=== PATIENT | female | born 1940 | race Caucasian/White ===

== ENCOUNTER → 2017-07-29 | Outpatient (CLI) | payer MEDICARE, BC ==
[2017-07-29 09:00] LABS: Basophils # (A) 0.1 k/uL (0-0.2); Basophils % (A) 1 %; Eosinophils # (A) 0.4 k/uL (0-0.7); Eosinophils % (A) 7 %; HCT 41.4 % (34.0-46.0); HGB 13.4 gm/dL (11.4-16.0); Lymphocytes # (A) 1.3 k/uL (1.0-4.8); Lymphocytes % (A) 24 %; MCH 31.4 pg (25.0-35.0); MCHC 32.3 g/dL (31.0-37.0); MCV 97.3 fL (80.0-100.0); Mean Platelet Volume 6.1; Monocytes # (A) 0.6 k/uL (0-1.0); Monocytes % (A) 11 %; Neutrophils # (A) 2.8 k/uL (1.3-7.7); Neutrophils % (A) 53 %; Platelet Count 309 k/uL (150-450); RBC 4.25 m/uL (3.80-5.40); RDW 15.2 % (11.5-15.5); WBC 5.3 k/uL (3.8-10.6)
[2017-07-29 09:06] LABS: ALT 40 U/L (9-52); AST 34 U/L (14-36); Albumin 4.4 g/dL (3.5-5.0); Alkaline Phosphatase 75 U/L (38-126); Anion Gap 9 mmol/L; Blood Urea Nitrogen 13 mg/dL (7-17); Calcium 9.5 mg/dL (8.4-10.2); Carbon Dioxide 27 mmol/L (22-30); Chloride 97 mmol/L (98-107); Cholesterol 306 mg/dL (<200); Creatine Kinase 43 U/L (30-135); Glucose 99 mg/dL (74-99); Potassium 4.4 mmol/L (3.5-5.1); Sodium 133 mmol/L (137-145); Total Bilirubin 0.8 mg/dL (0.2-1.3); Triglycerides 91 mg/dL (<150); Uric Acid 5.3 mg/dL (3.7-7.4)
[2017-07-29 09:13] LABS: LDL Cholesterol,Calculated 97 mg/dL (0-99)
[2017-07-29 09:21] LABS: T4, Free (Free Thyroxine) 0.97 ng/dL (0.78-2.19)
[2017-07-29 09:38] LABS: HDL Cholesterol 191 mg/dL (40-60)
[2017-07-29 09:56] LABS: Appearance,Urine Cloudy (Clear); Bacteria,Urine Rare /hpf; Bilirubin,Urine Negative (Negative); Blood,Urine Negative (Negative); Color,Urine Yellow; Glucose,Urine (UA) Negative (Negative); Hyaline Casts,Urine 1 /lpf (0-2); Ketones,Urine Negative (Negative); Leukocyte Esterase,Urine Negative (Negative); Mucus,Urine Rare /hpf; Nitrite,Urine Negative (Negative); PH, Urine 6.5 (5.0-8.0); Protein,Urine Negative (Negative); RBC,Urine <1 /hpf (0-5); Squamous Epithelial Cell,Urine 21 /hpf (0-4); Urobilinogen,Urine <2.0 mg/dL (<2.0); WBC,Urine 1 /hpf (0-5)
[2017-07-29 16:29] LABS: Vitamin D 25 Hydroxy 18.4 ng/mL (30.0-100.0)
[2017-07-29 18:14] LABS: Folate, Serum 9.6 ng/mL
[2017-07-29 20:32] LABS: Hemoglobin A1C 5.3 % (4.0-6.0)
--- NOTE | 2017-08-03 09:40 | P.ARTDOP ---
Arterial Doppler LOWER EXTREMITY ARTERIAL DOPPLER: DATE OF SERVICE: 07/29/2017 Reason for study: Bilateral leg pain at rest. Doppler waveforms: Multiphasic throughout on the left. Below the popliteal cyst atypical on the right.. Pulse volume recording: Mild distal blunting. Pressure gradients: Across the knee bilaterally and mild gradient below the knee on the right. Ankle-brachial indices: 0.69 on the right and 0.82 on the left. Toe pressures: 67 on the right, 113 on the left Impression: Moderate right fem-pop disease. Mild left fem-pop disease. Clinical correlation recommended. Does not appear to be severe enough for true rest pain..
== END | disposition home or self-care (01) ==
LOC: RADUSWWP 08:23
PROVIDERS: ATTEND Internal Medicine
DX: I73.9 Peripheral vascular disease, unspecified (principal); E55.9 Vitamin D deficiency, unspecified; I10 Essential (primary) hypertension; R53.83 Other fatigue; J44.9 Chronic obstructive pulmonary disease, unspecified
CPT/HCPCS: 80053; 80061; 81001; 82306; 82550; 82607; 82746; 83036; 84439; 84443; 84550; 85025; 93923

== ENCOUNTER 2017-10-22 08:42 | Emergency (ER) | payer MEDICARE, BC ==
[2017-10-22 08:56] VITALS: RESP 18; TEMP 98
[2017-10-22] MEDS ORDERED: KETOROLAC 30 MG/ML 1 ML VIAL IM STA (09:22)
[2017-10-22] MEDS ORDERED: ORPHENADRINE 30 MG/ML 2 ML VIAL IM STA (09:22)
--- NOTE | 2017-10-22 09:29 | ED ---
General Adult HPI - General Chief complaint: Back Pain/Injury Stated complaint: Back Pain Time Seen by Provider: 10/22/17 08:50 Source: patient, RN notes reviewed Mode of arrival: ambulatory Limitations: no limitations - History of Present Illness Initial comments: This is a 76-year-old female who presents to the emergency room complaining of left-sided back pain. Patient states it's spasm and she's had for many years. Patient states she is out of her pain medicine because she has not followed up with her pain doctor recently. Patient states the pain is on the paraspinous muscles on the left. Patient denies any new injury or trauma. Patient denies any numbness weakness. Patient denies any fever chills. Patient states this pain is the same pain she is gotten for many many years. - Related Data Previous Rx's Medication Instructions Recorded Hydrocodone/Acetaminophen [[place] 1 each PO Q4HR PRN #14 tab 10/22/17 5-325] Ibuprofen [Motrin] 600 mg PO Q6HR PRN #20 tab 10/22/17 Orphenadrine [Norflex] 100 mg PO Q12H #20 tablet.er 10/22/17 Allergies Allergy/AdvReac Type Severity Reaction Status Date / Time diazepam [From Valium] Allergy Unknown Verified 11/16/15 08:07 Review of Systems ROS Statement: Those systems with pertinent positive or pertinent negative responses have been documented in the HPI. ROS Other: All systems not noted in ROS Statement are negative. Past Medical History Past Medical History: COPD, Hypertension Additional Past Medical History / Comment(s): BACK PAIN, HIP PAIN History of Any Multi-Drug Resistant Organisms: None Reported Past Surgical History: Appendectomy, Section, Hysterectomy Past Psychological History: No Psychological Hx Reported Smoking Status: Never smoker Past Alcohol Use History: Daily Past Drug Use History: None Reported General Exam - General Exam Comments Initial Comments: GENERAL: Patient is well-developed and well-nourished. Patient is nontoxic and well- hydrated and is in mild distress. ENT: Neck is soft and supple. No significant lymphadenopathy is noted. Oropharynx is clear. Moist mucous membranes. Neck has full range of motion without eliciting any pain. EYES: The sclera were anicteric and conjunctiva were pink and moist. Extraocular movements were intact and pupils were equal round and reactive to light. Eyelids were unremarkable. PULMONARY: Unlabored respirations. Good breath sounds bilaterally. No audible rales rhonchi or wheezing was noted. CARDIOVASCULAR: There is a regular rate and rhythm without any murmurs gallops or rubs. ABDOMEN: Soft and nontender with normal bowel sounds. SKIN: Skin is clear with no lesions or rashes and otherwise unremarkable. NEUROLOGIC: Patient is alert and oriented x3. Cranial nerves II through XII are grossly intact. Motor and sensory are also intact. Normal speech, volume and content. Symmetrical smile. MUSCULOSKELETAL: Patient's paraspinous muscles on the left lower back are tender to palpation. LYMPHATICS: No significant lymphadenopathy is noted PSYCHIATRIC: Normal psychiatric evaluation. Limitations: no limitations Course Vital Signs 10/22/17 08:51 Temperature 98.0 F Pulse Rate 94 Respiratory 18 Rate Blood Pressure 198/99 O2 Sat by Pulse 94 L Oximetry Disposition Clinical Impression: Chronic back pain Disposition: HOME SELF-CARE Condition: Good Instructions: Chronic Back Pain (ED) Prescriptions: Hydrocodone/Acetaminophen [[place] 5-325] 1 each PO Q4HR PRN #14 tab PRN Reason: Pain Ibuprofen [Motrin] 600 mg PO Q6HR PRN #20 tab PRN Reason: For pain Orphenadrine [Norflex] 100 mg PO Q12H #20 tablet.er Is patient prescribed a controlled substance at d/c from ED?: Yes When asked, does pt state using other controlled substances?: No If prescribed controlled substance>3 days was MAPS reviewed?: Prescribed <3 Days If opioid is for acute pain is fill amount 7 days or less?: Yes If Rx opioid, was Start Talking consent form obtained?: Yes Referrals: Jessica Stanley MD [Primary Care Provider] - 1-2 days Time of Disposition: 10:27
[2017-10-22] MEDS ORDERED: HYDROmorphone 1 MG/ML 1 ML SYRINGE IM STA (10:04)
[2017-10-22 10:43] VITALS: BP 212/110; PULSE 93
== END 2017-10-22 10:43 | disposition home or self-care (01) ==
LOC: EC 08:42
DX: G89.29 Other chronic pain (principal); M54.9 Dorsalgia, unspecified; Z88.8 Allergy status to other drugs, medicaments and biological substances
CPT/HCPCS: 99283; 96372 ×3; J2360; J1885; J1170

== ENCOUNTER 2017-12-06 15:22 | Emergency (ER) | payer MEDICARE, BC ==
[2017-12-06] MEDS ORDERED: ACETAMINOPHEN TAB 325 MG TAB PO STA (15:52)
--- NOTE | 2017-12-06 15:55 | ED ---
Fall HPI - General Chief Complaint: Fall Stated Complaint: fall Time Seen by Provider: 12/06/17 15:38 Source: patient, EMS, RN notes reviewed Mode of arrival: EMS Limitations: no limitations - History of Present Illness Initial Comments: This is a 77-year-old female who presents to the emergency department with chief complaint of fall injury. Patient states prior to arrival she was playing cards at the local [employer]. She states that she was walking down the [employer] ramp, lost her balance and fell forward, landing on her face. Denies loss of consciousness, nausea or vomiting, dizziness. She does report a headache and facial pain. Denies being on any blood thinners. Denies neck or back pain. Denies any other injuries or trauma. Denies chest pain or shortness of breath, abdominal pain, nausea or vomiting. - Related Data Home Medications Medication Instructions Recorded Confirmed Albuterol Sulfate [Proair Hfa] 1 - 2 puff INHALATION Q6HR PRN 12/02/17 12/02/17 Cyclobenzaprine [Flexeril] 10 mg PO DAILY PRN 12/02/17 12/02/17 Hydrocodone/Acetaminophen 1 tab PO DAILY PRN 12/02/17 12/02/17 [Hydrocodone-Acetamin 7.5-300] Levothyroxine Sodium 25 mcg PO DAILY 12/02/17 12/02/17 Losartan [Cozaar] 50 mg PO QAM 12/02/17 12/02/17 Turmeric Root Extract [Turmeric] 500 mg PO DAILY 12/02/17 12/02/17 buPROPion [Wellbutrin] 75 mg PO DAILY 12/02/17 12/02/17 Previous Rx's Medication Instructions Recorded Cephalexin [Keflex] 500 mg PO Q12HR #10 cap 12/06/17 Allergies Allergy/AdvReac Type Severity Reaction Status Date / Time No Known Allergies Allergy Verified 12/01/17 15:53 Review of Systems ROS Statement: Those systems with pertinent positive or pertinent negative responses have been documented in the HPI. ROS Other: All systems not noted in ROS Statement are negative. Past Medical History Past Medical History: COPD, Hypertension, Pulmonary Embolus (PE), Thyroid Disorder Additional Past Medical History / Comment(s): BACK AND HIP PAIN. Hx irregular heartbeat yrs ago. Hx PE yrs ago. History of Any Multi-Drug Resistant Organisms: None Reported Past Surgical History: Appendectomy, Section, Hysterectomy Additional Past Surgical History / Comment(s): Section X2, bilateral cataract removal with lens implants. Past Anesthesia/Blood Transfusion Reactions: No Reported Reaction Past Psychological History: No Psychological Hx Reported Smoking Status: Former smoker Past Alcohol Use History: Daily Past Drug Use History: None Reported - Past Family History Brother(s) Family Medical History: Cancer Daughter(s) Additional Family Medical History / Comment(s): 2 daughter's with anerysyms. General Exam - General Exam Comments Initial Comments: General: Awake and alert, well-developed; in no apparent distress. Patient is lying comfortably on ED stretcher. HEENT: Left frontal and supraorbital soft tissue hematomas. Superficial skin abrasion to the bridge of the nose and left ala. Superficial skin abrasion, ecchymosis and swelling left lower lip and chin. Pupils are equal, round and reactive to light. Extraocular movements intact. Oropharynx moist without erythema. Neck: Supple. Normal ROM. No tenderness. Cardiovascular: Regular rate and rhythm. No murmurs, rubs or gallops. Chest symmetrical. Respiratory: Lungs clear to auscultation bilaterally. No wheezes, rales or rhonchi. Normal respiratory effort with no use of accessory muscles. Abdomen: Soft, non-tender, non-distended. No rigidity, rebound or guarding. Musculoskeletal: Normal ROM, no tenderness bilateral upper and lower extremities. Skin: [place], warm and dry. Superficial skin tear with no active bleeding to the lateral dorsal right wrist. Neurological: Alert and oriented x3. CN II-XII grossly intact. Speech is fluent and answers are appropriate. No focal neuro deficits. Psychiatric: Normal mood and affect. No overt signs of depression or anxiety noted. Limitations: no limitations Back exam: Present: normal inspection, full ROM. Absent: tenderness, paraspinal tenderness, vertebral tenderness Course Vital Signs 12/06/17 12/06/17 12/06/17 15:36 18:05 18:15 Temperature 97.3 F L 97.6 F Pulse Rate 100 91 92 Respiratory 22 18 18 Rate Blood Pressure 207/101 201/101 O2 Sat by Pulse 96 96 Oximetry Medical Decision Making - Medical Decision Making This is a 77-year-old female who presents to the emergency department with chief complaint of fall injury. Patient reports losing her balance and falling forward, landing on her face. Patient sustained hematomas to the left frontal and supraorbital regions, a superficial skin abrasion to the bridge of the nose and a superficial skin abrasion and ecchymosis to the left lower lip and chin. A computed tomography scan of the brain and facial bones was obtained. Computed tomography scan of the brain revealed no acute intracranial abnormalities. Computed tomography scan of the facial bones did reveal evidence for a chip fracture of the nasal bone. No other fractures were noted. Patient's wounds were thoroughly cleansed with sterile water. Dressings were placed. Patient was instructed to follow up with ENT within 1-2 days for evaluation of the nasal bone fracture. As there is overlying skin abrasion, this will be treated as an open fracture. Patient given a dose of Ancef in the emergency department and will be discharged home with Keflex. Patient is also made up-to-date with tetanus vaccination. Patient is in no acute distress and will be discharged home at this time. She is in agreement with plan and voices understanding. All questions have been answered. Upon discharge, patient states that she went to use the bathroom and noticed an abrasion to her left knee. Patient has normal range to motion of the knee and is ambulating normally. There is a skin tear to the lateral left knee as well as bruising medially. - Radiology Data Radiology results: report reviewed CT brain without contrast impression: 1. Fluid white matter hypodensities suggests severe burning of chronic small vessel ischemic disease. No acute intracranial abnormality seen. 2. Large left frontal and left supraorbital scalp contusion. No underlying calvarial fracture. 3. Facial bones reported separately. CT facial bones without contrast impression: 1. Left frontal and supraorbital as well as left pre-mandibular soft tissue contusions. 2. Additional soft tissue injury along the left anterior bridge of the nose with suggestion of a tiny underlying 2-3 mm chip fracture of the anterior nasal bone. 3. Leftward nasal septal deviation Disposition Clinical Impression: Facial contusion, Nasal bone fracture, Fall Disposition: HOME SELF-CARE Condition: Good Instructions: Nasal Fracture (ED), Fall Prevention for Older Adults (ED), Facial Contusion (ED) Additional Instructions: Please take medications as prescribed. As discussed, please follow-up with ENT within 1-2 days. Please follow up with primary care provider within 1-2 days. Return to emergency department if symptoms should worsen or any concerns arise. Prescriptions: Cephalexin [Keflex] 500 mg PO Q12HR #10 cap Is patient prescribed a controlled substance at d/c from ED?: No Referrals: Jesscia Stanley MD [Primary Care Provider] - 1-2 days Akil Hallman MD [STAFF PHYSICIAN] - 1-2 days Time of Disposition: 18:00
--- NOTE | 2017-12-06 16:22 | CT ---
EXAMINATION TYPE: CT brain wo con DATE OF EXAM: 12/06/2017 COMPARISON: None HISTORY: 77-year-old female with fall today. No LOC. Multiple facial injuries. TECHNIQUE: Examination was done in axial plane without intravenous contrast. Coronal and sagittal r econstructions performed. CT DLP: 1964 mGycm (total of 2 scans) Automated exposure control for dose reduction was used. FINDINGS: There is no evidence of acute intracranial hemorrhage, acute ischemic changes, mass, mass-effect, or extra-axial fluid collection. There is no effacement of cerebral sulci or basal subarachnoid cister ns. There is no hydrocephalus. There is no midline shift. Larson-white matter distinction is preserv ed. Large left frontal scalp and supraorbital contusion. No underlying calvarial fracture. There is severe confluent white matter hypodensities in both cerebral hemispheres and mild central ce rebral atrophy. Atherosclerotic calcifications within the carotid siphons. Mastoid air cells well pneumatized. Facial bones reported separately. IMPRESSION: 1. Confluent white matter hypodensities suggest severe burden of chronic small vessel ischemic diseas e. No acute intracranial abnormality seen. 2. Large left frontal and left supraorbital scalp contusion. No underlying calvarial fracture. 3. Facial bones reported separately.
--- NOTE | 2017-12-06 16:31 | CT ---
EXAMINATION TYPE: CT facial bones wo con DATE OF EXAM: 12/06/2017 COMPARISON: HISTORY: None 77-year-old female fall, pain, facial injury TECHNIQUE: Contiguous axial scanning of the without IV contrast. Coronal and sagittal reconstructions performed. CT DLP: 1964 from 1 scan with multiple recons for brain and facial mGycm Automated exposure control for dose reduction was used. FINDINGS: There is left premandibular soft tissue contusion. No underlying mandibular fracture. The TMJs are in tact. Zygomatic arches in pterygoid plates are intact. Orbits and globes are intact. There is some soft tissue air along the left anterior nose. Leftward nasal septal deviation. Minimal irregularity along the left median tip of the nasal bone, axial image 52 and coronal image 9. IMPRESSION: 1. LEFT FRONTAL AND SUPRAORBITAL WELL LEFT PREMANDIBULAR SOFT TISSUE CONTUSIONS. 2. ADDITIONAL SOFT TISSUE INJURY ALONG THE LEFT ANTERIOR BRIDGE OF THE NOSE WITH SUGGESTION OF A TINY UNDERLYING 2 TO 3 MM CHIP FRACTURE OF THE ANTERIOR NASAL BONE, AXIAL IMAGE 52 AND CORONAL IMAGE 9. 3. LEFTWARD NASAL SEPTAL DEVIATION.
[2017-12-06] MEDS ORDERED: ceFAZolin 1,000 MG VIAL IM STA (17:02)
[2017-12-06] MEDS ORDERED: DIPH,PERTUS(ACELL)TETVAC-LF 0.5 ML VIAL IM ONE (17:03)
[2017-12-06] MEDS ORDERED: cloNIDine HCL 0.2 MG TAB PO STA (18:05)
[2017-12-06 18:07] VITALS: BP 201/101; RESP 18
[2017-12-06 18:28] VITALS: PULSE 92; TEMP 97.6
== END 2017-12-06 16:15 | disposition home or self-care (01) ==
LOC: EC 15:22
DX: S02.2XXA Fracture of nasal bones, initial encounter for closed fracture (principal); S00.531A Contusion of lip, initial encounter; S00.83XA Contusion of other part of head, initial encounter; S81.012A Laceration without foreign body, left knee, initial encounter; J44.9 Chronic obstructive pulmonary disease, unspecified; I10 Essential (primary) hypertension; Z79.899 Other long term (current) drug therapy; Z86.711 Personal history of pulmonary embolism; Z87.891 Personal history of nicotine dependence; W01.198A Fall on same level from slipping, tripping and stumbling with subsequent striking against other object, initial encounter; Y93.01 Activity, walking, marching and hiking
CPT/HCPCS: 70486; 70450; 90715; 99284; 90471; 96372; J0690

== ENCOUNTER 2017-12-07 12:19 | Day surgery (SDC) | payer MEDICARE, BC ==
[2017-12-01 16:18] VITALS: BMI 26.8
[2017-12-07] MEDS ORDERED: SODIUM CHLORIDE 0.9% 1,000 ML IV ONE (13:05)
[2017-12-07] MEDS ORDERED: ASPIRIN 325 MG TAB PO STA (13:16)
[2017-12-07] MEDS ORDERED: ATORVASTATIN 80 MG TAB PO STA (13:16)
[2017-12-07] MEDS ORDERED: SODIUM CHLORIDE 0.9% 1,000 ML in EMPTY BAG 1 BAG IV ONE (13:16)
[2017-12-07] MEDS ORDERED: ALPRAZolam 0.25 MG TAB PO PRN (13:16)
[2017-12-07] MEDS ORDERED: ALPRAZolam 0.5 MG TAB PO PRN (13:16)
[2017-12-07] MEDS ORDERED: NITROGLYCERIN SL TABS 0.4 MG TAB SUBLINGUAL PRN (13:16)
[2017-12-07] MEDS ORDERED: fentaNYL (PF) 50 MCG/ML 2 ML AMP IVP ONE (15:03)
[2017-12-07] MEDS ORDERED: MIDAZOLAM 2 MG/2 ML VIAL IVP ONE (15:03)
[2017-12-07] MEDS ORDERED: LIDOCAINE 1% (PF) 10MG/ML VIAL SQ ONE (15:06)
[2017-12-07] MEDS ORDERED: IOPAMIDOL-370 125ML BTL INJ ONE (15:19)
[2017-12-07] MEDS ORDERED: IOPAMIDOL-250 50ML BTL INTRAARTER ONE (15:26)
[2017-12-07] MEDS ORDERED: RX INFO: IV CONTRAST WAS GIVEN 1 EACH MISC MISCELLANE PRN (15:37)
[2017-12-07] MEDS ORDERED: SODIUM CHLORIDE 0.9% 1,000 ML IV SCH (15:45)
--- NOTE | 2017-12-07 16:33 | IR ---
Fluoroscopy HISTORY: Pain in leg 4.4 minutes fluoroscopy time supplied to the referring clinician. 500 intraoperative C-arm images do cument the procedure. See dictated report from cardiology.
--- NOTE | 2017-12-07 16:44 | LTR ---
DATE OF SERVICE: December 07, [address] Stanley: Ms. Yecenia Murcia underwent a heart catheterization as well as an abdominal aortogram and bilateral lower extremities runoff. The heart catheterization revealed extremely calcified right and left coronary system with severe triple-vessel coronary artery disease. The abdominal aortogram and bilateral lower extremity runoff revealed severe extremely calcified peripheral arterial system with severe disease involving the SFA bilaterally. I am going to discharge the patient home later on today and I will follow up with her in the office to discuss with her the option of revascularization of the heart as well as the legs. I want to thank you for allowing us to participate in her care and please do not hesitate to call if you have any questions or concerns. Sincerely, SHILPI / LUISN: [id number] /
--- NOTE | 2017-12-07 16:44 | CC ---
CARDIAC CATHETERIZATION REPORT DATE OF SERVICE: December 07, 2017 PERFORMING PHYSICIAN: Chapo Miranda MD, internet e commerce specialist. PROCEDURE PERFORMED: 1. Selective right and left coronary angiogram. 2. Left heart catheterization. INDICATION: This is a pleasant 77-year-old female patient who was experiencing symptoms of exertional dyspnea concerning for angina. She underwent a myocardial perfusion imaging stress test and that revealed ischemia in the distribution of 3 coronary arteries. Because of that, heart catheterization was advised. APPROACH: Right common femoral artery. COMPLICATION: None. LEVEL OF SEDATION: Moderate with sedation length of 14 minutes. PROCEDURE DESCRIPTION: After obtaining an informed consent, the patient was brought to the cardiac laboratory animal caretaker. The right common femoral artery was cannulated using micropuncture technique and a micropuncture wire passed easily. Then I placed a 6-[place] Islander sheath in the right common femoral artery. After that, I did selective right and left coronary angiogram using JR4 and JL4 catheters. Left heart catheterization was performed. A 6-[place] pigtail catheter. The procedure was completed without any complication. CORONARY ANGIOGRAM: 1. The right coronary artery is a large caliber vessel and it is a dominant vessel. The proximal RCA has eccentric lesion was best appreciated on the EVELIN caudal view and appears to be in the range of 70%. The mid RCA appeared to have mild disease only and RCA distally appeared to have mild disease only and bifurcates into PDA and PLV branches both are angiographically normal. 2. The left main is angiographically normal. It bifurcates into the circumflex and left anterior descending artery. 3. The left circumflex is a moderate caliber vessel. It is a nondominant vessel. The ostial circumflex appeared to have a lesion in the range of 70%. The proximal circumflex appeared to be angiographically normal and gives rise into the first OM branch which appeared to be angiographically normal. The circ in the midportion gives rise to a second OM branch which appeared to be angiographically normal. Then the circumflex continued after that in the AV groove as a moderate caliber vessel. 4. The LAD: The proximal LAD appeared to have disease in the range of 60% to 70%. The mid LAD appeared to have mild disease only and the LAD distally appeared to be angiographically normal. HEMODYNAMICS: The left ventricular end-diastolic pressure was around 11 mmHg and no gradient was identified across aortic valve. CONCLUSION: 1. Extremely calcified right and left coronary system. 2. Severe triple-vessel coronary artery disease. 3. Severe disease involving the proximal right coronary artery. 4. Severe disease involving the ostial left circumflex. 5. Severe disease involving the ostial left anterior descending artery. POSTPROCEDURE MANAGEMENT: 1. At this point maximize medical treatment. 2. Consult surgeon for the evaluation of coronary artery bypass grafting. MMYE / LUISN: [id number] /
--- NOTE | 2017-12-07 17:11 | AN ---
ANGIOGRAPHY REPORT DATE OF SERVICE: 12/07/2017 PERFORMING PHYSICIAN: Chapo Miranda MD, line service technician. PROCEDURES PERFORMED: 1. Abdominal aortogram. 2. Bilateral lower extremity runoff. INDICATION: This is a pleasant 77-year-old female patient who was experiencing bilateral lower extremity intermittent claudication and underwent an arterial duplex study which revealed severe femoropopliteal disease. Because of that, an abdominal aortogram and bilateral lower extremity runoff were advised. APPROACH: Right common femoral artery. COMPLICATIONS: None. LEVEL OF SEDATION: Moderate with sedation length of 10 minutes. PROCEDURE DESCRIPTION: The procedure was performed after heart catheterization was performed on the patient. Please refer to the description at the heart catheterization report. I did place a pigtail catheter at the aorta just by the takeoff of the renal arteries. Then I did bilateral lower extremity runoff after the catheter was pulled into above the of the right and left common iliac arteries. The procedure was completed without any complication. PERIPHERAL ANGIOGRAM: 1. The aorta appeared to have mild disease only and it is extremely calcified. 2. Common iliac arteries appeared to have mild to moderate diffuse disease. 3. Internal iliac arteries. The right and left internal iliac arteries appeared to be angiographically normal. 4. External iliac arteries. The right and left external iliac arteries appeared to have mild to moderate disease as well. 5. Common femoral arteries. The right and left common femoral arteries appeared to be angiographically normal. 6. Profundae. The right and left profundae are patent. 7. The SFA. The right SFA is extremely calcified with multiple lesions up to about 80% to 90% at the Sha canal. The left SFA is also extremely calcified with multiple lesions in the range of 80% at the Sha canal. 8. Popliteal. The right and left popliteals appeared to have mild to moderate diffuse disease. 9. Below the knee. Fully visualized arteries below the knees bilaterally. CONCLUSION: 1. 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 2. Severe femoropopliteal disease with severe bilateral SFA. 3. Severe [id number]-ukl-[id number] disease bilaterally. POST-PROCEDURE MANAGEMENT: 1. Maximize medical treatment at this point of time. 2. If the patient's symptoms persist in spite of maximized medical treatment, I would pursue an intervention of the right and left SFA. MMODL / IJN: [id number] /
[2017-12-07 19:30] VITALS: BP 136/80; PULSE 77; RESP 16; TEMP 98.4
== END 2017-12-07 21:10 | disposition home or self-care (01) ==
LOC: CATHCVL 12:19 → 1SOBS 15:37 → CATHCVL 21:10
PROVIDERS: ATTEND Internal Medicine Interventional Cardiology
DX: I25.10 Atherosclerotic heart disease of native coronary artery without angina pectoris (principal); I70.213 Atherosclerosis of native arteries of extremities with intermittent claudication, bilateral legs; I10 Essential (primary) hypertension; E78.5 Hyperlipidemia, unspecified; Z79.82 Long term (current) use of aspirin; J44.9 Chronic obstructive pulmonary disease, unspecified; Z79.890 Hormone replacement therapy; Z79.899 Other long term (current) drug therapy; Z87.891 Personal history of nicotine dependence; Z82.49 Family history of ischemic heart disease and other diseases of the circulatory system; E78.1 Pure hyperglyceridemia
CPT/HCPCS: 93458; 75625; 75716; C1894; C1769 ×2; J2250; J3010; J2001; Q9966; Q9967

== ENCOUNTER → 2017-12-22 | Outpatient (CLI) | payer MEDICARE, BC ==
[2017-12-22 10:03] LABS: HCT 36.2 % (34.0-46.0); HGB 11.8 gm/dL (11.4-16.0); MCH 31.7 pg (25.0-35.0); MCHC 32.6 g/dL (31.0-37.0); MCV 97.2 fL (80.0-100.0); Mean Platelet Volume 6.3; Platelet Count 293 k/uL (150-450); RBC 3.72 m/uL (3.80-5.40); RDW 13.8 % (11.5-15.5); WBC 5.9 k/uL (3.8-10.6)
[2017-12-22 10:23] LABS: ALT 31 U/L (9-52); AST 34 U/L (14-36); Albumin 3.9 g/dL (3.5-5.0); Alkaline Phosphatase 106 U/L (38-126); Anion Gap 8 mmol/L; Blood Urea Nitrogen 10 mg/dL (7-17); Calcium 9.2 mg/dL (8.4-10.2); Carbon Dioxide 27 mmol/L (22-30); Chloride 97 mmol/L (98-107); Cholesterol 208 mg/dL (<200); Glucose 110 mg/dL (74-99); Magnesium 1.8 mg/dL (1.6-2.3); Potassium 4.6 mmol/L (3.5-5.1); Sodium 132 mmol/L (137-145); Total Bilirubin 0.6 mg/dL (0.2-1.3); Total Protein 6.7 g/dL (6.3-8.2); Triglycerides 103 mg/dL (<150)
[2017-12-22 10:24] LABS: INR 1.4 (<1.2); Partial Thromboplastin Time 23.5 sec (22.0-30.0); Prothrombin Time 13.1 sec (9.0-12.0)
[2017-12-22 10:29] LABS: Appearance,Urine Clear (Clear); Bilirubin,Urine Negative (Negative); Blood,Urine Negative (Negative); Color,Urine Yellow; Glucose,Urine (UA) Negative (Negative); Ketones,Urine Negative (Negative); Leukocyte Esterase,Urine Negative (Negative); Nitrite,Urine Negative (Negative); PH, Urine 6.5 (5.0-8.0); Protein,Urine Negative (Negative); Specific Gravity,Urine 1.006 (1.001-1.035); Urobilinogen,Urine <2.0 mg/dL (<2.0)
[2017-12-22 10:46] LABS: LDL Cholesterol,Calculated 62 mg/dL (0-99)
[2017-12-22 10:47] LABS: HDL Cholesterol 125 mg/dL (40-60)
--- NOTE | 2017-12-22 12:38 | US ---
EXAMINATION TYPE: US carotid duplex BILAT DATE OF EXAM: 12/22/2017 COMPARISON: 10/27/2015 CLINICAL HISTORY: I25.10 CAD. EXAM MEASUREMENTS: RIGHT: Peak Systolic Velocity (PSV) cm/sec ----- Right CCA: 50.8 ----- Right ICA: 85.9 ----- Right ECA: 102. ICA/CCA ratio: 1.69 RIGHT: End Diastole cm/sec ----- Right CCA: 10.8 ----- Right ICA: 10.2 ----- Right ECA: 8.5 LEFT: Peak Systolic Velocity (PSV) cm/sec ----- Left CCA: 82.0 ----- Left ICA/BULB: 145.0 ----- Left ECA: 192 ICA/CCA ratio: 1.76 LEFT: End Diastole cm/sec ----- Left CCA: 15.9 ----- Left ICA/Bulb: 33.0 ----- Left ECA: 14.0 VERTEBRALS (direction of flow): Right Vertebral: Antegrade Left Vertebral: Antegrade Rhythm: Normal Moderate to severe atherosclerotic changes with slight elevations seen on left. IMPRESSION: 1. Moderate to severe atherosclerotic changes bilaterally with no significant hemodynamic stenosis. G iven the amount of atherosclerotic plaque consider follow-up CTA of the carotid bifurcations. Criteria for Assigning % of Stenosis / Diameter reduction (Estimation based on the indirect measurements of the internal carotid artery velocities (ICA PSV). 1. Normal (no stenosis)=ICA PSV < 125 cm/s: ratio < 2.0: ICA EDV<40 cm/s. 2. Less than 50% stenosis=ICA PSV < 125 cm/s: ratio < 2.0: ICA EDV<40 cm/s. 3. 50 to 69% stenosis=ICA PSV of 125 to 230 cm/s: ration 2.0 ? 4.0: ICA EDV 40-100 cm/s. 4. Greater than 70% stenosis to near occlusion= ICA PSV > 230 cm/s: ratio > 4.0: ICA EDV > 100 cm/s. 5. Near occlusion= ICA PSV velocities may be low or undetectable: variable ratio and ICA EDV. 6. Total occlusion=unable to detect flow.
--- NOTE | 2017-12-22 12:49 | XR ---
EXAMINATION TYPE: XR chest 2V DATE OF EXAM: 12/22/2017 COMPARISON: 08/31/2017 TECHNIQUE: PA and lateral views submitted. HISTORY: Cough FINDINGS: No overt failure or consolidation. Pleural tenting of the right lung base with subsegmental consolida tion is stable. Atherosclerotic change aorta. No overt failure. Hypertrophic and degenerative change of the spine. Hyperinflation suggests COPD. IMPRESSION: 1. No acute process. Stable right basilar subsegmental atelectasis favored over pneumonia correlate c linically. 2. Correlate for COPD
--- NOTE | 2017-12-22 17:13 | ECHOF ---
Referral Reason:PRE SURGICAL TESTING MEASUREMENTS -------- HEIGHT: 157.5 cm WEIGHT: 64.4 kg BP: IVSd: 1.3 cm (0.6 - 1.1) LVIDd: 4.0 cm (3.9 - 5.3) LVPWd: 1.2 cm (0.6 - 1.1) IVSs: 1.4 cm LVIDs: 2.6 cm LVPWs: 1.4 cm LAESV Index (A-L): 25.92 ml/m Ao Diam: 3.5 cm (2.0 - 3.7) AV Cusp: 2.0 cm (1.5 - 2.6) LA Diam: 2.3 cm (2.7 - 3.8) MV EXCURSION: 15.184 mm (> 18.000) MV EF SLOPE: 72 mm/s (70 - 150) EPSS: 0.6 cm MV E Lars: 0.55 m/s MV DecT: 380 ms MV A Lars: 0.90 m/s MV E/A Ratio: 0.61 RAP: 5.00 mmHg RVSP: 30.57 mmHg FINDINGS -------- Sinus rhythm. This was a technically adequate study. The left ventricular size is normal. There is mild concentric left ventricular hypertrophy. Overa ll left ventricular systolic function is normal with, an EF between 55 - 60 %. The right ventricle is normal in size and function. Normal LA size by volume 22+/-6 ml/m2. The right atrium is normal in size. Aortic valve is trileaflet and is mildly thickened. There is no evidence of aortic regurgitation. There is no evidence of aortic stenosis. The mitral valve leaflets are mildly thickened. There is trace to mild mitral regurgitation. Mild tricuspid regurgitation present. Right ventricular systolic pressure is normal at < 35 mmHg. There is no evidence of pulmonary hypertension. Trace/mild (physiologic) pulmonic regurgitation. The aortic root size is normal. Normal inferior vena cava with normal inspiratory collapse consistent with estimated right atrial pre ssure of 5 mmHg. There is no pericardial effusion. CONCLUSIONS -------- 1. Sinus rhythm. 2. This was a technically adequate study. 3. The left ventricular size is normal. 4. There is mild concentric left ventricular hypertrophy. 5. Overall left ventricular systolic function is normal with, an EF between 55 - 60 %. 6. Normal LA size by volume 22+/-6 ml/m2. 7. Aortic valve is trileaflet and is mildly thickened. 8. The mitral valve leaflets are mildly thickened. 9. There is trace to mild mitral regurgitation. 10. Mild tricuspid regurgitation present. 11. Right ventricular systolic pressure is normal at < 35 mmHg. 12. There is no evidence of pulmonary hypertension. 13. Trace/mild (physiologic) pulmonic regurgitation. 14. The aortic root size is normal. 15. There is no pericardial effusion. SENIOR ARCHITECT/DESIGN MANAGER: Eduardo Rivers RDCS
[2017-12-22 18:08] LABS: Hemoglobin A1C 5.3 % (4.0-6.0)
[2017-12-22 19:45] LABS: Hepatitis A Antibody IgM Non-Reactive (Non-Reactive); Hepatitis B Core IgM Non-Reactive (Non-Reactive)
== END ==
LOC: LABPAT 08:50
PROVIDERS: ATTEND Surgery
DX: Z01.810 Encounter for preprocedural cardiovascular examination (principal); I65.23 Occlusion and stenosis of bilateral carotid arteries; I08.0 Rheumatic disorders of both mitral and aortic valves; I08.1 Rheumatic disorders of both mitral and tricuspid valves; I10 Essential (primary) hypertension; E03.9 Hypothyroidism, unspecified; J44.9 Chronic obstructive pulmonary disease, unspecified; Z51.81 Encounter for therapeutic drug level monitoring; Z79.01 Long term (current) use of anticoagulants; Z79.899 Other long term (current) drug therapy
CPT/HCPCS: 36415; 71046; 80053; 80061; 80074; 81003; 83036; 83735; 84443; 85027; 85610; 85730; 86850; 86900; 86901; 86920; 87070; 87086; 93005; 93306; 93880; 93970; 94150

== ENCOUNTER 2017-12-28 06:18 | Inpatient (IN) | payer MEDICARE, BC ==
--- NOTE | 2017-12-27 15:19 | P.PN ---
Progress Note - Text Progress Note Date: 12/22/17 5 meter walk test done 12/22/17: #1 5.49 sec #2 5.62 sec #3 4.63 sec
[~2017-12-28 06:18] MED LIST: ALBUMIN HUMAN 25% 50 ML IV ONE; ALBUMIN HUMAN 5% 500 ML IVPB ONE; ASPIRIN 325 MG TAB PO ONE; ATORVASTATIN 10 MG TAB PO ONE; CALCIUM CHLORIDE 100 MG/ML 10 ML SYRINGE IV ONE; CEFAZOLIN IRRIGATION ONE; CHLORHEXIDINE GLUCONATE 15 ML CUP MUCOUS MEM ONE; CLEVIDIPINE BUTYRATE 25 MG in EMPTY BAG 1 BAG IV ONE; DEXTROSE 5% IN WATER 1,000 ML with POTASSIUM CHLORIDE 110 MEQ, MAGNESIUM SULFATE 16 MEQ... IV ONE; DEXTROSE 5% IN WATER 1,000 ML with POTASSIUM CHLORIDE 25 MEQ, SODIUM CHLORIDE 2.5MEQ/ML... IRRIGATION ONE; HEPARIN SODIUM 1,000 UN/ML (10ML VL) IV ONE; HEPARIN SODIUM,PORCINE 5,000 UNIT in SODIUM CHLORIDE 0.9% 500 ML 500 ML IV ONE; INSULIN REGULAR 100 UNIT in SODIUM CHLORIDE 0.9% 100 ML IV ONE; LACTATED RINGERS 1,000 ML IV ONE; MAGNESIUM SULFATE MG 500 MG/ML IV ONE; MANNITOL 25% 12.5 GM/50 ML VIAL IV ONE; METOPROLOL TARTRATE 12.5 MG TAB PO ONE; NITROGLYCERIN SL TABS 0.4 MG TAB SUBLINGUAL PRN; NITROGLYCERIN-D5W PMX 25 MG/250 ML BTL IV ONE; NITROGLYCERIN-D5W PMX 50 MG in DEXTROSE/WATER 1 250ML.BAG IV ONE; NOREPINEPHRINE 4 MG in SODIUM CHLORIDE 0.9% 250 ML IV ONE; PAPAVERINE 360 MG in SODIUM CHLORIDE 0.9% 90 ML IV ONE; PHENYLEPHRINE 40 MG in SODIUM CHLORIDE 0.9% 250 ML IV ONE; PHENYLEPHRINE-0.9% NACL SYG 1 MG/10 ML SYRINGE IV ONE; PROPOFOL 1,000 MG/100 ML VIAL IV ONE; PROTAMINE SULFATE 10 MG/ML 25 ML VIAL IV ONE; PROTAMINE SULFATE 250 MG in EMPTY BAG 1 BAG IV ONE; SODIUM BICARB 8.4% 50 ML SYR (1 MEQ/ML) IV ONE; SODIUM CHLORIDE 0.9% 1,000 ML IV ONE; SODIUM CHLORIDE IRRIG IRRIGATION ONE; TRANEXAMIC ACID 2,000 MG in SODIUM CHLORIDE 0.9% 180 ML IV ONE; ceFAZolin 2,000 MG in SODIUM CHLORIDE 0.9% 30 ML IVPB ONE
[2017-12-28] MEDS ORDERED: SUCCINYLCHOLINE CHLORIDE 100 MG/5 ML SYR IV ONE (09:45)
[2017-12-28] MEDS ORDERED: fentaNYL (PF) 50 MCG/ML 2 ML AMP ONE (09:45)
[2017-12-28] MEDS ORDERED: SODIUM BICARB 8.4% 50 ML SYR (1 MEQ/ML) ONE (09:45)
[2017-12-28] MEDS ORDERED: SODIUM CHLORIDE 0.9% IRRIG 1,000 ML BTL IRRIGATION ONE (09:45)
[2017-12-28] MEDS ORDERED: HEPARIN SODIUM,PORCINE 10,000 UNIT/ML 1 ML VIAL ONE (09:45)
[2017-12-28] MEDS ORDERED: PROTAMINE SULFATE 10 MG/ML 5 ML VIAL IV ONE (09:45)
[2017-12-28] MEDS ORDERED: TRANEXAMIC ACID 1,000 MG/10 ML VIAL ONE (09:45)
[2017-12-28] MEDS ORDERED: ELECTROLYTE-R (PH 7.4) 1,000 ML IV.SOLN IV ONE (09:45)
[2017-12-28] MEDS ORDERED: PHENYLEPHRINE-0.9% NACL SYG 1 MG/10 ML SYRINGE ONE (09:45)
[2017-12-28] MEDS ORDERED: MAGNESIUM SULFATE 4 MEQ/ML 10ML VIAL ONE (09:45)
[2017-12-28] MEDS ORDERED: fentaNYL (PF) 50 MCG/ML 50 ML VIAL ONE (09:45)
[2017-12-28] MEDS ORDERED: PROTAMINE SULFATE 10 MG/ML 25 ML VIAL IV ONE (09:45)
[2017-12-28] MEDS ORDERED: ePHEDrine SULFATE/0.9% NACL/PF 50 MG/5 ML SYRINGE IV ONE (09:45)
[2017-12-28] MEDS ORDERED: SODIUM CHLORIDE 0.9% 250 ML BAG ONE (09:45)
[2017-12-28] MEDS ORDERED: ALBUMIN HUMAN 5% 500 ML VIAL IVPB ONE (09:45)
[2017-12-28] MEDS ORDERED: MIDAZOLAM 2 MG/2 ML VIAL ONE (09:45)
[2017-12-28] MEDS ORDERED: WATER FOR INJECTION, STERILE 10 ML VIAL IV ONE (09:45)
[2017-12-28] MEDS ORDERED: PROPOFOL 10 MG/ML 20 ML VIAL IV ONE (09:45)
[2017-12-28] MEDS ORDERED: VECURONIUM 10 MG VIAL IV ONE (09:45)
[2017-12-28] MEDS ORDERED: ALBUTEROL INHALER 60 PUFF/8 GM INHALER INHALATION ONE (09:45)
[2017-12-28] MEDS ORDERED: LIDOCAINE 2% SYG (PF) 100 MG/5 ML ONE (09:45)
[2017-12-28 10:20] LABS: ABG HCO3 26 mmol/L (21-25); ABG PCO2 44 mmHg (35-45); ABG PH 7.38 (7.35-7.45); ABG PO2 361 mmHg (83-108); ABG Potassium Whole Blood 3.9 mmol/L (3.4-4.5); ABG Sodium Whole Blood 133 mmol/L (135-146); ABG TCO2 28 mmol/L (19-24)
[2017-12-28 13:14] LABS: ABG Base Excess 1.7 mmol/L; ABG HCO3 25 mmol/L (21-25); ABG PCO2 35 mmHg (35-45); ABG PH 7.47 (7.35-7.45); ABG PO2 366 mmHg (83-108); ABG Potassium Whole Blood 4.8 mmol/L (3.4-4.5); ABG Sodium Whole Blood 127 mmol/L (135-146); ABG TCO2 26 mmol/L (19-24)
[2017-12-28 13:43] LABS: ABG Base Excess 2.2 mmol/L; ABG HCO3 26 mmol/L (21-25); ABG PCO2 33 mmHg (35-45); ABG PO2 360 mmHg (83-108); ABG Potassium Whole Blood 4.8 mmol/L (3.4-4.5); ABG Sodium Whole Blood 127 mmol/L (135-146); ABG TCO2 27 mmol/L (19-24)
[2017-12-28 14:13] LABS: ABG Base Excess 0.2 mmol/L; ABG HCO3 25 mmol/L (21-25); ABG PCO2 39 mmHg (35-45); ABG PH 7.41 (7.35-7.45); ABG Potassium Whole Blood 4.5 mmol/L (3.4-4.5); ABG Sodium Whole Blood 130 mmol/L (135-146); ABG TCO2 26 mmol/L (19-24)
[2017-12-28 14:49] LABS: ABG Base Excess -3.6 mmol/L; ABG HCO3 22 mmol/L (21-25); ABG Oxygen Saturation 99.8 % (94-97); ABG PCO2 39 mmHg (35-45); ABG PH 7.36 (7.35-7.45); ABG PO2 226 mmHg (83-108); ABG Potassium Whole Blood 3.6 mmol/L (3.4-4.5); ABG Sodium Whole Blood 132 mmol/L (135-146); ABG TCO2 23 mmol/L (19-24)
[2017-12-28 15:29] LABS: ABG PO2 >420 mmHg (83-108)
[2017-12-28] MEDS ORDERED: ALBUMIN HUMAN 5% 250 ML in EMPTY BAG 1 BAG IVPB PRN (15:39)
[2017-12-28] MEDS ORDERED: Magnesium Replacement Protocol 1 EACH MISC MISCELLANE PRN (15:39)
[2017-12-28] MEDS ORDERED: DEXTROSE 5% IN WATER 100 ML with AMIODARONE 150 MG IV PRN (15:39)
[2017-12-28] MEDS ORDERED: MORPHINE SULFATE 2 MG/ML SYRINGE IVP PRN (15:39)
[2017-12-28] MEDS ORDERED: Potassium Replacement Protocol 1 EACH MISC MISCELLANE PRN (15:39)
[2017-12-28] MEDS ORDERED: INSULIN REGULAR 100 UNIT in SODIUM CHLORIDE 0.9% 100 ML IV SCH (15:39)
[2017-12-28] MEDS ORDERED: IPRATROPIUM-ALBUTEROL 3 ML NEB INHALATION PRN (15:39)
[2017-12-28] MEDS ORDERED: ONDANSETRON 4 MG/2 ML VIAL IVP PRN (15:39)
[2017-12-28] MEDS ORDERED: BENZOCAINE/MENTHOL LOZENG 1 EACH LOZENGE MUCOUS MEM PRN (15:39)
[2017-12-28] MEDS ORDERED: METOCLOPRAMIDE 5 MG/ML 2 ML VIAL IVP PRN (15:39)
[2017-12-28] MEDS ORDERED: NITROGLYCERIN-D5W PMX 50 MG in DEXTROSE/WATER 1 250ML.BAG IV SCH (15:39)
[2017-12-28] MEDS ORDERED: AMIODARONE 450 MG in DEXTROSE 5% IN WATER 250 ML IV PRN ×2 (15:39)
[2017-12-28] MEDS ORDERED: CALCIUM CHLORIDE 1,000 MG in SODIUM CHLORIDE 0.9% 100 ML IV PRN (15:39)
[2017-12-28] MEDS ORDERED: Phosphorus Replacement Protoco 1 EACH MISC MISCELLANE PRN (15:39)
[2017-12-28 16:01] LABS: Glucose,Whole Blood 124 mg/dL (75-99)
[2017-12-28 16:24] LABS: Ionized Calcium 4.3 mg/dL (4.5-5.3)
[2017-12-28 16:28] LABS: Basophils % (A) 0 %; Eosinophils # (A) 0.3 k/uL (0-0.7); Eosinophils % (A) 5 %; Lymphocytes # (A) 0.9 k/uL (1.0-4.8); Lymphocytes % (A) 18 %; MCH 31.5 pg (25.0-35.0); MCHC 33.3 g/dL (31.0-37.0); MCV 94.7 fL (80.0-100.0); Mean Platelet Volume 7.7; Monocytes # (A) 0.1 k/uL (0-1.0); Monocytes % (A) 1 %; Neutrophils # (A) 3.6 k/uL (1.3-7.7); Neutrophils % (A) 74 %; RBC 1.83 m/uL (3.80-5.40); RDW 14.9 % (11.5-15.5); WBC 4.8 k/uL (3.8-10.6)
[2017-12-28 16:29] LABS: INR 2.5 (<1.2); Prothrombin Time 22.9 sec (9.0-12.0)
--- NOTE | 2017-12-28 16:29 | XR ---
EXAMINATION TYPE: XR chest 1V portable DATE OF EXAM: 12/28/2017 COMPARISON: Prior chest x-ray 12/22/2017 HISTORY: Postop cardiac surgery TECHNIQUE: Single frontal view of the chest is obtained. FINDINGS: Patient is post median sternotomy. Endotracheal tube, NG tube, left chest tube, right jugu lar central venous catheter and sheath are present, distal tip of the catheter overlying the pulmonar y artery. There are overlying cardiac leads. Epicardial pacing leads are noted. Median sternal drains in place. No evident pneumothorax or pleural effusion. Patchy basilar density noted. Heart size may be accentuated by technique, the aorta is dense, punctate metallic densities present at the level of the transverse aorta. IMPRESSION: Satisfactory postoperative chest x-ray. There may be basilar atelectasis. Additional fin dings above, punctate metallic density overlying the aorta.
[2017-12-28 16:30] LABS: HGB 5.8 gm/dL (11.4-16.0)
[2017-12-28 16:31] LABS: HCT 17.4 % (34.0-46.0)
[2017-12-28 16:31] LABS: ABG Base Excess -2.3 mmol/L; ABG HCO3 24 mmol/L (21-25); ABG PCO2 47 mmHg (35-45); ABG PH 7.32 (7.35-7.45); ABG PO2 >400 mmHg (83-108); ABG TCO2 25 mmol/L (19-24)
[2017-12-28 16:34] LABS: ALT 25 U/L (9-52); AST 20 U/L (14-36); Albumin 3.2 g/dL (3.5-5.0); Alkaline Phosphatase <20 U/L (38-126); Anion Gap 9 mmol/L; Blood Urea Nitrogen 9 mg/dL (7-17); Calcium 7.5 mg/dL (8.4-10.2); Carbon Dioxide 22 mmol/L (22-30); Chloride 105 mmol/L (98-107); Glucose 102 mg/dL (74-99); Magnesium 2.5 mg/dL (1.6-2.3); Potassium 3.5 mmol/L (3.5-5.1); Sodium 136 mmol/L (137-145); Total Bilirubin 0.7 mg/dL (0.2-1.3); Total Protein 4.6 g/dL (6.3-8.2)
--- NOTE | 2017-12-28 16:41 | P.CNPUL ---
History of Present Illness Consult date: 12/28/17 Chief complaint: Coronary artery bypass surgery, post thoracotomy, ventilator management, CO History of present illness: This is a 77-year-old female patient, known history of COPD with a preop FEV1 of 70% of predicted, and addition to coronary artery disease, peripheral vascular disease and hypertension, who was experiencing symptoms of exertional dyspnea and angina. She underwent stress test and she was found to have reversible ischemia and based on that the patient underwent a cardiac catheterization and she was found to have extreme calcified right and left coronary arteries, severe triple-vessel disease, severe disease involving the proximal RCA, severe disease involving the ostial circumflex and severe disease involving the ostial left anterior descending coronary artery. Based on this, the patient was referred for bypass surgery and the patient underwent three- vessel bypass with LOPES to LAD. Preop echocardiogram showed a preserved LV function with an ejection fraction of 55-60%. The patient has mild concentric left ventricular hypertrophy. I'm seeing this patient immediately after she arrived to the intensive care unit. She is sedated, comfortable likely distress. She is on a mechanical ventilator. She is an assist-control mode of ventilation, at a rate of 12, tidal volume of 400 with an FiO2 of 100% and PEEP of 5. Chest x-ray showed adequate expansion of both lungs. The patient is to mediastinal and 1 pleural chest tube on the left. Output is minimal at this point. There is no evidence of any air leak. There is no evidence of pneumothorax. The the blood gas showed a pH of 7.31 with a pCO2 of 46 and FiO2 is more than 400. Based on these results, increased respiratory rate up to 18. And I also drop the FiO2 down to 50%. She is producing adequate amount of urine output. She arrived to the ICU from the operating room with 12 mics of levo fed and currently she is off pressors. Cardiac output is at 2.6 with an index of 4.4. Pulmonary artery pressures are nonelevated. Review of Systems ROS unobtainable: due to endotracheal tube Past Medical History Past Medical History: COPD, Hypertension, Musculoskeletal Disorder, Pulmonary Embolus (PE), Thyroid Disorder Additional Past Medical History / Comment(s): Multivessel coronary artery disease with triple-vessel involvement, COPD, chronic back pain, chronic degenerative arthritis with hip pain, remote history of pulmonary embolism, hypothyroidism. History of Any Multi-Drug Resistant Organisms: None Reported Past Surgical History: Appendectomy, Section, Heart Catheterization, Hysterectomy Additional Past Surgical History / Comment(s): Section X2, bilateral cataract removal with lens implants. Past Anesthesia/Blood Transfusion Reactions: No Reported Reaction Smoking Status: Former smoker - Past Family History Brother(s) Family Medical History: Cancer Daughter(s) Additional Family Medical History / Comment(s): 2 daughter's with aneursyms. Medications and Allergies Home Medications Medication Instructions Recorded Confirmed Type Albuterol Sulfate [Proair Hfa] 1 - 2 puff INHALATION Q6HR PRN 12/02/17 12/28/17 History Cyclobenzaprine [Flexeril] 10 mg PO DAILY PRN 12/02/17 12/28/17 History Levothyroxine Sodium 25 mcg PO DAILY 12/02/17 12/28/17 History Losartan [Cozaar] 50 mg PO QAM 12/02/17 12/28/17 History Turmeric Root Extract [Turmeric] 500 mg PO DAILY 12/02/17 12/28/17 History buPROPion [Wellbutrin] 75 mg PO DAILY 12/02/17 12/28/17 History Aspirin 81 mg PO DAILY 12/22/17 12/28/17 History Atorvastatin [Lipitor] 80 mg PO DAILY 12/22/17 12/28/17 History Carvedilol [Coreg] 3.125 mg PO BID 12/22/17 12/28/17 History Ipratropium Nebulized [Atrovent 0.5 mg INHALATION BID 12/22/17 12/28/17 History Nebulized] Ipratropium/Albuterol Sulfate 2 puff INHALATION BID 12/22/17 12/28/17 History [Combivent Respimat Inhaler] Mupirocin 2% Oint [Bactroban 2% 1 applic TOPICAL BID 12/27/17 12/28/17 History Oint] Allergies Allergy/AdvReac Type Severity Reaction Status Date / Time No Known Allergies Allergy Verified 12/28/17 07:01 Physical Exam Vitals: Vital Signs Temp Pulse Pulse Resp BP BP Pulse Ox 12/28/17 07:13 98.4 F 77 77 18 177/71 190/93 95 Intake and Output 12/28/17 12/28/17 12/28/17 06:59 14:59 22:59 Intake Total 33 310 Output Total 1275 Balance -1242 310 Intake: IV 33 Blood Product 0 310 Rc Pheresis 2 As3 Unit 0 310 [id number] Output: Urine 475 Estimated Blood Loss 800 Other: Weight 66.4 kg Gen. appearance she is calm comfortable likely distress intubated on a mechanical ventilator. Head exam was generally normal. There was no scleral icterus or corneal arcus. Mucous membranes were moist. Neck was supple and without jugular venous distension, thyromegaly, or carotid bruits. Carotids were easily palpable bilaterally. There was no adenopathy. The patient has a right IJ [place]-Court catheter in place. Lungs sounds are diminished is prolongation of expiratory phase of breathing and scattered expiratory wheezes throughout the lung diaz. Sternal stable clean and intact. The patient has 2 mediastinal and 1 left sided pleural chest tube. No evidence of any air leak. Cardiac exam revealed the PMI to be normally situated and sized. The rhythm was regular and no extrasystoles were noted during several minutes of auscultation. The first and second heart sounds were normal and physiologic splitting of the second heart sound was noted. There were no murmurs, rubs, clicks, or gallops. Abdominal exam revealed normal bowel sounds. The abdomen was soft, non-tender, and without masses, organomegaly, or appreciable enlargement of the abdominal aorta. Examination of the extremities revealed easily palpable radial, femoral and pedal pulses. There was no cyanosis, clubbing or edema. Surgical wound site over the right lower extremities intact at this point in time. Pulses are diminished at the present. No cyanosis. No clubbing. Results - Laboratory Findings CBC and BMP: 12/28/17 15:58 12/28/17 15:58 ABG ABG pH 7.32 (7.35-7.45) L 12/28/17 16:29 ABG pCO2 47 mmHg (35-45) H 12/28/17 16:29 ABG pO2 >400 mmHg (83-108) H 12/28/17 16:29 ABG O2 Saturation 100.0 % (94-97) H 12/28/17 16:29 Abnormal lab findings: Abnormal Labs 12/22/17 12/28/17 12/28/17 08:56 10:18 13:12 RBC Hgb Hct ABG pH 7.47 H ABG pCO2 ABG pO2 361 H 366 H ABG HCO3 26 H ABG Total CO2 28 H 26 H ABG O2 Saturation 100.0 H 100.0 H ABG Hematocrit 31 L 20 L* ABG Sodium 133 L 127 L ABG Potassium 4.8 H ABG Ionized Calcium 4.1 L ABG Glucose 107 H 195 H ABG Lactic Acid Hemoglobin 10.2 L 6.7 L* Sodium Creatinine Glucose POC Glucose (mg/dL) Calcium Ionized Calcium Brittany Magnesium Alkaline Phosphatase Total Protein Albumin Arterial Blood Potassium 4.8 H Arterial Blood Glucose 107 H 195 H Crossmatch See Detail 12/28/17 12/28/17 12/28/17 13:41 14:11 14:47 RBC Hgb Hct ABG pH 7.50 H ABG pCO2 33 L ABG pO2 360 H >420 H 226 H ABG HCO3 26 H ABG Total CO2 27 H 26 H ABG O2 Saturation 100.0 H 100.0 H 99.8 H ABG Hematocrit 20 L* 20 L* 19 L* ABG Sodium 127 L 130 L 132 L ABG Potassium 4.8 H ABG Ionized Calcium 4.1 L 4.1 L ABG Glucose 226 H 183 H 135 H ABG Lactic Acid 2.1 H Hemoglobin 6.5 L* 6.4 L* 6.0 L* Sodium Creatinine Glucose POC Glucose (mg/dL) Calcium Ionized Calcium Brittany Magnesium Alkaline Phosphatase Total Protein Albumin Arterial Blood Potassium 4.8 H Arterial Blood Glucose 226 H 183 H 135 H Crossmatch 12/28/17 12/28/17 12/28/17 15:58 15:58 15:59 RBC 1.83 L Hgb 5.8 L* D Hct 17.4 L* ABG pH ABG pCO2 ABG pO2 ABG HCO3 ABG Total CO2 ABG O2 Saturation ABG Hematocrit ABG Sodium ABG Potassium ABG Ionized Calcium ABG Glucose ABG Lactic Acid Hemoglobin Sodium 136 L Creatinine 0.44 L Glucose 102 H POC Glucose (mg/dL) 124 H Calcium 7.5 L Ionized Calcium Brittany 4.3 L Magnesium 2.5 H Alkaline Phosphatase <20 L Total Protein 4.6 L Albumin 3.2 L Arterial Blood Potassium Arterial Blood Glucose Crossmatch 12/28/17 16:29 RBC Hgb Hct ABG pH 7.32 L ABG pCO2 47 H ABG pO2 >400 H ABG HCO3 ABG Total CO2 25 H ABG O2 Saturation 100.0 H ABG Hematocrit ABG Sodium ABG Potassium ABG Ionized Calcium ABG Glucose ABG Lactic Acid Hemoglobin Sodium Creatinine Glucose POC Glucose (mg/dL) Calcium Ionized Calcium Brittany Magnesium Alkaline Phosphatase Total Protein Albumin Arterial Blood Potassium Arterial Blood Glucose Crossmatch - Diagnostic Findings Chest x-ray: image reviewed Assessment and Plan Plan: Assessment 1 triple-vessel coronary artery disease, symptomatic with exertional angina and shortness of breath, patient underwent three-vessel bypass surgery and currently she is postop day #0 2 post thoracotomy, currently intubated on mechanical ventilator on an assist- control mode of ventilation. Patient has 2 mediastinal and 1 pleural chest tube. Chest x-ray shows no acute abnormalities in the lungs are well expanded without evidence of any pneumothorax. 3 anemia with hemoglobin of 5.8, active outcome of surgery, post cardiac surgery 4 COPD, severe at baseline FEV1 in the 70% range, preoperatively. 5 chronic back pain 6 hypothyroidism 7 hypertension 8 peripheral vascular disease Plan Keep the patient on a mechanical ventilator. Increased respiratory rate up to 18. Switch this patient an assist-control mode of ventilation. Blood gases was noted. Chest x-ray was noted. Hemodynamics was noted. Patient is not on any pressors. We'll wean down the FiO2 down to 50%. We'll check weaning parameters once the patient is awake and would proceed with weaning protocol and anticipate extubation within next 4-6 hours. Meanwhile, hemoglobin is at 5.8 and this is to be treated. Would recommend transfusion with 2 units of packed RBC if this is acceptable by the surgeon. Restart the patient on DuoNeb nebulized treatments around the clock. We'll continue to follow.
[2017-12-28 16:52] LABS: Platelet Count 82 k/uL (150-450); Polychromasia Present; Stomatocytes Present
[2017-12-28] MEDS: IPRATROPIUM-ALBUTEROL 3 ML NEB INHALATION SCH ×3 (16:59→19:19)
[2017-12-28 17:09] LABS: Glucose,Whole Blood 102 mg/dL (75-99)
[2017-12-28] MEDS ORDERED: PANTOPRAZOLE 40 MG/10 ML VIAL IVP ONE (17:22)
[2017-12-28] MEDS: LACTATED RINGERS 1,000 ML IV SCH (17:43)
[2017-12-28] MEDS: CLEVIDIPINE BUTYRATE 25 MG in EMPTY BAG 1 BAG IV SCH (17:43)
[2017-12-28] MEDS: ACETAMINOPHEN IV (For NPO) 1,000 MG in EMPTY BAG 1 BAG IVPB SCH (17:44)
[2017-12-28 18:12] LABS: Glucose,Whole Blood 131 mg/dL (75-99)
[2017-12-28 19:07] LABS: Glucose,Whole Blood 148 mg/dL (75-99)
[2017-12-28 20:13] LABS: Glucose,Whole Blood 155 mg/dL (75-99)
--- NOTE | 2017-12-28 21:02 | OP ---
OPERATIVE REPORT PROCEDURE: 12/28/2017. SURGEON: Dr. Valencia. MANUFACTURING QUALITY TECHNICIAN: ERIKA Chambers and Bud Vázquez Nurse practitioner. PREOPERATIVE DIAGNOSES: 1. Triple-vessel coronary artery disease. 2. Preserved left ventricular function. 3. Chronic obstructive pulmonary disease. 4. Severe peripheral vascular disease. 5. Hypertension. 6. Preserved left ventricular function. POSTOPERATIVE DIAGNOSES: 1. Triple-vessel coronary artery disease. 2. Preserved left ventricular function. 3. Chronic obstructive pulmonary disease. 4. Severe peripheral vascular disease. 5. Hypertension. 6. Preserved left ventricular function. DESCRIPTION OF PROCEDURE: 1. Triple coronary artery bypass grafting using the left internal mammary artery to the left anterior descending artery, reverse saphenous vein graft from the aorta to the 1st obtuse marginal artery, reverse saphenous vein graft from the aorta to the posterior descending artery. 2. Endoscopic harvesting of the left greater saphenous vein. 3. Intraoperative JEAN PIERRE and epiaortic scanning. 4. Intraoperative graft flow measurements using the StyleTechstim system. INDICATION FOR SURGERY: Patient is a 77-year-old lady who was brought in for dyspnea on exertion as well as intermittent claudication. She underwent cardiac catheterization that showed severe proximal calcific coronary artery disease. She also had evidence of severe peripheral vascular disease with bilateral severe superficial femoral artery stenosis. The patient is brought in today for coronary artery bypass grafting. The STS risk was discussed with her and her family. They understood it and agreed to proceed. DESCRIPTION OF THE PROCEDURE: The patient in supine position. The right internal jugular [place]-Court catheter and right radial arterial line were placed. She had normal PA pressure and a cardiac index of 2.2. Subsequently, she was brought to the operating room where general endotracheal anesthesia was induced uneventfully. She received 2 g of cefazolin intravenously. A Segovia catheter was inserted. The chest, abdomen and both lower extremities were prepped and draped using ChloraPrep. Ioban was used to cover the skin. Transesophageal echocardiogram confirmed the preoperative finding of moderate left ventricular hypertrophy and preserved systolic function and no significant valvular abnormality. 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 The left hemisternum was elevated and the left internal mammary artery was harvested in a somewhat skeletonized fashion. The left pleura was intentionally opened in this process and was drained with a 19-Andorran Damián drain. The lung was noted to be hyperinflated. The right pleura remained intact. No bone wax was used. In the same setting, the left greater saphenous vein was harvested endoscopically after administration of 2000 units of heparin. All the branches were tied. The leg incisions were closed over a drain. The vein appeared to be of reasonable quality with a size proportional to the patient body habitus of around 3.5-4 mm. Mediastinal fat was transected between 2 ties and epiaortic scanning revealed concentric intimal thickening but no protruding atheroma in the ascending aorta. Pericardium was opened in an inverted T-fashion and a pericardial cradle was created. Findings included a normal soft aorta and mildly hypertrophied heart with friable tissue. After systemic heparinization and after placement of respective pledgeted pursestring, aortic cannulation with a 21-Andorran soft flow cannula and venous cannulation via the right atrial appendage was performed. Antegrade as well as retrograde cardioplegia catheter were placed. We initially initiated cardiopulmonary bypass and remained warm. We looked at the target and appeared that the LAD when it emerged distally, the posterior descending artery and the 1st obtuse marginal artery in its mid to distal aspect after wall disease area would be the site for bypass. The aorta was clamped. The aorta was clamped and myocardial protection was achieved with initial dose of antegrade cold blood cardioplegia followed by a dose of retrograde cold blood cardioplegia. However as we were given the retrograde dose, we noticed as we were looking at the back of the heart, leak from what seems to be a venous branch injury away from the coronary arteries. For that reason, the retrograde cannula was removed and no more retrograde cardioplegia was given. The rest of the protection was achieved with intermittent antegrade cold blood cardioplegia. That area was reinforced with pledgeted Prolene 4- 0. The coronary sinus per se was intact. I reinforced the area by patching a piece of autologous pericardium with CoSeal over that area for better protection. The 1st distal anastomosis was seen in segment of reverse saphenous vein graft and the proximal posterior descending artery which was appeared to be around 1.7 mm in diameter with normal wall using Prolene 7-0 in continuous fashion. The 2nd distal anastomosis was between another segment of vein and the middle branching of the long 1st obtuse marginal artery. It was opened in a soft area. It was around 1.5 mm in diameter at that level and the anastomosis completed using Prolene 7-0 in continuous fashion. The third and last distal anastomosis was to the left internal mammary artery and the mid to distal left anterior descending artery as it emerged from an intramyocardial course. It was around 1.5 mm diameter at that level and thin-walled and the anastomosis was completed using Prolene 7-0 in continuous fashion. The mammary veins were affixed to the epicardium with Prolene and 7-0 sutures on either side. Satisfied with the distal anastomosis, attention was moved to performing the 2 proximal anastomosis. Rewarming was started. Two buttons of 4 mm each were punched out of the ascending aorta and the 2 proximal anastomosis performed using Prolene 6-0 in continuous fashion. The patient was given lidocaine and magnesium before unclamping the aorta. She regained spontaneous sinus rhythm. However, she was bradycardic. Two monopolar atrial pacing wires were affixed to the respective pursing of the right atrium. One bipolar ventricular pacing was driven via the inferior aspect of the right ventricle. The area of repair posteriorly was intact with no evidence of bleeding. After a period of reperfusion and atrially paced at 70 we were able to wean off cardiac bypass. JEAN PIERRE showed good LV function and no significant valvular abnormality. The patient required, however, a bit of vasopressor support as she was dilated. At this point, the hematocrit was 18 and she was given 1 unit of packed red blood cells. Eventually test dose than full dose protamine were given after measuring flow and achieving excellent flow in all 3 grafts. The flow into the vein going to the posterior descending artery was 42 mL/minute with a pulsatility index of 1.9, diastolic filling of 60%. The flow into the vein going to the obtuse marginal artery was 20 mL/minute, pulsatility index of 3.5, and diastolic filling of 67%. The flow into the left internal mammary artery to the left anterior descending artery was 24 mL/minute, pulsatility index of 2.6, and diastolic filling of 65%. Decannulation followed. A groove was made in the left pleura pericardial fat to accommodate the mammary artery medial to the lung and away from the posterior sternal table. Mediastinal fat was draped over the proximal aspect of the graft and the aorta. Two Damián 19-Andorran drain were left, 1 in the posterior pericardium and 1 substernally. After ensuring adequate hemostasis and hemodynamic and after correct sponge, instrument, and needle count, the sternum was closed using 6 interrupted stainless steel wires after interposing fibular between the sternal edges. Thorough irrigation of cefazolin followed. The rest of the closure proceeded in layers. Skin glue was applied. The patient received 1 unit of packed red blood cells and 150 mL of Cell Saver blood. She was transferred to the ICU with a cardiac index of 2.2, PA pressure of 30/16 , atrially paced at 70 with a baseline normal sinus rhythm around 55 and a mean arterial pressure of 68 on low-dose Levophed. MMODL / IJN: [id number] / MTDD
[2017-12-28 21:14] LABS: Glucose,Whole Blood 148 mg/dL (75-99)
[2017-12-28 21:21] LABS: Basophils % (A) 0 %; Eosinophils # (A) 0.4 k/uL (0-0.7); Eosinophils % (A) 7 %; Lymphocytes # (A) 0.5 k/uL (1.0-4.8); Lymphocytes % (A) 8 %; MCH 32.2 pg (25.0-35.0); MCHC 34.9 g/dL (31.0-37.0); MCV 92.2 fL (80.0-100.0); Mean Platelet Volume 6.8; Monocytes # (A) 0.3 k/uL (0-1.0); Monocytes % (A) 6 %; Neutrophils # (A) 4.4 k/uL (1.3-7.7); Neutrophils % (A) 78 %; RBC 1.99 m/uL (3.80-5.40); RDW 15.5 % (11.5-15.5); WBC 5.6 k/uL (3.8-10.6)
[2017-12-28 21:23] LABS: HCT 18.3 % (34.0-46.0); HGB 6.4 gm/dL (11.4-16.0); Platelet Count 98 k/uL (150-450)
[2017-12-28 21:36] LABS: ALT 26 U/L (9-52); AST 32 U/L (14-36); Albumin 3.2 g/dL (3.5-5.0); Alkaline Phosphatase 20 U/L (38-126); Anion Gap 7 mmol/L; Blood Urea Nitrogen 10 mg/dL (7-17); Calcium 7.7 mg/dL (8.4-10.2); Carbon Dioxide 23 mmol/L (22-30); Chloride 105 mmol/L (98-107); Glucose 128 mg/dL (74-99); INR 1.8 (<1.2); Potassium 4.3 mmol/L (3.5-5.1); Prothrombin Time 16.3 sec (9.0-12.0); Sodium 135 mmol/L (137-145); Total Bilirubin 1.8 mg/dL (0.2-1.3); Total Protein 4.7 g/dL (6.3-8.2)
[2017-12-28 22:29] LABS: Glucose,Whole Blood 122 mg/dL (75-99)
[2017-12-28 22:55] LABS: ABG Base Excess -2.2 mmol/L; ABG HCO3 26 mmol/L (21-25); ABG Oxygen Saturation 99.1 % (94-97); ABG PCO2 64 mmHg (35-45); ABG PH 7.21 (7.35-7.45); ABG PO2 124 mmHg (83-108); ABG TCO2 28 mmol/L (19-24)
[2017-12-28 23:15] LABS: Glucose,Whole Blood 112 mg/dL (75-99)
[2017-12-28] MEDS: ceFAZolin IN SWFI 2 GM/20 ML SYRINGE IVP SCH (23:19)
[2017-12-28] MEDS: MUPIROCIN 2% OINT 22 GM TUBE NASAL SCH (23:19)
[2017-12-29 00:18] LABS: Glucose,Whole Blood 150 mg/dL (75-99)
[2017-12-29] MEDS: HEPARIN SODIUM,PORCINE 5,000 UNIT/ML 1 ML VIAL SQ SCH ×4 (00:21→23:16)
[2017-12-29] MEDS: ACETAMINOPHEN IV (For NPO) 1,000 MG in EMPTY BAG 1 BAG IVPB SCH ×4 (00:32→21:05)
[2017-12-29 01:11] LABS: ABG Base Excess -3.5 mmol/L; ABG HCO3 25 mmol/L (21-25); ABG Oxygen Saturation 98.3 % (94-97); ABG PCO2 66 mmHg (35-45); ABG PO2 106 mmHg (83-108); ABG TCO2 27 mmol/L (19-24)
[2017-12-29 01:12] LABS: Glucose,Whole Blood 143 mg/dL (75-99)
[2017-12-29] MEDS: PROPOFOL 1,000 MG in EMPTY BAG 1 BAG IV SCH ×2 (01:19→07:05)
[2017-12-29 02:01] LABS: Glucose,Whole Blood 123 mg/dL (75-99)
[2017-12-29 03:13] LABS: Glucose,Whole Blood 111 mg/dL (75-99)
[2017-12-29 04:37] LABS: ABG Base Excess -0.7 mmol/L; ABG HCO3 25 mmol/L (21-25); ABG Oxygen Saturation 99.9 % (94-97); ABG PCO2 43 mmHg (35-45); ABG PH 7.37 (7.35-7.45); ABG PO2 195 mmHg (83-108); ABG TCO2 26 mmol/L (19-24)
[2017-12-29 04:37] LABS: Glucose,Whole Blood 112 mg/dL (75-99)
[2017-12-29] MEDS: ceFAZolin IN SWFI 2 GM/20 ML SYRINGE IVP SCH ×2 (04:55→13:04)
[2017-12-29 05:18] LABS: Glucose,Whole Blood 119 mg/dL (75-99)
[2017-12-29 05:23] LABS: Basophils % (A) 0 %; Eosinophils # (A) 0.1 k/uL (0-0.7); Eosinophils % (A) 1 %; Lymphocytes # (A) 0.5 k/uL (1.0-4.8); Lymphocytes % (A) 8 %; MCH 31.4 pg (25.0-35.0); MCHC 33.9 g/dL (31.0-37.0); MCV 92.6 fL (80.0-100.0); Monocytes # (A) 0.5 k/uL (0-1.0); Monocytes % (A) 7 %; Neutrophils # (A) 5.1 k/uL (1.3-7.7); Neutrophils % (A) 82 %; Platelet Count 106 k/uL (150-450); RBC 1.67 m/uL (3.80-5.40); RDW 15.9 % (11.5-15.5); WBC 6.2 k/uL (3.8-10.6)
[2017-12-29 05:27] LABS: INR 1.6 (<1.2); Partial Thromboplastin Time 33.5 sec (22.0-30.0); Prothrombin Time 14.9 sec (9.0-12.0)
[2017-12-29 05:47] LABS: HCT 15.5 % (34.0-46.0); HGB 5.2 gm/dL (11.4-16.0)
[2017-12-29] MEDS ORDERED: NOREPINEPHRINE 4 MG in SODIUM CHLORIDE 0.9% 250 ML IV SCH (06:00)
[2017-12-29 06:01] LABS: Ionized Calcium 4.7 mg/dL (4.5-5.3)
[2017-12-29 06:18] LABS: Glucose,Whole Blood 129 mg/dL (75-99)
[2017-12-29 06:22] LABS: ALT 26 U/L (9-52); AST 37 U/L (14-36); Albumin 3.1 g/dL (3.5-5.0); Alkaline Phosphatase 22 U/L (38-126); Anion Gap 6 mmol/L; Blood Urea Nitrogen 12 mg/dL (7-17); Calcium 7.7 mg/dL (8.4-10.2); Carbon Dioxide 24 mmol/L (22-30); Chloride 107 mmol/L (98-107); Glucose 97 mg/dL (74-99); Magnesium 2.2 mg/dL (1.6-2.3); Sodium 137 mmol/L (137-145); Total Bilirubin 0.6 mg/dL (0.2-1.3); Total Protein 4.6 g/dL (6.3-8.2)
[2017-12-29] MEDS ORDERED: NOREPINEPHRINE 16 MG in SODIUM CHLORIDE 0.9% 250 ML IV SCH (06:30)
[2017-12-29] MEDS: IPRATROPIUM-ALBUTEROL 3 ML NEB INHALATION SCH ×4 (07:29→20:10)
[2017-12-29] MEDS: LEVOTHYROXINE 25 MCG TAB PO SCH (07:50)
[2017-12-29 08:09] LABS: Glucose,Whole Blood 131 mg/dL (75-99)
[2017-12-29] MEDS: PANTOPRAZOLE 40 MG/10 ML VIAL IVP SCH (08:31)
[2017-12-29] MEDS: ATORVASTATIN 40 MG TAB PO SCH (08:32)
[2017-12-29] MEDS: MUPIROCIN 2% OINT 22 GM TUBE NASAL SCH ×2 (08:34→21:12)
[2017-12-29 08:53] LABS: Glucose,Whole Blood 130 mg/dL (75-99)
[2017-12-29] MEDS ORDERED: CLOPIDOGREL 75 MG TAB PO SCH (09:00)
[2017-12-29] MEDS ORDERED: METOPROLOL TARTRATE 12.5 MG TAB PO SCH ×2 (09:00→09:15)
[2017-12-29] MEDS ORDERED: ASPIRIN 325 MG TAB PO SCH (09:00)
--- NOTE | 2017-12-29 09:04 | XR ---
EXAMINATION TYPE: XR chest 1V portable DATE OF EXAM: 12/29/2017 COMPARISON: 12/28/2017 HISTORY: Postop cardiac surgery TECHNIQUE: Single frontal view of the chest is obtained. FINDINGS: ET tube and NG tube are noted. There is a [place]-Court catheter. Bilateral consolidation and pleural effusion seen. There is a left-sided chest tube. The heart is enlarged and is atherosclerotic change aorta. No pneumothorax. No evidence of overt failure. Arthropathy of the shoulders. IMPRESSION: 1. Bilateral consolidation and pleural effusion. Correlate for mild central venous congestion.
[2017-12-29] MEDS ORDERED: FUROSEMIDE 10 MG/ML 2 ML VIAL IV ONE (09:08)
[2017-12-29] MEDS ORDERED: MUPIROCIN 2% OINT 22 GM TUBE NASAL ONE (09:15)
[2017-12-29] MEDS: buPROPion 75 MG TAB PO SCH (09:20)
[2017-12-29 10:03] LABS: Glucose,Whole Blood 117 mg/dL (75-99)
[2017-12-29] MEDS: DEXMEDETOMIDINE/0.9% NACL(PMX) 400 MCG in EMPTY BAG 1 BAG IV SCH ×2 (10:24→23:15)
[2017-12-29 10:55] LABS: Basophils % (A) 0 %; Eosinophils % (A) 1 %; HCT 20.9 % (34.0-46.0); Lymphocytes # (A) 0.7 k/uL (1.0-4.8); Lymphocytes % (A) 9 %; MCH 31.9 pg (25.0-35.0); MCHC 34.4 g/dL (31.0-37.0); MCV 92.7 fL (80.0-100.0); Mean Platelet Volume 7.4; Monocytes # (A) 0.4 k/uL (0-1.0); Monocytes % (A) 6 %; Neutrophils # (A) 6.3 k/uL (1.3-7.7); Neutrophils % (A) 84 %; Platelet Count 105 k/uL (150-450); RBC 2.25 m/uL (3.80-5.40); RDW 15.9 % (11.5-15.5); WBC 7.5 k/uL (3.8-10.6)
[2017-12-29 11:01] LABS: ABG Base Excess -1.5 mmol/L; ABG HCO3 25 mmol/L (21-25); ABG Oxygen Saturation 98.5 % (94-97); ABG PCO2 51 mmHg (35-45); ABG PO2 102 mmHg (83-108); ABG TCO2 27 mmol/L (19-24)
[2017-12-29 11:05] LABS: HGB 7.2 gm/dL (11.4-16.0)
[2017-12-29 11:12] LABS: Glucose,Whole Blood 107 mg/dL (75-99)
--- NOTE | 2017-12-29 11:29 | P.CONS ---
History of Present Illness - Reason for Consult Consult date: 12/29/17 medical management post CABG. Requesting physician: Annie Valencia - Chief Complaint CABG 3. - History of Present Illness This is a 77-year-old female one of my patient with a previous medical history significant for COPD, coronary artery disease, peripheral vascular disease and hypertension, who was experiencing symptoms of exertional dyspnea and angina. She underwent stress test and she was found to have reversible ischemia and based on that the patient underwent a cardiac catheterization and she was found to have extreme calcified right and left coronary arteries, severe triple-vessel disease, severe disease involving the proximal RCA, severe disease involving the ostial circumflex and severe disease involving the ostial left anterior descending coronary artery. Based on this, the patient was referred for bypass surgery and the patient underwent three- vessel bypass with LOPES to LAD, SVG to OM and SVG to PDA, Preop echocardiogram showed a preserved LV function with an ejection fraction of 55-60%. The patient has mild concentric left ventricular hypertrophy, patient was admitted to intensive care unit she is currently on assist mode ventilation with FiO2 of 40% tidal volume of 400 and PEEP of 5, patient was slightly agitated earlier today in the morning and this is delayed her expiration this will be reevaluated in the next few hours hopefully she'll be extubated her on today. Review of Systems ROS unobtainable: due to endotracheal tube (patient is currently sedated on the ventilator.), due to mental status Past Medical History Past Medical History: COPD, Hypertension, Musculoskeletal Disorder, Pulmonary Embolus (PE), Thyroid Disorder Additional Past Medical History / Comment(s): Multivessel coronary artery disease with triple-vessel involvement, COPD, chronic back pain, chronic degenerative arthritis with hip pain, remote history of pulmonary embolism, hypothyroidism. History of Any Multi-Drug Resistant Organisms: None Reported Past Surgical History: Appendectomy, Section, Heart Catheterization, Hysterectomy Additional Past Surgical History / Comment(s): Section X2, bilateral cataract removal with lens implants. Past Anesthesia/Blood Transfusion Reactions: No Reported Reaction Smoking Status: Former smoker Additional Past Alcohol Use History / Comment(s): Patient was a smoker of 1 ppd for many years and quit a few years ago. - Past Family History Brother(s) Family Medical History: Cancer Additional Family Medical History / Comment(s): Patient does not have any brothers. Daughter(s) Additional Family Medical History / Comment(s): Patient has 3 daughters and 2 have from aneursym but patient does not know site. Son(s) Additional Family Medical History / Comment(s): Patient has 3 sons and one has from lung cancer. Father Additional Family Medical History / Comment(s): Father at age 79 and patient does not know cause or medical history. Mother Additional Family Medical History / Comment(s): Mother dies at age 84 from old age. Sister(s) Additional Family Medical History / Comment(s): Patient has one sister wit CAD status post 4 stents. Medications and Allergies Home Medications Medication Instructions Recorded Confirmed Type Albuterol Sulfate [Proair Hfa] 1 - 2 puff INHALATION RT-QID PRN 12/02/17 History Cyclobenzaprine [Flexeril] 10 mg PO DAILY PRN 12/02/17 12/28/17 History Levothyroxine Sodium 25 mcg PO DAILY 12/02/17 12/28/17 History Losartan [Cozaar] 50 mg PO QAM 12/02/17 12/28/17 History Turmeric Root Extract [Turmeric] 500 mg PO DAILY 12/02/17 12/28/17 History buPROPion [Wellbutrin] 75 mg PO DAILY 12/02/17 12/28/17 History Aspirin 81 mg PO DAILY 12/22/17 12/28/17 History Atorvastatin [Lipitor] 80 mg PO DAILY 12/22/17 12/28/17 History Carvedilol [Coreg] 3.125 mg PO BID 12/22/17 12/28/17 History Ipratropium Nebulized [Atrovent 0.5 mg INHALATION RT-BID 12/22/17 12/28/17 History Nebulized] Ipratropium/Albuterol Sulfate 2 puff INHALATION RT-BID 12/22/17 12/28/17 History [Combivent Respimat Inhaler] Mupirocin 2% Oint [Bactroban 2% 1 applic TOPICAL BID 12/27/17 12/28/17 History Oint] Allergies Allergy/AdvReac Type Severity Reaction Status Date / Time No Known Allergies Allergy Verified 12/28/17 17:04 Physical Exam Vitals: Vital Signs Temp Pulse Resp BP Pulse Ox 12/29/17 11:10 70 12/29/17 11:00 72 14 97 12/29/17 10:30 83 15 95 12/29/17 10:00 88 18 93 L 12/29/17 09:30 76 20 98 12/29/17 09:00 98.6 F 75 19 97 12/29/17 08:46 98.6 F 74 19 141/51 12/29/17 08:30 72 22 100 12/29/17 08:20 98.4 F 79 18 129/45 100 12/29/17 08:00 75 19 103/56 100 12/29/17 07:50 71 12/29/17 07:40 98.2 F 87 103/56 99 12/29/17 07:36 68 12/29/17 07:30 80 103/56 99 12/29/17 07:15 77 103/56 100 12/29/17 07:00 98.2 F 73 125 H 103/56 100 12/29/17 06:55 98.1 F 75 18 132/49 12/29/17 06:45 98.1 F 78 39 H 103/56 99 12/29/17 06:30 83 24 103/56 99 12/29/17 06:15 77 25 H 103/56 100 12/29/17 06:00 72 16 103/56 100 12/29/17 05:45 66 14 103/56 100 12/29/17 05:30 69 18 130/68 100 12/29/17 05:15 70 18 130/68 99 12/29/17 05:00 69 46 H 130/68 100 12/29/17 04:45 71 16 130/68 99 12/29/17 04:30 67 8 L 130/68 12/29/17 04:15 69 5 L 130/68 98 12/29/17 04:00 97.3 F L 69 11 L 130/68 100 12/29/17 03:45 66 10 L 130/68 100 12/29/17 03:30 69 10 L 130/68 100 12/29/17 03:15 70 14 130/68 100 12/29/17 03:00 69 38 H 130/68 100 12/29/17 02:45 66 10 L 130/68 99 12/29/17 02:30 69 9 L 130/68 100 12/29/17 02:15 69 23 130/68 100 12/29/17 02:00 70 9 L 130/68 100 18 01:45 84 10 L 130/68 100 18 01:30 81 14 130/68 99 18 01:15 95 10 L 130/68 98 12/29/17 01:00 105 H 12 87/50 98 12/29/17 00:45 93 18 87/50 98 12/29/17 00:30 80 101 H 87/50 99 12/29/17 00:15 80 23 87/50 99 12/29/17 00:00 97.0 F L 70 12 87/50 99 18 23:45 80 9 L 87/50 99 12/28/17 23:30 85 9 L 87/50 98 12/28/17 23:15 110 H 10 L 87/50 98 12/28/17 23:00 91 15 87/50 97 12/28/17 22:45 86 13 87/50 97 12/28/17 22:30 86 23 87/50 98 12/28/17 22:15 70 12 87/50 99 12/28/17 22:00 75 12 99 12/28/17 21:45 69 51 H 87/50 99 12/28/17 21:32 69 15 99 12/28/17 21:30 70 14 99 12/28/17 21:15 70 17 100 12/28/17 21:00 84 15 99 12/28/17 20:45 85 12 98 12/28/17 20:30 85 13 98 12/28/17 20:15 78 19 99 12/28/17 20:00 96.8 F L 69 18 99 18 19:45 75 18 100 12/28/17 19:30 96.8 F L 70 18 143/64 100 18 19:26 70 18 19:15 70 18 100 12/28/17 19:12 96.8 F L 69 18 151/68 100 14/18 19:09 70 18 19:02 96.8 F L 69 18 137/62 100 18 19:00 96.8 F L 69 18 100 18 18:58 95 F L 69 18 144/64 99 12/28/17 18:47 95 F L 69 145/65 99 12/28/17 18:45 69 18 100 12/28/17 18:37 95 F L 69 18 122/58 99 12/28/17 18:31 95 F L 69 18 129/59 100 12/28/17 18:30 69 18 100 12/28/17 18:15 69 12 99 12/28/17 18:13 95 F L 69 18 130/60 99 12/28/17 18:00 69 18 100 12/28/17 17:45 69 18 100 12/28/17 17:33 95 F L 69 18 131/60 99 12/28/17 17:30 69 18 100 12/28/17 17:20 69 12/28/17 17:15 70 18 100 12/28/17 17:03 95 F L 69 18 151/68 100 12/28/17 17:00 69 18 100 12/28/17 16:59 69 12/28/17 16:53 95 F L 69 18 146/63 100 12/28/17 16:51 95 F L 69 18 145/62 100 12/28/17 16:45 69 18 100 12/28/17 16:30 69 5 L 98 12/28/17 16:15 70 24 12/28/17 16:00 93.2 F L 69 12 97 12/28/17 15:57 70 17 12/28/17 15:39 100 Intake and Output 12/28/17 12/29/17 12/29/17 22:59 06:59 14:59 Intake Total 1439.174 5881.635 759.478 Output Total 1625 780 780 Balance -61.300 329.635 -20.522 Intake: IV 523 552 305 CO/CI 110 80 10 Lactated Ringers 1,000 ml 350 400 250 @ 50 mls/hr IV .Q20H [facility] Rx#:[id number] Pressure Bags 63 72 45 Intake, IV Titration 4.700 557.635 144.478 Amount ACETAMINOPHEN IV (For NPO 200 ) 1,000 mg In Empty Bag 1 bag @ 400 mls/hr IVPB Q6HR [facility] Rx#:[id number] Albumin Human 5% 250 ml 250 In Empty Bag 1 bag @ 250 mls/hr IVPB Q1HR PRN Rx#: [id number] Insulin Regular 100 unit 4.700 8.841 5.65 In Sodium Chloride 0.9% 100 ml @ Per Protocol IV .Q0M [facility] Rx#:[id number] Nitroglycerin-D5w Pmx 50 20.675 mg In Dextrose/Water 1 250ml.bag @ 5 MCG/MIN 1.5 mls/hr IV .Q24H [facility] Rx#: [id number] Norepinephrine 16 mg In 1.822 Sodium Chloride 0.9% 250 ml @ Titrate IV .Q0M [facility] Rx#:[id number] Norepinephrine 4 mg In 97.50 56.438 Sodium Chloride 0.9% 250 ml @ Titrate IV .Q0M [facility] Rx#:[id number] Propofol 1,000 mg In 1.294 59.893 Empty Bag 1 bag @ Titrate IV .Q0M [facility] Rx#: [id number] Blood Product 1036 0 310 Ffp 24 Cp2d Unit 206 [id number] Ffp 24 Cp2d Unit 210 [id number] Rc As-1 Unit 310 [id number] Rc As-3 Unit 0 310 [id number] Rc Pheresis 2 As3 Unit 310 [id number] Output: Chest Tube Drainage 1080 485 400 Left Pleural 490 240 320 Mediastinal 590 245 80 Drainage 60 40 Left Calf 60 40 Urine 485 255 380 Other: Voiding Method Indwelling Catheter Indwelling Catheter Weight 74.3 kg 74.3 kg ABP, PAP, CO, CI - Last 8 Hours Arterial Blood Pressure 112/47 Arterial Blood Pressure 137/56 Arterial Blood Pressure 134/52 Arterial Blood Pressure 158/55 Arterial Blood Pressure 142/51 Arterial Blood Pressure 137/52 Arterial Blood Pressure 128/51 Arterial Blood Pressure 115/45 Arterial Blood Pressure 104/44 Arterial Blood Pressure 123/47 Arterial Blood Pressure 134/54 Arterial Blood Pressure 119/50 Arterial Blood Pressure 127/49 Arterial Blood Pressure 107/36 Arterial Blood Pressure 100/45 Arterial Blood Pressure 116/47 Arterial Blood Pressure 96/39 Arterial Blood Pressure 121/52 Arterial Blood Pressure 138/59 Arterial Blood Pressure 103/50 Arterial Blood Pressure 115/56 Arterial Blood Pressure 102/49 Arterial Blood Pressure 122/49 Arterial Blood Pressure 104/47 Arterial Blood Pressure 119/52 Pulmonary Artery Pressure 31/15 Pulmonary Artery Pressure 38/20 Pulmonary Artery Pressure 26/13 Pulmonary Artery Pressure 26/15 Pulmonary Artery Pressure 28/14 Pulmonary Artery Pressure 27/15 Pulmonary Artery Pressure 27/16 Pulmonary Artery Pressure 27/14 Pulmonary Artery Pressure 29/15 Pulmonary Artery Pressure 30/16 Pulmonary Artery Pressure 30/17 Pulmonary Artery Pressure 29/16 Pulmonary Artery Pressure 30/17 Pulmonary Artery Pressure 31/14 Pulmonary Artery Pressure 33/16 Pulmonary Artery Pressure 33/19 Pulmonary Artery Pressure 31/18 Pulmonary Artery Pressure 34/21 Pulmonary Artery Pressure 38/24 Pulmonary Artery Pressure 36/23 Pulmonary Artery Pressure 35/23 Pulmonary Artery Pressure 32/18 Pulmonary Artery Pressure 35/23 Pulmonary Artery Pressure 35/21 Pulmonary Artery Pressure 35/22 Cardiac Output 3.2 Cardiac Output 3.2 Cardiac Output 3.2 Cardiac Output 3.4 Cardiac Output 3.4 Cardiac Output 3.4 Cardiac Output 3.4 Cardiac Output 3.1 Cardiac Output 3.1 Cardiac Output 3.1 Cardiac Output 3.1 Cardiac Output 3.1 Cardiac Output 3.1 Cardiac Output 3.1 Cardiac Output 3.1 Cardiac Output 3.1 Cardiac Output 3.1 Cardiac Output 3.1 Cardiac Output 3.2 Cardiac Output 3.2 Cardiac Output 3.2 Cardiac Output 3.2 Cardiac Output 3.1 Cardiac Output 3.2 Cardiac Output 3.2 Cardiac Index 1.9 Cardiac Index 2.0 Cardiac Index 1.9 - Constitutional General appearance: no acute distress - EENT ENT: other (patient currently has OGT and ET in place.) Ears: bilateral: normal - Neck Neck: no lymphadenopathy Carotids: bilateral: upstroke delayed - Respiratory Respiratory: bilateral: diminished, rales, rhonchi, prolonged expiration, negative: dullness, wheezing, other (chest tubes in place.) - Cardiovascular Rhythm: regular Heart sounds: normal: S1, S2 Abnormal Heart Sounds: systolic murmur, rub, S3 Gallop - Gastrointestinal General gastrointestinal: normal bowel sounds, soft, no splenomegaly, no tenderness, no umbilical hernia, no ventral hernia - Integumentary Integumentary: normal, normal turgor - Psychiatric Psychiatric: no A&O x's 3, no appropriate affect, no intact judgment & insight ( patient is currently sedated on the ventilator.) Results CBC & Chem 7: 12/30/17 03:30 12/30/17 03:30 Labs: Abnormal Lab Results - Last 24 Hours (Table) 12/22/17 12/28/17 12/28/17 Range/Units 08:56 10:18 13:12 RBC (3.80-5.40) m/uL Hgb (11.4-16.0) gm/dL Hct (34.0-46.0) % RDW (11.5-15.5) % Plt Count (150-450) k/uL Lymphocytes # (1.0-4.8) k/uL PT (9.0-12.0) sec INR (<1.2) APTT (22.0-30.0) sec ABG pH 7.47 H (7.35-7.45) ABG pCO2 (35-45) mmHg ABG pO2 361 H 366 H (83-108) mmHg ABG HCO3 26 H (21-25) mmol/L ABG Total CO2 28 H 26 H (19-24) mmol/L ABG O2 Saturation 100.0 H 100.0 H (94-97) % ABG Hematocrit 31 L 20 L* (34.0-46.0) % ABG Sodium 133 L 127 L (135-146) mmol/L ABG Potassium 4.8 H (3.4-4.5) mmol/L ABG Ionized Calcium 4.1 L (4.5-5.3) mg/dL ABG Glucose 107 H 195 H (75-99) mg/dL ABG Lactic Acid (0.5-1.6) mmol/L Hemoglobin 10.2 L 6.7 L* (11.4-16.0) gm/dL Sodium (137-145) mmol/L Creatinine (0.52-1.04) mg/dL Glucose (74-99) mg/dL POC Glucose (mg/dL) (75-99) mg/dL Calcium (8.4-10.2) mg/dL Ionized Calcium Brittany (4.5-5.3) mg/dL Magnesium (1.6-2.3) mg/dL Total Bilirubin (0.2-1.3) mg/dL AST (14-36) U/L Alkaline Phosphatase (38-126) U/L Total Protein (6.3-8.2) g/dL Albumin (3.5-5.0) g/dL Arterial Blood Potassium 4.8 H (3.4-4.5) mmol/L Arterial Blood Glucose 107 H 195 H (75-99) mg/dL Crossmatch See Detail 12/28/17 12/28/17 12/28/17 Range/Units 13:41 14:11 14:47 RBC (3.80-5.40) m/uL Hgb (11.4-16.0) gm/dL Hct (34.0-46.0) % RDW (11.5-15.5) % Plt Count (150-450) k/uL Lymphocytes # (1.0-4.8) k/uL PT (9.0-12.0) sec INR (<1.2) APTT (22.0-30.0) sec ABG pH 7.50 H (7.35-7.45) ABG pCO2 33 L (35-45) mmHg ABG pO2 360 H >420 H 226 H (83-108) mmHg ABG HCO3 26 H (21-25) mmol/L ABG Total CO2 27 H 26 H (19-24) mmol/L ABG O2 Saturation 100.0 H 100.0 H 99.8 H (94-97) % ABG Hematocrit 20 L* 20 L* 19 L* (34.0-46.0) % ABG Sodium 127 L 130 L 132 L (135-146) mmol/L ABG Potassium 4.8 H (3.4-4.5) mmol/L ABG Ionized Calcium 4.1 L 4.1 L (4.5-5.3) mg/dL ABG Glucose 226 H 183 H 135 H (75-99) mg/dL ABG Lactic Acid 2.1 H (0.5-1.6) mmol/L Hemoglobin 6.5 L* 6.4 L* 6.0 L* (11.4-16.0) gm/dL Sodium (137-145) mmol/L Creatinine (0.52-1.04) mg/dL Glucose (74-99) mg/dL POC Glucose (mg/dL) (75-99) mg/dL Calcium (8.4-10.2) mg/dL Ionized Calcium Brittany (4.5-5.3) mg/dL Magnesium (1.6-2.3) mg/dL Total Bilirubin (0.2-1.3) mg/dL AST (14-36) U/L Alkaline Phosphatase (38-126) U/L Total Protein (6.3-8.2) g/dL Albumin (3.5-5.0) g/dL Arterial Blood Potassium 4.8 H (3.4-4.5) mmol/L Arterial Blood Glucose 226 H 183 H 135 H (75-99) mg/dL Crossmatch 12/28/17 12/28/17 12/28/17 Range/Units 15:58 15:58 15:58 RBC 1.83 L (3.80-5.40) m/uL Hgb 5.8 L* D (11.4-16.0) gm/dL Hct 17.4 L* (34.0-46.0) % RDW (11.5-15.5) % Plt Count 82 L D (150-450) k/uL Lymphocytes # 0.9 L (1.0-4.8) k/uL PT 22.9 H (9.0-12.0) sec INR 2.5 H (<1.2) APTT 61.0 H (22.0-30.0) sec ABG pH (7.35-7.45) ABG pCO2 (35-45) mmHg ABG pO2 (83-108) mmHg ABG HCO3 (21-25) mmol/L ABG Total CO2 (19-24) mmol/L ABG O2 Saturation (94-97) % ABG Hematocrit (34.0-46.0) % ABG Sodium (135-146) mmol/L ABG Potassium (3.4-4.5) mmol/L ABG Ionized Calcium (4.5-5.3) mg/dL ABG Glucose (75-99) mg/dL ABG Lactic Acid (0.5-1.6) mmol/L Hemoglobin (11.4-16.0) gm/dL Sodium 136 L (137-145) mmol/L Creatinine 0.44 L (0.52-1.04) mg/dL Glucose 102 H (74-99) mg/dL POC Glucose (mg/dL) (75-99) mg/dL Calcium 7.5 L (8.4-10.2) mg/dL Ionized Calcium Brittany 4.3 L (4.5-5.3) mg/dL Magnesium 2.5 H (1.6-2.3) mg/dL Total Bilirubin (0.2-1.3) mg/dL AST (14-36) U/L Alkaline Phosphatase <20 L (38-126) U/L Total Protein 4.6 L (6.3-8.2) g/dL Albumin 3.2 L (3.5-5.0) g/dL Arterial Blood Potassium (3.4-4.5) mmol/L Arterial Blood Glucose (75-99) mg/dL Crossmatch 12/28/17 12/28/17 12/28/17 Range/Units 15:59 16:29 17:08 RBC (3.80-5.40) m/uL Hgb (11.4-16.0) gm/dL Hct (34.0-46.0) % RDW (11.5-15.5) % Plt Count (150-450) k/uL Lymphocytes # (1.0-4.8) k/uL PT (9.0-12.0) sec INR (<1.2) APTT (22.0-30.0) sec ABG pH 7.32 L (7.35-7.45) ABG pCO2 47 H (35-45) mmHg ABG pO2 >400 H (83-108) mmHg ABG HCO3 (21-25) mmol/L ABG Total CO2 25 H (19-24) mmol/L ABG O2 Saturation 100.0 H (94-97) % ABG Hematocrit (34.0-46.0) % ABG Sodium (135-146) mmol/L ABG Potassium (3.4-4.5) mmol/L ABG Ionized Calcium (4.5-5.3) mg/dL ABG Glucose (75-99) mg/dL ABG Lactic Acid (0.5-1.6) mmol/L Hemoglobin (11.4-16.0) gm/dL Sodium (137-145) mmol/L Creatinine (0.52-1.04) mg/dL Glucose (74-99) mg/dL POC Glucose (mg/dL) 124 H 102 H (75-99) mg/dL Calcium (8.4-10.2) mg/dL Ionized Calcium Brittany (4.5-5.3) mg/dL Magnesium (1.6-2.3) mg/dL Total Bilirubin (0.2-1.3) mg/dL AST (14-36) U/L Alkaline Phosphatase (38-126) U/L Total Protein (6.3-8.2) g/dL Albumin (3.5-5.0) g/dL Arterial Blood Potassium (3.4-4.5) mmol/L Arterial Blood Glucose (75-99) mg/dL Crossmatch 12/28/17 12/28/17 12/28/17 Range/Units 18:10 19:05 19:58 RBC (3.80-5.40) m/uL Hgb (11.4-16.0) gm/dL Hct (34.0-46.0) % RDW (11.5-15.5) % Plt Count (150-450) k/uL Lymphocytes # (1.0-4.8) k/uL PT (9.0-12.0) sec INR (<1.2) APTT (22.0-30.0) sec ABG pH (7.35-7.45) ABG pCO2 (35-45) mmHg ABG pO2 (83-108) mmHg ABG HCO3 (21-25) mmol/L ABG Total CO2 (19-24) mmol/L ABG O2 Saturation (94-97) % ABG Hematocrit (34.0-46.0) % ABG Sodium (135-146) mmol/L ABG Potassium (3.4-4.5) mmol/L ABG Ionized Calcium (4.5-5.3) mg/dL ABG Glucose (75-99) mg/dL ABG Lactic Acid (0.5-1.6) mmol/L Hemoglobin (11.4-16.0) gm/dL Sodium (137-145) mmol/L Creatinine (0.52-1.04) mg/dL Glucose (74-99) mg/dL POC Glucose (mg/dL) 131 H 148 H 155 H (75-99) mg/dL Calcium (8.4-10.2) mg/dL Ionized Calcium Brittany (4.5-5.3) mg/dL Magnesium (1.6-2.3) mg/dL Total Bilirubin (0.2-1.3) mg/dL AST (14-36) U/L Alkaline Phosphatase (38-126) U/L Total Protein (6.3-8.2) g/dL Albumin (3.5-5.0) g/dL Arterial Blood Potassium (3.4-4.5) mmol/L Arterial Blood Glucose (75-99) mg/dL Crossmatch 12/28/17 12/28/17 12/28/17 Range/Units 20:47 20:47 20:47 RBC 1.99 L (3.80-5.40) m/uL Hgb 6.4 L* (11.4-16.0) gm/dL Hct 18.3 L* (34.0-46.0) % RDW (11.5-15.5) % Plt Count 98 L (150-450) k/uL Lymphocytes # 0.5 L (1.0-4.8) k/uL PT 16.3 H (9.0-12.0) sec INR 1.8 H (<1.2) APTT (22.0-30.0) sec ABG pH (7.35-7.45) ABG pCO2 (35-45) mmHg ABG pO2 (83-108) mmHg ABG HCO3 (21-25) mmol/L ABG Total CO2 (19-24) mmol/L ABG O2 Saturation (94-97) % ABG Hematocrit (34.0-46.0) % ABG Sodium (135-146) mmol/L ABG Potassium (3.4-4.5) mmol/L ABG Ionized Calcium (4.5-5.3) mg/dL ABG Glucose (75-99) mg/dL ABG Lactic Acid (0.5-1.6) mmol/L Hemoglobin (11.4-16.0) gm/dL Sodium 135 L (137-145) mmol/L Creatinine 0.46 L (0.52-1.04) mg/dL Glucose 128 H (74-99) mg/dL POC Glucose (mg/dL) (75-99) mg/dL Calcium 7.7 L (8.4-10.2) mg/dL Ionized Calcium Brittany (4.5-5.3) mg/dL Magnesium (1.6-2.3) mg/dL Total Bilirubin 1.8 H (0.2-1.3) mg/dL AST (14-36) U/L Alkaline Phosphatase 20 L (38-126) U/L Total Protein 4.7 L (6.3-8.2) g/dL Albumin 3.2 L (3.5-5.0) g/dL Arterial Blood Potassium (3.4-4.5) mmol/L Arterial Blood Glucose (75-99) mg/dL Crossmatch 12/28/17 12/28/17 12/28/17 Range/Units 20:53 22:09 23:00 RBC (3.80-5.40) m/uL Hgb (11.4-16.0) gm/dL Hct (34.0-46.0) % RDW (11.5-15.5) % Plt Count (150-450) k/uL Lymphocytes # (1.0-4.8) k/uL PT (9.0-12.0) sec INR (<1.2) APTT (22.0-30.0) sec ABG pH 7.21 L (7.35-7.45) ABG pCO2 64 H (35-45) mmHg ABG pO2 124 H (83-108) mmHg ABG HCO3 26 H (21-25) mmol/L ABG Total CO2 28 H (19-24) mmol/L ABG O2 Saturation 99.1 H (94-97) % ABG Hematocrit (34.0-46.0) % ABG Sodium (135-146) mmol/L ABG Potassium (3.4-4.5) mmol/L ABG Ionized Calcium (4.5-5.3) mg/dL ABG Glucose (75-99) mg/dL ABG Lactic Acid (0.5-1.6) mmol/L Hemoglobin (11.4-16.0) gm/dL Sodium (137-145) mmol/L Creatinine (0.52-1.04) mg/dL Glucose (74-99) mg/dL POC Glucose (mg/dL) 148 H 122 H (75-99) mg/dL Calcium (8.4-10.2) mg/dL Ionized Calcium Brittany (4.5-5.3) mg/dL Magnesium (1.6-2.3) mg/dL Total Bilirubin (0.2-1.3) mg/dL AST (14-36) U/L Alkaline Phosphatase (38-126) U/L Total Protein (6.3-8.2) g/dL Albumin (3.5-5.0) g/dL Arterial Blood Potassium (3.4-4.5) mmol/L Arterial Blood Glucose (75-99) mg/dL Crossmatch 12/28/17 12/29/17 12/29/17 Range/Units 23:14 00:13 01:08 RBC (3.80-5.40) m/uL Hgb (11.4-16.0) gm/dL Hct (34.0-46.0) % RDW (11.5-15.5) % Plt Count (150-450) k/uL Lymphocytes # (1.0-4.8) k/uL PT (9.0-12.0) sec INR (<1.2) APTT (22.0-30.0) sec ABG pH 7.18 L* (7.35-7.45) ABG pCO2 66 H (35-45) mmHg ABG pO2 (83-108) mmHg ABG HCO3 (21-25) mmol/L ABG Total CO2 27 H (19-24) mmol/L ABG O2 Saturation 98.3 H (94-97) % ABG Hematocrit (34.0-46.0) % ABG Sodium (135-146) mmol/L ABG Potassium (3.4-4.5) mmol/L ABG Ionized Calcium (4.5-5.3) mg/dL ABG Glucose (75-99) mg/dL ABG Lactic Acid (0.5-1.6) mmol/L Hemoglobin (11.4-16.0) gm/dL Sodium (137-145) mmol/L Creatinine (0.52-1.04) mg/dL Glucose (74-99) mg/dL POC Glucose (mg/dL) 112 H 150 H (75-99) mg/dL Calcium (8.4-10.2) mg/dL Ionized Calcium Brittany (4.5-5.3) mg/dL Magnesium (1.6-2.3) mg/dL Total Bilirubin (0.2-1.3) mg/dL AST (14-36) U/L Alkaline Phosphatase (38-126) U/L Total Protein (6.3-8.2) g/dL Albumin (3.5-5.0) g/dL Arterial Blood Potassium (3.4-4.5) mmol/L Arterial Blood Glucose (75-99) mg/dL Crossmatch 12/29/17 12/29/17 12/29/17 Range/Units 01:10 01:58 03:11 RBC (3.80-5.40) m/uL Hgb (11.4-16.0) gm/dL Hct (34.0-46.0) % RDW (11.5-15.5) % Plt Count (150-450) k/uL Lymphocytes # (1.0-4.8) k/uL PT (9.0-12.0) sec INR (<1.2) APTT (22.0-30.0) sec ABG pH (7.35-7.45) ABG pCO2 (35-45) mmHg ABG pO2 (83-108) mmHg ABG HCO3 (21-25) mmol/L ABG Total CO2 (19-24) mmol/L ABG O2 Saturation (94-97) % ABG Hematocrit (34.0-46.0) % ABG Sodium (135-146) mmol/L ABG Potassium (3.4-4.5) mmol/L ABG Ionized Calcium (4.5-5.3) mg/dL ABG Glucose (75-99) mg/dL ABG Lactic Acid (0.5-1.6) mmol/L Hemoglobin (11.4-16.0) gm/dL Sodium (137-145) mmol/L Creatinine (0.52-1.04) mg/dL Glucose (74-99) mg/dL POC Glucose (mg/dL) 143 H 123 H 111 H (75-99) mg/dL Calcium (8.4-10.2) mg/dL Ionized Calcium Brittany (4.5-5.3) mg/dL Magnesium (1.6-2.3) mg/dL Total Bilirubin (0.2-1.3) mg/dL AST (14-36) U/L Alkaline Phosphatase (38-126) U/L Total Protein (6.3-8.2) g/dL Albumin (3.5-5.0) g/dL Arterial Blood Potassium (3.4-4.5) mmol/L Arterial Blood Glucose (75-99) mg/dL Crossmatch 12/29/17 12/29/17 12/29/17 Range/Units 04:35 04:37 04:40 RBC 1.67 L (3.80-5.40) m/uL Hgb 5.2 L* (11.4-16.0) gm/dL Hct 15.5 L* (34.0-46.0) % RDW 15.9 H (11.5-15.5) % Plt Count 106 L (150-450) k/uL Lymphocytes # 0.5 L (1.0-4.8) k/uL PT (9.0-12.0) sec INR (<1.2) APTT (22.0-30.0) sec ABG pH (7.35-7.45) ABG pCO2 (35-45) mmHg ABG pO2 195 H (83-108) mmHg ABG HCO3 (21-25) mmol/L ABG Total CO2 26 H (19-24) mmol/L ABG O2 Saturation 99.9 H (94-97) % ABG Hematocrit (34.0-46.0) % ABG Sodium (135-146) mmol/L ABG Potassium (3.4-4.5) mmol/L ABG Ionized Calcium (4.5-5.3) mg/dL ABG Glucose (75-99) mg/dL ABG Lactic Acid (0.5-1.6) mmol/L Hemoglobin (11.4-16.0) gm/dL Sodium (137-145) mmol/L Creatinine (0.52-1.04) mg/dL Glucose (74-99) mg/dL POC Glucose (mg/dL) 112 H (75-99) mg/dL Calcium (8.4-10.2) mg/dL Ionized Calcium Brittany (4.5-5.3) mg/dL Magnesium (1.6-2.3) mg/dL Total Bilirubin (0.2-1.3) mg/dL AST (14-36) U/L Alkaline Phosphatase (38-126) U/L Total Protein (6.3-8.2) g/dL Albumin (3.5-5.0) g/dL Arterial Blood Potassium (3.4-4.5) mmol/L Arterial Blood Glucose (75-99) mg/dL Crossmatch 12/29/17 12/29/17 12/29/17 Range/Units 04:40 04:40 05:16 RBC (3.80-5.40) m/uL Hgb (11.4-16.0) gm/dL Hct (34.0-46.0) % RDW (11.5-15.5) % Plt Count (150-450) k/uL Lymphocytes # (1.0-4.8) k/uL PT 14.9 H (9.0-12.0) sec INR 1.6 H (<1.2) APTT 33.5 H (22.0-30.0) sec ABG pH (7.35-7.45) ABG pCO2 (35-45) mmHg ABG pO2 (83-108) mmHg ABG HCO3 (21-25) mmol/L ABG Total CO2 (19-24) mmol/L ABG O2 Saturation (94-97) % ABG Hematocrit (34.0-46.0) % ABG Sodium (135-146) mmol/L ABG Potassium (3.4-4.5) mmol/L ABG Ionized Calcium (4.5-5.3) mg/dL ABG Glucose (75-99) mg/dL ABG Lactic Acid (0.5-1.6) mmol/L Hemoglobin (11.4-16.0) gm/dL Sodium (137-145) mmol/L Creatinine (0.52-1.04) mg/dL Glucose (74-99) mg/dL POC Glucose (mg/dL) 119 H (75-99) mg/dL Calcium 7.7 L (8.4-10.2) mg/dL Ionized Calcium Brittany (4.5-5.3) mg/dL Magnesium (1.6-2.3) mg/dL Total Bilirubin (0.2-1.3) mg/dL AST 37 H (14-36) U/L Alkaline Phosphatase 22 L (38-126) U/L Total Protein 4.6 L (6.3-8.2) g/dL Albumin 3.1 L (3.5-5.0) g/dL Arterial Blood Potassium (3.4-4.5) mmol/L Arterial Blood Glucose (75-99) mg/dL Crossmatch 1112/29/17 12/29/17 Range/Units 06:17 08:08 08:50 RBC (3.80-5.40) m/uL Hgb (11.4-16.0) gm/dL Hct (34.0-46.0) % RDW (11.5-15.5) % Plt Count (150-450) k/uL Lymphocytes # (1.0-4.8) k/uL PT (9.0-12.0) sec INR (<1.2) APTT (22.0-30.0) sec ABG pH (7.35-7.45) ABG pCO2 (35-45) mmHg ABG pO2 (83-108) mmHg ABG HCO3 (21-25) mmol/L ABG Total CO2 (19-24) mmol/L ABG O2 Saturation (94-97) % ABG Hematocrit (34.0-46.0) % ABG Sodium (135-146) mmol/L ABG Potassium (3.4-4.5) mmol/L ABG Ionized Calcium (4.5-5.3) mg/dL ABG Glucose (75-99) mg/dL ABG Lactic Acid (0.5-1.6) mmol/L Hemoglobin (11.4-16.0) gm/dL Sodium (137-145) mmol/L Creatinine (0.52-1.04) mg/dL Glucose (74-99) mg/dL POC Glucose (mg/dL) 129 H 131 H 130 H (75-99) mg/dL Calcium (8.4-10.2) mg/dL Ionized Calcium Brittany (4.5-5.3) mg/dL Magnesium (1.6-2.3) mg/dL Total Bilirubin (0.2-1.3) mg/dL AST (14-36) U/L Alkaline Phosphatase (38-126) U/L Total Protein (6.3-8.2) g/dL Albumin (3.5-5.0) g/dL Arterial Blood Potassium (3.4-4.5) mmol/L Arterial Blood Glucose (75-99) mg/dL Crossmatch 12/29/17 12/29/17 12/29/17 Range/Units 09:59 10:02 10:59 RBC 2.25 L (3.80-5.40) m/uL Hgb 7.2 L D (11.4-16.0) gm/dL Hct 20.9 L (34.0-46.0) % RDW 15.9 H (11.5-15.5) % Plt Count 105 L (150-450) k/uL Lymphocytes # 0.7 L (1.0-4.8) k/uL PT (9.0-12.0) sec INR (<1.2) APTT (22.0-30.0) sec ABG pH 7.30 L (7.35-7.45) ABG pCO2 51 H (35-45) mmHg ABG pO2 (83-108) mmHg ABG HCO3 (21-25) mmol/L ABG Total CO2 27 H (19-24) mmol/L ABG O2 Saturation 98.5 H (94-97) % ABG Hematocrit (34.0-46.0) % ABG Sodium (135-146) mmol/L ABG Potassium (3.4-4.5) mmol/L ABG Ionized Calcium (4.5-5.3) mg/dL ABG Glucose (75-99) mg/dL ABG Lactic Acid (0.5-1.6) mmol/L Hemoglobin (11.4-16.0) gm/dL Sodium (137-145) mmol/L Creatinine (0.52-1.04) mg/dL Glucose (74-99) mg/dL POC Glucose (mg/dL) 117 H (75-99) mg/dL Calcium (8.4-10.2) mg/dL Ionized Calcium Brittany (4.5-5.3) mg/dL Magnesium (1.6-2.3) mg/dL Total Bilirubin (0.2-1.3) mg/dL AST (14-36) U/L Alkaline Phosphatase (38-126) U/L Total Protein (6.3-8.2) g/dL Albumin (3.5-5.0) g/dL Arterial Blood Potassium (3.4-4.5) mmol/L Arterial Blood Glucose (75-99) mg/dL Crossmatch 12/29/17 Range/Units 11:03 RBC (3.80-5.40) m/uL Hgb (11.4-16.0) gm/dL Hct (34.0-46.0) % RDW (11.5-15.5) % Plt Count (150-450) k/uL Lymphocytes # (1.0-4.8) k/uL PT (9.0-12.0) sec INR (<1.2) APTT (22.0-30.0) sec ABG pH (7.35-7.45) ABG pCO2 (35-45) mmHg ABG pO2 (83-108) mmHg ABG HCO3 (21-25) mmol/L ABG Total CO2 (19-24) mmol/L ABG O2 Saturation (94-97) % ABG Hematocrit (34.0-46.0) % ABG Sodium (135-146) mmol/L ABG Potassium (3.4-4.5) mmol/L ABG Ionized Calcium (4.5-5.3) mg/dL ABG Glucose (75-99) mg/dL ABG Lactic Acid (0.5-1.6) mmol/L Hemoglobin (11.4-16.0) gm/dL Sodium (137-145) mmol/L Creatinine (0.52-1.04) mg/dL Glucose (74-99) mg/dL POC Glucose (mg/dL) 107 H (75-99) mg/dL Calcium (8.4-10.2) mg/dL Ionized Calcium Brittany (4.5-5.3) mg/dL Magnesium (1.6-2.3) mg/dL Total Bilirubin (0.2-1.3) mg/dL AST (14-36) U/L Alkaline Phosphatase (38-126) U/L Total Protein (6.3-8.2) g/dL Albumin (3.5-5.0) g/dL Arterial Blood Potassium (3.4-4.5) mmol/L Arterial Blood Glucose (75-99) mg/dL Crossmatch Assessment and Plan Assessment: Assessment and plan: 1. Post operative day #1 status post CABG 3 with LOPES to LAD, SVG to OM, SVG to PDA. Patient is currently on assist mode ventilation with tidal volume of 400 FiO2 40% PEEP of 5, we will continue with weaning parameters, continue aggressive pulmonary toileting with nebulized treatment, patient did receive a dose of Lasix earlier today, and she will be attempted again for a weaning process. 2. CAD post CABG. continue aspirin 81 mg once every day, Lipitor 80 mg once every day, Coreg 3.125 mg orally twice every day. 3. Hypertension and hypertensive cardiovascular disease. Resume patient losartan 25 mg orally once every day when her blood pressure allows, continue Lopressor 12.5 mg orally twice every day. 4. Hyperlipidemia. Continue Lipitor 40 mg once every day. 5. Moderate bilateral vascular disease. Continue aspirin and Lipitor for secondary prevention. 6. Mild COPD. Continue aggressive pulmonary toileting with nebulized treatment. 7. 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 Continue with current pain management. 8. Hypothyroidism. Continue patient on Synthroid 25 g orally once every day. 9. Depressive disorder. Continue Wellbutrin 75 mg orally once every day. 10. Thank you for the consult we'll follow with you.
[2017-12-29] MEDS ORDERED: CALCIUM CHLORIDE 1,000 MG in SODIUM CHLORIDE 0.9% 100 ML IVPB STA (11:36)
[2017-12-29] MEDS: ASPIRIN 81 MG PO SCH (11:42)
[2017-12-29] MEDS: CLOPIDOGREL 75 MG TAB PO SCH (11:42)
[2017-12-29] MEDS ORDERED: CALCIUM GLUCONATE 1,000 MG in SODIUM CHLORIDE 0.9% 100 ML IVPB ONE (12:00)
[2017-12-29] MEDS ORDERED: POTASSIUM BICARBONATE/CIT AC 20 MEQ TABLET.EFF NG-TUBE SCH (12:00)
[2017-12-29] MEDS ORDERED: methylPREDNISolone SOD SUCCI 125 MG/2 ML VIAL IV STA (12:11)
[2017-12-29] MEDS: LACTATED RINGERS 1,000 ML IV SCH (12:31)
[2017-12-29 12:41] LABS: Glucose,Whole Blood 126 mg/dL (75-99)
[2017-12-29 12:49] LABS: ABG Base Excess -1.5 mmol/L; ABG HCO3 24 mmol/L (21-25); ABG Oxygen Saturation 99.3 % (94-97); ABG PCO2 44 mmHg (35-45); ABG PH 7.35 (7.35-7.45); ABG PO2 115 mmHg (83-108); ABG TCO2 25 mmol/L (19-24)
[2017-12-29 13:20] LABS: Glucose,Whole Blood 126 mg/dL (75-99)
[2017-12-29 13:59] LABS: ABG HCO3 23 mmol/L (21-25); ABG Oxygen Saturation 93.3 % (94-97); ABG PCO2 42 mmHg (35-45); ABG PH 7.34 (7.35-7.45); ABG PO2 65 mmHg (83-108); ABG TCO2 24 mmol/L (19-24)
[2017-12-29 14:19] LABS: Glucose,Whole Blood 126 mg/dL (75-99)
[2017-12-29] MEDS ORDERED: BISACODYL 10 MG SUPP RECTAL PRN (14:52)
[2017-12-29] MEDS ORDERED: MAGNESIUM HYDROXIDE 2,400 MG/10 ML CUP PO PRN (14:52)
--- NOTE | 2017-12-29 14:54 | P.PN ---
Subjective Progress Note Date: 12/29/17 This is a 77-year-old female patient, known history of COPD with a preop FEV1 of 70% of predicted, and addition to coronary artery disease, peripheral vascular disease and hypertension, who was experiencing symptoms of exertional dyspnea and angina. She underwent stress test and she was found to have reversible ischemia and based on that the patient underwent a cardiac catheterization and she was found to have extreme calcified right and left coronary arteries, severe triple-vessel disease, severe disease involving the proximal RCA, severe disease involving the ostial circumflex and severe disease involving the ostial left anterior descending coronary artery. Based on this, the patient was referred for bypass surgery and the patient underwent three- vessel bypass with LOPES to LAD. Preop echocardiogram showed a preserved LV function with an ejection fraction of 55-60%. The patient has mild concentric left ventricular hypertrophy. I'm seeing this patient immediately after she arrived to the intensive care unit. She is sedated, comfortable likely distress. She is on a mechanical ventilator. She is an assist-control mode of ventilation, at a rate of 12, tidal volume of 400 with an FiO2 of 100% and PEEP of 5. Chest x-ray showed adequate expansion of both lungs. The patient is to mediastinal and 1 pleural chest tube on the left. Output is minimal at this point. There is no evidence of any air leak. There is no evidence of pneumothorax. The the blood gas showed a pH of 7.31 with a pCO2 of 46 and FiO2 is more than 400. Based on these results, increased respiratory rate up to 18. And I also drop the FiO2 down to 50%. She is producing adequate amount of urine output. She arrived to the ICU from the operating room with 12 mics of levo fed and currently she is off pressors. Cardiac output is at 2.6 with an index of 4.4. Pulmonary artery pressures are nonelevated. On 12/29/2017, the patient is postop day #1. The patient was kept intubated and mechanically ventilated overnight as the patient was having issues with increased output from the chest tubes, anemia, low cardiac output and difficulties with her weaning parameters overnight, the patient was given a total of 2 units of packed RBC 4 hemoglobin of 5.2. Subsequent hemoglobin came up to 6.4 and following that was up down to 5.8. The patient was given an additional 2 units of packed RBC this morning. Doppler from the chest tubes have decline. Overall output has been 800 mL of the mediastinal chest tubes and at times cc from the pleural chest tube as the patient arrived from the operating room. The patient was also given fresh frozen plasma total of 2 units. The patient was kept sedated with Diprivan and she remained calm and comfortable. There were 2 attempts to wean this patient a mechanical ventilator overnight. Her weaning parameters of borderline. Subsequent blood gases showed respiratory acidosis and I did not feel comfortable extubating this patient. Based on this, the patient was kept intubated on mechanical ventilator throughout the night. This morning, following transfusion with 2 units of packed RBC, the patient seemed to hemodynamically stable and she was doing okay. As such she was taken off the sedation and she was given a spelled his breathing trial with a pressure support of 5 and a PEEP of 5. His subsequent blood gases showed a mild component of respiratory acidosis with pCO2 of 50 and pH of 7.30. At that point, the patient was awake and she was following commands. She did not show any signs of respiratory distress. I decide to extubate this patient to a nasal cannula. Postextubation, the patient was followed up very closely. She was noted to bronchospastic and wheezy. Based on that, she was given IV Solu-Medrol. Following that she was placed on a BiPAP at a pressure of 14/5 cm of water with an FiO2 of 50%. The most recent blood gases showed a pH of 7.34 with a pCO2 of 42 and pO2 of 65 and this was done and FiO2 of 40%. The patient was somewhat restless and was getting agitated in bed. Based on that, I put her on Precedex and currently it is at 0.4 g per KG per hour. The chest x-ray from earlier this morning showed small better pleural effusion. There was cardiomegaly. [place] catheter was in place. Rest of the chest were all in place. There was some limited bibasilar consolidation. She is afebrile. She is hemodynamically stable and currently the cardiac index is above 2.. Most recent hemoglobin is at 7.2. She is afebrile. She is on no pressors at this point in time. Cardiac rhythm is sinus. Objective - Vital Signs Vital signs: Vital Signs Temp 98.1 F 12/29/17 12:30 Pulse 74 12/29/17 14:00 Resp 15 12/29/17 14:00 BP 140/71 12/29/17 13:30 Pulse Ox 92 L 12/29/17 14:00 Intake & Output 12/28/17 12/29/17 12/29/17 18:59 06:59 18:59 Intake Total 1100 1606.335 950.190 Output Total 2275 1405 1195 Balance -1175 201.335 -244.810 Weight 66.4 kg 74.3 kg 74.3 kg Intake: IV 270 838 482 CO/CI 60 130 10 Lactated Ringers 1,000 ml 150 600 400 @ 20 mls/hr IV .Q24H JENNIFER Rx#:[id number] Pressure Bags 27 108 72 Intake, IV Titration 562.335 158.190 Amount ACETAMINOPHEN IV (For NPO 200 ) 1,000 mg In Empty Bag 1 bag @ 400 mls/hr IVPB Q6HR JENNIFER Rx#:[id number] Albumin Human 5% 250 ml 250 In Empty Bag 1 bag @ 250 mls/hr IVPB Q1HR PRN Rx#: [id number] Dexmedetomidine/0.9% NaCl 11.145 (Pmx) 400 mcg In Empty Bag 1 bag @ Titrate IV . Q0M JENNIFER Rx#:[id number] Insulin Regular 100 unit 13.541 8.217 In Sodium Chloride 0.9% 100 ml @ Per Protocol IV .Q0M JENNIFER Rx#:[id number] Nitroglycerin-D5w Pmx 50 20.675 mg In Dextrose/Water 1 250ml.bag @ 5 MCG/MIN 1.5 mls/hr IV .Q24H JENNIFER Rx#: [id number] Norepinephrine 16 mg In 1.822 Sodium Chloride 0.9% 250 ml @ Titrate IV .Q0M JENNIFER Rx#:[id number] Norepinephrine 4 mg In 97.50 56.438 Sodium Chloride 0.9% 250 ml @ Titrate IV .Q0M JENNIFER Rx#:[id number] Propofol 1,000 mg In 1.294 59.893 Empty Bag 1 bag @ Titrate IV .Q0M JENNIFER Rx#: [id number] Blood Product 830 206 310 Ffp 24 Cp2d Unit 206 [id number] Ffp 24 Cp2d Unit 210 [id number] Rc As-1 Unit 310 [id number] Rc As-3 Unit 0 310 [id number] Pheresis 2 As3 Unit 310 [id number] Output: Chest Tube Drainage 760 805 570 Left Pleural 300 430 420 Mediastinal 460 375 150 Drainage 30 70 Left Calf 30 70 Urine 685 530 625 Estimated Blood Loss 800 Other: Voiding Method Indwelling Catheter Indwelling Catheter ABP, PAP, CO, CI - Last Documented Arterial Blood Pressure 152/56 Pulmonary Artery Pressure 35/16 Cardiac Output 3.2 Cardiac Index 1.9 - Exam Gen. appearance the patient is currently sedated with Precedex at 0.4 g per KG per minute. She is arousable. She is tolerating a full face BiPAP mask at a pressure of 14/5 cm of water with an FiO2 of 50%. Head exam was generally normal. There was no scleral icterus or corneal arcus. Mucous membranes were moist. Neck was supple and without jugular venous distension, thyromegaly, or carotid bruits. Carotids were easily palpable bilaterally. There was no adenopathy. The patient has a right IJ [place] catheter in place. No stridor. No neck masses. No hematoma. Lungs sounds are diminished bilaterally and the patient is prolongation of expiratory phase of breathing and scattered expiratory wheezes.lung his bilaterally. Sternum stable clean and intact. The patient is to mediastinal chest tubes and 1 left-sided pleural chest tube in place. Cardiac exam revealed the PMI to be normally situated and sized. The rhythm was regular and no extrasystoles were noted during several minutes of auscultation. The first and second heart sounds were normal and physiologic splitting of the second heart sound was noted. There were no murmurs, rubs, clicks, or gallops. Abdominal exam revealed normal bowel sounds. The abdomen was soft, non-tender, and without masses, organomegaly, or appreciable enlargement of the abdominal aorta. Examination of the extremities revealed adequate pulses. There is areas of skin bruising related to surgical intervention. There is also LIZABETH drain in the left lower extremity. Surgical wound sites are all dry clean and intact. neurologically, the patient follows commands and moves all 4 extremities. She was however getting restless and agitated at times and based on that. Control her agitation and restlessness by Precedex. There is an underlying component of metabolic encephalopathy or drug induced encephalopathy . Pupils are equal and reactive to light. - Labs CBC & Chem 7: 12/29/17 10:02 12/29/17 10:02 Labs: Abnormal Lab Results - Last 24 Hours (Table) 12/22/17 12/28/17 12/28/17 Range/Units 08:56 10:18 13:12 RBC (3.80-5.40) m/uL Hgb (11.4-16.0) gm/dL Hct (34.0-46.0) % RDW (11.5-15.5) % Plt Count (150-450) k/uL Lymphocytes # (1.0-4.8) k/uL PT (9.0-12.0) sec INR (<1.2) APTT (22.0-30.0) sec ABG pH 7.47 H (7.35-7.45) ABG pCO2 (35-45) mmHg ABG pO2 361 H 366 H (83-108) mmHg ABG HCO3 26 H (21-25) mmol/L ABG Total CO2 28 H 26 H (19-24) mmol/L ABG O2 Saturation 100.0 H 100.0 H (94-97) % ABG Hematocrit 31 L 20 L* (34.0-46.0) % ABG Sodium 133 L 127 L (135-146) mmol/L ABG Potassium 4.8 H (3.4-4.5) mmol/L ABG Ionized Calcium 4.1 L (4.5-5.3) mg/dL ABG Glucose 107 H 195 H (75-99) mg/dL ABG Lactic Acid (0.5-1.6) mmol/L Hemoglobin 10.2 L 6.7 L* (11.4-16.0) gm/dL Sodium (137-145) mmol/L Creatinine (0.52-1.04) mg/dL Glucose (74-99) mg/dL POC Glucose (mg/dL) (75-99) mg/dL Calcium (8.4-10.2) mg/dL Ionized Calcium Brittany (4.5-5.3) mg/dL Magnesium (1.6-2.3) mg/dL Total Bilirubin (0.2-1.3) mg/dL AST (14-36) U/L Alkaline Phosphatase (38-126) U/L Total Protein (6.3-8.2) g/dL Albumin (3.5-5.0) g/dL Arterial Blood Potassium 4.8 H (3.4-4.5) mmol/L Arterial Blood Glucose 107 H 195 H (75-99) mg/dL Crossmatch See Detail 12/28/17 12/28/17 12/28/17 Range/Units 13:41 14:11 14:47 RBC (3.80-5.40) m/uL Hgb (11.4-16.0) gm/dL Hct (34.0-46.0) % RDW (11.5-15.5) % Plt Count (150-450) k/uL Lymphocytes # (1.0-4.8) k/uL PT (9.0-12.0) sec INR (<1.2) APTT (22.0-30.0) sec ABG pH 7.50 H (7.35-7.45) ABG pCO2 33 L (35-45) mmHg ABG pO2 360 H >420 H 226 H (83-108) mmHg ABG HCO3 26 H (21-25) mmol/L ABG Total CO2 27 H 26 H (19-24) mmol/L ABG O2 Saturation 100.0 H 100.0 H 99.8 H (94-97) % ABG Hematocrit 20 L* 20 L* 19 L* (34.0-46.0) % ABG Sodium 127 L 130 L 132 L (135-146) mmol/L ABG Potassium 4.8 H (3.4-4.5) mmol/L ABG Ionized Calcium 4.1 L 4.1 L (4.5-5.3) mg/dL ABG Glucose 226 H 183 H 135 H (75-99) mg/dL ABG Lactic Acid 2.1 H (0.5-1.6) mmol/L Hemoglobin 6.5 L* 6.4 L* 6.0 L* (11.4-16.0) gm/dL Sodium (137-145) mmol/L Creatinine (0.52-1.04) mg/dL Glucose (74-99) mg/dL POC Glucose (mg/dL) (75-99) mg/dL Calcium (8.4-10.2) mg/dL Ionized Calcium Brittany (4.5-5.3) mg/dL Magnesium (1.6-2.3) mg/dL Total Bilirubin (0.2-1.3) mg/dL AST (14-36) U/L Alkaline Phosphatase (38-126) U/L Total Protein (6.3-8.2) g/dL Albumin (3.5-5.0) g/dL Arterial Blood Potassium 4.8 H (3.4-4.5) mmol/L Arterial Blood Glucose 226 H 183 H 135 H (75-99) mg/dL Crossmatch 12/28/17 12/28/17 12/28/17 Range/Units 15:58 15:58 15:58 RBC 1.83 L (3.80-5.40) m/uL Hgb 5.8 L* D (11.4-16.0) gm/dL Hct 17.4 L* (34.0-46.0) % RDW (11.5-15.5) % Plt Count 82 L D (150-450) k/uL Lymphocytes # 0.9 L (1.0-4.8) k/uL PT 22.9 H (9.0-12.0) sec INR 2.5 H (<1.2) APTT 61.0 H (22.0-30.0) sec ABG pH (7.35-7.45) ABG pCO2 (35-45) mmHg ABG pO2 (83-108) mmHg ABG HCO3 (21-25) mmol/L ABG Total CO2 (19-24) mmol/L ABG O2 Saturation (94-97) % ABG Hematocrit (34.0-46.0) % ABG Sodium (135-146) mmol/L ABG Potassium (3.4-4.5) mmol/L ABG Ionized Calcium (4.5-5.3) mg/dL ABG Glucose (75-99) mg/dL ABG Lactic Acid (0.5-1.6) mmol/L Hemoglobin (11.4-16.0) gm/dL Sodium 136 L (137-145) mmol/L Creatinine 0.44 L (0.52-1.04) mg/dL Glucose 102 H (74-99) mg/dL POC Glucose (mg/dL) (75-99) mg/dL Calcium 7.5 L (8.4-10.2) mg/dL Ionized Calcium Brittany 4.3 L (4.5-5.3) mg/dL Magnesium 2.5 H (1.6-2.3) mg/dL Total Bilirubin (0.2-1.3) mg/dL AST (14-36) U/L Alkaline Phosphatase <20 L (38-126) U/L Total Protein 4.6 L (6.3-8.2) g/dL Albumin 3.2 L (3.5-5.0) g/dL Arterial Blood Potassium (3.4-4.5) mmol/L Arterial Blood Glucose (75-99) mg/dL Crossmatch 12/28/17 12/28/17 12/28/17 Range/Units 15:59 16:29 17:08 RBC (3.80-5.40) m/uL Hgb (11.4-16.0) gm/dL Hct (34.0-46.0) % RDW (11.5-15.5) % Plt Count (150-450) k/uL Lymphocytes # (1.0-4.8) k/uL PT (9.0-12.0) sec INR (<1.2) APTT (22.0-30.0) sec ABG pH 7.32 L (7.35-7.45) ABG pCO2 47 H (35-45) mmHg ABG pO2 >400 H (83-108) mmHg ABG HCO3 (21-25) mmol/L ABG Total CO2 25 H (19-24) mmol/L ABG O2 Saturation 100.0 H (94-97) % ABG Hematocrit (34.0-46.0) % ABG Sodium (135-146) mmol/L ABG Potassium (3.4-4.5) mmol/L ABG Ionized Calcium (4.5-5.3) mg/dL ABG Glucose (75-99) mg/dL ABG Lactic Acid (0.5-1.6) mmol/L Hemoglobin (11.4-16.0) gm/dL Sodium (137-145) mmol/L Creatinine (0.52-1.04) mg/dL Glucose (74-99) mg/dL POC Glucose (mg/dL) 124 H 102 H (75-99) mg/dL Calcium (8.4-10.2) mg/dL Ionized Calcium Brittany (4.5-5.3) mg/dL Magnesium (1.6-2.3) mg/dL Total Bilirubin (0.2-1.3) mg/dL AST (14-36) U/L Alkaline Phosphatase (38-126) U/L Total Protein (6.3-8.2) g/dL Albumin (3.5-5.0) g/dL Arterial Blood Potassium (3.4-4.5) mmol/L Arterial Blood Glucose (75-99) mg/dL Crossmatch 12/28/17 12/28/17 12/28/17 Range/Units 18:10 19:05 19:58 RBC (3.80-5.40) m/uL Hgb (11.4-16.0) gm/dL Hct (34.0-46.0) % RDW (11.5-15.5) % Plt Count (150-450) k/uL Lymphocytes # (1.0-4.8) k/uL PT (9.0-12.0) sec INR (<1.2) APTT (22.0-30.0) sec ABG pH (7.35-7.45) ABG pCO2 (35-45) mmHg ABG pO2 (83-108) mmHg ABG HCO3 (21-25) mmol/L ABG Total CO2 (19-24) mmol/L ABG O2 Saturation (94-97) % ABG Hematocrit (34.0-46.0) % ABG Sodium (135-146) mmol/L ABG Potassium (3.4-4.5) mmol/L ABG Ionized Calcium (4.5-5.3) mg/dL ABG Glucose (75-99) mg/dL ABG Lactic Acid (0.5-1.6) mmol/L Hemoglobin (11.4-16.0) gm/dL Sodium (137-145) mmol/L Creatinine (0.52-1.04) mg/dL Glucose (74-99) mg/dL POC Glucose (mg/dL) 131 H 148 H 155 H (75-99) mg/dL Calcium (8.4-10.2) mg/dL Ionized Calcium Brittany (4.5-5.3) mg/dL Magnesium (1.6-2.3) mg/dL Total Bilirubin (0.2-1.3) mg/dL AST (14-36) U/L Alkaline Phosphatase (38-126) U/L Total Protein (6.3-8.2) g/dL Albumin (3.5-5.0) g/dL Arterial Blood Potassium (3.4-4.5) mmol/L Arterial Blood Glucose (75-99) mg/dL Crossmatch 12/28/17 12/28/17 12/28/17 Range/Units 20:47 20:47 20:47 RBC 1.99 L (3.80-5.40) m/uL Hgb 6.4 L* (11.4-16.0) gm/dL Hct 18.3 L* (34.0-46.0) % RDW (11.5-15.5) % Plt Count 98 L (150-450) k/uL Lymphocytes # 0.5 L (1.0-4.8) k/uL PT 16.3 H (9.0-12.0) sec INR 1.8 H (<1.2) APTT (22.0-30.0) sec ABG pH (7.35-7.45) ABG pCO2 (35-45) mmHg ABG pO2 (83-108) mmHg ABG HCO3 (21-25) mmol/L ABG Total CO2 (19-24) mmol/L ABG O2 Saturation (94-97) % ABG Hematocrit (34.0-46.0) % ABG Sodium (135-146) mmol/L ABG Potassium (3.4-4.5) mmol/L ABG Ionized Calcium (4.5-5.3) mg/dL ABG Glucose (75-99) mg/dL ABG Lactic Acid (0.5-1.6) mmol/L Hemoglobin (11.4-16.0) gm/dL Sodium 135 L (137-145) mmol/L Creatinine 0.46 L (0.52-1.04) mg/dL Glucose 128 H (74-99) mg/dL POC Glucose (mg/dL) (75-99) mg/dL Calcium 7.7 L (8.4-10.2) mg/dL Ionized Calcium Brittany (4.5-5.3) mg/dL Magnesium (1.6-2.3) mg/dL Total Bilirubin 1.8 H (0.2-1.3) mg/dL AST (14-36) U/L Alkaline Phosphatase 20 L (38-126) U/L Total Protein 4.7 L (6.3-8.2) g/dL Albumin 3.2 L (3.5-5.0) g/dL Arterial Blood Potassium (3.4-4.5) mmol/L Arterial Blood Glucose (75-99) mg/dL Crossmatch 12/28/17 12/28/17 12/28/17 Range/Units 20:53 22:09 23:00 RBC (3.80-5.40) m/uL Hgb (11.4-16.0) gm/dL Hct (34.0-46.0) % RDW (11.5-15.5) % Plt Count (150-450) k/uL Lymphocytes # (1.0-4.8) k/uL PT (9.0-12.0) sec INR (<1.2) APTT (22.0-30.0) sec ABG pH 7.21 L (7.35-7.45) ABG pCO2 64 H (35-45) mmHg ABG pO2 124 H (83-108) mmHg ABG HCO3 26 H (21-25) mmol/L ABG Total CO2 28 H (19-24) mmol/L ABG O2 Saturation 99.1 H (94-97) % ABG Hematocrit (34.0-46.0) % ABG Sodium (135-146) mmol/L ABG Potassium (3.4-4.5) mmol/L ABG Ionized Calcium (4.5-5.3) mg/dL ABG Glucose (75-99) mg/dL ABG Lactic Acid (0.5-1.6) mmol/L Hemoglobin (11.4-16.0) gm/dL Sodium (137-145) mmol/L Creatinine (0.52-1.04) mg/dL Glucose (74-99) mg/dL POC Glucose (mg/dL) 148 H 122 H (75-99) mg/dL Calcium (8.4-10.2) mg/dL Ionized Calcium Brittayn (4.5-5.3) mg/dL Magnesium (1.6-2.3) mg/dL Total Bilirubin (0.2-1.3) mg/dL AST (14-36) U/L Alkaline Phosphatase (38-126) U/L Total Protein (6.3-8.2) g/dL Albumin (3.5-5.0) g/dL Arterial Blood Potassium (3.4-4.5) mmol/L Arterial Blood Glucose (75-99) mg/dL Crossmatch 12/28/17 12/29/17 12/29/17 Range/Units 23:14 00:13 01:08 RBC (3.80-5.40) m/uL Hgb (11.4-16.0) gm/dL Hct (34.0-46.0) % RDW (11.5-15.5) % Plt Count (150-450) k/uL Lymphocytes # (1.0-4.8) k/uL PT (9.0-12.0) sec INR (<1.2) APTT (22.0-30.0) sec ABG pH 7.18 L* (7.35-7.45) ABG pCO2 66 H (35-45) mmHg ABG pO2 (83-108) mmHg ABG HCO3 (21-25) mmol/L ABG Total CO2 27 H (19-24) mmol/L ABG O2 Saturation 98.3 H (94-97) % ABG Hematocrit (34.0-46.0) % ABG Sodium (135-146) mmol/L ABG Potassium (3.4-4.5) mmol/L ABG Ionized Calcium (4.5-5.3) mg/dL ABG Glucose (75-99) mg/dL ABG Lactic Acid (0.5-1.6) mmol/L Hemoglobin (11.4-16.0) gm/dL Sodium (137-145) mmol/L Creatinine (0.52-1.04) mg/dL Glucose (74-99) mg/dL POC Glucose (mg/dL) 112 H 150 H (75-99) mg/dL Calcium (8.4-10.2) mg/dL Ionized Calcium Brittany (4.5-5.3) mg/dL Magnesium (1.6-2.3) mg/dL Total Bilirubin (0.2-1.3) mg/dL AST (14-36) U/L Alkaline Phosphatase (38-126) U/L Total Protein (6.3-8.2) g/dL Albumin (3.5-5.0) g/dL Arterial Blood Potassium (3.4-4.5) mmol/L Arterial Blood Glucose (75-99) mg/dL Crossmatch 12/29/17 12/29/17 12/29/17 Range/Units 01:10 01:58 03:11 RBC (3.80-5.40) m/uL Hgb (11.4-16.0) gm/dL Hct (34.0-46.0) % RDW (11.5-15.5) % Plt Count (150-450) k/uL Lymphocytes # (1.0-4.8) k/uL PT (9.0-12.0) sec INR (<1.2) APTT (22.0-30.0) sec ABG pH (7.35-7.45) ABG pCO2 (35-45) mmHg ABG pO2 (83-108) mmHg ABG HCO3 (21-25) mmol/L ABG Total CO2 (19-24) mmol/L ABG O2 Saturation (94-97) % ABG Hematocrit (34.0-46.0) % ABG Sodium (135-146) mmol/L ABG Potassium (3.4-4.5) mmol/L ABG Ionized Calcium (4.5-5.3) mg/dL ABG Glucose (75-99) mg/dL ABG Lactic Acid (0.5-1.6) mmol/L Hemoglobin (11.4-16.0) gm/dL Sodium (137-145) mmol/L Creatinine (0.52-1.04) mg/dL Glucose (74-99) mg/dL POC Glucose (mg/dL) 143 H 123 H 111 H (75-99) mg/dL Calcium (8.4-10.2) mg/dL Ionized Calcium Brittany (4.5-5.3) mg/dL Magnesium (1.6-2.3) mg/dL Total Bilirubin (0.2-1.3) mg/dL AST (14-36) U/L Alkaline Phosphatase (38-126) U/L Total Protein (6.3-8.2) g/dL Albumin (3.5-5.0) g/dL Arterial Blood Potassium (3.4-4.5) mmol/L Arterial Blood Glucose (75-99) mg/dL Crossmatch 12/29/17 12/29/17 12/29/17 Range/Units 04:35 04:37 04:40 RBC 1.67 L (3.80-5.40) m/uL Hgb 5.2 L* (11.4-16.0) gm/dL Hct 15.5 L* (34.0-46.0) % RDW 15.9 H (11.5-15.5) % Plt Count 106 L (150-450) k/uL Lymphocytes # 0.5 L (1.0-4.8) k/uL PT (9.0-12.0) sec INR (<1.2) APTT (22.0-30.0) sec ABG pH (7.35-7.45) ABG pCO2 (35-45) mmHg ABG pO2 195 H (83-108) mmHg ABG HCO3 (21-25) mmol/L ABG Total CO2 26 H (19-24) mmol/L ABG O2 Saturation 99.9 H (94-97) % ABG Hematocrit (34.0-46.0) % ABG Sodium (135-146) mmol/L ABG Potassium (3.4-4.5) mmol/L ABG Ionized Calcium (4.5-5.3) mg/dL ABG Glucose (75-99) mg/dL ABG Lactic Acid (0.5-1.6) mmol/L Hemoglobin (11.4-16.0) gm/dL Sodium (137-145) mmol/L Creatinine (0.52-1.04) mg/dL Glucose (74-99) mg/dL POC Glucose (mg/dL) 112 H (75-99) mg/dL Calcium (8.4-10.2) mg/dL Ionized Calcium Brittany (4.5-5.3) mg/dL Magnesium (1.6-2.3) mg/dL Total Bilirubin (0.2-1.3) mg/dL AST (14-36) U/L Alkaline Phosphatase (38-126) U/L Total Protein (6.3-8.2) g/dL Albumin (3.5-5.0) g/dL Arterial Blood Potassium (3.4-4.5) mmol/L Arterial Blood Glucose (75-99) mg/dL Crossmatch 12/29/17 12/29/17 12/29/17 Range/Units 04:40 04:40 05:16 RBC (3.80-5.40) m/uL Hgb (11.4-16.0) gm/dL Hct (34.0-46.0) % RDW (11.5-15.5) % Plt Count (150-450) k/uL Lymphocytes # (1.0-4.8) k/uL PT 14.9 H (9.0-12.0) sec INR 1.6 H (<1.2) APTT 33.5 H (22.0-30.0) sec ABG pH (7.35-7.45) ABG pCO2 (35-45) mmHg ABG pO2 (83-108) mmHg ABG HCO3 (21-25) mmol/L ABG Total CO2 (19-24) mmol/L ABG O2 Saturation (94-97) % ABG Hematocrit (34.0-46.0) % ABG Sodium (135-146) mmol/L ABG Potassium (3.4-4.5) mmol/L ABG Ionized Calcium (4.5-5.3) mg/dL ABG Glucose (75-99) mg/dL ABG Lactic Acid (0.5-1.6) mmol/L Hemoglobin (11.4-16.0) gm/dL Sodium (137-145) mmol/L Creatinine (0.52-1.04) mg/dL Glucose (74-99) mg/dL POC Glucose (mg/dL) 119 H (75-99) mg/dL Calcium 7.7 L (8.4-10.2) mg/dL Ionized Calcium Brittany (4.5-5.3) mg/dL Magnesium (1.6-2.3) mg/dL Total Bilirubin (0.2-1.3) mg/dL AST 37 H (14-36) U/L Alkaline Phosphatase 22 L (38-126) U/L Total Protein 4.6 L (6.3-8.2) g/dL Albumin 3.1 L (3.5-5.0) g/dL Arterial Blood Potassium (3.4-4.5) mmol/L Arterial Blood Glucose (75-99) mg/dL Crossmatch 12/29/17 12/29/17 12/29/17 Range/Units 06:17 08:08 08:50 RBC (3.80-5.40) m/uL Hgb (11.4-16.0) gm/dL Hct (34.0-46.0) % RDW (11.5-15.5) % Plt Count (150-450) k/uL Lymphocytes # (1.0-4.8) k/uL PT (9.0-12.0) sec INR (<1.2) APTT (22.0-30.0) sec ABG pH (7.35-7.45) ABG pCO2 (35-45) mmHg ABG pO2 (83-108) mmHg ABG HCO3 (21-25) mmol/L ABG Total CO2 (19-24) mmol/L ABG O2 Saturation (94-97) % ABG Hematocrit (34.0-46.0) % ABG Sodium (135-146) mmol/L ABG Potassium (3.4-4.5) mmol/L ABG Ionized Calcium (4.5-5.3) mg/dL ABG Glucose (75-99) mg/dL ABG Lactic Acid (0.5-1.6) mmol/L Hemoglobin (11.4-16.0) gm/dL Sodium (137-145) mmol/L Creatinine (0.52-1.04) mg/dL Glucose (74-99) mg/dL POC Glucose (mg/dL) 129 H 131 H 130 H (75-99) mg/dL Calcium (8.4-10.2) mg/dL Ionized Calcium Brittany (4.5-5.3) mg/dL Magnesium (1.6-2.3) mg/dL Total Bilirubin (0.2-1.3) mg/dL AST (14-36) U/L Alkaline Phosphatase (38-126) U/L Total Protein (6.3-8.2) g/dL Albumin (3.5-5.0) g/dL Arterial Blood Potassium (3.4-4.5) mmol/L Arterial Blood Glucose (75-99) mg/dL Crossmatch 12/29/17 12/29/17 12/29/17 Range/Units 09:59 10:02 10:59 RBC 2.25 L (3.80-5.40) m/uL Hgb 7.2 L D (11.4-16.0) gm/dL Hct 20.9 L (34.0-46.0) % RDW 15.9 H (11.5-15.5) % Plt Count 105 L (150-450) k/uL Lymphocytes # 0.7 L (1.0-4.8) k/uL PT (9.0-12.0) sec INR (<1.2) APTT (22.0-30.0) sec ABG pH 7.30 L (7.35-7.45) ABG pCO2 51 H (35-45) mmHg ABG pO2 (83-108) mmHg ABG HCO3 (21-25) mmol/L ABG Total CO2 27 H (19-24) mmol/L ABG O2 Saturation 98.5 H (94-97) % ABG Hematocrit (34.0-46.0) % ABG Sodium (135-146) mmol/L ABG Potassium (3.4-4.5) mmol/L ABG Ionized Calcium (4.5-5.3) mg/dL ABG Glucose (75-99) mg/dL ABG Lactic Acid (0.5-1.6) mmol/L Hemoglobin (11.4-16.0) gm/dL Sodium (137-145) mmol/L Creatinine (0.52-1.04) mg/dL Glucose (74-99) mg/dL POC Glucose (mg/dL) 117 H (75-99) mg/dL Calcium (8.4-10.2) mg/dL Ionized Calcium Brittany (4.5-5.3) mg/dL Magnesium (1.6-2.3) mg/dL Total Bilirubin (0.2-1.3) mg/dL AST (14-36) U/L Alkaline Phosphatase (38-126) U/L Total Protein (6.3-8.2) g/dL Albumin (3.5-5.0) g/dL Arterial Blood Potassium (3.4-4.5) mmol/L Arterial Blood Glucose (75-99) mg/dL Crossmatch 12/29/17 12/29/17 12/29/17 Range/Units 11:03 12:37 12:47 RBC (3.80-5.40) m/uL Hgb (11.4-16.0) gm/dL Hct (34.0-46.0) % RDW (11.5-15.5) % Plt Count (150-450) k/uL Lymphocytes # (1.0-4.8) k/uL PT (9.0-12.0) sec INR (<1.2) APTT (22.0-30.0) sec ABG pH (7.35-7.45) ABG pCO2 (35-45) mmHg ABG pO2 115 H (83-108) mmHg ABG HCO3 (21-25) mmol/L ABG Total CO2 25 H (19-24) mmol/L ABG O2 Saturation 99.3 H (94-97) % ABG Hematocrit (34.0-46.0) % ABG Sodium (135-146) mmol/L ABG Potassium (3.4-4.5) mmol/L ABG Ionized Calcium (4.5-5.3) mg/dL ABG Glucose (75-99) mg/dL ABG Lactic Acid (0.5-1.6) mmol/L Hemoglobin (11.4-16.0) gm/dL Sodium (137-145) mmol/L Creatinine (0.52-1.04) mg/dL Glucose (74-99) mg/dL POC Glucose (mg/dL) 107 H 126 H (75-99) mg/dL Calcium (8.4-10.2) mg/dL Ionized Calcium Brittany (4.5-5.3) mg/dL Magnesium (1.6-2.3) mg/dL Total Bilirubin (0.2-1.3) mg/dL AST (14-36) U/L Alkaline Phosphatase (38-126) U/L Total Protein (6.3-8.2) g/dL Albumin (3.5-5.0) g/dL Arterial Blood Potassium (3.4-4.5) mmol/L Arterial Blood Glucose (75-99) mg/dL Crossmatch 12/29/17 12/29/17 12/29/17 Range/Units 13:17 13:53 14:14 RBC (3.80-5.40) m/uL Hgb (11.4-16.0) gm/dL Hct (34.0-46.0) % RDW (11.5-15.5) % Plt Count (150-450) k/uL Lymphocytes # (1.0-4.8) k/uL PT (9.0-12.0) sec INR (<1.2) APTT (22.0-30.0) sec ABG pH 7.34 L (7.35-7.45) ABG pCO2 (35-45) mmHg ABG pO2 65 L (83-108) mmHg ABG HCO3 (21-25) mmol/L ABG Total CO2 (19-24) mmol/L ABG O2 Saturation 93.3 L (94-97) % ABG Hematocrit (34.0-46.0) % ABG Sodium (135-146) mmol/L ABG Potassium (3.4-4.5) mmol/L ABG Ionized Calcium (4.5-5.3) mg/dL ABG Glucose (75-99) mg/dL ABG Lactic Acid (0.5-1.6) mmol/L Hemoglobin (11.4-16.0) gm/dL Sodium (137-145) mmol/L Creatinine (0.52-1.04) mg/dL Glucose (74-99) mg/dL POC Glucose (mg/dL) 126 H 126 H (75-99) mg/dL Calcium (8.4-10.2) mg/dL Ionized Calcium Brittany (4.5-5.3) mg/dL Magnesium (1.6-2.3) mg/dL Total Bilirubin (0.2-1.3) mg/dL AST (14-36) U/L Alkaline Phosphatase (38-126) U/L Total Protein (6.3-8.2) g/dL Albumin (3.5-5.0) g/dL Arterial Blood Potassium (3.4-4.5) mmol/L Arterial Blood Glucose (75-99) mg/dL Crossmatch Assessment and Plan Plan: Assessment 1 triple-vessel coronary artery disease, symptomatic with exertional angina and shortness of breath, patient underwent three-vessel bypass surgery and currently she is postop day #1 2 post thoracotomy, currently intubated on mechanical ventilator on an assist- control mode of ventilation. Patient has 2 mediastinal and 1 pleural chest tube. The patient had exceeded output from the chest tube and this was associated with significant drop in hemoglobin requiring packed RBC transfusion. Most of hemodynamic parameters show a cardiac output of 3.2 with an index of 1.9. PA pressures around 35/16. 3 anemia with significant drop in hemoglobin the patient got transfused packed RBC and currently hemoglobin is stable up to 7.2. 4 COPD, severe at baseline FEV1 in the 70% range, preoperatively. And postoperative the patient developed an acute component of COPD exacerbation/ bronchospasm wheezing and the patient is currently on a, initial bronchial breath and systemic steroids. Patient is also on BiPAP for respiratory support. The patient was extubated to nasal cannula initially and subsequently placed on BiPAP at a pressure of 14/5 cm of water and FiO2 of 50%. Blood gases are being monitored very closely. 5 chronic back pain 6 hypothyroidism 7 hypertension 8 peripheral vascular disease Plan Continue BiPAP for restless support. Monitor the blood gases. Monitor the output from the chest tube. Monitored hemodynamics. Keep the Precedex for now and gradually wean it off based on the patient's agitation and synchrony with the BiPAP. Continue bronchodilators. Continue systemic steroids. Condition is critical. Family is at the bedside. We'll continue to follow and will monitor the overall pulmonary status and progress very closely in the ICU. There is a critically care evaluation that was done more than 30 minutes and the family was updated at length about his situation and the case was also discussed with cardiothoracic surgery. Time with Patient: Greater than 30
[2017-12-29 15:10] LABS: Glucose,Whole Blood 132 mg/dL (75-99)
--- NOTE | 2017-12-29 15:48 | P.PN ---
Subjective Progress Note Date: 12/29/17 Principal diagnosis: Triple-vessel coronary artery disease. Preserved left ventricular function. History of mild chronic obstructive pulmonary disease with preoperative FEV1 70 % of predicted, severe peripheral vascular disease, hypertension, pulmonary embolism, hypothyroid, and previous tobacco dependence. POD #1 triple coronary artery bypass grafting using the left internal mammary artery to the left anterior descending artery, reverse saphenous vein graft from the aorta to the first obtuse marginal artery, reverse saphenous vein graft from the aorta to the posterior descending artery, endoscopic harvesting of the left greater saphenous vein, intraoperative transesophageal echocardiogram and epi-aortic scanning, intraoperative graft flow measurements using the [employer] system. Postoperative acute blood loss anemia, an unexpected outcome. The patient is currently lying in bed in no acute distress on BiPAP. She was successfully extubated at 11:51 AM today. She remains hemodynamically stable on no vasopressors. She does shake her head no when asked if she is in pain. She did receive 2 units of packed red blood cells and 2 units of FFP yesterday, and another unit of packed red blood cells this morning. Objective - Vital Signs Vital signs: Vital Signs Temp 98.1 F 12/29/17 12:30 Pulse 69 12/29/17 15:00 Resp 12 12/29/17 15:00 BP 140/71 12/29/17 13:30 Pulse Ox 97 12/29/17 15:00 Intake & Output 12/28/17 12/29/17 12/29/17 18:59 06:59 18:59 Intake Total 1100 6114.816 0784.470 Output Total 2275 1405 1310 Balance -1175 201.335 -291.530 Weight 66.4 kg 74.3 kg 74.3 kg Intake: IV 270 838 541 CO/CI 60 130 10 Lactated Ringers 1,000 ml 150 600 450 @ 20 mls/hr IV .Q24H JENN[facility]ER Rx#:[id number] Pressure Bags 27 108 81 Intake, IV Titration 562.335 167.470 Amount ACETAMINOPHEN IV (For NPO 200 ) 1,000 mg In Empty Bag 1 bag @ 400 mls/hr IVPB Q6HR JENNIFER Rx#:[id number] Albumin Human 5% 250 ml 250 In Empty Bag 1 bag @ 250 mls/hr IVPB Q1HR PRN Rx#: [id number] Dexmedetomidine/0.9% NaCl 20.425 (Pmx) 400 mcg In Empty Bag 1 bag @ Titrate IV . Q0M JENNIFER Rx#:[id number] Insulin Regular 100 unit 13.541 8.217 In Sodium Chloride 0.9% 100 ml @ Per Protocol IV .Q0M JENNIFER Rx#:[id number] Nitroglycerin-D5w Pmx 50 20.675 mg In Dextrose/Water 1 250ml.bag @ 5 MCG/MIN 1.5 mls/hr IV .Q24H JENNIFER Rx#: [id number] Norepinephrine 16 mg In 1.822 Sodium Chloride 0.9% 250 ml @ Titrate IV .Q0M JENNIFER Rx#:[id number] Norepinephrine 4 mg In 97.50 56.438 Sodium Chloride 0.9% 250 ml @ Titrate IV .Q0M JENNIFER Rx#:[id number] Propofol 1,000 mg In 1.294 59.893 Empty Bag 1 bag @ Titrate IV .Q0M JENNIFER Rx#: [id number] Blood Product 830 206 310 Ffp 24 Cp2d Unit 206 [id number] Ffp 24 Cp2d Unit 210 [id number] Rc As-1 Unit 310 [id number] Rc As-3 Unit 0 310 [id number] Rc Pheresis 2 As3 Unit 310 [id number] Output: Chest Tube Drainage 760 805 610 Left Pleural 300 430 450 Mediastinal 460 375 160 Drainage 30 70 Left Calf 30 70 Urine 685 530 700 Estimated Blood Loss 800 Other: Voiding Method Indwelling Catheter Indwelling Catheter ABP, PAP, CO, CI - Last Documented Arterial Blood Pressure 142/56 Pulmonary Artery Pressure 32/19 Cardiac Output 3.2 Cardiac Index 1.9 - Constitutional General appearance: Present: cooperative, no acute distress, obese - Respiratory Details: Lungs sounds diminished bilaterally. Respirations even, nonlabored. Currently on BiPAP with FiO2 40%, Ipap 14, Epap 5. Mediastinal chest tube to continuous wall suction, 235 mL serosanguineous drainage per hour overnight. Left pleural chest tube to continuous wall suction, 220 mL serosanguineous drainage overnight. No air leaks present. - Cardiovascular Details: S1, S2 present. Regular rate and rhythm, sinus rhythm on telemetry. Sternum stable. A/V epicardial pacemaker wires present, connected to generator, AAI mode with rate 70 bpm. Palpable peripheral pulses bilaterally. No edema present. No calf pain or tenderness noted. Right internal jugular Boaz/Cordis , right radial arterial line present. Last CO/CI 3.4/2.0 on no inotropes. Heart hugger in place with patient not able to demonstrate appropriate use. Antiembolism stockings, SCDs present. - Gastrointestinal Gastrointestinal Comment(s): Abdomen soft, nontender, nondistended. Hypoactive bowel sounds present 4 quadrants. - Genitourinary Genitourinary Comment(s): Segovia present draining clear, yellow urine. Output 30-40 mL/h overnight. - Integumentary Integumentary Comment(s): Skin is warm and dry with evidence of good perfusion. Anterior chest incision well approximated and covered with dry intact dressing. Left lower extremity EVH site well approximated. Area of skin excoriation to left brandon, dressing with serous drainage. - Neurologic Neurologic Comment(s): Able to move both sides symmetrically, following some commands. - Musculoskeletal Musculoskeletal: Present: generalized weakness - Labs CBC & Chem 7: 12/29/17 10:02 12/29/17 10:02 Labs: Abnormal Lab Results - Last 24 Hours (Table) 12/22/17 12/28/17 12/28/17 Range/Units 08:56 10:18 13:12 RBC (3.80-5.40) m/uL Hgb (11.4-16.0) gm/dL Hct (34.0-46.0) % RDW (11.5-15.5) % Plt Count (150-450) k/uL Lymphocytes # (1.0-4.8) k/uL PT (9.0-12.0) sec INR (<1.2) APTT (22.0-30.0) sec ABG pH 7.47 H (7.35-7.45) ABG pCO2 (35-45) mmHg ABG pO2 361 H 366 H (83-108) mmHg ABG HCO3 26 H (21-25) mmol/L ABG Total CO2 28 H 26 H (19-24) mmol/L ABG O2 Saturation 100.0 H 100.0 H (94-97) % ABG Hematocrit 31 L 20 L* (34.0-46.0) % ABG Sodium 133 L 127 L (135-146) mmol/L ABG Potassium 4.8 H (3.4-4.5) mmol/L ABG Ionized Calcium 4.1 L (4.5-5.3) mg/dL ABG Glucose 107 H 195 H (75-99) mg/dL ABG Lactic Acid (0.5-1.6) mmol/L Hemoglobin 10.2 L 6.7 L* (11.4-16.0) gm/dL Sodium (137-145) mmol/L Creatinine (0.52-1.04) mg/dL Glucose (74-99) mg/dL POC Glucose (mg/dL) (75-99) mg/dL Calcium (8.4-10.2) mg/dL Ionized Calcium Brittany (4.5-5.3) mg/dL Magnesium (1.6-2.3) mg/dL Total Bilirubin (0.2-1.3) mg/dL AST (14-36) U/L Alkaline Phosphatase (38-126) U/L Total Protein (6.3-8.2) g/dL Albumin (3.5-5.0) g/dL Arterial Blood Potassium 4.8 H (3.4-4.5) mmol/L Arterial Blood Glucose 107 H 195 H (75-99) mg/dL Crossmatch See Detail 12/28/17 12/28/17 12/28/17 Range/Units 13:41 14:11 14:47 RBC (3.80-5.40) m/uL Hgb (11.4-16.0) gm/dL Hct (34.0-46.0) % RDW (11.5-15.5) % Plt Count (150-450) k/uL Lymphocytes # (1.0-4.8) k/uL PT (9.0-12.0) sec INR (<1.2) APTT (22.0-30.0) sec ABG pH 7.50 H (7.35-7.45) ABG pCO2 33 L (35-45) mmHg ABG pO2 360 H >420 H 226 H (83-108) mmHg ABG HCO3 26 H (21-25) mmol/L ABG Total CO2 27 H 26 H (19-24) mmol/L ABG O2 Saturation 100.0 H 100.0 H 99.8 H (94-97) % ABG Hematocrit 20 L* 20 L* 19 L* (34.0-46.0) % ABG Sodium 127 L 130 L 132 L (135-146) mmol/L ABG Potassium 4.8 H (3.4-4.5) mmol/L ABG Ionized Calcium 4.1 L 4.1 L (4.5-5.3) mg/dL ABG Glucose 226 H 183 H 135 H (75-99) mg/dL ABG Lactic Acid 2.1 H (0.5-1.6) mmol/L Hemoglobin 6.5 L* 6.4 L* 6.0 L* (11.4-16.0) gm/dL Sodium (137-145) mmol/L Creatinine (0.52-1.04) mg/dL Glucose (74-99) mg/dL POC Glucose (mg/dL) (75-99) mg/dL Calcium (8.4-10.2) mg/dL Ionized Calcium Brittany (4.5-5.3) mg/dL Magnesium (1.6-2.3) mg/dL Total Bilirubin (0.2-1.3) mg/dL AST (14-36) U/L Alkaline Phosphatase (38-126) U/L Total Protein (6.3-8.2) g/dL Albumin (3.5-5.0) g/dL Arterial Blood Potassium 4.8 H (3.4-4.5) mmol/L Arterial Blood Glucose 226 H 183 H 135 H (75-99) mg/dL Crossmatch 12/28/17 12/28/17 12/28/17 Range/Units 15:58 15:58 15:58 RBC 1.83 L (3.80-5.40) m/uL Hgb 5.8 L* D (11.4-16.0) gm/dL Hct 17.4 L* (34.0-46.0) % RDW (11.5-15.5) % Plt Count 82 L D (150-450) k/uL Lymphocytes # 0.9 L (1.0-4.8) k/uL PT 22.9 H (9.0-12.0) sec INR 2.5 H (<1.2) APTT 61.0 H (22.0-30.0) sec ABG pH (7.35-7.45) ABG pCO2 (35-45) mmHg ABG pO2 (83-108) mmHg ABG HCO3 (21-25) mmol/L ABG Total CO2 (19-24) mmol/L ABG O2 Saturation (94-97) % ABG Hematocrit (34.0-46.0) % ABG Sodium (135-146) mmol/L ABG Potassium (3.4-4.5) mmol/L ABG Ionized Calcium (4.5-5.3) mg/dL ABG Glucose (75-99) mg/dL ABG Lactic Acid (0.5-1.6) mmol/L Hemoglobin (11.4-16.0) gm/dL Sodium 136 L (137-145) mmol/L Creatinine 0.44 L (0.52-1.04) mg/dL Glucose 102 H (74-99) mg/dL POC Glucose (mg/dL) (75-99) mg/dL Calcium 7.5 L (8.4-10.2) mg/dL Ionized Calcium Brittany 4.3 L (4.5-5.3) mg/dL Magnesium 2.5 H (1.6-2.3) mg/dL Total Bilirubin (0.2-1.3) mg/dL AST (14-36) U/L Alkaline Phosphatase <20 L (38-126) U/L Total Protein 4.6 L (6.3-8.2) g/dL Albumin 3.2 L (3.5-5.0) g/dL Arterial Blood Potassium (3.4-4.5) mmol/L Arterial Blood Glucose (75-99) mg/dL Crossmatch 12/28/17 12/28/17 12/28/17 Range/Units 15:59 16:29 17:08 RBC (3.80-5.40) m/uL Hgb (11.4-16.0) gm/dL Hct (34.0-46.0) % RDW (11.5-15.5) % Plt Count (150-450) k/uL Lymphocytes # (1.0-4.8) k/uL PT (9.0-12.0) sec INR (<1.2) APTT (22.0-30.0) sec ABG pH 7.32 L (7.35-7.45) ABG pCO2 47 H (35-45) mmHg ABG pO2 >400 H (83-108) mmHg ABG HCO3 (21-25) mmol/L ABG Total CO2 25 H (19-24) mmol/L ABG O2 Saturation 100.0 H (94-97) % ABG Hematocrit (34.0-46.0) % ABG Sodium (135-146) mmol/L ABG Potassium (3.4-4.5) mmol/L ABG Ionized Calcium (4.5-5.3) mg/dL ABG Glucose (75-99) mg/dL ABG Lactic Acid (0.5-1.6) mmol/L Hemoglobin (11.4-16.0) gm/dL Sodium (137-145) mmol/L Creatinine (0.52-1.04) mg/dL Glucose (74-99) mg/dL POC Glucose (mg/dL) 124 H 102 H (75-99) mg/dL Calcium (8.4-10.2) mg/dL Ionized Calcium Brittany (4.5-5.3) mg/dL Magnesium (1.6-2.3) mg/dL Total Bilirubin (0.2-1.3) mg/dL AST (14-36) U/L Alkaline Phosphatase (38-126) U/L Total Protein (6.3-8.2) g/dL Albumin (3.5-5.0) g/dL Arterial Blood Potassium (3.4-4.5) mmol/L Arterial Blood Glucose (75-99) mg/dL Crossmatch 12/28/17 12/28/17 12/28/17 Range/Units 18:10 19:05 19:58 RBC (3.80-5.40) m/uL Hgb (11.4-16.0) gm/dL Hct (34.0-46.0) % RDW (11.5-15.5) % Plt Count (150-450) k/uL Lymphocytes # (1.0-4.8) k/uL PT (9.0-12.0) sec INR (<1.2) APTT (22.0-30.0) sec ABG pH (7.35-7.45) ABG pCO2 (35-45) mmHg ABG pO2 (83-108) mmHg ABG HCO3 (21-25) mmol/L ABG Total CO2 (19-24) mmol/L ABG O2 Saturation (94-97) % ABG Hematocrit (34.0-46.0) % ABG Sodium (135-146) mmol/L ABG Potassium (3.4-4.5) mmol/L ABG Ionized Calcium (4.5-5.3) mg/dL ABG Glucose (75-99) mg/dL ABG Lactic Acid (0.5-1.6) mmol/L Hemoglobin (11.4-16.0) gm/dL Sodium (137-145) mmol/L Creatinine (0.52-1.04) mg/dL Glucose (74-99) mg/dL POC Glucose (mg/dL) 131 H 148 H 155 H (75-99) mg/dL Calcium (8.4-10.2) mg/dL Ionized Calcium Brittany (4.5-5.3) mg/dL Magnesium (1.6-2.3) mg/dL Total Bilirubin (0.2-1.3) mg/dL AST (14-36) U/L Alkaline Phosphatase (38-126) U/L Total Protein (6.3-8.2) g/dL Albumin (3.5-5.0) g/dL Arterial Blood Potassium (3.4-4.5) mmol/L Arterial Blood Glucose (75-99) mg/dL Crossmatch 12/28/17 12/28/17 12/28/17 Range/Units 20:47 20:47 20:47 RBC 1.99 L (3.80-5.40) m/uL Hgb 6.4 L* (11.4-16.0) gm/dL Hct 18.3 L* (34.0-46.0) % RDW (11.5-15.5) % Plt Count 98 L (150-450) k/uL Lymphocytes # 0.5 L (1.0-4.8) k/uL PT 16.3 H (9.0-12.0) sec INR 1.8 H (<1.2) APTT (22.0-30.0) sec ABG pH (7.35-7.45) ABG pCO2 (35-45) mmHg ABG pO2 (83-108) mmHg ABG HCO3 (21-25) mmol/L ABG Total CO2 (19-24) mmol/L ABG O2 Saturation (94-97) % ABG Hematocrit (34.0-46.0) % ABG Sodium (135-146) mmol/L ABG Potassium (3.4-4.5) mmol/L ABG Ionized Calcium (4.5-5.3) mg/dL ABG Glucose (75-99) mg/dL ABG Lactic Acid (0.5-1.6) mmol/L Hemoglobin (11.4-16.0) gm/dL Sodium 135 L (137-145) mmol/L Creatinine 0.46 L (0.52-1.04) mg/dL Glucose 128 H (74-99) mg/dL POC Glucose (mg/dL) (75-99) mg/dL Calcium 7.7 L (8.4-10.2) mg/dL Ionized Calcium Brittany (4.5-5.3) mg/dL Magnesium (1.6-2.3) mg/dL Total Bilirubin 1.8 H (0.2-1.3) mg/dL AST (14-36) U/L Alkaline Phosphatase 20 L (38-126) U/L Total Protein 4.7 L (6.3-8.2) g/dL Albumin 3.2 L (3.5-5.0) g/dL Arterial Blood Potassium (3.4-4.5) mmol/L Arterial Blood Glucose (75-99) mg/dL Crossmatch 12/28/17 12/28/17 12/28/17 Range/Units 20:53 22:09 23:00 RBC (3.80-5.40) m/uL Hgb (11.4-16.0) gm/dL Hct (34.0-46.0) % RDW (11.5-15.5) % Plt Count (150-450) k/uL Lymphocytes # (1.0-4.8) k/uL PT (9.0-12.0) sec INR (<1.2) APTT (22.0-30.0) sec ABG pH 7.21 L (7.35-7.45) ABG pCO2 64 H (35-45) mmHg ABG pO2 124 H (83-108) mmHg ABG HCO3 26 H (21-25) mmol/L ABG Total CO2 28 H (19-24) mmol/L ABG O2 Saturation 99.1 H (94-97) % ABG Hematocrit (34.0-46.0) % ABG Sodium (135-146) mmol/L ABG Potassium (3.4-4.5) mmol/L ABG Ionized Calcium (4.5-5.3) mg/dL ABG Glucose (75-99) mg/dL ABG Lactic Acid (0.5-1.6) mmol/L Hemoglobin (11.4-16.0) gm/dL Sodium (137-145) mmol/L Creatinine (0.52-1.04) mg/dL Glucose (74-99) mg/dL POC Glucose (mg/dL) 148 H 122 H (75-99) mg/dL Calcium (8.4-10.2) mg/dL Ionized Calcium Brittany (4.5-5.3) mg/dL Magnesium (1.6-2.3) mg/dL Total Bilirubin (0.2-1.3) mg/dL AST (14-36) U/L Alkaline Phosphatase (38-126) U/L Total Protein (6.3-8.2) g/dL Albumin (3.5-5.0) g/dL Arterial Blood Potassium (3.4-4.5) mmol/L Arterial Blood Glucose (75-99) mg/dL Crossmatch 12/28/17 12/29/17 12/29/17 Range/Units 23:14 00:13 01:08 RBC (3.80-5.40) m/uL Hgb (11.4-16.0) gm/dL Hct (34.0-46.0) % RDW (11.5-15.5) % Plt Count (150-450) k/uL Lymphocytes # (1.0-4.8) k/uL PT (9.0-12.0) sec INR (<1.2) APTT (22.0-30.0) sec ABG pH 7.18 L* (7.35-7.45) ABG pCO2 66 H (35-45) mmHg ABG pO2 (83-108) mmHg ABG HCO3 (21-25) mmol/L ABG Total CO2 27 H (19-24) mmol/L ABG O2 Saturation 98.3 H (94-97) % ABG Hematocrit (34.0-46.0) % ABG Sodium (135-146) mmol/L ABG Potassium (3.4-4.5) mmol/L ABG Ionized Calcium (4.5-5.3) mg/dL ABG Glucose (75-99) mg/dL ABG Lactic Acid (0.5-1.6) mmol/L Hemoglobin (11.4-16.0) gm/dL Sodium (137-145) mmol/L Creatinine (0.52-1.04) mg/dL Glucose (74-99) mg/dL POC Glucose (mg/dL) 112 H 150 H (75-99) mg/dL Calcium (8.4-10.2) mg/dL Ionized Calcium Brittany (4.5-5.3) mg/dL Magnesium (1.6-2.3) mg/dL Total Bilirubin (0.2-1.3) mg/dL AST (14-36) U/L Alkaline Phosphatase (38-126) U/L Total Protein (6.3-8.2) g/dL Albumin (3.5-5.0) g/dL Arterial Blood Potassium (3.4-4.5) mmol/L Arterial Blood Glucose (75-99) mg/dL Crossmatch 12/29/17 12/29/17 12/29/17 Range/Units 01:10 01:58 03:11 RBC (3.80-5.40) m/uL Hgb (11.4-16.0) gm/dL Hct (34.0-46.0) % RDW (11.5-15.5) % Plt Count (150-450) k/uL Lymphocytes # (1.0-4.8) k/uL PT (9.0-12.0) sec INR (<1.2) APTT (22.0-30.0) sec ABG pH (7.35-7.45) ABG pCO2 (35-45) mmHg ABG pO2 (83-108) mmHg ABG HCO3 (21-25) mmol/L ABG Total CO2 (19-24) mmol/L ABG O2 Saturation (94-97) % ABG Hematocrit (34.0-46.0) % ABG Sodium (135-146) mmol/L ABG Potassium (3.4-4.5) mmol/L ABG Ionized Calcium (4.5-5.3) mg/dL ABG Glucose (75-99) mg/dL ABG Lactic Acid (0.5-1.6) mmol/L Hemoglobin (11.4-16.0) gm/dL Sodium (137-145) mmol/L Creatinine (0.52-1.04) mg/dL Glucose (74-99) mg/dL POC Glucose (mg/dL) 143 H 123 H 111 H (75-99) mg/dL Calcium (8.4-10.2) mg/dL Ionized Calcium Brittany (4.5-5.3) mg/dL Magnesium (1.6-2.3) mg/dL Total Bilirubin (0.2-1.3) mg/dL AST (14-36) U/L Alkaline Phosphatase (38-126) U/L Total Protein (6.3-8.2) g/dL Albumin (3.5-5.0) g/dL Arterial Blood Potassium (3.4-4.5) mmol/L Arterial Blood Glucose (75-99) mg/dL Crossmatch 12/29/17 12/29/17 12/29/17 Range/Units 04:35 04:37 04:40 RBC 1.67 L (3.80-5.40) m/uL Hgb 5.2 L* (11.4-16.0) gm/dL Hct 15.5 L* (34.0-46.0) % RDW 15.9 H (11.5-15.5) % Plt Count 106 L (150-450) k/uL Lymphocytes # 0.5 L (1.0-4.8) k/uL PT (9.0-12.0) sec INR (<1.2) APTT (22.0-30.0) sec ABG pH (7.35-7.45) ABG pCO2 (35-45) mmHg ABG pO2 195 H (83-108) mmHg ABG HCO3 (21-25) mmol/L ABG Total CO2 26 H (19-24) mmol/L ABG O2 Saturation 99.9 H (94-97) % ABG Hematocrit (34.0-46.0) % ABG Sodium (135-146) mmol/L ABG Potassium (3.4-4.5) mmol/L ABG Ionized Calcium (4.5-5.3) mg/dL ABG Glucose (75-99) mg/dL ABG Lactic Acid (0.5-1.6) mmol/L Hemoglobin (11.4-16.0) gm/dL Sodium (137-145) mmol/L Creatinine (0.52-1.04) mg/dL Glucose (74-99) mg/dL POC Glucose (mg/dL) 112 H (75-99) mg/dL Calcium (8.4-10.2) mg/dL Ionized Calcium Brittany (4.5-5.3) mg/dL Magnesium (1.6-2.3) mg/dL Total Bilirubin (0.2-1.3) mg/dL AST (14-36) U/L Alkaline Phosphatase (38-126) U/L Total Protein (6.3-8.2) g/dL Albumin (3.5-5.0) g/dL Arterial Blood Potassium (3.4-4.5) mmol/L Arterial Blood Glucose (75-99) mg/dL Crossmatch 12/29/17 12/29/17 12/29/17 Range/Units 04:40 04:40 05:16 RBC (3.80-5.40) m/uL Hgb (11.4-16.0) gm/dL Hct (34.0-46.0) % RDW (11.5-15.5) % Plt Count (150-450) k/uL Lymphocytes # (1.0-4.8) k/uL PT 14.9 H (9.0-12.0) sec INR 1.6 H (<1.2) APTT 33.5 H (22.0-30.0) sec ABG pH (7.35-7.45) ABG pCO2 (35-45) mmHg ABG pO2 (83-108) mmHg ABG HCO3 (21-25) mmol/L ABG Total CO2 (19-24) mmol/L ABG O2 Saturation (94-97) % ABG Hematocrit (34.0-46.0) % ABG Sodium (135-146) mmol/L ABG Potassium (3.4-4.5) mmol/L ABG Ionized Calcium (4.5-5.3) mg/dL ABG Glucose (75-99) mg/dL ABG Lactic Acid (0.5-1.6) mmol/L Hemoglobin (11.4-16.0) gm/dL Sodium (137-145) mmol/L Creatinine (0.52-1.04) mg/dL Glucose (74-99) mg/dL POC Glucose (mg/dL) 119 H (75-99) mg/dL Calcium 7.7 L (8.4-10.2) mg/dL Ionized Calcium Brittany (4.5-5.3) mg/dL Magnesium (1.6-2.3) mg/dL Total Bilirubin (0.2-1.3) mg/dL AST 37 H (14-36) U/L Alkaline Phosphatase 22 L (38-126) U/L Total Protein 4.6 L (6.3-8.2) g/dL Albumin 3.1 L (3.5-5.0) g/dL Arterial Blood Potassium (3.4-4.5) mmol/L Arterial Blood Glucose (75-99) mg/dL Crossmatch 12/29/17 12/29/17 12/29/17 Range/Units 06:17 08:08 08:50 RBC (3.80-5.40) m/uL Hgb (11.4-16.0) gm/dL Hct (34.0-46.0) % RDW (11.5-15.5) % Plt Count (150-450) k/uL Lymphocytes # (1.0-4.8) k/uL PT (9.0-12.0) sec INR (<1.2) APTT (22.0-30.0) sec ABG pH (7.35-7.45) ABG pCO2 (35-45) mmHg ABG pO2 (83-108) mmHg ABG HCO3 (21-25) mmol/L ABG Total CO2 (19-24) mmol/L ABG O2 Saturation (94-97) % ABG Hematocrit (34.0-46.0) % ABG Sodium (135-146) mmol/L ABG Potassium (3.4-4.5) mmol/L ABG Ionized Calcium (4.5-5.3) mg/dL ABG Glucose (75-99) mg/dL ABG Lactic Acid (0.5-1.6) mmol/L Hemoglobin (11.4-16.0) gm/dL Sodium (137-145) mmol/L Creatinine (0.52-1.04) mg/dL Glucose (74-99) mg/dL POC Glucose (mg/dL) 129 H 131 H 130 H (75-99) mg/dL Calcium (8.4-10.2) mg/dL Ionized Calcium Brittany (4.5-5.3) mg/dL Magnesium (1.6-2.3) mg/dL Total Bilirubin (0.2-1.3) mg/dL AST (14-36) U/L Alkaline Phosphatase (38-126) U/L Total Protein (6.3-8.2) g/dL Albumin (3.5-5.0) g/dL Arterial Blood Potassium (3.4-4.5) mmol/L Arterial Blood Glucose (75-99) mg/dL Crossmatch 12/29/17 12/29/17 12/29/17 Range/Units 09:59 10:02 10:59 RBC 2.25 L (3.80-5.40) m/uL Hgb 7.2 L D (11.4-16.0) gm/dL Hct 20.9 L (34.0-46.0) % RDW 15.9 H (11.5-15.5) % Plt Count 105 L (150-450) k/uL Lymphocytes # 0.7 L (1.0-4.8) k/uL PT (9.0-12.0) sec INR (<1.2) APTT (22.0-30.0) sec ABG pH 7.30 L (7.35-7.45) ABG pCO2 51 H (35-45) mmHg ABG pO2 (83-108) mmHg ABG HCO3 (21-25) mmol/L ABG Total CO2 27 H (19-24) mmol/L ABG O2 Saturation 98.5 H (94-97) % ABG Hematocrit (34.0-46.0) % ABG Sodium (135-146) mmol/L ABG Potassium (3.4-4.5) mmol/L ABG Ionized Calcium (4.5-5.3) mg/dL ABG Glucose (75-99) mg/dL ABG Lactic Acid (0.5-1.6) mmol/L Hemoglobin (11.4-16.0) gm/dL Sodium (137-145) mmol/L Creatinine (0.52-1.04) mg/dL Glucose (74-99) mg/dL POC Glucose (mg/dL) 117 H (75-99) mg/dL Calcium (8.4-10.2) mg/dL Ionized Calcium Brittany (4.5-5.3) mg/dL Magnesium (1.6-2.3) mg/dL Total Bilirubin (0.2-1.3) mg/dL AST (14-36) U/L Alkaline Phosphatase (38-126) U/L Total Protein (6.3-8.2) g/dL Albumin (3.5-5.0) g/dL Arterial Blood Potassium (3.4-4.5) mmol/L Arterial Blood Glucose (75-99) mg/dL Crossmatch 12/29/17 12/29/17 12/29/17 Range/Units 11:03 12:37 12:47 RBC (3.80-5.40) m/uL Hgb (11.4-16.0) gm/dL Hct (34.0-46.0) % RDW (11.5-15.5) % Plt Count (150-450) k/uL Lymphocytes # (1.0-4.8) k/uL PT (9.0-12.0) sec INR (<1.2) APTT (22.0-30.0) sec ABG pH (7.35-7.45) ABG pCO2 (35-45) mmHg ABG pO2 115 H (83-108) mmHg ABG HCO3 (21-25) mmol/L ABG Total CO2 25 H (19-24) mmol/L ABG O2 Saturation 99.3 H (94-97) % ABG Hematocrit (34.0-46.0) % ABG Sodium (135-146) mmol/L ABG Potassium (3.4-4.5) mmol/L ABG Ionized Calcium (4.5-5.3) mg/dL ABG Glucose (75-99) mg/dL ABG Lactic Acid (0.5-1.6) mmol/L Hemoglobin (11.4-16.0) gm/dL Sodium (137-145) mmol/L Creatinine (0.52-1.04) mg/dL Glucose (74-99) mg/dL POC Glucose (mg/dL) 107 H 126 H (75-99) mg/dL Calcium (8.4-10.2) mg/dL Ionized Calcium Brittany (4.5-5.3) mg/dL Magnesium (1.6-2.3) mg/dL Total Bilirubin (0.2-1.3) mg/dL AST (14-36) U/L Alkaline Phosphatase (38-126) U/L Total Protein (6.3-8.2) g/dL Albumin (3.5-5.0) g/dL Arterial Blood Potassium (3.4-4.5) mmol/L Arterial Blood Glucose (75-99) mg/dL Crossmatch 12/29/17 12/29/17 12/29/17 Range/Units 13:17 13:53 14:14 RBC (3.80-5.40) m/uL Hgb (11.4-16.0) gm/dL Hct (34.0-46.0) % RDW (11.5-15.5) % Plt Count (150-450) k/uL Lymphocytes # (1.0-4.8) k/uL PT (9.0-12.0) sec INR (<1.2) APTT (22.0-30.0) sec ABG pH 7.34 L (7.35-7.45) ABG pCO2 (35-45) mmHg ABG pO2 65 L (83-108) mmHg ABG HCO3 (21-25) mmol/L ABG Total CO2 (19-24) mmol/L ABG O2 Saturation 93.3 L (94-97) % ABG Hematocrit (34.0-46.0) % ABG Sodium (135-146) mmol/L ABG Potassium (3.4-4.5) mmol/L ABG Ionized Calcium (4.5-5.3) mg/dL ABG Glucose (75-99) mg/dL ABG Lactic Acid (0.5-1.6) mmol/L Hemoglobin (11.4-16.0) gm/dL Sodium (137-145) mmol/L Creatinine (0.52-1.04) mg/dL Glucose (74-99) mg/dL POC Glucose (mg/dL) 126 H 126 H (75-99) mg/dL Calcium (8.4-10.2) mg/dL Ionized Calcium Brittany (4.5-5.3) mg/dL Magnesium (1.6-2.3) mg/dL Total Bilirubin (0.2-1.3) mg/dL AST (14-36) U/L Alkaline Phosphatase (38-126) U/L Total Protein (6.3-8.2) g/dL Albumin (3.5-5.0) g/dL Arterial Blood Potassium (3.4-4.5) mmol/L Arterial Blood Glucose (75-99) mg/dL Crossmatch 12/29/17 Range/Units 15:08 RBC (3.80-5.40) m/uL Hgb (11.4-16.0) gm/dL Hct (34.0-46.0) % RDW (11.5-15.5) % Plt Count (150-450) k/uL Lymphocytes # (1.0-4.8) k/uL PT (9.0-12.0) sec INR (<1.2) APTT (22.0-30.0) sec ABG pH (7.35-7.45) ABG pCO2 (35-45) mmHg ABG pO2 (83-108) mmHg ABG HCO3 (21-25) mmol/L ABG Total CO2 (19-24) mmol/L ABG O2 Saturation (94-97) % ABG Hematocrit (34.0-46.0) % ABG Sodium (135-146) mmol/L ABG Potassium (3.4-4.5) mmol/L ABG Ionized Calcium (4.5-5.3) mg/dL ABG Glucose (75-99) mg/dL ABG Lactic Acid (0.5-1.6) mmol/L Hemoglobin (11.4-16.0) gm/dL Sodium (137-145) mmol/L Creatinine (0.52-1.04) mg/dL Glucose (74-99) mg/dL POC Glucose (mg/dL) 132 H (75-99) mg/dL Calcium (8.4-10.2) mg/dL Ionized Calcium Brittany (4.5-5.3) mg/dL Magnesium (1.6-2.3) mg/dL Total Bilirubin (0.2-1.3) mg/dL AST (14-36) U/L Alkaline Phosphatase (38-126) U/L Total Protein (6.3-8.2) g/dL Albumin (3.5-5.0) g/dL Arterial Blood Potassium (3.4-4.5) mmol/L Arterial Blood Glucose (75-99) mg/dL Crossmatch - Imaging and Cardiology Chest x-ray: report reviewed, image reviewed Assessment and Plan (1) Hypertension Current Visit: Yes Status: Chronic Code(s): I10 - ESSENTIAL (PRIMARY) HYPERTENSION SNOMED Code(s): 11195668 (2) Tobacco dependence in remission Current Visit: No Status: Resolved Code(s): F17.201 - NICOTINE DEPENDENCE, UNSPECIFIED, IN REMISSION SNOMED Code(s): 370197161 (3) History of pulmonary embolism Current Visit: No Status: Resolved Code(s): Z86.711 - PERSONAL HISTORY OF PULMONARY EMBOLISM SNOMED Code(s): 045847589 (4) Peripheral vascular disease Current Visit: Yes Status: Chronic Code(s): I73.9 - PERIPHERAL VASCULAR DISEASE, UNSPECIFIED SNOMED Code(s): 908662614 (5) CAD (coronary artery disease) Current Visit: Yes Status: Chronic Code(s): I25.10 - ATHSCL HEART DISEASE OF [place] CORONARY ARTERY W/O ANG PCTRS SNOMED Code(s): 27757575 Plan: 1. Continue low-dose aspirin, Plavix, statin, beta jaida. Will increase beta jaida therapy as tolerated. 2. Wean O2 as tolerated. Once off BiPAP, encourage incentive spirometry 10 times every hour while awake. 3. Bronchodilators, steroids per pulmonology. 4. Increase activity, place bed in chair mode, out of bed when off BiPAP. PT/ OT/cardiac rehab following. 5. Will monitor daily labs and x-rays. No further blood transfusions at this time. 6. Lasix 20 mg IV push given today. 7. Pain control with current medication regimen. 8. GI prophylaxis with Protonix. DVT prophylaxis with subcu heparin, SCDs. 9. More recommendations to follow. Time with Patient: Greater than 30
--- NOTE | 2017-12-29 15:55 | P.PN ---
Subjective This patient is status post coronary artery bypass surgery. Patient was extubated this morning. Is currently on BiPAP his and is hemodynamically stable. Since received 2 units of packed cells and 2 units of fresh frozen plasma yesterday EKG does not show any acute ischemic changes. Objective - Vital Signs Vital signs: Vital Signs Temp 98.1 F 12/29/17 12:30 Pulse 69 12/29/17 15:40 Resp 12 12/29/17 15:00 BP 140/71 12/29/17 13:30 Pulse Ox 97 12/29/17 15:00 Intake & Output 12/28/17 12/29/17 12/29/17 18:59 06:59 18:59 Intake Total 1100 0221.741 9110.470 Output Total 2275 1405 1310 Balance -1175 201.335 -291.530 Weight 66.4 kg 74.3 kg 74.3 kg Intake: IV 270 838 541 CO/CI 60 130 10 Lactated Ringers 1,000 ml 150 600 450 @ 20 mls/hr IV .Q24H [facility]ENN[facility] Rx#:[id number] Pressure Bags 27 108 81 Intake, IV Titration 562.335 167.470 Amount ACETAMINOPHEN IV (For NPO 200 ) 1,000 mg In Empty Bag 1 bag @ 400 mls/hr IVPB Q6HR JENN[facility]ER Rx#:[id number] Albumin Human 5% 250 ml 250 In Empty Bag 1 bag @ 250 mls/hr IVPB Q1HR PRN Rx#: [id number] Dexmedetomidine/0.9% NaCl 20.425 (Pmx) 400 mcg In Empty Bag 1 bag @ Titrate IV . Q0M JENNIFER Rx#:[id number] Insulin Regular 100 unit 13.541 8.217 In Sodium Chloride 0.9% 100 ml @ Per Protocol IV .Q0M JENNIFER Rx#:[id number] Nitroglycerin-D5w Pmx 50 20.675 mg In Dextrose/Water 1 250ml.bag @ 5 MCG/MIN 1.5 mls/hr IV .Q24H JENNIFER Rx#: [id number] Norepinephrine 16 mg In 1.822 Sodium Chloride 0.9% 250 ml @ Titrate IV .Q0M JENN[facility]ER Rx#:[id number] Norepinephrine 4 mg In 97.50 56.438 Sodium Chloride 0.9% 250 ml @ Titrate IV .Q0M JENN[facility]ER Rx#:[id number] Propofol 1,000 mg In 1.294 59.893 Empty Bag 1 bag @ Titrate IV .Q0M JENNIFER Rx#: [id number] Blood Product 830 206 310 Ffp 24 Cp2d Unit 206 [id number] Ffp 24 Cp2d Unit 210 [id number] Rc As-1 Unit 310 [id number] Rc As-3 Unit 0 310 [id number] Rc Pheresis 2 As3 Unit 310 [id number] Output: Chest Tube Drainage 760 805 610 Left Pleural 300 430 450 Mediastinal 460 375 160 Drainage 30 70 Left Calf 30 70 Urine 685 530 700 Estimated Blood Loss 800 Other: Voiding Method Indwelling Catheter Indwelling Catheter Indwelling Catheter ABP, PAP, CO, CI - Last Documented Arterial Blood Pressure 142/56 Pulmonary Artery Pressure 32/19 Cardiac Output 3.2 Cardiac Index 1.9 - Exam Patient is not in any acute respiratory distress sees on BiPAP currently. Patient's vital signs are reviewed. The patient is alert awake and in no acute distress. HEENT negative. Neck-supple no increase in JVP noted no carotid bruits noted. Chest-symmetrical. Heart-first and second heart sounds are normal. No S3 or S4 is noted. No significant murmurs are noted. Lungs bilateral good at entry is noted. Bilateral scattered wheezes noted. Abdomen-soft. Liver and spleen are not enlarged. The bowel sounds are normal. No tenderness noted Extremities-peripheral pulses since are 2+. No significant leg edema noted. Neuro-no significant gross abnormality noted. - Labs CBC & Chem 7: 12/29/17 10:02 12/29/17 10:02 Labs: Abnormal Lab Results - Last 24 Hours (Table) 12/22/17 12/28/17 12/28/17 Range/Units 08:56 15:58 15:58 RBC 1.83 L (3.80-5.40) m/uL Hgb 5.8 L* D (11.4-16.0) gm/dL Hct 17.4 L* (34.0-46.0) % RDW (11.5-15.5) % Plt Count 82 L D (150-450) k/uL Lymphocytes # 0.9 L (1.0-4.8) k/uL PT (9.0-12.0) sec INR (<1.2) APTT (22.0-30.0) sec ABG pH (7.35-7.45) ABG pCO2 (35-45) mmHg ABG pO2 (83-108) mmHg ABG HCO3 (21-25) mmol/L ABG Total CO2 (19-24) mmol/L ABG O2 Saturation (94-97) % Sodium 136 L (137-145) mmol/L Creatinine 0.44 L (0.52-1.04) mg/dL Glucose 102 H (74-99) mg/dL POC Glucose (mg/dL) (75-99) mg/dL Calcium 7.5 L (8.4-10.2) mg/dL Ionized Calcium Brittany 4.3 L (4.5-5.3) mg/dL Magnesium 2.5 H (1.6-2.3) mg/dL Total Bilirubin (0.2-1.3) mg/dL AST (14-36) U/L Alkaline Phosphatase <20 L (38-126) U/L Total Protein 4.6 L (6.3-8.2) g/dL Albumin 3.2 L (3.5-5.0) g/dL Crossmatch See Detail 12/28/17 12/28/17 12/28/17 Range/Units 15:58 15:59 16:29 RBC (3.80-5.40) m/uL Hgb (11.4-16.0) gm/dL Hct (34.0-46.0) % RDW (11.5-15.5) % Plt Count (150-450) k/uL Lymphocytes # (1.0-4.8) k/uL PT 22.9 H (9.0-12.0) sec INR 2.5 H (<1.2) APTT 61.0 H (22.0-30.0) sec ABG pH 7.32 L (7.35-7.45) ABG pCO2 47 H (35-45) mmHg ABG pO2 >400 H (83-108) mmHg ABG HCO3 (21-25) mmol/L ABG Total CO2 25 H (19-24) mmol/L ABG O2 Saturation 100.0 H (94-97) % Sodium (137-145) mmol/L Creatinine (0.52-1.04) mg/dL Glucose (74-99) mg/dL POC Glucose (mg/dL) 124 H (75-99) mg/dL Calcium (8.4-10.2) mg/dL Ionized Calcium Brittany (4.5-5.3) mg/dL Magnesium (1.6-2.3) mg/dL Total Bilirubin (0.2-1.3) mg/dL AST (14-36) U/L Alkaline Phosphatase (38-126) U/L Total Protein (6.3-8.2) g/dL Albumin (3.5-5.0) g/dL Crossmatch 12/28/17 12/28/17 12/28/17 Range/Units 17:08 18:10 19:05 RBC (3.80-5.40) m/uL Hgb (11.4-16.0) gm/dL Hct (34.0-46.0) % RDW (11.5-15.5) % Plt Count (150-450) k/uL Lymphocytes # (1.0-4.8) k/uL PT (9.0-12.0) sec INR (<1.2) APTT (22.0-30.0) sec ABG pH (7.35-7.45) ABG pCO2 (35-45) mmHg ABG pO2 (83-108) mmHg ABG HCO3 (21-25) mmol/L ABG Total CO2 (19-24) mmol/L ABG O2 Saturation (94-97) % Sodium (137-145) mmol/L Creatinine (0.52-1.04) mg/dL Glucose (74-99) mg/dL POC Glucose (mg/dL) 102 H 131 H 148 H (75-99) mg/dL Calcium (8.4-10.2) mg/dL Ionized Calcium Brittany (4.5-5.3) mg/dL Magnesium (1.6-2.3) mg/dL Total Bilirubin (0.2-1.3) mg/dL AST (14-36) U/L Alkaline Phosphatase (38-126) U/L Total Protein (6.3-8.2) g/dL Albumin (3.5-5.0) g/dL Crossmatch 12/28/17 12/28/17 12/28/17 Range/Units 19:58 20:47 20:47 RBC (3.80-5.40) m/uL Hgb (11.4-16.0) gm/dL Hct (34.0-46.0) % RDW (11.5-15.5) % Plt Count (150-450) k/uL Lymphocytes # (1.0-4.8) k/uL PT 16.3 H (9.0-12.0) sec INR 1.8 H (<1.2) APTT (22.0-30.0) sec ABG pH (7.35-7.45) ABG pCO2 (35-45) mmHg ABG pO2 (83-108) mmHg ABG HCO3 (21-25) mmol/L ABG Total CO2 (19-24) mmol/L ABG O2 Saturation (94-97) % Sodium 135 L (137-145) mmol/L Creatinine 0.46 L (0.52-1.04) mg/dL Glucose 128 H (74-99) mg/dL POC Glucose (mg/dL) 155 H (75-99) mg/dL Calcium 7.7 L (8.4-10.2) mg/dL Ionized Calcium Brittany (4.5-5.3) mg/dL Magnesium (1.6-2.3) mg/dL Total Bilirubin 1.8 H (0.2-1.3) mg/dL AST (14-36) U/L Alkaline Phosphatase 20 L (38-126) U/L Total Protein 4.7 L (6.3-8.2) g/dL Albumin 3.2 L (3.5-5.0) g/dL Crossmatch 12/28/17 12/28/17 12/28/17 Range/Units 20:47 20:53 22:09 RBC 1.99 L (3.80-5.40) m/uL Hgb 6.4 L* (11.4-16.0) gm/dL Hct 18.3 L* (34.0-46.0) % RDW (11.5-15.5) % Plt Count 98 L (150-450) k/uL Lymphocytes # 0.5 L (1.0-4.8) k/uL PT (9.0-12.0) sec INR (<1.2) APTT (22.0-30.0) sec ABG pH (7.35-7.45) ABG pCO2 (35-45) mmHg ABG pO2 (83-108) mmHg ABG HCO3 (21-25) mmol/L ABG Total CO2 (19-24) mmol/L ABG O2 Saturation (94-97) % Sodium (137-145) mmol/L Creatinine (0.52-1.04) mg/dL Glucose (74-99) mg/dL POC Glucose (mg/dL) 148 H 122 H (75-99) mg/dL Calcium (8.4-10.2) mg/dL Ionized Calcium Brittany (4.5-5.3) mg/dL Magnesium (1.6-2.3) mg/dL Total Bilirubin (0.2-1.3) mg/dL AST (14-36) U/L Alkaline Phosphatase (38-126) U/L Total Protein (6.3-8.2) g/dL Albumin (3.5-5.0) g/dL Crossmatch 12/28/17 12/28/17 12/29/17 Range/Units 23:00 23:14 00:13 RBC (3.80-5.40) m/uL Hgb (11.4-16.0) gm/dL Hct (34.0-46.0) % RDW (11.5-15.5) % Plt Count (150-450) k/uL Lymphocytes # (1.0-4.8) k/uL PT (9.0-12.0) sec INR (<1.2) APTT (22.0-30.0) sec ABG pH 7.21 L (7.35-7.45) ABG pCO2 64 H (35-45) mmHg ABG pO2 124 H (83-108) mmHg ABG HCO3 26 H (21-25) mmol/L ABG Total CO2 28 H (19-24) mmol/L ABG O2 Saturation 99.1 H (94-97) % Sodium (137-145) mmol/L Creatinine (0.52-1.04) mg/dL Glucose (74-99) mg/dL POC Glucose (mg/dL) 112 H 150 H (75-99) mg/dL Calcium (8.4-10.2) mg/dL Ionized Calcium Brittany (4.5-5.3) mg/dL Magnesium (1.6-2.3) mg/dL Total Bilirubin (0.2-1.3) mg/dL AST (14-36) U/L Alkaline Phosphatase (38-126) U/L Total Protein (6.3-8.2) g/dL Albumin (3.5-5.0) g/dL Crossmatch 12/29/17 12/29/17 12/29/17 Range/Units 01:08 01:10 01:58 RBC (3.80-5.40) m/uL Hgb (11.4-16.0) gm/dL Hct (34.0-46.0) % RDW (11.5-15.5) % Plt Count (150-450) k/uL Lymphocytes # (1.0-4.8) k/uL PT (9.0-12.0) sec INR (<1.2) APTT (22.0-30.0) sec ABG pH 7.18 L* (7.35-7.45) ABG pCO2 66 H (35-45) mmHg ABG pO2 (83-108) mmHg ABG HCO3 (21-25) mmol/L ABG Total CO2 27 H (19-24) mmol/L ABG O2 Saturation 98.3 H (94-97) % Sodium (137-145) mmol/L Creatinine (0.52-1.04) mg/dL Glucose (74-99) mg/dL POC Glucose (mg/dL) 143 H 123 H (75-99) mg/dL Calcium (8.4-10.2) mg/dL Ionized Calcium Brittany (4.5-5.3) mg/dL Magnesium (1.6-2.3) mg/dL Total Bilirubin (0.2-1.3) mg/dL AST (14-36) U/L Alkaline Phosphatase (38-126) U/L Total Protein (6.3-8.2) g/dL Albumin (3.5-5.0) g/dL Crossmatch 12/29/17 12/29/17 12/29/17 Range/Units 03:11 04:35 04:37 RBC (3.80-5.40) m/uL Hgb (11.4-16.0) gm/dL Hct (34.0-46.0) % RDW (11.5-15.5) % Plt Count (150-450) k/uL Lymphocytes # (1.0-4.8) k/uL PT (9.0-12.0) sec INR (<1.2) APTT (22.0-30.0) sec ABG pH (7.35-7.45) ABG pCO2 (35-45) mmHg ABG pO2 195 H (83-108) mmHg ABG HCO3 (21-25) mmol/L ABG Total CO2 26 H (19-24) mmol/L ABG O2 Saturation 99.9 H (94-97) % Sodium (137-145) mmol/L Creatinine (0.52-1.04) mg/dL Glucose (74-99) mg/dL POC Glucose (mg/dL) 111 H 112 H (75-99) mg/dL Calcium (8.4-10.2) mg/dL Ionized Calcium Brittany (4.5-5.3) mg/dL Magnesium (1.6-2.3) mg/dL Total Bilirubin (0.2-1.3) mg/dL AST (14-36) U/L Alkaline Phosphatase (38-126) U/L Total Protein (6.3-8.2) g/dL Albumin (3.5-5.0) g/dL Crossmatch 12/29/17 12/29/17 12/29/17 Range/Units 04:40 04:40 04:40 RBC 1.67 L (3.80-5.40) m/uL Hgb 5.2 L* (11.4-16.0) gm/dL Hct 15.5 L* (34.0-46.0) % RDW 15.9 H (11.5-15.5) % Plt Count 106 L (150-450) k/uL Lymphocytes # 0.5 L (1.0-4.8) k/uL PT 14.9 H (9.0-12.0) sec INR 1.6 H (<1.2) APTT 33.5 H (22.0-30.0) sec ABG pH (7.35-7.45) ABG pCO2 (35-45) mmHg ABG pO2 (83-108) mmHg ABG HCO3 (21-25) mmol/L ABG Total CO2 (19-24) mmol/L ABG O2 Saturation (94-97) % Sodium (137-145) mmol/L Creatinine (0.52-1.04) mg/dL Glucose (74-99) mg/dL POC Glucose (mg/dL) (75-99) mg/dL Calcium 7.7 L (8.4-10.2) mg/dL Ionized Calcium Brittany (4.5-5.3) mg/dL Magnesium (1.6-2.3) mg/dL Total Bilirubin (0.2-1.3) mg/dL AST 37 H (14-36) U/L Alkaline Phosphatase 22 L (38-126) U/L Total Protein 4.6 L (6.3-8.2) g/dL Albumin 3.1 L (3.5-5.0) g/dL Crossmatch 12/29/17 12/29/17 12/29/17 Range/Units 05:16 06:17 08:08 RBC (3.80-5.40) m/uL Hgb (11.4-16.0) gm/dL Hct (34.0-46.0) % RDW (11.5-15.5) % Plt Count (150-450) k/uL Lymphocytes # (1.0-4.8) k/uL PT (9.0-12.0) sec INR (<1.2) APTT (22.0-30.0) sec ABG pH (7.35-7.45) ABG pCO2 (35-45) mmHg ABG pO2 (83-108) mmHg ABG HCO3 (21-25) mmol/L ABG Total CO2 (19-24) mmol/L ABG O2 Saturation (94-97) % Sodium (137-145) mmol/L Creatinine (0.52-1.04) mg/dL Glucose (74-99) mg/dL POC Glucose (mg/dL) 119 H 129 H 131 H (75-99) mg/dL Calcium (8.4-10.2) mg/dL Ionized Calcium Brittany (4.5-5.3) mg/dL Magnesium (1.6-2.3) mg/dL Total Bilirubin (0.2-1.3) mg/dL AST (14-36) U/L Alkaline Phosphatase (38-126) U/L Total Protein (6.3-8.2) g/dL Albumin (3.5-5.0) g/dL Crossmatch 12/29/17 12/29/17 12/29/17 Range/Units 08:50 09:59 10:02 RBC 2.25 L (3.80-5.40) m/uL Hgb 7.2 L D (11.4-16.0) gm/dL Hct 20.9 L (34.0-46.0) % RDW 15.9 H (11.5-15.5) % Plt Count 105 L (150-450) k/uL Lymphocytes # 0.7 L (1.0-4.8) k/uL PT (9.0-12.0) sec INR (<1.2) APTT (22.0-30.0) sec ABG pH (7.35-7.45) ABG pCO2 (35-45) mmHg ABG pO2 (83-108) mmHg ABG HCO3 (21-25) mmol/L ABG Total CO2 (19-24) mmol/L ABG O2 Saturation (94-97) % Sodium (137-145) mmol/L Creatinine (0.52-1.04) mg/dL Glucose (74-99) mg/dL POC Glucose (mg/dL) 130 H 117 H (75-99) mg/dL Calcium (8.4-10.2) mg/dL Ionized Calcium Brittany (4.5-5.3) mg/dL Magnesium (1.6-2.3) mg/dL Total Bilirubin (0.2-1.3) mg/dL AST (14-36) U/L Alkaline Phosphatase (38-126) U/L Total Protein (6.3-8.2) g/dL Albumin (3.5-5.0) g/dL Crossmatch 12/29/17 12/29/17 12/29/17 Range/Units 10:59 11:03 12:37 RBC (3.80-5.40) m/uL Hgb (11.4-16.0) gm/dL Hct (34.0-46.0) % RDW (11.5-15.5) % Plt Count (150-450) k/uL Lymphocytes # (1.0-4.8) k/uL PT (9.0-12.0) sec INR (<1.2) APTT (22.0-30.0) sec ABG pH 7.30 L (7.35-7.45) ABG pCO2 51 H (35-45) mmHg ABG pO2 (83-108) mmHg ABG HCO3 (21-25) mmol/L ABG Total CO2 27 H (19-24) mmol/L ABG O2 Saturation 98.5 H (94-97) % Sodium (137-145) mmol/L Creatinine (0.52-1.04) mg/dL Glucose (74-99) mg/dL POC Glucose (mg/dL) 107 H 126 H (75-99) mg/dL Calcium (8.4-10.2) mg/dL Ionized Calcium Brittany (4.5-5.3) mg/dL Magnesium (1.6-2.3) mg/dL Total Bilirubin (0.2-1.3) mg/dL AST (14-36) U/L Alkaline Phosphatase (38-126) U/L Total Protein (6.3-8.2) g/dL Albumin (3.5-5.0) g/dL Crossmatch 12/29/17 12/29/17 12/29/17 Range/Units 12:47 13:17 13:53 RBC (3.80-5.40) m/uL Hgb (11.4-16.0) gm/dL Hct (34.0-46.0) % RDW (11.5-15.5) % Plt Count (150-450) k/uL Lymphocytes # (1.0-4.8) k/uL PT (9.0-12.0) sec INR (<1.2) APTT (22.0-30.0) sec ABG pH 7.34 L (7.35-7.45) ABG pCO2 (35-45) mmHg ABG pO2 115 H 65 L (83-108) mmHg ABG HCO3 (21-25) mmol/L ABG Total CO2 25 H (19-24) mmol/L ABG O2 Saturation 99.3 H 93.3 L (94-97) % Sodium (137-145) mmol/L Creatinine (0.52-1.04) mg/dL Glucose (74-99) mg/dL POC Glucose (mg/dL) 126 H (75-99) mg/dL Calcium (8.4-10.2) mg/dL Ionized Calcium Brittany (4.5-5.3) mg/dL Magnesium (1.6-2.3) mg/dL Total Bilirubin (0.2-1.3) mg/dL AST (14-36) U/L Alkaline Phosphatase (38-126) U/L Total Protein (6.3-8.2) g/dL Albumin (3.5-5.0) g/dL Crossmatch 12/29/17 12/29/17 Range/Units 14:14 15:08 RBC (3.80-5.40) m/uL Hgb (11.4-16.0) gm/dL Hct (34.0-46.0) % RDW (11.5-15.5) % Plt Count (150-450) k/uL Lymphocytes # (1.0-4.8) k/uL PT (9.0-12.0) sec INR (<1.2) APTT (22.0-30.0) sec ABG pH (7.35-7.45) ABG pCO2 (35-45) mmHg ABG pO2 (83-108) mmHg ABG HCO3 (21-25) mmol/L ABG Total CO2 (19-24) mmol/L ABG O2 Saturation (94-97) % Sodium (137-145) mmol/L Creatinine (0.52-1.04) mg/dL Glucose (74-99) mg/dL POC Glucose (mg/dL) 126 H 132 H (75-99) mg/dL Calcium (8.4-10.2) mg/dL Ionized Calcium Brittany (4.5-5.3) mg/dL Magnesium (1.6-2.3) mg/dL Total Bilirubin (0.2-1.3) mg/dL AST (14-36) U/L Alkaline Phosphatase (38-126) U/L Total Protein (6.3-8.2) g/dL Albumin (3.5-5.0) g/dL Crossmatch Assessment and Plan Assessment: This patient is status post coronary artery bypass surgery. Patient is not in any acute respiratory distress. Currently see is on BiPAP. Obese arrhythmias are noted is stable hemodynamically.
[2017-12-29 16:11] LABS: Glucose,Whole Blood 123 mg/dL (75-99)
[2017-12-29] MEDS: methylPREDNISolone SOD SUCCI 125 MG/2 ML VIAL IV SCH ×2 (18:07→23:18)
[2017-12-29] MEDS: CLEVIDIPINE BUTYRATE 25 MG in EMPTY BAG 1 BAG IV SCH (18:07)
[2017-12-29 18:19] LABS: Glucose,Whole Blood 104 mg/dL (75-99)
[2017-12-29 19:16] LABS: Basophils % (A) 0 %; Eosinophils % (A) 1 %; Lymphocytes # (A) 0.5 k/uL (1.0-4.8); Lymphocytes % (A) 7 %; MCH 30.8 pg (25.0-35.0); MCHC 33.7 g/dL (31.0-37.0); MCV 91.4 fL (80.0-100.0); Mean Platelet Volume 7.4; Monocytes # (A) 0.3 k/uL (0-1.0); Monocytes % (A) 4 %; Neutrophils % (A) 88 %; RBC 1.96 m/uL (3.80-5.40); RDW 15.8 % (11.5-15.5); WBC 6.9 k/uL (3.8-10.6)
[2017-12-29 19:23] LABS: HCT 17.9 % (34.0-46.0); HGB 6.1 gm/dL (11.4-16.0)
[2017-12-29] MEDS: BUDESONIDE 0.5 MG/2 ML NEBU INHALATION SCH (20:10)
[2017-12-29 20:11] LABS: Anisocytosis (M) Present; Hypochromasia (M) Present; Platelet Count 86 k/uL (150-450)
[2017-12-29 20:56] LABS: Glucose,Whole Blood 115 mg/dL (75-99)
[2017-12-29] MEDS: SENNOSIDES-DOCUSATE SODIUM 1 EACH TAB PO SCH (21:11)
[2017-12-29] MEDS: METOPROLOL TARTRATE 5 MG/5 ML VIAL IVP SCH ×2 (21:13→23:19)
[2017-12-29 22:33] LABS: Glucose,Whole Blood 111 mg/dL (75-99)
[2017-12-29 23:25] LABS: Glucose,Whole Blood 124 mg/dL (75-99)
[2017-12-30] MEDS: CLEVIDIPINE BUTYRATE 25 MG in EMPTY BAG 1 BAG IV SCH
[2017-12-30 00:07] LABS: Glucose,Whole Blood 122 mg/dL (75-99)
[2017-12-30 01:52] LABS: Glucose,Whole Blood 158 mg/dL (75-99)
[2017-12-30 03:41] LABS: Glucose,Whole Blood 155 mg/dL (75-99)
[2017-12-30 04:17] LABS: Ionized Calcium 5.1 mg/dL (4.5-5.3)
[2017-12-30 04:21] LABS: Glucose,Whole Blood 141 mg/dL (75-99)
[2017-12-30 04:26] LABS: ALT 29 U/L (9-52); AST 60 U/L (14-36); Alkaline Phosphatase 27 U/L (38-126); Anion Gap 6 mmol/L; Basophils % (A) 0 %; Blood Urea Nitrogen 17 mg/dL (7-17); Calcium 8.6 mg/dL (8.4-10.2); Carbon Dioxide 24 mmol/L (22-30); Chloride 107 mmol/L (98-107); Eosinophils % (A) 0 %; Glucose 137 mg/dL (74-99); HCT 21.2 % (34.0-46.0); HGB 7.4 gm/dL (11.4-16.0); Lymphocytes # (A) 0.6 k/uL (1.0-4.8); Lymphocytes % (A) 7 %; MCH 32.3 pg (25.0-35.0); MCHC 34.9 g/dL (31.0-37.0); MCV 92.7 fL (80.0-100.0); Magnesium 2.2 mg/dL (1.6-2.3); Mean Platelet Volume 7.3; Monocytes # (A) 0.3 k/uL (0-1.0); Monocytes % (A) 3 %; Neutrophils # (A) 7.3 k/uL (1.3-7.7); Neutrophils % (A) 89 %; Potassium 3.9 mmol/L (3.5-5.1); RBC 2.29 m/uL (3.80-5.40); RDW 15.1 % (11.5-15.5); Sodium 137 mmol/L (137-145); Total Bilirubin 0.5 mg/dL (0.2-1.3); Total Protein 4.8 g/dL (6.3-8.2); WBC 8.2 k/uL (3.8-10.6)
[2017-12-30 04:49] LABS: Platelet Count 82 k/uL (150-450)
[2017-12-30 05:37] LABS: Glucose,Whole Blood 123 mg/dL (75-99)
[2017-12-30 06:14] LABS: Glucose,Whole Blood 118 mg/dL (75-99)
[2017-12-30 07:03] LABS: Glucose,Whole Blood 118 mg/dL (75-99)
[2017-12-30 07:16] LABS: ABG Base Excess -0.9 mmol/L; ABG HCO3 24 mmol/L (21-25); ABG Oxygen Saturation 99.3 % (94-97); ABG PCO2 39 mmHg (35-45); ABG PO2 124 mmHg (83-108); ABG TCO2 25 mmol/L (19-24)
[2017-12-30] MEDS: IPRATROPIUM-ALBUTEROL 3 ML NEB INHALATION SCH ×4 (07:23→19:01)
[2017-12-30] MEDS: BUDESONIDE 0.5 MG/2 ML NEBU INHALATION SCH ×2 (07:23→19:01)
[2017-12-30] MEDS: methylPREDNISolone SOD SUCCI 125 MG/2 ML VIAL IV SCH ×4 (07:42→23:39)
[2017-12-30] MEDS: METOPROLOL TARTRATE 5 MG/5 ML VIAL IVP SCH (07:42)
[2017-12-30] MEDS: FORMOTEROL FUMARATE 20 MCG/2 ML NEBU INHALATION SCH ×2 (08:04→19:01)
[2017-12-30] MEDS: PANTOPRAZOLE 40 MG/10 ML VIAL IVP SCH (08:05)
[2017-12-30] MEDS: buPROPion 75 MG TAB PO SCH (08:06)
[2017-12-30] MEDS: LEVOTHYROXINE 25 MCG TAB PO SCH (08:06)
[2017-12-30] MEDS: ASPIRIN 81 MG PO SCH (08:06)
[2017-12-30] MEDS: ATORVASTATIN 40 MG TAB PO SCH (08:06)
[2017-12-30] MEDS: MUPIROCIN 2% OINT 22 GM TUBE NASAL SCH ×2 (08:06→23:40)
[2017-12-30] MEDS: HEPARIN SODIUM,PORCINE 5,000 UNIT/ML 1 ML VIAL SQ SCH ×3 (08:06→23:39)
[2017-12-30] MEDS: CLOPIDOGREL 75 MG TAB PO SCH (08:06)
--- NOTE | 2017-12-30 08:26 | P.PN ---
Subjective Progress Note Date: 12/30/17 This is a 77-year-old female patient, known history of COPD with a preop FEV1 of 70% of predicted, and addition to coronary artery disease, peripheral vascular disease and hypertension, who was experiencing symptoms of exertional dyspnea and angina. She underwent stress test and she was found to have reversible ischemia and based on that the patient underwent a cardiac catheterization and she was found to have extreme calcified right and left coronary arteries, severe triple-vessel disease, severe disease involving the proximal RCA, severe disease involving the ostial circumflex and severe disease involving the ostial left anterior descending coronary artery. Based on this, the patient was referred for bypass surgery and the patient underwent three- vessel bypass with LOPES to LAD. Preop echocardiogram showed a preserved LV function with an ejection fraction of 55-60%. The patient has mild concentric left ventricular hypertrophy. I'm seeing this patient immediately after she arrived to the intensive care unit. She is sedated, comfortable likely distress. She is on a mechanical ventilator. She is an assist-control mode of ventilation, at a rate of 12, tidal volume of 400 with an FiO2 of 100% and PEEP of 5. Chest x-ray showed adequate expansion of both lungs. The patient is to mediastinal and 1 pleural chest tube on the left. Output is minimal at this point. There is no evidence of any air leak. There is no evidence of pneumothorax. The the blood gas showed a pH of 7.31 with a pCO2 of 46 and FiO2 is more than 400. Based on these results, increased respiratory rate up to 18. And I also drop the FiO2 down to 50%. She is producing adequate amount of urine output. She arrived to the ICU from the operating room with 12 mics of levo fed and currently she is off pressors. Cardiac output is at 2.6 with an index of 4.4. Pulmonary artery pressures are nonelevated. On 12/29/2017, the patient is postop day #1. The patient was kept intubated and mechanically ventilated overnight as the patient was having issues with increased output from the chest tubes, anemia, low cardiac output and difficulties with her weaning parameters overnight, the patient was given a total of 2 units of packed RBC 4 hemoglobin of 5.2. Subsequent hemoglobin came up to 6.4 and following that was up down to 5.8. The patient was given an additional 2 units of packed RBC this morning. Doppler from the chest tubes have decline. Overall output has been 800 mL of the mediastinal chest tubes and at times cc from the pleural chest tube as the patient arrived from the operating room. The patient was also given fresh frozen plasma total of 2 units. The patient was kept sedated with Diprivan and she remained calm and comfortable. There were 2 attempts to wean this patient a mechanical ventilator overnight. Her weaning parameters of borderline. Subsequent blood gases showed respiratory acidosis and I did not feel comfortable extubating this patient. Based on this, the patient was kept intubated on mechanical ventilator throughout the night. This morning, following transfusion with 2 units of packed RBC, the patient seemed to hemodynamically stable and she was doing okay. As such she was taken off the sedation and she was given a spelled his breathing trial with a pressure support of 5 and a PEEP of 5. His subsequent blood gases showed a mild component of respiratory acidosis with pCO2 of 50 and pH of 7.30. At that point, the patient was awake and she was following commands. She did not show any signs of respiratory distress. I decide to extubate this patient to a nasal cannula. Postextubation, the patient was followed up very closely. She was noted to bronchospastic and wheezy. Based on that, she was given IV Solu-Medrol. Following that she was placed on a BiPAP at a pressure of 14/5 cm of water with an FiO2 of 50%. The most recent blood gases showed a pH of 7.34 with a pCO2 of 42 and pO2 of 65 and this was done and FiO2 of 40%. The patient was somewhat restless and was getting agitated in bed. Based on that, I put her on Precedex and currently it is at 0.4 g per KG per hour. The chest x-ray from earlier this morning showed small better pleural effusion. There was cardiomegaly. [place]-Court catheter was in place. Rest of the chest were all in place. There was some limited bibasilar consolidation. She is afebrile. She is hemodynamically stable and currently the cardiac index is above 2.. Most recent hemoglobin is at 7.2. She is afebrile. She is on no pressors at this point in time. Cardiac rhythm is sinus. On 12/30/2017 the patient is postop day #2. As noted, and as mentioned earlier , the patient was extubated yesterday and postextubation the patient became bronchospastic and wheezy and she had significant respiratory distress. At that point she was started on BiPAP for respiratory support at a pressure of 14/ 6 cm of water. FiO2 was kept at 50%. The patient had some difficulties initially to tolerate the BiPAP. She was restarted on Precedex and the dose was titrated to control her agitation. With these changes, she did extremely well and overnight she was kept on a BiPAP and in the center she was placed on a combination of bronchodilators steroids which optimize her COPD exacerbation. This morning, the patient was taken off the BiPAP and she was placed on 5 L of oxygen nasal cannula. The chest x-ray from today shows a small right-sided pleural effusion. Chest tubes are all in place and output is diminished compared to yesterday with a stable hemoglobin. Hemodynamically, the patient is on no pressors. Cardiac index is at 1.9. She is producing adequate urine output. Hemoglobin is also stable. Based on all this, I weaned her off the Precedex earlier this morning and subsequently discontinued the BiPAP and currently she sometimes of oxygen by nasal cannula. She is breathing easier. She is less short of breath compared to yesterday. Chest tubes are all in place. Sternum stable clean and intact. The patient has a skin laceration left lower extremity and local wound care is being done and the LIZABETH drain is also in place. She is moving all 4 extremities without any limitation. No nausea. No vomiting. No emesis. No cardiac arrhythmias. She has a hemoglobin of 7.4. White cell count is nonelevated. Blood work and electrodes are all within normal limits earlier this morning. Blood sugars of 118. Objective - Vital Signs Vital signs: Vital Signs Temp 97.0 F L 12/30/17 04:00 Pulse 76 12/30/17 08:07 Resp 11 L 12/30/17 06:30 BP 142/72 12/30/17 06:30 Pulse Ox 98 12/30/17 06:30 Intake & Output 12/29/17 12/30/17 12/30/17 18:59 06:59 18:59 Intake Total 5916.720 7091.930 Output Total 1590 675 Balance -385.980 622.930 Weight 74.3 kg 72.4 kg Intake: IV 718 748 CO/CI 10 40 Lactated Ringers 1,000 ml 600 600 @ 20 mls/hr IV .Q24H JENNIFER Rx#:[id number] Pressure Bags 108 108 Intake, IV Titration 176.020 239.930 Amount ACETAMINOPHEN IV (For NPO 100 ) 1,000 mg In Empty Bag 1 bag @ 400 mls/hr IVPB Q6HR JENNIFER Rx#:[id number] Clevidipine Butyrate 25 18.234 mg In Empty Bag 1 bag @ 1 MG/HR 2 mls/hr IV .Q24H JENNIFER Rx#:[id number] Dexmedetomidine/0.9% NaCl 20.425 120.329 (Pmx) 400 mcg In Empty Bag 1 bag @ Titrate IV . Q0M JENNIFER Rx#:[id number] Insulin Regular 100 unit 16.767 1.367 In Sodium Chloride 0.9% 100 ml @ Per Protocol IV .Q0M JENNIFER Rx#:[id number] Nitroglycerin-D5w Pmx 50 20.675 mg In Dextrose/Water 1 250ml.bag @ 5 MCG/MIN 1.5 mls/hr IV .Q24H JENNIFER Rx#: [id number] Norepinephrine 16 mg In 1.822 Sodium Chloride 0.9% 250 ml @ Titrate IV .Q0M JENNIFER Rx#:[id number] Norepinephrine 4 mg In 56.438 Sodium Chloride 0.9% 250 ml @ Titrate IV .Q0M JENNIFER Rx#:[id number] Propofol 1,000 mg In 59.893 Empty Bag 1 bag @ Titrate IV .Q0M JENNIFER Rx#: [id number] Blood Product 310 310 Rc As-1 Unit 310 [id number] Rc As-3 Unit 310 [id number] Output: Chest Tube Drainage 680 240 Left Pleural 500 140 Mediastinal 180 100 Urine 910 435 Other: Voiding Method Indwelling Catheter Indwelling Catheter ABP, PAP, CO, CI - Last Documented Arterial Blood Pressure 151/67 Pulmonary Artery Pressure 33/19 Cardiac Output 3.1 Cardiac Index 1.9 - Exam Gen. appearance the patient is currently awake and alert and she is following commands and answering questions. No agitation. No signs of a respiratory distress while on 5 L of oxygen by nasal cannula. She is not using his muscles of breathing. She is able to speak in full sentences. Head exam was generally normal. There was no scleral icterus or corneal arcus. Mucous membranes were moist. Neck was supple and without jugular venous distension, thyromegaly, or carotid bruits. Carotids were easily palpable bilaterally. There was no adenopathy. The patient has a right IJ [place]Court catheter in place. No stridor. No neck masses. No hematoma. Lungs sounds are diminished bilaterally and the patient is prolongation of expiratory phase of breathing and scattered expiratory wheezes.lung his bilaterally. Sternum stable clean and intact. The patient is to mediastinal chest tubes and 1 left-sided pleural chest tube in place. Cardiac exam revealed the PMI to be normally situated and sized. The rhythm was regular and no extrasystoles were noted during several minutes of auscultation. The first and second heart sounds were normal and physiologic splitting of the second heart sound was noted. There were no murmurs, rubs, clicks, or gallops. Abdominal exam revealed normal bowel sounds. The abdomen was soft, non-tender, and without masses, organomegaly, or appreciable enlargement of the abdominal aorta. Examination of the extremities revealed adequate pulses. There is areas of skin bruising related to surgical intervention. There is also LIZABETH drain in the left lower extremity. Surgical wound sites are all dry clean and intact. The patient has a laceration of the skin in the left lower extremity this was noted by the surgeon and appropriate dressing is applied and the patient is a LIZABETH drain within the left lower extremity wounds. neurologically, the patient follows commands and moves all 4 extremities. The patient is awake and alert and she is currently off sedation. - Labs CBC & Chem 7: 12/30/17 03:30 12/30/17 03:30 Labs: Abnormal Lab Results - Last 24 Hours (Table) 12/22/17 12/29/17 12/29/17 Range/Units 08:56 08:50 09:59 RBC (3.80-5.40) m/uL Hgb (11.4-16.0) gm/dL Hct (34.0-46.0) % RDW (11.5-15.5) % Plt Count (150-450) k/uL Lymphocytes # (1.0-4.8) k/uL ABG pH (7.35-7.45) ABG pCO2 (35-45) mmHg ABG pO2 (83-108) mmHg ABG Total CO2 (19-24) mmol/L ABG O2 Saturation (94-97) % Glucose (74-99) mg/dL POC Glucose (mg/dL) 130 H 117 H (75-99) mg/dL AST (14-36) U/L Alkaline Phosphatase (38-126) U/L Total Protein (6.3-8.2) g/dL Albumin (3.5-5.0) g/dL Crossmatch See Detail 12/29/17 12/29/17 12/29/17 Range/Units 10:02 10:59 11:03 RBC 2.25 L (3.80-5.40) m/uL Hgb 7.2 L D (11.4-16.0) gm/dL Hct 20.9 L (34.0-46.0) % RDW 15.9 H (11.5-15.5) % Plt Count 105 L (150-450) k/uL Lymphocytes # 0.7 L (1.0-4.8) k/uL ABG pH 7.30 L (7.35-7.45) ABG pCO2 51 H (35-45) mmHg ABG pO2 (83-108) mmHg ABG Total CO2 27 H (19-24) mmol/L ABG O2 Saturation 98.5 H (94-97) % Glucose (74-99) mg/dL POC Glucose (mg/dL) 107 H (75-99) mg/dL AST (14-36) U/L Alkaline Phosphatase (38-126) U/L Total Protein (6.3-8.2) g/dL Albumin (3.5-5.0) g/dL Crossmatch 12/29/17 12/29/17 12/29/17 Range/Units 12:37 12:47 13:17 RBC (3.80-5.40) m/uL Hgb (11.4-16.0) gm/dL Hct (34.0-46.0) % RDW (11.5-15.5) % Plt Count (150-450) k/uL Lymphocytes # (1.0-4.8) k/uL ABG pH (7.35-7.45) ABG pCO2 (35-45) mmHg ABG pO2 115 H (83-108) mmHg ABG Total CO2 25 H (19-24) mmol/L ABG O2 Saturation 99.3 H (94-97) % Glucose (74-99) mg/dL POC Glucose (mg/dL) 126 H 126 H (75-99) mg/dL AST (14-36) U/L Alkaline Phosphatase (38-126) U/L Total Protein (6.3-8.2) g/dL Albumin (3.5-5.0) g/dL Crossmatch 12/29/17 12/29/17 12/29/17 Range/Units 13:53 14:14 15:08 RBC (3.80-5.40) m/uL Hgb (11.4-16.0) gm/dL Hct (34.0-46.0) % RDW (11.5-15.5) % Plt Count (150-450) k/uL Lymphocytes # (1.0-4.8) k/uL ABG pH 7.34 L (7.35-7.45) ABG pCO2 (35-45) mmHg ABG pO2 65 L (83-108) mmHg ABG Total CO2 (19-24) mmol/L ABG O2 Saturation 93.3 L (94-97) % Glucose (74-99) mg/dL POC Glucose (mg/dL) 126 H 132 H (75-99) mg/dL AST (14-36) U/L Alkaline Phosphatase (38-126) U/L Total Protein (6.3-8.2) g/dL Albumin (3.5-5.0) g/dL Crossmatch 12/29/17 12/29/17 12/29/17 Range/Units 16:07 18:15 18:55 RBC 1.96 L (3.80-5.40) m/uL Hgb 6.1 L* (11.4-16.0) gm/dL Hct 17.9 L* (34.0-46.0) % RDW 15.8 H (11.5-15.5) % Plt Count 86 L (150-450) k/uL Lymphocytes # 0.5 L (1.0-4.8) k/uL ABG pH (7.35-7.45) ABG pCO2 (35-45) mmHg ABG pO2 (83-108) mmHg ABG Total CO2 (19-24) mmol/L ABG O2 Saturation (94-97) % Glucose (74-99) mg/dL POC Glucose (mg/dL) 123 H 104 H (75-99) mg/dL AST (14-36) U/L Alkaline Phosphatase (38-126) U/L Total Protein (6.3-8.2) g/dL Albumin (3.5-5.0) g/dL Crossmatch 12/29/17 12/29/17 12/29/17 Range/Units 20:55 22:28 23:12 RBC (3.80-5.40) m/uL Hgb (11.4-16.0) gm/dL Hct (34.0-46.0) % RDW (11.5-15.5) % Plt Count (150-450) k/uL Lymphocytes # (1.0-4.8) k/uL ABG pH (7.35-7.45) ABG pCO2 (35-45) mmHg ABG pO2 (83-108) mmHg ABG Total CO2 (19-24) mmol/L ABG O2 Saturation (94-97) % Glucose (74-99) mg/dL POC Glucose (mg/dL) 115 H 111 H 124 H (75-99) mg/dL AST (14-36) U/L Alkaline Phosphatase (38-126) U/L Total Protein (6.3-8.2) g/dL Albumin (3.5-5.0) g/dL Crossmatch 12/30/17 12/30/17 12/30/17 Range/Units 00:06 01:51 03:30 RBC (3.80-5.40) m/uL Hgb (11.4-16.0) gm/dL Hct (34.0-46.0) % RDW (11.5-15.5) % Plt Count (150-450) k/uL Lymphocytes # (1.0-4.8) k/uL ABG pH (7.35-7.45) ABG pCO2 (35-45) mmHg ABG pO2 (83-108) mmHg ABG Total CO2 (19-24) mmol/L ABG O2 Saturation (94-97) % Glucose 137 H (74-99) mg/dL POC Glucose (mg/dL) 122 H 158 H (75-99) mg/dL AST 60 H (14-36) U/L Alkaline Phosphatase 27 L (38-126) U/L Total Protein 4.8 L (6.3-8.2) g/dL Albumin 3.0 L (3.5-5.0) g/dL Crossmatch 12/30/17 12/30/17 12/30/17 Range/Units 03:30 03:38 04:20 RBC 2.29 L (3.80-5.40) m/uL Hgb 7.4 L (11.4-16.0) gm/dL Hct 21.2 L (34.0-46.0) % RDW (11.5-15.5) % Plt Count 82 L (150-450) k/uL Lymphocytes # 0.6 L (1.0-4.8) k/uL ABG pH (7.35-7.45) ABG pCO2 (35-45) mmHg ABG pO2 (83-108) mmHg ABG Total CO2 (19-24) mmol/L ABG O2 Saturation (94-97) % Glucose (74-99) mg/dL POC Glucose (mg/dL) 155 H 141 H (75-99) mg/dL AST (14-36) U/L Alkaline Phosphatase (38-126) U/L Total Protein (6.3-8.2) g/dL Albumin (3.5-5.0) g/dL Crossmatch 12/30/17 12/30/17 12/30/17 Range/Units 05:36 06:12 07:02 RBC (3.80-5.40) m/uL Hgb (11.4-16.0) gm/dL Hct (34.0-46.0) % RDW (11.5-15.5) % Plt Count (150-450) k/uL Lymphocytes # (1.0-4.8) k/uL ABG pH (7.35-7.45) ABG pCO2 (35-45) mmHg ABG pO2 (83-108) mmHg ABG Total CO2 (19-24) mmol/L ABG O2 Saturation (94-97) % Glucose (74-99) mg/dL POC Glucose (mg/dL) 123 H 118 H 118 H (75-99) mg/dL AST (14-36) U/L Alkaline Phosphatase (38-126) U/L Total Protein (6.3-8.2) g/dL Albumin (3.5-5.0) g/dL Crossmatch 12/30/17 Range/Units 07:14 RBC (3.80-5.40) m/uL Hgb (11.4-16.0) gm/dL Hct (34.0-46.0) % RDW (11.5-15.5) % Plt Count (150-450) k/uL Lymphocytes # (1.0-4.8) k/uL ABG pH (7.35-7.45) ABG pCO2 (35-45) mmHg ABG pO2 124 H (83-108) mmHg ABG Total CO2 25 H (19-24) mmol/L ABG O2 Saturation 99.3 H (94-97) % Glucose (74-99) mg/dL POC Glucose (mg/dL) (75-99) mg/dL AST (14-36) U/L Alkaline Phosphatase (38-126) U/L Total Protein (6.3-8.2) g/dL Albumin (3.5-5.0) g/dL Crossmatch Assessment and Plan Plan: Assessment 1 triple-vessel coronary artery disease, symptomatic with exertional angina and shortness of breath, patient underwent three-vessel bypass surgery and currently she is postop day #2 2 post thoracotomy, currently intubated on mechanical ventilator on an assist- control mode of ventilation. Patient has 2 mediastinal and 1 pleural chest tube. The patient had difficulties with some increased output from the chest to postop. She drop in hemoglobin she received fresh frozen plasma and currently she is stable with stable hemoglobin and output from the chest tubes have dropped considerably. She was weaned off the BiPAP and she is currently on 5 L of oxygen by nasal cannula. Blood gas from this morning shows no significant history acidosis. The patient is tolerating from the Zyvox by nasal cannula. Less bronchospastic and wheezy compared to yesterday as the patient developed an acute COPD exacerbation following extubation. She is currently on accommodation bronchodilators, and steroids. 3 anemia with significant drop in hemoglobin the patient got transfused packed RBC and currently hemoglobin is stable up to 7.4 4 COPD, severe at baseline FEV1 in the 70% range, preoperatively. And postoperative the patient developed an acute component of COPD exacerbation/ bronchospasm wheezing and the patient is currently on a, initial bronchial breath and systemic steroids. Patient is also on BiPAP for respiratory support. The patient was extubated to nasal cannula initially and subsequently placed on BiPAP at a pressure of 14/5 cm of water and FiO2 of 50%. Throughout the night, the patient was kept on a BiPAP and earlier this morning she was taken off the BiPAP and she was placed on 5 minutes of oxygen by nasal cannula. Less bronchospastic and wheezy compared to yesterday. Able to speak Full sentences. She is not using excessive muscle breathing. 5 chronic back pain 6 hypothyroidism 7 hypertension 8 peripheral vascular disease Plan May still need to use the BiPAP on and off during the day. Continue DuoNeb nebulized treatments around the clock. Continue Pulmicort and at Perforomist. Continued IV Solu Medrol. Chest x-ray was reviewed her chest tubes are all in place. The patient developed a small right-sided pleural effusion. Cardiac index is 1.9. Hemoglobin stable at 7.4. Surgical wound are all dry clean and intact. Cardiac rhythm is sinus. Condition remains critical. We'll continue to follow up this patient's primary status very closely in ICU. We'll use BiPAP if needed for any respiratory distress. No need for sedation for now. We 'll continue to follow. Neurologically intact.
[2017-12-30] MEDS ORDERED: POTASSIUM CHLORIDE 20 MEQ in WATER FOR INJECTION 1 100ML.BAG IVPB ONE (08:34)
[2017-12-30 09:10] LABS: Glucose,Whole Blood 157 mg/dL (75-99)
[2017-12-30] MEDS: HYDROcodone/APAP 5-325MG 1 EACH TAB PO PRN ×3 (09:16→17:24)
[2017-12-30] MEDS: LACTATED RINGERS 1,000 ML IV SCH (09:25)
[2017-12-30] MEDS ORDERED: FUROSEMIDE 10 MG/ML 2 ML VIAL IV ONE (10:03)
[2017-12-30 10:42] LABS: ABG PH 7.18 (7.35-7.45)
--- NOTE | 2017-12-30 10:48 | XR ---
EXAMINATION TYPE: XR chest 1V portable DATE OF EXAM: 12/30/2017 COMPARISON: 12/29/2017 HISTORY: Post cardiac surgery TECHNIQUE: Single frontal view of the chest is obtained. FINDINGS: ET and NG tube is been removed. Atherosclerotic change aorta. [place]-Court catheter seen with the tip overlying the proximal pulmonary outflow tract. Bilateral consolidation and pleural effusion . No pneumothorax. Arthropathy of the shoulders. IMPRESSION: 1. Stable consolidation and pleural effusion. Mild central venous congestion in the differential. 2. ET and NG tube removal.
--- NOTE | 2017-12-30 10:52 | PN ---
PROGRESS NOTE This patient is status post coronary artery bypass surgery. Patient is comfortable. Patient is currently on the BiPAP. Patient has remained stable. Denies any chest pain, no shortness of breath. Patient's hemoglobin is 7.4. First and second heart sounds are normal. Lungs reveal a few scattered wheezes. Patient's [place]Court catheter may be removed today. Continue the current medications. MMODL / IJN: [id number] /
[2017-12-30 11:19] LABS: Glucose,Whole Blood 127 mg/dL (75-99)
[2017-12-30] MEDS: METOPROLOL TARTRATE 25 MG TAB PO SCH ×3 (11:25→23:40)
[2017-12-30] MEDS: LOSARTAN 25 MG TAB PO SCH (11:29)
[2017-12-30] MEDS: INSULIN DETEMIR 100 UNIT/ML 10 ML VIAL SQ SCH (12:37)
[2017-12-30] MEDS: INSULIN ASPART 100 UNIT/ML 1 ML 10 ML VIAL SQ SCH ×3 (12:37→21:30)
[2017-12-30 12:55] LABS: Glucose,Whole Blood 135 mg/dL (75-99)
--- NOTE | 2017-12-30 13:51 | P.PN ---
Subjective Progress Note Date: 12/30/17 Principal diagnosis: Triple-vessel coronary artery disease. Preserved left ventricular function. Chronic degenerative arthritis, History of mild chronic obstructive pulmonary disease with preoperative FEV1 70% of predicted, severe peripheral vascular disease, hypertension, remote history of pulmonary embolism, hypothyroid, and previous tobacco dependence. History of fall from standing preoperatively. POD #2 triple coronary artery bypass grafting using the left internal mammary artery to the left anterior descending coronary artery, a reverse greater saphenous vein graft from the aorta to the first obtuse marginal coronary artery , a reverse greater saphenous vein graft from the aorta to the posterior descending coronary artery, endoscopic harvesting of the left greater saphenous vein, intraoperative transesophageal echocardiogram and epi-aortic scanning, intraoperative graft flow measurements using the Bestowed system. Postoperative acute blood loss anemia, an unexpected outcome. The patient is currently lying in bed in no acute distress on BiPAP. ABGs were drawn this morning showing a pH 7.40, pCO2 39, pO2 124, HCO3 25, oxygen saturation is 99.3% and a base excess of -0.9. She has been weaned off BiPAP and placed to 5 L nasal cannula with oxygen saturations 98%. She remains hemodynamically stable on no vasopressors. She alert and oriented 3 and following verbal commands appropriately. She has received 4 units of packed red blood cells and 2 units of FFP since surgery. Her daughter and are at her bedside. Objective - Vital Signs Vital signs: Vital Signs Temp 98.2 F 12/30/17 08:00 Pulse 100 12/30/17 11:28 Resp 12 12/30/17 11:00 BP 141/82 12/30/17 11:00 Pulse Ox 94 L 12/30/17 11:00 Intake & Output 12/29/17 12/30/17 12/30/17 18:59 06:59 18:59 Intake Total 0809.635 2680.930 367.267 Output Total 1590 675 235 Balance -385.980 622.930 132.267 Weight 74.3 kg 72.4 kg 72.4 kg Intake: IV 718 748 255 CO/CI 10 40 Lactated Ringers 1,000 ml 600 600 210 @ 20 mls/hr IV .Q24H COUNTS INCLUDE 234 BEDS AT THE [facility] Rx#:[id number] Pressure Bags 108 108 45 Intake, IV Titration 176.020 239.930 112.267 Amount ACETAMINOPHEN IV (For NPO 100 ) 1,000 mg In Empty Bag 1 bag @ 400 mls/hr IVPB Q6HR [facility] Rx#:[id number] Calcium Chloride 1,000 mg 100 In Sodium Chloride 0.9% 100 ml @ 100 mls/hr IVPB ONCE STA Rx#:[id number] Clevidipine Butyrate 25 18.234 mg In Empty Bag 1 bag @ 1 MG/HR 2 mls/hr IV .Q24H [facility] Rx#:[id number] Dexmedetomidine/0.9% NaCl 20.425 120.329 (Pmx) 400 mcg In Empty Bag 1 bag @ Titrate IV . Q0M [facility] Rx#:[id number] Insulin Regular 100 unit 16.767 1.367 12.267 In Sodium Chloride 0.9% 100 ml @ Per Protocol IV .Q0M COUNTS INCLUDE 234 BEDS AT THE [facility] Rx#:[id number] Nitroglycerin-D5w Pmx 50 20.675 mg In Dextrose/Water 1 250ml.bag @ 5 MCG/MIN 1.5 mls/hr IV .Q24H [facility] Rx#: [id number] Norepinephrine 16 mg In 1.822 Sodium Chloride 0.9% 250 ml @ Titrate IV .Q0M COUNTS INCLUDE 234 BEDS AT THE [facility] Rx#:[id number] Norepinephrine 4 mg In 56.438 Sodium Chloride 0.9% 250 ml @ Titrate IV .Q0M COUNTS INCLUDE 234 BEDS AT THE [facility] Rx#:[id number] Propofol 1,000 mg In 59.893 Empty Bag 1 bag @ Titrate IV .Q0M [facility]ENN[facility] Rx#: [id number] Blood Product 310 310 Rc As-1 Unit 310 [id number] Rc As-3 Unit 310 [id number] Output: Chest Tube Drainage 680 240 40 Left Pleural 500 140 30 Mediastinal 180 100 10 Urine 910 435 195 Other: Voiding Method Indwelling Catheter Indwelling Catheter Indwelling Catheter ABP, PAP, CO, CI - Last Documented Arterial Blood Pressure 172/70 Pulmonary Artery Pressure 33/17 Cardiac Output 4 Cardiac Index 2.6 - Constitutional General appearance: Present: cooperative, no acute distress, obese - Respiratory Details: Lung sounds essentially diminished throughout. Respirations are symmetrical and nonlabored. Oxygen saturation are 98% on 5 L nasal cannula. She is achieving 300 mL on her incentive spirometry with encouragement. Mediastinal and left pleural chest tubes in place to low continuous wall suction -20 cm H2O. No air leak is present. Draining thin serosanguineous drainage. Mediastinal chest tubes drained 70 mL output in the last 8 hours, 250 mL in the last 24 hours. Left pleural chest tube drained 140 mL output in the last 8 hours, 650 mL output in the last 24 hours. - Cardiovascular Details: Regular rhythm and rate. S1 and S2 present, negative for S3, gallop or murmur. Sternum is stable. Bedside telemetry showing normal sinus rhythm heart rate 69. Heart hugger is in place and she is demonstrating appropriate use. Atrial and ventricular epicardial pacemaker wires in place and connected to a backup pacemaker generator on a VVI 50. Knee-high AMINTA hose and sequential compression devices in place to her bilateral lower extremities. Right IJ Cordis with Delano- Court catheter in place. Current cardiac output 3.1, cardiac index 1.9, PA pressures 36/21, CVP 14 mmHg. Right radial arterial line in place and functioning. No edema present. - Gastrointestinal Gastrointestinal Comment(s): Abdomen is soft, nontender and nondistended. Hypoactive bowel sounds present in all 4 abdominal quadrants. - Genitourinary Genitourinary Comment(s): Segovia catheter for accurate I&O. Draining clear yellow urine, 405 mL output in the last 8 hours. - Integumentary Integumentary Comment(s): Skin is warm and dry. No clubbing or cyanosis present. Midline sternal incision clean dry and approximated. Left lower extremity EVH site clean dry and approximated. Area of skin excoriation to her left brandon with scant serosanguineous drainage. Dressing remains clean and dry and intact. Scattered ecchymotic areas to her face bilateral upper and lower extremities. History of recent trauma from a fall preoperatively. - Neurologic Neurologic: Present: CNII-XII intact - Musculoskeletal Musculoskeletal: Present: generalized weakness, strength equal bilaterally - Psychiatric Psychiatric: Present: A&O x's 3, appropriate affect, intact judgment & insight - Allied health notes Allied health notes reviewed: nursing - Labs CBC & Chem 7: 12/30/17 03:30 12/30/17 03:30 Labs: Abnormal Lab Results - Last 24 Hours (Table) 12/22/17 12/29/17 12/29/17 Range/Units 08:56 01:08 13:53 RBC (3.80-5.40) m/uL Hgb (11.4-16.0) gm/dL Hct (34.0-46.0) % RDW (11.5-15.5) % Plt Count (150-450) k/uL Lymphocytes # (1.0-4.8) k/uL ABG pH 7.18 L* 7.34 L (7.35-7.45) ABG pO2 65 L (83-108) mmHg ABG Total CO2 (19-24) mmol/L ABG O2 Saturation 93.3 L (94-97) % Glucose (74-99) mg/dL POC Glucose (mg/dL) (75-99) mg/dL AST (14-36) U/L Alkaline Phosphatase (38-126) U/L Total Protein (6.3-8.2) g/dL Albumin (3.5-5.0) g/dL Crossmatch See Detail 12/29/17 12/29/17 12/29/17 Range/Units 14:14 15:08 16:07 RBC (3.80-5.40) m/uL Hgb (11.4-16.0) gm/dL Hct (34.0-46.0) % RDW (11.5-15.5) % Plt Count (150-450) k/uL Lymphocytes # (1.0-4.8) k/uL ABG pH (7.35-7.45) ABG pO2 (83-108) mmHg ABG Total CO2 (19-24) mmol/L ABG O2 Saturation (94-97) % Glucose (74-99) mg/dL POC Glucose (mg/dL) 126 H 132 H 123 H (75-99) mg/dL AST (14-36) U/L Alkaline Phosphatase (38-126) U/L Total Protein (6.3-8.2) g/dL Albumin (3.5-5.0) g/dL Crossmatch 12/29/17 12/29/17 12/29/17 Range/Units 18:15 18:55 20:55 RBC 1.96 L (3.80-5.40) m/uL Hgb 6.1 L* (11.4-16.0) gm/dL Hct 17.9 L* (34.0-46.0) % RDW 15.8 H (11.5-15.5) % Plt Count 86 L (150-450) k/uL Lymphocytes # 0.5 L (1.0-4.8) k/uL ABG pH (7.35-7.45) ABG pO2 (83-108) mmHg ABG Total CO2 (19-24) mmol/L ABG O2 Saturation (94-97) % Glucose (74-99) mg/dL POC Glucose (mg/dL) 104 H 115 H (75-99) mg/dL AST (14-36) U/L Alkaline Phosphatase (38-126) U/L Total Protein (6.3-8.2) g/dL Albumin (3.5-5.0) g/dL Crossmatch 12/29/17 12/29/17 12/30/17 Range/Units 22:28 23:12 00:06 RBC (3.80-5.40) m/uL Hgb (11.4-16.0) gm/dL Hct (34.0-46.0) % RDW (11.5-15.5) % Plt Count (150-450) k/uL Lymphocytes # (1.0-4.8) k/uL ABG pH (7.35-7.45) ABG pO2 (83-108) mmHg ABG Total CO2 (19-24) mmol/L ABG O2 Saturation (94-97) % Glucose (74-99) mg/dL POC Glucose (mg/dL) 111 H 124 H 122 H (75-99) mg/dL AST (14-36) U/L Alkaline Phosphatase (38-126) U/L Total Protein (6.3-8.2) g/dL Albumin (3.5-5.0) g/dL Crossmatch 12/30/17 12/30/17 12/30/17 Range/Units 01:51 03:30 03:30 RBC 2.29 L (3.80-5.40) m/uL Hgb 7.4 L (11.4-16.0) gm/dL Hct 21.2 L (34.0-46.0) % RDW (11.5-15.5) % Plt Count 82 L (150-450) k/uL Lymphocytes # 0.6 L (1.0-4.8) k/uL ABG pH (7.35-7.45) ABG pO2 (83-108) mmHg ABG Total CO2 (19-24) mmol/L ABG O2 Saturation (94-97) % Glucose 137 H (74-99) mg/dL POC Glucose (mg/dL) 158 H (75-99) mg/dL AST 60 H (14-36) U/L Alkaline Phosphatase 27 L (38-126) U/L Total Protein 4.8 L (6.3-8.2) g/dL Albumin 3.0 L (3.5-5.0) g/dL Crossmatch 12/30/17 12/30/17 12/30/17 Range/Units 03:38 04:20 05:36 RBC (3.80-5.40) m/uL Hgb (11.4-16.0) gm/dL Hct (34.0-46.0) % RDW (11.5-15.5) % Plt Count (150-450) k/uL Lymphocytes # (1.0-4.8) k/uL ABG pH (7.35-7.45) ABG pO2 (83-108) mmHg ABG Total CO2 (19-24) mmol/L ABG O2 Saturation (94-97) % Glucose (74-99) mg/dL POC Glucose (mg/dL) 155 H 141 H 123 H (75-99) mg/dL AST (14-36) U/L Alkaline Phosphatase (38-126) U/L Total Protein (6.3-8.2) g/dL Albumin (3.5-5.0) g/dL Crossmatch 12/30/17 12/30/17 12/30/17 Range/Units 06:12 07:02 07:14 RBC (3.80-5.40) m/uL Hgb (11.4-16.0) gm/dL Hct (34.0-46.0) % RDW (11.5-15.5) % Plt Count (150-450) k/uL Lymphocytes # (1.0-4.8) k/uL ABG pH (7.35-7.45) ABG pO2 124 H (83-108) mmHg ABG Total CO2 25 H (19-24) mmol/L ABG O2 Saturation 99.3 H (94-97) % Glucose (74-99) mg/dL POC Glucose (mg/dL) 118 H 118 H (75-99) mg/dL AST (14-36) U/L Alkaline Phosphatase (38-126) U/L Total Protein (6.3-8.2) g/dL Albumin (3.5-5.0) g/dL Crossmatch 12/30/17 12/30/17 12/30/17 Range/Units 09:09 11:18 12:36 RBC (3.80-5.40) m/uL Hgb (11.4-16.0) gm/dL Hct (34.0-46.0) % RDW (11.5-15.5) % Plt Count (150-450) k/uL Lymphocytes # (1.0-4.8) k/uL ABG pH (7.35-7.45) ABG pO2 (83-108) mmHg ABG Total CO2 (19-24) mmol/L ABG O2 Saturation (94-97) % Glucose (74-99) mg/dL POC Glucose (mg/dL) 157 H 127 H 135 H (75-99) mg/dL AST (14-36) U/L Alkaline Phosphatase (38-126) U/L Total Protein (6.3-8.2) g/dL Albumin (3.5-5.0) g/dL Crossmatch - Imaging and Cardiology Chest x-ray: report reviewed, image reviewed Assessment and Plan (1) History of fall Current Visit: Yes Status: Acute Code(s): Z91.81 - HISTORY OF FALLING SNOMED Code(s): 257153073 (2) CAD (coronary artery disease) Current Visit: Yes Status: Chronic Code(s): I25.10 - ATHSCL HEART DISEASE OF [place] CORONARY ARTERY W/O ANG PCTRS SNOMED Code(s): 86071332 (3) Hypertension Current Visit: Yes Status: Chronic Code(s): I10 - ESSENTIAL (PRIMARY) HYPERTENSION SNOMED Code(s): 50016556 (4) Peripheral vascular disease Current Visit: Yes Status: Chronic Code(s): I73.9 - PERIPHERAL VASCULAR DISEASE, UNSPECIFIED SNOMED Code(s): 122617051 (5) Facial contusion Current Visit: No Status: Acute Code(s): S00.83XA - CONTUSION OF OTHER PART OF HEAD, INITIAL ENCOUNTER SNOMED Code(s): 999960654 (6) History of pulmonary embolism Current Visit: No Status: Resolved Code(s): Z86.711 - PERSONAL HISTORY OF PULMONARY EMBOLISM SNOMED Code(s): 432381641 (7) Tobacco dependence in remission Current Visit: No Status: Resolved Code(s): F17.201 - NICOTINE DEPENDENCE, UNSPECIFIED, IN REMISSION SNOMED Code(s): 253396825 Plan: 1. Continue low-dose aspirin, heparin subcu, Plavix, statin and beta jaida. Will increase beta jaida therapy as tolerated. 2. Wean O2 as tolerated, encourage incentive spirometry 10 times every hour while awake. 3. Bronchodilators, steroids management per Dr. Best's recommendations. 4. Increase activity as tolerated. Out of bed for all meals. PT/OT/cardiac rehab following. 5. Will monitor daily labs and chest x-rays. 6. Lasix 20 mg IV 1 now. 7. Pain control with current medication regimen. 8. GI prophylaxis with Protonix. DVT prophylaxis with subcu heparin, SCDs. 9. Discontinue Delano-Court catheter, keep right IJ Cordis in place to continue CVP monitoring. 10. Keep left pleural and mediastinal chest tubes in place today. 11. We will add Cozaar 25 mg by mouth daily. 12. More recommendations to follow based on her clinical course. Time with Patient: Greater than 30
--- NOTE | 2017-12-30 14:14 | P.PN ---
Subjective Progress Note Date: 12/30/17 This is a 77-year-old female one of my patient with a previous medical history significant for COPD, coronary artery disease, peripheral vascular disease and hypertension, who was experiencing symptoms of exertional dyspnea and angina. She underwent stress test and she was found to have reversible ischemia and based on that the patient underwent a cardiac catheterization and she was found to have extreme calcified right and left coronary arteries, severe triple-vessel disease, severe disease involving the proximal RCA, severe disease involving the ostial circumflex and severe disease involving the ostial left anterior descending coronary artery. Based on this, the patient was referred for bypass surgery and the patient underwent three- vessel bypass with LOPES to LAD, SVG to OM and SVG to PDA, Preop echocardiogram showed a preserved LV function with an ejection fraction of 55-60%. The patient has mild concentric left ventricular hypertrophy, patient was admitted to intensive care unit she is currently on assist mode ventilation with FiO2 of 40% tidal volume of 400 and PEEP of 5, patient was slightly agitated earlier today in the morning and this is delayed her expiration this will be reevaluated in the next few hours hopefully she'll be extubated her on today. 12/30: Patient has been successfully extubated. She remains in the intensive care unit. Patient did have some anxiety issues and a sitter is at the bedside. She states that she is feeling "droggy" but is quite talkative. She denies having any headache. Positive cough. She denies passing any gas. No bowel movement. Her chest pain is currently controlled. She denies any shortness of breath. Chest tubes, Segovia, right-sided cordis remain in place. Patient has a LIZABETH drain to the left lower extremity. Blood sugars are running in the low 100s and we will plan to transition her over to Levemir and NovoLog scale and discontinue insulin drip. Hemoglobin is 7.4, platelet count 82. patient is status post total of 4 units packed RBCs and 2 fresh frozen plasma, 1 platelet. Review Of Systems: Constitutional: No fever, no chills, no night sweats. No weight change. + weakness, +fatigue no lethargy. No daytime sleepiness. EENT: No headache. No blurred vision or double vision, no loss of vision. No loss of Hearing, no ringing in the ears, no dizziness. No nasal drainage or congestion. No epistaxis. No sore throat. Lungs: No shortness of breath, +cough, + sputum production. No wheezing. Cardiovascular: No chest pain (controlled), no lower extremity edema. No palpitations. No paroxysmal nocturnal dyspnea. No orthopnea. No lightheadedness or dizziness. No syncopal episodes. Abdominal: No abdominal pain. No nausea, vomiting. No diarrhea. No constipation. No bloody or tarry stools. No loss of appetite. Genitourinary: No dysuria, increased frequency, urgency. No urinary retention. Musculoskeletal: No myalgias. No muscle weakness, no gait dysfunction, no frequent falls. No back pain. No neck pain. Integumentary: No wounds, no lesions. No rash or pruritus. No unusual bruising. No change in hair or nails. Neurologic: No aphasia. No facial droop. No change in mentation. No head injury. No headache. No paralysis. No paresthesia. Psychiatric: No depression. No anxiety. No mood swings. Endocrine: No abnormal blood sugars. No weight change. No excessive sweating or thirst. No cold intolerance. Objective - Vital Signs Vital signs: Vital Signs Temp 97.0 F L 12/30/17 04:00 Pulse 70 12/30/17 06:30 Resp 11 L 12/30/17 06:30 BP 142/72 12/30/17 06:30 Pulse Ox 98 12/30/17 06:30 Intake & Output 12/29/17 12/30/17 12/30/17 18:59 06:59 18:59 Intake Total 7945.746 0274.930 Output Total 1590 675 Balance -385.980 622.930 Weight 74.3 kg 72.4 kg Intake: IV 718 748 CO/CI 10 40 Lactated Ringers 1,000 ml 600 600 @ 20 mls/hr IV .Q24H JENNIFER Rx#:[id number] Pressure Bags 108 108 Intake, IV Titration 176.020 239.930 Amount ACETAMINOPHEN IV (For NPO 100 ) 1,000 mg In Empty Bag 1 bag @ 400 mls/hr IVPB Q6HR JENNIFER Rx#:[id number] Clevidipine Butyrate 25 18.234 mg In Empty Bag 1 bag @ 1 MG/HR 2 mls/hr IV .Q24H JENNIFER Rx#:[id number] Dexmedetomidine/0.9% NaCl 20.425 120.329 (Pmx) 400 mcg In Empty Bag 1 bag @ Titrate IV . Q0M JENNIFER Rx#:[id number] Insulin Regular 100 unit 16.767 1.367 In Sodium Chloride 0.9% 100 ml @ Per Protocol IV .Q0M JENNIFER Rx#:[id number] Nitroglycerin-D5w Pmx 50 20.675 mg In Dextrose/Water 1 250ml.bag @ 5 MCG/MIN 1.5 mls/hr IV .Q24H JENNIFER Rx#: [id number] Norepinephrine 16 mg In 1.822 Sodium Chloride 0.9% 250 ml @ Titrate IV .Q0M JENNIFER Rx#:[id number] Norepinephrine 4 mg In 56.438 Sodium Chloride 0.9% 250 ml @ Titrate IV .Q0M JENNIFER Rx#:[id number] Propofol 1,000 mg In 59.893 Empty Bag 1 bag @ Titrate IV .Q0M JENNIFER Rx#: [id number] Blood Product 310 310 Rc As-1 Unit 310 [id number] Rc As-3 Unit 310 [id number] Output: Chest Tube Drainage 680 240 Left Pleural 500 140 Mediastinal 180 100 Urine 910 435 Other: Voiding Method Indwelling Catheter Indwelling Catheter ABP, PAP, CO, CI - Last Documented Arterial Blood Pressure 151/67 Pulmonary Artery Pressure 33/19 Cardiac Output 3.1 Cardiac Index 1.9 - Exam Constitutional General appearance: no acute distress - EENT ENT: Pupils equal round, conjunctiva slightly pale, mucous members of the mouth slightly dry. Trachea midline. Ears: bilateral: normal - Neck Neck: no lymphadenopathy Carotids: bilateral: upstroke delayed - Respiratory Respiratory: bilateral: diminished, rales, rhonchi, prolonged expiration, negative: dullness, wheezing, other (chest tubes in place.) - Cardiovascular Rhythm: regular Heart sounds: normal: S1, S2 Abnormal Heart Sounds: systolic murmur, rub, S3 Gallop - Gastrointestinal General gastrointestinal: normal bowel sounds, soft, no splenomegaly, no tenderness, no umbilical hernia, no ventral hernia - Integumentary Integumentary: normal, normal turgor - Psychiatric Psychiatric: A&O x's 3, appropriate affect, intact judgment & insight - Labs CBC & Chem 7: 12/30/17 03:30 12/30/17 03:30 Labs: Abnormal Lab Results - Last 24 Hours (Table) 12/22/17 12/29/17 12/29/17 Range/Units 08:56 08:08 08:50 RBC (3.80-5.40) m/uL Hgb (11.4-16.0) gm/dL Hct (34.0-46.0) % RDW (11.5-15.5) % Plt Count (150-450) k/uL Lymphocytes # (1.0-4.8) k/uL ABG pH (7.35-7.45) ABG pCO2 (35-45) mmHg ABG pO2 (83-108) mmHg ABG Total CO2 (19-24) mmol/L ABG O2 Saturation (94-97) % Glucose (74-99) mg/dL POC Glucose (mg/dL) 131 H 130 H (75-99) mg/dL AST (14-36) U/L Alkaline Phosphatase (38-126) U/L Total Protein (6.3-8.2) g/dL Albumin (3.5-5.0) g/dL Crossmatch See Detail 12/29/17 12/29/17 12/29/17 Range/Units 09:59 10:02 10:59 RBC 2.25 L (3.80-5.40) m/uL Hgb 7.2 L D (11.4-16.0) gm/dL Hct 20.9 L (34.0-46.0) % RDW 15.9 H (11.5-15.5) % Plt Count 105 L (150-450) k/uL Lymphocytes # 0.7 L (1.0-4.8) k/uL ABG pH 7.30 L (7.35-7.45) ABG pCO2 51 H (35-45) mmHg ABG pO2 (83-108) mmHg ABG Total CO2 27 H (19-24) mmol/L ABG O2 Saturation 98.5 H (94-97) % Glucose (74-99) mg/dL POC Glucose (mg/dL) 117 H (75-99) mg/dL AST (14-36) U/L Alkaline Phosphatase (38-126) U/L Total Protein (6.3-8.2) g/dL Albumin (3.5-5.0) g/dL Crossmatch 12/29/17 12/29/17 12/29/17 Range/Units 11:03 12:37 12:47 RBC (3.80-5.40) m/uL Hgb (11.4-16.0) gm/dL Hct (34.0-46.0) % RDW (11.5-15.5) % Plt Count (150-450) k/uL Lymphocytes # (1.0-4.8) k/uL ABG pH (7.35-7.45) ABG pCO2 (35-45) mmHg ABG pO2 115 H (83-108) mmHg ABG Total CO2 25 H (19-24) mmol/L ABG O2 Saturation 99.3 H (94-97) % Glucose (74-99) mg/dL POC Glucose (mg/dL) 107 H 126 H (75-99) mg/dL AST (14-36) U/L Alkaline Phosphatase (38-126) U/L Total Protein (6.3-8.2) g/dL Albumin (3.5-5.0) g/dL Crossmatch 12/29/17 12/29/17 12/29/17 Range/Units 13:17 13:53 14:14 RBC (3.80-5.40) m/uL Hgb (11.4-16.0) gm/dL Hct (34.0-46.0) % RDW (11.5-15.5) % Plt Count (150-450) k/uL Lymphocytes # (1.0-4.8) k/uL ABG pH 7.34 L (7.35-7.45) ABG pCO2 (35-45) mmHg ABG pO2 65 L (83-108) mmHg ABG Total CO2 (19-24) mmol/L ABG O2 Saturation 93.3 L (94-97) % Glucose (74-99) mg/dL POC Glucose (mg/dL) 126 H 126 H (75-99) mg/dL AST (14-36) U/L Alkaline Phosphatase (38-126) U/L Total Protein (6.3-8.2) g/dL Albumin (3.5-5.0) g/dL Crossmatch 1112/29/17 12/29/17 Range/Units 15:08 16:07 18:15 RBC (3.80-5.40) m/uL Hgb (11.4-16.0) gm/dL Hct (34.0-46.0) % RDW (11.5-15.5) % Plt Count (150-450) k/uL Lymphocytes # (1.0-4.8) k/uL ABG pH (7.35-7.45) ABG pCO2 (35-45) mmHg ABG pO2 (83-108) mmHg ABG Total CO2 (19-24) mmol/L ABG O2 Saturation (94-97) % Glucose (74-99) mg/dL POC Glucose (mg/dL) 132 H 123 H 104 H (75-99) mg/dL AST (14-36) U/L Alkaline Phosphatase (38-126) U/L Total Protein (6.3-8.2) g/dL Albumin (3.5-5.0) g/dL Crossmatch 12/29/17 12/29/17 12/29/17 Range/Units 18:55 20:55 22:28 RBC 1.96 L (3.80-5.40) m/uL Hgb 6.1 L* (11.4-16.0) gm/dL Hct 17.9 L* (34.0-46.0) % RDW 15.8 H (11.5-15.5) % Plt Count 86 L (150-450) k/uL Lymphocytes # 0.5 L (1.0-4.8) k/uL ABG pH (7.35-7.45) ABG pCO2 (35-45) mmHg ABG pO2 (83-108) mmHg ABG Total CO2 (19-24) mmol/L ABG O2 Saturation (94-97) % Glucose (74-99) mg/dL POC Glucose (mg/dL) 115 H 111 H (75-99) mg/dL AST (14-36) U/L Alkaline Phosphatase (38-126) U/L Total Protein (6.3-8.2) g/dL Albumin (3.5-5.0) g/dL Crossmatch 12/29/17 12/30/17 12/30/17 Range/Units 23:12 00:06 01:51 RBC (3.80-5.40) m/uL Hgb (11.4-16.0) gm/dL Hct (34.0-46.0) % RDW (11.5-15.5) % Plt Count (150-450) k/uL Lymphocytes # (1.0-4.8) k/uL ABG pH (7.35-7.45) ABG pCO2 (35-45) mmHg ABG pO2 (83-108) mmHg ABG Total CO2 (19-24) mmol/L ABG O2 Saturation (94-97) % Glucose (74-99) mg/dL POC Glucose (mg/dL) 124 H 122 H 158 H (75-99) mg/dL AST (14-36) U/L Alkaline Phosphatase (38-126) U/L Total Protein (6.3-8.2) g/dL Albumin (3.5-5.0) g/dL Crossmatch 12/30/17 12/30/17 12/30/17 Range/Units 03:30 03:30 03:38 RBC 2.29 L (3.80-5.40) m/uL Hgb 7.4 L (11.4-16.0) gm/dL Hct 21.2 L (34.0-46.0) % RDW (11.5-15.5) % Plt Count 82 L (150-450) k/uL Lymphocytes # 0.6 L (1.0-4.8) k/uL ABG pH (7.35-7.45) ABG pCO2 (35-45) mmHg ABG pO2 (83-108) mmHg ABG Total CO2 (19-24) mmol/L ABG O2 Saturation (94-97) % Glucose 137 H (74-99) mg/dL POC Glucose (mg/dL) 155 H (75-99) mg/dL AST 60 H (14-36) U/L Alkaline Phosphatase 27 L (38-126) U/L Total Protein 4.8 L (6.3-8.2) g/dL Albumin 3.0 L (3.5-5.0) g/dL Crossmatch 12/30/17 12/30/17 12/30/17 Range/Units 04:20 05:36 06:12 RBC (3.80-5.40) m/uL Hgb (11.4-16.0) gm/dL Hct (34.0-46.0) % RDW (11.5-15.5) % Plt Count (150-450) k/uL Lymphocytes # (1.0-4.8) k/uL ABG pH (7.35-7.45) ABG pCO2 (35-45) mmHg ABG pO2 (83-108) mmHg ABG Total CO2 (19-24) mmol/L ABG O2 Saturation (94-97) % Glucose (74-99) mg/dL POC Glucose (mg/dL) 141 H 123 H 118 H (75-99) mg/dL AST (14-36) U/L Alkaline Phosphatase (38-126) U/L Total Protein (6.3-8.2) g/dL Albumin (3.5-5.0) g/dL Crossmatch 12/30/17 Range/Units 07:02 RBC (3.80-5.40) m/uL Hgb (11.4-16.0) gm/dL Hct (34.0-46.0) % RDW (11.5-15.5) % Plt Count (150-450) k/uL Lymphocytes # (1.0-4.8) k/uL ABG pH (7.35-7.45) ABG pCO2 (35-45) mmHg ABG pO2 (83-108) mmHg ABG Total CO2 (19-24) mmol/L ABG O2 Saturation (94-97) % Glucose (74-99) mg/dL POC Glucose (mg/dL) 118 H (75-99) mg/dL AST (14-36) U/L Alkaline Phosphatase (38-126) U/L Total Protein (6.3-8.2) g/dL Albumin (3.5-5.0) g/dL Crossmatch Assessment and Plan Plan: 1. Post operative day #2 status post CABG 3 with LOPES to LAD, SVG to OM, SVG to PDA. Patient has been successfully extubated, continue aggressive pulmonary toileting with nebulized treatment, patient did receive a dose of Lasix today- dose daily. Continue DuoNeb treatments, Pulmicort, Perforomist. Continue aspirin 81 mg daily, Lipitor 40 mg daily, Plavix 75 mg daily, amiodarone. 2. CAD post CABG. continue as in #1. 3. Hypertension and hypertensive cardiovascular disease. Continue losartan 25 mg orally once every day, Lopressor 12.5 mg orally 3 times daily. 4. Hyperlipidemia. Continue Lipitor 40 mg once every day. 5. Moderate bilateral vascular disease. Continue aspirin and Lipitor for secondary prevention. 6. Mild COPD. Continue aggressive pulmonary toileting with nebulized treatment. 7. 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 Continue with current pain management. 8. Hypothyroidism. Continue patient on Synthroid 25 g orally once every day. 9. Recurrent depression. Continue Wellbutrin 75 mg orally once every day. 10. Discharge plan: To be determined Impression and plan of care have been directed as dictated by the signing physician. Yecenia Holcomb nurse practitioner acting as scribe for signing physician.
[2017-12-30] MEDS ORDERED: DEXMEDETOMIDINE/0.9% NACL(PMX) 400 MCG in EMPTY BAG 1 BAG IV SCH (17:15)
[2017-12-30 17:34] LABS: Glucose,Whole Blood 162 mg/dL (75-99)
[2017-12-30 19:50] LABS: Basophils % (A) 0 %; Eosinophils % (A) 0 %; HCT 20.4 % (34.0-46.0); Lymphocytes # (A) 0.5 k/uL (1.0-4.8); Lymphocytes % (A) 4 %; MCH 32.2 pg (25.0-35.0); MCHC 34.6 g/dL (31.0-37.0); MCV 92.9 fL (80.0-100.0); Mean Platelet Volume 7.3; Monocytes # (A) 0.5 k/uL (0-1.0); Monocytes % (A) 4 %; Neutrophils % (A) 91 %; RDW 15.5 % (11.5-15.5); WBC 12.1 k/uL (3.8-10.6)
[2017-12-30 19:52] LABS: HGB 7.1 gm/dL (11.4-16.0); Platelet Count 95 k/uL (150-450)
[2017-12-30 20:22] LABS: Glucose,Whole Blood 127 mg/dL (75-99)
[2017-12-30] MEDS: SENNOSIDES-DOCUSATE SODIUM 1 EACH TAB PO SCH (23:39)
[2017-12-31] MEDS: HYDROcodone/APAP 5-325MG 1 EACH TAB PO PRN ×4 (00:03→23:51)
[2017-12-31] MEDS: LACTATED RINGERS 1,000 ML IV SCH (03:30)
[2017-12-31 05:37] LABS: Basophils % (A) 0 %; Eosinophils % (A) 0 %; HCT 20.5 % (34.0-46.0); Lymphocytes # (A) 0.6 k/uL (1.0-4.8); Lymphocytes % (A) 5 %; MCH 32.1 pg (25.0-35.0); MCHC 33.9 g/dL (31.0-37.0); MCV 94.8 fL (80.0-100.0); Mean Platelet Volume 7.8; Monocytes # (A) 0.6 k/uL (0-1.0); Monocytes % (A) 5 %; Neutrophils # (A) 10.8 k/uL (1.3-7.7); Neutrophils % (A) 90 %; Platelet Count 102 k/uL (150-450); RBC 2.16 m/uL (3.80-5.40); RDW 15.5 % (11.5-15.5); WBC 12.1 k/uL (3.8-10.6)
[2017-12-31] MEDS: BUDESONIDE 0.5 MG/2 ML NEBU INHALATION SCH ×2 (05:38→19:20)
[2017-12-31] MEDS: IPRATROPIUM-ALBUTEROL 3 ML NEB INHALATION SCH ×4 (05:38→19:20)
[2017-12-31] MEDS: FORMOTEROL FUMARATE 20 MCG/2 ML NEBU INHALATION SCH ×2 (05:39→19:20)
[2017-12-31 05:59] LABS: ALT 37 U/L (9-52); AST 67 U/L (14-36); Albumin 3.2 g/dL (3.5-5.0); Alkaline Phosphatase 35 U/L (38-126); Anion Gap 6 mmol/L; Blood Urea Nitrogen 32 mg/dL (7-17); Calcium 8.7 mg/dL (8.4-10.2); Carbon Dioxide 24 mmol/L (22-30); Chloride 106 mmol/L (98-107); Glucose 138 mg/dL (74-99); HGB 6.9 gm/dL (11.4-16.0); Potassium 4.8 mmol/L (3.5-5.1); Sodium 136 mmol/L (137-145); Total Bilirubin 0.7 mg/dL (0.2-1.3); Total Protein 5.2 g/dL (6.3-8.2)
--- NOTE | 2017-12-31 06:09 | XR ---
EXAMINATION TYPE: XR chest 1V portable DATE OF EXAM: 12/31/2017 HISTORY: Postoperative CABG. REFERENCE: Previous study dated 12/30/2017. FINDINGS: There has been a midline sternotomy. The patient [place] catheter is been removed. A righ t internal jugular sheath persists. There is bibasilar airspace disease, worse on the left than the right. There are bilateral effusions, worse on the left than the right. The overall appearance of the chest has not changed significantly. IMPRESSION: NO SIGNIFICANT INTERVAL CHANGE IN THE APPEARANCE OF THE CHEST.
[2017-12-31] MEDS: LEVOTHYROXINE 25 MCG TAB PO SCH (07:20)
[2017-12-31] MEDS: methylPREDNISolone SOD SUCCI 125 MG/2 ML VIAL IV SCH ×4 (07:20→23:51)
[2017-12-31] MEDS ORDERED: FUROSEMIDE 10 MG/ML 4 ML VIAL IV STA (07:41)
[2017-12-31 07:46] LABS: Glucose,Whole Blood 125 mg/dL (75-99)
[2017-12-31] MEDS: INSULIN ASPART 100 UNIT/ML 1 ML 10 ML VIAL SQ SCH ×4 (08:02→20:41)
[2017-12-31] MEDS: HEPARIN SODIUM,PORCINE 5,000 UNIT/ML 1 ML VIAL SQ SCH ×3 (08:56→23:52)
[2017-12-31] MEDS: PANTOPRAZOLE 40 MG TABLET PO SCH (08:56)
[2017-12-31] MEDS: ATORVASTATIN 40 MG TAB PO SCH (08:57)
[2017-12-31] MEDS: ASPIRIN 81 MG PO SCH (08:57)
[2017-12-31] MEDS: CLOPIDOGREL 75 MG TAB PO SCH (08:57)
[2017-12-31] MEDS: buPROPion 75 MG TAB PO SCH (08:57)
[2017-12-31] MEDS: METOPROLOL TARTRATE 25 MG TAB PO SCH ×3 (09:00→20:42)
[2017-12-31] MEDS: LOSARTAN 25 MG TAB PO SCH (09:00)
[2017-12-31] MEDS: MUPIROCIN 2% OINT 22 GM TUBE NASAL SCH ×2 (09:01→20:33)
[2017-12-31] MEDS: INSULIN DETEMIR 100 UNIT/ML 10 ML VIAL SQ SCH (10:51)
--- NOTE | 2017-12-31 11:38 | P.PN ---
Subjective Progress Note Date: 12/31/17 Principal diagnosis: Triple-vessel coronary artery disease. Preserved left ventricular function. Chronic degenerative arthritis, History of mild chronic obstructive pulmonary disease with preoperative FEV1 70% of predicted, severe peripheral vascular disease, hypertension, remote history of pulmonary embolism, hypothyroid, and previous tobacco dependence. History of fall from standing preoperatively. POD #3 triple coronary artery bypass grafting using the left internal mammary artery to the left anterior descending coronary artery, a reverse greater saphenous vein graft from the aorta to the first obtuse marginal coronary artery , a reverse greater saphenous vein graft from the aorta to the posterior descending coronary artery, endoscopic harvesting of the left greater saphenous vein, intraoperative transesophageal echocardiogram and epi-aortic scanning, intraoperative graft flow measurements using the Talkpush system. Postoperative acute blood loss anemia, an unexpected outcome. The patient is currently lying in bed in no acute distress. She is currently on 5 L nasal cannula with oxygen saturations 98%. She remains hemodynamically stable on no vasopressors. She alert and oriented 3 and following verbal commands appropriately. She has received 4 units of packed red blood cells and 2 units of FFP since surgery. Her daughter Yecenia is at her bedside, questions answered to the best of my ability. She is achieving 500 mL on her incentive spirometry with encouragement. Objective - Vital Signs Vital signs: Vital Signs Temp 97.8 F 12/31/17 08:00 Pulse 80 12/31/17 10:00 Resp 25 H 12/31/17 10:00 BP 140/73 12/31/17 10:00 Pulse Ox 99 12/31/17 10:00 Intake & Output 12/30/17 12/31/17 12/31/17 18:59 06:59 18:59 Intake Total 616.267 702 164 Output Total 965 599 768 Balance -348.733 103 -604 Weight 72.4 kg Intake: IV 504 552 164 Lactated Ringers 1,000 ml 420 480 140 @ 20 mls/hr IV .Q24H JENNIFER Rx#:[id number] Pressure Bags 84 72 24 Intake, IV Titration 112.267 Amount Calcium Chloride 1,000 mg 100 In Sodium Chloride 0.9% 100 ml @ 100 mls/hr IVPB ONCE STA Rx#:[id number] Insulin Regular 100 unit 12.267 In Sodium Chloride 0.9% 100 ml @ Per Protocol IV .Q0M JENNIFER Rx#:[id number] Oral 150 Output: Chest Tube Drainage 320 290 70 Left Pleural 290 150 40 Mediastinal 30 140 30 Drainage 40 Left Calf 40 Urine 645 269 698 Other: Voiding Method Indwelling Catheter Indwelling Catheter ABP, PAP, CO, CI - Last Documented Arterial Blood Pressure 156/117 Pulmonary Artery Pressure 33/17 Cardiac Output 4 Cardiac Index 2.6 - Constitutional General appearance: Present: cooperative, no acute distress, obese - Respiratory Details: Lungs sounds essentially diminished throughout. Respirations are symmetrical and nonlabored. Oxygen saturation is are 98% on 5 L nasal cannula. She is achieving 500 mL on her incentive spirometry with encouragement. Mediastinal and left pleural Damián chest tubes in place to low continuous wall suction. No air leak present. Right chest tubes are draining thin serosanguineous drainage. Left pleural chest tubes with 80 mL output in the last 8 hours, 430 mL output last 24 hours. Mediastinal chest tubes with 60 mL output in the last 8 hours, 200 mL output in the last 24 hours. - Cardiovascular Details: Regular rhythm and rate. S1 and S2 present, negative for S3, gallop or murmur. Sternum is stable. Bedside telemetry showing normal sinus rhythm with occasional PACs rate 74. Atrial and ventricular epicardial pacemaker wires in place and connected to bedside backup pacemaker generator with a VVI 50. Heart hugger is in place and she is demonstrating appropriate use. Knee-high AMINTA hose and sequential compression devices in place to bilateral lower extremities. Right IJ Cordis in place and functioning with continuous CVP monitoring, current CVP pressure is 15 mmHg. Right radial arterial line in place and functioning. +1 generalized edema present. - Gastrointestinal Gastrointestinal Comment(s): Abdomen is soft, nontender and nondistended. Hypoactive bowel sounds present all 4 abdominal quadrants. Tolerating oral intake. Passing flatus. - Genitourinary Genitourinary Comment(s): Segovia catheter for accurate I&O. Draining clear yellow urine. Urine output marginal with 210 mL output in the last 8 hours. - Integumentary Integumentary Comment(s): Skin is warm and dry, no clubbing or cyanosis present. Scattered ecchymotic areas to her face, bilateral upper and lower extremities. History of recent trauma from a fall preoperatively. Area of skin excoriation to her left brandon with scant serosanguineous drainage. Dressing is covering which is dry and intact. Midline sternal incision clean and dry and approximated. No drainage or redness present. Dressing clean and dry. Left leg EVH site clean dry and approximated. LIZABETH drain in place to her left lower extremity with 40 mL output in the last 8 hours. - Neurologic Neurologic: Present: CNII-XII intact - Musculoskeletal Musculoskeletal: Present: generalized weakness, strength equal bilaterally - Psychiatric Psychiatric: Present: A&O x's 3, appropriate affect - Allied health notes Allied health notes reviewed: nursing - Labs CBC & Chem 7: 12/31/17 04:40 12/31/17 04:40 Labs: Abnormal Lab Results - Last 24 Hours (Table) 12/30/17 12/30/17 12/30/17 Range/Units 11:18 12:36 17:32 WBC (3.8-10.6) k/uL RBC (3.80-5.40) m/uL Hgb (11.4-16.0) gm/dL Hct (34.0-46.0) % Plt Count (150-450) k/uL Neutrophils # (1.3-7.7) k/uL Lymphocytes # (1.0-4.8) k/uL Sodium (137-145) mmol/L BUN (7-17) mg/dL Glucose (74-99) mg/dL POC Glucose (mg/dL) 127 H 135 H 162 H (75-99) mg/dL AST (14-36) U/L Alkaline Phosphatase (38-126) U/L Total Protein (6.3-8.2) g/dL Albumin (3.5-5.0) g/dL 12/30/17 12/30/17 12/31/17 Range/Units 19:38 20:20 04:40 WBC 12.1 H (3.8-10.6) k/uL RBC 2.20 L (3.80-5.40) m/uL Hgb 7.1 L (11.4-16.0) gm/dL Hct 20.4 L (34.0-46.0) % Plt Count 95 L (150-450) k/uL Neutrophils # 11.0 H (1.3-7.7) k/uL Lymphocytes # 0.5 L (1.0-4.8) k/uL Sodium 136 L (137-145) mmol/L BUN 32 H (7-17) mg/dL Glucose 138 H (74-99) mg/dL POC Glucose (mg/dL) 127 H (75-99) mg/dL AST 67 H (14-36) U/L Alkaline Phosphatase 35 L (38-126) U/L Total Protein 5.2 L (6.3-8.2) g/dL Albumin 3.2 L (3.5-5.0) g/dL 12/31/17 12/31/17 Range/Units 04:40 07:44 WBC 12.1 H (3.8-10.6) k/uL RBC 2.16 L (3.80-5.40) m/uL Hgb 6.9 L* (11.4-16.0) gm/dL Hct 20.5 L (34.0-46.0) % Plt Count 102 L (150-450) k/uL Neutrophils # 10.8 H (1.3-7.7) k/uL Lymphocytes # 0.6 L (1.0-4.8) k/uL Sodium (137-145) mmol/L BUN (7-17) mg/dL Glucose (74-99) mg/dL POC Glucose (mg/dL) 125 H (75-99) mg/dL AST (14-36) U/L Alkaline Phosphatase (38-126) U/L Total Protein (6.3-8.2) g/dL Albumin (3.5-5.0) g/dL - Imaging and Cardiology Chest x-ray: report reviewed, image reviewed Assessment and Plan (1) History of fall Current Visit: Yes Status: Acute Code(s): Z91.81 - HISTORY OF FALLING SNOMED Code(s): 268079498 (2) CAD (coronary artery disease) Current Visit: Yes Status: Chronic Code(s): I25.10 - ATHSCL HEART DISEASE OF [place] CORONARY ARTERY W/O ANG PCTRS SNOMED Code(s): 86093261 (3) Hypertension Current Visit: Yes Status: Chronic Code(s): I10 - ESSENTIAL (PRIMARY) HYPERTENSION SNOMED Code(s): 47779347 (4) Peripheral vascular disease Current Visit: Yes Status: Chronic Code(s): I73.9 - PERIPHERAL VASCULAR DISEASE, UNSPECIFIED SNOMED Code(s): 745323267 (5) Facial contusion Current Visit: No Status: Acute Code(s): S00.83XA - CONTUSION OF OTHER PART OF HEAD, INITIAL ENCOUNTER SNOMED Code(s): 274041680 (6) History of pulmonary embolism Current Visit: No Status: Resolved Code(s): Z86.711 - PERSONAL HISTORY OF PULMONARY EMBOLISM SNOMED Code(s): 835260517 (7) Tobacco dependence in remission Current Visit: No Status: Resolved Code(s): F17.201 - NICOTINE DEPENDENCE, UNSPECIFIED, IN REMISSION SNOMED Code(s): 378471070 Plan: 1. Continue low-dose aspirin, heparin subcu, Plavix, statin and beta jaida. Will increase beta jaida therapy as tolerated. 2. Wean O2 as tolerated, encourage incentive spirometry 10 times every hour while awake. 3. Bronchodilators, steroids management per Dr. Best's recommendations. 4. Increase activity as tolerated. Out of bed for all meals. PT/OT/cardiac rehab following. 5. Will monitor daily labs and chest x-rays. 6. Lasix 40 mg IV 1 now. 7. Pain control with current medication regimen. 8. GI prophylaxis with Protonix. DVT prophylaxis with subcu heparin, SCDs. 9. Discontinue right radial arterial line. 10. Keep left pleural and mediastinal chest tubes in place today. 11. Continue Cozaar 25 mg by mouth daily. 12. More recommendations to follow based on her clinical course. Time with Patient: Greater than 30
[2017-12-31 11:42] LABS: Glucose,Whole Blood 126 mg/dL (75-99)
[2017-12-31] MEDS ORDERED: CYCLOBENZAPRINE 10 MG TAB PO PRN (12:56)
--- NOTE | 2017-12-31 13:21 | P.PN ---
Subjective Progress Note Date: 12/31/17 Mrs. Murcia is a 77-year-old female status post I to coronary bypass surgery. Patient is awake but seemed to be sleepy. Apparently there is some confusion. Patient is also having back pains. Patient is maintaining sinus rhythm. Blood pressure is stable. Her hemoglobin is 6.9. Electoral lites are within normal limits. Patient is on aspirin and Plavix, metoprolol and also Lipitor. We will continue current medical therapy Objective - Vital Signs Vital signs: Vital Signs Temp 97.8 F 12/31/17 08:00 Pulse 84 12/31/17 12:11 Resp 14 12/31/17 12:00 BP 155/88 12/31/17 12:00 Pulse Ox 97 12/31/17 12:00 Intake & Output 12/30/17 12/31/17 12/31/17 18:59 06:59 18:59 Intake Total 616.267 702 190 Output Total 965 599 868 Balance -348.733 103 -678 Weight 72.4 kg Intake: IV 504 552 190 Lactated Ringers 1,000 ml 420 480 160 @ 20 mls/hr IV .Q24H [facility] Rx#:[id number] Pressure Bags 84 72 30 Intake, IV Titration 112.267 Amount Calcium Chloride 1,000 mg 100 In Sodium Chloride 0.9% 100 ml @ 100 mls/hr IVPB ONCE [facility] Rx#:[id number] Insulin Regular 100 unit 12.267 In Sodium Chloride 0.9% 100 ml @ Per Protocol IV .Q0M [facility] Rx#:[id number] Oral 150 Output: Chest Tube Drainage 320 290 70 Left Pleural 290 150 40 Mediastinal 30 140 30 Drainage 40 Left Calf 40 Urine 645 269 798 Other: Voiding Method Indwelling Catheter Indwelling Catheter Indwelling Catheter ABP, PAP, CO, CI - Last Documented Arterial Blood Pressure 156/117 Pulmonary Artery Pressure 33/17 Cardiac Output 4 Cardiac Index 2.6 - Exam GENERAL EXAM: Patient is alert and oriented and doesn't appear to be in any acute distress HEENT: Normocephalic. Normal reaction of pupils, equal size, normal range of extraocular motion. No erythema or exudates in the throat. NECK: No masses, no nuchal rigidity. CHEST: No chest wall deformity. LUNGS: Diminished breath breath sounds HEART: S1 and S2 normal with no audible mumurs or gallops. Regular rhythm, femorals equal on both sides.. ABDOMEN: No hepatosplenomegaly, normal bowel sounds, no guarding or rigidity. SKIN: No rashes CENTRAL NERVOUS SYSTEM: No focal deficits. EXTREMITIES: No cyanosis, clubbing or edema. - Labs CBC & Chem 7: 12/31/17 04:40 12/31/17 04:40 Labs: Abnormal Lab Results - Last 24 Hours (Table) 12/30/17 12/30/17 12/30/17 Range/Units 17:32 19:38 20:20 WBC 12.1 H (3.8-10.6) k/uL RBC 2.20 L (3.80-5.40) m/uL Hgb 7.1 L (11.4-16.0) gm/dL Hct 20.4 L (34.0-46.0) % Plt Count 95 L (150-450) k/uL Neutrophils # 11.0 H (1.3-7.7) k/uL Lymphocytes # 0.5 L (1.0-4.8) k/uL Sodium (137-145) mmol/L BUN (7-17) mg/dL Glucose (74-99) mg/dL POC Glucose (mg/dL) 162 H 127 H (75-99) mg/dL AST (14-36) U/L Alkaline Phosphatase (38-126) U/L Total Protein (6.3-8.2) g/dL Albumin (3.5-5.0) g/dL 12/31/17 12/31/17 12/31/17 Range/Units 04:40 04:40 07:44 WBC 12.1 H (3.8-10.6) k/uL RBC 2.16 L (3.80-5.40) m/uL Hgb 6.9 L* (11.4-16.0) gm/dL Hct 20.5 L (34.0-46.0) % Plt Count 102 L (150-450) k/uL Neutrophils # 10.8 H (1.3-7.7) k/uL Lymphocytes # 0.6 L (1.0-4.8) k/uL Sodium 136 L (137-145) mmol/L BUN 32 H (7-17) mg/dL Glucose 138 H (74-99) mg/dL POC Glucose (mg/dL) 125 H (75-99) mg/dL AST 67 H (14-36) U/L Alkaline Phosphatase 35 L (38-126) U/L Total Protein 5.2 L (6.3-8.2) g/dL Albumin 3.2 L (3.5-5.0) g/dL 11/17/18 Range/Units 11:41 WBC (3.8-10.6) k/uL RBC (3.80-5.40) m/uL Hgb (11.4-16.0) gm/dL Hct (34.0-46.0) % Plt Count (150-450) k/uL Neutrophils # (1.3-7.7) k/uL Lymphocytes # (1.0-4.8) k/uL Sodium (137-145) mmol/L BUN (7-17) mg/dL Glucose (74-99) mg/dL POC Glucose (mg/dL) 126 H (75-99) mg/dL AST (14-36) U/L Alkaline Phosphatase (38-126) U/L Total Protein (6.3-8.2) g/dL Albumin (3.5-5.0) g/dL Assessment and Plan (1) S/P CABG (coronary artery bypass graft) Current Visit: Yes Status: Acute Code(s): Z95.1 - PRESENCE OF AORTOCORONARY BYPASS GRAFT SNOMED Code(s): 753179266 (2) CAD (coronary artery disease) Current Visit: Yes Status: Chronic Code(s): I25.10 - ATHSCL HEART DISEASE OF [place] CORONARY ARTERY W/O ANG PCTRS SNOMED Code(s): 25847973 (3) Hypertension Current Visit: Yes Status: Chronic Code(s): I10 - ESSENTIAL (PRIMARY) HYPERTENSION SNOMED Code(s): 03956361 (4) Anemia Current Visit: Yes Status: Acute Code(s): D64.9 - ANEMIA, UNSPECIFIED SNOMED Code(s): 229414102 Plan: Continue current management. Incentive spirometry and increase activity as tolerated
[2017-12-31 14:55] LABS: Glucose,Whole Blood 127 mg/dL (75-99)
[2017-12-31] MEDS: CLEVIDIPINE BUTYRATE 25 MG in EMPTY BAG 1 BAG IV SCH (16:20)
[2017-12-31 16:31] LABS: Glucose,Whole Blood 149 mg/dL (75-99)
--- NOTE | 2017-12-31 16:45 | P.PN ---
Subjective Progress Note Date: 12/31/17 This is a 77-year-old female patient, known history of COPD with a preop FEV1 of 70% of predicted, and addition to coronary artery disease, peripheral vascular disease and hypertension, who was experiencing symptoms of exertional dyspnea and angina. She underwent stress test and she was found to have reversible ischemia and based on that the patient underwent a cardiac catheterization and she was found to have extreme calcified right and left coronary arteries, severe triple-vessel disease, severe disease involving the proximal RCA, severe disease involving the ostial circumflex and severe disease involving the ostial left anterior descending coronary artery. Based on this, the patient was referred for bypass surgery and the patient underwent three- vessel bypass with LOPES to LAD. Preop echocardiogram showed a preserved LV function with an ejection fraction of 55-60%. The patient has mild concentric left ventricular hypertrophy. I'm seeing this patient immediately after she arrived to the intensive care unit. She is sedated, comfortable likely distress. She is on a mechanical ventilator. She is an assist-control mode of ventilation, at a rate of 12, tidal volume of 400 with an FiO2 of 100% and PEEP of 5. Chest x-ray showed adequate expansion of both lungs. The patient is to mediastinal and 1 pleural chest tube on the left. Output is minimal at this point. There is no evidence of any air leak. There is no evidence of pneumothorax. The the blood gas showed a pH of 7.31 with a pCO2 of 46 and FiO2 is more than 400. Based on these results, increased respiratory rate up to 18. And I also drop the FiO2 down to 50%. She is producing adequate amount of urine output. She arrived to the ICU from the operating room with 12 mics of levo fed and currently she is off pressors. Cardiac output is at 2.6 with an index of 4.4. Pulmonary artery pressures are nonelevated. On 12/29/2017, the patient is postop day #1. The patient was kept intubated and mechanically ventilated overnight as the patient was having issues with increased output from the chest tubes, anemia, low cardiac output and difficulties with her weaning parameters overnight, the patient was given a total of 2 units of packed RBC 4 hemoglobin of 5.2. Subsequent hemoglobin came up to 6.4 and following that was up down to 5.8. The patient was given an additional 2 units of packed RBC this morning. Doppler from the chest tubes have decline. Overall output has been 800 mL of the mediastinal chest tubes and at times cc from the pleural chest tube as the patient arrived from the operating room. The patient was also given fresh frozen plasma total of 2 units. The patient was kept sedated with Diprivan and she remained calm and comfortable. There were 2 attempts to wean this patient a mechanical ventilator overnight. Her weaning parameters of borderline. Subsequent blood gases showed respiratory acidosis and I did not feel comfortable extubating this patient. Based on this, the patient was kept intubated on mechanical ventilator throughout the night. This morning, following transfusion with 2 units of packed RBC, the patient seemed to hemodynamically stable and she was doing okay. As such she was taken off the sedation and she was given a spelled his breathing trial with a pressure support of 5 and a PEEP of 5. His subsequent blood gases showed a mild component of respiratory acidosis with pCO2 of 50 and pH of 7.30. At that point, the patient was awake and she was following commands. She did not show any signs of respiratory distress. I decide to extubate this patient to a nasal cannula. Postextubation, the patient was followed up very closely. She was noted to bronchospastic and wheezy. Based on that, she was given IV Solu-Medrol. Following that she was placed on a BiPAP at a pressure of 14/5 cm of water with an FiO2 of 50%. The most recent blood gases showed a pH of 7.34 with a pCO2 of 42 and pO2 of 65 and this was done and FiO2 of 40%. The patient was somewhat restless and was getting agitated in bed. Based on that, I put her on Precedex and currently it is at 0.4 g per KG per hour. The chest x-ray from earlier this morning showed small better pleural effusion. There was cardiomegaly. [place] catheter was in place. Rest of the chest were all in place. There was some limited bibasilar consolidation. She is afebrile. She is hemodynamically stable and currently the cardiac index is above 2.. Most recent hemoglobin is at 7.2. She is afebrile. She is on no pressors at this point in time. Cardiac rhythm is sinus. On 12/30/2017 the patient is postop day #2. As noted, and as mentioned earlier , the patient was extubated yesterday and postextubation the patient became bronchospastic and wheezy and she had significant respiratory distress. At that point she was started on BiPAP for respiratory support at a pressure of 14/ 6 cm of water. FiO2 was kept at 50%. The patient had some difficulties initially to tolerate the BiPAP. She was restarted on Precedex and the dose was titrated to control her agitation. With these changes, she did extremely well and overnight she was kept on a BiPAP and in the center she was placed on a combination of bronchodilators steroids which optimize her COPD exacerbation. This morning, the patient was taken off the BiPAP and she was placed on 5 L of oxygen nasal cannula. The chest x-ray from today shows a small right-sided pleural effusion. Chest tubes are all in place and output is diminished compared to yesterday with a stable hemoglobin. Hemodynamically, the patient is on no pressors. Cardiac index is at 1.9. She is producing adequate urine output. Hemoglobin is also stable. Based on all this, I weaned her off the Precedex earlier this morning and subsequently discontinued the BiPAP and currently she sometimes of oxygen by nasal cannula. She is breathing easier. She is less short of breath compared to yesterday. Chest tubes are all in place. Sternum stable clean and intact. The patient has a skin laceration left lower extremity and local wound care is being done and the LIZABETH drain is also in place. She is moving all 4 extremities without any limitation. No nausea. No vomiting. No emesis. No cardiac arrhythmias. She has a hemoglobin of 7.4. White cell count is nonelevated. Blood work and electrodes are all within normal limits earlier this morning. Blood sugars of 118. On 12/31/2017, I'm seeing this patient for a follow-up. Our efforts have succeeded in weaning patient off the BiPAP. Note that yesterday she became short of breath and she had to be placed on BiPAP with low dose Precedex for discomfort and agitation and restlessness. This morning she was weaned off and she is currently on 5 L of oxygen by nasal cannula sitting up on a recliner. Extremities no chest tubes are in place. The left pleural chest tube in the right pleural chest were also in place. The patient has put out approximately 80 mL from the left-sided pleural chest tube and frontal 30 mL over the past 24 hours. He still chest tubes have drain 60 mL over the past 8 hours and 12 mL over the past 24 hours. We're considering removal at least on the chest tube. The patient is pulling approximately 500 mL on the incentive spirometer. The LIZABETH drains in place in the left lower extremity and output has been around 48 and she is over the past 8 hours. There is a skin laceration which is being taken care of by local wound care. Sternum stable clean and intact. Hemodynamically stable. A dose of Lasix 40 mg IV push was given today. The cardiac rhythm is sinus. The patient is less bronchus spastic and wheezy compared to yesterday. She remains on DuoNeb neb treatments around the clock, she is also on a combination with as a night and Perforomist nebulized treatments twice a day and IV Solu Medrol. Hemoglobin from today is 6.9 and we' re holding of any blood transfusions for now. Patient is currently on Levemir 12 units in addition to coverage. Objective - Vital Signs Vital signs: Vital Signs Temp 97.8 F 12/31/17 08:00 Pulse 101 H 12/31/17 16:27 Resp 21 12/31/17 16:00 BP 142/119 12/31/17 16:00 Pulse Ox 99 12/31/17 16:00 Intake & Output 12/30/17 12/31/17 12/31/17 18:59 06:59 18:59 Intake Total 616.267 702 320 Output Total 572 128 1647 Balance -348.733 103 -1073 Weight 72.4 kg Intake: IV 504 552 320 Lactated Ringers 1,000 ml 420 480 260 @ 20 mls/hr IV .Q24H [facility] Rx#:[id number] Pressure Bags 84 72 60 Intake, IV Titration 112.267 Amount Calcium Chloride 1,000 mg 100 In Sodium Chloride 0.9% 100 ml @ 100 mls/hr IVPB ONCE [facility] Rx#:[id number] Insulin Regular 100 unit 12.267 In Sodium Chloride 0.9% 100 ml @ Per Protocol IV .Q0M [facility] Rx#:[id number] Oral 150 Output: Chest Tube Drainage 320 290 220 Left Pleural 290 150 130 Mediastinal 30 140 90 Drainage 40 60 Left Calf 40 60 Urine 151 513 6562 Other: Voiding Method Indwelling Catheter Indwelling Catheter Indwelling Catheter ABP, PAP, CO, CI - Last Documented Arterial Blood Pressure 156/117 Pulmonary Artery Pressure 33/17 Cardiac Output 4 Cardiac Index 2.6 - Exam Gen. appearance the patient is currently awake and alert and she is resting comfortably on the decline. No signs of respiratory distress. Head exam was generally normal. There was no scleral icterus or corneal arcus. Mucous membranes were moist. Neck was supple and without jugular venous distension, thyromegaly, or carotid bruits. Carotids were easily palpable bilaterally. There was no adenopathy. The patient has a right IJ [place] catheter in place. No stridor. No neck masses. No hematoma. Lungs sounds are diminished bilaterally and the patient is prolongation of expiratory phase of breathing and scattered expiratory wheezes.lung his bilaterally. Sternum stable clean and intact. The patient is to mediastinal chest tubes and 1 left-sided pleural chest tube in place. Cardiac exam revealed the PMI to be normally situated and sized. The rhythm was regular and no extrasystoles were noted during several minutes of auscultation. The first and second heart sounds were normal and physiologic splitting of the second heart sound was noted. There were no murmurs, rubs, clicks, or gallops. Abdominal exam revealed normal bowel sounds. The abdomen was soft, non-tender, and without masses, organomegaly, or appreciable enlargement of the abdominal aorta. Examination of the extremities revealed adequate pulses. There is areas of skin bruising related to surgical intervention. There is also LIZABETH drain in the left lower extremity. Surgical wound sites are all dry clean and intact. The patient has a laceration of the skin in the left lower extremity this was noted by the surgeon and appropriate dressing is applied and the patient is a LIZABETH drain within the left lower extremity wounds. neurologically, the patient follows commands and moves all 4 extremities. The patient is awake and alert and she is currently off sedation. - Labs CBC & Chem 7: 12/31/17 04:40 12/31/17 04:40 Labs: Abnormal Lab Results - Last 24 Hours (Table) 12/30/17 12/30/17 12/30/17 Range/Units 17:32 19:38 20:20 WBC 12.1 H (3.8-10.6) k/uL RBC 2.20 L (3.80-5.40) m/uL Hgb 7.1 L (11.4-16.0) gm/dL Hct 20.4 L (34.0-46.0) % Plt Count 95 L (150-450) k/uL Neutrophils # 11.0 H (1.3-7.7) k/uL Lymphocytes # 0.5 L (1.0-4.8) k/uL Sodium (137-145) mmol/L BUN (7-17) mg/dL Glucose (74-99) mg/dL POC Glucose (mg/dL) 162 H 127 H (75-99) mg/dL AST (14-36) U/L Alkaline Phosphatase (38-126) U/L Total Protein (6.3-8.2) g/dL Albumin (3.5-5.0) g/dL 12/31/17 12/31/17 12/31/17 Range/Units 04:40 04:40 07:44 WBC 12.1 H (3.8-10.6) k/uL RBC 2.16 L (3.80-5.40) m/uL Hgb 6.9 L* (11.4-16.0) gm/dL Hct 20.5 L (34.0-46.0) % Plt Count 102 L (150-450) k/uL Neutrophils # 10.8 H (1.3-7.7) k/uL Lymphocytes # 0.6 L (1.0-4.8) k/uL Sodium 136 L (137-145) mmol/L BUN 32 H (7-17) mg/dL Glucose 138 H (74-99) mg/dL POC Glucose (mg/dL) 125 H (75-99) mg/dL AST 67 H (14-36) U/L Alkaline Phosphatase 35 L (38-126) U/L Total Protein 5.2 L (6.3-8.2) g/dL Albumin 3.2 L (3.5-5.0) g/dL 12/31/17 12/31/17 12/31/17 Range/Units 11:41 14:54 16:29 WBC (3.8-10.6) k/uL RBC (3.80-5.40) m/uL Hgb (11.4-16.0) gm/dL Hct (34.0-46.0) % Plt Count (150-450) k/uL Neutrophils # (1.3-7.7) k/uL Lymphocytes # (1.0-4.8) k/uL Sodium (137-145) mmol/L BUN (7-17) mg/dL Glucose (74-99) mg/dL POC Glucose (mg/dL) 126 H 127 H 149 H (75-99) mg/dL AST (14-36) U/L Alkaline Phosphatase (38-126) U/L Total Protein (6.3-8.2) g/dL Albumin (3.5-5.0) g/dL Assessment and Plan Plan: Assessment 1 triple-vessel coronary artery disease, symptomatic with exertional angina and shortness of breath, patient underwent three-vessel bypass surgery and currently she is postop day #3 2 post thoracotomy, with post extubation bronchospasm and wheezing typically of an underlying COPD exacerbation, managed by bronchodilators, steroids and noninvasive positive pressure ventilation with BiPAP at a pressure of 14/5 cm of water. Currently she is off BiPAP at 5 L per minute nasal cannula. Chest x- ray was reviewed and there is small right-sided pleural effusion. Sternum stable clean and intact. Chest tubes are all in place with marked diminished in the output from the mediastinal chest tubes. 3 anemia with significant drop in hemoglobin the patient got transfused packed RBC and currently hemoglobin is stable up to 6.9 4 COPD, severe at baseline FEV1 in the 70% range, preoperatively. 5 chronic back pain 6 hypothyroidism 7 hypertension 8 peripheral vascular disease Plan Consider removal of the mediastinal chest tubes. use BiPAP on and off during the day for shortness of breath. Continue bronchodilators. Continue systemic steroids. Monitor hemoglobin and consider transfusion if there is any further drop in hemoglobin. Monitor the output from the LIZABETH drain and the pleural chest tube. Hemodynamically stable. The patient is on the condition aspirin statins and beta blockers. Synthroid sedative resume. Blood sugars are being managed. Her recovery is slow. She is still weak on incentive spirometer pulling approximately 500 mL. Pain is under adequate control for now. I think she is slow to recovery we'll continue watching. ICU for another 24 hours.
[2017-12-31] MEDS: SENNOSIDES-DOCUSATE SODIUM 1 EACH TAB PO SCH (20:34)
[2017-12-31 20:39] LABS: Glucose,Whole Blood 134 mg/dL (75-99)
--- NOTE | 2017-12-31 20:53 | P.PN ---
Subjective Progress Note Date: 12/31/17 Principal diagnosis: Triple vessel bypass Patient continued to be hemodynamically stable and has weaned off BiPAP to nasal cannula successfully glucose has been slightly elevated and patient placed on insulin sliding scale. Patient still on steroids and bronchodilator and seems to be improving overall Objective - Vital Signs Vital signs: Vital Signs Temp 97.8 F 12/31/17 08:00 Pulse 108 H 12/31/17 19:40 Resp 14 12/31/17 19:00 BP 159/78 12/31/17 19:00 Pulse Ox 94 L 12/31/17 19:00 Intake & Output 12/31/17 12/31/17 01/01/18 06:59 18:59 06:59 Intake Total 702 354 23 Output Total 599 1438 35 Balance 103 -1084 -12 Intake: IV 552 354 23 Lactated Ringers 1,000 ml 480 300 20 @ 20 mls/hr IV .Q24H [facility] Rx#:[id number] Pressure Bags 72 54 3 Oral 150 Output: Chest Tube Drainage 290 220 0 Left Pleural 150 130 0 Mediastinal 140 90 0 Drainage 40 60 Left Calf 40 60 Urine 269 1158 35 Other: Voiding Method Indwelling Catheter Indwelling Catheter ABP, PAP, CO, CI - Last Documented Arterial Blood Pressure 156/117 Pulmonary Artery Pressure 33/17 Cardiac Output 4 Cardiac Index 2.6 - Exam Lungs diminished bilaterally Heart normal S1 and S2 Abdomen soft no tenderness past fall sounds in all 4 quadrant Psych patient is alert and oriented following commands Skin no new rash Chest tubes in place [place] catheter intact with clear urine in the bag - Labs CBC & Chem 7: 12/31/17 04:40 12/31/17 04:40 Labs: Abnormal Lab Results - Last 24 Hours (Table) 12/31/17 12/31/17 12/31/17 Range/Units 04:40 04:40 07:44 WBC 12.1 H (3.8-10.6) k/uL RBC 2.16 L (3.80-5.40) m/uL Hgb 6.9 L* (11.4-16.0) gm/dL Hct 20.5 L (34.0-46.0) % Plt Count 102 L (150-450) k/uL Neutrophils # 10.8 H (1.3-7.7) k/uL Lymphocytes # 0.6 L (1.0-4.8) k/uL Sodium 136 L (137-145) mmol/L BUN 32 H (7-17) mg/dL Glucose 138 H (74-99) mg/dL POC Glucose (mg/dL) 125 H (75-99) mg/dL AST 67 H (14-36) U/L Alkaline Phosphatase 35 L (38-126) U/L Total Protein 5.2 L (6.3-8.2) g/dL Albumin 3.2 L (3.5-5.0) g/dL 12/31/17 12/31/17 12/31/17 Range/Units 11:41 14:54 16:29 WBC (3.8-10.6) k/uL RBC (3.80-5.40) m/uL Hgb (11.4-16.0) gm/dL Hct (34.0-46.0) % Plt Count (150-450) k/uL Neutrophils # (1.3-7.7) k/uL Lymphocytes # (1.0-4.8) k/uL Sodium (137-145) mmol/L BUN (7-17) mg/dL Glucose (74-99) mg/dL POC Glucose (mg/dL) 126 H 127 H 149 H (75-99) mg/dL AST (14-36) U/L Alkaline Phosphatase (38-126) U/L Total Protein (6.3-8.2) g/dL Albumin (3.5-5.0) g/dL 12/31/17 Range/Units 20:37 WBC (3.8-10.6) k/uL RBC (3.80-5.40) m/uL Hgb (11.4-16.0) gm/dL Hct (34.0-46.0) % Plt Count (150-450) k/uL Neutrophils # (1.3-7.7) k/uL Lymphocytes # (1.0-4.8) k/uL Sodium (137-145) mmol/L BUN (7-17) mg/dL Glucose (74-99) mg/dL POC Glucose (mg/dL) 134 H (75-99) mg/dL AST (14-36) U/L Alkaline Phosphatase (38-126) U/L Total Protein (6.3-8.2) g/dL Albumin (3.5-5.0) g/dL Assessment and Plan Assessment: 1. status post three-vessel bypass 2. COPD with mild exacerbation 3. Hyperglycemia secondary to steroid use 4. Anemia secondary to blood loss 5. Hypertension 6. Hyperlipidemia 7. Debility and deconditioning Patient was successfully weaned off BiPAP and currently on nasal cannula will encourage incentive spirometer use, continue with bronchodilator, wean off steroids as tolerated, continue with insulin sliding scale discussed with the nursing staff and her daughter at the bedside, consider transfusion per primary team recommendation, start physical anicteric patient on therapy per primary team recommendation
--- NOTE | 2018-01-01 06:23 | XR ---
EXAMINATION TYPE: XR chest 1V portable DATE OF EXAM: 01/01/2018 HISTORY: Postoperative CABG. REFERENCE: Previous study dated 12/31/2017. FINDINGS: There has been a midline sternotomy. Right internal jugular sheath remains in place. There is bibasilar airspace disease. There are small, bilateral effusions. Heart size is upper limits of normal. IMPRESSION: NO SIGNIFICANT INTERVAL CHANGE IN THE APPEARANCE OF THE CHEST.
[2018-01-01 07:01] LABS: Basophils % (A) 0 %; Eosinophils % (A) 0 %; Lymphocytes % (A) 7 %; MCH 32.1 pg (25.0-35.0); MCHC 33.5 g/dL (31.0-37.0); MCV 95.9 fL (80.0-100.0); Mean Platelet Volume 7.4; Monocytes # (A) 0.6 k/uL (0-1.0); Monocytes % (A) 5 %; Neutrophils # (A) 12.7 k/uL (1.3-7.7); Neutrophils % (A) 88 %; Platelet Count 128 k/uL (150-450); RBC 2.19 m/uL (3.80-5.40); RDW 15.7 % (11.5-15.5); WBC 14.4 k/uL (3.8-10.6)
[2018-01-01] MEDS: IPRATROPIUM-ALBUTEROL 3 ML NEB INHALATION SCH ×4 (07:13→19:16)
[2018-01-01] MEDS: BUDESONIDE 0.5 MG/2 ML NEBU INHALATION SCH ×2 (07:13→19:16)
[2018-01-01] MEDS: FORMOTEROL FUMARATE 20 MCG/2 ML NEBU INHALATION SCH ×2 (07:13→19:16)
[2018-01-01 07:19] LABS: ALT 41 U/L (9-52); AST 69 U/L (14-36); Albumin 3.7 g/dL (3.5-5.0); Alkaline Phosphatase 46 U/L (38-126); Anion Gap 5 mmol/L; Blood Urea Nitrogen 33 mg/dL (7-17); Calcium 8.9 mg/dL (8.4-10.2); Carbon Dioxide 28 mmol/L (22-30); Chloride 103 mmol/L (98-107); Glucose 108 mg/dL (74-99); Magnesium 2.3 mg/dL (1.6-2.3); Potassium 4.3 mmol/L (3.5-5.1); Sodium 136 mmol/L (137-145); Total Bilirubin 0.7 mg/dL (0.2-1.3); Total Protein 5.8 g/dL (6.3-8.2)
[2018-01-01 07:25] LABS: Glucose,Whole Blood 102 mg/dL (75-99)
[2018-01-01] MEDS: methylPREDNISolone SOD SUCCI 125 MG/2 ML VIAL IV SCH (07:51)
[2018-01-01] MEDS: LEVOTHYROXINE 25 MCG TAB PO SCH (07:54)
[2018-01-01] MEDS: LACTATED RINGERS 1,000 ML IV SCH (08:15)
[2018-01-01] MEDS: INSULIN ASPART 100 UNIT/ML 1 ML 10 ML VIAL SQ SCH ×4 (08:15→20:12)
[2018-01-01] MEDS: PANTOPRAZOLE 40 MG TABLET PO SCH (08:16)
[2018-01-01] MEDS: CLOPIDOGREL 75 MG TAB PO SCH (08:16)
[2018-01-01] MEDS: ASPIRIN 81 MG PO SCH (08:16)
[2018-01-01] MEDS: METOPROLOL TARTRATE 25 MG TAB PO SCH (08:16)
[2018-01-01] MEDS: ATORVASTATIN 40 MG TAB PO SCH (08:16)
[2018-01-01] MEDS: HEPARIN SODIUM,PORCINE 5,000 UNIT/ML 1 ML VIAL SQ SCH ×2 (08:16→16:08)
[2018-01-01] MEDS: buPROPion 75 MG TAB PO SCH (08:16)
[2018-01-01] MEDS: LOSARTAN 25 MG TAB PO SCH (08:17)
[2018-01-01] MEDS ORDERED: METOPROLOL TARTRATE 25 MG TAB PO STA (08:32)
[2018-01-01] MEDS ORDERED: FUROSEMIDE 10 MG/ML 4 ML VIAL IV STA (09:02)
[2018-01-01] MEDS: INSULIN DETEMIR 100 UNIT/ML 10 ML VIAL SQ SCH (10:00)
--- NOTE | 2018-01-01 10:08 | P.PN ---
Subjective Progress Note Date: 01/01/18 Mrs. Murcia is a 77-year-old female status post I to coronary bypass surgery. Patient is awake but seemed to be sleepy. Apparently there is some confusion. Patient is also having back pains. Patient is maintaining sinus rhythm. Blood pressure is stable. Her hemoglobin is 6.9. Electoral lites are within normal limits. Patient is on aspirin and Plavix, metoprolol and also Lipitor. We will continue current medical therapy. On 01/01/2018: This is a 77-year-old female status post bypass surgery. Had a prolonged course mostly respiratory issues. The patient seemed more alert today. No acute distress. Still has expiratory wheezes. Chest tubes are being taken out. Central line is also being taken out. Her kidney function remained stable. Patient is maintaining sinus rhythm. Dose of the beta jaida is increased. Continue current management Objective - Vital Signs Vital signs: Vital Signs Temp 97.6 F 01/01/18 08:00 Pulse 80 01/01/18 10:00 Resp 15 01/01/18 10:00 BP 147/73 01/01/18 10:00 Pulse Ox 98 01/01/18 10:00 Intake & Output 12/31/17 01/01/18 01/01/18 18:59 06:59 18:59 Intake Total 354 776 92 Output Total 1438 722 251 Balance -1084 54 -159 Intake: IV 354 276 92 Lactated Ringers 1,000 ml 300 240 80 @ 20 mls/hr IV .Q24H [facility] Rx#:[id number] Pressure Bags 54 36 12 Oral 500 Output: Chest Tube Drainage 220 172 26 Left Pleural 130 112 16 Mediastinal 90 60 10 Drainage 60 45 Left Calf 60 45 Urine 1158 505 225 Other: Voiding Method Indwelling Catheter Indwelling Catheter ABP, PAP, CO, CI - Last Documented Arterial Blood Pressure 156/117 Pulmonary Artery Pressure 33/17 Cardiac Output 4 Cardiac Index 2.6 - Exam GENERAL EXAM: Patient is alert and oriented and doesn't appear to be in any acute distress HEENT: Normocephalic. Normal reaction of pupils, equal size, normal range of extraocular motion. No erythema or exudates in the throat. NECK: No masses, no nuchal rigidity. CHEST: No chest wall deformity. LUNGS: Diminished breath breath sounds. Expiratory wheezes HEART: S1 and S2 normal with no audible mumurs or gallops. Regular rhythm, femorals equal on both sides.. ABDOMEN: No hepatosplenomegaly, normal bowel sounds, no guarding or rigidity. SKIN: No rashes CENTRAL NERVOUS SYSTEM: No focal deficits. EXTREMITIES: No cyanosis, clubbing or edema. - Labs CBC & Chem 7: 01/01/18 06:25 01/01/18 06:25 Labs: Abnormal Lab Results - Last 24 Hours (Table) 12/31/17 12/31/17 12/31/17 Range/Units 11:41 14:54 16:29 WBC (3.8-10.6) k/uL RBC (3.80-5.40) m/uL Hgb (11.4-16.0) gm/dL Hct (34.0-46.0) % RDW (11.5-15.5) % Plt Count (150-450) k/uL Neutrophils # (1.3-7.7) k/uL Sodium (137-145) mmol/L BUN (7-17) mg/dL Glucose (74-99) mg/dL POC Glucose (mg/dL) 126 H 127 H 149 H (75-99) mg/dL AST (14-36) U/L Total Protein (6.3-8.2) g/dL 12/31/17 01/01/18 01/01/18 Range/Units 20:37 06:25 06:25 WBC 14.4 H (3.8-10.6) k/uL RBC 2.19 L (3.80-5.40) m/uL Hgb 7.0 L (11.4-16.0) gm/dL Hct 21.0 L (34.0-46.0) % RDW 15.7 H (11.5-15.5) % Plt Count 128 L (150-450) k/uL Neutrophils # 12.7 H (1.3-7.7) k/uL Sodium 136 L (137-145) mmol/L BUN 33 H (7-17) mg/dL Glucose 108 H (74-99) mg/dL POC Glucose (mg/dL) 134 H (75-99) mg/dL AST 69 H (14-36) U/L Total Protein 5.8 L (6.3-8.2) g/dL 11/18/18 Range/Units 07:24 WBC (3.8-10.6) k/uL RBC (3.80-5.40) m/uL Hgb (11.4-16.0) gm/dL Hct (34.0-46.0) % RDW (11.5-15.5) % Plt Count (150-450) k/uL Neutrophils # (1.3-7.7) k/uL Sodium (137-145) mmol/L BUN (7-17) mg/dL Glucose (74-99) mg/dL POC Glucose (mg/dL) 102 H (75-99) mg/dL AST (14-36) U/L Total Protein (6.3-8.2) g/dL Assessment and Plan (1) S/P CABG (coronary artery bypass graft) Current Visit: Yes Status: Acute Code(s): Z95.1 - PRESENCE OF AORTOCORONARY BYPASS GRAFT SNOMED Code(s): 721393473 (2) CAD (coronary artery disease) Current Visit: Yes Status: Chronic Code(s): I25.10 - ATHSCL HEART DISEASE OF [place] CORONARY ARTERY W/O ANG PCTRS SNOMED Code(s): 64208327 (3) Hypertension Current Visit: Yes Status: Chronic Code(s): I10 - ESSENTIAL (PRIMARY) HYPERTENSION SNOMED Code(s): 27511176 (4) Anemia Current Visit: Yes Status: Acute Code(s): D64.9 - ANEMIA, UNSPECIFIED SNOMED Code(s): 211589172 Plan: Continue current medical therapy. Increase activity as tolerated. Pulmonary toilet
[2018-01-01] MEDS: HYDROcodone/APAP 5-325MG 1 EACH TAB PO PRN ×2 (11:23→20:34)
[2018-01-01 12:17] LABS: Glucose,Whole Blood 114 mg/dL (75-99)
--- NOTE | 2018-01-01 14:18 | P.PN ---
Subjective Progress Note Date: 01/01/18 This is a 77-year-old female patient, known history of COPD with a preop FEV1 of 70% of predicted, and addition to coronary artery disease, peripheral vascular disease and hypertension, who was experiencing symptoms of exertional dyspnea and angina. She underwent stress test and she was found to have reversible ischemia and based on that the patient underwent a cardiac catheterization and she was found to have extreme calcified right and left coronary arteries, severe triple-vessel disease, severe disease involving the proximal RCA, severe disease involving the ostial circumflex and severe disease involving the ostial left anterior descending coronary artery. Based on this, the patient was referred for bypass surgery and the patient underwent three- vessel bypass with LOPES to LAD. Preop echocardiogram showed a preserved LV function with an ejection fraction of 55-60%. The patient has mild concentric left ventricular hypertrophy. I'm seeing this patient immediately after she arrived to the intensive care unit. She is sedated, comfortable likely distress. She is on a mechanical ventilator. She is an assist-control mode of ventilation, at a rate of 12, tidal volume of 400 with an FiO2 of 100% and PEEP of 5. Chest x-ray showed adequate expansion of both lungs. The patient is to mediastinal and 1 pleural chest tube on the left. Output is minimal at this point. There is no evidence of any air leak. There is no evidence of pneumothorax. The the blood gas showed a pH of 7.31 with a pCO2 of 46 and FiO2 is more than 400. Based on these results, increased respiratory rate up to 18. And I also drop the FiO2 down to 50%. She is producing adequate amount of urine output. She arrived to the ICU from the operating room with 12 mics of levo fed and currently she is off pressors. Cardiac output is at 2.6 with an index of 4.4. Pulmonary artery pressures are nonelevated. On 12/29/2017, the patient is postop day #1. The patient was kept intubated and mechanically ventilated overnight as the patient was having issues with increased output from the chest tubes, anemia, low cardiac output and difficulties with her weaning parameters overnight, the patient was given a total of 2 units of packed RBC 4 hemoglobin of 5.2. Subsequent hemoglobin came up to 6.4 and following that was up down to 5.8. The patient was given an additional 2 units of packed RBC this morning. Doppler from the chest tubes have decline. Overall output has been 800 mL of the mediastinal chest tubes and at times cc from the pleural chest tube as the patient arrived from the operating room. The patient was also given fresh frozen plasma total of 2 units. The patient was kept sedated with Diprivan and she remained calm and comfortable. There were 2 attempts to wean this patient a mechanical ventilator overnight. Her weaning parameters of borderline. Subsequent blood gases showed respiratory acidosis and I did not feel comfortable extubating this patient. Based on this, the patient was kept intubated on mechanical ventilator throughout the night. This morning, following transfusion with 2 units of packed RBC, the patient seemed to hemodynamically stable and she was doing okay. As such she was taken off the sedation and she was given a spelled his breathing trial with a pressure support of 5 and a PEEP of 5. His subsequent blood gases showed a mild component of respiratory acidosis with pCO2 of 50 and pH of 7.30. At that point, the patient was awake and she was following commands. She did not show any signs of respiratory distress. I decide to extubate this patient to a nasal cannula. Postextubation, the patient was followed up very closely. She was noted to bronchospastic and wheezy. Based on that, she was given IV Solu-Medrol. Following that she was placed on a BiPAP at a pressure of 14/5 cm of water with an FiO2 of 50%. The most recent blood gases showed a pH of 7.34 with a pCO2 of 42 and pO2 of 65 and this was done and FiO2 of 40%. The patient was somewhat restless and was getting agitated in bed. Based on that, I put her on Precedex and currently it is at 0.4 g per KG per hour. The chest x-ray from earlier this morning showed small better pleural effusion. There was cardiomegaly. [place] catheter was in place. Rest of the chest were all in place. There was some limited bibasilar consolidation. She is afebrile. She is hemodynamically stable and currently the cardiac index is above 2.. Most recent hemoglobin is at 7.2. She is afebrile. She is on no pressors at this point in time. Cardiac rhythm is sinus. On 12/30/2017 the patient is postop day #2. As noted, and as mentioned earlier , the patient was extubated yesterday and postextubation the patient became bronchospastic and wheezy and she had significant respiratory distress. At that point she was started on BiPAP for respiratory support at a pressure of 14/ 6 cm of water. FiO2 was kept at 50%. The patient had some difficulties initially to tolerate the BiPAP. She was restarted on Precedex and the dose was titrated to control her agitation. With these changes, she did extremely well and overnight she was kept on a BiPAP and in the center she was placed on a combination of bronchodilators steroids which optimize her COPD exacerbation. This morning, the patient was taken off the BiPAP and she was placed on 5 L of oxygen nasal cannula. The chest x-ray from today shows a small right-sided pleural effusion. Chest tubes are all in place and output is diminished compared to yesterday with a stable hemoglobin. Hemodynamically, the patient is on no pressors. Cardiac index is at 1.9. She is producing adequate urine output. Hemoglobin is also stable. Based on all this, I weaned her off the Precedex earlier this morning and subsequently discontinued the BiPAP and currently she sometimes of oxygen by nasal cannula. She is breathing easier. She is less short of breath compared to yesterday. Chest tubes are all in place. Sternum stable clean and intact. The patient has a skin laceration left lower extremity and local wound care is being done and the LIZABETH drain is also in place. She is moving all 4 extremities without any limitation. No nausea. No vomiting. No emesis. No cardiac arrhythmias. She has a hemoglobin of 7.4. White cell count is nonelevated. Blood work and electrodes are all within normal limits earlier this morning. Blood sugars of 118. On 12/31/2017, I'm seeing this patient for a follow-up. Our efforts have succeeded in weaning patient off the BiPAP. Note that yesterday she became short of breath and she had to be placed on BiPAP with low dose Precedex for discomfort and agitation and restlessness. This morning she was weaned off and she is currently on 5 L of oxygen by nasal cannula sitting up on a recliner. Extremities no chest tubes are in place. The left pleural chest tube in the right pleural chest were also in place. The patient has put out approximately 80 mL from the left-sided pleural chest tube and frontal 30 mL over the past 24 hours. He still chest tubes have drain 60 mL over the past 8 hours and 12 mL over the past 24 hours. We're considering removal at least on the chest tube. The patient is pulling approximately 500 mL on the incentive spirometer. The LIZABETH drains in place in the left lower extremity and output has been around 48 and she is over the past 8 hours. There is a skin laceration which is being taken care of by local wound care. Sternum stable clean and intact. Hemodynamically stable. A dose of Lasix 40 mg IV push was given today. The cardiac rhythm is sinus. The patient is less bronchus spastic and wheezy compared to yesterday. She remains on DuoNeb neb treatments around the clock, she is also on a combination with as a night and Perforomist nebulized treatments twice a day and IV Solu Medrol. Hemoglobin from today is 6.9 and we' re holding of any blood transfusions for now. Patient is currently on Levemir 12 units in addition to coverage. On 01/01/2018, I'm seeing this patient for a follow-up. She remains in the intensive care unit. She is currently on oxygen by nasal cannula. Breathing is easier. Less short of breath. Chest tubes will be removed today and output has been minimal for now and the patient's chest x-ray showing small better pleural effusion more so on the right and the patient was given a dose of Lasix. Sternum stable clean and intact. Cardiac rhythm is sinus. The patient is using incentive spirometer and she is pulling approximately 500 mL she is equivalent to yesterday. Note that the left-sided chest tube has drained approximately 105 over the past 8 hours and to 45 over the past 24 hours. As for the mediastinal chest tubes have drain 60 mL over the past 8 hours and 140s over the past 24 hours. The fluid balance is -1.3 L over the past 24 hours. The [place] catheter has been removed. The patient is on bronchodilators. The patient is on systemic steroids. Hemoglobin is stable at 7.9. Normal renal function for now. No altered mentation. She is awake and following commands and answering questions appropriately. Chest x-ray was reviewed. Objective - Vital Signs Vital signs: Vital Signs Temp 97.6 F 01/01/18 08:00 Pulse 101 H 01/01/18 14:00 Resp 12 01/01/18 14:00 BP 166/87 01/01/18 14:00 Pulse Ox 94 L 01/01/18 14:00 Intake & Output 12/31/17 01/01/18 01/01/18 18:59 06:59 18:59 Intake Total 354 776 92 Output Total 7213 027 1170 Balance -1084 54 -1559 Intake: IV 354 276 92 Lactated Ringers 1,000 ml 300 240 80 @ 20 mls/hr IV .Q24H [facility] Rx#:[id number] Pressure Bags 54 36 12 Oral 500 Output: Chest Tube Drainage 220 172 26 Left Pleural 130 112 16 Mediastinal 90 60 10 Drainage 60 45 Left Calf 60 45 Urine 9532 822 2638 Other: Voiding Method Indwelling Catheter Indwelling Catheter Indwelling Catheter ABP, PAP, CO, CI - Last Documented Arterial Blood Pressure 156/117 Pulmonary Artery Pressure 33/17 Cardiac Output 4 Cardiac Index 2.6 - Exam Gen. appearance the patient is currently awake and alert and she is resting comfortably on the decline. No signs of respiratory distress. Head exam was generally normal. There was no scleral icterus or corneal arcus. Mucous membranes were moist. Neck was supple and without jugular venous distension, thyromegaly, or carotid bruits. Carotids were easily palpable bilaterally. There was no adenopathy. The patient has a right IJ [place] catheter removed. No stridor. No neck masses. No hematoma. Lungs sounds are diminished bilaterally and breath sounds are equal and bilaterally. Sternum stable clean and intact. The patient is to mediastinal chest tubes and 1 left-sided pleural chest tube in place. Cardiac exam revealed the PMI to be normally situated and sized. The rhythm was regular and no extrasystoles were noted during several minutes of auscultation. The first and second heart sounds were normal and physiologic splitting of the second heart sound was noted. There were no murmurs, rubs, clicks, or gallops. Abdominal exam revealed normal bowel sounds. The abdomen was soft, non-tender, and without masses, organomegaly, or appreciable enlargement of the abdominal aorta. Examination of the extremities revealed adequate pulses. There is areas of skin bruising related to surgical intervention. There is also LIZABETH drain in the left lower extremity. Surgical wound sites are all dry clean and intact. The patient has a laceration of the skin in the left lower extremity this was noted by the surgeon and appropriate dressing is applied and the patient is a LIZABETH drain within the left lower extremity wounds. neurologically, the patient follows commands and moves all 4 extremities. The patient is awake and alert and she is currently off sedation. - Labs CBC & Chem 7: 01/01/18 06:25 01/01/18 06:25 Labs: Abnormal Lab Results - Last 24 Hours (Table) 12/31/17 12/31/17 12/31/17 Range/Units 14:54 16:29 20:37 WBC (3.8-10.6) k/uL RBC (3.80-5.40) m/uL Hgb (11.4-16.0) gm/dL Hct (34.0-46.0) % RDW (11.5-15.5) % Plt Count (150-450) k/uL Neutrophils # (1.3-7.7) k/uL Sodium (137-145) mmol/L BUN (7-17) mg/dL Glucose (74-99) mg/dL POC Glucose (mg/dL) 127 H 149 H 134 H (75-99) mg/dL AST (14-36) U/L Total Protein (6.3-8.2) g/dL 01/01/18 01/01/18 01/01/18 Range/Units 06:25 06:25 07:24 WBC 14.4 H (3.8-10.6) k/uL RBC 2.19 L (3.80-5.40) m/uL Hgb 7.0 L (11.4-16.0) gm/dL Hct 21.0 L (34.0-46.0) % RDW 15.7 H (11.5-15.5) % Plt Count 128 L (150-450) k/uL Neutrophils # 12.7 H (1.3-7.7) k/uL Sodium 136 L (137-145) mmol/L BUN 33 H (7-17) mg/dL Glucose 108 H (74-99) mg/dL POC Glucose (mg/dL) 102 H (75-99) mg/dL AST 69 H (14-36) U/L Total Protein 5.8 L (6.3-8.2) g/dL 01/01/18 Range/Units 12:15 WBC (3.8-10.6) k/uL RBC (3.80-5.40) m/uL Hgb (11.4-16.0) gm/dL Hct (34.0-46.0) % RDW (11.5-15.5) % Plt Count (150-450) k/uL Neutrophils # (1.3-7.7) k/uL Sodium (137-145) mmol/L BUN (7-17) mg/dL Glucose (74-99) mg/dL POC Glucose (mg/dL) 114 H (75-99) mg/dL AST (14-36) U/L Total Protein (6.3-8.2) g/dL Assessment and Plan Plan: Assessment 1 triple-vessel coronary artery disease, symptomatic with exertional angina and shortness of breath, patient underwent three-vessel bypass surgery and currently she is postop day #4 2 post thoracotomy, with post extubation bronchospasm and wheezing typically of an underlying COPD exacerbation, managed by bronchodilators, steroids and noninvasive positive pressure ventilation with BiPAP at a pressure of 14/5 cm of water. Currently she is off BiPAP at 5 L per minute nasal cannula. Chest x- ray was reviewed and there is small right-sided pleural effusion. Sternum stable clean and intact. The output from the chest tube was noted in the chest tube will be ordered removed today. The patient will be also given a dose of Lasix. No signs of respiratory distress. She is still doing poorly on of incentive spirometer. 3 anemia with significant drop in hemoglobin the patient got transfused packed RBC and currently hemoglobin is stable up to 7. 4 COPD, severe at baseline FEV1 in the 70% range, preoperatively. 5 chronic back pain 6 hypothyroidism 7 hypertension 8 peripheral vascular disease Plan The patient the same bronchodilators. continue duoneb. continue perforomist. continue pulmicort. cut down the iv solu-medrol to 40 mg every 12 hours. The patient is doing well. She needs to work more aggressively on the incentive spirometer. Provide adequate pain control. Continue metoprolol. Continue aspirin. Continue Plavix. Blood sugar control with Levemir insulin and NovoLog 5 coverage. No cough or pain control. We'll continue to follow.
--- NOTE | 2018-01-01 14:22 | P.PN ---
Subjective Progress Note Date: 01/01/18 Principal diagnosis: Triple-vessel coronary artery disease. Preserved left ventricular function. Chronic degenerative arthritis, History of mild chronic obstructive pulmonary disease with preoperative FEV1 70% of predicted, severe peripheral vascular disease, hypertension, remote history of pulmonary embolism, hypothyroid, and previous tobacco dependence. History of fall from standing preoperatively. POD #4 triple coronary artery bypass grafting using the left internal mammary artery to the left anterior descending coronary artery, a reverse greater saphenous vein graft from the aorta to the first obtuse marginal coronary artery , a reverse greater saphenous vein graft from the aorta to the posterior descending coronary artery, endoscopic harvesting of the left greater saphenous vein, intraoperative transesophageal echocardiogram and epi-aortic scanning, intraoperative graft flow measurements using the [employer] system. Postoperative acute blood loss anemia, an unexpected outcome. The patient is currently lying in bed in no acute distress. She is currently on 4 L nasal cannula with oxygen saturations 96%. She remains hemodynamically stable. She alert and oriented 3 and following verbal commands appropriately. She is achieving 500 mL on her incentive spirometry with encouragement. She is complaining of lower back pain which she reports is chronic, denies any pain to her chest tube insertion sites and denies any complaints of shortness of breath at this time. Objective - Vital Signs Vital signs: Vital Signs Temp 97.6 F 01/01/18 08:00 Pulse 101 H 01/01/18 14:00 Resp 12 01/01/18 14:00 BP 166/87 01/01/18 14:00 Pulse Ox 94 L 01/01/18 14:00 Intake & Output 12/31/17 01/01/18 01/01/18 18:59 06:59 18:59 Intake Total 354 776 92 Output Total 4343 198 2429 Balance -1084 54 -1559 Intake: IV 354 276 92 Lactated Ringers 1,000 ml 300 240 80 @ 20 mls/hr IV .Q24H ON LICENSE OF [facility] Rx#:[id number] Pressure Bags 54 36 12 Oral 500 Output: Chest Tube Drainage 220 172 26 Left Pleural 130 112 16 Mediastinal 90 60 10 Drainage 60 45 Left Calf 60 45 Urine 4097 [id number] [id number] Other: Voiding Method Indwelling Catheter Indwelling Catheter Indwelling Catheter ABP, PAP, CO, CI - Last Documented Arterial Blood Pressure 156/117 Pulmonary Artery Pressure 33/17 Cardiac Output 4 Cardiac Index 2.6 - Constitutional General appearance: Present: cooperative, no acute distress, obese - Respiratory Details: Lung sounds essentially diminished throughout. Respirations are symmetrical and nonlabored. Oxygen saturation are 96% on 4 L nasal cannula. She is achieving 500 mL with encouragement on her incentive spirometry. Mediastinal and left pleural Damián chest tubes in place to low continuous wall suction -20 cm H2O. No air leak is present. mediastinal chest tubes are draining thin serosanguineous drainage 60 mL in the last 8 hours, 140 liters output in the last 24 hours. Left pleural chest tube drained 105 mL in the last 8 hours and 245 mL output in the last 24 hours. - Cardiovascular Details: Regular rhythm and rate. S1 and S2 present, negative for S3, gallop or murmur. Sternum is stable. Bedside telemetry showing normal sinus rhythm heart rate 73 with occasional PACs. Heart hugger is in place and she is demonstrating appropriate use. Atrial and ventricular epicardial pacemaker wires in place and grounded. Knee-high AMINTA hose and sequential compression devices in place to bilateral lower extremities. Right IJ Cordis in place and functioning with continuous CVP monitoring, current CVP pressure 10 mmHg. 1+ generalized edema. - Gastrointestinal Gastrointestinal Comment(s): Abdomen is soft, nontender and not nondistended. Hypoactive bowel sounds to all 4 abdominal quadrants. Tolerating minimal oral intake. Passing flatus. - Genitourinary Genitourinary Comment(s): Segovia catheter for accurate I&O. Draining clear yellow urine. 300 mL output in the last 8 hours. - Integumentary Integumentary Comment(s): Skin is warm and dry, no clubbing or cyanosis present. Scattered ecchymotic areas to her face, bilateral upper and lower extremities. History of recent trauma from a fall preoperatively. Area of skin excoriation to her left brandon with scant serosanguineous drainage. Dressing is covering which is dry and intact. Midline sternal incision clean and dry and approximated. No drainage or redness present. Dressing clean and dry. Left leg EVH site clean dry and approximated. LIZABETH drain in place to her left lower extremity with 45 mL output in the last 8 hours. - Neurologic Neurologic: Present: CNII-XII intact - Musculoskeletal Musculoskeletal: Present: gait normal, generalized weakness, strength equal bilaterally - Psychiatric Psychiatric: Present: A&O x's 3, appropriate affect, intact judgment & insight - Allied health notes Allied health notes reviewed: nursing - Labs CBC & Chem 7: 01/01/18 06:25 01/01/18 06:25 Labs: Abnormal Lab Results - Last 24 Hours (Table) 12/31/17 12/31/17 12/31/17 Range/Units 14:54 16:29 20:37 WBC (3.8-10.6) k/uL RBC (3.80-5.40) m/uL Hgb (11.4-16.0) gm/dL Hct (34.0-46.0) % RDW (11.5-15.5) % Plt Count (150-450) k/uL Neutrophils # (1.3-7.7) k/uL Sodium (137-145) mmol/L BUN (7-17) mg/dL Glucose (74-99) mg/dL POC Glucose (mg/dL) 127 H 149 H 134 H (75-99) mg/dL AST (14-36) U/L Total Protein (6.3-8.2) g/dL 01/01/18 01/01/18 01/01/18 Range/Units 06:25 06:25 07:24 WBC 14.4 H (3.8-10.6) k/uL RBC 2.19 L (3.80-5.40) m/uL Hgb 7.0 L (11.4-16.0) gm/dL Hct 21.0 L (34.0-46.0) % RDW 15.7 H (11.5-15.5) % Plt Count 128 L (150-450) k/uL Neutrophils # 12.7 H (1.3-7.7) k/uL Sodium 136 L (137-145) mmol/L BUN 33 H (7-17) mg/dL Glucose 108 H (74-99) mg/dL POC Glucose (mg/dL) 102 H (75-99) mg/dL AST 69 H (14-36) U/L Total Protein 5.8 L (6.3-8.2) g/dL 01/01/18 Range/Units 12:15 WBC (3.8-10.6) k/uL RBC (3.80-5.40) m/uL Hgb (11.4-16.0) gm/dL Hct (34.0-46.0) % RDW (11.5-15.5) % Plt Count (150-450) k/uL Neutrophils # (1.3-7.7) k/uL Sodium (137-145) mmol/L BUN (7-17) mg/dL Glucose (74-99) mg/dL POC Glucose (mg/dL) 114 H (75-99) mg/dL AST (14-36) U/L Total Protein (6.3-8.2) g/dL - Imaging and Cardiology Chest x-ray: report reviewed, image reviewed Assessment and Plan (1) History of fall Current Visit: Yes Status: Acute Code(s): Z91.81 - HISTORY OF FALLING SNOMED Code(s): 649389869 (2) CAD (coronary artery disease) Current Visit: Yes Status: Chronic Code(s): I25.10 - ATHSCL HEART DISEASE OF [place] CORONARY ARTERY W/O ANG PCTRS SNOMED Code(s): 99853791 (3) Hypertension Current Visit: Yes Status: Chronic Code(s): I10 - ESSENTIAL (PRIMARY) HYPERTENSION SNOMED Code(s): 87655529 (4) Peripheral vascular disease Current Visit: Yes Status: Chronic Code(s): I73.9 - PERIPHERAL VASCULAR DISEASE, UNSPECIFIED SNOMED Code(s): 320571755 (5) Facial contusion Current Visit: No Status: Acute Code(s): S00.83XA - CONTUSION OF OTHER PART OF HEAD, INITIAL ENCOUNTER SNOMED Code(s): 517319193 (6) History of pulmonary embolism Current Visit: No Status: Resolved Code(s): Z86.711 - PERSONAL HISTORY OF PULMONARY EMBOLISM SNOMED Code(s): 002666872 (7) Tobacco dependence in remission Current Visit: No Status: Resolved Code(s): F17.201 - NICOTINE DEPENDENCE, UNSPECIFIED, IN REMISSION SNOMED Code(s): 812008830 Plan: 1. Continue low-dose aspirin, heparin subcu, Plavix, statin and beta jaida. Increase metoprolol tartrate 50 mg by mouth twice a day 2. Wean O2 as tolerated, encourage incentive spirometry 10 times every hour while awake. 3. Bronchodilators, steroids management per Dr. Best's recommendations. 4. Increase activity as tolerated. Out of bed for all meals. PT/OT/cardiac rehab following. 5. Will monitor daily labs and chest x-rays. 6. Lasix 40 mg IV 1 now. 7. Pain control with current medication regimen. 8. GI prophylaxis with Protonix. DVT prophylaxis with subcu heparin, SCDs. 9. Discontinue right IJ Cordis, removal of mediastinal and left pleural chest tubes. 10. Discontinue Segovia catheter. 11. Continue Cozaar 25 mg by mouth daily. 12. More recommendations to follow based on her clinical course. Time with Patient: Greater than 30
--- NOTE | 2018-01-01 15:59 | P.PN ---
Subjective Progress Note Date: 01/01/18 Principal diagnosis: Triple vessel bypass Patient continued to be hemodynamically stable currently sitting in a cardiac chair no major events reported by nursing staff continued to have bloody drainage in her left lower extremity. Patient is tolerating diet Objective - Vital Signs Vital signs: Vital Signs Temp 97.6 F 01/01/18 08:00 Pulse 88 01/01/18 15:35 Resp 27 H 01/01/18 15:00 BP 119/103 01/01/18 15:00 Pulse Ox 98 01/01/18 15:00 Intake & Output 12/31/17 01/01/18 01/01/18 18:59 06:59 18:59 Intake Total 354 776 92 Output Total 6937 671 2557 Balance -1084 54 -1604 Intake: IV 354 276 92 Lactated Ringers 1,000 ml 300 240 80 @ 20 mls/hr IV .Q24H [facility] Rx#:[id number] Pressure Bags 54 36 12 Oral 500 Output: Chest Tube Drainage 220 172 26 Left Pleural 130 112 16 Mediastinal 90 60 10 Drainage 60 45 45 Left Calf 60 45 45 Urine 0971 [id number] [id number] Other: Voiding Method Indwelling Catheter Indwelling Catheter Indwelling Catheter ABP, PAP, CO, CI - Last Documented Arterial Blood Pressure 156/117 Pulmonary Artery Pressure 33/17 Cardiac Output 4 Cardiac Index 2.6 - Exam Lungs diminished bilaterally Heart normal S1 and S2 Abdomen soft no tenderness past fall sounds in all 4 quadrant Psych patient is alert and oriented following commands Skin no new rash Chest tubes in place Segovia catheter intact with clear urine in the bag - Labs CBC & Chem 7: 01/01/18 06:25 01/01/18 06:25 Labs: Abnormal Lab Results - Last 24 Hours (Table) 12/31/17 12/31/17 01/01/18 Range/Units 16:29 20:37 06:25 WBC 14.4 H (3.8-10.6) k/uL RBC 2.19 L (3.80-5.40) m/uL Hgb 7.0 L (11.4-16.0) gm/dL Hct 21.0 L (34.0-46.0) % RDW 15.7 H (11.5-15.5) % Plt Count 128 L (150-450) k/uL Neutrophils # 12.7 H (1.3-7.7) k/uL Sodium (137-145) mmol/L BUN (7-17) mg/dL Glucose (74-99) mg/dL POC Glucose (mg/dL) 149 H 134 H (75-99) mg/dL AST (14-36) U/L Total Protein (6.3-8.2) g/dL 01/01/18 01/01/18 01/01/18 Range/Units 06:25 07:24 12:15 WBC (3.8-10.6) k/uL RBC (3.80-5.40) m/uL Hgb (11.4-16.0) gm/dL Hct (34.0-46.0) % RDW (11.5-15.5) % Plt Count (150-450) k/uL Neutrophils # (1.3-7.7) k/uL Sodium 136 L (137-145) mmol/L BUN 33 H (7-17) mg/dL Glucose 108 H (74-99) mg/dL POC Glucose (mg/dL) 102 H 114 H (75-99) mg/dL AST 69 H (14-36) U/L Total Protein 5.8 L (6.3-8.2) g/dL Assessment and Plan Assessment: 1. status post three-vessel bypass 2. COPD with mild exacerbation 3. Hyperglycemia secondary to steroid use 4. Anemia secondary to blood loss 5. Hypertension 6. Hyperlipidemia 7. Debility and deconditioning I would like to adjust her diabetic regimen, monitor glucose closely, monitor vital signs repeat blood work in the morning. Physical in a Patient of therapy and recommendation to consult physical medicine and rehabilitation
[2018-01-01] MEDS: FERROUS SULFATE 325 MG TAB PO SCH (16:08)
[2018-01-01] MEDS: ASCORBIC ACID 500 MG TAB PO SCH (16:08)
[2018-01-01 17:27] LABS: Glucose,Whole Blood 88 mg/dL (75-99)
[2018-01-01 20:15] LABS: Glucose,Whole Blood 108 mg/dL (75-99)
[2018-01-01] MEDS: SENNOSIDES-DOCUSATE SODIUM 1 EACH TAB PO SCH (20:33)
[2018-01-01] MEDS: METOPROLOL TARTRATE 50 MG TAB PO SCH (20:33)
[2018-01-01] MEDS: methylPREDNISolone SOD SUCCI 40 MG/ML 1 ML VIAL IV SCH (20:33)
[2018-01-02] MEDS: HEPARIN SODIUM,PORCINE 5,000 UNIT/ML 1 ML VIAL SQ SCH ×3 (02:24→15:56)
[2018-01-02 07:06] LABS: Glucose,Whole Blood 93 mg/dL (75-99)
[2018-01-02 07:11] LABS: ALT 55 U/L (9-52); AST 91 U/L (14-36); Albumin 3.7 g/dL (3.5-5.0); Alkaline Phosphatase 60 U/L (38-126); Anion Gap 10 mmol/L; Blood Urea Nitrogen 29 mg/dL (7-17); Calcium 8.8 mg/dL (8.4-10.2); Carbon Dioxide 27 mmol/L (22-30); Chloride 100 mmol/L (98-107); Glucose 96 mg/dL (74-99); Sodium 137 mmol/L (137-145); Total Bilirubin 1.1 mg/dL (0.2-1.3); Total Protein 5.8 g/dL (6.3-8.2)
[2018-01-02] MEDS: INSULIN ASPART 100 UNIT/ML 1 ML 10 ML VIAL SQ SCH ×4 (07:12→21:25)
[2018-01-02 07:13] LABS: Anisocytosis Slight; HCT 22.4 % (34.0-46.0); HGB 7.3 gm/dL (11.4-16.0); Hypochromasia Slight; MCH 32.4 pg (25.0-35.0); MCHC 32.5 g/dL (31.0-37.0); MCV 99.7 fL (80.0-100.0); Macrocytosis Slight; Mean Platelet Volume 6.7; Platelet Count 135 k/uL (150-450); RBC 2.24 m/uL (3.80-5.40); RDW 16.9 % (11.5-15.5)
[2018-01-02] MEDS: BUDESONIDE 0.5 MG/2 ML NEBU INHALATION SCH ×2 (07:20→19:35)
[2018-01-02] MEDS: FORMOTEROL FUMARATE 20 MCG/2 ML NEBU INHALATION SCH ×2 (07:20→19:35)
[2018-01-02] MEDS: IPRATROPIUM-ALBUTEROL 3 ML NEB INHALATION SCH ×4 (07:20→19:35)
--- NOTE | 2018-01-02 07:25 | XR ---
EXAMINATION TYPE: XR chest 1V portable DATE OF EXAM: 01/02/2018 COMPARISON: Prior chest x-ray 01/01/2018 HISTORY: Status post coronary artery bypass graft TECHNIQUE: Single frontal view of the chest is obtained. FINDINGS: Right jugular central venous sheath has been removed, patient is post median sternotomy. H eart remains enlarged. Skin fold suspected left lower chest. Bilateral obscured hemidiaphragms noted. Prominent lung volume may be indicative of underlying COPD. No evident pneumothorax. There are overl antonina cardiac leads. Left basilar chest tube no longer seen. Median sternal drain likely has been charli maria t. Epicardial pacing leads may be present. IMPRESSION: Basilar effusions and associated atelectasis, correlate to exclude edema versus pneumoni a.
[2018-01-02] MEDS ORDERED: LOSARTAN 50 MG TAB PO SCH (09:00)
[2018-01-02 09:14] LABS: Lymphocytes # (M) 0.83 k/uL (1.0-4.8); Metamyelocytes # (M) 0.14 k/uL (0); Metamyelocytes % 1 %; Monocytes # (M) 1.11 k/uL (0-1.0); Myelocytes # (M) 0.28 k/uL (0); Myelocytes % 2 %; Neutrophils # (M) 11.68 k/uL (1.3-7.7); Neutrophils % (M) 84 %; Nucleated Red Blood Cells 3 /100 WBC (0-0); Total Cells Counted 200; WBC 13.9 k/uL (3.8-10.6)
[2018-01-02] MEDS: LEVOTHYROXINE 25 MCG TAB PO SCH (09:33)
[2018-01-02] MEDS: CLOPIDOGREL 75 MG TAB PO SCH (09:33)
[2018-01-02] MEDS: PANTOPRAZOLE 40 MG TABLET PO SCH (09:33)
[2018-01-02] MEDS: METOPROLOL TARTRATE 50 MG TAB PO SCH ×2 (09:33→21:33)
[2018-01-02] MEDS: ASPIRIN 81 MG PO SCH (09:34)
[2018-01-02] MEDS: buPROPion 75 MG TAB PO SCH (09:34)
[2018-01-02] MEDS: methylPREDNISolone SOD SUCCI 40 MG/ML 1 ML VIAL IV SCH ×2 (09:34→21:33)
[2018-01-02] MEDS: ATORVASTATIN 40 MG TAB PO SCH (09:34)
[2018-01-02] MEDS: INSULIN DETEMIR 100 UNIT/ML 10 ML VIAL SQ SCH (12:16)
[2018-01-02 12:23] LABS: Glucose,Whole Blood 84 mg/dL (75-99)
--- NOTE | 2018-01-02 13:10 | P.PN ---
Subjective Progress Note Date: 01/02/18 Principal diagnosis: Status post CABG for triple vessel coronary artery disease, postoperative day #5 This is a 77-year-old female patient, known history of COPD with a preop FEV1 of 70% of predicted, and addition to coronary artery disease, peripheral vascular disease and hypertension, who was experiencing symptoms of exertional dyspnea and angina. She underwent stress test and she was found to have reversible ischemia and based on that the patient underwent a cardiac catheterization and she was found to have extreme calcified right and left coronary arteries, severe triple-vessel disease, severe disease involving the proximal RCA, severe disease involving the ostial circumflex and severe disease involving the ostial left anterior descending coronary artery. Based on this, the patient was referred for bypass surgery and the patient underwent three- vessel bypass with LOPES to LAD. Preop echocardiogram showed a preserved LV function with an ejection fraction of 55-60%. The patient has mild concentric left ventricular hypertrophy. I'm seeing this patient immediately after she arrived to the intensive care unit. She is sedated, comfortable likely distress. She is on a mechanical ventilator. She is an assist-control mode of ventilation, at a rate of 12, tidal volume of 400 with an FiO2 of 100% and PEEP of 5. Chest x-ray showed adequate expansion of both lungs. The patient is to mediastinal and 1 pleural chest tube on the left. Output is minimal at this point. There is no evidence of any air leak. There is no evidence of pneumothorax. The the blood gas showed a pH of 7.31 with a pCO2 of 46 and FiO2 is more than 400. Based on these results, increased respiratory rate up to 18. And I also drop the FiO2 down to 50%. She is producing adequate amount of urine output. She arrived to the ICU from the operating room with 12 mics of levo fed and currently she is off pressors. Cardiac output is at 2.6 with an index of 4.4. Pulmonary artery pressures are nonelevated. On 12/29/2017, the patient is postop day #1. The patient was kept intubated and mechanically ventilated overnight as the patient was having issues with increased output from the chest tubes, anemia, low cardiac output and difficulties with her weaning parameters overnight, the patient was given a total of 2 units of packed RBC 4 hemoglobin of 5.2. Subsequent hemoglobin came up to 6.4 and following that was up down to 5.8. The patient was given an additional 2 units of packed RBC this morning. Doppler from the chest tubes have decline. Overall output has been 800 mL of the mediastinal chest tubes and at times cc from the pleural chest tube as the patient arrived from the operating room. The patient was also given fresh frozen plasma total of 2 units. The patient was kept sedated with Diprivan and she remained calm and comfortable. There were 2 attempts to wean this patient a mechanical ventilator overnight. Her weaning parameters of borderline. Subsequent blood gases showed respiratory acidosis and I did not feel comfortable extubating this patient. Based on this, the patient was kept intubated on mechanical ventilator throughout the night. This morning, following transfusion with 2 units of packed RBC, the patient seemed to hemodynamically stable and she was doing okay. As such she was taken off the sedation and she was given a spelled his breathing trial with a pressure support of 5 and a PEEP of 5. His subsequent blood gases showed a mild component of respiratory acidosis with pCO2 of 50 and pH of 7.30. At that point, the patient was awake and she was following commands. She did not show any signs of respiratory distress. I decide to extubate this patient to a nasal cannula. Postextubation, the patient was followed up very closely. She was noted to bronchospastic and wheezy. Based on that, she was given IV Solu-Medrol. Following that she was placed on a BiPAP at a pressure of 14/5 cm of water with an FiO2 of 50%. The most recent blood gases showed a pH of 7.34 with a pCO2 of 42 and pO2 of 65 and this was done and FiO2 of 40%. The patient was somewhat restless and was getting agitated in bed. Based on that, I put her on Precedex and currently it is at 0.4 g per KG per hour. The chest x-ray from earlier this morning showed small better pleural effusion. There was cardiomegaly. Conway-Court catheter was in place. Rest of the chest were all in place. There was some limited bibasilar consolidation. She is afebrile. She is hemodynamically stable and currently the cardiac index is above 2.. Most recent hemoglobin is at 7.2. She is afebrile. She is on no pressors at this point in time. Cardiac rhythm is sinus. On 12/30/2017 the patient is postop day #2. As noted, and as mentioned earlier , the patient was extubated yesterday and postextubation the patient became bronchospastic and wheezy and she had significant respiratory distress. At that point she was started on BiPAP for respiratory support at a pressure of 14/ 6 cm of water. FiO2 was kept at 50%. The patient had some difficulties initially to tolerate the BiPAP. She was restarted on Precedex and the dose was titrated to control her agitation. With these changes, she did extremely well and overnight she was kept on a BiPAP and in the center she was placed on a combination of bronchodilators steroids which optimize her COPD exacerbation. This morning, the patient was taken off the BiPAP and she was placed on 5 L of oxygen nasal cannula. The chest x-ray from today shows a small right-sided pleural effusion. Chest tubes are all in place and output is diminished compared to yesterday with a stable hemoglobin. Hemodynamically, the patient is on no pressors. Cardiac index is at 1.9. She is producing adequate urine output. Hemoglobin is also stable. Based on all this, I weaned her off the Precedex earlier this morning and subsequently discontinued the BiPAP and currently she sometimes of oxygen by nasal cannula. She is breathing easier. She is less short of breath compared to yesterday. Chest tubes are all in place. Sternum stable clean and intact. The patient has a skin laceration left lower extremity and local wound care is being done and the LIZABETH drain is also in place. She is moving all 4 extremities without any limitation. No nausea. No vomiting. No emesis. No cardiac arrhythmias. She has a hemoglobin of 7.4. White cell count is nonelevated. Blood work and electrodes are all within normal limits earlier this morning. Blood sugars of 118. On 12/31/2017, I'm seeing this patient for a follow-up. Our efforts have succeeded in weaning patient off the BiPAP. Note that yesterday she became short of breath and she had to be placed on BiPAP with low dose Precedex for discomfort and agitation and restlessness. This morning she was weaned off and she is currently on 5 L of oxygen by nasal cannula sitting up on a recliner. Extremities no chest tubes are in place. The left pleural chest tube in the right pleural chest were also in place. The patient has put out approximately 80 mL from the left-sided pleural chest tube and frontal 30 mL over the past 24 hours. He still chest tubes have drain 60 mL over the past 8 hours and 12 mL over the past 24 hours. We're considering removal at least on the chest tube. The patient is pulling approximately 500 mL on the incentive spirometer. The LIZABETH drains in place in the left lower extremity and output has been around 48 and she is over the past 8 hours. There is a skin laceration which is being taken care of by local wound care. Sternum stable clean and intact. Hemodynamically stable. A dose of Lasix 40 mg IV push was given today. The cardiac rhythm is sinus. The patient is less bronchus spastic and wheezy compared to yesterday. She remains on DuoNeb neb treatments around the clock, she is also on a combination with as a night and Perforomist nebulized treatments twice a day and IV Solu Medrol. Hemoglobin from today is 6.9 and we' re holding of any blood transfusions for now. Patient is currently on Levemir 12 units in addition to coverage. On 01/01/2018, I'm seeing this patient for a follow-up. She remains in the intensive care unit. She is currently on oxygen by nasal cannula. Breathing is easier. Less short of breath. Chest tubes will be removed today and output has been minimal for now and the patient's chest x-ray showing small better pleural effusion more so on the right and the patient was given a dose of Lasix. Sternum stable clean and intact. Cardiac rhythm is sinus. The patient is using incentive spirometer and she is pulling approximately 500 mL she is equivalent to yesterday. Note that the left-sided chest tube has drained approximately 105 over the past 8 hours and to 45 over the past 24 hours. As for the mediastinal chest tubes have drain 60 mL over the past 8 hours and 140s over the past 24 hours. The fluid balance is -1.3 L over the past 24 hours. The Conway-Court catheter has been removed. The patient is on bronchodilators. The patient is on systemic steroids. Hemoglobin is stable at 7.9. Normal renal function for now. No altered mentation. She is awake and following commands and answering questions appropriately. Chest x-ray was reviewed. Reevaluated today on 01/02/2018, patient remains on 5 L nasal cannula, O2 saturation is marginal, patient remains to do poorly with incentive spirometry, intermittent episodes of confusion at night was noted. Chest x-ray did show small bilateral pleural effusions, patient remains on diuretics. Labs were all reviewed, renal profile is normal. Hemoglobin is 7.3. Patient continues to have some dyspnea on exertion. Objective - Vital Signs Vital signs: Vital Signs Temp 98.6 F 01/02/18 08:00 Pulse 76 01/02/18 12:23 Resp 15 01/02/18 10:00 BP 157/76 01/02/18 10:00 Pulse Ox 95 01/02/18 10:00 Intake & Output 01/01/18 01/02/18 01/02/18 18:59 06:59 18:59 Intake Total 92 200 120 Output Total 1891 350 300 Balance -1799 -150 -180 Weight 70.9 kg Intake: IV 92 Lactated Ringers 1,000 ml 80 @ 20 mls/hr IV .Q24H [facility] Rx#:[id number] Pressure Bags 12 Oral 200 120 Output: Chest Tube Drainage 26 Left Pleural 16 Mediastinal 10 Drainage 90 Left Calf 90 Urine 1775 350 300 Other: Voiding Method Bedside Commode Bedside Commode # Voids 1 1 # Bowel Movements 1 ABP, PAP, CO, CI - Last Documented Arterial Blood Pressure 156/117 Pulmonary Artery Pressure 33/17 Cardiac Output 4 Cardiac Index 2.6 - Exam Physical Exam: Revealed a 77-year-old female, in no distress. Head: Atraumatic, normocephalic. HEENT:[Neck is supple.] [No neck masses.] [No thyromegaly.] [No JVD.] No icterus, moist mucous membranes. Chest: [Diminished breath sounds and dullness at the bases bilaterally, no rhonchi and no wheezes. No chest wall tenderness. Symmetrical chest expansion. ] Cardiac Exam: [Normal S1 and S2, no S3 gallop, no murmur.] Abdomen: [Soft, nontender, no megaly, no rebound, no guarding, normal bowel sounds.] Extremities: Both were wrapped with Mario bandage, were not evaluated.] Neurological Exam: Alert oriented 3, no gross focal neurologic deficits. Psychiatric: Normal mood, affect and mental status examination. Skin: No rashes. She has areas of bruising bilaterally. - Labs CBC & Chem 7: 01/02/18 06:21 01/02/18 06:21 Labs: Abnormal Lab Results - Last 24 Hours (Table) 01/01/18 01/02/18 01/02/18 Range/Units 20:11 06:21 06:21 WBC 13.9 H (3.8-10.6) k/uL RBC 2.24 L (3.80-5.40) m/uL Hgb 7.3 L (11.4-16.0) gm/dL Hct 22.4 L (34.0-46.0) % RDW 16.9 H (11.5-15.5) % Plt Count 135 L (150-450) k/uL Neutrophils # (Manual) 11.68 H (1.3-7.7) k/uL Lymphocytes # (Manual) 0.83 L (1.0-4.8) k/uL Monocytes # (Manual) 1.11 H (0-1.0) k/uL Metamyelocytes # (Man) 0.14 H (0) k/uL Myelocytes # (Manual) 0.28 H (0) k/uL Nucleated RBCs 3 H (0-0) /100 WBC BUN 29 H (7-17) mg/dL POC Glucose (mg/dL) 108 H (75-99) mg/dL AST 91 H (14-36) U/L ALT 55 H (9-52) U/L Total Protein 5.8 L (6.3-8.2) g/dL Assessment and Plan Assessment: Impression: Status post triple-vessel CABG postoperative day #5 Bilateral pleural effusions with postoperative changes, expected post CABG. And areas of atelectasis/expected post CABG. Acute on chronic hypoxic respiratory failure multifactorial secondary to COPD and bilateral pleural effusion. Multiple comorbidities including underlying COPD, chronic back pain, hypothyroidism, hypertension,. Recommendation: Continue bronchodilators, continue diuretics, continue Solu- Medrol, however the dose will be cut down. No need for thoracentesis at this point, I believe the patient will likely improve with diuretics only. We'll continue to follow. Time with Patient: Less than 30
[2018-01-02] MEDS: FERROUS SULFATE 325 MG TAB PO SCH (13:15)
[2018-01-02] MEDS: ASCORBIC ACID 500 MG TAB PO SCH (13:15)
[2018-01-02] MEDS: amLODIPine 5 MG TAB PO SCH (13:16)
[2018-01-02] MEDS ORDERED: FUROSEMIDE 10 MG/ML 2 ML VIAL IV STA (14:17)
--- NOTE | 2018-01-02 14:26 | P.PN ---
Subjective Progress Note Date: 01/02/18 Principal diagnosis: Triple-vessel coronary artery disease. Preserved left ventricular function. Chronic degenerative arthritis, History of mild chronic obstructive pulmonary disease with preoperative FEV1 70% of predicted, severe peripheral vascular disease, hypertension, remote history of pulmonary embolism, hypothyroid, and previous tobacco dependence. History of fall from standing preoperatively. POD #5 triple coronary artery bypass grafting using the left internal mammary artery to the left anterior descending coronary artery, a reverse greater saphenous vein graft from the aorta to the first obtuse marginal coronary artery , a reverse greater saphenous vein graft from the aorta to the posterior descending coronary artery, endoscopic harvesting of the left greater saphenous vein, intraoperative transesophageal echocardiogram and epi-aortic scanning, intraoperative graft flow measurements using the [employer] system. Postoperative acute blood loss anemia, an unexpected outcome. The patient is currently sitting up to bedside chair. She is in no acute distress. She is currently on 4 L nasal cannula with oxygen saturations 95%. She remains hemodynamically stable. She alert and oriented 3 and following verbal commands appropriately. She is achieving 500 mL on her incentive spirometry with encouragement. Her nurse Vangie reports that the patient did have some episodes of confusion throughout the night, currently she is alert and oriented 3. Objective - Vital Signs Vital signs: Vital Signs Temp 98.3 F 01/02/18 12:00 Pulse 79 01/02/18 13:00 Resp 14 01/02/18 13:00 BP 152/75 01/02/18 13:00 Pulse Ox 98 01/02/18 13:00 Intake & Output 01/01/18 01/02/18 01/02/18 18:59 06:59 18:59 Intake Total 92 200 180 Output Total 1891 350 300 Balance -1799 -150 -120 Weight 70.9 kg Intake: IV 92 Lactated Ringers 1,000 ml 80 @ 20 mls/hr IV .Q24H [facility] Rx#:[id number] Pressure Bags 12 Oral 200 180 Output: Chest Tube Drainage 26 Left Pleural 16 Mediastinal 10 Drainage 90 Left Calf 90 Urine 1775 350 300 Other: Voiding Method Bedside Commode Bedside Commode # Voids 1 1 # Bowel Movements 1 ABP, PAP, CO, CI - Last Documented Arterial Blood Pressure 156/117 Pulmonary Artery Pressure 33/17 Cardiac Output 4 Cardiac Index 2.6 - Constitutional General appearance: Present: cooperative, no acute distress, obese - Respiratory Details: Lung sounds are essentially diminished throughout. Respirations are symmetrical and nonlabored. Oxygen saturation saturations are 95% on 4 L nasal cannula. She is achieving 500 mL on her incentive spirometry. - Cardiovascular Details: Regular rhythm and rate. S1 and S2 present, negative for S3, gallop or murmur. Sternum is stable. Bedside telemetry showing normal sinus rhythm heart rate 75. +1 generalized peripheral edema. Heart hugger's in place and she is demonstrating appropriate use. Knee-high AMINTA hose to her right leg, Mario wraps to her left leg from toes to thigh and sequential compression devices in place to bilateral lower extremities. Atrial and ventricular epicardial pacemaker wires in place and grounded. - Gastrointestinal Gastrointestinal Comment(s): Abdomen is soft, nontender and nondistended. Active bowel sounds all 4 abdominal quadrants. Remains tolerating minimal intake. Passing flatus. - Genitourinary Genitourinary Comment(s): Voiding clear yellow urine. 350 mL output in the last 8 hours. - Integumentary Integumentary Comment(s): Skin is warm and dry. No clubbing or cyanosis present. Scattered ecchymotic areas to her bilateral upper and lower extremities and to her bilateral cheeks. Area of skin excoriation to her left brandon with scant serosanguineous drainage. Dressing remains dry and intact. Midline sternal incision clean, dry and approximated. No drainage or redness present. Left leg EVH sites clean , dry and approximated. LIZABETH drain remains in place to her left lower extremity with 45 mL of thin serosanguineous drainage in the last 8 hours. - Neurologic Neurologic: Present: CNII-XII intact - Musculoskeletal Musculoskeletal: Present: gait normal, generalized weakness, strength equal bilaterally - Psychiatric Psychiatric: Present: A&O x's 3, appropriate affect, intact judgment & insight - Allied health notes Allied health notes reviewed: nursing - Labs CBC & Chem 7: 01/02/18 06:21 01/02/18 06:21 Labs: Abnormal Lab Results - Last 24 Hours (Table) 01/01/18 01/02/18 01/02/18 Range/Units 20:11 06:21 06:21 WBC 13.9 H (3.8-10.6) k/uL RBC 2.24 L (3.80-5.40) m/uL Hgb 7.3 L (11.4-16.0) gm/dL Hct 22.4 L (34.0-46.0) % RDW 16.9 H (11.5-15.5) % Plt Count 135 L (150-450) k/uL Neutrophils # (Manual) 11.68 H (1.3-7.7) k/uL Lymphocytes # (Manual) 0.83 L (1.0-4.8) k/uL Monocytes # (Manual) 1.11 H (0-1.0) k/uL Metamyelocytes # (Man) 0.14 H (0) k/uL Myelocytes # (Manual) 0.28 H (0) k/uL Nucleated RBCs 3 H (0-0) /100 WBC BUN 29 H (7-17) mg/dL POC Glucose (mg/dL) 108 H (75-99) mg/dL AST 91 H (14-36) U/L ALT 55 H (9-52) U/L Total Protein 5.8 L (6.3-8.2) g/dL - Imaging and Cardiology Chest x-ray: report reviewed, image reviewed Assessment and Plan (1) History of fall Current Visit: Yes Status: Acute Code(s): Z91.81 - HISTORY OF FALLING SNOMED Code(s): 982323092 (2) CAD (coronary artery disease) Current Visit: Yes Status: Chronic Code(s): I25.10 - ATHSCL HEART DISEASE OF [place] CORONARY ARTERY W/O ANG PCTRS SNOMED Code(s): 88297290 (3) Hypertension Current Visit: Yes Status: Chronic Code(s): I10 - ESSENTIAL (PRIMARY) HYPERTENSION SNOMED Code(s): 19801574 (4) Peripheral vascular disease Current Visit: Yes Status: Chronic Code(s): I73.9 - PERIPHERAL VASCULAR DISEASE, UNSPECIFIED SNOMED Code(s): 362341382 (5) Facial contusion Current Visit: No Status: Acute Code(s): S00.83XA - CONTUSION OF OTHER PART OF HEAD, INITIAL ENCOUNTER SNOMED Code(s): 411907400 (6) History of pulmonary embolism Current Visit: No Status: Resolved Code(s): Z86.711 - PERSONAL HISTORY OF PULMONARY EMBOLISM SNOMED Code(s): 792470809 (7) Tobacco dependence in remission Current Visit: No Status: Resolved Code(s): F17.201 - NICOTINE DEPENDENCE, UNSPECIFIED, IN REMISSION SNOMED Code(s): 287376383 Plan: 1. Continue low-dose aspirin, heparin subcu, Plavix, statin and beta jaida. We will increase her beta jaida as tolerated. 2. Wean O2 as tolerated, encourage incentive spirometry 10 times every hour while awake. 3. Bronchodilators, steroids management per Dr. Child's recommendations. 4. Increase activity as tolerated. Out of bed for all meals. PT/OT/cardiac rehab following. 5. Will monitor daily labs and chest x-rays. 6. Lasix 20 mg IV 1 now. 7. Pain control with current medication regimen. 8. GI prophylaxis with Protonix. DVT prophylaxis with subcu heparin, SCDs. 9. Increase Cozaar to 50 mg by mouth daily. 10. We will transfer the patient to [address] [place] [address] cardiac stepdown unit today when bed available. 11. More recommendations to follow based on her clinical course. Time with Patient: Greater than 30
--- NOTE | 2018-01-02 14:54 | PN ---
PROGRESS NOTE This patient's medical records, lab tests, hemodynamics reviewed. Please refer to the patient's medical records for any more details. Patient is status post coronary artery bypass surgery. She is sitting comfortably in the bedside chair. No dysrhythmias are noted. Patient's blood pressure remains elevated and it is 157/76 mmHg, heart rate is 76 per minute. First and second heart sounds are heard. Lungs are clinically clear to auscultation and percussion. There is no evidence of any leg edema. Patient's lab tests are normal, we will add amlodipine 5 mg daily to control the blood pressure. MMODL / IJN: [id number] /
[2018-01-02 17:24] LABS: Glucose,Whole Blood 133 mg/dL (75-99)
[2018-01-02 18:38] LABS: Iron Saturation 32.79 (12.00-45.00)
[2018-01-02 21:24] LABS: Glucose,Whole Blood 65 mg/dL (75-99)
[2018-01-02] MEDS: MELATONIN 3 MG TABLET PO SCH (21:32)
[2018-01-02] MEDS: SENNOSIDES-DOCUSATE SODIUM 1 EACH TAB PO SCH (21:33)
[2018-01-02] MEDS: HYDROcodone/APAP 5-325MG 1 EACH TAB PO PRN (21:39)
[2018-01-02 21:50] LABS: Glucose,Whole Blood 112 mg/dL (75-99)
[2018-01-03 01:00] LABS: Glucose,Whole Blood 148 mg/dL (75-99)
[2018-01-03] MEDS: HEPARIN SODIUM,PORCINE 5,000 UNIT/ML 1 ML VIAL SQ SCH ×3 (01:39→18:00)
[2018-01-03 05:38] LABS: Anisocytosis Slight; Basophils % (A) 0 %; Eosinophils # (A) 0.1 k/uL (0-0.7); Eosinophils % (A) 0 %; HCT 23.3 % (34.0-46.0); HGB 7.7 gm/dL (11.4-16.0); Hypochromasia Slight; Lymphocytes # (A) 1.2 k/uL (1.0-4.8); Lymphocytes % (A) 8 %; MCH 32.6 pg (25.0-35.0); MCHC 33.2 g/dL (31.0-37.0); MCV 98.2 fL (80.0-100.0); Macrocytosis Slight; Mean Platelet Volume 7.1; Monocytes # (A) 1.2 k/uL (0-1.0); Monocytes % (A) 8 %; Neutrophils # (A) 12.2 k/uL (1.3-7.7); Neutrophils % (A) 82 %; Platelet Count 170 k/uL (150-450); RBC 2.38 m/uL (3.80-5.40); RDW 17.1 % (11.5-15.5); WBC 14.8 k/uL (3.8-10.6)
[2018-01-03 06:10] LABS: Anion Gap 9 mmol/L; Blood Urea Nitrogen 24 mg/dL (7-17); Calcium 8.7 mg/dL (8.4-10.2); Carbon Dioxide 27 mmol/L (22-30); Chloride 99 mmol/L (98-107); Glucose 114 mg/dL (74-99); Potassium 3.9 mmol/L (3.5-5.1); Sodium 135 mmol/L (137-145)
[2018-01-03] MEDS: LEVOTHYROXINE 25 MCG TAB PO SCH (06:32)
[2018-01-03] MEDS: INSULIN ASPART 100 UNIT/ML 1 ML 10 ML VIAL SQ SCH ×4 (07:41→21:54)
[2018-01-03 07:43] LABS: Glucose,Whole Blood 127 mg/dL (75-99)
[2018-01-03] MEDS: BUDESONIDE 0.5 MG/2 ML NEBU INHALATION SCH ×3 (07:46→20:08)
[2018-01-03] MEDS: FORMOTEROL FUMARATE 20 MCG/2 ML NEBU INHALATION SCH ×2 (07:46→19:53)
[2018-01-03] MEDS: IPRATROPIUM-ALBUTEROL 3 ML NEB INHALATION SCH ×4 (07:46→19:53)
--- NOTE | 2018-01-03 08:10 | XR ---
EXAMINATION TYPE: XR chest 2V DATE OF EXAM: 01/03/2018 COMPARISON: Prior chest x-ray 01/02/2018 HISTORY: Status post coronary artery bypass graft TECHNIQUE: Frontal and lateral views of the chest are obtained. FINDINGS: There are bibasilar effusions and associated atelectasis versus edema or pneumonia. Questi on patchy density in the left upper lobe and right upper lobe, there is overlying artifact The cardi ac silhouette size is stable and enlarged. Prominent lung volumes suggest underlying COPD. Epicardia l pacing leads are present, patient is post median sternotomy. Coronary artery calcifications are pre sent. The osseous structures are intact. There are overlying cardiac leads. IMPRESSION: Cardiomegaly and bibasilar effusions, correlate to exclude pneumonia versus edema and/or associated atelectasis.
[2018-01-03] MEDS ORDERED: FUROSEMIDE 10 MG/ML 2 ML VIAL IV STA (08:47)
[2018-01-03] MEDS ORDERED: INSULIN DETEMIR 100 UNIT/ML 10 ML VIAL SQ SCH (09:00)
[2018-01-03] MEDS: ATORVASTATIN 40 MG TAB PO SCH (09:07)
[2018-01-03] MEDS: PANTOPRAZOLE 40 MG TABLET PO SCH (09:07)
[2018-01-03] MEDS: ASPIRIN 81 MG PO SCH (09:07)
[2018-01-03] MEDS: METOPROLOL TARTRATE 50 MG TAB PO SCH ×2 (09:07→21:57)
[2018-01-03] MEDS: CLOPIDOGREL 75 MG TAB PO SCH (09:07)
[2018-01-03] MEDS: methylPREDNISolone SOD SUCCI 40 MG/ML 1 ML VIAL IV SCH ×2 (09:08→21:57)
[2018-01-03] MEDS: LOSARTAN 25 MG TAB PO SCH (09:09)
--- NOTE | 2018-01-03 10:18 | P.PN ---
Subjective Progress Note Date: 01/02/18 This is a 77-year-old female one of my patient with a previous medical history significant for COPD, coronary artery disease, peripheral vascular disease and hypertension, who was experiencing symptoms of exertional dyspnea and angina. She underwent stress test and she was found to have reversible ischemia and based on that the patient underwent a cardiac catheterization and she was found to have extreme calcified right and left coronary arteries, severe triple-vessel disease, severe disease involving the proximal RCA, severe disease involving the ostial circumflex and severe disease involving the ostial left anterior descending coronary artery. Based on this, the patient was referred for bypass surgery and the patient underwent three- vessel bypass with LOPES to LAD, SVG to OM and SVG to PDA, Preop echocardiogram showed a preserved LV function with an ejection fraction of 55-60%. The patient has mild concentric left ventricular hypertrophy, patient was admitted to intensive care unit she is currently on assist mode ventilation with FiO2 of 40% tidal volume of 400 and PEEP of 5, patient was slightly agitated earlier today in the morning and this is delayed her expiration this will be reevaluated in the next few hours hopefully she'll be extubated her on today. 12/30: Patient has been successfully extubated. She remains in the intensive care unit. Patient did have some anxiety issues and a sitter is at the bedside. She states that she is feeling "droggy" but is quite talkative. She denies having any headache. Positive cough. She denies passing any gas. No bowel movement. Her chest pain is currently controlled. She denies any shortness of breath. Chest tubes, Segovia, right-sided cordis remain in place. Patient has a LIZABETH drain to the left lower extremity. Blood sugars are running in the low 100s and we will plan to transition her over to Levemir and NovoLog scale and discontinue insulin drip. Hemoglobin is 7.4, platelet count 82. patient is status post total of 4 units packed RBCs and 2 fresh frozen plasma, 1 platelet. 01/02: Patient remains in the intensive care unit. Her blood sugars are running 84-108 and Levemir decreased to 8 units and held for today. She is currently on oxygen at 4 L nasal cannula pulse oxing 97%. Over the weekend, Segovia catheter and chest tubes were removed. She did have some confusion during the night with concern for owners. We will add in melatonin for sleep. Patient is scheduled for transfer to [facility]. Review Of Systems: Constitutional: No fever, no chills, no night sweats. No weight change. + weakness, +fatigue no lethargy. + daytime sleepiness. EENT: No headache. No blurred vision or double vision, no loss of vision. No loss of Hearing, no ringing in the ears, no dizziness. No nasal drainage or congestion. No epistaxis. No sore throat. Lungs: No shortness of breath, +cough, + sputum production. No wheezing. Cardiovascular: No chest pain (controlled), no lower extremity edema. No palpitations. No paroxysmal nocturnal dyspnea. No orthopnea. No lightheadedness or dizziness. No syncopal episodes. Abdominal: No abdominal pain. No nausea, vomiting. No diarrhea. No constipation. No bloody or tarry stools. No loss of appetite. Genitourinary: No dysuria, increased frequency, urgency. No urinary retention. Musculoskeletal: No myalgias. No muscle weakness, no gait dysfunction, no frequent falls. No back pain. No neck pain. Integumentary: No wounds, no lesions. No rash or pruritus. No unusual bruising. No change in hair or nails. Neurologic: No aphasia. No facial droop. No change in mentation. No head injury. No headache. No paralysis. No paresthesia. Psychiatric: No depression. No anxiety. No mood swings. Endocrine: No abnormal blood sugars. No weight change. No excessive sweating or thirst. Objective - Vital Signs Vital signs: Vital Signs Temp 98.6 F 01/02/18 08:00 Pulse 76 01/02/18 12:23 Resp 15 01/02/18 10:00 BP 157/76 01/02/18 10:00 Pulse Ox 95 01/02/18 10:00 Intake & Output 01/01/18 01/02/18 01/02/18 18:59 06:59 18:59 Intake Total 92 200 120 Output Total 1891 350 300 Balance -1799 -150 -180 Weight 70.9 kg Intake: IV 92 Lactated Ringers 1,000 ml 80 @ 20 mls/hr IV .Q24H [facility] Rx#:[id number] Pressure Bags 12 Oral 200 120 Output: Chest Tube Drainage 26 Left Pleural 16 Mediastinal 10 Drainage 90 Left Calf 90 Urine 1775 350 300 Other: Voiding Method Bedside Commode Bedside Commode # Voids 1 1 # Bowel Movements 1 ABP, PAP, CO, CI - Last Documented Arterial Blood Pressure 156/117 Pulmonary Artery Pressure 33/17 Cardiac Output 4 Cardiac Index 2.6 - Exam Constitutional General appearance: no acute distress - EENT ENT: Pupils equal round, conjunctiva slightly pale, mucous members of the mouth slightly dry. Trachea midline. Ears: bilateral: normal - Neck Neck: no lymphadenopathy Carotids: bilateral: upstroke delayed - Respiratory Respiratory: bilateral: diminished, rales, rhonchi, prolonged expiration, negative: dullness, wheezing, other (chest tubes removed.) - Cardiovascular Rhythm: regular Heart sounds: normal: S1, S2 Abnormal Heart Sounds: systolic murmur, rub, S3 Gallop - Gastrointestinal General gastrointestinal: normal bowel sounds, soft, no splenomegaly, no tenderness, no umbilical hernia, no ventral hernia - Integumentary Integumentary: normal, normal turgor - Psychiatric Psychiatric: A&O x's 3, appropriate affect, intact judgment & insight - Labs CBC & Chem 7: 01/03/18 04:35 01/03/18 04:35 Labs: Abnormal Lab Results - Last 24 Hours (Table) 01/01/18 01/02/18 01/02/18 Range/Units 20:11 06:21 06:21 WBC 13.9 H (3.8-10.6) k/uL RBC 2.24 L (3.80-5.40) m/uL Hgb 7.3 L (11.4-16.0) gm/dL Hct 22.4 L (34.0-46.0) % RDW 16.9 H (11.5-15.5) % Plt Count 135 L (150-450) k/uL Neutrophils # (Manual) 11.68 H (1.3-7.7) k/uL Lymphocytes # (Manual) 0.83 L (1.0-4.8) k/uL Monocytes # (Manual) 1.11 H (0-1.0) k/uL Metamyelocytes # (Man) 0.14 H (0) k/uL Myelocytes # (Manual) 0.28 H (0) k/uL Nucleated RBCs 3 H (0-0) /100 WBC BUN 29 H (7-17) mg/dL POC Glucose (mg/dL) 108 H (75-99) mg/dL AST 91 H (14-36) U/L ALT 55 H (9-52) U/L Total Protein 5.8 L (6.3-8.2) g/dL Assessment and Plan Plan: 1. Status post CABG 3 with LOPES to LAD, SVG to OM, SVG to PDA. Patient has been successfully extubated, continue aggressive pulmonary toileting with nebulized treatment. Continue DuoNeb treatments, Pulmicort, Perforomist. Continue aspirin 81 mg daily, Lipitor 40 mg daily, Plavix 75 mg daily, amiodarone. 2. CAD post CABG. continue as in #1. 3. Hypertension and hypertensive cardiovascular disease. Continue losartan 75 mg orally once every day, Lopressor 50 mg orally 2 times daily, amlodipine 5 mg daily. 4. Hyperlipidemia. Continue Lipitor 40 mg once every day. 5. Moderate bilateral vascular disease. Continue aspirin and Lipitor for secondary prevention. 6. Mild COPD. Continue aggressive pulmonary toileting with nebulized treatment. 7. 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 Continue with current pain management. 8. Hypothyroidism. Continue patient on Synthroid 25 g orally once every day. 9. Recurrent depression. Continue Wellbutrin 75 mg orally once every day. 10. Discharge plan: Subacute rehab at [facility] or [facility] Impression and plan of care have been directed as dictated by the signing physician. Yecenia Holcomb nurse practitioner acting as scribe for signing physician.
[2018-01-03] MEDS: buPROPion 75 MG TAB PO SCH (10:57)
[2018-01-03] MEDS: amLODIPine 5 MG TAB PO SCH (10:57)
--- NOTE | 2018-01-03 11:36 | P.PN ---
Subjective Progress Note Date: 01/03/18 Principal diagnosis: Status post CABG for triple vessel coronary artery disease, postoperative day #6 This is a 77-year-old female patient, known history of COPD with a preop FEV1 of 70% of predicted, and addition to coronary artery disease, peripheral vascular disease and hypertension, who was experiencing symptoms of exertional dyspnea and angina. She underwent stress test and she was found to have reversible ischemia and based on that the patient underwent a cardiac catheterization and she was found to have extreme calcified right and left coronary arteries, severe triple-vessel disease, severe disease involving the proximal RCA, severe disease involving the ostial circumflex and severe disease involving the ostial left anterior descending coronary artery. Based on this, the patient was referred for bypass surgery and the patient underwent three- vessel bypass with LOPES to LAD. Preop echocardiogram showed a preserved LV function with an ejection fraction of 55-60%. The patient has mild concentric left ventricular hypertrophy. I'm seeing this patient immediately after she arrived to the intensive care unit. She is sedated, comfortable likely distress. She is on a mechanical ventilator. She is an assist-control mode of ventilation, at a rate of 12, tidal volume of 400 with an FiO2 of 100% and PEEP of 5. Chest x-ray showed adequate expansion of both lungs. The patient is to mediastinal and 1 pleural chest tube on the left. Output is minimal at this point. There is no evidence of any air leak. There is no evidence of pneumothorax. The the blood gas showed a pH of 7.31 with a pCO2 of 46 and FiO2 is more than 400. Based on these results, increased respiratory rate up to 18. And I also drop the FiO2 down to 50%. She is producing adequate amount of urine output. She arrived to the ICU from the operating room with 12 mics of levo fed and currently she is off pressors. Cardiac output is at 2.6 with an index of 4.4. Pulmonary artery pressures are nonelevated. On 12/29/2017, the patient is postop day #1. The patient was kept intubated and mechanically ventilated overnight as the patient was having issues with increased output from the chest tubes, anemia, low cardiac output and difficulties with her weaning parameters overnight, the patient was given a total of 2 units of packed RBC 4 hemoglobin of 5.2. Subsequent hemoglobin came up to 6.4 and following that was up down to 5.8. The patient was given an additional 2 units of packed RBC this morning. Doppler from the chest tubes have decline. Overall output has been 800 mL of the mediastinal chest tubes and at times cc from the pleural chest tube as the patient arrived from the operating room. The patient was also given fresh frozen plasma total of 2 units. The patient was kept sedated with Diprivan and she remained calm and comfortable. There were 2 attempts to wean this patient a mechanical ventilator overnight. Her weaning parameters of borderline. Subsequent blood gases showed respiratory acidosis and I did not feel comfortable extubating this patient. Based on this, the patient was kept intubated on mechanical ventilator throughout the night. This morning, following transfusion with 2 units of packed RBC, the patient seemed to hemodynamically stable and she was doing okay. As such she was taken off the sedation and she was given a spelled his breathing trial with a pressure support of 5 and a PEEP of 5. His subsequent blood gases showed a mild component of respiratory acidosis with pCO2 of 50 and pH of 7.30. At that point, the patient was awake and she was following commands. She did not show any signs of respiratory distress. I decide to extubate this patient to a nasal cannula. Postextubation, the patient was followed up very closely. She was noted to bronchospastic and wheezy. Based on that, she was given IV Solu-Medrol. Following that she was placed on a BiPAP at a pressure of 14/5 cm of water with an FiO2 of 50%. The most recent blood gases showed a pH of 7.34 with a pCO2 of 42 and pO2 of 65 and this was done and FiO2 of 40%. The patient was somewhat restless and was getting agitated in bed. Based on that, I put her on Precedex and currently it is at 0.4 g per KG per hour. The chest x-ray from earlier this morning showed small better pleural effusion. There was cardiomegaly. [place] catheter was in place. Rest of the chest were all in place. There was some limited bibasilar consolidation. She is afebrile. She is hemodynamically stable and currently the cardiac index is above 2.. Most recent hemoglobin is at 7.2. She is afebrile. She is on no pressors at this point in time. Cardiac rhythm is sinus. On 12/30/2017 the patient is postop day #2. As noted, and as mentioned earlier , the patient was extubated yesterday and postextubation the patient became bronchospastic and wheezy and she had significant respiratory distress. At that point she was started on BiPAP for respiratory support at a pressure of 14/ 6 cm of water. FiO2 was kept at 50%. The patient had some difficulties initially to tolerate the BiPAP. She was restarted on Precedex and the dose was titrated to control her agitation. With these changes, she did extremely well and overnight she was kept on a BiPAP and in the center she was placed on a combination of bronchodilators steroids which optimize her COPD exacerbation. This morning, the patient was taken off the BiPAP and she was placed on 5 L of oxygen nasal cannula. The chest x-ray from today shows a small right-sided pleural effusion. Chest tubes are all in place and output is diminished compared to yesterday with a stable hemoglobin. Hemodynamically, the patient is on no pressors. Cardiac index is at 1.9. She is producing adequate urine output. Hemoglobin is also stable. Based on all this, I weaned her off the Precedex earlier this morning and subsequently discontinued the BiPAP and currently she sometimes of oxygen by nasal cannula. She is breathing easier. She is less short of breath compared to yesterday. Chest tubes are all in place. Sternum stable clean and intact. The patient has a skin laceration left lower extremity and local wound care is being done and the LIZABETH drain is also in place. She is moving all 4 extremities without any limitation. No nausea. No vomiting. No emesis. No cardiac arrhythmias. She has a hemoglobin of 7.4. White cell count is nonelevated. Blood work and electrodes are all within normal limits earlier this morning. Blood sugars of 118. On 12/31/2017, I'm seeing this patient for a follow-up. Our efforts have succeeded in weaning patient off the BiPAP. Note that yesterday she became short of breath and she had to be placed on BiPAP with low dose Precedex for discomfort and agitation and restlessness. This morning she was weaned off and she is currently on 5 L of oxygen by nasal cannula sitting up on a recliner. Extremities no chest tubes are in place. The left pleural chest tube in the right pleural chest were also in place. The patient has put out approximately 80 mL from the left-sided pleural chest tube and frontal 30 mL over the past 24 hours. He still chest tubes have drain 60 mL over the past 8 hours and 12 mL over the past 24 hours. We're considering removal at least on the chest tube. The patient is pulling approximately 500 mL on the incentive spirometer. The LIZABETH drains in place in the left lower extremity and output has been around 48 and she is over the past 8 hours. There is a skin laceration which is being taken care of by local wound care. Sternum stable clean and intact. Hemodynamically stable. A dose of Lasix 40 mg IV push was given today. The cardiac rhythm is sinus. The patient is less bronchus spastic and wheezy compared to yesterday. She remains on DuoNeb neb treatments around the clock, she is also on a combination with as a night and Perforomist nebulized treatments twice a day and IV Solu Medrol. Hemoglobin from today is 6.9 and we' re holding of any blood transfusions for now. Patient is currently on Levemir 12 units in addition to coverage. On 01/01/2018, I'm seeing this patient for a follow-up. She remains in the intensive care unit. She is currently on oxygen by nasal cannula. Breathing is easier. Less short of breath. Chest tubes will be removed today and output has been minimal for now and the patient's chest x-ray showing small better pleural effusion more so on the right and the patient was given a dose of Lasix. Sternum stable clean and intact. Cardiac rhythm is sinus. The patient is using incentive spirometer and she is pulling approximately 500 mL she is equivalent to yesterday. Note that the left-sided chest tube has drained approximately 105 over the past 8 hours and to 45 over the past 24 hours. As for the mediastinal chest tubes have drain 60 mL over the past 8 hours and 140s over the past 24 hours. The fluid balance is -1.3 L over the past 24 hours. The [place] catheter has been removed. The patient is on bronchodilators. The patient is on systemic steroids. Hemoglobin is stable at 7.9. Normal renal function for now. No altered mentation. She is awake and following commands and answering questions appropriately. Chest x-ray was reviewed. Reevaluated today on 01/02/2018, patient remains on 5 L nasal cannula, O2 saturation is marginal, patient remains to do poorly with incentive spirometry, intermittent episodes of confusion at night was noted. Chest x-ray did show small bilateral pleural effusions, patient remains on diuretics. Labs were all reviewed, renal profile is normal. Hemoglobin is 7.3. Patient continues to have some dyspnea on exertion. Reevaluated today on 01/03/2018, remains on 5 L nasal cannula, patient is doing well, asymptomatic, seems to be more awake and active this morning. She is doing a bit better with incentive spirometry. And definitely no episodes of confusion today. Chest x-ray continues to show small bilateral effusions, and the patient remains on diuretics. Hemoglobin today is 7.7. Electrodes are normal renal profile is relatively normal. Chest x-ray was reviewed. Objective - Vital Signs Vital signs: Vital Signs Temp 97.9 F 01/03/18 08:00 Pulse 78 01/03/18 08:06 Resp 16 01/03/18 08:00 BP 148/85 01/03/18 08:00 Pulse Ox 98 01/03/18 08:00 Intake & Output 01/02/18 01/03/18 01/03/18 18:59 06:59 18:59 Intake Total 420 780 540 Output Total 330 480 10 Balance 90 300 530 Intake: Oral 420 780 540 Output: Drainage 30 30 10 Left Calf 30 30 10 Urine 300 450 0 Other: Voiding Method Bedside Commode Bedside Commode # Voids 1 0 1 # Bowel Movements 1 ABP, PAP, CO, CI - Last Documented Arterial Blood Pressure 156/117 Pulmonary Artery Pressure 33/17 Cardiac Output 4 Cardiac Index 2.6 - Exam Physical Exam: Revealed a 77-year-old female, in no distress. Head: Atraumatic, normocephalic. HEENT:[Neck is supple.] [No neck masses.] [No thyromegaly.] [No JVD.] No icterus, moist mucous membranes. Chest: [Diminished breath sounds and dullness at the bases bilaterally, no rhonchi and no wheezes. No chest wall tenderness. Symmetrical chest expansion. ] Cardiac Exam: [Normal S1 and S2, no S3 gallop, no murmur.] Abdomen: [Soft, nontender, no megaly, no rebound, no guarding, normal bowel sounds.] Extremities: Both were wrapped with Mario bandage, left LIZABETH drain noted in the left lower extremity with sanguinous drainage noted Neurological Exam: Alert oriented 3, no gross focal neurologic deficits. Psychiatric: Normal mood, affect and mental status examination. Skin: No rashes. Left LIZABETH drain noted in the left lower extremity. Both lower extremities are wrapped with Mario wrapping. - Labs CBC & Chem 7: 01/03/18 04:35 01/03/18 04:35 Labs: Abnormal Lab Results - Last 24 Hours (Table) 01/02/18 01/02/18 01/02/18 Range/Units 06:21 16:56 21:22 WBC (3.8-10.6) k/uL RBC (3.80-5.40) m/uL Hgb (11.4-16.0) gm/dL Hct (34.0-46.0) % RDW (11.5-15.5) % Neutrophils # (1.3-7.7) k/uL Monocytes # (0-1.0) k/uL Sodium (137-145) mmol/L BUN (7-17) mg/dL Creatinine (0.52-1.04) mg/dL Glucose (74-99) mg/dL POC Glucose (mg/dL) 133 H 65 L (75-99) mg/dL Ferritin 443.8 H (10.0-291.0) ng/mL 01/02/18 01/03/18 01/03/18 Range/Units 21:49 00:58 04:35 WBC 14.8 H (3.8-10.6) k/uL RBC 2.38 L (3.80-5.40) m/uL Hgb 7.7 L (11.4-16.0) gm/dL Hct 23.3 L (34.0-46.0) % RDW 17.1 H (11.5-15.5) % Neutrophils # 12.2 H (1.3-7.7) k/uL Monocytes # 1.2 H (0-1.0) k/uL Sodium (137-145) mmol/L BUN (7-17) mg/dL Creatinine (0.52-1.04) mg/dL Glucose (74-99) mg/dL POC Glucose (mg/dL) 112 H 148 H (75-99) mg/dL Ferritin (10.0-291.0) ng/mL 01/03/18 01/03/18 Range/Units 04:35 07:40 WBC (3.8-10.6) k/uL RBC (3.80-5.40) m/uL Hgb (11.4-16.0) gm/dL Hct (34.0-46.0) % RDW (11.5-15.5) % Neutrophils # (1.3-7.7) k/uL Monocytes # (0-1.0) k/uL Sodium 135 L (137-145) mmol/L BUN 24 H (7-17) mg/dL Creatinine 0.45 L (0.52-1.04) mg/dL Glucose 114 H (74-99) mg/dL POC Glucose (mg/dL) 127 H (75-99) mg/dL Ferritin (10.0-291.0) ng/mL Assessment and Plan Assessment: Impression: Status post triple-vessel CABG postoperative day #6 Bilateral pleural effusions with postoperative changes, expected post CABG. And areas of atelectasis/expected post CABG. Acute on chronic hypoxic respiratory failure multifactorial secondary to COPD and bilateral pleural effusion. Multiple comorbidities including underlying COPD, chronic back pain, hypothyroidism, hypertension,. Recommendation: Continue bronchodilators, continue diuretics, continue Solu- Medrol, at a lower dose, continue incentive spirometry, continue ambulation, continue GI prophylaxis, probably transferred out of the ICU today. Time with Patient: Less than 30
[2018-01-03 12:01] LABS: Glucose,Whole Blood 130 mg/dL (75-99)
[2018-01-03] MEDS: FERROUS SULFATE 325 MG TAB PO SCH (12:32)
[2018-01-03] MEDS: ASCORBIC ACID 500 MG TAB PO SCH (12:32)
--- NOTE | 2018-01-03 13:34 | PN ---
PROGRESS NOTE This patient's medical records reviewed. The patient is status post coronary artery bypass surgery. Patient remains hemodynamically stable. No dysrhythmias are noted. Denies any chest pain. Heart rate is 70 per minute. Blood pressure is 148/85 mmHg. First and second heart sounds are normal. Lungs are clinically clear to auscultation and percussion. [facility]. MMODL / IJN: [id number] /
--- NOTE | 2018-01-03 15:35 | P.PN ---
Subjective Progress Note Date: 01/03/18 This is a 77-year-old female one of my patient with a previous medical history significant for COPD, coronary artery disease, peripheral vascular disease and hypertension, who was experiencing symptoms of exertional dyspnea and angina. She underwent stress test and she was found to have reversible ischemia and based on that the patient underwent a cardiac catheterization and she was found to have extreme calcified right and left coronary arteries, severe triple-vessel disease, severe disease involving the proximal RCA, severe disease involving the ostial circumflex and severe disease involving the ostial left anterior descending coronary artery. Based on this, the patient was referred for bypass surgery and the patient underwent three- vessel bypass with LOPES to LAD, SVG to OM and SVG to PDA, Preop echocardiogram showed a preserved LV function with an ejection fraction of 55-60%. The patient has mild concentric left ventricular hypertrophy, patient was admitted to intensive care unit she is currently on assist mode ventilation with FiO2 of 40% tidal volume of 400 and PEEP of 5, patient was slightly agitated earlier today in the morning and this is delayed her expiration this will be reevaluated in the next few hours hopefully she'll be extubated her on today. 12/30: Patient has been successfully extubated. She remains in the intensive care unit. Patient did have some anxiety issues and a sitter is at the bedside. She states that she is feeling "droggy" but is quite talkative. She denies having any headache. Positive cough. She denies passing any gas. No bowel movement. Her chest pain is currently controlled. She denies any shortness of breath. Chest tubes, Segovia, right-sided cordis remain in place. Patient has a LIZABETH drain to the left lower extremity. Blood sugars are running in the low 100s and we will plan to transition her over to Levemir and NovoLog scale and discontinue insulin drip. Hemoglobin is 7.4, platelet count 82. patient is status post total of 4 units packed RBCs and 2 fresh frozen plasma, 1 platelet. 01/02: Patient remains in the intensive care unit. Her blood sugars are running 84-108 and Levemir decreased to 8 units and held for today. She is currently on oxygen at 4 L nasal cannula pulse oxing 97%. Over the weekend, Segovia catheter and chest tubes were removed. She did have some confusion during the night with concern for owners. We will add in melatonin for sleep. Patient is scheduled for transfer to [facility]. 01/03: Patient's blood sugars were running low and we will discontinue the long- acting Levemir and continue only NovoLog scale. Patient is only reaching 500 on incentive spirometry. She is eating okay and has had formed stools. She denies having any chest pain. She does complain of feeling tired and fatigues easily. She apparently was a little agitated during the night and got herself up into a chair alone but no major problems. Patient is now a selective care overflow. Review Of Systems: Constitutional: No fever, no chills, no night sweats. No weight change. + weakness, +fatigue no lethargy. + daytime sleepiness. EENT: No headache. No blurred vision or double vision, no loss of vision. No loss of Hearing, no ringing in the ears, no dizziness. No nasal drainage or congestion. No epistaxis. No sore throat. Lungs: No shortness of breath, +cough, + sputum production. No wheezing. Cardiovascular: No chest pain (controlled), no lower extremity edema. No palpitations. No paroxysmal nocturnal dyspnea. No orthopnea. No lightheadedness or dizziness. No syncopal episodes. Abdominal: No abdominal pain. No nausea, vomiting. No diarrhea. No constipation. No bloody or tarry stools. No loss of appetite. Genitourinary: No dysuria, increased frequency, urgency. No urinary retention. Musculoskeletal: No myalgias. + muscle weakness, no gait dysfunction, no frequent falls. No back pain. No neck pain. Integumentary: No wounds, no lesions. No rash or pruritus. No unusual bruising. No change in hair or nails. Neurologic: No aphasia. No facial droop. No change in mentation. No head injury. No headache. No paralysis. No paresthesia. Psychiatric: No depression. No anxiety. No mood swings. Endocrine: No abnormal blood sugars. No weight change. No excessive sweating or thirst. Objective - Vital Signs Vital signs: Vital Signs Temp 97.9 F 01/03/18 08:00 Pulse 78 01/03/18 08:06 Resp 16 01/03/18 08:00 BP 148/85 01/03/18 08:00 Pulse Ox 98 01/03/18 08:00 Intake & Output 01/02/18 01/03/18 01/03/18 18:59 06:59 18:59 Intake Total 420 780 60 Output Total 330 480 0 Balance 90 300 60 Intake: Oral 420 780 60 Output: Drainage 30 30 Left Calf 30 30 Urine 300 450 0 Other: Voiding Method Bedside Commode Bedside Commode # Voids 1 0 0 # Bowel Movements 1 ABP, PAP, CO, CI - Last Documented Arterial Blood Pressure 156/117 Pulmonary Artery Pressure 33/17 Cardiac Output 4 Cardiac Index 2.6 - Exam Constitutional General appearance: no acute distress - EENT ENT: Pupils equal round, conjunctiva slightly pale, mucous members of the mouth slightly dry. Trachea midline. Ears: bilateral: normal - Neck Neck: no lymphadenopathy Carotids: bilateral: upstroke delayed - Respiratory Respiratory: bilateral: diminished, rales, rhonchi, prolonged expiration, negative: dullness, wheezing - Cardiovascular Rhythm: regular Heart sounds: normal: S1, S2 Abnormal Heart Sounds: systolic murmur, rub, S3 Gallop - Gastrointestinal General gastrointestinal: normal bowel sounds, soft, no splenomegaly, no tenderness, no umbilical hernia, no ventral hernia - Integumentary Integumentary: normal, normal turgor - Psychiatric Psychiatric: A&O x's 3, appropriate affect, intact judgment & insight - Labs CBC & Chem 7: 01/03/18 04:35 01/03/18 04:35 Labs: Abnormal Lab Results - Last 24 Hours (Table) 01/02/18 01/02/18 01/02/18 Range/Units 06:21 16:56 21:22 WBC (3.8-10.6) k/uL RBC (3.80-5.40) m/uL Hgb (11.4-16.0) gm/dL Hct (34.0-46.0) % RDW (11.5-15.5) % Neutrophils # (1.3-7.7) k/uL Monocytes # (0-1.0) k/uL Sodium (137-145) mmol/L BUN (7-17) mg/dL Creatinine (0.52-1.04) mg/dL Glucose (74-99) mg/dL POC Glucose (mg/dL) 133 H 65 L (75-99) mg/dL Ferritin 443.8 H (10.0-291.0) ng/mL 01/02/18 01/03/18 01/03/18 Range/Units 21:49 00:58 04:35 WBC 14.8 H (3.8-10.6) k/uL RBC 2.38 L (3.80-5.40) m/uL Hgb 7.7 L (11.4-16.0) gm/dL Hct 23.3 L (34.0-46.0) % RDW 17.1 H (11.5-15.5) % Neutrophils # 12.2 H (1.3-7.7) k/uL Monocytes # 1.2 H (0-1.0) k/uL Sodium (137-145) mmol/L BUN (7-17) mg/dL Creatinine (0.52-1.04) mg/dL Glucose (74-99) mg/dL POC Glucose (mg/dL) 112 H 148 H (75-99) mg/dL Ferritin (10.0-291.0) ng/mL 01/03/18 01/03/18 Range/Units 04:35 07:40 WBC (3.8-10.6) k/uL RBC (3.80-5.40) m/uL Hgb (11.4-16.0) gm/dL Hct (34.0-46.0) % RDW (11.5-15.5) % Neutrophils # (1.3-7.7) k/uL Monocytes # (0-1.0) k/uL Sodium 135 L (137-145) mmol/L BUN 24 H (7-17) mg/dL Creatinine 0.45 L (0.52-1.04) mg/dL Glucose 114 H (74-99) mg/dL POC Glucose (mg/dL) 127 H (75-99) mg/dL Ferritin (10.0-291.0) ng/mL Assessment and Plan Plan: 1. Status post CABG 3 with LOPES to LAD, SVG to OM, SVG to PDA. Patient has been successfully extubated, continue aggressive pulmonary toileting with nebulized treatment. Continue DuoNeb treatments, Pulmicort, Perforomist. Continue aspirin 81 mg daily, Lipitor 40 mg daily, Plavix 75 mg daily, amiodarone. Long-acting insulin discontinued. NovoLog scale only. 2. CAD post CABG. continue as in #1. 3. Hypertension and hypertensive cardiovascular disease. Continue losartan 75 mg orally once every day, Lopressor 50 mg orally 2 times daily, amlodipine 5 mg daily. 4. Hyperlipidemia. Continue Lipitor 40 mg once every day. 5. Moderate bilateral vascular disease. Continue aspirin and Lipitor for secondary prevention. 6. Mild COPD. Continue aggressive pulmonary toileting with nebulized treatment. 7. 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 Continue with current pain management. 8. Hypothyroidism. Continue patient on Synthroid 25 g orally once every day. 9. Recurrent depression. Continue Wellbutrin 75 mg orally once every day. 10. Discharge plan: Subacute rehab at [facility] or [facility] in the next 24-48 hours. Impression and plan of care have been directed as dictated by the signing physician. Yecenia Holcomb nurse practitioner acting as scribe for signing physician.
--- NOTE | 2018-01-03 16:35 | P.CONS ---
History of Present Illness - Chief Complaint Cardiac debility - History of Present Illness I had the opportunity to see patient for inpatient rehab consultation with regard to cardiac debility. She was admitted to [facility] December 28 acute [place]. Underwent emergent CABG 3 or 4 vessel print his patient thinks for but documentation indicates 3) these. Seen in ICU by Drs. Weeks her entertaining. Chest x-rays followed for cardiomegaly and effusions. PT reports two-person moderate assistance for functional debility. OT reports minimal assistance for upper dressing and total assistance for lower dressing and toileting and maximal assistance for bathing. Maximal assistance to person for toilet transfers. Nursing reports 1-2 person for transfers this p.m. Previous functional history as elicited patient: 77-year-old right-handed white female who is lives and 2 floor home with . Both are retired. Patient independent with cooking, laundry, driving, standing shower and gait without device. Dr. Stanley is regular doctor. Denies tobacco or alcohol. Family history Sr. with cardiac disease. Review of Systems Review of systems: ENT: Denies sneezes or discharge. Eyes: Denies discharge or photophobia. Cardiac: Denies chest pain or palpitation. Anterior chest discomfort. Pulmonary: Denies cough or shortness of breath. Breast: Denies discharge or lumps. Gastrointestinal: Denies nausea, emesis, constipation, diarrhea. Genitourinary: Denies discharge or frequency. Musculoskeletal: Denies muscle or bone aches. Neurologic: Generalized weakness. Endocrine: Denies shakes or sweats. Oncology: Denies cancers. Dermatologic: Denies rash, itching, pruritus. ALLERGY/immunology: Denies sneezes, rashes. Past Medical History Past Medical History: COPD, Hypertension, Musculoskeletal Disorder, Pulmonary Embolus (PE), Thyroid Disorder Additional Past Medical History / Comment(s): Multivessel coronary artery disease with triple-vessel involvement, COPD, chronic back pain, chronic degenerative arthritis with hip pain, remote history of pulmonary embolism, hypothyroidism. History of Any Multi-Drug Resistant Organisms: None Reported Past Surgical History: Appendectomy, Section, Heart Catheterization, Hysterectomy Additional Past Surgical History / Comment(s): Section X2, bilateral cataract removal with lens implants. Past Anesthesia/Blood Transfusion Reactions: No Reported Reaction Smoking Status: Former smoker Additional Past Alcohol Use History / Comment(s): Patient was a smoker of 1 ppd for many years and quit a few years ago. - Past Family History Brother(s) Family Medical History: Cancer Additional Family Medical History / Comment(s): Patient does not have any brothers. Daughter(s) Additional Family Medical History / Comment(s): Patient has 3 daughters and 2 have from aneursym but patient does not know site. Son(s) Additional Family Medical History / Comment(s): Patient has 3 sons and one has from lung cancer. Father Additional Family Medical History / Comment(s): Father at age 79 and patient does not know cause or medical history. Mother Additional Family Medical History / Comment(s): Mother dies at age 84 from old age. Sister(s) Additional Family Medical History / Comment(s): Patient has one sister wit CAD status post 4 stents. Medications and Allergies Home Medications Medication Instructions Recorded Confirmed Type Albuterol Sulfate [Proair Hfa] 1 - 2 puff INHALATION RT-QID PRN 12/02/17 History Cyclobenzaprine [Flexeril] 10 mg PO DAILY PRN 12/02/17 12/28/17 History Levothyroxine Sodium 25 mcg PO DAILY 12/02/17 12/28/17 History Losartan [Cozaar] 50 mg PO QAM 12/02/17 12/28/17 History Turmeric Root Extract [Turmeric] 500 mg PO DAILY 12/02/17 12/28/17 History buPROPion [Wellbutrin] 75 mg PO DAILY 12/02/17 12/28/17 History Aspirin 81 mg PO DAILY 12/22/17 12/28/17 History Atorvastatin [Lipitor] 80 mg PO DAILY 12/22/17 12/28/17 History Carvedilol [Coreg] 3.125 mg PO BID 12/22/17 12/28/17 History Ipratropium Nebulized [Atrovent 0.5 mg INHALATION RT-BID 12/22/17 12/28/17 History Nebulized] Ipratropium/Albuterol Sulfate 2 puff INHALATION RT-BID 12/22/17 12/28/17 History [Combivent Respimat Inhaler] Mupirocin 2% Oint [Bactroban 2% 1 applic TOPICAL BID 12/27/17 12/28/17 History Oint] Allergies Allergy/AdvReac Type Severity Reaction Status Date / Time No Known Allergies Allergy Verified 12/28/17 17:04 Physical Exam Vitals: Vital Signs Temp Pulse Resp BP Pulse Ox 01/03/18 16:24 94 L 01/03/18 16:20 76 16 01/03/18 16:00 98.0 F 78 16 137/75 94 L 01/03/18 12:20 68 01/03/18 12:05 78 01/03/18 12:00 98.2 F 87 14 152/79 95 01/03/18 08:06 78 01/03/18 08:00 97.9 F 84 16 148/85 98 01/03/18 07:56 74 01/03/18 07:47 78 01/03/18 05:00 81 16 145/77 96 01/03/18 04:00 97.5 F L 79 16 140/68 98 01/03/18 03:00 54 L 20 144/66 100 01/03/18 02:00 71 11 L 157/84 100 01/03/18 01:00 76 18 96 01/03/18 00:00 97.3 F L 73 11 L 161/89 100 01/02/18 23:17 89 12 147/70 100 01/02/18 23:00 87 11 L 147/70 97 01/02/18 22:00 96 18 135/77 94 L 01/02/18 21:00 92 11 L 138/126 92 L 01/02/18 20:00 97.6 F 87 22 163/84 99 01/02/18 19:50 84 20 01/02/18 19:35 86 25 H 01/02/18 18:00 85 16 150/83 95 01/02/18 17:00 87 15 165/78 90 L Intake and Output 01/03/18 01/03/18 01/03/18 06:59 14:59 22:59 Intake Total 660 Output Total 0 10 350 Balance 0 650 -350 Intake: Oral 660 Output: Drainage 10 Left Calf 10 Urine 0 0 350 Other: Voiding Method Bedside Commode # Voids 0 0 1 ABP, PAP, CO, CI - Last 8 Hours Cardiac Output 4 Cardiac Output 4 Skin: Good color, texture, turgor. General: Medium build and comfortable appearance. Head: Normocephalic, atraumatic. Eyes: Symmetric. Pupils equal round. Ears: Symmetric. Hearing within normal limits. Mouth: Clear. Neck: Supple. Carotid without bruit. Cardiac: Regular rate and rhythm. Midline sternotomy clean and dressed. Wearing harness. Lungs: Clear anteriorly and posteriorly. Abdomen: Soft active nontender. Extremities: Normal tone. Mario wrapping both legs. Neurological: Mental status: Alert, cooperative, pleasant. Cranial nerves: Symmetric facial tone and trapezius. Motor: Active movement all 4 limbs but poor in legs. Sensation: Intact throughout. DTRs: Symmetric and equal throughout. Mobility: Requires assistance of nursing for transfer from bed to Shilpa chair. Results CBC & Chem 7: 01/03/18 04:35 01/03/18 04:35 Labs: Abnormal Lab Results - Last 24 Hours (Table) 01/02/18 01/02/18 01/02/18 Range/Units 06:21 16:56 21:22 WBC (3.8-10.6) k/uL RBC (3.80-5.40) m/uL Hgb (11.4-16.0) gm/dL Hct (34.0-46.0) % RDW (11.5-15.5) % Neutrophils # (1.3-7.7) k/uL Monocytes # (0-1.0) k/uL Sodium (137-145) mmol/L BUN (7-17) mg/dL Creatinine (0.52-1.04) mg/dL Glucose (74-99) mg/dL POC Glucose (mg/dL) 133 H 65 L (75-99) mg/dL Ferritin 443.8 H (10.0-291.0) ng/mL 01/02/18 01/03/18 01/03/18 Range/Units 21:49 00:58 04:35 WBC 14.8 H (3.8-10.6) k/uL RBC 2.38 L (3.80-5.40) m/uL Hgb 7.7 L (11.4-16.0) gm/dL Hct 23.3 L (34.0-46.0) % RDW 17.1 H (11.5-15.5) % Neutrophils # 12.2 H (1.3-7.7) k/uL Monocytes # 1.2 H (0-1.0) k/uL Sodium (137-145) mmol/L BUN (7-17) mg/dL Creatinine (0.52-1.04) mg/dL Glucose (74-99) mg/dL POC Glucose (mg/dL) 112 H 148 H (75-99) mg/dL Ferritin (10.0-291.0) ng/mL 01/03/18 01/03/18 01/03/18 Range/Units 04:35 07:40 11:47 WBC (3.8-10.6) k/uL RBC (3.80-5.40) m/uL Hgb (11.4-16.0) gm/dL Hct (34.0-46.0) % RDW (11.5-15.5) % Neutrophils # (1.3-7.7) k/uL Monocytes # (0-1.0) k/uL Sodium 135 L (137-145) mmol/L BUN 24 H (7-17) mg/dL Creatinine 0.45 L (0.52-1.04) mg/dL Glucose 114 H (74-99) mg/dL POC Glucose (mg/dL) 127 H 130 H (75-99) mg/dL Ferritin (10.0-291.0) ng/mL Assessment and Plan (1) S/P CABG (coronary artery bypass graft) Current Visit: Yes Status: Acute Code(s): Z95.1 - PRESENCE OF AORTOCORONARY BYPASS GRAFT SNOMED Code(s): 459597871 (2) CAD (coronary artery disease) Current Visit: Yes Status: Chronic Code(s): I25.10 - ATHSCL HEART DISEASE OF [place] CORONARY ARTERY W/O ANG PCTRS SNOMED Code(s): 60984931 Plan: Impression: 1. Cardiac debility. 2. Status post coronary bypass. 3. Hypertension. 4. COPD. 5. History of PE. Comments and plan: At this time PT and OT are ongoing. Patient currently two- person assist. Follow closely with yourself for possible need and benefit inpatient rehab. Patient seems agreeable, if necessary.
[2018-01-03 17:41] LABS: Glucose,Whole Blood 142 mg/dL (75-99)
--- NOTE | 2018-01-03 17:57 | P.PN ---
Subjective Progress Note Date: 01/03/18 Principal diagnosis: Triple-vessel coronary artery disease. Preserved left ventricular function. Chronic degenerative arthritis, History of mild chronic obstructive pulmonary disease with preoperative FEV1 70% of predicted, severe peripheral vascular disease, hypertension, remote history of pulmonary embolism, hypothyroid, and previous tobacco dependence. History of fall from standing preoperatively. POD #6 triple coronary artery bypass grafting using the left internal mammary artery to the left anterior descending coronary artery, a reverse greater saphenous vein graft from the aorta to the first obtuse marginal coronary artery , a reverse greater saphenous vein graft from the aorta to the posterior descending coronary artery, endoscopic harvesting of the left greater saphenous vein, intraoperative transesophageal echocardiogram and epi-aortic scanning, intraoperative graft flow measurements using the [employer]sm[employer] system. Postoperative acute blood loss anemia, an unexpected outcome. The patient is currently sitting up to bedside chair. She is in no acute distress. She is currently on 4 L nasal cannula with oxygen saturations 96%. She remains hemodynamically stable. She alert and oriented 3 and following verbal commands appropriately. She is achieving 500 mL on her incentive spirometry with encouragement. Patient's nurse reports that she has ambulated in the hallway in the ICU twice today with minimal assistance. Dr. Dorantes has evaluated the patient and the patient is a possible inpatient rehab candidate. Objective - Vital Signs Vital signs: Vital Signs Temp 98.0 F 01/03/18 16:00 Pulse 72 01/03/18 16:36 Resp 16 01/03/18 16:36 BP 137/75 01/03/18 16:00 Pulse Ox 94 L 01/03/18 16:24 Intake & Output 01/02/18 01/03/18 01/03/18 18:59 06:59 18:59 Intake Total 420 780 660 Output Total 330 480 360 Balance 90 300 300 Intake: Oral 420 780 660 Output: Drainage 30 30 10 Left Calf 30 30 10 Urine 300 450 350 Other: Voiding Method Bedside Commode Bedside Commode # Voids 1 0 0 # Bowel Movements 1 ABP, PAP, CO, CI - Last Documented Arterial Blood Pressure 156/117 Pulmonary Artery Pressure 33/17 Cardiac Output 4 Cardiac Index 2.6 - Constitutional General appearance: Present: cooperative, no acute distress, obese - Respiratory Details: Expiratory wheezes throughout, diminished bilateral bases. Respirations are symmetrical and nonlabored. Oxygen saturation are 96% on 4 L nasal cannula. She is achieving 500 mL on her incentive spirometry. - Cardiovascular Details: Regular rhythm and rate. S1 and S2 present, negative for S3, gallop or murmur. Sternum is stable. Bedside telemetry showing normal sinus rhythm. +1 generalized edema. Atrial and ventricular epicardial pacemaker wires intact and grounded. Heart hugger was in place and she is demonstrating appropriate use. Knee-high MAINTA hose and sequential compression devices in place to her bilateral lower extremities. - Gastrointestinal Gastrointestinal Comment(s): Abdomen is soft, nontender and nondistended. Active bowel sounds to all 4 abdominal quadrants. Tolerating oral intake. Passing flatus. - Genitourinary Genitourinary Comment(s): Voiding clear yellow urine. 390 mL output in the last 8 hours. - Integumentary Integumentary Comment(s): Skin is warm and dry. No clubbing or cyanosis present. Scattered ecchymotic areas to her bilateral upper and lower extremities and to her bilateral cheeks. Area of skin excoriation to her left brandon with scant serosanguineous drainage. Dressing remains dry and intact. Midline sternal incision clean, dry and approximated. No drainage or redness present. Left leg EVH sites clean , dry and approximated. LIZABETH drain remains in place to her left lower extremity with 40 mL of thin serosanguineous drainage in the last 8 hours. - Neurologic Neurologic: Present: CNII-XII intact - Musculoskeletal Musculoskeletal: Present: gait normal, generalized weakness, strength equal bilaterally - Allied health notes Allied health notes reviewed: nursing - Labs CBC & Chem 7: 01/03/18 04:35 01/03/18 04:35 Labs: Abnormal Lab Results - Last 24 Hours (Table) 01/02/18 01/02/18 01/02/18 Range/Units 06:21 21:22 21:49 WBC (3.8-10.6) k/uL RBC (3.80-5.40) m/uL Hgb (11.4-16.0) gm/dL Hct (34.0-46.0) % RDW (11.5-15.5) % Neutrophils # (1.3-7.7) k/uL Monocytes # (0-1.0) k/uL Sodium (137-145) mmol/L BUN (7-17) mg/dL Creatinine (0.52-1.04) mg/dL Glucose (74-99) mg/dL POC Glucose (mg/dL) 65 L 112 H (75-99) mg/dL Ferritin 443.8 H (10.0-291.0) ng/mL 01/03/18 01/03/18 01/03/18 Range/Units 00:58 04:35 04:35 WBC 14.8 H (3.8-10.6) k/uL RBC 2.38 L (3.80-5.40) m/uL Hgb 7.7 L (11.4-16.0) gm/dL Hct 23.3 L (34.0-46.0) % RDW 17.1 H (11.5-15.5) % Neutrophils # 12.2 H (1.3-7.7) k/uL Monocytes # 1.2 H (0-1.0) k/uL Sodium 135 L (137-145) mmol/L BUN 24 H (7-17) mg/dL Creatinine 0.45 L (0.52-1.04) mg/dL Glucose 114 H (74-99) mg/dL POC Glucose (mg/dL) 148 H (75-99) mg/dL Ferritin (10.0-291.0) ng/mL 01/03/18 01/03/18 01/03/18 Range/Units 07:40 11:47 17:37 WBC (3.8-10.6) k/uL RBC (3.80-5.40) m/uL Hgb (11.4-16.0) gm/dL Hct (34.0-46.0) % RDW (11.5-15.5) % Neutrophils # (1.3-7.7) k/uL Monocytes # (0-1.0) k/uL Sodium (137-145) mmol/L BUN (7-17) mg/dL Creatinine (0.52-1.04) mg/dL Glucose (74-99) mg/dL POC Glucose (mg/dL) 127 H 130 H 142 H (75-99) mg/dL Ferritin (10.0-291.0) ng/mL - Imaging and Cardiology Chest x-ray: report reviewed, image reviewed Assessment and Plan (1) History of fall Current Visit: Yes Status: Acute Code(s): Z91.81 - HISTORY OF FALLING SNOMED Code(s): 487123702 (2) CAD (coronary artery disease) Current Visit: Yes Status: Chronic Code(s): I25.10 - ATHSCL HEART DISEASE OF [place] CORONARY ARTERY W/O ANG PCTRS SNOMED Code(s): 59720571 (3) Hypertension Current Visit: Yes Status: Chronic Code(s): I10 - ESSENTIAL (PRIMARY) HYPERTENSION SNOMED Code(s): 50099063 (4) Peripheral vascular disease Current Visit: Yes Status: Chronic Code(s): I73.9 - PERIPHERAL VASCULAR DISEASE, UNSPECIFIED SNOMED Code(s): 725689179 (5) Facial contusion Current Visit: No Status: Acute Code(s): S00.83XA - CONTUSION OF OTHER PART OF HEAD, INITIAL ENCOUNTER SNOMED Code(s): 776729903 (6) History of pulmonary embolism Current Visit: No Status: Resolved Code(s): Z86.711 - PERSONAL HISTORY OF PULMONARY EMBOLISM SNOMED Code(s): 169065145 (7) Tobacco dependence in remission Current Visit: No Status: Resolved Code(s): F17.201 - NICOTINE DEPENDENCE, UNSPECIFIED, IN REMISSION SNOMED Code(s): 429031612 Plan: 1. Continue low-dose aspirin, heparin subcu, Plavix, statin and beta jaida. We will increase her beta jaida as tolerated. 2. Wean O2 as tolerated, encourage incentive spirometry 10 times every hour while awake. 3. Bronchodilators, steroids management per Dr. Child's recommendations. 4. Increase activity as tolerated. Out of bed for all meals. PT/OT/cardiac rehab following. 5. Will monitor daily labs and chest x-rays. 6. Lasix 20 mg IV 1 now. 7. Pain control with current medication regimen. 8. GI prophylaxis with Protonix. DVT prophylaxis with subcu heparin, SCDs. 9. Increase Cozaar to 75 mg by mouth daily. 10. We will transfer the patient to [address] [place] [address] cardiac stepdown unit today when bed available. 11. Remove left lower extremity LIZABETH drain. 12. Consult Dr. Celaya for possible inpatient rehab placement. 13. Discharge planning is in place. 14. Remove atrial and ventricular epicardial pacemaker wires. Bed rest for 1 hour post pacemaker wire removal. 15. More recommendations to follow based on her clinical course. Time with Patient: Greater than 30
[2018-01-03 21:26] LABS: Glucose,Whole Blood 149 mg/dL (75-99)
[2018-01-03] MEDS: SENNOSIDES-DOCUSATE SODIUM 1 EACH TAB PO SCH (21:55)
[2018-01-03] MEDS: MELATONIN 3 MG TABLET PO SCH (21:56)
[2018-01-04] MEDS: HEPARIN SODIUM,PORCINE 5,000 UNIT/ML 1 ML VIAL SQ SCH ×3 (00:42→17:31)
[2018-01-04 04:59] LABS: Anisocytosis Slight; Basophils % (A) 0 %; Eosinophils # (A) 0.1 k/uL (0-0.7); Eosinophils % (A) 1 %; HCT 24.2 % (34.0-46.0); Hypochromasia Slight; Lymphocytes # (A) 0.9 k/uL (1.0-4.8); Lymphocytes % (A) 7 %; MCH 32.5 pg (25.0-35.0); MCHC 32.9 g/dL (31.0-37.0); MCV 98.7 fL (80.0-100.0); Macrocytosis Slight; Monocytes # (A) 0.7 k/uL (0-1.0); Monocytes % (A) 4 %; Neutrophils # (A) 12.9 k/uL (1.3-7.7); Neutrophils % (A) 88 %; Platelet Count 195 k/uL (150-450); RBC 2.45 m/uL (3.80-5.40); RDW 18.4 % (11.5-15.5); WBC 14.6 k/uL (3.8-10.6)
[2018-01-04 05:08] LABS: Potassium 3.6 mmol/L (3.5-5.1)
[2018-01-04 05:09] LABS: Anion Gap 6 mmol/L; Blood Urea Nitrogen 19 mg/dL (7-17); Calcium 8.2 mg/dL (8.4-10.2); Carbon Dioxide 34 mmol/L (22-30); Chloride 95 mmol/L (98-107); Glucose 129 mg/dL (74-99); Sodium 135 mmol/L (137-145)
[2018-01-04] MEDS ORDERED: Potassium Replacement Protocol 1 EACH MISC MISCELLANE PRN (06:19)
[2018-01-04] MEDS: LEVOTHYROXINE 25 MCG TAB PO SCH (06:34)
[2018-01-04] MEDS: PANTOPRAZOLE 40 MG TABLET PO SCH (06:35)
[2018-01-04] MEDS: INSULIN ASPART 100 UNIT/ML 1 ML 10 ML VIAL SQ SCH ×4 (06:43→21:12)
[2018-01-04 06:46] LABS: Glucose,Whole Blood 116 mg/dL (75-99)
[2018-01-04] MEDS ORDERED: POTASSIUM CHLORIDE ER 20 MEQ TAB.ER PO SCH (07:00)
[2018-01-04] MEDS: IPRATROPIUM-ALBUTEROL 3 ML NEB INHALATION SCH ×4 (07:54→19:21)
[2018-01-04] MEDS: FORMOTEROL FUMARATE 20 MCG/2 ML NEBU INHALATION SCH ×2 (07:54→19:33)
[2018-01-04] MEDS: BUDESONIDE 0.5 MG/2 ML NEBU INHALATION SCH ×2 (07:54→19:20)
--- NOTE | 2018-01-04 08:04 | XR ---
EXAMINATION TYPE: XR chest 1V portable DATE OF EXAM: 01/04/2018 COMPARISON: Prior chest x-ray 01/03/2018 HISTORY: Status post coronary artery bypass graft TECHNIQUE: Single frontal view of the chest is obtained. FINDINGS: Patient is post median sternotomy. Heart size is enlarged and stable. Bibasilar increased density persists. There are overlying cardiac leads. No evident pneumothorax. There is some improveme nt in aeration at the right lung base, interval improved visualization of the right hemidiaphragm. IMPRESSION: Findings are similar to prior exam. Basilar effusions and associated atelectasis, correl ate to exclude pneumonia versus edema.
--- NOTE | 2018-01-04 09:12 | P.PN ---
Subjective Progress Note Date: 01/04/18 Principal diagnosis: Status post CABG for triple vessel coronary artery disease, postoperative day # 7 This is a 77-year-old female patient, known history of COPD with a preop FEV1 of 70% of predicted, and addition to coronary artery disease, peripheral vascular disease and hypertension, who was experiencing symptoms of exertional dyspnea and angina. She underwent stress test and she was found to have reversible ischemia and based on that the patient underwent a cardiac catheterization and she was found to have extreme calcified right and left coronary arteries, severe triple-vessel disease, severe disease involving the proximal RCA, severe disease involving the ostial circumflex and severe disease involving the ostial left anterior descending coronary artery. Based on this, the patient was referred for bypass surgery and the patient underwent three- vessel bypass with LOPES to LAD. Preop echocardiogram showed a preserved LV function with an ejection fraction of 55-60%. The patient has mild concentric left ventricular hypertrophy. I'm seeing this patient immediately after she arrived to the intensive care unit. She is sedated, comfortable likely distress. She is on a mechanical ventilator. She is an assist-control mode of ventilation, at a rate of 12, tidal volume of 400 with an FiO2 of 100% and PEEP of 5. Chest x-ray showed adequate expansion of both lungs. The patient is to mediastinal and 1 pleural chest tube on the left. Output is minimal at this point. There is no evidence of any air leak. There is no evidence of pneumothorax. The the blood gas showed a pH of 7.31 with a pCO2 of 46 and FiO2 is more than 400. Based on these results, increased respiratory rate up to 18. And I also drop the FiO2 down to 50%. She is producing adequate amount of urine output. She arrived to the ICU from the operating room with 12 mics of levo fed and currently she is off pressors. Cardiac output is at 2.6 with an index of 4.4. Pulmonary artery pressures are nonelevated. On 12/29/2017, the patient is postop day #1. The patient was kept intubated and mechanically ventilated overnight as the patient was having issues with increased output from the chest tubes, anemia, low cardiac output and difficulties with her weaning parameters overnight, the patient was given a total of 2 units of packed RBC 4 hemoglobin of 5.2. Subsequent hemoglobin came up to 6.4 and following that was up down to 5.8. The patient was given an additional 2 units of packed RBC this morning. Doppler from the chest tubes have decline. Overall output has been 800 mL of the mediastinal chest tubes and at times cc from the pleural chest tube as the patient arrived from the operating room. The patient was also given fresh frozen plasma total of 2 units. The patient was kept sedated with Diprivan and she remained calm and comfortable. There were 2 attempts to wean this patient a mechanical ventilator overnight. Her weaning parameters of borderline. Subsequent blood gases showed respiratory acidosis and I did not feel comfortable extubating this patient. Based on this, the patient was kept intubated on mechanical ventilator throughout the night. This morning, following transfusion with 2 units of packed RBC, the patient seemed to hemodynamically stable and she was doing okay. As such she was taken off the sedation and she was given a spelled his breathing trial with a pressure support of 5 and a PEEP of 5. His subsequent blood gases showed a mild component of respiratory acidosis with pCO2 of 50 and pH of 7.30. At that point, the patient was awake and she was following commands. She did not show any signs of respiratory distress. I decide to extubate this patient to a nasal cannula. Postextubation, the patient was followed up very closely. She was noted to bronchospastic and wheezy. Based on that, she was given IV Solu-Medrol. Following that she was placed on a BiPAP at a pressure of 14/5 cm of water with an FiO2 of 50%. The most recent blood gases showed a pH of 7.34 with a pCO2 of 42 and pO2 of 65 and this was done and FiO2 of 40%. The patient was somewhat restless and was getting agitated in bed. Based on that, I put her on Precedex and currently it is at 0.4 g per KG per hour. The chest x-ray from earlier this morning showed small better pleural effusion. There was cardiomegaly. [place] catheter was in place. Rest of the chest were all in place. There was some limited bibasilar consolidation. She is afebrile. She is hemodynamically stable and currently the cardiac index is above 2.. Most recent hemoglobin is at 7.2. She is afebrile. She is on no pressors at this point in time. Cardiac rhythm is sinus. On 12/30/2017 the patient is postop day #2. As noted, and as mentioned earlier , the patient was extubated yesterday and postextubation the patient became bronchospastic and wheezy and she had significant respiratory distress. At that point she was started on BiPAP for respiratory support at a pressure of 14/ 6 cm of water. FiO2 was kept at 50%. The patient had some difficulties initially to tolerate the BiPAP. She was restarted on Precedex and the dose was titrated to control her agitation. With these changes, she did extremely well and overnight she was kept on a BiPAP and in the center she was placed on a combination of bronchodilators steroids which optimize her COPD exacerbation. This morning, the patient was taken off the BiPAP and she was placed on 5 L of oxygen nasal cannula. The chest x-ray from today shows a small right-sided pleural effusion. Chest tubes are all in place and output is diminished compared to yesterday with a stable hemoglobin. Hemodynamically, the patient is on no pressors. Cardiac index is at 1.9. She is producing adequate urine output. Hemoglobin is also stable. Based on all this, I weaned her off the Precedex earlier this morning and subsequently discontinued the BiPAP and currently she sometimes of oxygen by nasal cannula. She is breathing easier. She is less short of breath compared to yesterday. Chest tubes are all in place. Sternum stable clean and intact. The patient has a skin laceration left lower extremity and local wound care is being done and the LIZABETH drain is also in place. She is moving all 4 extremities without any limitation. No nausea. No vomiting. No emesis. No cardiac arrhythmias. She has a hemoglobin of 7.4. White cell count is nonelevated. Blood work and electrodes are all within normal limits earlier this morning. Blood sugars of 118. On 12/31/2017, I'm seeing this patient for a follow-up. Our efforts have succeeded in weaning patient off the BiPAP. Note that yesterday she became short of breath and she had to be placed on BiPAP with low dose Precedex for discomfort and agitation and restlessness. This morning she was weaned off and she is currently on 5 L of oxygen by nasal cannula sitting up on a recliner. Extremities no chest tubes are in place. The left pleural chest tube in the right pleural chest were also in place. The patient has put out approximately 80 mL from the left-sided pleural chest tube and frontal 30 mL over the past 24 hours. He still chest tubes have drain 60 mL over the past 8 hours and 12 mL over the past 24 hours. We're considering removal at least on the chest tube. The patient is pulling approximately 500 mL on the incentive spirometer. The LIZABETH drains in place in the left lower extremity and output has been around 48 and she is over the past 8 hours. There is a skin laceration which is being taken care of by local wound care. Sternum stable clean and intact. Hemodynamically stable. A dose of Lasix 40 mg IV push was given today. The cardiac rhythm is sinus. The patient is less bronchus spastic and wheezy compared to yesterday. She remains on DuoNeb neb treatments around the clock, she is also on a combination with as a night and Perforomist nebulized treatments twice a day and IV Solu Medrol. Hemoglobin from today is 6.9 and we' re holding of any blood transfusions for now. Patient is currently on Levemir 12 units in addition to coverage. On 01/01/2018, I'm seeing this patient for a follow-up. She remains in the intensive care unit. She is currently on oxygen by nasal cannula. Breathing is easier. Less short of breath. Chest tubes will be removed today and output has been minimal for now and the patient's chest x-ray showing small better pleural effusion more so on the right and the patient was given a dose of Lasix. Sternum stable clean and intact. Cardiac rhythm is sinus. The patient is using incentive spirometer and she is pulling approximately 500 mL she is equivalent to yesterday. Note that the left-sided chest tube has drained approximately 105 over the past 8 hours and to 45 over the past 24 hours. As for the mediastinal chest tubes have drain 60 mL over the past 8 hours and 140s over the past 24 hours. The fluid balance is -1.3 L over the past 24 hours. The [place] catheter has been removed. The patient is on bronchodilators. The patient is on systemic steroids. Hemoglobin is stable at 7.9. Normal renal function for now. No altered mentation. She is awake and following commands and answering questions appropriately. Chest x-ray was reviewed. Reevaluated today on 01/02/2018, patient remains on 5 L nasal cannula, O2 saturation is marginal, patient remains to do poorly with incentive spirometry, intermittent episodes of confusion at night was noted. Chest x-ray did show small bilateral pleural effusions, patient remains on diuretics. Labs were all reviewed, renal profile is normal. Hemoglobin is 7.3. Patient continues to have some dyspnea on exertion. Reevaluated today on 01/03/2018, remains on 5 L nasal cannula, patient is doing well, asymptomatic, seems to be more awake and active this morning. She is doing a bit better with incentive spirometry. And definitely no episodes of confusion today. Chest x-ray continues to show small bilateral effusions, and the patient remains on diuretics. Hemoglobin today is 7.7. Electrodes are normal renal profile is relatively normal. Chest x-ray was reviewed. Reevaluated today on 01/04/2018, patient is doing well, she is actually an overflow in the ICU from selective. No major issues overnight, agent remains on few liters nasal cannula, in no distress, asymptomatic, and no confusion or delirium. Labs and chest x-ray were reviewed, minimal left basilar atelectasis and small tiny effusion noted. CBC is relatively normal hemoglobin is holding at 8 electrolytes and renal profile are normal. Objective - Vital Signs Vital signs: Vital Signs Temp 97.8 F 01/04/18 04:00 Pulse 93 01/04/18 08:12 Resp 20 01/04/18 05:00 BP 119/73 01/04/18 05:00 Pulse Ox 94 L 01/04/18 07:57 Intake & Output 01/03/18 01/04/18 01/04/18 18:59 06:59 18:59 Intake Total 800 360 200 Output Total 360 800 Balance 440 -440 200 Weight 64.1 kg Intake: Oral 800 360 200 Output: Drainage 10 Left Calf 10 Urine 350 800 Other: Voiding Method Toilet Toilet # Voids 0 1 ABP, PAP, CO, CI - Last Documented Arterial Blood Pressure 156/117 Pulmonary Artery Pressure 33/17 Cardiac Output 4 Cardiac Index 2.6 - Exam Physical Exam: Revealed a 77-year-old female, in no distress. Head: Atraumatic, normocephalic. HEENT:[Neck is supple.] [No neck masses.] [No thyromegaly.] [No JVD.] No icterus, moist mucous membranes. Chest: [Diminished breath sounds and dullness at the bases bilaterally, no rhonchi and no wheezes. No chest wall tenderness. Symmetrical chest expansion. ] Cardiac Exam: [Normal S1 and S2, no S3 gallop, no murmur.] Abdomen: [Soft, nontender, no megaly, no rebound, no guarding, normal bowel sounds.] Extremities: Both were wrapped with Mario bandage, left LIZABETH drain noted in the left lower extremity with sanguinous drainage noted Neurological Exam: Alert oriented 3, no gross focal neurologic deficits. Psychiatric: Normal mood, affect and mental status examination. Skin: No rashes. Left LIZABETH drain noted in the left lower extremity. Both lower extremities are wrapped with Mario wrapping. - Labs CBC & Chem 7: 01/04/18 04:41 01/04/18 04:41 Labs: Abnormal Lab Results - Last 24 Hours (Table) 01/03/18 01/03/18 01/03/18 Range/Units 11:47 17:37 21:12 WBC (3.8-10.6) k/uL RBC (3.80-5.40) m/uL Hgb (11.4-16.0) gm/dL Hct (34.0-46.0) % RDW (11.5-15.5) % Neutrophils # (1.3-7.7) k/uL Lymphocytes # (1.0-4.8) k/uL Sodium (137-145) mmol/L Chloride (98-107) mmol/L Carbon Dioxide (22-30) mmol/L BUN (7-17) mg/dL Creatinine (0.52-1.04) mg/dL Glucose (74-99) mg/dL POC Glucose (mg/dL) 130 H 142 H 149 H (75-99) mg/dL Calcium (8.4-10.2) mg/dL 01/04/18 01/04/18 01/04/18 Range/Units 04:41 04:41 06:43 WBC 14.6 H (3.8-10.6) k/uL RBC 2.45 L (3.80-5.40) m/uL Hgb 8.0 L (11.4-16.0) gm/dL Hct 24.2 L (34.0-46.0) % RDW 18.4 H (11.5-15.5) % Neutrophils # 12.9 H (1.3-7.7) k/uL Lymphocytes # 0.9 L (1.0-4.8) k/uL Sodium 135 L (137-145) mmol/L Chloride 95 L (98-107) mmol/L Carbon Dioxide 34 H (22-30) mmol/L BUN 19 H (7-17) mg/dL Creatinine 0.47 L (0.52-1.04) mg/dL Glucose 129 H (74-99) mg/dL POC Glucose (mg/dL) 116 H (75-99) mg/dL Calcium 8.2 L (8.4-10.2) mg/dL Assessment and Plan Assessment: Impression: Status post triple-vessel CABG postoperative day #7 Bilateral pleural effusions with postoperative changes, expected post CABG. And areas of atelectasis/expected post CABG. Acute on chronic hypoxic respiratory failure multifactorial secondary to COPD and bilateral pleural effusion. Multiple comorbidities including underlying COPD, chronic back pain, hypothyroidism, hypertension,. Recommendation: Continue bronchodilators, continue diuretics, change Solu- Medrol to Medrol Dosepak, a new incentive spirometry, and ambulation. Patient could be practically discharged to a rehab facility today or in the next 24 hours if agreeable with cardiac surgery. We'll continue to follow. Discussed and reviewed the chest x-ray findings with the patient Time with Patient: Less than 30
[2018-01-04] MEDS ORDERED: methylPREDNISolone 4 MG TAB TAPER PO SCH (09:15)
[2018-01-04] MEDS: NYSTATIN 100,000 UNIT/ML SUSP 500,000 UNIT/5 ML CUP PO SCH ×4 (09:21→22:16)
[2018-01-04] MEDS: LOSARTAN 25 MG TAB PO SCH (09:22)
[2018-01-04] MEDS: ASPIRIN 81 MG PO SCH (09:22)
[2018-01-04] MEDS: METOPROLOL TARTRATE 50 MG TAB PO SCH ×2 (09:22→22:16)
[2018-01-04] MEDS: amLODIPine 5 MG TAB PO SCH (09:22)
[2018-01-04] MEDS: buPROPion 75 MG TAB PO SCH (09:22)
[2018-01-04] MEDS: ATORVASTATIN 40 MG TAB PO SCH (09:22)
[2018-01-04] MEDS: CLOPIDOGREL 75 MG TAB PO SCH (09:22)
[2018-01-04] MEDS ORDERED: FUROSEMIDE 10 MG/ML 4 ML VIAL IV STA ×2 (09:53→14:29)
[2018-01-04] MEDS ORDERED: FUROSEMIDE 10 MG/ML 2 ML VIAL IV STA (09:56)
[2018-01-04 10:47] LABS: ABG Base Excess -3.8 mmol/L; ABG HCO3 21 mmol/L (21-25); ABG PCO2 32 mmHg (35-45); ABG PH 7.42 (7.35-7.45); ABG PO2 211 mmHg (83-108); ABG TCO2 22 mmol/L (19-24)
[2018-01-04] MEDS ORDERED: SODIUM CHLORIDE 0.9% 1,000 ML IV ONE (10:48)
[2018-01-04 10:59] LABS: Glucose,Whole Blood 215 mg/dL (75-99)
--- NOTE | 2018-01-04 11:29 | PN ---
PROGRESS NOTE This patient's medical records reviewed. The patient is status post coronary artery bypass surgery. This patient was stable until this morning without any problem. The patient had pacemaker wires pulled out this morning. Subsequently she went to sit in the chair and she got short of breath, then she was put in the bed. The patient was tachypneic. It was very difficult to feel any pulses. Stat echocardiogram was obtained, which shows moderate degree of pericardial effusion predominantly anterolaterally with evidence of clots. There is no definite evidence of any right ventricular collapse. First and second heart sounds are heard. Heart tones are distant. IMPRESSION: 1. This patient had a sudden episode of hypotension after pulling the wire. There is a possibility of impending cardiac tamponade. Echocardiogram shows evidence of predominantly anterolateral moderate degree of pericardial effusion with evidence of clots. 2. Hypotension. 3. Status post coronary artery bypass surgery. 4. Arterial blood gases does not show any significant abnormality except some degree of metabolic acidosis. RECOMMENDATIONS: Patient would be given intravenous fluids and if there is no improvement in the patient's blood pressure, may need exploration. Discussed with the cardiothoracic nurse practitioner. MMODL / IJN: [id number] /
--- NOTE | 2018-01-04 11:49 | XR ---
EXAMINATION TYPE: XR chest 1V portable DATE OF EXAM: 01/04/2018 COMPARISON: Prior chest x-ray 01/04/2018 HISTORY: Shortness of breath, difficulty breathing TECHNIQUE: Single frontal view of the chest is obtained. FINDINGS: Patient is post median sternotomy and rotated. The heart is enlarged. Bibasilar density pe rsists left greater than right. There is no evident pneumothorax. Aorta is dense. IMPRESSION: Findings are similar to prior exam. Basilar atelectasis and associated effusion left gre ater than right, correlate to exclude pneumonia.
--- NOTE | 2018-01-04 11:54 | P.PN ---
Subjective Progress Note Date: 01/04/18 Principal diagnosis: Triple-vessel coronary artery disease. Preserved left ventricular function. Chronic degenerative arthritis, History of mild chronic obstructive pulmonary disease with preoperative FEV1 70% of predicted, severe peripheral vascular disease, hypertension, remote history of pulmonary embolism, hypothyroid, and previous tobacco dependence. History of fall from standing preoperatively. POD #7 triple coronary artery bypass grafting using the left internal mammary artery to the left anterior descending coronary artery, a reverse greater saphenous vein graft from the aorta to the first obtuse marginal coronary artery , a reverse greater saphenous vein graft from the aorta to the posterior descending coronary artery, endoscopic harvesting of the left greater saphenous vein, intraoperative transesophageal echocardiogram and epi-aortic scanning, intraoperative graft flow measurements using the Sanrad system. Postoperative acute blood loss anemia, an unexpected outcome. The patient is currently laying in bed. Her epicardial pacemaker wires were removed at 7:30 AM this morning without incident. At around 10 AM this morning while ambulating to the bathroom the patient became weak and unsteady. She was assisted back to bed and placed on BiPAP support 14/ with a rate of 12 FiO2 50% . An ABG was obtained and the results showed a pH 7.42, pCO2 32, pO2 211, HCO3 21, oxygen saturation 100%, and a base excess -3.8. She was hypotensive and a 250 mL bolus of albumin was administered and currently has a liter 0.9% normal saline infusing. She opens up her eyes to verbal command, moves all 4 extremities appropriately with verbal stimuli. She is complaining of left lower extremity pain. Currently her bedside monitor showing a normal sinus rhythm heart rate 68, blood pressure 92/56 with a map of 69. Her is at her bedside and has been updated on her care. A repeat 2-D echocardiogram will be obtained at 1 PM. Objective - Vital Signs Vital signs: Vital Signs Temp 97.8 F 01/04/18 04:00 Pulse 80 01/04/18 11:15 Resp 20 01/04/18 05:00 BP 119/73 01/04/18 05:00 Pulse Ox 94 L 01/04/18 07:57 Intake & Output 01/03/18 01/04/18 01/04/18 18:59 06:59 18:59 Intake Total 800 360 200 Output Total 360 800 Balance 440 -440 200 Weight 64.1 kg Intake: Oral 800 360 200 Output: Drainage 10 Left Calf 10 Urine 350 800 Other: Voiding Method Toilet Toilet # Voids 0 1 ABP, PAP, CO, CI - Last Documented Arterial Blood Pressure 156/117 Pulmonary Artery Pressure 33/17 Cardiac Output 4 Cardiac Index 2.6 - Constitutional General appearance: Present: cooperative, no acute distress - Respiratory Details: Lungs sounds essentially diminished throughout. Respirations are symmetrical and nonlabored with BiPAP support. Current BiPAP settings are 14/5, rate 12, FiO2 50%. Oxygen saturations are 100% on BiPAP support. - Cardiovascular Details: Regular rhythm and rate. S1 and S2 present, negative for S3, gallop or murmur. Sternum is stable. Remote telemetry showing normal sinus rhythm heart rate 68. Heart hugger's in place and she is demonstrating appropriate use. Left lower extremity Mario wrap in place from toes to just below the knee, knee-high AMINTA hose in place to right lower extremity, knee-high sequential compression devices in place her bilateral lower extremities. Epicardial pacemaker wires atrial and ventricular were removed without incident at 7:30 this morning. - Gastrointestinal Gastrointestinal Comment(s): Abdomen is soft, nontender and nondistended. Active bowel sounds all 4 abdominal quadrants. No organomegaly. No guarding or rigidity. - Genitourinary Genitourinary Comment(s): Voiding clear yellow urine. 450 mL of urine output the last 8 hours. - Neurologic Neurologic: Present: CNII-XII intact - Musculoskeletal Musculoskeletal: Present: generalized weakness, strength equal bilaterally - Psychiatric Psychiatric: Present: A&O x's 3, appropriate affect, intact judgment & insight - Allied health notes Allied health notes reviewed: nursing - Labs CBC & Chem 7: 01/04/18 04:41 01/04/18 04:41 Labs: Abnormal Lab Results - Last 24 Hours (Table) 01/03/18 01/03/18 01/03/18 Range/Units 11:47 17:37 21:12 WBC (3.8-10.6) k/uL RBC (3.80-5.40) m/uL Hgb (11.4-16.0) gm/dL Hct (34.0-46.0) % RDW (11.5-15.5) % Neutrophils # (1.3-7.7) k/uL Lymphocytes # (1.0-4.8) k/uL ABG pCO2 (35-45) mmHg ABG pO2 (83-108) mmHg ABG O2 Saturation (94-97) % Sodium (137-145) mmol/L Chloride (98-107) mmol/L Carbon Dioxide (22-30) mmol/L BUN (7-17) mg/dL Creatinine (0.52-1.04) mg/dL Glucose (74-99) mg/dL POC Glucose (mg/dL) 130 H 142 H 149 H (75-99) mg/dL Calcium (8.4-10.2) mg/dL 01/04/18 01/04/18 01/04/18 Range/Units 04:41 04:41 06:43 WBC 14.6 H (3.8-10.6) k/uL RBC 2.45 L (3.80-5.40) m/uL Hgb 8.0 L (11.4-16.0) gm/dL Hct 24.2 L (34.0-46.0) % RDW 18.4 H (11.5-15.5) % Neutrophils # 12.9 H (1.3-7.7) k/uL Lymphocytes # 0.9 L (1.0-4.8) k/uL ABG pCO2 (35-45) mmHg ABG pO2 (83-108) mmHg ABG O2 Saturation (94-97) % Sodium 135 L (137-145) mmol/L Chloride 95 L (98-107) mmol/L Carbon Dioxide 34 H (22-30) mmol/L BUN 19 H (7-17) mg/dL Creatinine 0.47 L (0.52-1.04) mg/dL Glucose 129 H (74-99) mg/dL POC Glucose (mg/dL) 116 H (75-99) mg/dL Calcium 8.2 L (8.4-10.2) mg/dL 01/04/18 01/04/18 Range/Units 10:45 10:57 WBC (3.8-10.6) k/uL RBC (3.80-5.40) m/uL Hgb (11.4-16.0) gm/dL Hct (34.0-46.0) % RDW (11.5-15.5) % Neutrophils # (1.3-7.7) k/uL Lymphocytes # (1.0-4.8) k/uL ABG pCO2 32 L (35-45) mmHg ABG pO2 211 H (83-108) mmHg ABG O2 Saturation 100.0 H (94-97) % Sodium (137-145) mmol/L Chloride (98-107) mmol/L Carbon Dioxide (22-30) mmol/L BUN (7-17) mg/dL Creatinine (0.52-1.04) mg/dL Glucose (74-99) mg/dL POC Glucose (mg/dL) 215 H (75-99) mg/dL Calcium (8.4-10.2) mg/dL - Imaging and Cardiology Chest x-ray: report reviewed, image reviewed Dr. Samson reviewed the bedside 2-D echocardiogram. Assessment and Plan (1) History of fall Current Visit: Yes Status: Acute Code(s): Z91.81 - HISTORY OF FALLING SNOMED Code(s): 035849555 (2) CAD (coronary artery disease) Current Visit: Yes Status: Chronic Code(s): I25.10 - ATHSCL HEART DISEASE OF [place] CORONARY ARTERY W/O ANG PCTRS SNOMED Code(s): 95131357 (3) Hypertension Current Visit: Yes Status: Chronic Code(s): I10 - ESSENTIAL (PRIMARY) HYPERTENSION SNOMED Code(s): 44226524 (4) Peripheral vascular disease Current Visit: Yes Status: Chronic Code(s): I73.9 - PERIPHERAL VASCULAR DISEASE, UNSPECIFIED SNOMED Code(s): 988861101 (5) Facial contusion Current Visit: No Status: Acute Code(s): S00.83XA - CONTUSION OF OTHER PART OF HEAD, INITIAL ENCOUNTER SNOMED Code(s): 701179501 (6) History of pulmonary embolism Current Visit: No Status: Resolved Code(s): Z86.711 - PERSONAL HISTORY OF PULMONARY EMBOLISM SNOMED Code(s): 084299111 (7) Tobacco dependence in remission Current Visit: No Status: Resolved Code(s): F17.201 - NICOTINE DEPENDENCE, UNSPECIFIED, IN REMISSION SNOMED Code(s): 280818665 Plan: 1. Continue low-dose aspirin, heparin subcu, Plavix, statin and beta jaida. We will increase her beta jaida as tolerated. 2. Wean O2 as tolerated, encourage incentive spirometry 10 times every hour while awake. 3. Bronchodilators, steroids management per Dr. Child's recommendations. 4. Increase activity as tolerated. Out of bed for all meals. PT/OT/cardiac rehab following. 5. Will monitor daily labs and chest x-rays. 6. Hold Cozaar and Norvasc, for hypotension. 7. Pain control with current medication regimen. 8. GI prophylaxis with Protonix. DVT prophylaxis with subcu heparin, SCDs. 9. Albumin 5% 250 mL bolus 1 now for hypotension. 1 L 0.9% normal saline bolus 1 now. 10. We will transfer the patient back to ICU care. 11. BiPAP management per Dr. Child's recommendations.. 12. We will hold transfer to inpatient rehab for now. 13. Repeat 2-D echocardiogram at 1 PM to assess for pericardial effusion. 14. More recommendations to follow based on her clinical course. Time with Patient: Greater than 30
[2018-01-04] MEDS: ASCORBIC ACID 500 MG TAB PO SCH (11:58)
[2018-01-04 12:47] LABS: Anisocytosis Slight; Hypochromasia Slight; MCH 31.1 pg (25.0-35.0); MCV 100.2 fL (80.0-100.0); Macrocytosis Slight; Platelet Count 160 k/uL (150-450); RBC 1.89 m/uL (3.80-5.40); RDW 18.7 % (11.5-15.5)
--- NOTE | 2018-01-04 12:49 | ECHOF ---
Referral Reason:Assess LV function MEASUREMENTS -------- HEIGHT: 157.5 cm WEIGHT: 64.0 kg BP: 104/84 FINDINGS -------- Limited Study Overall left ventricular systolic function is normal with, an EF between 65 - 70 %. There is a moderate pericardial effusion is located near the right ventricle. Pleural Effusion with Fibrin. CONCLUSIONS -------- 1. Limited Study 2. Overall left ventricular systolic function is normal with, an EF between 65 - 70 %. 3. There is a moderate pericardial effusion is located near the right ventricle. 4. Pleural Effusion with Fibrin. BALLET DANCER: Vicki Dhillon RDCS
[2018-01-04 12:52] LABS: HGB 5.9 gm/dL (11.4-16.0)
[2018-01-04 12:53] LABS: HCT 18.9 % (34.0-46.0)
[2018-01-04 13:32] LABS: Band Neutrophils % 3 %; Lymphocytes # (M) 1.66 k/uL (1.0-4.8); Metamyelocytes % 3 %; Monocytes # (M) 0.83 k/uL (0-1.0); Myelocytes # (M) 0.33 k/uL (0); Myelocytes % 2 %; Neutrophils % (M) 76 %; Nucleated Red Blood Cells 3 /100 WBC (0-0); Total Cells Counted 200; WBC 16.6 k/uL (3.8-10.6)
[2018-01-04 13:33] LABS: Polychromasia Present; Toxic Granulation Present
--- NOTE | 2018-01-04 15:13 | P.PN ---
Subjective Progress Note Date: 01/04/18 This is a 77-year-old female one of my patient with a previous medical history significant for COPD, coronary artery disease, peripheral vascular disease and hypertension, who was experiencing symptoms of exertional dyspnea and angina. She underwent stress test and she was found to have reversible ischemia and based on that the patient underwent a cardiac catheterization and she was found to have extreme calcified right and left coronary arteries, severe triple-vessel disease, severe disease involving the proximal RCA, severe disease involving the ostial circumflex and severe disease involving the ostial left anterior descending coronary artery. Based on this, the patient was referred for bypass surgery and the patient underwent three- vessel bypass with LOPES to LAD, SVG to OM and SVG to PDA, Preop echocardiogram showed a preserved LV function with an ejection fraction of 55-60%. The patient has mild concentric left ventricular hypertrophy, patient was admitted to intensive care unit she is currently on assist mode ventilation with FiO2 of 40% tidal volume of 400 and PEEP of 5, patient was slightly agitated earlier today in the morning and this is delayed her expiration this will be reevaluated in the next few hours hopefully she'll be extubated her on today. 12/30: Patient has been successfully extubated. She remains in the intensive care unit. Patient did have some anxiety issues and a sitter is at the bedside. She states that she is feeling "droggy" but is quite talkative. She denies having any headache. Positive cough. She denies passing any gas. No bowel movement. Her chest pain is currently controlled. She denies any shortness of breath. Chest tubes, Segovia, right-sided cordis remain in place. Patient has a LIZABETH drain to the left lower extremity. Blood sugars are running in the low 100s and we will plan to transition her over to Levemir and NovoLog scale and discontinue insulin drip. Hemoglobin is 7.4, platelet count 82. patient is status post total of 4 units packed RBCs and 2 fresh frozen plasma, 1 platelet. 01/02: Patient remains in the intensive care unit. Her blood sugars are running 84-108 and Levemir decreased to 8 units and held for today. She is currently on oxygen at 4 L nasal cannula pulse oxing 97%. Over the weekend, Segovia catheter and chest tubes were removed. She did have some confusion during the night with concern for owners. We will add in melatonin for sleep. Patient is scheduled for transfer to [facility] care. 01/03: Patient's blood sugars were running low and we will discontinue the long- acting Levemir and continue only NovoLog scale. Patient is only reaching 500 on incentive spirometry. She is eating okay and has had formed stools. She denies having any chest pain. She does complain of feeling tired and fatigues easily. She apparently was a little agitated during the night and got herself up into a chair alone but no major problems. Patient is now a selective care overflow. 01/04: Patient has been evaluated by Dr. Dorantes with plan for transfer to the [facility] for inpatient rehab. Patient is a 2 person assist and doubt the patient appropriate for inpatient rehab. Patient continues to wait for bed in selective care unit. Solu-Medrol has been changed to Medrol Dosepak. She was cleared for discharge by pulmonary medicine. Pulse ox is 94% on 4 L. White count is 14.6, hemoglobin 8.0, platelet count 195. Unfortunately , after patient had pacer wires removed she became bradycardic and unresponsive. She was given 1 L of IV fluids, she is currently on BiPAP and echocardiogram has been ordered with concern for internal bleeding. Patient is noted to have a hematoma to the left upper inner thigh but no other sources of bleeding noted. The patient had a drop in her hemoglobin 5.9 is scheduled for transfusion today. Patient denies having shortness of breath or chest pain. She does complain of pain in the left lower leg. Review Of Systems: Constitutional: No fever, no chills, no night sweats. No weight change. + weakness, +fatigue no lethargy. + daytime sleepiness. EENT: No headache. No blurred vision or double vision, no loss of vision. No loss of Hearing, no ringing in the ears, no dizziness. No nasal drainage or congestion. No epistaxis. No sore throat. Lungs: No shortness of breath, +cough, + sputum production. No wheezing. Cardiovascular: No chest pain (controlled), no lower extremity edema. No palpitations. No paroxysmal nocturnal dyspnea. No orthopnea. No lightheadedness or dizziness. + syncopal episodes. Abdominal: No abdominal pain. No nausea, vomiting. No diarrhea. No constipation. No bloody or tarry stools. No loss of appetite. Genitourinary: No dysuria, increased frequency, urgency. No urinary retention. Musculoskeletal: No myalgias. + muscle weakness, no gait dysfunction, no frequent falls. No back pain. No neck pain. Integumentary: No wounds, no lesions. No rash or pruritus. No unusual bruising. No change in hair or nails. Neurologic: No aphasia. No facial droop. No change in mentation. No head injury. No headache. No paralysis. No paresthesia. Psychiatric: No depression. No anxiety. No mood swings. Endocrine: No abnormal blood sugars. No weight change. No excessive sweating or thirst. Objective - Vital Signs Vital signs: Vital Signs Temp 97.8 F 01/04/18 04:00 Pulse 93 01/04/18 08:12 Resp 20 01/04/18 05:00 BP 119/73 01/04/18 05:00 Pulse Ox 94 L 01/04/18 07:57 Intake & Output 01/03/18 01/04/18 01/04/18 18:59 06:59 18:59 Intake Total 800 360 200 Output Total 360 800 Balance 440 -440 200 Weight 64.1 kg Intake: Oral 800 360 200 Output: Drainage 10 Left Calf 10 Urine 350 800 Other: Voiding Method Toilet Toilet # Voids 0 1 ABP, PAP, CO, CI - Last Documented Arterial Blood Pressure 156/117 Pulmonary Artery Pressure 33/17 Cardiac Output 4 Cardiac Index 2.6 - Exam Constitutional General appearance: no acute distress, BiPAP in place - EENT ENT: Pupils equal round, conjunctiva slightly pale, mucous members of the mouth slightly dry. Trachea midline. Ears: bilateral: normal - Neck Neck: no lymphadenopathy Carotids: bilateral: upstroke delayed - Respiratory Respiratory: bilateral: diminished, rales, rhonchi, prolonged expiration, negative: dullness, wheezing - Cardiovascular Rhythm: regular Heart sounds: normal: S1, S2 Abnormal Heart Sounds: systolic murmur, rub, S3 Gallop - Gastrointestinal General gastrointestinal: normal bowel sounds, soft, no splenomegaly, no tenderness, no umbilical hernia, no ventral hernia - Integumentary Integumentary: normal, normal turgor - Psychiatric Psychiatric: A&O x's 3, appropriate affect, intact judgment & insight - Labs CBC & Chem 7: 01/04/18 11:34 01/04/18 04:41 Labs: Abnormal Lab Results - Last 24 Hours (Table) 01/03/18 01/03/18 01/03/18 Range/Units 11:47 17:37 21:12 WBC (3.8-10.6) k/uL RBC (3.80-5.40) m/uL Hgb (11.4-16.0) gm/dL Hct (34.0-46.0) % RDW (11.5-15.5) % Neutrophils # (1.3-7.7) k/uL Lymphocytes # (1.0-4.8) k/uL ABG pCO2 (35-45) mmHg ABG pO2 (83-108) mmHg ABG O2 Saturation (94-97) % Sodium (137-145) mmol/L Chloride (98-107) mmol/L Carbon Dioxide (22-30) mmol/L BUN (7-17) mg/dL Creatinine (0.52-1.04) mg/dL Glucose (74-99) mg/dL POC Glucose (mg/dL) 130 H 142 H 149 H (75-99) mg/dL Calcium (8.4-10.2) mg/dL 01/04/18 01/04/18 01/04/18 Range/Units 04:41 04:41 06:43 WBC 14.6 H (3.8-10.6) k/uL RBC 2.45 L (3.80-5.40) m/uL Hgb 8.0 L (11.4-16.0) gm/dL Hct 24.2 L (34.0-46.0) % RDW 18.4 H (11.5-15.5) % Neutrophils # 12.9 H (1.3-7.7) k/uL Lymphocytes # 0.9 L (1.0-4.8) k/uL ABG pCO2 (35-45) mmHg ABG pO2 (83-108) mmHg ABG O2 Saturation (94-97) % Sodium 135 L (137-145) mmol/L Chloride 95 L (98-107) mmol/L Carbon Dioxide 34 H (22-30) mmol/L BUN 19 H (7-17) mg/dL Creatinine 0.47 L (0.52-1.04) mg/dL Glucose 129 H (74-99) mg/dL POC Glucose (mg/dL) 116 H (75-99) mg/dL Calcium 8.2 L (8.4-10.2) mg/dL 01/04/18 01/04/18 Range/Units 10:45 10:57 WBC (3.8-10.6) k/uL RBC (3.80-5.40) m/uL Hgb (11.4-16.0) gm/dL Hct (34.0-46.0) % RDW (11.5-15.5) % Neutrophils # (1.3-7.7) k/uL Lymphocytes # (1.0-4.8) k/uL ABG pCO2 32 L (35-45) mmHg ABG pO2 211 H (83-108) mmHg ABG O2 Saturation 100.0 H (94-97) % Sodium (137-145) mmol/L Chloride (98-107) mmol/L Carbon Dioxide (22-30) mmol/L BUN (7-17) mg/dL Creatinine (0.52-1.04) mg/dL Glucose (74-99) mg/dL POC Glucose (mg/dL) 215 H (75-99) mg/dL Calcium (8.4-10.2) mg/dL Assessment and Plan Plan: 1. Status post CABG 3 with LOPES to LAD, SVG to OM, SVG to PDA. Patient has been successfully extubated, continue aggressive pulmonary toileting with nebulized treatment. Continue DuoNeb treatments, Pulmicort, Perforomist. Continue aspirin 81 mg daily, Lipitor 40 mg daily, Plavix 75 mg daily, amiodarone. Long-acting insulin discontinued. NovoLog scale only. 2. CAD post CABG. continue as in #1. 3. Hypertension and hypertensive cardiovascular disease. Continue losartan 75 mg orally once every day, Lopressor 50 mg orally 2 times daily, amlodipine 5 mg daily. 4. Hyperlipidemia. Continue Lipitor 40 mg once every day. 5. Moderate bilateral vascular disease. Continue aspirin and Lipitor for secondary prevention. 6. Mild COPD. Continue aggressive pulmonary toileting with nebulized treatment. 7. 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 Continue with current pain management. 8. Hypothyroidism. Continue patient on Synthroid 25 g orally once every day. 9. Recurrent depression. Continue Wellbutrin 75 mg orally once every day. 10. Syncopal episode with hypotension with acute blood loss anemia occurring after pacer wires were removed. Patient is scheduled for transfusion 2 units packed RBCs. Echocardiogram being done. Monitor hemoglobin closely. Discharge plan: Inpatient rehab at [facility] Impression and plan of care have been directed as dictated by the signing physician. Yecenia Holcomb nurse practitioner acting as scribe for signing physician.
[2018-01-04 17:28] LABS: Glucose,Whole Blood 68 mg/dL (75-99)
--- NOTE | 2018-01-04 17:47 | ECHOF ---
Referral Reason:Assess pericardial effusion. MEASUREMENTS -------- HEIGHT: 157.5 cm WEIGHT: 64.0 kg BP: 88/66 RVIDd: 1.9 cm (< 3.3) IVSd: 1.3 cm (0.6 - 1.1) LVIDd: 3.5 cm (3.9 - 5.3) LVPWd: 1.3 cm (0.6 - 1.1) IVSs: 2.0 cm LVIDs: 2.1 cm LVPWs: 1.7 cm LA Diam: 2.8 cm (2.7 - 3.8) Ao Diam: 3.2 cm (2.0 - 3.7) AV Cusp: 2.3 cm (1.5 - 2.6) MV EXCURSION: 18.351 mm (> 18.000) MV EF SLOPE: 57 mm/s (70 - 150) EPSS: 0.7 cm MV E Lars: 0.66 m/s MV DecT: 298 ms MV A Lars: 0.66 m/s MV E/A Ratio: 0.99 RAP: 5.00 mmHg RVSP: 31.94 mmHg FINDINGS -------- Sinus rhythm. This was a technically adequate study. The left ventricular size is normal. There is mild concentric left ventricular hypertrophy. Overa ll left ventricular systolic function is normal with, an EF between 60 - 65 %. The right ventricle is normal in size. The left atrial size is normal. The right atrium is normal in size. Aortic valve is trileaflet and is mildly thickened. Mild mitral annular calcification present. Mild tricuspid regurgitation present. Right ventricular systolic pressure is normal at < 35 mmHg. The pulmonic valve was not well visualized. The aortic root size is normal. IVC Not well visulized. There is a moderate pericardial effusion is located near the right ventricle. Pleural Effusion with Fibrin. CONCLUSIONS -------- 1. Sinus rhythm. 2. This was a technically adequate study. 3. The left ventricular size is normal. 4. There is mild concentric left ventricular hypertrophy. 5. Overall left ventricular systolic function is normal with, an EF between 60 - 65 %. 6. The right ventricle is normal in size. 7. The left atrial size is normal. 8. The right atrium is normal in size. 9. Aortic valve is trileaflet and is mildly thickened. 10. Mild mitral annular calcification present. 11. Mild tricuspid regurgitation present. 12. Right ventricular systolic pressure is normal at < 35 mmHg. 13. The pulmonic valve was not well visualized. 14. The aortic root size is normal. 15. IVC Not well visulized. 16. There is a moderate pericardial effusion is located near the right ventricle. 17. Pleural Effusion with Fibrin. DIRECTOR OF VITAL STATISTICS: Vicki Dhillon RDCS
[2018-01-04] MEDS ORDERED: DEXTROSE 50%-WATER 50 ML SYRINGE IVP ONE (18:01)
[2018-01-04 18:04] LABS: Glucose,Whole Blood 69 mg/dL (75-99)
[2018-01-04 18:04] LABS: Glucose,Whole Blood 41 mg/dL (75-99)
[2018-01-04 18:04] LABS: Glucose,Whole Blood 43 mg/dL (75-99)
[2018-01-04 18:49] LABS: Glucose,Whole Blood 112 mg/dL (75-99)
[2018-01-04 21:35] LABS: Glucose,Whole Blood 110 mg/dL (75-99)
[2018-01-04] MEDS: methylPREDNISolone SOD SUCCI 40 MG/ML 1 ML VIAL IV SCH (22:15)
[2018-01-04] MEDS: MELATONIN 3 MG TABLET PO SCH (22:15)
[2018-01-04] MEDS: SENNOSIDES-DOCUSATE SODIUM 1 EACH TAB PO SCH (22:16)
[2018-01-05 00:11] LABS: Anisocytosis Slight; HCT 30.3 % (34.0-46.0); MCH 31.3 pg (25.0-35.0); MCHC 33.2 g/dL (31.0-37.0); Macrocytosis Slight; Mean Platelet Volume 6.8; Platelet Count 170 k/uL (150-450); Poikilocytosis Slight; RBC 3.21 m/uL (3.80-5.40); RDW 18.6 % (11.5-15.5); WBC 17.7 k/uL (3.8-10.6)
[2018-01-05 00:15] LABS: HGB 10.1 gm/dL (11.4-16.0); MCV 94.2 fL (80.0-100.0)
[2018-01-05 00:36] LABS: Glucose,Whole Blood 99 mg/dL (75-99)
[2018-01-05 00:36] LABS: Band Neutrophils % 5 %; Lymphocytes # (M) 1.95 k/uL (1.0-4.8); Monocytes # (M) 0.53 k/uL (0-1.0); Neutrophils % (M) 81 %; Nucleated Red Blood Cells 0 /100 WBC (0-0); Total Cells Counted 100
[2018-01-05 00:37] LABS: Polychromasia Present
[2018-01-05] MEDS: HEPARIN SODIUM,PORCINE 5,000 UNIT/ML 1 ML VIAL SQ SCH ×2 (00:38→08:21)
[2018-01-05] MEDS: SODIUM CHLORIDE 0.9% 1,000 ML IV SCH (01:28)
[2018-01-05 01:52] LABS: Prothrombin Time 17.9 sec (9.0-12.0)
[2018-01-05 01:57] LABS: Anion Gap 5 mmol/L; Blood Urea Nitrogen 24 mg/dL (7-17); Calcium 8.1 mg/dL (8.4-10.2); Carbon Dioxide 30 mmol/L (22-30); Chloride 99 mmol/L (98-107); Glucose 109 mg/dL (74-99); Magnesium 1.9 mg/dL (1.6-2.3); Potassium 3.3 mmol/L (3.5-5.1); Sodium 134 mmol/L (137-145)
[2018-01-05 02:38] LABS: Iron Saturation 69.9 (12.00-45.00)
[2018-01-05] MEDS: MAGNESIUM SULFATE-D5W PMX 1 GM in DEXTROSE/WATER 1 100ML.BAG IVPB SCH ×2 (03:50→04:59)
[2018-01-05] MEDS: POTASSIUM BICARBONATE/CIT AC 20 MEQ TABLET.EFF PO SCH ×2 (03:51→03:54)
[2018-01-05] MEDS: LEVOTHYROXINE 25 MCG TAB PO SCH (06:50)
[2018-01-05 06:58] LABS: Glucose,Whole Blood 131 mg/dL (75-99)
[2018-01-05] MEDS ORDERED: DEXTROSE 5% IN WATER 100 ML with AMIODARONE 150 MG IV ONE (07:01)
[2018-01-05] MEDS: INSULIN ASPART 100 UNIT/ML 1 ML 10 ML VIAL SQ SCH ×4 (07:05→20:44)
--- NOTE | 2018-01-05 07:16 | XR ---
EXAMINATION TYPE: XR chest 1V portable DATE OF EXAM: 01/05/2018 HISTORY: Shortness of breath. COMPARISON: 01/04/2018 TECHNIQUE: Single view of the chest is submitted. FINDINGS: Demonstrated are scattered senescent parenchymal change. Stable left basilar opacity which may reflect a combination of atelectasis, infiltrate and/or effusio n. Small right-sided effusion noted. The heart is stable. Hilar and mediastinal structures are within normal limits. Degenerative changes are seen of the dorsal spine. IMPRESSION: 1. Stable left basilar opacity which may reflect a combination of atelectasis, infiltrate and/or eff usion. Small right-sided effusion noted.
[2018-01-05] MEDS: FORMOTEROL FUMARATE 20 MCG/2 ML NEBU INHALATION SCH ×2 (07:30→19:41)
[2018-01-05] MEDS: IPRATROPIUM-ALBUTEROL 3 ML NEB INHALATION SCH ×4 (07:30→19:41)
[2018-01-05] MEDS: BUDESONIDE 0.5 MG/2 ML NEBU INHALATION SCH ×2 (07:30→19:41)
[2018-01-05] MEDS: AMIODARONE 450 MG in DEXTROSE 5% IN WATER 250 ML IV SCH ×4 (07:57→17:11)
[2018-01-05] MEDS: PANTOPRAZOLE 40 MG TABLET PO SCH (08:21)
[2018-01-05] MEDS: CLOPIDOGREL 75 MG TAB PO SCH (08:24)
[2018-01-05] MEDS: buPROPion 75 MG TAB PO SCH (08:24)
[2018-01-05] MEDS: methylPREDNISolone SOD SUCCI 40 MG/ML 1 ML VIAL IV SCH ×2 (08:24→20:45)
[2018-01-05] MEDS: ATORVASTATIN 40 MG TAB PO SCH (08:24)
[2018-01-05] MEDS: ASPIRIN 81 MG PO SCH (08:24)
[2018-01-05] MEDS: NYSTATIN 100,000 UNIT/ML SUSP 500,000 UNIT/5 ML CUP PO SCH ×4 (08:24→22:48)
[2018-01-05 08:26] LABS: Anisocytosis Slight; HCT 28.4 % (34.0-46.0); HGB 9.7 gm/dL (11.4-16.0); MCH 31.5 pg (25.0-35.0); MCHC 34.1 g/dL (31.0-37.0); MCV 92.3 fL (80.0-100.0); Mean Platelet Volume 7.1; Platelet Count 170 k/uL (150-450); Poikilocytosis Slight; RBC 3.08 m/uL (3.80-5.40); RDW 18.1 % (11.5-15.5)
[2018-01-05 08:34] LABS: Anion Gap 5 mmol/L; Blood Urea Nitrogen 23 mg/dL (7-17); Calcium 8.1 mg/dL (8.4-10.2); Carbon Dioxide 31 mmol/L (22-30); Chloride 99 mmol/L (98-107); Glucose 127 mg/dL (74-99); Potassium 3.7 mmol/L (3.5-5.1); Sodium 135 mmol/L (137-145)
[2018-01-05] MEDS: METOPROLOL TARTRATE 50 MG TAB PO SCH ×2 (08:45→20:44)
[2018-01-05] MEDS ORDERED: POTASSIUM CHLORIDE ER 20 MEQ TAB.ER PO SCH ×2 (09:00→11:00)
[2018-01-05 10:00] LABS: Band Neutrophils % 3 %; Lymphocytes # (M) 1.35 k/uL (1.0-4.8); Metamyelocytes # (M) 0.15 k/uL (0); Metamyelocytes % 1 %; Neutrophils % (M) 80 %; Nucleated Red Blood Cells 0 /100 WBC (0-0); Total Cells Counted 200
[2018-01-05 10:01] LABS: Polychromasia Present
[2018-01-05 10:02] LABS: Toxic Granulation Present
[2018-01-05] MEDS ORDERED: PHYTONADIONE ORAL 5 MG/5 ML ORAL.SYRG PO SCH (10:30)
--- NOTE | 2018-01-05 10:39 | P.PN ---
Subjective Progress Note Date: 01/05/18 Principal diagnosis: Triple-vessel coronary artery disease. Preserved left ventricular function. Chronic degenerative arthritis, History of mild chronic obstructive pulmonary disease with preoperative FEV1 70% of predicted, severe peripheral vascular disease, hypertension, remote history of pulmonary embolism, hypothyroid, and previous tobacco dependence. History of fall from standing preoperatively. POD #8 triple coronary artery bypass grafting using the left internal mammary artery to the left anterior descending coronary artery, a reverse greater saphenous vein graft from the aorta to the first obtuse marginal coronary artery , a reverse greater saphenous vein graft from the aorta to the posterior descending coronary artery, endoscopic harvesting of the left greater saphenous vein, intraoperative transesophageal echocardiogram and epi-aortic scanning, intraoperative graft flow measurements using the Njini system. Postoperative acute blood loss anemia, an unexpected outcome. The patient is currently laying in bed. She is in no acute distress. She denies any complaints of pain or shortness of breath. She reports that she does get some increased shortness of breath with activity. She is achieving 500 mL with encouragement on her incentive spirometry. Oxygen saturation are 95 % on 4 L nasal cannula. Yesterday while ambulating up to the bathroom she had a syncopal episode with hypotension. Her hemoglobin yesterday was 5.9 and she was transfused with 2 units of packed red blood cells. This morning her blood work shows a hemoglobin of 9.7. Her daughter Yecenia is at her bedside, she has been updated on her care. Her bedside telemetry this morning is showing atrial fibrillation with a heart rate 92. Amiodarone has been initiated per protocol. Objective - Vital Signs Vital signs: Vital Signs Temp 97.7 F 01/05/18 08:00 Pulse 94 01/05/18 09:00 Resp 19 01/05/18 09:00 BP 109/83 01/05/18 09:00 Pulse Ox 95 01/05/18 09:00 Intake & Output 01/04/18 01/05/18 01/05/18 18:59 06:59 18:59 Intake Total 1920 720 193.3 Output Total 515 1315 75 Balance 1405 -595 118.3 Weight 64.9 kg Intake: IV 100 40 20 0.9 100 40 20 Intake, IV Titration 1000 320 173.3 Amount Amiodarone 450 mg In 33.3 Dextrose 5% in Water 250 ml @ 1 MG/MIN 33.33 mls/ hr IV .Q7H31M [facility] Rx#: [id number] Dextrose 5% in Water 100 100 ml @ 618 mls/hr IV .Q10M ONE with Amiodarone 150 mg Rx#:[id number] Magnesium Sulfate-D5w Pmx 200 1 gm In Dextrose/Water 1 100ml.bag @ 100 mls/hr IVPB Q1H [facility] Rx#: [id number] Sodium Chloride 0.9% 1, 120 40 000 ml @ 20 mls/hr IV . Q24H [facility] Rx#:[id number] Sodium Chloride 0.9% 1, 1000 000 ml @ 999 mls/hr IV . Q1H1M ONE Rx#:[id number] Oral 200 50 Blood Product 620 310 Rc As-1 Unit 0 310 [id number] Rc As-1 Unit 310 [id number] Output: Urine 515 1315 75 Other: Voiding Method Indwelling Catheter Indwelling Catheter Indwelling Catheter ABP, PAP, CO, CI - Last Documented Arterial Blood Pressure 156/117 Pulmonary Artery Pressure 33/17 Cardiac Output 4 Cardiac Index 2.6 - Constitutional General appearance: Present: cooperative, no acute distress - Respiratory Details: Lung sounds essentially diminished throughout. Respirations are symmetrical and nonlabored. Oxygen saturation are 95% on 4 L nasal cannula. She is achieving 500 mL on her incentive spirometry with much encouragement. - Cardiovascular Details: Irregular rhythm with controlled rate. S1 and S2 present, negative for S3, gallop or murmur. Sternum is stable. Bedside telemetry showing atrial fibrillation heart rate 92. Left lower extremity with Mario wrap and placed to her toes to just below the knee, Knee-high AMINTA hose in place to her right lower extremity and sequential compression devices in placed to her bilateral lower extremities. Heart hugger is in place and she is demonstrating appropriate use. - Gastrointestinal Gastrointestinal Comment(s): Abdomen is soft, nontender and nondistended. Active bowel sounds to all 4 abdominal quadrants. No guarding or rigidity. No organomegaly. Tolerating minimal oral intake. - Genitourinary Genitourinary Comment(s): Segovia catheter for accurate I&O. Draining clear yellow urine. 405 mL output in the last 8 hours. - Neurologic Neurologic: Present: CNII-XII intact - Musculoskeletal Musculoskeletal: Present: generalized weakness, strength equal bilaterally - Psychiatric Psychiatric Comment(s): Episodes of confusion. She is alert and oriented [address]. She reports that it is 2014 and cannot state what month it is. Psychiatric: Present: appropriate affect - Allied health notes Allied health notes reviewed: nursing - Labs CBC & Chem 7: 01/05/18 07:59 01/05/18 07:59 Labs: Abnormal Lab Results - Last 24 Hours (Table) 12/22/17 01/04/18 01/04/18 Range/Units 08:56 10:45 10:57 WBC (3.8-10.6) k/uL RBC (3.80-5.40) m/uL Hgb (11.4-16.0) gm/dL Hct (34.0-46.0) % MCV (80.0-100.0) fL RDW (11.5-15.5) % Neutrophils # (Manual) (1.3-7.7) k/uL Metamyelocytes # (Man) (0) k/uL Myelocytes # (Manual) (0) k/uL Nucleated RBCs (0-0) /100 WBC PT (9.0-12.0) sec INR (<1.2) ABG pCO2 32 L (35-45) mmHg ABG pO2 211 H (83-108) mmHg ABG O2 Saturation 100.0 H (94-97) % Sodium (137-145) mmol/L Potassium (3.5-5.1) mmol/L Carbon Dioxide (22-30) mmol/L BUN (7-17) mg/dL Glucose (74-99) mg/dL POC Glucose (mg/dL) 215 H (75-99) mg/dL Calcium (8.4-10.2) mg/dL Magnesium (1.6-2.3) mg/dL TIBC (228-460) ug/dL Iron Saturation (12.00-45.00) Ferritin (10.0-291.0) ng/mL Crossmatch See Detail 01/04/18 01/04/18 01/04/18 Range/Units 11:34 14:18 14:18 WBC 16.6 H (3.8-10.6) k/uL RBC 1.89 L (3.80-5.40) m/uL Hgb 5.9 L* D (11.4-16.0) gm/dL Hct 18.9 L* (34.0-46.0) % MCV 100.2 H (80.0-100.0) fL RDW 18.7 H (11.5-15.5) % Neutrophils # (Manual) 13.10 H (1.3-7.7) k/uL Metamyelocytes # (Man) 0.50 H (0) k/uL Myelocytes # (Manual) 0.33 H (0) k/uL Nucleated RBCs 3 H (0-0) /100 WBC PT (9.0-12.0) sec INR (<1.2) ABG pCO2 (35-45) mmHg ABG pO2 (83-108) mmHg ABG O2 Saturation (94-97) % Sodium (137-145) mmol/L Potassium (3.5-5.1) mmol/L Carbon Dioxide (22-30) mmol/L BUN (7-17) mg/dL Glucose (74-99) mg/dL POC Glucose (mg/dL) (75-99) mg/dL Calcium (8.4-10.2) mg/dL Magnesium (1.6-2.3) mg/dL TIBC 196 L (228-460) ug/dL Iron Saturation 69.90 H (12.00-45.00) Ferritin 1097.1 H (10.0-291.0) ng/mL Crossmatch See Detail 01/04/18 01/04/18 01/04/18 Range/Units 17:14 17:39 17:42 WBC (3.8-10.6) k/uL RBC (3.80-5.40) m/uL Hgb (11.4-16.0) gm/dL Hct (34.0-46.0) % MCV (80.0-100.0) fL RDW (11.5-15.5) % Neutrophils # (Manual) (1.3-7.7) k/uL Metamyelocytes # (Man) (0) k/uL Myelocytes # (Manual) (0) k/uL Nucleated RBCs (0-0) /100 WBC PT (9.0-12.0) sec INR (<1.2) ABG pCO2 (35-45) mmHg ABG pO2 (83-108) mmHg ABG O2 Saturation (94-97) % Sodium (137-145) mmol/L Potassium (3.5-5.1) mmol/L Carbon Dioxide (22-30) mmol/L BUN (7-17) mg/dL Glucose (74-99) mg/dL POC Glucose (mg/dL) 68 L 41 L 43 L (75-99) mg/dL Calcium (8.4-10.2) mg/dL Magnesium (1.6-2.3) mg/dL TIBC (228-460) ug/dL Iron Saturation (12.00-45.00) Ferritin (10.0-291.0) ng/mL Crossmatch 01/04/18 01/04/18 01/04/18 Range/Units 18:00 18:46 21:07 WBC (3.8-10.6) k/uL RBC (3.80-5.40) m/uL Hgb (11.4-16.0) gm/dL Hct (34.0-46.0) % MCV (80.0-100.0) fL RDW (11.5-15.5) % Neutrophils # (Manual) (1.3-7.7) k/uL Metamyelocytes # (Man) (0) k/uL Myelocytes # (Manual) (0) k/uL Nucleated RBCs (0-0) /100 WBC PT (9.0-12.0) sec INR (<1.2) ABG pCO2 (35-45) mmHg ABG pO2 (83-108) mmHg ABG O2 Saturation (94-97) % Sodium (137-145) mmol/L Potassium (3.5-5.1) mmol/L Carbon Dioxide (22-30) mmol/L BUN (7-17) mg/dL Glucose (74-99) mg/dL POC Glucose (mg/dL) 69 L 112 H 110 H (75-99) mg/dL Calcium (8.4-10.2) mg/dL Magnesium (1.6-2.3) mg/dL TIBC (228-460) ug/dL Iron Saturation (12.00-45.00) Ferritin (10.0-291.0) ng/mL Crossmatch 01/04/18 01/05/18 01/05/18 Range/Units 23:20 01:29 01:29 WBC 17.7 H (3.8-10.6) k/uL RBC 3.21 L (3.80-5.40) m/uL Hgb 10.1 L D (11.4-16.0) gm/dL Hct 30.3 L (34.0-46.0) % MCV (80.0-100.0) fL RDW 18.6 H (11.5-15.5) % Neutrophils # (Manual) 15.20 H (1.3-7.7) k/uL Metamyelocytes # (Man) (0) k/uL Myelocytes # (Manual) (0) k/uL Nucleated RBCs (0-0) /100 WBC PT 17.9 H (9.0-12.0) sec INR 2.0 H (<1.2) ABG pCO2 (35-45) mmHg ABG pO2 (83-108) mmHg ABG O2 Saturation (94-97) % Sodium 134 L (137-145) mmol/L Potassium 3.3 L (3.5-5.1) mmol/L Carbon Dioxide (22-30) mmol/L BUN 24 H (7-17) mg/dL Glucose 109 H (74-99) mg/dL POC Glucose (mg/dL) (75-99) mg/dL Calcium 8.1 L (8.4-10.2) mg/dL Magnesium (1.6-2.3) mg/dL TIBC (228-460) ug/dL Iron Saturation (12.00-45.00) Ferritin (10.0-291.0) ng/mL Crossmatch 01/05/18 01/05/18 01/05/18 Range/Units 06:55 07:59 07:59 WBC 15.0 H (3.8-10.6) k/uL RBC 3.08 L (3.80-5.40) m/uL Hgb 9.7 L (11.4-16.0) gm/dL Hct 28.4 L (34.0-46.0) % MCV (80.0-100.0) fL RDW 18.1 H (11.5-15.5) % Neutrophils # (Manual) 12.40 H (1.3-7.7) k/uL Metamyelocytes # (Man) 0.15 H (0) k/uL Myelocytes # (Manual) (0) k/uL Nucleated RBCs (0-0) /100 WBC PT (9.0-12.0) sec INR (<1.2) ABG pCO2 (35-45) mmHg ABG pO2 (83-108) mmHg ABG O2 Saturation (94-97) % Sodium 135 L (137-145) mmol/L Potassium (3.5-5.1) mmol/L Carbon Dioxide 31 H (22-30) mmol/L BUN 23 H (7-17) mg/dL Glucose 127 H (74-99) mg/dL POC Glucose (mg/dL) 131 H (75-99) mg/dL Calcium 8.1 L (8.4-10.2) mg/dL Magnesium (1.6-2.3) mg/dL TIBC (228-460) ug/dL Iron Saturation (12.00-45.00) Ferritin (10.0-291.0) ng/mL Crossmatch 01/05/18 Range/Units 07:59 WBC (3.8-10.6) k/uL RBC (3.80-5.40) m/uL Hgb (11.4-16.0) gm/dL Hct (34.0-46.0) % MCV (80.0-100.0) fL RDW (11.5-15.5) % Neutrophils # (Manual) (1.3-7.7) k/uL Metamyelocytes # (Man) (0) k/uL Myelocytes # (Manual) (0) k/uL Nucleated RBCs (0-0) /100 WBC PT (9.0-12.0) sec INR (<1.2) ABG pCO2 (35-45) mmHg ABG pO2 (83-108) mmHg ABG O2 Saturation (94-97) % Sodium (137-145) mmol/L Potassium (3.5-5.1) mmol/L Carbon Dioxide (22-30) mmol/L BUN (7-17) mg/dL Glucose (74-99) mg/dL POC Glucose (mg/dL) (75-99) mg/dL Calcium (8.4-10.2) mg/dL Magnesium 2.7 H (1.6-2.3) mg/dL TIBC (228-460) ug/dL Iron Saturation (12.00-45.00) Ferritin (10.0-291.0) ng/mL Crossmatch - Imaging and Cardiology Chest x-ray: report reviewed, image reviewed Assessment and Plan (1) History of fall Current Visit: Yes Status: Acute Code(s): Z91.81 - HISTORY OF FALLING SNOMED Code(s): 650100403 (2) CAD (coronary artery disease) Current Visit: Yes Status: Chronic Code(s): I25.10 - ATHSCL HEART DISEASE OF [place] CORONARY ARTERY W/O ANG PCTRS SNOMED Code(s): 81986206 (3) Hypertension Current Visit: Yes Status: Chronic Code(s): I10 - ESSENTIAL (PRIMARY) HYPERTENSION SNOMED Code(s): 44519159 (4) Peripheral vascular disease Current Visit: Yes Status: Chronic Code(s): I73.9 - PERIPHERAL VASCULAR DISEASE, UNSPECIFIED SNOMED Code(s): 587950582 (5) Facial contusion Current Visit: No Status: Acute Code(s): S00.83XA - CONTUSION OF OTHER PART OF HEAD, INITIAL ENCOUNTER SNOMED Code(s): 307826729 (6) History of pulmonary embolism Current Visit: No Status: Resolved Code(s): Z86.711 - PERSONAL HISTORY OF PULMONARY EMBOLISM SNOMED Code(s): 145436625 (7) Tobacco dependence in remission Current Visit: No Status: Resolved Code(s): F17.201 - NICOTINE DEPENDENCE, UNSPECIFIED, IN REMISSION SNOMED Code(s): 620316151 Plan: 1. Continue low-dose aspirin, heparin subcu, Plavix, statin and beta jaida. We will increase her beta jaida as tolerated. 2. Wean O2 as tolerated, encourage incentive spirometry 10 times every hour while awake. 3. Bronchodilators, steroids management per Dr. Child's recommendations. 4. Increase activity as tolerated. Out of bed for all meals. PT/OT/cardiac rehab following. 5. Will monitor daily labs and chest x-rays. 6. Continue to hold Cozaar and Norvasc, for hypotension. 7. Pain control with current medication regimen. 8. GI prophylaxis with Protonix. DVT prophylaxis with subcu heparin, SCDs. 9. Amiodarone 150 mg IV 1 now and initiate amiodarone drip per protocol for atrial fibrillation prophylaxis. 10. Dr. Strauss consulted Dr. Colindres for coagulopathy INR of 2.0 11. More recommendations to follow based on her clinical course. Time with Patient: Greater than 30
--- NOTE | 2018-01-05 11:01 | P.PN ---
Subjective Progress Note Date: 01/05/18 Principal diagnosis: Status post CABG for triple vessel coronary artery disease, postoperative day # 8 This is a 77-year-old female patient, known history of COPD with a preop FEV1 of 70% of predicted, and addition to coronary artery disease, peripheral vascular disease and hypertension, who was experiencing symptoms of exertional dyspnea and angina. She underwent stress test and she was found to have reversible ischemia and based on that the patient underwent a cardiac catheterization and she was found to have extreme calcified right and left coronary arteries, severe triple-vessel disease, severe disease involving the proximal RCA, severe disease involving the ostial circumflex and severe disease involving the ostial left anterior descending coronary artery. Based on this, the patient was referred for bypass surgery and the patient underwent three- vessel bypass with LOPES to LAD. Preop echocardiogram showed a preserved LV function with an ejection fraction of 55-60%. The patient has mild concentric left ventricular hypertrophy. I'm seeing this patient immediately after she arrived to the intensive care unit. She is sedated, comfortable likely distress. She is on a mechanical ventilator. She is an assist-control mode of ventilation, at a rate of 12, tidal volume of 400 with an FiO2 of 100% and PEEP of 5. Chest x-ray showed adequate expansion of both lungs. The patient is to mediastinal and 1 pleural chest tube on the left. Output is minimal at this point. There is no evidence of any air leak. There is no evidence of pneumothorax. The the blood gas showed a pH of 7.31 with a pCO2 of 46 and FiO2 is more than 400. Based on these results, increased respiratory rate up to 18. And I also drop the FiO2 down to 50%. She is producing adequate amount of urine output. She arrived to the ICU from the operating room with 12 mics of levo fed and currently she is off pressors. Cardiac output is at 2.6 with an index of 4.4. Pulmonary artery pressures are nonelevated. On 12/29/2017, the patient is postop day #1. The patient was kept intubated and mechanically ventilated overnight as the patient was having issues with increased output from the chest tubes, anemia, low cardiac output and difficulties with her weaning parameters overnight, the patient was given a total of 2 units of packed RBC 4 hemoglobin of 5.2. Subsequent hemoglobin came up to 6.4 and following that was up down to 5.8. The patient was given an additional 2 units of packed RBC this morning. Doppler from the chest tubes have decline. Overall output has been 800 mL of the mediastinal chest tubes and at times cc from the pleural chest tube as the patient arrived from the operating room. The patient was also given fresh frozen plasma total of 2 units. The patient was kept sedated with Diprivan and she remained calm and comfortable. There were 2 attempts to wean this patient a mechanical ventilator overnight. Her weaning parameters of borderline. Subsequent blood gases showed respiratory acidosis and I did not feel comfortable extubating this patient. Based on this, the patient was kept intubated on mechanical ventilator throughout the night. This morning, following transfusion with 2 units of packed RBC, the patient seemed to hemodynamically stable and she was doing okay. As such she was taken off the sedation and she was given a spelled his breathing trial with a pressure support of 5 and a PEEP of 5. His subsequent blood gases showed a mild component of respiratory acidosis with pCO2 of 50 and pH of 7.30. At that point, the patient was awake and she was following commands. She did not show any signs of respiratory distress. I decide to extubate this patient to a nasal cannula. Postextubation, the patient was followed up very closely. She was noted to bronchospastic and wheezy. Based on that, she was given IV Solu-Medrol. Following that she was placed on a BiPAP at a pressure of 14/5 cm of water with an FiO2 of 50%. The most recent blood gases showed a pH of 7.34 with a pCO2 of 42 and pO2 of 65 and this was done and FiO2 of 40%. The patient was somewhat restless and was getting agitated in bed. Based on that, I put her on Precedex and currently it is at 0.4 g per KG per hour. The chest x-ray from earlier this morning showed small better pleural effusion. There was cardiomegaly. [place] catheter was in place. Rest of the chest were all in place. There was some limited bibasilar consolidation. She is afebrile. She is hemodynamically stable and currently the cardiac index is above 2.. Most recent hemoglobin is at 7.2. She is afebrile. She is on no pressors at this point in time. Cardiac rhythm is sinus. On 12/30/2017 the patient is postop day #2. As noted, and as mentioned earlier , the patient was extubated yesterday and postextubation the patient became bronchospastic and wheezy and she had significant respiratory distress. At that point she was started on BiPAP for respiratory support at a pressure of 14/ 6 cm of water. FiO2 was kept at 50%. The patient had some difficulties initially to tolerate the BiPAP. She was restarted on Precedex and the dose was titrated to control her agitation. With these changes, she did extremely well and overnight she was kept on a BiPAP and in the center she was placed on a combination of bronchodilators steroids which optimize her COPD exacerbation. This morning, the patient was taken off the BiPAP and she was placed on 5 L of oxygen nasal cannula. The chest x-ray from today shows a small right-sided pleural effusion. Chest tubes are all in place and output is diminished compared to yesterday with a stable hemoglobin. Hemodynamically, the patient is on no pressors. Cardiac index is at 1.9. She is producing adequate urine output. Hemoglobin is also stable. Based on all this, I weaned her off the Precedex earlier this morning and subsequently discontinued the BiPAP and currently she sometimes of oxygen by nasal cannula. She is breathing easier. She is less short of breath compared to yesterday. Chest tubes are all in place. Sternum stable clean and intact. The patient has a skin laceration left lower extremity and local wound care is being done and the LIZABETH drain is also in place. She is moving all 4 extremities without any limitation. No nausea. No vomiting. No emesis. No cardiac arrhythmias. She has a hemoglobin of 7.4. White cell count is nonelevated. Blood work and electrodes are all within normal limits earlier this morning. Blood sugars of 118. On 12/31/2017, I'm seeing this patient for a follow-up. Our efforts have succeeded in weaning patient off the BiPAP. Note that yesterday she became short of breath and she had to be placed on BiPAP with low dose Precedex for discomfort and agitation and restlessness. This morning she was weaned off and she is currently on 5 L of oxygen by nasal cannula sitting up on a recliner. Extremities no chest tubes are in place. The left pleural chest tube in the right pleural chest were also in place. The patient has put out approximately 80 mL from the left-sided pleural chest tube and frontal 30 mL over the past 24 hours. He still chest tubes have drain 60 mL over the past 8 hours and 12 mL over the past 24 hours. We're considering removal at least on the chest tube. The patient is pulling approximately 500 mL on the incentive spirometer. The LIZABETH drains in place in the left lower extremity and output has been around 48 and she is over the past 8 hours. There is a skin laceration which is being taken care of by local wound care. Sternum stable clean and intact. Hemodynamically stable. A dose of Lasix 40 mg IV push was given today. The cardiac rhythm is sinus. The patient is less bronchus spastic and wheezy compared to yesterday. She remains on DuoNeb neb treatments around the clock, she is also on a combination with as a night and Perforomist nebulized treatments twice a day and IV Solu Medrol. Hemoglobin from today is 6.9 and we' re holding of any blood transfusions for now. Patient is currently on Levemir 12 units in addition to coverage. On 01/01/2018, I'm seeing this patient for a follow-up. She remains in the intensive care unit. She is currently on oxygen by nasal cannula. Breathing is easier. Less short of breath. Chest tubes will be removed today and output has been minimal for now and the patient's chest x-ray showing small better pleural effusion more so on the right and the patient was given a dose of Lasix. Sternum stable clean and intact. Cardiac rhythm is sinus. The patient is using incentive spirometer and she is pulling approximately 500 mL she is equivalent to yesterday. Note that the left-sided chest tube has drained approximately 105 over the past 8 hours and to 45 over the past 24 hours. As for the mediastinal chest tubes have drain 60 mL over the past 8 hours and 140s over the past 24 hours. The fluid balance is -1.3 L over the past 24 hours. The [place] catheter has been removed. The patient is on bronchodilators. The patient is on systemic steroids. Hemoglobin is stable at 7.9. Normal renal function for now. No altered mentation. She is awake and following commands and answering questions appropriately. Chest x-ray was reviewed. Reevaluated today on 01/02/2018, patient remains on 5 L nasal cannula, O2 saturation is marginal, patient remains to do poorly with incentive spirometry, intermittent episodes of confusion at night was noted. Chest x-ray did show small bilateral pleural effusions, patient remains on diuretics. Labs were all reviewed, renal profile is normal. Hemoglobin is 7.3. Patient continues to have some dyspnea on exertion. Reevaluated today on 01/03/2018, remains on 5 L nasal cannula, patient is doing well, asymptomatic, seems to be more awake and active this morning. She is doing a bit better with incentive spirometry. And definitely no episodes of confusion today. Chest x-ray continues to show small bilateral effusions, and the patient remains on diuretics. Hemoglobin today is 7.7. Electrodes are normal renal profile is relatively normal. Chest x-ray was reviewed. Reevaluated today on 01/04/2018, patient is doing well, she is actually an overflow in the ICU from selective. No major issues overnight, agent remains on few liters nasal cannula, in no distress, asymptomatic, and no confusion or delirium. Labs and chest x-ray were reviewed, minimal left basilar atelectasis and small tiny effusion noted. CBC is relatively normal hemoglobin is holding at 8 electrolytes and renal profile are normal. Reevaluated today on 01/05/2018, patient remains in the ICU, she had an episode yesterday of confusion, associated with syncope and hypotension. Hemoglobin yesterday was 5.9, and the patient received 2 units of packed RBCs. Today the patient seems to be doing better, remains on BiPAP which I plan to change to a nasal cannula, chest x-ray is showing slightly larger left-sided pleural effusion. Patient was also placed on amiodarone 4 atrial fibrillation with rate in the range of low 90s. Overall the patient remains marginal, and I don' t believe the patient isn't ready to be transferred out of the ICU yet. WBC count today is 15.0 hemoglobin is 9.7 and electrolytes and renal profile are normal. Chest x-ray again was reviewed and it showed atelectasis and left- sided pleural effusion. Rather small. Objective - Vital Signs Vital signs: Vital Signs Temp 97.7 F 01/05/18 08:00 Pulse 94 01/05/18 09:00 Resp 19 01/05/18 09:00 BP 109/83 01/05/18 09:00 Pulse Ox 95 01/05/18 09:00 Intake & Output 01/04/18 01/05/18 01/05/18 18:59 06:59 18:59 Intake Total 1920 720 193.3 Output Total 515 1315 75 Balance 1405 -595 118.3 Weight 64.9 kg Intake: IV 100 40 20 0.9 100 40 20 Intake, IV Titration 1000 320 173.3 Amount Amiodarone 450 mg In 33.3 Dextrose 5% in Water 250 ml @ 1 MG/MIN 33.33 mls/ hr IV .Q7H31M [facility] Rx#: [id number] Dextrose 5% in Water 100 100 ml @ 618 mls/hr IV .Q10M ONE with Amiodarone 150 mg Rx#:[id number] Magnesium Sulfate-D5w Pmx 200 1 gm In Dextrose/Water 1 100ml.bag @ 100 mls/hr IVPB Q1H [facility] Rx#: [id number] Sodium Chloride 0.9% 1, 120 40 000 ml @ 20 mls/hr IV . Q24H [facility] Rx#:[id number] Sodium Chloride 0.9% 1, 1000 000 ml @ 999 mls/hr IV . Q1H1M ONE Rx#:[id number] Oral 200 50 Blood Product 620 310 Rc As-1 Unit 0 310 [id number] Rc As-1 Unit 310 [id number] Output: Urine 515 1315 75 Other: Voiding Method Indwelling Catheter Indwelling Catheter Indwelling Catheter ABP, PAP, CO, CI - Last Documented Arterial Blood Pressure 156/117 Pulmonary Artery Pressure 33/17 Cardiac Output 4 Cardiac Index 2.6 - Exam Physical Exam: Revealed a 77-year-old female, in no distress. Head: Atraumatic, normocephalic. HEENT:[Neck is supple.] [No neck masses.] [No thyromegaly.] [No JVD.] No icterus, moist mucous membranes. Chest: [Diminished breath sounds and dullness at the bases bilaterally, no rhonchi and no wheezes. No chest wall tenderness. Symmetrical chest expansion. ] Cardiac Exam: [Normal S1 and S2, no S3 gallop, no murmur.] Abdomen: [Soft, nontender, no megaly, no rebound, no guarding, normal bowel sounds.] Extremities: Both were wrapped with Mario bandage, left LIZABETH drain noted in the left lower extremity with sanguinous drainage noted Neurological Exam: Alert oriented 3, no gross focal neurologic deficits. Psychiatric: Normal mood, affect and mental status examination. Skin: No rashes. - Labs CBC & Chem 7: 01/05/18 07:59 01/05/18 07:59 Labs: Abnormal Lab Results - Last 24 Hours (Table) 12/22/17 01/04/18 01/04/18 Range/Units 08:56 10:57 11:34 WBC 16.6 H (3.8-10.6) k/uL RBC 1.89 L (3.80-5.40) m/uL Hgb 5.9 L* D (11.4-16.0) gm/dL Hct 18.9 L* (34.0-46.0) % MCV 100.2 H (80.0-100.0) fL RDW 18.7 H (11.5-15.5) % Neutrophils # (Manual) 13.10 H (1.3-7.7) k/uL Metamyelocytes # (Man) 0.50 H (0) k/uL Myelocytes # (Manual) 0.33 H (0) k/uL Nucleated RBCs 3 H (0-0) /100 WBC PT (9.0-12.0) sec INR (<1.2) Sodium (137-145) mmol/L Potassium (3.5-5.1) mmol/L Carbon Dioxide (22-30) mmol/L BUN (7-17) mg/dL Glucose (74-99) mg/dL POC Glucose (mg/dL) 215 H (75-99) mg/dL Calcium (8.4-10.2) mg/dL Magnesium (1.6-2.3) mg/dL TIBC (228-460) ug/dL Iron Saturation (12.00-45.00) Ferritin (10.0-291.0) ng/mL Crossmatch See Detail 01/04/18 01/04/18 01/04/18 Range/Units 14:18 14:18 17:14 WBC (3.8-10.6) k/uL RBC (3.80-5.40) m/uL Hgb (11.4-16.0) gm/dL Hct (34.0-46.0) % MCV (80.0-100.0) fL RDW (11.5-15.5) % Neutrophils # (Manual) (1.3-7.7) k/uL Metamyelocytes # (Man) (0) k/uL Myelocytes # (Manual) (0) k/uL Nucleated RBCs (0-0) /100 WBC PT (9.0-12.0) sec INR (<1.2) Sodium (137-145) mmol/L Potassium (3.5-5.1) mmol/L Carbon Dioxide (22-30) mmol/L BUN (7-17) mg/dL Glucose (74-99) mg/dL POC Glucose (mg/dL) 68 L (75-99) mg/dL Calcium (8.4-10.2) mg/dL Magnesium (1.6-2.3) mg/dL TIBC 196 L (228-460) ug/dL Iron Saturation 69.90 H (12.00-45.00) Ferritin 1097.1 H (10.0-291.0) ng/mL Crossmatch See Detail 01/04/18 01/04/18 01/04/18 Range/Units 17:39 17:42 18:00 WBC (3.8-10.6) k/uL RBC (3.80-5.40) m/uL Hgb (11.4-16.0) gm/dL Hct (34.0-46.0) % MCV (80.0-100.0) fL RDW (11.5-15.5) % Neutrophils # (Manual) (1.3-7.7) k/uL Metamyelocytes # (Man) (0) k/uL Myelocytes # (Manual) (0) k/uL Nucleated RBCs (0-0) /100 WBC PT (9.0-12.0) sec INR (<1.2) Sodium (137-145) mmol/L Potassium (3.5-5.1) mmol/L Carbon Dioxide (22-30) mmol/L BUN (7-17) mg/dL Glucose (74-99) mg/dL POC Glucose (mg/dL) 41 L 43 L 69 L (75-99) mg/dL Calcium (8.4-10.2) mg/dL Magnesium (1.6-2.3) mg/dL TIBC (228-460) ug/dL Iron Saturation (12.00-45.00) Ferritin (10.0-291.0) ng/mL Crossmatch 01/04/18 01/04/18 01/04/18 Range/Units 18:46 21:07 23:20 WBC 17.7 H (3.8-10.6) k/uL RBC 3.21 L (3.80-5.40) m/uL Hgb 10.1 L D (11.4-16.0) gm/dL Hct 30.3 L (34.0-46.0) % MCV (80.0-100.0) fL RDW 18.6 H (11.5-15.5) % Neutrophils # (Manual) 15.20 H (1.3-7.7) k/uL Metamyelocytes # (Man) (0) k/uL Myelocytes # (Manual) (0) k/uL Nucleated RBCs (0-0) /100 WBC PT (9.0-12.0) sec INR (<1.2) Sodium (137-145) mmol/L Potassium (3.5-5.1) mmol/L Carbon Dioxide (22-30) mmol/L BUN (7-17) mg/dL Glucose (74-99) mg/dL POC Glucose (mg/dL) 112 H 110 H (75-99) mg/dL Calcium (8.4-10.2) mg/dL Magnesium (1.6-2.3) mg/dL TIBC (228-460) ug/dL Iron Saturation (12.00-45.00) Ferritin (10.0-291.0) ng/mL Crossmatch 01/05/18 01/05/18 01/05/18 Range/Units 01:29 01:29 06:55 WBC (3.8-10.6) k/uL RBC (3.80-5.40) m/uL Hgb (11.4-16.0) gm/dL Hct (34.0-46.0) % MCV (80.0-100.0) fL RDW (11.5-15.5) % Neutrophils # (Manual) (1.3-7.7) k/uL Metamyelocytes # (Man) (0) k/uL Myelocytes # (Manual) (0) k/uL Nucleated RBCs (0-0) /100 WBC PT 17.9 H (9.0-12.0) sec INR 2.0 H (<1.2) Sodium 134 L (137-145) mmol/L Potassium 3.3 L (3.5-5.1) mmol/L Carbon Dioxide (22-30) mmol/L BUN 24 H (7-17) mg/dL Glucose 109 H (74-99) mg/dL POC Glucose (mg/dL) 131 H (75-99) mg/dL Calcium 8.1 L (8.4-10.2) mg/dL Magnesium (1.6-2.3) mg/dL TIBC (228-460) ug/dL Iron Saturation (12.00-45.00) Ferritin (10.0-291.0) ng/mL Crossmatch 01/05/18 01/05/18 01/05/18 Range/Units 07:59 07:59 07:59 WBC 15.0 H (3.8-10.6) k/uL RBC 3.08 L (3.80-5.40) m/uL Hgb 9.7 L (11.4-16.0) gm/dL Hct 28.4 L (34.0-46.0) % MCV (80.0-100.0) fL RDW 18.1 H (11.5-15.5) % Neutrophils # (Manual) 12.40 H (1.3-7.7) k/uL Metamyelocytes # (Man) 0.15 H (0) k/uL Myelocytes # (Manual) (0) k/uL Nucleated RBCs (0-0) /100 WBC PT (9.0-12.0) sec INR (<1.2) Sodium 135 L (137-145) mmol/L Potassium (3.5-5.1) mmol/L Carbon Dioxide 31 H (22-30) mmol/L BUN 23 H (7-17) mg/dL Glucose 127 H (74-99) mg/dL POC Glucose (mg/dL) (75-99) mg/dL Calcium 8.1 L (8.4-10.2) mg/dL Magnesium 2.7 H (1.6-2.3) mg/dL TIBC (228-460) ug/dL Iron Saturation (12.00-45.00) Ferritin (10.0-291.0) ng/mL Crossmatch Assessment and Plan Assessment: Impression: Status post triple-vessel CABG postoperative day #8 Bilateral pleural effusions with postoperative changes, expected post CABG. And areas of atelectasis/expected post CABG. Acute on chronic hypoxic respiratory failure multifactorial secondary to COPD and bilateral pleural effusion. Multiple comorbidities including underlying COPD, chronic back pain, hypothyroidism, hypertension,. Recommendation: Continue present supportive care measures, continue to monitor the patient in the ICU, will switch BiPAP to a nasal cannula, continue amiodarone, gentle diuresis when necessary him a continue bronchodilators. No need for thoracentesis at this point. We'll continue to follow. Time with Patient: Less than 30
[2018-01-05] MEDS: THIAMINE 100 MG TAB PO SCH (12:05)
[2018-01-05] MEDS: ASCORBIC ACID 500 MG TAB PO SCH (12:05)
[2018-01-05] MEDS: FERROUS SULFATE 325 MG TAB PO SCH (12:06)
[2018-01-05 12:21] LABS: Glucose,Whole Blood 138 mg/dL (75-99)
--- NOTE | 2018-01-05 12:21 | PN ---
PROGRESS NOTE DATE OF SERVICE: Ms. Murcia is a 77-year-old female status post coronary artery bypass grafting, who had an episode of unresponsiveness yesterday. She is doing well this morning. She had an episode of atrial fibrillation and was started on IV amiodarone. She had paroxysmal atrial fibrillation at this time. She denies any chest pain. She feels well. She denies any dizziness or palpitations. She denies any nausea. She had an echocardiogram that revealed moderate pericardial effusion with no tamponade. Hemodynamically, she has been stable. She continued be on the IV amiodarone, aspirin, Lipitor 40 mg daily, Plavix 75 mg daily. She received IV Lasix. She is on metoprolol 50 mg twice a day. PHYSICAL EXAMINATION: Blood pressure 114/60 with a heart rate in the 60s. Lungs with mild decrease in breath sounds, no wheezes. Heart irregularly irregular. S1 and S2. No S3. Systolic murmur. No rub. Abdomen soft, nontender. Extremities no significant edema. LAB DATA: Revealed BUN and creatinine 23 and 0.54. Potassium 3.7, magnesium of 2.7, hemoglobin of 9.7. IMPRESSION: 1. Status post coronary artery bypass grafting. 2. Paroxysmal fibrillation. 3. Episode of unresponsiveness, resolved. 4. Pericardial effusion with no evidence of tamponade. 5. Pleural effusion. RECOMMENDATIONS: From the cardiac standpoint, we will continue present therapy. Follow her rhythm. If she continues to be in atrial fibrillation, then anticoagulation needs to be initiated. In the meantime, will continue on the amiodarone and follow her rate. Her repeat echocardiogram has shown her preserved systolic function. MMODL / IJN: [id number] /
--- NOTE | 2018-01-05 13:04 | P.PN ---
Subjective Progress Note Date: 01/05/18 This is a 77-year-old female one of my patient with a previous medical history significant for COPD, coronary artery disease, peripheral vascular disease and hypertension, who was experiencing symptoms of exertional dyspnea and angina. She underwent stress test and she was found to have reversible ischemia and based on that the patient underwent a cardiac catheterization and she was found to have extreme calcified right and left coronary arteries, severe triple-vessel disease, severe disease involving the proximal RCA, severe disease involving the ostial circumflex and severe disease involving the ostial left anterior descending coronary artery. Based on this, the patient was referred for bypass surgery and the patient underwent three- vessel bypass with LOPES to LAD, SVG to OM and SVG to PDA, Preop echocardiogram showed a preserved LV function with an ejection fraction of 55-60%. The patient has mild concentric left ventricular hypertrophy, patient was admitted to intensive care unit she is currently on assist mode ventilation with FiO2 of 40% tidal volume of 400 and PEEP of 5, patient was slightly agitated earlier today in the morning and this is delayed her expiration this will be reevaluated in the next few hours hopefully she'll be extubated her on today. 12/30: Patient has been successfully extubated. She remains in the intensive care unit. Patient did have some anxiety issues and a sitter is at the bedside. She states that she is feeling "droggy" but is quite talkative. She denies having any headache. Positive cough. She denies passing any gas. No bowel movement. Her chest pain is currently controlled. She denies any shortness of breath. Chest tubes, Segovia, right-sided cordis remain in place. Patient has a LIZABETH drain to the left lower extremity. Blood sugars are running in the low 100s and we will plan to transition her over to Levemir and NovoLog scale and discontinue insulin drip. Hemoglobin is 7.4, platelet count 82. patient is status post total of 4 units packed RBCs and 2 fresh frozen plasma, 1 platelet. 01/02: Patient remains in the intensive care unit. Her blood sugars are running 84-108 and Levemir decreased to 8 units and held for today. She is currently on oxygen at 4 L nasal cannula pulse oxing 97%. Over the weekend, Segovia catheter and chest tubes were removed. She did have some confusion during the night with concern for owners. We will add in melatonin for sleep. Patient is scheduled [facility]. 01/03: Patient's blood sugars were running low and we will discontinue the long- acting Levemir and continue only NovoLog scale. Patient is only reaching 500 on incentive spirometry. She is eating okay and has had formed stools. She denies having any chest pain. She does complain of feeling tired and fatigues easily. She apparently was a little agitated during the night and got herself up into a chair alone but no major problems. Patient is now a selective care overflow. 01/04: Patient has been evaluated by Dr. Dorantes with plan for transfer to the [facility] for inpatient rehab. Patient is a 2 person assist and doubt the patient appropriate for inpatient rehab. Patient continues to wait for bed in selective care unit. Solu-Medrol has been changed to Medrol Dosepak. She was cleared for discharge by pulmonary medicine. Pulse ox is 94% on 4 L. White count is 14.6, hemoglobin 8.0, platelet count 195. Unfortunately , after patient had pacer wires removed she became bradycardic and unresponsive. She was given 1 L of IV fluids, she is currently on BiPAP and echocardiogram has been ordered with concern for internal bleeding. Patient is noted to have a hematoma to the left upper inner thigh but no other sources of bleeding noted. The patient had a drop in her hemoglobin 5.9 is scheduled for transfusion today. Patient denies having shortness of breath or chest pain. She does complain of pain in the left lower leg. 01/05: Patient has had INR of 2 since arrival. Daughter is at bedside and states that the patient does not take any anticoagulants however she does drink 3-4 beers daily which she does try to hide from family. Patient has been placed on amiodarone related to atrial fibrillation. She is also had some confusion during the night and a urine specimen was sent. Cozaar and Norvasc are held due to blood pressure. Blood pressures are ranging in the low 100s to the 1 teens. Heart rate is 62. Pulse ox saturation is 95% on 4 L of nasal cannula. Urinary output is 40-60 ML's per hour. Review Of Systems: Constitutional: No fever, no chills, no night sweats. No weight change. + weakness, +fatigue no lethargy. + daytime sleepiness. EENT: No headache. No blurred vision or double vision, no loss of vision. No loss of Hearing, no ringing in the ears, no dizziness. No nasal drainage or congestion. No epistaxis. No sore throat. Lungs: No shortness of breath, +cough, + sputum production. No wheezing. Cardiovascular: No chest pain (controlled), no lower extremity edema. No palpitations. No paroxysmal nocturnal dyspnea. No orthopnea. No lightheadedness or dizziness. + syncopal episodes. Abdominal: No abdominal pain. No nausea, vomiting. No diarrhea. No constipation. No bloody or tarry stools. No loss of appetite. Genitourinary: No dysuria, increased frequency, urgency. No urinary retention. Musculoskeletal: No myalgias. + muscle weakness, no gait dysfunction, no frequent falls. No back pain. No neck pain. Integumentary: No wounds, no lesions. No rash or pruritus. No unusual bruising. No change in hair or nails. Neurologic: No aphasia. No facial droop. No change in mentation. No head injury. No headache. No paralysis. No paresthesia. Psychiatric: No depression. No anxiety. No mood swings. Endocrine: No abnormal blood sugars. No weight change. No excessive sweating or thirst. Objective - Vital Signs Vital signs: Vital Signs Temp 98.2 F 01/05/18 12:00 Pulse 62 01/05/18 12:00 Resp 15 01/05/18 12:00 BP 116/65 01/05/18 12:00 Pulse Ox 95 01/05/18 12:00 Intake & Output 01/04/18 01/05/18 01/05/18 18:59 06:59 18:59 Intake Total 1920 720 766.5 Output Total 515 1315 190 Balance 1405 -595 576.5 Weight 64.9 kg Intake: IV 100 40 20 0.9 100 40 20 Intake, IV Titration 1000 320 386.5 Amount Amiodarone 450 mg In 166.5 Dextrose 5% in Water 250 ml @ 1 MG/MIN 33.33 mls/ hr IV .Q7H31M [facility] Rx#: [id number] Dextrose 5% in Water 100 100 ml @ 618 mls/hr IV .Q10M ONE with Amiodarone 150 mg Rx#:[id number] Magnesium Sulfate-D5w Pmx 200 1 gm In Dextrose/Water 1 100ml.bag @ 100 mls/hr IVPB Q1H [facility] Rx#: [id number] Sodium Chloride 0.9% 1, 120 120 000 ml @ 20 mls/hr IV . Q24H [facility] Rx#:[id number] Sodium Chloride 0.9% 1, 1000 000 ml @ 999 mls/hr IV . Q1H1M ONE Rx#:[id number] Oral 200 50 360 Blood Product 620 310 Rc As-1 Unit 0 310 [id number] Rc As-1 Unit 310 [id number] Output: Urine 515 1315 190 Other: Voiding Method Indwelling Catheter Indwelling Catheter Indwelling Catheter ABP, PAP, CO, CI - Last Documented Arterial Blood Pressure 156/117 Pulmonary Artery Pressure 33/17 Cardiac Output 4 Cardiac Index 2.6 - Constitutional General appearance: Present: average body habitus, no acute distress - EENT Eyes: Present: EOMI, PERRLA ENT: Present: NA/AT, normal oropharynx - Neck Neck: Present: normal ROM. Absent: lymphadenopathy, thyromegaly - Respiratory Respiratory: bilateral: diminished, negative: dullness, rales, rhonchi, wheezing - Cardiovascular Rhythm: irregularly irregular Abnormal Heart Sounds: Present: systolic murmur, rub, S3 Gallop - Gastrointestinal General gastrointestinal: Present: normal bowel sounds, soft. Absent: organomegaly, tenderness, umbilical hernia, ventral hernia - Integumentary Integumentary: Present: normal, normal turgor - Psychiatric Psychiatric: Present: A&O x's 3, appropriate affect, intact judgment & insight - Labs CBC & Chem 7: 01/05/18 07:59 01/05/18 07:59 Labs: Abnormal Lab Results - Last 24 Hours (Table) 12/22/17 01/04/18 01/04/18 Range/Units 08:56 11:34 14:18 WBC 16.6 H (3.8-10.6) k/uL RBC 1.89 L (3.80-5.40) m/uL Hgb 5.9 L* D (11.4-16.0) gm/dL Hct 18.9 L* (34.0-46.0) % MCV 100.2 H (80.0-100.0) fL RDW 18.7 H (11.5-15.5) % Neutrophils # (Manual) 13.10 H (1.3-7.7) k/uL Metamyelocytes # (Man) 0.50 H (0) k/uL Myelocytes # (Manual) 0.33 H (0) k/uL Nucleated RBCs 3 H (0-0) /100 WBC PT (9.0-12.0) sec INR (<1.2) Sodium (137-145) mmol/L Potassium (3.5-5.1) mmol/L Carbon Dioxide (22-30) mmol/L BUN (7-17) mg/dL Glucose (74-99) mg/dL POC Glucose (mg/dL) (75-99) mg/dL Calcium (8.4-10.2) mg/dL Magnesium (1.6-2.3) mg/dL TIBC (228-460) ug/dL Iron Saturation (12.00-45.00) Ferritin (10.0-291.0) ng/mL Crossmatch See Detail See Detail 01/04/18 01/04/18 01/04/18 Range/Units 14:18 17:14 17:39 WBC (3.8-10.6) k/uL RBC (3.80-5.40) m/uL Hgb (11.4-16.0) gm/dL Hct (34.0-46.0) % MCV (80.0-100.0) fL RDW (11.5-15.5) % Neutrophils # (Manual) (1.3-7.7) k/uL Metamyelocytes # (Man) (0) k/uL Myelocytes # (Manual) (0) k/uL Nucleated RBCs (0-0) /100 WBC PT (9.0-12.0) sec INR (<1.2) Sodium (137-145) mmol/L Potassium (3.5-5.1) mmol/L Carbon Dioxide (22-30) mmol/L BUN (7-17) mg/dL Glucose (74-99) mg/dL POC Glucose (mg/dL) 68 L 41 L (75-99) mg/dL Calcium (8.4-10.2) mg/dL Magnesium (1.6-2.3) mg/dL TIBC 196 L (228-460) ug/dL Iron Saturation 69.90 H (12.00-45.00) Ferritin 1097.1 H (10.0-291.0) ng/mL Crossmatch 01/04/18 01/04/18 01/04/18 Range/Units 17:42 18:00 18:46 WBC (3.8-10.6) k/uL RBC (3.80-5.40) m/uL Hgb (11.4-16.0) gm/dL Hct (34.0-46.0) % MCV (80.0-100.0) fL RDW (11.5-15.5) % Neutrophils # (Manual) (1.3-7.7) k/uL Metamyelocytes # (Man) (0) k/uL Myelocytes # (Manual) (0) k/uL Nucleated RBCs (0-0) /100 WBC PT (9.0-12.0) sec INR (<1.2) Sodium (137-145) mmol/L Potassium (3.5-5.1) mmol/L Carbon Dioxide (22-30) mmol/L BUN (7-17) mg/dL Glucose (74-99) mg/dL POC Glucose (mg/dL) 43 L 69 L 112 H (75-99) mg/dL Calcium (8.4-10.2) mg/dL Magnesium (1.6-2.3) mg/dL TIBC (228-460) ug/dL Iron Saturation (12.00-45.00) Ferritin (10.0-291.0) ng/mL Crossmatch 01/04/18 01/04/18 01/05/18 Range/Units 21:07 23:20 01:29 WBC 17.7 H (3.8-10.6) k/uL RBC 3.21 L (3.80-5.40) m/uL Hgb 10.1 L D (11.4-16.0) gm/dL Hct 30.3 L (34.0-46.0) % MCV (80.0-100.0) fL RDW 18.6 H (11.5-15.5) % Neutrophils # (Manual) 15.20 H (1.3-7.7) k/uL Metamyelocytes # (Man) (0) k/uL Myelocytes # (Manual) (0) k/uL Nucleated RBCs (0-0) /100 WBC PT 17.9 H (9.0-12.0) sec INR 2.0 H (<1.2) Sodium (137-145) mmol/L Potassium (3.5-5.1) mmol/L Carbon Dioxide (22-30) mmol/L BUN (7-17) mg/dL Glucose (74-99) mg/dL POC Glucose (mg/dL) 110 H (75-99) mg/dL Calcium (8.4-10.2) mg/dL Magnesium (1.6-2.3) mg/dL TIBC (228-460) ug/dL Iron Saturation (12.00-45.00) Ferritin (10.0-291.0) ng/mL Crossmatch 01/05/18 01/05/18 01/05/18 Range/Units 01:29 06:55 07:59 WBC 15.0 H (3.8-10.6) k/uL RBC 3.08 L (3.80-5.40) m/uL Hgb 9.7 L (11.4-16.0) gm/dL Hct 28.4 L (34.0-46.0) % MCV (80.0-100.0) fL RDW 18.1 H (11.5-15.5) % Neutrophils # (Manual) 12.40 H (1.3-7.7) k/uL Metamyelocytes # (Man) 0.15 H (0) k/uL Myelocytes # (Manual) (0) k/uL Nucleated RBCs (0-0) /100 WBC PT (9.0-12.0) sec INR (<1.2) Sodium 134 L (137-145) mmol/L Potassium 3.3 L (3.5-5.1) mmol/L Carbon Dioxide (22-30) mmol/L BUN 24 H (7-17) mg/dL Glucose 109 H (74-99) mg/dL POC Glucose (mg/dL) 131 H (75-99) mg/dL Calcium 8.1 L (8.4-10.2) mg/dL Magnesium (1.6-2.3) mg/dL TIBC (228-460) ug/dL Iron Saturation (12.00-45.00) Ferritin (10.0-291.0) ng/mL Crossmatch 01/05/18 01/05/18 01/05/18 Range/Units 07:59 07:59 12:07 WBC (3.8-10.6) k/uL RBC (3.80-5.40) m/uL Hgb (11.4-16.0) gm/dL Hct (34.0-46.0) % MCV (80.0-100.0) fL RDW (11.5-15.5) % Neutrophils # (Manual) (1.3-7.7) k/uL Metamyelocytes # (Man) (0) k/uL Myelocytes # (Manual) (0) k/uL Nucleated RBCs (0-0) /100 WBC PT (9.0-12.0) sec INR (<1.2) Sodium 135 L (137-145) mmol/L Potassium (3.5-5.1) mmol/L Carbon Dioxide 31 H (22-30) mmol/L BUN 23 H (7-17) mg/dL Glucose 127 H (74-99) mg/dL POC Glucose (mg/dL) 138 H (75-99) mg/dL Calcium 8.1 L (8.4-10.2) mg/dL Magnesium 2.7 H (1.6-2.3) mg/dL TIBC (228-460) ug/dL Iron Saturation (12.00-45.00) Ferritin (10.0-291.0) ng/mL Crossmatch Assessment and Plan Plan: 1. Status post CABG 3 with LOPES to LAD, SVG to OM, SVG to PDA. Patient has been successfully extubated, continue aggressive pulmonary toileting with nebulized treatment. Continue DuoNeb treatments, Pulmicort, Perforomist. Continue aspirin 81 mg daily, Lipitor 40 mg daily, Plavix 75 mg daily, amiodarone. Long-acting insulin discontinued. NovoLog scale only. 2. CAD post CABG. continue as in #1. 3. Hypertension and hypertensive cardiovascular disease. Continue losartan 75 mg orally once every day, Lopressor 50 mg orally 2 times daily, amlodipine 5 mg daily. 4. Hyperlipidemia. Continue Lipitor 40 mg once every day. 5. Moderate bilateral vascular disease. Continue aspirin and Lipitor for secondary prevention. 6. Mild COPD. Continue aggressive pulmonary toileting with nebulized treatment. 7. 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 Continue with current pain management. 8. Hypothyroidism. Continue patient on Synthroid 25 g orally once every day. 9. Recurrent depression. Continue Wellbutrin 75 mg orally once every day. 10. Syncopal episode with hypotension with acute blood loss anemia occurring after pacer wires were removed. Patient is scheduled for transfusion 2 units packed RBCs. Echocardiogram being done. Monitor hemoglobin closely. Obtain urine culture. 11. Coagulopathy, consult Dr. Colindres, vitamin K by mouth 5 mg every 12 hours for a total of 3 doses, thiamine 100 mg by mouth daily, continue to monitor PT/INR, CMP Discharge plan: Inpatient rehab at [facility] Impression and plan of care have been directed as dictated by the signing physician. Genny Grossman nurse practitioner acting as scribe for signing physician.
[2018-01-05] MEDS ORDERED: PHYTONADIONE 5 MG in SODIUM CHLORIDE 0.9% 50 ML IVPB STA (14:21)
--- NOTE | 2018-01-05 14:39 | P.CONS ---
History of Present Illness - Reason for Consult Consult date: 01/05/18 Coagulopathy - History of Present Illness The patient is a 77-year-old lady, with multiple medical problems. The patient was evaluated for progressive exertional shortness of breath and chest discomfort. She was found to have reversible ischemia on stress test and underwent cardiac catheterization, revealing significant 3-vessel disease. She was therefore admitted for bypass surgery which she underwent on 12/28/17. Post surgery INR was 2.5 and drop to 1.6 the next day. The patient was placed on aspirin and Plavix, and was also on heparin subcu for DVT prophylaxis. She was noted to have extensive bruising, on her lower abdomen as well as extremities. In addition she started to have bleeding from the tube insertion site in her upper abdomen. Hemoglobin dropped into the 5 range on 01/04/18 for which she was transfused 2 units. She therefore had coags repeated today revealing INR of 2. Consult was therefore placed a further evaluation and recommendations. The patient is somewhat poor historian due to which most of her history was obtained from her who is at the bedside. He indicated that the patient had had multiple surgeries before with no bleeding complications. There is no pre-existing history of any kind of "neuropathy, or family history of the same. Over the past one to 2 years, she has tended to bruise easily, but only on her extremities and mostly in relation to trauma. She has had no major joint or soft tissue bruising or mucosal bleeding. She had not been on any anticoagulation coming into the hospital. There is no history of any chronic liver disease but he did indicate that the patient drinks 2-3 beers daily and has been doing so long-term. Review of Systems Constitutional: Reports lethargy, Reports poor appetite, Reports weakness Eyes: denies blurred vision, denies pain Ears: deny: decreased hearing, ear discharge, earache, tinnitus Ears, nose, mouth and throat: Denies headache, Denies sore throat Cardiovascular: Reports as per HPI, Reports chest pain, Reports dyspnea on exertion, Reports irregular heart beat, Reports shortness of breath Respiratory: Reports dyspnea Gastrointestinal: Denies abdominal pain, Denies diarrhea, Denies nausea, Denies vomiting Genitourinary: Denies dysuria, Denies hematuria Menstruation: Reports postmenopausal Musculoskeletal: Reports muscle weakness Integumentary: Reports unusual bruising Neurological: Reports change in mentation (Results), Reports memory loss ( Recall is diminished), Reports weakness Psychiatric: Reports memory loss Endocrine: Reports fatigue Hematologic/Lymphatic: Reports easy bleeding, Reports easy bruising Past Medical History Past Medical History: COPD, Hypertension, Musculoskeletal Disorder, Pulmonary Embolus (PE), Thyroid Disorder Additional Past Medical History / Comment(s): Multivessel coronary artery disease with triple-vessel involvement, COPD, chronic back pain, chronic degenerative arthritis with hip pain, remote history of pulmonary embolism, hypothyroidism. History of Any Multi-Drug Resistant Organisms: None Reported Past Surgical History: Appendectomy, Section, Heart Catheterization, Hysterectomy Additional Past Surgical History / Comment(s): Section X2, bilateral cataract removal with lens implants. Past Anesthesia/Blood Transfusion Reactions: No Reported Reaction Smoking Status: Former smoker Additional Past Alcohol Use History / Comment(s): Patient was a smoker of 1 ppd for many years and quit a few years ago. - Past Family History Brother(s) Family Medical History: Cancer Additional Family Medical History / Comment(s): Patient does not have any brothers. Daughter(s) Additional Family Medical History / Comment(s): Patient has 3 daughters and 2 have from aneursym but patient does not know site. Son(s) Additional Family Medical History / Comment(s): Patient has 3 sons and one has from lung cancer. Father Additional Family Medical History / Comment(s): Father at age 79 and patient does not know cause or medical history. Mother Additional Family Medical History / Comment(s): Mother dies at age 84 from old age. Sister(s) Additional Family Medical History / Comment(s): Patient has one sister wit CAD status post 4 stents. Medications and Allergies Home Medications Medication Instructions Recorded Confirmed Type Albuterol Sulfate [Proair Hfa] 1 - 2 puff INHALATION RT-QID PRN 12/02/17 History Cyclobenzaprine [Flexeril] 10 mg PO DAILY PRN 12/02/17 12/28/17 History Levothyroxine Sodium 25 mcg PO DAILY 12/02/17 12/28/17 History Losartan [Cozaar] 50 mg PO QAM 12/02/17 12/28/17 History Turmeric Root Extract [Turmeric] 500 mg PO DAILY 12/02/17 12/28/17 History buPROPion [Wellbutrin] 75 mg PO DAILY 12/02/17 12/28/17 History Aspirin 81 mg PO DAILY 12/22/17 12/28/17 History Atorvastatin [Lipitor] 80 mg PO DAILY 12/22/17 12/28/17 History Carvedilol [Coreg] 3.125 mg PO BID 12/22/17 12/28/17 History Ipratropium Nebulized [Atrovent 0.5 mg INHALATION RT-BID 12/22/17 12/28/17 History Nebulized] Ipratropium/Albuterol Sulfate 2 puff INHALATION RT-BID 12/22/17 12/28/17 History [Combivent Respimat Inhaler] Mupirocin 2% Oint [Bactroban 2% 1 applic TOPICAL BID 12/27/17 12/28/17 History Oint] Allergies Allergy/AdvReac Type Severity Reaction Status Date / Time No Known Allergies Allergy Verified 12/28/17 17:04 Physical Exam Vitals: Vital Signs Temp Pulse Resp BP Pulse Ox 01/05/18 13:00 68 17 112/62 94 L 01/05/18 12:00 98.2 F 62 15 116/65 95 01/05/18 11:53 62 01/05/18 11:43 63 01/05/18 11:00 63 18 114/64 97 01/05/18 10:00 98 25 H 102/70 95 01/05/18 09:00 94 19 109/83 95 01/05/18 08:00 97.7 F 104 H 18 108/86 95 01/05/18 07:52 108 H 01/05/18 07:41 107 H 01/05/18 07:40 107 H 01/05/18 07:30 107 H 99 01/05/18 07:00 107 H 13 100/64 100 01/05/18 06:00 108 H 18 104/72 89 L 01/05/18 05:00 107 H 18 115/81 100 01/05/18 04:00 98.5 F 112 H 20 114/98 94 L 01/05/18 03:00 100 14 110/76 99 01/05/18 02:00 116 H 16 111/68 99 01/05/18 01:00 111 H 18 90/66 100 01/05/18 00:00 135 H 21 122/80 80 L 01/04/18 23:00 115 H 23 106/96 98 01/04/18 22:05 125 H 25 H 120/84 89 L 01/04/18 22:00 108 H 18 120/84 95 01/04/18 21:00 80 17 124/96 99 01/04/18 20:00 97.7 F 80 18 108/75 98 01/04/18 19:51 84 01/04/18 19:42 83 01/04/18 19:36 83 01/04/18 19:26 79 01/04/18 19:17 97.4 F L 81 15 114/66 97 01/04/18 19:00 114 H 14 111/61 01/04/18 18:47 97 F L 74 18 125/72 100 01/04/18 18:37 96.9 F L 71 18 121/58 99 01/04/18 18:22 96.9 F L 77 16 115/55 95 01/04/18 18:00 72 31 H 117/63 99 01/04/18 17:00 79 30 H 127/65 97 01/04/18 16:54 96.6 F L 77 18 122/72 01/04/18 16:24 96.6 F L 75 16 109/61 97 01/04/18 16:14 96.4 F L 76 18 103/62 100 01/04/18 16:00 96.4 F L 76 23 118/75 97 01/04/18 15:59 74 01/04/18 15:51 75 01/04/18 15:40 21 01/04/18 15:00 75 17 104/56 100 Intake and Output 01/04/18 01/05/18 01/05/18 22:59 06:59 14:59 Intake Total 1030 370 766.5 Output Total 1075 405 190 Balance -45 -35 576.5 Intake: IV 100 20 0.9 100 20 Intake, IV Titration 320 386.5 Amount Amiodarone 450 mg In 166.5 Dextrose 5% in Water 250 ml @ 1 MG/MIN 33.33 mls/ hr IV .Q7H31M [facility] Rx#: [id number] Dextrose 5% in Water 100 100 ml @ 618 mls/hr IV .Q10M ONE with Amiodarone 150 mg Rx#:[id number] Magnesium Sulfate-D5w Pmx 200 1 gm In Dextrose/Water 1 100ml.bag @ 100 mls/hr IVPB Q1H [facility] Rx#: [id number] Sodium Chloride 0.9% 1, 120 120 000 ml @ 20 mls/hr IV . Q24H [facility] Rx#:[id number] Oral 50 360 Blood Product 930 Rc As-1 Unit 310 [id number] Rc As-1 Unit 310 [id number] Output: Urine 1075 405 190 Other: Voiding Method Indwelling Catheter Indwelling Catheter Indwelling Catheter Weight 64.9 kg - Constitutional General appearance: no acute distress - EENT Eyes: EOMI ENT: hearing grossly normal, normal oropharynx - Neck Neck: no lymphadenopathy Thyroid: bilateral: normal size - Respiratory Respiratory: bilateral: CTA - Cardiovascular Rhythm: regular Heart sounds: normal: S1, S2 - Gastrointestinal General gastrointestinal: normal bowel sounds, soft - Integumentary Ongoing oozing noted from the left upper quadrant abdomen tube insertion site. Extensive bruising on lower abdomen (likely subcu heparin injection sites). Extensive bruising bilateral upper thigh areas. Bruising also noted on distal upper extremities - Neurologic Neurologic: CNII-XII intact - Musculoskeletal Musculoskeletal: generalized weakness, strength equal bilaterally - Psychiatric Affect is somewhat slow. Recall is definitely diminished Psychiatric: A&O x's 3 Results CBC & Chem 7: 01/05/18 07:59 01/05/18 07:59 Labs: Abnormal Lab Results - Last 24 Hours (Table) 12/22/17 01/04/18 01/04/18 Range/Units 08:56 14:18 14:18 WBC (3.8-10.6) k/uL RBC (3.80-5.40) m/uL Hgb (11.4-16.0) gm/dL Hct (34.0-46.0) % RDW (11.5-15.5) % Neutrophils # (Manual) (1.3-7.7) k/uL Metamyelocytes # (Man) (0) k/uL PT (9.0-12.0) sec INR (<1.2) Sodium (137-145) mmol/L Potassium (3.5-5.1) mmol/L Carbon Dioxide (22-30) mmol/L BUN (7-17) mg/dL Glucose (74-99) mg/dL POC Glucose (mg/dL) (75-99) mg/dL Calcium (8.4-10.2) mg/dL Magnesium (1.6-2.3) mg/dL TIBC 196 L (228-460) ug/dL Iron Saturation 69.90 H (12.00-45.00) Ferritin 1097.1 H (10.0-291.0) ng/mL Crossmatch See Detail See Detail 01/04/18 01/04/18 01/04/18 Range/Units 17:14 17:39 17:42 WBC (3.8-10.6) k/uL RBC (3.80-5.40) m/uL Hgb (11.4-16.0) gm/dL Hct (34.0-46.0) % RDW (11.5-15.5) % Neutrophils # (Manual) (1.3-7.7) k/uL Metamyelocytes # (Man) (0) k/uL PT (9.0-12.0) sec INR (<1.2) Sodium (137-145) mmol/L Potassium (3.5-5.1) mmol/L Carbon Dioxide (22-30) mmol/L BUN (7-17) mg/dL Glucose (74-99) mg/dL POC Glucose (mg/dL) 68 L 41 L 43 L (75-99) mg/dL Calcium (8.4-10.2) mg/dL Magnesium (1.6-2.3) mg/dL TIBC (228-460) ug/dL Iron Saturation (12.00-45.00) Ferritin (10.0-291.0) ng/mL Crossmatch 01/04/18 01/04/18 01/04/18 Range/Units 18:00 18:46 21:07 WBC (3.8-10.6) k/uL RBC (3.80-5.40) m/uL Hgb (11.4-16.0) gm/dL Hct (34.0-46.0) % RDW (11.5-15.5) % Neutrophils # (Manual) (1.3-7.7) k/uL Metamyelocytes # (Man) (0) k/uL PT (9.0-12.0) sec INR (<1.2) Sodium (137-145) mmol/L Potassium (3.5-5.1) mmol/L Carbon Dioxide (22-30) mmol/L BUN (7-17) mg/dL Glucose (74-99) mg/dL POC Glucose (mg/dL) 69 L 112 H 110 H (75-99) mg/dL Calcium (8.4-10.2) mg/dL Magnesium (1.6-2.3) mg/dL TIBC (228-460) ug/dL Iron Saturation (12.00-45.00) Ferritin (10.0-291.0) ng/mL Crossmatch 01/04/18 01/05/18 01/05/18 Range/Units 23:20 01:29 01:29 WBC 17.7 H (3.8-10.6) k/uL RBC 3.21 L (3.80-5.40) m/uL Hgb 10.1 L D (11.4-16.0) gm/dL Hct 30.3 L (34.0-46.0) % RDW 18.6 H (11.5-15.5) % Neutrophils # (Manual) 15.20 H (1.3-7.7) k/uL Metamyelocytes # (Man) (0) k/uL PT 17.9 H (9.0-12.0) sec INR 2.0 H (<1.2) Sodium 134 L (137-145) mmol/L Potassium 3.3 L (3.5-5.1) mmol/L Carbon Dioxide (22-30) mmol/L BUN 24 H (7-17) mg/dL Glucose 109 H (74-99) mg/dL POC Glucose (mg/dL) (75-99) mg/dL Calcium 8.1 L (8.4-10.2) mg/dL Magnesium (1.6-2.3) mg/dL TIBC (228-460) ug/dL Iron Saturation (12.00-45.00) Ferritin (10.0-291.0) ng/mL Crossmatch 01/05/18 01/05/18 01/05/18 Range/Units 06:55 07:59 07:59 WBC 15.0 H (3.8-10.6) k/uL RBC 3.08 L (3.80-5.40) m/uL Hgb 9.7 L (11.4-16.0) gm/dL Hct 28.4 L (34.0-46.0) % RDW 18.1 H (11.5-15.5) % Neutrophils # (Manual) 12.40 H (1.3-7.7) k/uL Metamyelocytes # (Man) 0.15 H (0) k/uL PT (9.0-12.0) sec INR (<1.2) Sodium 135 L (137-145) mmol/L Potassium (3.5-5.1) mmol/L Carbon Dioxide 31 H (22-30) mmol/L BUN 23 H (7-17) mg/dL Glucose 127 H (74-99) mg/dL POC Glucose (mg/dL) 131 H (75-99) mg/dL Calcium 8.1 L (8.4-10.2) mg/dL Magnesium (1.6-2.3) mg/dL TIBC (228-460) ug/dL Iron Saturation (12.00-45.00) Ferritin (10.0-291.0) ng/mL Crossmatch 01/05/18 01/05/18 Range/Units 07:59 12:07 WBC (3.8-10.6) k/uL RBC (3.80-5.40) m/uL Hgb (11.4-16.0) gm/dL Hct (34.0-46.0) % RDW (11.5-15.5) % Neutrophils # (Manual) (1.3-7.7) k/uL Metamyelocytes # (Man) (0) k/uL PT (9.0-12.0) sec INR (<1.2) Sodium (137-145) mmol/L Potassium (3.5-5.1) mmol/L Carbon Dioxide (22-30) mmol/L BUN (7-17) mg/dL Glucose (74-99) mg/dL POC Glucose (mg/dL) 138 H (75-99) mg/dL Calcium (8.4-10.2) mg/dL Magnesium 2.7 H (1.6-2.3) mg/dL TIBC (228-460) ug/dL Iron Saturation (12.00-45.00) Ferritin (10.0-291.0) ng/mL Crossmatch Comments: Echocardiogram report reviewed Chest x-ray: report reviewed Assessment and Plan (1) Coagulopathy Narrative/Plan: Based on the clinical picture, this appears to be most likely related to liver insufficiency/vitamin K deficiency acutely. Careful history was obtained from the patient's , and does not appear to indicate any evidence of pre- existing coagulopathy. However the patient may have some mild liver insufficiency from chronic moderate alcohol use. This may have been exacerbated by hemodynamic changes related to her recent radiosurgery, as well as ongoing immunoglobulin and statin use. Review of liver enzymes did show persistent elevation over the past 4-5 days. In addition, oral intake has likely been diminished significantly since her admission. - The patient has received by mouth vitamin K. However absorption in this setting is likely to be unreliable. As the patient is having ongoing oozing, as well as bruising and drop in hemoglobin, I will therefore give her an IV dose of 5 mg, and monitor her coags for response. - The patient is actually fully auto anticoagulated. Therefore there is no need for heparin subcu for DVT prophylaxis at this time. This would increase her risk of bleeding, given elevated INR, as well as ongoing use of aspirin and Plavix. Therefore this will be discontinued for now. It can be resumed once INR is normalized. - Repeat coags in the a.m. I will also check fibrinogen. If she fails to normalize with reasonable vitamin K supplementation, then additional workup such as mixing study will be ordered Current Visit: Yes Status: Acute Code(s): D68.9 - COAGULATION DEFECT, UNSPECIFIED SNOMED Code(s): 53024549 (2) Anemia Narrative/Plan: This is due to postoperative state, as well as additional blood loss. Hemoglobin and respond appropriately to blood transfusion. Hopefully blood loss issue will improve with stoppage of heparin subcu, and correction of her coagulopathy. Continue to monitor with supplementation as needed. Current Visit: Yes Status: Acute Code(s): D64.9 - ANEMIA, UNSPECIFIED SNOMED Code(s): 252879566 Plan: Defer to the admitting service and other consultants for management of her multiple other medical problems, and postoperative state. Plan discussed in detail with nursing service
[2018-01-05 15:11] LABS: Appearance,Urine Cloudy (Clear); Bacteria,Urine Occasional /hpf; Bilirubin,Urine Negative (Negative); Blood,Urine Small (Negative); Color,Urine Yellow; Glucose,Urine (UA) Negative (Negative); Hyaline Casts,Urine 1 /lpf (0-2); Ketones,Urine Negative (Negative); Leukocyte Esterase,Urine Large (Negative); Mucus,Urine Moderate /hpf; Nitrite,Urine Negative (Negative); PH, Urine 5.5 (5.0-8.0); Protein,Urine Trace (Negative); RBC,Urine 8 /hpf (0-5); Specific Gravity,Urine 1.021 (1.001-1.035); Squamous Epithelial Cell,Urine <1 /hpf (0-4)
[2018-01-05 16:26] LABS: Anisocytosis Slight; Basophils % (A) 0 %; Eosinophils # (A) 0.1 k/uL (0-0.7); Eosinophils % (A) 1 %; HCT 27.3 % (34.0-46.0); HGB 8.9 gm/dL (11.4-16.0); Lymphocytes # (A) 0.7 k/uL (1.0-4.8); Lymphocytes % (A) 5 %; MCH 30.9 pg (25.0-35.0); MCHC 32.8 g/dL (31.0-37.0); MCV 94.2 fL (80.0-100.0); Macrocytosis Slight; Monocytes # (A) 0.7 k/uL (0-1.0); Monocytes % (A) 4 %; Neutrophils # (A) 14.4 k/uL (1.3-7.7); Neutrophils % (A) 90 %; Platelet Count 155 k/uL (150-450); Poikilocytosis Slight; RDW 18.2 % (11.5-15.5); WBC 16.1 k/uL (3.8-10.6)
[2018-01-05 16:45] LABS: Glucose,Whole Blood 151 mg/dL (75-99)
[2018-01-05 17:29] LABS: Poikilocytosis (M) Present
[2018-01-05] MEDS: ACETAMINOPHEN TAB 325 MG TAB PO PRN (19:37)
[2018-01-05] MEDS: SENNOSIDES-DOCUSATE SODIUM 1 EACH TAB PO SCH (20:44)
[2018-01-05] MEDS: MELATONIN 3 MG TABLET PO SCH (20:44)
[2018-01-05 20:47] LABS: Glucose,Whole Blood 200 mg/dL (75-99)
[2018-01-06 05:19] LABS: Anisocytosis Slight; Basophils % (A) 0 %; Eosinophils % (A) 0 %; HGB 8.8 gm/dL (11.4-16.0); Lymphocytes # (A) 0.5 k/uL (1.0-4.8); Lymphocytes % (A) 3 %; MCH 31.3 pg (25.0-35.0); MCHC 32.5 g/dL (31.0-37.0); MCV 96.4 fL (80.0-100.0); Macrocytosis Slight; Monocytes # (A) 0.7 k/uL (0-1.0); Monocytes % (A) 4 %; Neutrophils % (A) 92 %; Platelet Count 166 k/uL (150-450); RDW 18.6 % (11.5-15.5); WBC 15.2 k/uL (3.8-10.6)
[2018-01-06 05:29] LABS: ALT 54 U/L (9-52); AST 51 U/L (14-36); Alkaline Phosphatase 56 U/L (38-126); Anion Gap 5 mmol/L; Blood Urea Nitrogen 19 mg/dL (7-17); Carbon Dioxide 32 mmol/L (22-30); Chloride 96 mmol/L (98-107); Glucose 133 mg/dL (74-99); Sodium 133 mmol/L (137-145); Total Protein 5.1 g/dL (6.3-8.2)
[2018-01-06 05:30] LABS: INR 1.3 (<1.2); Partial Thromboplastin Time 26.2 sec (22.0-30.0); Prothrombin Time 12.4 sec (9.0-12.0)
[2018-01-06] MEDS: AMIODARONE 450 MG in DEXTROSE 5% IN WATER 250 ML IV SCH ×4 (06:25→07:07)
[2018-01-06 06:44] LABS: Glucose,Whole Blood 132 mg/dL (75-99)
[2018-01-06] MEDS: PANTOPRAZOLE 40 MG TABLET PO SCH (07:06)
[2018-01-06] MEDS: INSULIN ASPART 100 UNIT/ML 1 ML 10 ML VIAL SQ SCH ×4 (07:06→20:47)
[2018-01-06] MEDS: LEVOTHYROXINE 25 MCG TAB PO SCH (07:06)
[2018-01-06] MEDS: SODIUM CHLORIDE 0.9% 1,000 ML IV SCH (07:07)
--- NOTE | 2018-01-06 07:39 | XR ---
EXAMINATION TYPE: XR chest 1V portable DATE OF EXAM: 01/06/2018 COMPARISON: Prior chest x-ray dated 01/05/2018 HISTORY: Status post coronary artery bypass graft TECHNIQUE: Single frontal view of the chest is obtained. FINDINGS: Patient is post median sternotomy, the heart remains enlarged. Bibasilar increased density persists. There is no evident pneumothorax. There are overlying cardiac leads. The aorta is dense. IMPRESSION: Stable findings. Correlate for lower lobe pneumonia versus edema or atelectasis and poss ible associated effusion. Stable cardiomegaly. Follow-up recommended.
[2018-01-06] MEDS: IPRATROPIUM-ALBUTEROL 3 ML NEB INHALATION SCH ×4 (07:47→19:17)
[2018-01-06] MEDS: FORMOTEROL FUMARATE 20 MCG/2 ML NEBU INHALATION SCH ×2 (07:47→19:17)
[2018-01-06] MEDS: BUDESONIDE 0.5 MG/2 ML NEBU INHALATION SCH ×2 (07:47→19:17)
[2018-01-06 07:57] LABS: Magnesium 2.3 mg/dL (1.6-2.3); Phosphorus 3.4 mg/dL (2.5-4.5)
[2018-01-06] MEDS: methylPREDNISolone SOD SUCCI 40 MG/ML 1 ML VIAL IV SCH ×2 (08:51→20:47)
[2018-01-06] MEDS: NYSTATIN 100,000 UNIT/ML SUSP 500,000 UNIT/5 ML CUP PO SCH ×4 (08:52→20:48)
[2018-01-06] MEDS: ATORVASTATIN 40 MG TAB PO SCH (08:52)
[2018-01-06] MEDS: ACETAMINOPHEN TAB 325 MG TAB PO PRN ×2 (08:52→20:48)
[2018-01-06] MEDS: ASPIRIN 81 MG PO SCH (08:52)
[2018-01-06] MEDS: AMIODARONE 200 MG TAB PO SCH ×2 (08:53→20:47)
[2018-01-06] MEDS: buPROPion 75 MG TAB PO SCH (08:53)
[2018-01-06] MEDS: CLOPIDOGREL 75 MG TAB PO SCH (08:53)
[2018-01-06] MEDS ORDERED: LISINOPRIL 2.5 MG TAB PO SCH (09:00)
[2018-01-06] MEDS ORDERED: METOPROLOL TARTRATE 25 MG TAB PO SCH (09:00)
[2018-01-06] MEDS ORDERED: LOSARTAN 25 MG TAB PO SCH (10:15)
[2018-01-06 11:54] LABS: Glucose,Whole Blood 153 mg/dL (75-99)
[2018-01-06] MEDS: FERROUS SULFATE 325 MG TAB PO SCH (11:54)
[2018-01-06] MEDS: THIAMINE 100 MG TAB PO SCH (11:54)
[2018-01-06] MEDS: ASCORBIC ACID 500 MG TAB PO SCH (11:55)
--- NOTE | 2018-01-06 12:31 | PN ---
PROGRESS NOTE Mrs. Murcia is a 77-year-old female who is status post coronary artery bypass grafting. Yesterday she had an episode of atrial fibrillation. She is back in sinus mechanism. She is feeling well this morning. She denies any symptoms of chest pain. She denies any dizziness or palpitation. Her INR was elevated and she was evaluated by Dr. Colindres. She has not had any episode of hypotension. Her echocardiogram revealed moderate pericardial effusion that has been stable. She continues to be at this time on aspirin 81 mg daily, Lipitor 40 mg daily, Plavix 75 mg daily, metoprolol tartrate 50 mg twice a day. PHYSICAL EXAMINATION: Blood pressure running in the 140s to 150s with the heart rate in the 60s. LUNGS: No wheezes or rales with decreased breath sounds at the bases. HEART: Regular rate and rhythm. S1, S2. No S3. No rub. ABDOMEN: Soft, nontender. EXTREMITIES: Mild edema. LAB DATA: BUN and creatinine 19 and 0.47. Potassium 4.0. Hemoglobin of 8.8. IMPRESSION: 1. Status post coronary artery bypass grafting, stable. 2. Paroxysmal atrial fibrillation, remains in sinus mechanism. 3. Coagulopathy reversed. Her INR today is 1.3. 4. Hypertension, remains elevated. RECOMMENDATION: From the cardiac standpoint, I will add an ALEENA inhibitor to optimize her blood pressure. We will continue the rest of her medical regimen. We will follow her renal function, increase her level of activity and depending on her progress, further recommendation will be made. MMODL / LUISN: [id number] /
--- NOTE | 2018-01-06 12:58 | P.PN ---
Subjective Progress Note Date: 01/06/18 Principal diagnosis: Triple-vessel coronary artery disease. Preserved left ventricular function. Chronic degenerative arthritis, History of mild chronic obstructive pulmonary disease with preoperative FEV1 70% of predicted, severe peripheral vascular disease, hypertension, remote history of pulmonary embolism, hypothyroid, and previous tobacco dependence. History of fall from standing preoperatively. POD #9 triple coronary artery bypass grafting using the left internal mammary artery to the left anterior descending coronary artery, a reverse greater saphenous vein graft from the aorta to the first obtuse marginal coronary artery , a reverse greater saphenous vein graft from the aorta to the posterior descending coronary artery, endoscopic harvesting of the left greater saphenous vein, intraoperative transesophageal echocardiogram and epi-aortic scanning, intraoperative graft flow measurements using the [employer] system. Postoperative acute blood loss anemia, an unexpected outcome. Postoperative paroxysmal atrial fibrillation and unexpected but potential outcome of surgery. The patient is currently laying in bed. She is in no acute distress. She denies any complaints of pain or shortness of breath. She is alert and oriented 3. No further episodes of atrial fibrillation, bedside telemetry currently showing sinus bradycardia heart rate 56. She is achieving 500 mL on her incentive spirometry. She reports she feels much improved today. WBC count today is 15.2, she remains afebrile. She remains on amiodarone drip for atrial fibrillation prophylaxis and will be switched over to oral amiodarone today. Objective - Vital Signs Vital signs: Vital Signs Temp 97.8 F 01/06/18 08:00 Pulse 58 L 01/06/18 08:15 Resp 14 01/06/18 08:00 BP 143/68 01/06/18 08:00 Pulse Ox 100 01/06/18 08:00 Intake & Output 01/05/18 01/06/18 01/06/18 18:59 06:59 18:59 Intake Total 1473.1 220 272.129 Output Total 370 565 65 Balance 1103.1 -345 207.129 Weight 64.7 kg Intake: IV 20 0.9 20 Intake, IV Titration 873.1 220 272.129 Amount Amiodarone 450 mg In 483.1 232.129 Dextrose 5% in Water 250 ml @ 1 MG/MIN 33.33 mls/ hr IV .Q7H31M [facility] Rx#: [id number] Dextrose 5% in Water 100 100 ml @ 618 mls/hr IV .Q10M ONE with Amiodarone 150 mg Rx#:[id number] Phytonadione 5 mg In 50 Sodium Chloride 0.9% 50 ml @ 100 mls/hr IVPB ONCE STA Rx#:[id number] Sodium Chloride 0.9% 1, 240 220 40 000 ml @ 20 mls/hr IV . Q24H [facility] Rx#:[id number] Oral 580 Output: Urine 370 565 65 Other: Voiding Method Indwelling Catheter Indwelling Catheter ABP, PAP, CO, CI - Last Documented Arterial Blood Pressure 156/117 Pulmonary Artery Pressure 33/17 Cardiac Output 4 Cardiac Index 2.6 - Constitutional General appearance: Present: cooperative, no acute distress - Respiratory Details: Lungs sounds essentially diminished throughout. Respirations are symmetrical and nonlabored. Oxygen saturation are 99% on 4 L nasal cannula. She is achieving 500 mL on her incentive spirometry with much encouragement. - Cardiovascular Details: Regular rhythm and bradycardic rate. S1 and S2 present, negative for S3, gallop or murmur. Sternum is stable. Bedside telemetry showing sinus bradycardia heart rate 56. Heart hugger's in place and she is demonstrating appropriate use. Knee-high AMINTA hose to her right lower extremity, Mario wrap in place to her left leg from her toe to just below the knee and sequential compression devices in place to bilateral lower extremities. - Gastrointestinal Gastrointestinal Comment(s): Abdomen is soft, nontender and nondistended. Active bowel sounds to all 4 abdominal quadrants. Tolerating minimal oral intake. No guarding or rigidity. No organomegaly. - Genitourinary Genitourinary Comment(s): Segovia catheter for accurate I&O. Draining clear yellow urine. 425 mL output in the last 8 hours. - Neurologic Neurologic: Present: CNII-XII intact - Musculoskeletal Musculoskeletal: Present: gait normal, generalized weakness, strength equal bilaterally - Psychiatric Psychiatric: Present: A&O x's 3, appropriate affect, intact judgment & insight - Allied health notes Allied health notes reviewed: nursing - Labs CBC & Chem 7: 01/06/18 04:39 01/06/18 04:39 Labs: Abnormal Lab Results - Last 24 Hours (Table) 01/05/18 01/05/18 01/05/18 Range/Units 07:59 12:07 16:13 WBC 16.1 H (3.8-10.6) k/uL RBC 2.90 L (3.80-5.40) m/uL Hgb 8.9 L (11.4-16.0) gm/dL Hct 27.3 L (34.0-46.0) % RDW 18.2 H (11.5-15.5) % Neutrophils # 14.4 H (1.3-7.7) k/uL Neutrophils # (Manual) 12.40 H (1.3-7.7) k/uL Lymphocytes # 0.7 L (1.0-4.8) k/uL Metamyelocytes # (Man) 0.15 H (0) k/uL PT (9.0-12.0) sec INR (<1.2) Sodium (137-145) mmol/L Chloride (98-107) mmol/L Carbon Dioxide (22-30) mmol/L BUN (7-17) mg/dL Creatinine (0.52-1.04) mg/dL Glucose (74-99) mg/dL POC Glucose (mg/dL) 138 H (75-99) mg/dL Calcium (8.4-10.2) mg/dL Total Bilirubin (0.2-1.3) mg/dL AST (14-36) U/L ALT (9-52) U/L Total Protein (6.3-8.2) g/dL Albumin (3.5-5.0) g/dL Urine Appearance (Clear) Urine Protein (Negative) Urine Blood (Negative) Ur Leukocyte Esterase (Negative) Urine RBC (0-5) /hpf Urine WBC (0-5) /hpf Urine Bacteria (None) /hpf Urine Mucus (None) /hpf 01/05/18 01/05/18 01/05/18 Range/Units 16:41 20:31 Unknown WBC (3.8-10.6) k/uL RBC (3.80-5.40) m/uL Hgb (11.4-16.0) gm/dL Hct (34.0-46.0) % RDW (11.5-15.5) % Neutrophils # (1.3-7.7) k/uL Neutrophils # (Manual) (1.3-7.7) k/uL Lymphocytes # (1.0-4.8) k/uL Metamyelocytes # (Man) (0) k/uL PT (9.0-12.0) sec INR (<1.2) Sodium (137-145) mmol/L Chloride (98-107) mmol/L Carbon Dioxide (22-30) mmol/L BUN (7-17) mg/dL Creatinine (0.52-1.04) mg/dL Glucose (74-99) mg/dL POC Glucose (mg/dL) 151 H 200 H (75-99) mg/dL Calcium (8.4-10.2) mg/dL Total Bilirubin (0.2-1.3) mg/dL AST (14-36) U/L ALT (9-52) U/L Total Protein (6.3-8.2) g/dL Albumin (3.5-5.0) g/dL Urine Appearance Cloudy H (Clear) Urine Protein Trace H (Negative) Urine Blood Small H (Negative) Ur Leukocyte Esterase Large H (Negative) Urine RBC 8 H (0-5) /hpf Urine WBC 86 H (0-5) /hpf Urine Bacteria Occasional H (None) /hpf Urine Mucus Moderate H (None) /hpf 01/06/18 01/06/18 01/06/18 Range/Units 04:39 04:39 04:39 WBC 15.2 H (3.8-10.6) k/uL RBC 2.80 L (3.80-5.40) m/uL Hgb 8.8 L (11.4-16.0) gm/dL Hct 27.0 L (34.0-46.0) % RDW 18.6 H (11.5-15.5) % Neutrophils # 14.0 H (1.3-7.7) k/uL Neutrophils # (Manual) (1.3-7.7) k/uL Lymphocytes # 0.5 L (1.0-4.8) k/uL Metamyelocytes # (Man) (0) k/uL PT 12.4 H (9.0-12.0) sec INR 1.3 H (<1.2) Sodium 133 L (137-145) mmol/L Chloride 96 L (98-107) mmol/L Carbon Dioxide 32 H (22-30) mmol/L BUN 19 H (7-17) mg/dL Creatinine 0.47 L (0.52-1.04) mg/dL Glucose 133 H (74-99) mg/dL POC Glucose (mg/dL) (75-99) mg/dL Calcium 8.0 L (8.4-10.2) mg/dL Total Bilirubin 2.0 H (0.2-1.3) mg/dL AST 51 H (14-36) U/L ALT 54 H (9-52) U/L Total Protein 5.1 L (6.3-8.2) g/dL Albumin 3.0 L (3.5-5.0) g/dL Urine Appearance (Clear) Urine Protein (Negative) Urine Blood (Negative) Ur Leukocyte Esterase (Negative) Urine RBC (0-5) /hpf Urine WBC (0-5) /hpf Urine Bacteria (None) /hpf Urine Mucus (None) /hpf 01/06/18 Range/Units 06:28 WBC (3.8-10.6) k/uL RBC (3.80-5.40) m/uL Hgb (11.4-16.0) gm/dL Hct (34.0-46.0) % RDW (11.5-15.5) % Neutrophils # (1.3-7.7) k/uL Neutrophils # (Manual) (1.3-7.7) k/uL Lymphocytes # (1.0-4.8) k/uL Metamyelocytes # (Man) (0) k/uL PT (9.0-12.0) sec INR (<1.2) Sodium (137-145) mmol/L Chloride (98-107) mmol/L Carbon Dioxide (22-30) mmol/L BUN (7-17) mg/dL Creatinine (0.52-1.04) mg/dL Glucose (74-99) mg/dL POC Glucose (mg/dL) 132 H (75-99) mg/dL Calcium (8.4-10.2) mg/dL Total Bilirubin (0.2-1.3) mg/dL AST (14-36) U/L ALT (9-52) U/L Total Protein (6.3-8.2) g/dL Albumin (3.5-5.0) g/dL Urine Appearance (Clear) Urine Protein (Negative) Urine Blood (Negative) Ur Leukocyte Esterase (Negative) Urine RBC (0-5) /hpf Urine WBC (0-5) /hpf Urine Bacteria (None) /hpf Urine Mucus (None) /hpf Microbiology - Last 24 Hours (Table) 01/05/18 Unknown Urine Culture - Preliminary Urine,Voided - Imaging and Cardiology Chest x-ray: report reviewed, image reviewed Assessment and Plan (1) History of fall Current Visit: Yes Status: Acute Code(s): Z91.81 - HISTORY OF FALLING SNOMED Code(s): 205698023 (2) CAD (coronary artery disease) Current Visit: Yes Status: Chronic Code(s): I25.10 - ATHSCL HEART DISEASE OF [place] CORONARY ARTERY W/O ANG PCTRS SNOMED Code(s): 26154137 (3) Hypertension Current Visit: Yes Status: Chronic Code(s): I10 - ESSENTIAL (PRIMARY) HYPERTENSION SNOMED Code(s): 83109873 (4) Peripheral vascular disease Current Visit: Yes Status: Chronic Code(s): I73.9 - PERIPHERAL VASCULAR DISEASE, UNSPECIFIED SNOMED Code(s): 955117492 (5) Facial contusion Current Visit: No Status: Inactive Code(s): S00.83XA - CONTUSION OF OTHER PART OF HEAD, INITIAL ENCOUNTER SNOMED Code(s): 198177633 (6) History of pulmonary embolism Current Visit: No Status: Resolved Code(s): Z86.711 - PERSONAL HISTORY OF PULMONARY EMBOLISM SNOMED Code(s): 398360538 (7) Tobacco dependence in remission Current Visit: No Status: Resolved Code(s): F17.201 - NICOTINE DEPENDENCE, UNSPECIFIED, IN REMISSION SNOMED Code(s): 930530182 Plan: 1. Continue low-dose aspirin, Plavix, statin and beta jaida. We decreased her metoprolol tartrate 25 mg by mouth 3 times a day. 2. Wean O2 as tolerated, encourage incentive spirometry 10 times every hour while awake. 3. Bronchodilators, steroids management per Dr. Child's recommendations. 4. Increase activity as tolerated. Out of bed for all meals. PT/OT/cardiac rehab following. 5. Will monitor daily labs and chest x-rays. 6. We will start Cozaar 25 mg by mouth daily. 7. Pain control with current medication regimen. 8. GI prophylaxis with Protonix. DVT prophylaxis with SCDs. 9. Amiodarone 400 mg by mouth twice a day and discontinue amiodarone drip for atrial fibrillation prophylaxis. 10. Discontinue Segovia catheter 11. Heparin subcu reinitiated for DVT prophylaxis as her INR is 1.3 today. 12. More recommendations to follow based on her clinical course. Transfer to [address] [id number] cardiac stepdown today. Time with Patient: Greater than 30
--- NOTE | 2018-01-06 13:05 | P.PN ---
Subjective Progress Note Date: 01/06/18 Principal diagnosis: Status post CABG for triple vessel coronary artery disease, postoperative day # 9 This is a 77-year-old female patient, known history of COPD with a preop FEV1 of 70% of predicted, and addition to coronary artery disease, peripheral vascular disease and hypertension, who was experiencing symptoms of exertional dyspnea and angina. She underwent stress test and she was found to have reversible ischemia and based on that the patient underwent a cardiac catheterization and she was found to have extreme calcified right and left coronary arteries, severe triple-vessel disease, severe disease involving the proximal RCA, severe disease involving the ostial circumflex and severe disease involving the ostial left anterior descending coronary artery. Based on this, the patient was referred for bypass surgery and the patient underwent three- vessel bypass with LOPES to LAD. Preop echocardiogram showed a preserved LV function with an ejection fraction of 55-60%. The patient has mild concentric left ventricular hypertrophy. I'm seeing this patient immediately after she arrived to the intensive care unit. She is sedated, comfortable likely distress. She is on a mechanical ventilator. She is an assist-control mode of ventilation, at a rate of 12, tidal volume of 400 with an FiO2 of 100% and PEEP of 5. Chest x-ray showed adequate expansion of both lungs. The patient is to mediastinal and 1 pleural chest tube on the left. Output is minimal at this point. There is no evidence of any air leak. There is no evidence of pneumothorax. The the blood gas showed a pH of 7.31 with a pCO2 of 46 and FiO2 is more than 400. Based on these results, increased respiratory rate up to 18. And I also drop the FiO2 down to 50%. She is producing adequate amount of urine output. She arrived to the ICU from the operating room with 12 mics of levo fed and currently she is off pressors. Cardiac output is at 2.6 with an index of 4.4. Pulmonary artery pressures are nonelevated. On 12/29/2017, the patient is postop day #1. The patient was kept intubated and mechanically ventilated overnight as the patient was having issues with increased output from the chest tubes, anemia, low cardiac output and difficulties with her weaning parameters overnight, the patient was given a total of 2 units of packed RBC 4 hemoglobin of 5.2. Subsequent hemoglobin came up to 6.4 and following that was up down to 5.8. The patient was given an additional 2 units of packed RBC this morning. Doppler from the chest tubes have decline. Overall output has been 800 mL of the mediastinal chest tubes and at times cc from the pleural chest tube as the patient arrived from the operating room. The patient was also given fresh frozen plasma total of 2 units. The patient was kept sedated with Diprivan and she remained calm and comfortable. There were 2 attempts to wean this patient a mechanical ventilator overnight. Her weaning parameters of borderline. Subsequent blood gases showed respiratory acidosis and I did not feel comfortable extubating this patient. Based on this, the patient was kept intubated on mechanical ventilator throughout the night. This morning, following transfusion with 2 units of packed RBC, the patient seemed to hemodynamically stable and she was doing okay. As such she was taken off the sedation and she was given a spelled his breathing trial with a pressure support of 5 and a PEEP of 5. His subsequent blood gases showed a mild component of respiratory acidosis with pCO2 of 50 and pH of 7.30. At that point, the patient was awake and she was following commands. She did not show any signs of respiratory distress. I decide to extubate this patient to a nasal cannula. Postextubation, the patient was followed up very closely. She was noted to bronchospastic and wheezy. Based on that, she was given IV Solu-Medrol. Following that she was placed on a BiPAP at a pressure of 14/5 cm of water with an FiO2 of 50%. The most recent blood gases showed a pH of 7.34 with a pCO2 of 42 and pO2 of 65 and this was done and FiO2 of 40%. The patient was somewhat restless and was getting agitated in bed. Based on that, I put her on Precedex and currently it is at 0.4 g per KG per hour. The chest x-ray from earlier this morning showed small better pleural effusion. There was cardiomegaly. [address] catheter was in place. Rest of the chest were all in place. There was some limited bibasilar consolidation. She is afebrile. She is hemodynamically stable and currently the cardiac index is above 2.. Most recent hemoglobin is at 7.2. She is afebrile. She is on no pressors at this point in time. Cardiac rhythm is sinus. On 12/30/2017 the patient is postop day #2. As noted, and as mentioned earlier , the patient was extubated yesterday and postextubation the patient became bronchospastic and wheezy and she had significant respiratory distress. At that point she was started on BiPAP for respiratory support at a pressure of 14/ 6 cm of water. FiO2 was kept at 50%. The patient had some difficulties initially to tolerate the BiPAP. She was restarted on Precedex and the dose was titrated to control her agitation. With these changes, she did extremely well and overnight she was kept on a BiPAP and in the center she was placed on a combination of bronchodilators steroids which optimize her COPD exacerbation. This morning, the patient was taken off the BiPAP and she was placed on 5 L of oxygen nasal cannula. The chest x-ray from today shows a small right-sided pleural effusion. Chest tubes are all in place and output is diminished compared to yesterday with a stable hemoglobin. Hemodynamically, the patient is on no pressors. Cardiac index is at 1.9. She is producing adequate urine output. Hemoglobin is also stable. Based on all this, I weaned her off the Precedex earlier this morning and subsequently discontinued the BiPAP and currently she sometimes of oxygen by nasal cannula. She is breathing easier. She is less short of breath compared to yesterday. Chest tubes are all in place. Sternum stable clean and intact. The patient has a skin laceration left lower extremity and local wound care is being done and the LIZABETH drain is also in place. She is moving all 4 extremities without any limitation. No nausea. No vomiting. No emesis. No cardiac arrhythmias. She has a hemoglobin of 7.4. White cell count is nonelevated. Blood work and electrodes are all within normal limits earlier this morning. Blood sugars of 118. On 12/31/2017, I'm seeing this patient for a follow-up. Our efforts have succeeded in weaning patient off the BiPAP. Note that yesterday she became short of breath and she had to be placed on BiPAP with low dose Precedex for discomfort and agitation and restlessness. This morning she was weaned off and she is currently on 5 L of oxygen by nasal cannula sitting up on a recliner. Extremities no chest tubes are in place. The left pleural chest tube in the right pleural chest were also in place. The patient has put out approximately 80 mL from the left-sided pleural chest tube and frontal 30 mL over the past 24 hours. He still chest tubes have drain 60 mL over the past 8 hours and 12 mL over the past 24 hours. We're considering removal at least on the chest tube. The patient is pulling approximately 500 mL on the incentive spirometer. The LIZABETH drains in place in the left lower extremity and output has been around 48 and she is over the past 8 hours. There is a skin laceration which is being taken care of by local wound care. Sternum stable clean and intact. Hemodynamically stable. A dose of Lasix 40 mg IV push was given today. The cardiac rhythm is sinus. The patient is less bronchus spastic and wheezy compared to yesterday. She remains on DuoNeb neb treatments around the clock, she is also on a combination with as a night and Perforomist nebulized treatments twice a day and IV Solu Medrol. Hemoglobin from today is 6.9 and we' re holding of any blood transfusions for now. Patient is currently on Levemir 12 units in addition to coverage. On 01/01/2018, I'm seeing this patient for a follow-up. She remains in the intensive care unit. She is currently on oxygen by nasal cannula. Breathing is easier. Less short of breath. Chest tubes will be removed today and output has been minimal for now and the patient's chest x-ray showing small better pleural effusion more so on the right and the patient was given a dose of Lasix. Sternum stable clean and intact. Cardiac rhythm is sinus. The patient is using incentive spirometer and she is pulling approximately 500 mL she is equivalent to yesterday. Note that the left-sided chest tube has drained approximately 105 over the past 8 hours and to 45 over the past 24 hours. As for the mediastinal chest tubes have drain 60 mL over the past 8 hours and 140s over the past 24 hours. The fluid balance is -1.3 L over the past 24 hours. The [address] catheter has been removed. The patient is on bronchodilators. The patient is on systemic steroids. Hemoglobin is stable at 7.9. Normal renal function for now. No altered mentation. She is awake and following commands and answering questions appropriately. Chest x-ray was reviewed. Reevaluated today on 01/02/2018, patient remains on 5 L nasal cannula, O2 saturation is marginal, patient remains to do poorly with incentive spirometry, intermittent episodes of confusion at night was noted. Chest x-ray did show small bilateral pleural effusions, patient remains on diuretics. Labs were all reviewed, renal profile is normal. Hemoglobin is 7.3. Patient continues to have some dyspnea on exertion. Reevaluated today on 01/03/2018, remains on 5 L nasal cannula, patient is doing well, asymptomatic, seems to be more awake and active this morning. She is doing a bit better with incentive spirometry. And definitely no episodes of confusion today. Chest x-ray continues to show small bilateral effusions, and the patient remains on diuretics. Hemoglobin today is 7.7. Electrodes are normal renal profile is relatively normal. Chest x-ray was reviewed. Reevaluated today on 01/04/2018, patient is doing well, she is actually an overflow in the ICU from selective. No major issues overnight, agent remains on few liters nasal cannula, in no distress, asymptomatic, and no confusion or delirium. Labs and chest x-ray were reviewed, minimal left basilar atelectasis and small tiny effusion noted. CBC is relatively normal hemoglobin is holding at 8 electrolytes and renal profile are normal. Reevaluated today on 01/05/2018, patient remains in the ICU, she had an episode yesterday of confusion, associated with syncope and hypotension. Hemoglobin yesterday was 5.9, and the patient received 2 units of packed RBCs. Today the patient seems to be doing better, remains on BiPAP which I plan to change to a nasal cannula, chest x-ray is showing slightly larger left-sided pleural effusion. Patient was also placed on amiodarone 4 atrial fibrillation with rate in the range of low 90s. Overall the patient remains marginal, and I don' t believe the patient isn't ready to be transferred out of the ICU yet. WBC count today is 15.0 hemoglobin is 9.7 and electrolytes and renal profile are normal. Chest x-ray again was reviewed and it showed atelectasis and left- sided pleural effusion. Rather small. Reevaluated today on 01/06/2018, patient is doing well, on nasal cannula, asymptomatic, no cough no wheezing no shortness of breath, and mentally he seems to be more appropriate, no confusion today whatsoever. She is alert oriented 3, no further episodes of cardiac arrhythmia, she is compliant with incentive spirometry, and her amiodarone drip is being addressed by cardiology. Her bruising and anemia is being addressed by hematology. Hemoglobin today is 8.8. Electrolytes are normal renal profile is normal. Liver enzymes are minimally elevated. Bilirubin is 2.0. Chest x-ray continues to show small left pleural effusion and atelectasis, not large enough to consider thoracentesis on the left side. Objective - Vital Signs Vital signs: Vital Signs Temp 97.8 F 01/06/18 08:00 Pulse 64 01/06/18 12:01 Resp 16 01/06/18 10:00 BP 156/69 01/06/18 10:00 Pulse Ox 94 L 01/06/18 10:00 Intake & Output 01/05/18 01/06/18 01/06/18 18:59 06:59 18:59 Intake Total 1473.1 220 392.129 Output Total 370 565 95 Balance 1103.1 -345 297.129 Weight 64.7 kg 64.7 kg Intake: IV 20 0.9 20 Intake, IV Titration 873.1 220 272.129 Amount Amiodarone 450 mg In 483.1 232.129 Dextrose 5% in Water 250 ml @ 1 MG/MIN 33.33 mls/ hr IV .Q7H31M [facility] Rx#: [id number] Dextrose 5% in Water 100 100 ml @ 618 mls/hr IV .Q10M ONE with Amiodarone 150 mg Rx#:[id number] Phytonadione 5 mg In 50 Sodium Chloride 0.9% 50 ml @ 100 mls/hr IVPB ONCE STA Rx#:[id number] Sodium Chloride 0.9% 1, 240 220 40 000 ml @ 20 mls/hr IV . Q24H [facility] Rx#:[id number] Oral 580 120 Output: Urine 370 565 95 Other: Voiding Method Indwelling Catheter Indwelling Catheter Indwelling Catheter ABP, PAP, CO, CI - Last Documented Arterial Blood Pressure 156/117 Pulmonary Artery Pressure 33/17 Cardiac Output 4 Cardiac Index 2.6 - Exam Physical Exam: Revealed a 77-year-old female, in no distress. Head: Atraumatic, normocephalic. HEENT:[Neck is supple.] [No neck masses.] [No thyromegaly.] [No JVD.] No icterus, moist mucous membranes. Chest: [Diminished breath sounds and dullness at the bases bilaterally, no rhonchi and no wheezes. No chest wall tenderness. Symmetrical chest expansion. ] Cardiac Exam: [Normal S1 and S2, no S3 gallop, no murmur.] Abdomen: [Soft, nontender, no megaly, no rebound, no guarding, normal bowel sounds.] Extremities: Both were wrapped with Mario bandage, left LIZABETH drain noted in the left lower extremity with sanguinous drainage noted Neurological Exam: Alert oriented 3, no gross focal neurologic deficits. Psychiatric: Normal mood, affect and mental status examination. Skin: Scattered areas of ecchymosis and bruising bilaterally. - Labs CBC & Chem 7: 01/06/18 04:39 01/06/18 04:39 Labs: Abnormal Lab Results - Last 24 Hours (Table) 01/05/18 01/05/18 01/05/18 Range/Units 16:13 16:41 20:31 WBC 16.1 H (3.8-10.6) k/uL RBC 2.90 L (3.80-5.40) m/uL Hgb 8.9 L (11.4-16.0) gm/dL Hct 27.3 L (34.0-46.0) % RDW 18.2 H (11.5-15.5) % Neutrophils # 14.4 H (1.3-7.7) k/uL Lymphocytes # 0.7 L (1.0-4.8) k/uL PT (9.0-12.0) sec INR (<1.2) Sodium (137-145) mmol/L Chloride (98-107) mmol/L Carbon Dioxide (22-30) mmol/L BUN (7-17) mg/dL Creatinine (0.52-1.04) mg/dL Glucose (74-99) mg/dL POC Glucose (mg/dL) 151 H 200 H (75-99) mg/dL Calcium (8.4-10.2) mg/dL Total Bilirubin (0.2-1.3) mg/dL AST (14-36) U/L ALT (9-52) U/L Total Protein (6.3-8.2) g/dL Albumin (3.5-5.0) g/dL Urine Appearance (Clear) Urine Protein (Negative) Urine Blood (Negative) Ur Leukocyte Esterase (Negative) Urine RBC (0-5) /hpf Urine WBC (0-5) /hpf Urine Bacteria (None) /hpf Urine Mucus (None) /hpf 01/05/18 01/06/18 01/06/18 Range/Units Unknown 04:39 04:39 WBC 15.2 H (3.8-10.6) k/uL RBC 2.80 L (3.80-5.40) m/uL Hgb 8.8 L (11.4-16.0) gm/dL Hct 27.0 L (34.0-46.0) % RDW 18.6 H (11.5-15.5) % Neutrophils # 14.0 H (1.3-7.7) k/uL Lymphocytes # 0.5 L (1.0-4.8) k/uL PT (9.0-12.0) sec INR (<1.2) Sodium 133 L (137-145) mmol/L Chloride 96 L (98-107) mmol/L Carbon Dioxide 32 H (22-30) mmol/L BUN 19 H (7-17) mg/dL Creatinine 0.47 L (0.52-1.04) mg/dL Glucose 133 H (74-99) mg/dL POC Glucose (mg/dL) (75-99) mg/dL Calcium 8.0 L (8.4-10.2) mg/dL Total Bilirubin 2.0 H (0.2-1.3) mg/dL AST 51 H (14-36) U/L ALT 54 H (9-52) U/L Total Protein 5.1 L (6.3-8.2) g/dL Albumin 3.0 L (3.5-5.0) g/dL Urine Appearance Cloudy H (Clear) Urine Protein Trace H (Negative) Urine Blood Small H (Negative) Ur Leukocyte Esterase Large H (Negative) Urine RBC 8 H (0-5) /hpf Urine WBC 86 H (0-5) /hpf Urine Bacteria Occasional H (None) /hpf Urine Mucus Moderate H (None) /hpf 01/06/18 01/06/18 01/06/18 Range/Units 04:39 06:28 11:52 WBC (3.8-10.6) k/uL RBC (3.80-5.40) m/uL Hgb (11.4-16.0) gm/dL Hct (34.0-46.0) % RDW (11.5-15.5) % Neutrophils # (1.3-7.7) k/uL Lymphocytes # (1.0-4.8) k/uL PT 12.4 H (9.0-12.0) sec INR 1.3 H (<1.2) Sodium (137-145) mmol/L Chloride (98-107) mmol/L Carbon Dioxide (22-30) mmol/L BUN (7-17) mg/dL Creatinine (0.52-1.04) mg/dL Glucose (74-99) mg/dL POC Glucose (mg/dL) 132 H 153 H (75-99) mg/dL Calcium (8.4-10.2) mg/dL Total Bilirubin (0.2-1.3) mg/dL AST (14-36) U/L ALT (9-52) U/L Total Protein (6.3-8.2) g/dL Albumin (3.5-5.0) g/dL Urine Appearance (Clear) Urine Protein (Negative) Urine Blood (Negative) Ur Leukocyte Esterase (Negative) Urine RBC (0-5) /hpf Urine WBC (0-5) /hpf Urine Bacteria (None) /hpf Urine Mucus (None) /hpf Microbiology - Last 24 Hours (Table) 01/05/18 Unknown Urine Culture - Preliminary Urine,Voided Assessment and Plan Assessment: Impression: Status post triple-vessel CABG postoperative day #9 Bilateral pleural effusions with postoperative changes, expected post CABG. And areas of atelectasis/expected post CABG. Acute on chronic hypoxic respiratory failure multifactorial secondary to COPD and bilateral pleural effusion. Multiple comorbidities including underlying COPD, chronic back pain, hypothyroidism, hypertension,. New onset atrial fibrillation, on amiodarone, and her anticoagulation therapy is being addressed by hematology on the case. Recommendation: Continue present supportive care measures, consider transferring the patient out of the ICU to a monitor bed on selective, continue incentive spirometry, continue ambulation, and possibly rehab referral early next week. Time with Patient: Less than 30
--- NOTE | 2018-01-06 14:36 | US ---
EXAMINATION TYPE: US chest DATE OF EXAM: 01/06/2018 COMPARISON: CXR dated 01/06/2018 CLINICAL HISTORY: Ultrasound left chest markings, pleural effusion. Pleural effusion TECHNIQUE: Targeted ultrasound of the posterior lower left hemithorax EXAM MEASUREMENTS: Left Pleural Effusion pocket size: 4.9 cm Left skin surface to fluid distance: 3.3 cm Left side marked for possible thoracentesis outside the dept. Pulmonologists are able to review the images in the patient?s EMR. IMPRESSIONS: Left pleural effusion
--- NOTE | 2018-01-06 16:32 | P.PN ---
Subjective Progress Note Date: 01/06/18 This is a 77-year-old female one of my patient with a previous medical history significant for COPD, coronary artery disease, peripheral vascular disease and hypertension, who was experiencing symptoms of exertional dyspnea and angina. She underwent stress test and she was found to have reversible ischemia and based on that the patient underwent a cardiac catheterization and she was found to have extreme calcified right and left coronary arteries, severe triple-vessel disease, severe disease involving the proximal RCA, severe disease involving the ostial circumflex and severe disease involving the ostial left anterior descending coronary artery. Based on this, the patient was referred for bypass surgery and the patient underwent three- vessel bypass with LOPES to LAD, SVG to OM and SVG to PDA, Preop echocardiogram showed a preserved LV function with an ejection fraction of 55-60%. The patient has mild concentric left ventricular hypertrophy, patient was admitted to intensive care unit she is currently on assist mode ventilation with FiO2 of 40% tidal volume of 400 and PEEP of 5, patient was slightly agitated earlier today in the morning and this is delayed her expiration this will be reevaluated in the next few hours hopefully she'll be extubated her on today. 12/30: Patient has been successfully extubated. She remains in the intensive care unit. Patient did have some anxiety issues and a sitter is at the bedside. She states that she is feeling "droggy" but is quite talkative. She denies having any headache. Positive cough. She denies passing any gas. No bowel movement. Her chest pain is currently controlled. She denies any shortness of breath. Chest tubes, Segovia, right-sided cordis remain in place. Patient has a LIZABETH drain to the left lower extremity. Blood sugars are running in the low 100s and we will plan to transition her over to Levemir and NovoLog scale and discontinue insulin drip. Hemoglobin is 7.4, platelet count 82. patient is status post total of 4 units packed RBCs and 2 fresh frozen plasma, 1 platelet. 01/02: Patient remains in the intensive care unit. Her blood sugars are running 84-108 and Levemir decreased to 8 units and held for today. She is currently on oxygen at 4 L nasal cannula pulse oxing 97%. Over the weekend, Segovia catheter and chest tubes were removed. She did have some confusion during the night with concern for owners. We will add in melatonin for sleep. Patient is scheduled for transfer to [facility]. 01/03: Patient's blood sugars were running low and we will discontinue the long- acting Levemir and continue only NovoLog scale. Patient is only reaching 500 on incentive spirometry. She is eating okay and has had formed stools. She denies having any chest pain. She does complain of feeling tired and fatigues easily. She apparently was a little agitated during the night and got herself up into a chair alone but no major problems. Patient is now a [facility] care overflow. 01/04: Patient has been evaluated by Dr. Dorantes with plan for transfer to the [facility] for inpatient rehab. Patient is a 2 person assist and doubt the patient appropriate for inpatient rehab. Patient continues to wait for bed in selective care unit. Solu-Medrol has been changed to Medrol Dosepak. She was cleared for discharge by pulmonary medicine. Pulse ox is 94% on 4 L. White count is 14.6, hemoglobin 8.0, platelet count 195. Unfortunately , after patient had pacer wires removed she became bradycardic and unresponsive. She was given 1 L of IV fluids, she is currently on BiPAP and echocardiogram has been ordered with concern for internal bleeding. Patient is noted to have a hematoma to the left upper inner thigh but no other sources of bleeding noted. The patient had a drop in her hemoglobin 5.9 is scheduled for transfusion today. Patient denies having shortness of breath or chest pain. She does complain of pain in the left lower leg. 01/05: Patient has had INR of 2 since arrival. Daughter is at bedside and states that the patient does not take any anticoagulants however she does drink 3-4 beers daily which she does try to hide from family. Patient has been placed on amiodarone related to atrial fibrillation. She is also had some confusion during the night and a urine specimen was sent. Cozaar and Norvasc are held due to blood pressure. Blood pressures are ranging in the low 100s to the 1 teens. Heart rate is 62. Pulse ox saturation is 95% on 4 L of nasal cannula. Urinary output is 40-60 ML's per hour. 01/06- patient remains in the intensive care unit most likely will go to [facility] for inpatient rehab on Tuesday. She is getting up out of bed and planning for shower this morning. She is alert this morning she states she slept well last night. Patient was seen by Dr. Colindres regarding coagulopathy related to liver insufficiency/vitamin K deficiency acute with chronic moderate alcohol use accessory basilar by hemodynamic changes from surgery, immunoglobulin and statin use. Patient is status post oral vitamin K and subsequently IV vitamin K. Dr. Colindres's recommended resuming aspirin and Plavix only once INR is normalized. INR is 1.3 and patient will be resumed back on Plavix, aspirin and subcu heparin today. Hemoglobin is at 8.8, white count 15.2 , creatinine 0.47. Blood sugars are running between 132 and 200. Review Of Systems: Constitutional: No fever, no chills, no night sweats. No weight change. + weakness, +fatigue no lethargy. EENT: No headache. No blurred vision or double vision, no loss of vision. No loss of Hearing, no ringing in the ears, no dizziness. No nasal drainage or congestion. No epistaxis. No sore throat. Lungs: No shortness of breath, +cough, + sputum production. No wheezing. Cardiovascular: No chest pain (controlled), no lower extremity edema. No palpitations. No paroxysmal nocturnal dyspnea. No orthopnea. No lightheadedness or dizziness. + syncopal episodes. Abdominal: No abdominal pain. No nausea, vomiting. No diarrhea. No constipation. No bloody or tarry stools. No loss of appetite. Genitourinary: No dysuria, increased frequency, urgency. No urinary retention. Musculoskeletal: No myalgias. + muscle weakness, no gait dysfunction, no frequent falls. No back pain. No neck pain. Integumentary: No wounds, no lesions. No rash or pruritus. No unusual bruising. No change in hair or nails. Neurologic: No aphasia. No facial droop. No change in mentation. No head injury. No headache. No paralysis. No paresthesia. Psychiatric: No depression. No anxiety. No mood swings. Endocrine: No abnormal blood sugars. No weight change. No excessive sweating or thirst. Objective - Vital Signs Vital signs: Vital Signs Temp 97.8 F 01/06/18 08:00 Pulse 58 L 01/06/18 08:15 Resp 14 01/06/18 08:00 BP 143/68 01/06/18 08:00 Pulse Ox 100 01/06/18 08:00 Intake & Output 01/05/18 01/06/18 01/06/18 18:59 06:59 18:59 Intake Total 1473.1 220 272.129 Output Total 370 565 65 Balance 1103.1 -345 207.129 Weight 64.7 kg Intake: IV 20 0.9 20 Intake, IV Titration 873.1 220 272.129 Amount Amiodarone 450 mg In 483.1 232.129 Dextrose 5% in Water 250 ml @ 1 MG/MIN 33.33 mls/ hr IV .[id number] JENNIFER Rx#: [id number] Dextrose 5% in Water 100 100 ml @ 618 mls/hr IV .Q10M ONE with Amiodarone 150 mg Rx#:[id number] Phytonadione 5 mg In 50 Sodium Chloride 0.9% 50 ml @ 100 mls/hr IVPB ONCE STA Rx#:[id number] Sodium Chloride 0.9% 1, 240 220 40 000 ml @ 20 mls/hr IV . Q24H [facility] Rx#:[id number] Oral 580 Output: Urine 370 565 65 Other: Voiding Method Indwelling Catheter Indwelling Catheter ABP, PAP, CO, CI - Last Documented Arterial Blood Pressure 156/117 Pulmonary Artery Pressure 33/17 Cardiac Output 4 Cardiac Index 2.6 - Exam Constitutional General appearance: no acute distress, patient is sitting in a wheelchair and appears to be comfortable. - EENT ENT: Pupils equal round, conjunctiva slightly pale, mucous members of the mouth slightly dry. Trachea midline. Ears: bilateral: normal - Neck Neck: no lymphadenopathy Carotids: bilateral: upstroke delayed - Respiratory Respiratory: bilateral: diminished, rales, rhonchi, prolonged expiration, negative: dullness, wheezing - Cardiovascular Rhythm: regular Heart sounds: normal: S1, S2 Abnormal Heart Sounds: systolic murmur, rub, S3 Gallop - Gastrointestinal General gastrointestinal: normal bowel sounds, soft, no splenomegaly, no tenderness, no umbilical hernia, no ventral hernia - Integumentary Integumentary: normal, normal turgor - Psychiatric Psychiatric: A&O x's 3, appropriate affect, intact judgment & insight - Labs CBC & Chem 7: 01/06/18 04:39 01/06/18 04:39 Labs: Abnormal Lab Results - Last 24 Hours (Table) 01/05/18 01/05/18 01/05/18 Range/Units 07:59 07:59 12:07 WBC (3.8-10.6) k/uL RBC (3.80-5.40) m/uL Hgb (11.4-16.0) gm/dL Hct (34.0-46.0) % RDW (11.5-15.5) % Neutrophils # (1.3-7.7) k/uL Neutrophils # (Manual) 12.40 H (1.3-7.7) k/uL Lymphocytes # (1.0-4.8) k/uL Metamyelocytes # (Man) 0.15 H (0) k/uL PT (9.0-12.0) sec INR (<1.2) Sodium (137-145) mmol/L Chloride (98-107) mmol/L Carbon Dioxide (22-30) mmol/L BUN (7-17) mg/dL Creatinine (0.52-1.04) mg/dL Glucose (74-99) mg/dL POC Glucose (mg/dL) 138 H (75-99) mg/dL Calcium (8.4-10.2) mg/dL Magnesium 2.7 H (1.6-2.3) mg/dL Total Bilirubin (0.2-1.3) mg/dL AST (14-36) U/L ALT (9-52) U/L Total Protein (6.3-8.2) g/dL Albumin (3.5-5.0) g/dL Urine Appearance (Clear) Urine Protein (Negative) Urine Blood (Negative) Ur Leukocyte Esterase (Negative) Urine RBC (0-5) /hpf Urine WBC (0-5) /hpf Urine Bacteria (None) /hpf Urine Mucus (None) /hpf 01/05/18 01/05/18 01/05/18 Range/Units 16:13 16:41 20:31 WBC 16.1 H (3.8-10.6) k/uL RBC 2.90 L (3.80-5.40) m/uL Hgb 8.9 L (11.4-16.0) gm/dL Hct 27.3 L (34.0-46.0) % RDW 18.2 H (11.5-15.5) % Neutrophils # 14.4 H (1.3-7.7) k/uL Neutrophils # (Manual) (1.3-7.7) k/uL Lymphocytes # 0.7 L (1.0-4.8) k/uL Metamyelocytes # (Man) (0) k/uL PT (9.0-12.0) sec INR (<1.2) Sodium (137-145) mmol/L Chloride (98-107) mmol/L Carbon Dioxide (22-30) mmol/L BUN (7-17) mg/dL Creatinine (0.52-1.04) mg/dL Glucose (74-99) mg/dL POC Glucose (mg/dL) 151 H 200 H (75-99) mg/dL Calcium (8.4-10.2) mg/dL Magnesium (1.6-2.3) mg/dL Total Bilirubin (0.2-1.3) mg/dL AST (14-36) U/L ALT (9-52) U/L Total Protein (6.3-8.2) g/dL Albumin (3.5-5.0) g/dL Urine Appearance (Clear) Urine Protein (Negative) Urine Blood (Negative) Ur Leukocyte Esterase (Negative) Urine RBC (0-5) /hpf Urine WBC (0-5) /hpf Urine Bacteria (None) /hpf Urine Mucus (None) /hpf 01/05/18 01/06/18 01/06/18 Range/Units Unknown 04:39 04:39 WBC 15.2 H (3.8-10.6) k/uL RBC 2.80 L (3.80-5.40) m/uL Hgb 8.8 L (11.4-16.0) gm/dL Hct 27.0 L (34.0-46.0) % RDW 18.6 H (11.5-15.5) % Neutrophils # 14.0 H (1.3-7.7) k/uL Neutrophils # (Manual) (1.3-7.7) k/uL Lymphocytes # 0.5 L (1.0-4.8) k/uL Metamyelocytes # (Man) (0) k/uL PT (9.0-12.0) sec INR (<1.2) Sodium 133 L (137-145) mmol/L Chloride 96 L (98-107) mmol/L Carbon Dioxide 32 H (22-30) mmol/L BUN 19 H (7-17) mg/dL Creatinine 0.47 L (0.52-1.04) mg/dL Glucose 133 H (74-99) mg/dL POC Glucose (mg/dL) (75-99) mg/dL Calcium 8.0 L (8.4-10.2) mg/dL Magnesium (1.6-2.3) mg/dL Total Bilirubin 2.0 H (0.2-1.3) mg/dL AST 51 H (14-36) U/L ALT 54 H (9-52) U/L Total Protein 5.1 L (6.3-8.2) g/dL Albumin 3.0 L (3.5-5.0) g/dL Urine Appearance Cloudy H (Clear) Urine Protein Trace H (Negative) Urine Blood Small H (Negative) Ur Leukocyte Esterase Large H (Negative) Urine RBC 8 H (0-5) /hpf Urine WBC 86 H (0-5) /hpf Urine Bacteria Occasional H (None) /hpf Urine Mucus Moderate H (None) /hpf 01/06/18 01/06/18 Range/Units 04:39 06:28 WBC (3.8-10.6) k/uL RBC (3.80-5.40) m/uL Hgb (11.4-16.0) gm/dL Hct (34.0-46.0) % RDW (11.5-15.5) % Neutrophils # (1.3-7.7) k/uL Neutrophils # (Manual) (1.3-7.7) k/uL Lymphocytes # (1.0-4.8) k/uL Metamyelocytes # (Man) (0) k/uL PT 12.4 H (9.0-12.0) sec INR 1.3 H (<1.2) Sodium (137-145) mmol/L Chloride (98-107) mmol/L Carbon Dioxide (22-30) mmol/L BUN (7-17) mg/dL Creatinine (0.52-1.04) mg/dL Glucose (74-99) mg/dL POC Glucose (mg/dL) 132 H (75-99) mg/dL Calcium (8.4-10.2) mg/dL Magnesium (1.6-2.3) mg/dL Total Bilirubin (0.2-1.3) mg/dL AST (14-36) U/L ALT (9-52) U/L Total Protein (6.3-8.2) g/dL Albumin (3.5-5.0) g/dL Urine Appearance (Clear) Urine Protein (Negative) Urine Blood (Negative) Ur Leukocyte Esterase (Negative) Urine RBC (0-5) /hpf Urine WBC (0-5) /hpf Urine Bacteria (None) /hpf Urine Mucus (None) /hpf Microbiology - Last 24 Hours (Table) 01/05/18 Unknown Urine Culture - Preliminary Urine,Voided Assessment and Plan Plan: 1. Status post CABG 3 with LOPES to LAD, SVG to OM, SVG to PDA. Patient has been successfully extubated, continue aggressive pulmonary toileting with nebulized treatment. Continue DuoNeb treatments, Pulmicort, Perforomist. Continue aspirin 81 mg daily, Lipitor 40 mg daily, Plavix 75 mg daily, amiodarone. Long-acting insulin discontinued. NovoLog scale. 2. CAD post CABG. continue as in #1. 3. Hypertension and hypertensive cardiovascular disease. Continue losartan 25 mg orally once every day, Lopressor 25 mg orally 3 times daily. 4. Hyperlipidemia. Continue Lipitor 40 mg once every day. 5. Moderate bilateral vascular disease. Continue aspirin and Lipitor for secondary prevention. 6. Mild COPD. Continue aggressive pulmonary toileting with nebulized treatment. 7. 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 Continue with current pain management. 8. Hypothyroidism. Continue patient on Synthroid 25 g orally once every day. 9. Recurrent depression. Continue Wellbutrin 75 mg orally once every day. 10. Syncopal episode with hypotension with acute blood loss anemia occurring after pacer wires were removed. Patient is scheduled for transfusion 2 units packed RBCs. Echocardiogram being done. Monitor hemoglobin closely. 11. Coagulopathy related to liver insufficiency/vitamin K deficiency acute with chronic moderate alcohol use accessory basilar by hemodynamic changes from surgery, immunoglobulin and statin use. Patient is status post oral vitamin K and subsequently IV vitamin K. Dr. Bernadine's recommended resuming aspirin and Plavix only once INR is normalized. Patient is scheduled to resume aspirin, Plavix and heparin subcu today as INR is improved. 12. Postoperative paroxysmal atrial fibrillation, unexpected but potential outcome of surgery. Amiodarone was initiated. Continue Lopressor. 13. Hyperglycemia secondary to steroids with no history of diabetes. Continue NovoLog scale Discharge plan: Inpatient rehab at [facility] on Tuesday Impression and plan of care have been directed as dictated by the signing physician. Yecenia Holcomb nurse practitioner acting as scribe for signing physician.
[2018-01-06] MEDS: METOPROLOL TARTRATE 25 MG TAB PO SCH ×2 (17:02→23:00)
[2018-01-06] MEDS: HEPARIN SODIUM,PORCINE 5,000 UNIT/ML 1 ML VIAL SQ SCH (17:02)
[2018-01-06 17:29] LABS: Glucose,Whole Blood 137 mg/dL (75-99)
[2018-01-06] MEDS: MELATONIN 3 MG TABLET PO SCH (20:47)
[2018-01-06] MEDS: SENNOSIDES-DOCUSATE SODIUM 1 EACH TAB PO SCH (20:48)
[2018-01-06 21:04] LABS: Glucose,Whole Blood 170 mg/dL (75-99)
[2018-01-07] MEDS: HEPARIN SODIUM,PORCINE 5,000 UNIT/ML 1 ML VIAL SQ SCH ×3 (05:12→18:27)
[2018-01-07 05:13] LABS: Anisocytosis Slight; Basophils % (A) 0 %; Eosinophils % (A) 0 %; HCT 27.6 % (34.0-46.0); HGB 9.1 gm/dL (11.4-16.0); Hypochromasia Slight; Lymphocytes # (A) 0.5 k/uL (1.0-4.8); Lymphocytes % (A) 3 %; MCH 31.5 pg (25.0-35.0); MCV 95.2 fL (80.0-100.0); Macrocytosis Slight; Monocytes # (A) 0.7 k/uL (0-1.0); Monocytes % (A) 4 %; Neutrophils # (A) 15.8 k/uL (1.3-7.7); Neutrophils % (A) 92 %; Platelet Count 192 k/uL (150-450); RDW 17.9 % (11.5-15.5); WBC 17.1 k/uL (3.8-10.6)
[2018-01-07 05:20] LABS: INR 1.3 (<1.2); Partial Thromboplastin Time 22.3 sec (22.0-30.0); Prothrombin Time 12.4 sec (9.0-12.0)
[2018-01-07 05:27] LABS: Anion Gap 5 mmol/L; Blood Urea Nitrogen 18 mg/dL (7-17); Calcium 8.4 mg/dL (8.4-10.2); Carbon Dioxide 32 mmol/L (22-30); Chloride 97 mmol/L (98-107); Glucose 125 mg/dL (74-99); Magnesium 2.1 mg/dL (1.6-2.3); Sodium 134 mmol/L (137-145)
[2018-01-07] MEDS: LEVOTHYROXINE 25 MCG TAB PO SCH (06:44)
[2018-01-07 07:05] LABS: Glucose,Whole Blood 131 mg/dL (75-99)
--- NOTE | 2018-01-07 07:26 | XR ---
EXAMINATION TYPE: XR chest 2V DATE OF EXAM: 01/07/2018 COMPARISON: Chest x-ray from yesterday and older studies HISTORY: Post open CABG procedure progress study. TECHNIQUE: Frontal and lateral views of the chest are obtained. FINDINGS: Post-CABG changes with mediastinal clips and sternal wires is present . Cardiac silhouette size remains enlarged with atherosclerotic thoracic aorta. There is persistent small to tiny right pl eural effusion and associated right basilar atelectasis. There is slightly more prominent moderate si ze left pleural effusion with associated left basilar atelectasis. The osseous structures are intac t. IMPRESSION: Cardiomegaly with small to tiny right pleural effusion and associated right basilar atel ectasis felt stable. There is slightly more prominent moderate size left pleural effusion on current study noted.
[2018-01-07] MEDS: BUDESONIDE 0.5 MG/2 ML NEBU INHALATION SCH ×2 (08:16→20:04)
[2018-01-07] MEDS: IPRATROPIUM-ALBUTEROL 3 ML NEB INHALATION SCH ×4 (08:16→20:04)
[2018-01-07] MEDS: FORMOTEROL FUMARATE 20 MCG/2 ML NEBU INHALATION SCH ×2 (08:16→20:04)
--- NOTE | 2018-01-07 09:08 | PN ---
PROGRESS NOTE Mrs Murcia is a 77-year-old female status post coronary artery bypass grafting. She had episode of paroxysmal atrial fibrillation. She is back in sinus mechanism. She had transient hypotension 3 days ago that stabilized. She underwent ultrasound of her chest and revealed left-sided thoracenteses. She is feeling better. Hemodynamically, she is stable. She denies any chest pain or palpitations. She continues to be on amiodarone 400 mg twice a day, aspirin 81 mg daily and Lipitor 40 mg daily, Plavix 75 mg daily, losartan 50 mg daily, metoprolol tartrate 25 mg 3 times a day. PHYSICAL EXAMINATION: Blood pressure running in the 130s with a heart rate in the 60s. Lungs with decreased breath sounds left base. HEART: Regular rate and rhythm, S1, S2. No S3. No rub. ABDOMEN: Soft nontender. Extremities: No significant edema. LAB DATA: BUN and creatinine of 18 and 0.49, potassium 4.0. Hemoglobin of 9.1. IMPRESSION: 1. Status post coronary artery bypass grafting. 2. Paroxysmal atrial fibrillation remains in sinus mechanism. 3. Left pleural effusion may undergo thoracentesis. 4. Hypertension, under better control. 5. Hyperlipidemia. 6. Pericardial effusion. RECOMMENDATION: From the cardiac standpoint, we will continue the present therapy. Increase her level of activity. Follow her blood pressure and depending on the trend further recommendations will be made. MMODL / IJN: [id number] /
[2018-01-07] MEDS: FERROUS SULFATE 325 MG TAB PO SCH (09:11)
[2018-01-07] MEDS: CLOPIDOGREL 75 MG TAB PO SCH (09:11)
[2018-01-07] MEDS: methylPREDNISolone 4 MG TAB TAPER PO SCH (09:11)
[2018-01-07] MEDS: AMIODARONE 200 MG TAB PO SCH ×2 (09:11→20:34)
[2018-01-07] MEDS: ASPIRIN 81 MG PO SCH (09:11)
[2018-01-07] MEDS: NYSTATIN 100,000 UNIT/ML SUSP 500,000 UNIT/5 ML CUP PO SCH ×4 (09:11→23:09)
[2018-01-07] MEDS: THIAMINE 100 MG TAB PO SCH (09:12)
[2018-01-07] MEDS: ASCORBIC ACID 500 MG TAB PO SCH (09:12)
[2018-01-07] MEDS: ATORVASTATIN 40 MG TAB PO SCH (09:12)
[2018-01-07] MEDS: METOPROLOL TARTRATE 25 MG TAB PO SCH ×3 (09:12→23:09)
[2018-01-07] MEDS: LOSARTAN 50 MG TAB PO SCH (09:12)
[2018-01-07] MEDS: PANTOPRAZOLE 40 MG TABLET PO SCH (09:12)
[2018-01-07] MEDS: INSULIN ASPART 100 UNIT/ML 1 ML 10 ML VIAL SQ SCH ×4 (09:13→20:34)
[2018-01-07] MEDS: buPROPion 75 MG TAB PO SCH (11:22)
--- NOTE | 2018-01-07 11:38 | P.PN ---
Subjective Progress Note Date: 01/07/18 Principal diagnosis: Status post CABG for triple vessel coronary artery disease, postoperative day # 10 This is a 77-year-old female patient, known history of COPD with a preop FEV1 of 70% of predicted, and addition to coronary artery disease, peripheral vascular disease and hypertension, who was experiencing symptoms of exertional dyspnea and angina. She underwent stress test and she was found to have reversible ischemia and based on that the patient underwent a cardiac catheterization and she was found to have extreme calcified right and left coronary arteries, severe triple-vessel disease, severe disease involving the proximal RCA, severe disease involving the ostial circumflex and severe disease involving the ostial left anterior descending coronary artery. Based on this, the patient was referred for bypass surgery and the patient underwent three- vessel bypass with LOPES to LAD. Preop echocardiogram showed a preserved LV function with an ejection fraction of 55-60%. The patient has mild concentric left ventricular hypertrophy. I'm seeing this patient immediately after she arrived to the intensive care unit. She is sedated, comfortable likely distress. She is on a mechanical ventilator. She is an assist-control mode of ventilation, at a rate of 12, tidal volume of 400 with an FiO2 of 100% and PEEP of 5. Chest x-ray showed adequate expansion of both lungs. The patient is to mediastinal and 1 pleural chest tube on the left. Output is minimal at this point. There is no evidence of any air leak. There is no evidence of pneumothorax. The the blood gas showed a pH of 7.31 with a pCO2 of 46 and FiO2 is more than 400. Based on these results, increased respiratory rate up to 18. And I also drop the FiO2 down to 50%. She is producing adequate amount of urine output. She arrived to the ICU from the operating room with 12 mics of levo fed and currently she is off pressors. Cardiac output is at 2.6 with an index of 4.4. Pulmonary artery pressures are nonelevated. On 12/29/2017, the patient is postop day #1. The patient was kept intubated and mechanically ventilated overnight as the patient was having issues with increased output from the chest tubes, anemia, low cardiac output and difficulties with her weaning parameters overnight, the patient was given a total of 2 units of packed RBC 4 hemoglobin of 5.2. Subsequent hemoglobin came up to 6.4 and following that was up down to 5.8. The patient was given an additional 2 units of packed RBC this morning. Doppler from the chest tubes have decline. Overall output has been 800 mL of the mediastinal chest tubes and at times cc from the pleural chest tube as the patient arrived from the operating room. The patient was also given fresh frozen plasma total of 2 units. The patient was kept sedated with Diprivan and she remained calm and comfortable. There were 2 attempts to wean this patient a mechanical ventilator overnight. Her weaning parameters of borderline. Subsequent blood gases showed respiratory acidosis and I did not feel comfortable extubating this patient. Based on this, the patient was kept intubated on mechanical ventilator throughout the night. This morning, following transfusion with 2 units of packed RBC, the patient seemed to hemodynamically stable and she was doing okay. As such she was taken off the sedation and she was given a spelled his breathing trial with a pressure support of 5 and a PEEP of 5. His subsequent blood gases showed a mild component of respiratory acidosis with pCO2 of 50 and pH of 7.30. At that point, the patient was awake and she was following commands. She did not show any signs of respiratory distress. I decide to extubate this patient to a nasal cannula. Postextubation, the patient was followed up very closely. She was noted to bronchospastic and wheezy. Based on that, she was given IV Solu-Medrol. Following that she was placed on a BiPAP at a pressure of 14/5 cm of water with an FiO2 of 50%. The most recent blood gases showed a pH of 7.34 with a pCO2 of 42 and pO2 of 65 and this was done and FiO2 of 40%. The patient was somewhat restless and was getting agitated in bed. Based on that, I put her on Precedex and currently it is at 0.4 g per KG per hour. The chest x-ray from earlier this morning showed small better pleural effusion. There was cardiomegaly. [place] catheter was in place. Rest of the chest were all in place. There was some limited bibasilar consolidation. She is afebrile. She is hemodynamically stable and currently the cardiac index is above 2.. Most recent hemoglobin is at 7.2. She is afebrile. She is on no pressors at this point in time. Cardiac rhythm is sinus. On 12/30/2017 the patient is postop day #2. As noted, and as mentioned earlier , the patient was extubated yesterday and postextubation the patient became bronchospastic and wheezy and she had significant respiratory distress. At that point she was started on BiPAP for respiratory support at a pressure of 14/ 6 cm of water. FiO2 was kept at 50%. The patient had some difficulties initially to tolerate the BiPAP. She was restarted on Precedex and the dose was titrated to control her agitation. With these changes, she did extremely well and overnight she was kept on a BiPAP and in the center she was placed on a combination of bronchodilators steroids which optimize her COPD exacerbation. This morning, the patient was taken off the BiPAP and she was placed on 5 L of oxygen nasal cannula. The chest x-ray from today shows a small right-sided pleural effusion. Chest tubes are all in place and output is diminished compared to yesterday with a stable hemoglobin. Hemodynamically, the patient is on no pressors. Cardiac index is at 1.9. She is producing adequate urine output. Hemoglobin is also stable. Based on all this, I weaned her off the Precedex earlier this morning and subsequently discontinued the BiPAP and currently she sometimes of oxygen by nasal cannula. She is breathing easier. She is less short of breath compared to yesterday. Chest tubes are all in place. Sternum stable clean and intact. The patient has a skin laceration left lower extremity and local wound care is being done and the LIZABETH drain is also in place. She is moving all 4 extremities without any limitation. No nausea. No vomiting. No emesis. No cardiac arrhythmias. She has a hemoglobin of 7.4. White cell count is nonelevated. Blood work and electrodes are all within normal limits earlier this morning. Blood sugars of 118. On 12/31/2017, I'm seeing this patient for a follow-up. Our efforts have succeeded in weaning patient off the BiPAP. Note that yesterday she became short of breath and she had to be placed on BiPAP with low dose Precedex for discomfort and agitation and restlessness. This morning she was weaned off and she is currently on 5 L of oxygen by nasal cannula sitting up on a recliner. Extremities no chest tubes are in place. The left pleural chest tube in the right pleural chest were also in place. The patient has put out approximately 80 mL from the left-sided pleural chest tube and frontal 30 mL over the past 24 hours. He still chest tubes have drain 60 mL over the past 8 hours and 12 mL over the past 24 hours. We're considering removal at least on the chest tube. The patient is pulling approximately 500 mL on the incentive spirometer. The LIZABETH drains in place in the left lower extremity and output has been around 48 and she is over the past 8 hours. There is a skin laceration which is being taken care of by local wound care. Sternum stable clean and intact. Hemodynamically stable. A dose of Lasix 40 mg IV push was given today. The cardiac rhythm is sinus. The patient is less bronchus spastic and wheezy compared to yesterday. She remains on DuoNeb neb treatments around the clock, she is also on a combination with as a night and Perforomist nebulized treatments twice a day and IV Solu Medrol. Hemoglobin from today is 6.9 and we' re holding of any blood transfusions for now. Patient is currently on Levemir 12 units in addition to coverage. On 01/01/2018, I'm seeing this patient for a follow-up. She remains in the intensive care unit. She is currently on oxygen by nasal cannula. Breathing is easier. Less short of breath. Chest tubes will be removed today and output has been minimal for now and the patient's chest x-ray showing small better pleural effusion more so on the right and the patient was given a dose of Lasix. Sternum stable clean and intact. Cardiac rhythm is sinus. The patient is using incentive spirometer and she is pulling approximately 500 mL she is equivalent to yesterday. Note that the left-sided chest tube has drained approximately 105 over the past 8 hours and to 45 over the past 24 hours. As for the mediastinal chest tubes have drain 60 mL over the past 8 hours and 140s over the past 24 hours. The fluid balance is -1.3 L over the past 24 hours. The [place] catheter has been removed. The patient is on bronchodilators. The patient is on systemic steroids. Hemoglobin is stable at 7.9. Normal renal function for now. No altered mentation. She is awake and following commands and answering questions appropriately. Chest x-ray was reviewed. Reevaluated today on 01/02/2018, patient remains on 5 L nasal cannula, O2 saturation is marginal, patient remains to do poorly with incentive spirometry, intermittent episodes of confusion at night was noted. Chest x-ray did show small bilateral pleural effusions, patient remains on diuretics. Labs were all reviewed, renal profile is normal. Hemoglobin is 7.3. Patient continues to have some dyspnea on exertion. Reevaluated today on 01/03/2018, remains on 5 L nasal cannula, patient is doing well, asymptomatic, seems to be more awake and active this morning. She is doing a bit better with incentive spirometry. And definitely no episodes of confusion today. Chest x-ray continues to show small bilateral effusions, and the patient remains on diuretics. Hemoglobin today is 7.7. Electrodes are normal renal profile is relatively normal. Chest x-ray was reviewed. Reevaluated today on 01/04/2018, patient is doing well, she is actually an overflow in the ICU from [facility]. No major issues overnight, agent remains on few liters nasal cannula, in no distress, asymptomatic, and no confusion or delirium. Labs and chest x-ray were reviewed, minimal left basilar atelectasis and small tiny effusion noted. CBC is relatively normal hemoglobin is holding at 8 electrolytes and renal profile are normal. Reevaluated today on 01/05/2018, patient remains in the ICU, she had an episode yesterday of confusion, associated with syncope and hypotension. Hemoglobin yesterday was 5.9, and the patient received 2 units of packed RBCs. Today the patient seems to be doing better, remains on BiPAP which I plan to change to a nasal cannula, chest x-ray is showing slightly larger left-sided pleural effusion. Patient was also placed on amiodarone 4 atrial fibrillation with rate in the range of low 90s. Overall the patient remains marginal, and I don' t believe the patient isn't ready to be transferred out of the ICU yet. WBC count today is 15.0 hemoglobin is 9.7 and electrolytes and renal profile are normal. Chest x-ray again was reviewed and it showed atelectasis and left- sided pleural effusion. Rather small. Reevaluated today on 01/06/2018, patient is doing well, on nasal cannula, asymptomatic, no cough no wheezing no shortness of breath, and mentally he seems to be more appropriate, no confusion today whatsoever. She is alert oriented 3, no further episodes of cardiac arrhythmia, she is compliant with incentive spirometry, and her amiodarone drip is being addressed by cardiology. Her bruising and anemia is being addressed by hematology. Hemoglobin today is 8.8. Electrolytes are normal renal profile is normal. Liver enzymes are minimally elevated. Bilirubin is 2.0. Chest x-ray continues to show small left pleural effusion and atelectasis, not large enough to consider thoracentesis on the left side. Reevaluated today on 01/03/2018, remains in the ICU, her mental status seems to be gradually improving, today she is the best I have seen her. She is not confused at all, she denies any shortness of breath no cough no wheezing. Patient is presently on overflow from [facility], but if she remains in the ICU tomorrow, she could be sent to rehab probably early next week. All her labs were reviewed chest x-ray was reviewed and basically unchanged Objective - Vital Signs Vital signs: Vital Signs Temp 97.4 F L 01/07/18 08:00 Pulse 100 01/07/18 11:35 Resp 11 L 01/07/18 08:00 BP 152/83 01/07/18 08:00 Pulse Ox 96 01/07/18 08:00 Intake & Output 01/06/18 01/07/18 01/07/18 18:59 06:59 18:59 Intake Total 852.129 100 Output Total 95 600 Balance 757.129 -600 100 Weight 64.7 kg 62.6 kg Intake: Intake, IV Titration 272.129 Amount Amiodarone 450 mg In 232.129 Dextrose 5% in Water 250 ml @ 1 MG/MIN 33.33 mls/ hr IV .[id number] JENNIFER Rx#: [id number] Sodium Chloride 0.9% 1, 40 000 ml @ 20 mls/hr IV . Q24H JENNIFER Rx#:[id number] Oral 580 100 Output: Urine 95 600 Other: Voiding Method Indwelling Catheter Bedside Commode Bedside Commode ABP, PAP, CO, CI - Last Documented Arterial Blood Pressure 156/117 Pulmonary Artery Pressure 33/17 Cardiac Output 4 Cardiac Index 2.6 - Exam Physical Exam: Revealed a 77-year-old female, in no distress. Head: Atraumatic, normocephalic. HEENT:[Neck is supple.] [No neck masses.] [No thyromegaly.] [No JVD.] No icterus, moist mucous membranes. Chest: [Diminished breath sounds and dullness at the bases bilaterally, no rhonchi and no wheezes. No chest wall tenderness. Symmetrical chest expansion. ] Cardiac Exam: [Normal S1 and S2, no S3 gallop, no murmur.] Abdomen: [Soft, nontender, no megaly, no rebound, no guarding, normal bowel sounds.] Extremities: Both were wrapped with Mario bandage, Neurological Exam: Alert oriented 3, no gross focal neurologic deficits. Psychiatric: Normal mood, affect and mental status examination. Skin: Scattered areas of ecchymosis and bruising bilaterally. - Labs CBC & Chem 7: 01/07/18 04:32 01/07/18 04:32 Labs: Abnormal Lab Results - Last 24 Hours (Table) 01/06/18 01/06/18 01/06/18 Range/Units 11:52 17:14 20:37 WBC (3.8-10.6) k/uL RBC (3.80-5.40) m/uL Hgb (11.4-16.0) gm/dL Hct (34.0-46.0) % RDW (11.5-15.5) % Neutrophils # (1.3-7.7) k/uL Lymphocytes # (1.0-4.8) k/uL PT (9.0-12.0) sec INR (<1.2) Sodium (137-145) mmol/L Chloride (98-107) mmol/L Carbon Dioxide (22-30) mmol/L BUN (7-17) mg/dL Creatinine (0.52-1.04) mg/dL Glucose (74-99) mg/dL POC Glucose (mg/dL) 153 H 137 H 170 H (75-99) mg/dL 01/07/18 01/07/18 01/07/18 Range/Units 04:32 04:32 04:32 WBC 17.1 H (3.8-10.6) k/uL RBC 2.90 L (3.80-5.40) m/uL Hgb 9.1 L (11.4-16.0) gm/dL Hct 27.6 L (34.0-46.0) % RDW 17.9 H (11.5-15.5) % Neutrophils # 15.8 H (1.3-7.7) k/uL Lymphocytes # 0.5 L (1.0-4.8) k/uL PT 12.4 H (9.0-12.0) sec INR 1.3 H (<1.2) Sodium 134 L (137-145) mmol/L Chloride 97 L (98-107) mmol/L Carbon Dioxide 32 H (22-30) mmol/L BUN 18 H (7-17) mg/dL Creatinine 0.49 L (0.52-1.04) mg/dL Glucose 125 H (74-99) mg/dL POC Glucose (mg/dL) (75-99) mg/dL 01/07/18 Range/Units 07:02 WBC (3.8-10.6) k/uL RBC (3.80-5.40) m/uL Hgb (11.4-16.0) gm/dL Hct (34.0-46.0) % RDW (11.5-15.5) % Neutrophils # (1.3-7.7) k/uL Lymphocytes # (1.0-4.8) k/uL PT (9.0-12.0) sec INR (<1.2) Sodium (137-145) mmol/L Chloride (98-107) mmol/L Carbon Dioxide (22-30) mmol/L BUN (7-17) mg/dL Creatinine (0.52-1.04) mg/dL Glucose (74-99) mg/dL POC Glucose (mg/dL) 131 H (75-99) mg/dL Microbiology - Last 24 Hours (Table) 01/05/18 Unknown Urine Culture - Preliminary Urine,Voided Gram Neg Bacilli Assessment and Plan Assessment: Impression: Status post triple-vessel CABG postoperative day #10 Bilateral pleural effusions with postoperative changes, expected post CABG. And areas of atelectasis/expected post CABG. Acute on chronic hypoxic respiratory failure multifactorial secondary to COPD and bilateral pleural effusion. Multiple comorbidities including underlying COPD, chronic back pain, hypothyroidism, hypertension,. New onset atrial fibrillation, on amiodarone, and her anticoagulation therapy is being addressed by hematology on the case. Recommendation: Continue present supportive care measures, likely discharge by Tuesday. Patient will be transferred to a monitor bed on [facility] once a bed is available. And rehab referral next week Time with Patient: Less than 30
[2018-01-07] MEDS ORDERED: FUROSEMIDE 10 MG/ML 2 ML VIAL IV ONE (11:49)
[2018-01-07 12:15] LABS: Glucose,Whole Blood 136 mg/dL (75-99)
[2018-01-07] MEDS ORDERED: DEXTROSE 5% IN WATER 100 ML with AMIODARONE 150 MG IV ONE (13:13)
[2018-01-07 17:05] LABS: Glucose,Whole Blood 162 mg/dL (75-99)
--- NOTE | 2018-01-07 18:58 | P.PN ---
Subjective Progress Note Date: 01/07/18 This is a 77-year-old female one of my patient with a previous medical history significant for COPD, coronary artery disease, peripheral vascular disease and hypertension, who was experiencing symptoms of exertional dyspnea and angina. She underwent stress test and she was found to have reversible ischemia and based on that the patient underwent a cardiac catheterization and she was found to have extreme calcified right and left coronary arteries, severe triple-vessel disease, severe disease involving the proximal RCA, severe disease involving the ostial circumflex and severe disease involving the ostial left anterior descending coronary artery. Based on this, the patient was referred for bypass surgery and the patient underwent three- vessel bypass with LOPES to LAD, SVG to OM and SVG to PDA, Preop echocardiogram showed a preserved LV function with an ejection fraction of 55-60%. The patient has mild concentric left ventricular hypertrophy, patient was admitted to intensive care unit she is currently on assist mode ventilation with FiO2 of 40% tidal volume of 400 and PEEP of 5, patient was slightly agitated earlier today in the morning and this is delayed her expiration this will be reevaluated in the next few hours hopefully she'll be extubated her on today. 12/30: Patient has been successfully extubated. She remains in the intensive care unit. Patient did have some anxiety issues and a sitter is at the bedside. She states that she is feeling "droggy" but is quite talkative. She denies having any headache. Positive cough. She denies passing any gas. No bowel movement. Her chest pain is currently controlled. She denies any shortness of breath. Chest tubes, Segovia, right-sided cordis remain in place. Patient has a LIZABETH drain to the left lower extremity. Blood sugars are running in the low 100s and we will plan to transition her over to Levemir and NovoLog scale and discontinue insulin drip. Hemoglobin is 7.4, platelet count 82. patient is status post total of 4 units packed RBCs and 2 fresh frozen plasma, 1 platelet. 01/02: Patient remains in the intensive care unit. Her blood sugars are running 84-108 and Levemir decreased to 8 units and held for today. She is currently on oxygen at 4 L nasal cannula pulse oxing 97%. Over the weekend, Segovia catheter and chest tubes were removed. She did have some confusion during the night with concern for owners. We will add in melatonin for sleep. Patient is scheduled for transfer to selective care. 01/03: Patient's blood sugars were running low and we will discontinue the long- acting Levemir and continue only NovoLog scale. Patient is only reaching 500 on incentive spirometry. She is eating okay and has had formed stools. She denies having any chest pain. She does complain of feeling tired and fatigues easily. She apparently was a little agitated during the night and got herself up into a chair alone but no major problems. Patient is now a selective care overflow. 01/04: Patient has been evaluated by Dr. Dorantes with plan for transfer to the [facility] for inpatient rehab. Patient is a 2 person assist and doubt the patient appropriate for inpatient rehab. Patient continues to wait for bed in selective care unit. Solu-Medrol has been changed to Medrol Dosepak. She was cleared for discharge by pulmonary medicine. Pulse ox is 94% on 4 L. White count is 14.6, hemoglobin 8.0, platelet count 195. Unfortunately , after patient had pacer wires removed she became bradycardic and unresponsive. She was given 1 L of IV fluids, she is currently on BiPAP and echocardiogram has been ordered with concern for internal bleeding. Patient is noted to have a hematoma to the left upper inner thigh but no other sources of bleeding noted. The patient had a drop in her hemoglobin 5.9 is scheduled for transfusion today. Patient denies having shortness of breath or chest pain. She does complain of pain in the left lower leg. 01/05: Patient has had INR of 2 since arrival. Daughter is at bedside and states that the patient does not take any anticoagulants however she does drink 3-4 beers daily which she does try to hide from family. Patient has been placed on amiodarone related to atrial fibrillation. She is also had some confusion during the night and a urine specimen was sent. Cozaar and Norvasc are held due to blood pressure. Blood pressures are ranging in the low 100s to the 1 teens. Heart rate is 62. Pulse ox saturation is 95% on 4 L of nasal cannula. Urinary output is 40-60 ML's per hour. 01/06- patient remains in the intensive care unit most likely will go to [facility] for inpatient rehab on Tuesday. She is getting up out of bed and planning for shower this morning. She is alert this morning she states she slept well last night. Patient was seen by Dr. Colindres regarding coagulopathy related to liver insufficiency/vitamin K deficiency acute with chronic moderate alcohol use accessory basilar by hemodynamic changes from surgery, immunoglobulin and statin use. Patient is status post oral vitamin K and subsequently IV vitamin K. Dr. Colindres's recommended resuming aspirin and Plavix only once INR is normalized. INR is 1.3 and patient will be resumed back on Plavix, aspirin and subcu heparin today. Hemoglobin is at 8.8, white count 15.2 , creatinine 0.47. Blood sugars are running between 132 and 200. 01/07: Patient is currently in ICU as a civil selective care overflow. She is sitting up in a chair without any difficulties. She is alert and appropriate at this time. Patient will most likely go to [facility] for inpatient rehab on Tuesday. Patient denies any chest pain or difficulty breathing or fever. WBC 17.1, hemoglobin 9.1, INR was 1.3, sodium 134, BUN 18 creatinine 0.49. Plavix aspirin and subcu heparin have been resumed. She has had some episodes of atrial fibrillation which she received amiodarone bolus for resulting in low blood pressure. Patient does not have any complaints of dizziness or lightheadedness. Review Of Systems: Constitutional: No fever, no chills, no night sweats. No weight change. + weakness, +fatigue no lethargy. No daytime sleepiness. EENT: No headache. No blurred vision or double vision, no loss of vision. No loss of Hearing, no ringing in the ears, no dizziness. No nasal drainage or congestion. No epistaxis. No sore throat. Lungs: No shortness of breath, +cough, + sputum production. No wheezing. Cardiovascular: No chest pain (controlled), no lower extremity edema. No palpitations. No paroxysmal nocturnal dyspnea. No orthopnea. No lightheadedness or dizziness. + syncopal episodes. Abdominal: No abdominal pain. No nausea, vomiting. No diarrhea. No constipation. No bloody or tarry stools. No loss of appetite. Genitourinary: No dysuria, increased frequency, urgency. No urinary retention. Musculoskeletal: No myalgias. + muscle weakness, no gait dysfunction, no frequent falls. No back pain. No neck pain. Integumentary: No wounds, no lesions. No rash or pruritus. No unusual bruising. No change in hair or nails. Neurologic: No aphasia. No facial droop. No change in mentation. No head injury. No headache. No paralysis. No paresthesia. Psychiatric: No depression. No anxiety. No mood swings. Endocrine: No abnormal blood sugars. No weight change. No excessive sweating or thirst. Objective - Vital Signs Vital signs: Vital Signs Temp 97.6 F 01/07/18 16:00 Pulse 89 01/07/18 16:02 Resp 24 01/07/18 16:00 BP 91/58 01/07/18 16:00 Pulse Ox 97 01/07/18 16:00 Intake & Output 01/06/18 01/07/18 01/07/18 18:59 06:59 18:59 Intake Total 852.129 450 Output Total 95 600 500 Balance 757.129 -600 -50 Weight 64.7 kg 62.6 kg Intake: Intake, IV Titration 272.129 Amount Amiodarone 450 mg In 232.129 Dextrose 5% in Water 250 ml @ 1 MG/MIN 33.33 mls/ hr IV .[id number] JENNIFER Rx#: [id number] Sodium Chloride 0.9% 1, 40 000 ml @ 20 mls/hr IV . Q24H JENNIFER Rx#:[id number] Oral 580 450 Output: Urine 95 600 500 Other: Voiding Method Indwelling Catheter Bedside Commode Bedside Commode # Voids 1 # Bowel Movements 1 ABP, PAP, CO, CI - Last Documented Arterial Blood Pressure 156/117 Pulmonary Artery Pressure 33/17 Cardiac Output 4 Cardiac Index 2.6 - Constitutional General appearance: Present: average body habitus, cooperative, no acute distress - EENT Eyes: Present: anicteric sclerae, EOMI, PERRLA - Neck Neck: Present: normal ROM. Absent: lymphadenopathy - Respiratory Respiratory: bilateral: diminished, negative: dullness, rales, rhonchi, wheezing - Cardiovascular Rhythm: regular Heart sounds: normal: S1, S2 Abnormal Heart Sounds: Present: systolic murmur, S3 Gallop - Gastrointestinal General gastrointestinal: Present: normal bowel sounds, soft. Absent: organomegaly, tenderness - Integumentary Integumentary: Present: normal, normal turgor - Neurologic Neurologic: Present: CNII-XII intact - Musculoskeletal Musculoskeletal: Present: gait normal, generalized weakness, strength equal bilaterally - Psychiatric Psychiatric: Present: A&O x's 3, appropriate affect, intact judgment & insight - Labs CBC & Chem 7: 01/07/18 04:32 01/07/18 04:32 Labs: Abnormal Lab Results - Last 24 Hours (Table) 01/06/18 01/07/18 01/07/18 Range/Units 20:37 04:32 04:32 WBC 17.1 H (3.8-10.6) k/uL RBC 2.90 L (3.80-5.40) m/uL Hgb 9.1 L (11.4-16.0) gm/dL Hct 27.6 L (34.0-46.0) % RDW 17.9 H (11.5-15.5) % Neutrophils # 15.8 H (1.3-7.7) k/uL Lymphocytes # 0.5 L (1.0-4.8) k/uL PT 12.4 H (9.0-12.0) sec INR 1.3 H (<1.2) Sodium (137-145) mmol/L Chloride (98-107) mmol/L Carbon Dioxide (22-30) mmol/L BUN (7-17) mg/dL Creatinine (0.52-1.04) mg/dL Glucose (74-99) mg/dL POC Glucose (mg/dL) 170 H (75-99) mg/dL 01/07/18 01/07/18 01/07/18 Range/Units 04:32 07:02 12:12 WBC (3.8-10.6) k/uL RBC (3.80-5.40) m/uL Hgb (11.4-16.0) gm/dL Hct (34.0-46.0) % RDW (11.5-15.5) % Neutrophils # (1.3-7.7) k/uL Lymphocytes # (1.0-4.8) k/uL PT (9.0-12.0) sec INR (<1.2) Sodium 134 L (137-145) mmol/L Chloride 97 L (98-107) mmol/L Carbon Dioxide 32 H (22-30) mmol/L BUN 18 H (7-17) mg/dL Creatinine 0.49 L (0.52-1.04) mg/dL Glucose 125 H (74-99) mg/dL POC Glucose (mg/dL) 131 H 136 H (75-99) mg/dL 01/07/18 Range/Units 17:01 WBC (3.8-10.6) k/uL RBC (3.80-5.40) m/uL Hgb (11.4-16.0) gm/dL Hct (34.0-46.0) % RDW (11.5-15.5) % Neutrophils # (1.3-7.7) k/uL Lymphocytes # (1.0-4.8) k/uL PT (9.0-12.0) sec INR (<1.2) Sodium (137-145) mmol/L Chloride (98-107) mmol/L Carbon Dioxide (22-30) mmol/L BUN (7-17) mg/dL Creatinine (0.52-1.04) mg/dL Glucose (74-99) mg/dL POC Glucose (mg/dL) 162 H (75-99) mg/dL Microbiology - Last 24 Hours (Table) 01/05/18 Unknown Urine Culture - Final Urine,Voided Escherichia coli Assessment and Plan Plan: 1. Status post CABG 3 with LOPES to LAD, SVG to OM, SVG to PDA. Patient has been successfully extubated, continue aggressive pulmonary toileting with nebulized treatment. Continue DuoNeb treatments, Pulmicort, Perforomist. Continue aspirin 81 mg daily, Lipitor 40 mg daily, Plavix 75 mg daily, amiodarone. Long-acting insulin discontinued. NovoLog scale only. 2. CAD post CABG. continue as in #1. 3. Hypertension and hypertensive cardiovascular disease. Continue losartan 75 mg orally once every day, Lopressor 50 mg orally 2 times daily, amlodipine 5 mg daily. 4. Hyperlipidemia. Continue Lipitor 40 mg once every day. 5. Moderate bilateral vascular disease. Continue aspirin and Lipitor for secondary prevention. 6. Mild COPD. Continue aggressive pulmonary toileting with nebulized treatment. 7. 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 Continue with current pain management. 8. Hypothyroidism. Continue patient on Synthroid 25 g orally once every day. 9. Recurrent depression. Continue Wellbutrin 75 mg orally once every day. 10. Syncopal episode with hypotension with acute blood loss anemia occurring after pacer wires were removed. Patient is scheduled for transfusion 2 units packed RBCs. Echocardiogram being done. Monitor hemoglobin closely. Obtain urine culture. 11. Coagulopathy related to liver insufficiency/vitamin K deficiency acute with chronic moderate alcohol use accessory basilar by hemodynamic changes from surgery, immunoglobulin and statin use. Patient is status post oral vitamin K and subsequently IV vitamin K. Dr. Colindres's recommended resuming aspirin and Plavix only once INR is normalized. Patient is scheduled to resume aspirin, Plavix and heparin subcu today as INR is improved. 12. Postoperative paroxysmal atrial fibrillation, unexpected but potential outcome of surgery. Amiodarone was initiated. Continue Lopressor. 13. Hyperglycemia secondary to steroids with no history of diabetes. Continue NovoLog scale Discharge plan: Inpatient rehab at [facility] Impression and plan of care have been directed as dictated by the signing physician. Genny Grossman nurse practitioner acting as scribe for signing physician.
[2018-01-07 20:32] LABS: Glucose,Whole Blood 145 mg/dL (75-99)
[2018-01-07] MEDS: MELATONIN 3 MG TABLET PO SCH (20:34)
[2018-01-07] MEDS: SENNOSIDES-DOCUSATE SODIUM 1 EACH TAB PO SCH (20:34)
[2018-01-08] MEDS: MEROPENEM 1 GM in SODIUM CHLORIDE 0.9% 100 ML IVPB SCH ×3 (00:35→15:50)
[2018-01-08] MEDS: HEPARIN SODIUM,PORCINE 5,000 UNIT/ML 1 ML VIAL SQ SCH ×3 (00:35→15:49)
[2018-01-08 05:16] LABS: Anisocytosis Slight; Basophils % (A) 0 %; Eosinophils % (A) 0 %; HCT 27.6 % (34.0-46.0); HGB 8.8 gm/dL (11.4-16.0); Hypochromasia Slight; Lymphocytes # (A) 0.5 k/uL (1.0-4.8); Lymphocytes % (A) 3 %; MCH 31.6 pg (25.0-35.0); MCHC 31.9 g/dL (31.0-37.0); Macrocytosis Slight; Mean Platelet Volume 6.9; Monocytes # (A) 0.7 k/uL (0-1.0); Monocytes % (A) 4 %; Neutrophils # (A) 15.4 k/uL (1.3-7.7); Neutrophils % (A) 91 %; Platelet Count 245 k/uL (150-450); RBC 2.79 m/uL (3.80-5.40); RDW 18.6 % (11.5-15.5); WBC 16.9 k/uL (3.8-10.6)
[2018-01-08 05:28] LABS: Sodium 132 mmol/L (137-145)
[2018-01-08 05:31] LABS: Anion Gap 2 mmol/L; Blood Urea Nitrogen 25 mg/dL (7-17); Calcium 8.2 mg/dL (8.4-10.2); Carbon Dioxide 33 mmol/L (22-30); Chloride 97 mmol/L (98-107); Glucose 101 mg/dL (74-99)
[2018-01-08] MEDS: LEVOTHYROXINE 25 MCG TAB PO SCH (06:59)
[2018-01-08] MEDS: PANTOPRAZOLE 40 MG TABLET PO SCH (07:00)
[2018-01-08 07:23] LABS: Glucose,Whole Blood 58 mg/dL (75-99)
--- NOTE | 2018-01-08 07:46 | XR ---
EXAMINATION TYPE: XR chest 1V portable DATE OF EXAM: 01/08/2018 HISTORY: Shortness of breath. COMPARISON: 01/07/2018 TECHNIQUE: Single view of the chest is submitted. FINDINGS: Demonstrated are scattered senescent parenchymal change. Patchy basilar infiltrates and pleural effusions persist with mild improved aeration at the left lung base. The heart is stable. Hilar and mediastinal structures are within normal limits. Degenerative changes are seen of the dorsal spine. IMPRESSION: 1. Patchy basilar infiltrates and pleural effusions persist with mild improved aeration at the left lung base.
[2018-01-08] MEDS: FORMOTEROL FUMARATE 20 MCG/2 ML NEBU INHALATION SCH ×2 (07:58→20:19)
[2018-01-08] MEDS: BUDESONIDE 0.5 MG/2 ML NEBU INHALATION SCH ×2 (07:58→20:19)
[2018-01-08] MEDS: IPRATROPIUM-ALBUTEROL 3 ML NEB INHALATION SCH ×4 (07:59→20:19)
[2018-01-08 08:06] LABS: Glucose,Whole Blood 83 mg/dL (75-99)
[2018-01-08] MEDS: INSULIN ASPART 100 UNIT/ML 1 ML 10 ML VIAL SQ SCH ×4 (08:49→20:43)
[2018-01-08] MEDS: FERROUS SULFATE 325 MG TAB PO SCH (08:54)
[2018-01-08] MEDS: NYSTATIN 100,000 UNIT/ML SUSP 500,000 UNIT/5 ML CUP PO SCH ×4 (08:54→20:44)
[2018-01-08] MEDS: THIAMINE 100 MG TAB PO SCH (08:54)
[2018-01-08] MEDS: ASCORBIC ACID 500 MG TAB PO SCH (08:54)
[2018-01-08] MEDS: ATORVASTATIN 40 MG TAB PO SCH (08:54)
[2018-01-08] MEDS: CLOPIDOGREL 75 MG TAB PO SCH (08:55)
[2018-01-08] MEDS: METOPROLOL TARTRATE 25 MG TAB PO SCH (08:55)
[2018-01-08] MEDS: LOSARTAN 50 MG TAB PO SCH (08:55)
[2018-01-08] MEDS: AMIODARONE 200 MG TAB PO SCH ×2 (08:55→20:43)
[2018-01-08] MEDS: ASPIRIN 81 MG PO SCH (08:56)
[2018-01-08] MEDS: buPROPion 75 MG TAB PO SCH (08:57)
[2018-01-08] MEDS: methylPREDNISolone 4 MG TAB TAPER PO SCH (08:57)
--- NOTE | 2018-01-08 10:00 | PN ---
PROGRESS NOTE Mrs Murcia is a 77-year-old female with a history of coronary artery bypass grafting, had episode of paroxysmal atrial fibrillation. She remains in sinus mechanism. She is feeling well. She had an episode of short bursts of atrial fibrillation yesterday. She is back in sinus mechanism, hemodynamically she is stable. She denies any dizziness or palpitation. She denies any nausea. No cough or fever. She continues to be on aspirin 81 mg daily, Lipitor 40 mg daily, amiodarone 400 mg twice a day, Plavix 75 mg daily, losartan 50 mg daily, metoprolol tartrate 25 mg 3 times a day. PHYSICAL EXAMINATION: Blood pressure 137/70 with a heart rate in the 60s. LUNGS: Clear. No wheezes. HEART: Regular rate and rhythm S1, S2. No S3. No rub. ABDOMEN: Soft, nontender. Extremities: No significant edema. LAB DATA: BUN and creatinine 25 and 0.6. Potassium 4.0. Hemoglobin of 8.8. IMPRESSION: 1. Status post coronary artery bypass grafting. 2. Paroxysmal atrial fibrillation back in sinus mechanism. 3. Hyperlipidemia. RECOMMENDATION: We will continue present therapy. Continue increasing her physical activity. Continue incentive spirometry. Hopefully she will be transferred to rehab soon. MMODL / IJN: [id number] /
--- NOTE | 2018-01-08 10:51 | P.PN ---
Subjective Progress Note Date: 01/08/18 Principal diagnosis: Triple-vessel coronary artery disease. Preserved left ventricular function. Chronic degenerative arthritis, History of mild chronic obstructive pulmonary disease with preoperative FEV1 70% of predicted, severe peripheral vascular disease, hypertension, remote history of pulmonary embolism, hypothyroid, and previous tobacco dependence. History of fall from standing preoperatively. POD #11 triple coronary artery bypass grafting using the left internal mammary artery to the left anterior descending coronary artery, a reverse greater saphenous vein graft from the aorta to the first obtuse marginal coronary artery , a reverse greater saphenous vein graft from the aorta to the posterior descending coronary artery, endoscopic harvesting of the left greater saphenous vein, intraoperative transesophageal echocardiogram and epi-aortic scanning, intraoperative graft flow measurements using the [employer] system. Postoperative acute blood loss anemia, an unexpected outcome. Postoperative paroxysmal atrial fibrillation and unexpected but potential outcome of surgery. Postoperative urinary tract infection with a positive urine culture showing Escherichia coli, an unexpected outcome of surgery. The patient is sitting up to the bedside chair. She is in no acute distress. She is alert and oriented 3. She denies any complaints of pain or shortness of breath at this time. Her daughter Yecenia are at her bedside, her questions were answered to the best ability. She remains having scant serosanguineous drainage from her previous left chest tube insertion site, a collection devices in place for the fluid. Objective - Vital Signs Vital signs: Vital Signs Temp 98.1 F 01/08/18 04:00 Pulse 68 01/08/18 08:18 Resp 15 01/08/18 06:00 BP 146/68 01/08/18 06:00 Pulse Ox 96 01/08/18 06:00 Intake & Output 01/07/18 01/08/18 01/08/18 18:59 06:59 18:59 Intake Total 450 550 100 Output Total 500 300 Balance -50 250 100 Weight 65.6 kg Intake: IV 100 Meropenem 1 gm In Sodium 100 Chloride 0.9% 100 ml @ 200 mls/hr IVPB Q8HR JENNIFER Rx#:[id number] Intake, IV Titration 100 Amount Meropenem 1 gm In Sodium 100 Chloride 0.9% 100 ml @ 200 mls/hr IVPB Q8HR JENNIFER Rx#:[id number] Oral 450 450 Output: Urine 500 300 Other: Voiding Method Bedside Commode Bedside Commode Bedside Commode # Voids 1 # Bowel Movements 1 ABP, PAP, CO, CI - Last Documented Arterial Blood Pressure 156/117 Pulmonary Artery Pressure 33/17 Cardiac Output 4 Cardiac Index 2.6 - Constitutional General appearance: Present: cooperative, no acute distress, obese - Respiratory Details: Lungs sounds essentially clear to her bilateral upper lobes, diminished bilateral bases. Respirations are symmetrical and nonlabored. Oxygen saturation are 96% on 2 L nasal cannula. She is achieving 500 mL on her incentive spirometry. - Cardiovascular Details: Regular rhythm and rate. S1 and S2 present, negative for S3, gallop or murmur. Sternum is stable. Bedside telemetry showing normal sinus rhythm heart rate 65. Heart hugger is in place and she is demonstrating appropriate use. Knee- high AMINTA hose and sequential compression devices in place to bilateral lower extremities. No edema present. - Gastrointestinal Gastrointestinal Comment(s): Abdomen is soft, nontender and nondistended. Active bowel sounds. Abdominal quadrant. Bowel movement yesterday 01/07/2018. Tolerating oral intake. No guarding rigidity. - Genitourinary Genitourinary Comment(s): Voiding clear yellow urine. 300 mL output in the last 8 hours. - Integumentary Integumentary Comment(s): Skin is warm and dry. No clubbing or cyanosis present. Midline sternal incision clean dry and approximated. No drainage or redness present. Left leg EVH site clean dry and approximated. Ecchymotic areas scattered to her bilateral upper and lower extremities. Small abrasion to her left lower extremity and to her right forearm. Scant serosanguineous drainage. Dressing is clean dry and intact. - Neurologic Neurologic: Present: CNII-XII intact - Musculoskeletal Musculoskeletal: Present: gait normal, generalized weakness, strength equal bilaterally - Psychiatric Psychiatric: Present: A&O x's 3, appropriate affect, intact judgment & insight - Allied health notes Allied health notes reviewed: nursing - Labs CBC & Chem 7: 01/08/18 04:42 01/08/18 04:42 Labs: Abnormal Lab Results - Last 24 Hours (Table) 01/07/18 01/07/18 01/07/18 Range/Units 12:12 17:01 20:18 WBC (3.8-10.6) k/uL RBC (3.80-5.40) m/uL Hgb (11.4-16.0) gm/dL Hct (34.0-46.0) % RDW (11.5-15.5) % Neutrophils # (1.3-7.7) k/uL Lymphocytes # (1.0-4.8) k/uL Sodium (137-145) mmol/L Chloride (98-107) mmol/L Carbon Dioxide (22-30) mmol/L BUN (7-17) mg/dL Glucose (74-99) mg/dL POC Glucose (mg/dL) 136 H 162 H 145 H (75-99) mg/dL Calcium (8.4-10.2) mg/dL 01/08/18 01/08/18 01/08/18 Range/Units 04:42 04:42 07:09 WBC 16.9 H (3.8-10.6) k/uL RBC 2.79 L (3.80-5.40) m/uL Hgb 8.8 L (11.4-16.0) gm/dL Hct 27.6 L (34.0-46.0) % RDW 18.6 H (11.5-15.5) % Neutrophils # 15.4 H (1.3-7.7) k/uL Lymphocytes # 0.5 L (1.0-4.8) k/uL Sodium 132 L (137-145) mmol/L Chloride 97 L (98-107) mmol/L Carbon Dioxide 33 H (22-30) mmol/L BUN 25 H (7-17) mg/dL Glucose 101 H (74-99) mg/dL POC Glucose (mg/dL) 58 L (75-99) mg/dL Calcium 8.2 L (8.4-10.2) mg/dL Microbiology - Last 24 Hours (Table) 01/05/18 Unknown Urine Culture - Final Urine,Voided Escherichia coli - Imaging and Cardiology Chest x-ray: report reviewed, image reviewed Assessment and Plan (1) History of fall Current Visit: Yes Status: Acute Code(s): Z91.81 - HISTORY OF FALLING SNOMED Code(s): 637951715 (2) CAD (coronary artery disease) Current Visit: Yes Status: Chronic Code(s): I25.10 - ATHSCL HEART DISEASE OF [place] CORONARY ARTERY W/O ANG PCTRS SNOMED Code(s): 15496040 (3) Hypertension Current Visit: Yes Status: Chronic Code(s): I10 - ESSENTIAL (PRIMARY) HYPERTENSION SNOMED Code(s): 50394163 (4) Peripheral vascular disease Current Visit: Yes Status: Chronic Code(s): I73.9 - PERIPHERAL VASCULAR DISEASE, UNSPECIFIED SNOMED Code(s): 378020118 (5) Facial contusion Current Visit: No Status: Inactive Code(s): S00.83XA - CONTUSION OF OTHER PART OF HEAD, INITIAL ENCOUNTER SNOMED Code(s): 934831298 (6) History of pulmonary embolism Current Visit: No Status: Resolved Code(s): Z86.711 - PERSONAL HISTORY OF PULMONARY EMBOLISM SNOMED Code(s): 009419219 (7) Tobacco dependence in remission Current Visit: No Status: Resolved Code(s): F17.201 - NICOTINE DEPENDENCE, UNSPECIFIED, IN REMISSION SNOMED Code(s): 420818081 Plan: 1. Continue low-dose aspirin, Plavix, statin and beta jaida. We will increase her metoprolol tartrate 50 mg by mouth twice a day. 2. Wean O2 as tolerated, encourage incentive spirometry 10 times every hour while awake. 3. Bronchodilators, steroids management per Dr. Child's recommendations. 4. Increase activity as tolerated. Out of bed for all meals. PT/OT/cardiac rehab following. 5. Will monitor daily labs and chest x-rays. 6. Continue Cozaar 50 mg by mouth daily. 7. Pain control with current medication regimen. 8. GI prophylaxis with Protonix. DVT prophylaxis with SCDs and subcu heparin. 9. Continue Amiodarone 400 mg by mouth twice a day. 10. Continue meropenem for urine culture showing Escherichia coli. 11. Anticipate discharged to inpatient rehab within the next 24 hours. 12. More recommendations to follow based on her clinical course. Transfer to [address] [place] [id number] [facility] when bed available. Time with Patient: Greater than 30
[2018-01-08 11:36] LABS: Glucose,Whole Blood 97 mg/dL (75-99)
--- NOTE | 2018-01-08 12:31 | P.PN ---
Subjective Progress Note Date: 01/08/18 Principal diagnosis: Status post CABG for triple vessel coronary artery disease, postoperative day # 11 This is a 77-year-old female patient, known history of COPD with a preop FEV1 of 70% of predicted, and addition to coronary artery disease, peripheral vascular disease and hypertension, who was experiencing symptoms of exertional dyspnea and angina. She underwent stress test and she was found to have reversible ischemia and based on that the patient underwent a cardiac catheterization and she was found to have extreme calcified right and left coronary arteries, severe triple-vessel disease, severe disease involving the proximal RCA, severe disease involving the ostial circumflex and severe disease involving the ostial left anterior descending coronary artery. Based on this, the patient was referred for bypass surgery and the patient underwent three- vessel bypass with LOPES to LAD. Preop echocardiogram showed a preserved LV function with an ejection fraction of 55-60%. The patient has mild concentric left ventricular hypertrophy. I'm seeing this patient immediately after she arrived to the intensive care unit. She is sedated, comfortable likely distress. She is on a mechanical ventilator. She is an assist-control mode of ventilation, at a rate of 12, tidal volume of 400 with an FiO2 of 100% and PEEP of 5. Chest x-ray showed adequate expansion of both lungs. The patient is to mediastinal and 1 pleural chest tube on the left. Output is minimal at this point. There is no evidence of any air leak. There is no evidence of pneumothorax. The the blood gas showed a pH of 7.31 with a pCO2 of 46 and FiO2 is more than 400. Based on these results, increased respiratory rate up to 18. And I also drop the FiO2 down to 50%. She is producing adequate amount of urine output. She arrived to the ICU from the operating room with 12 mics of levo fed and currently she is off pressors. Cardiac output is at 2.6 with an index of 4.4. Pulmonary artery pressures are nonelevated. On 12/29/2017, the patient is postop day #1. The patient was kept intubated and mechanically ventilated overnight as the patient was having issues with increased output from the chest tubes, anemia, low cardiac output and difficulties with her weaning parameters overnight, the patient was given a total of 2 units of packed RBC 4 hemoglobin of 5.2. Subsequent hemoglobin came up to 6.4 and following that was up down to 5.8. The patient was given an additional 2 units of packed RBC this morning. Doppler from the chest tubes have decline. Overall output has been 800 mL of the mediastinal chest tubes and at times cc from the pleural chest tube as the patient arrived from the operating room. The patient was also given fresh frozen plasma total of 2 units. The patient was kept sedated with Diprivan and she remained calm and comfortable. There were 2 attempts to wean this patient a mechanical ventilator overnight. Her weaning parameters of borderline. Subsequent blood gases showed respiratory acidosis and I did not feel comfortable extubating this patient. Based on this, the patient was kept intubated on mechanical ventilator throughout the night. This morning, following transfusion with 2 units of packed RBC, the patient seemed to hemodynamically stable and she was doing okay. As such she was taken off the sedation and she was given a spelled his breathing trial with a pressure support of 5 and a PEEP of 5. His subsequent blood gases showed a mild component of respiratory acidosis with pCO2 of 50 and pH of 7.30. At that point, the patient was awake and she was following commands. She did not show any signs of respiratory distress. I decide to extubate this patient to a nasal cannula. Postextubation, the patient was followed up very closely. She was noted to bronchospastic and wheezy. Based on that, she was given IV Solu-Medrol. Following that she was placed on a BiPAP at a pressure of 14/5 cm of water with an FiO2 of 50%. The most recent blood gases showed a pH of 7.34 with a pCO2 of 42 and pO2 of 65 and this was done and FiO2 of 40%. The patient was somewhat restless and was getting agitated in bed. Based on that, I put her on Precedex and currently it is at 0.4 g per KG per hour. The chest x-ray from earlier this morning showed small better pleural effusion. There was cardiomegaly. [place] catheter was in place. Rest of the chest were all in place. There was some limited bibasilar consolidation. She is afebrile. She is hemodynamically stable and currently the cardiac index is above 2.. Most recent hemoglobin is at 7.2. She is afebrile. She is on no pressors at this point in time. Cardiac rhythm is sinus. On 12/30/2017 the patient is postop day #2. As noted, and as mentioned earlier , the patient was extubated yesterday and postextubation the patient became bronchospastic and wheezy and she had significant respiratory distress. At that point she was started on BiPAP for respiratory support at a pressure of 14/ 6 cm of water. FiO2 was kept at 50%. The patient had some difficulties initially to tolerate the BiPAP. She was restarted on Precedex and the dose was titrated to control her agitation. With these changes, she did extremely well and overnight she was kept on a BiPAP and in the center she was placed on a combination of bronchodilators steroids which optimize her COPD exacerbation. This morning, the patient was taken off the BiPAP and she was placed on 5 L of oxygen nasal cannula. The chest x-ray from today shows a small right-sided pleural effusion. Chest tubes are all in place and output is diminished compared to yesterday with a stable hemoglobin. Hemodynamically, the patient is on no pressors. Cardiac index is at 1.9. She is producing adequate urine output. Hemoglobin is also stable. Based on all this, I weaned her off the Precedex earlier this morning and subsequently discontinued the BiPAP and currently she sometimes of oxygen by nasal cannula. She is breathing easier. She is less short of breath compared to yesterday. Chest tubes are all in place. Sternum stable clean and intact. The patient has a skin laceration left lower extremity and local wound care is being done and the LIZABETH drain is also in place. She is moving all 4 extremities without any limitation. No nausea. No vomiting. No emesis. No cardiac arrhythmias. She has a hemoglobin of 7.4. White cell count is nonelevated. Blood work and electrodes are all within normal limits earlier this morning. Blood sugars of 118. On 12/31/2017, I'm seeing this patient for a follow-up. Our efforts have succeeded in weaning patient off the BiPAP. Note that yesterday she became short of breath and she had to be placed on BiPAP with low dose Precedex for discomfort and agitation and restlessness. This morning she was weaned off and she is currently on 5 L of oxygen by nasal cannula sitting up on a recliner. Extremities no chest tubes are in place. The left pleural chest tube in the right pleural chest were also in place. The patient has put out approximately 80 mL from the left-sided pleural chest tube and frontal 30 mL over the past 24 hours. He still chest tubes have drain 60 mL over the past 8 hours and 12 mL over the past 24 hours. We're considering removal at least on the chest tube. The patient is pulling approximately 500 mL on the incentive spirometer. The LIZABETH drains in place in the left lower extremity and output has been around 48 and she is over the past 8 hours. There is a skin laceration which is being taken care of by local wound care. Sternum stable clean and intact. Hemodynamically stable. A dose of Lasix 40 mg IV push was given today. The cardiac rhythm is sinus. The patient is less bronchus spastic and wheezy compared to yesterday. She remains on DuoNeb neb treatments around the clock, she is also on a combination with as a night and Perforomist nebulized treatments twice a day and IV Solu Medrol. Hemoglobin from today is 6.9 and we' re holding of any blood transfusions for now. Patient is currently on Levemir 12 units in addition to coverage. On 01/01/2018, I'm seeing this patient for a follow-up. She remains in the intensive care unit. She is currently on oxygen by nasal cannula. Breathing is easier. Less short of breath. Chest tubes will be removed today and output has been minimal for now and the patient's chest x-ray showing small better pleural effusion more so on the right and the patient was given a dose of Lasix. Sternum stable clean and intact. Cardiac rhythm is sinus. The patient is using incentive spirometer and she is pulling approximately 500 mL she is equivalent to yesterday. Note that the left-sided chest tube has drained approximately 105 over the past 8 hours and to 45 over the past 24 hours. As for the mediastinal chest tubes have drain 60 mL over the past 8 hours and 140s over the past 24 hours. The fluid balance is -1.3 L over the past 24 hours. The [place] catheter has been removed. The patient is on bronchodilators. The patient is on systemic steroids. Hemoglobin is stable at 7.9. Normal renal function for now. No altered mentation. She is awake and following commands and answering questions appropriately. Chest x-ray was reviewed. Reevaluated today on 01/02/2018, patient remains on 5 L nasal cannula, O2 saturation is marginal, patient remains to do poorly with incentive spirometry, intermittent episodes of confusion at night was noted. Chest x-ray did show small bilateral pleural effusions, patient remains on diuretics. Labs were all reviewed, renal profile is normal. Hemoglobin is 7.3. Patient continues to have some dyspnea on exertion. Reevaluated today on 01/03/2018, remains on 5 L nasal cannula, patient is doing well, asymptomatic, seems to be more awake and active this morning. She is doing a bit better with incentive spirometry. And definitely no episodes of confusion today. Chest x-ray continues to show small bilateral effusions, and the patient remains on diuretics. Hemoglobin today is 7.7. Electrodes are normal renal profile is relatively normal. Chest x-ray was reviewed. Reevaluated today on 01/04/2018, patient is doing well, she is actually an overflow in the ICU from [facility]. No major issues overnight, agent remains on few liters nasal cannula, in no distress, asymptomatic, and no confusion or delirium. Labs and chest x-ray were reviewed, minimal left basilar atelectasis and small tiny effusion noted. CBC is relatively normal hemoglobin is holding at 8 electrolytes and renal profile are normal. Reevaluated today on 01/05/2018, patient remains in the ICU, she had an episode yesterday of confusion, associated with syncope and hypotension. Hemoglobin yesterday was 5.9, and the patient received 2 units of packed RBCs. Today the patient seems to be doing better, remains on BiPAP which I plan to change to a nasal cannula, chest x-ray is showing slightly larger left-sided pleural effusion. Patient was also placed on amiodarone 4 atrial fibrillation with rate in the range of low 90s. Overall the patient remains marginal, and I don' t believe the patient isn't ready to be transferred out of the ICU yet. WBC count today is 15.0 hemoglobin is 9.7 and electrolytes and renal profile are normal. Chest x-ray again was reviewed and it showed atelectasis and left- sided pleural effusion. Rather small. Reevaluated today on 01/06/2018, patient is doing well, on nasal cannula, asymptomatic, no cough no wheezing no shortness of breath, and mentally he seems to be more appropriate, no confusion today whatsoever. She is alert oriented 3, no further episodes of cardiac arrhythmia, she is compliant with incentive spirometry, and her amiodarone drip is being addressed by cardiology. Her bruising and anemia is being addressed by hematology. Hemoglobin today is 8.8. Electrolytes are normal renal profile is normal. Liver enzymes are minimally elevated. Bilirubin is 2.0. Chest x-ray continues to show small left pleural effusion and atelectasis, not large enough to consider thoracentesis on the left side. Reevaluated today on 01/07/2018, remains in the ICU, her mental status seems to be gradually improving, today she is the best I have seen her. She is not confused at all, she denies any shortness of breath no cough no wheezing. Patient is presently on overflow from [facility], but if she remains in the ICU tomorrow, she could be sent to rehab probably early next week. All her labs were reviewed chest x-ray was reviewed and basically unchanged Reevaluated today on 01/08/2018, remains in the ICU as an overflow from [facility]. Patient is doing well, she is much more alert, oriented, not confused anymore. Mental status has dramatically improved over the last couple of days. She was noted to have UTI secondary to ESBL, hence I recommended Merrem which was started yesterday. Patient is now sitting in bedside chair asymptomatic, and not in any distress. Denies any cough wheezing shortness of breath or chest pain. Patient is excited about possibly sending her to rehab in the next 24 hours. Continues to have slight serosanguineous drainage from her previous left-sided chest tube site insertion. And the collection device in place for the fluid. Objective - Vital Signs Vital signs: Vital Signs Temp 98.1 F 01/08/18 04:00 Pulse 77 01/08/18 11:43 Resp 15 01/08/18 06:00 BP 146/68 01/08/18 06:00 Pulse Ox 96 01/08/18 06:00 Intake & Output 01/07/18 01/08/18 01/08/18 18:59 06:59 18:59 Intake Total 450 550 100 Output Total 500 300 Balance -50 250 100 Weight 65.6 kg Intake: IV 100 Meropenem 1 gm In Sodium 100 Chloride 0.9% 100 ml @ 200 mls/hr IVPB Q8HR [facility] Rx#:[id number] Intake, IV Titration 100 Amount Meropenem 1 gm In Sodium 100 Chloride 0.9% 100 ml @ 200 mls/hr IVPB Q8HR [facility] Rx#:[id number] Oral 450 450 Output: Urine 500 300 Other: Voiding Method Bedside Commode Bedside Commode Bedside Commode # Voids 1 # Bowel Movements 1 ABP, PAP, CO, CI - Last Documented Arterial Blood Pressure 156/117 Pulmonary Artery Pressure 33/17 Cardiac Output 4 Cardiac Index 2.6 - Exam Physical Exam: Revealed a 77-year-old female, in no distress. Head: Atraumatic, normocephalic. HEENT:[Neck is supple.] [No neck masses.] [No thyromegaly.] [No JVD.] No icterus, moist mucous membranes. Chest: [Diminished breath sounds and dullness at the bases bilaterally, no rhonchi and no wheezes. No chest wall tenderness. Symmetrical chest expansion. ] Scant serosanguineous drainage from previous left sided chest tube insertion Cardiac Exam: [Normal S1 and S2, no S3 gallop, no murmur.] Abdomen: [Soft, nontender, no megaly, no rebound, no guarding, normal bowel sounds.] Extremities: Both were wrapped with Mario bandage, trace of bipedal edema. Neurological Exam: Alert oriented 3, no gross focal neurologic deficits. Psychiatric: Normal mood, affect and mental status examination. Skin: Scattered areas of ecchymosis and bruising bilaterally. - Labs CBC & Chem 7: 01/08/18 04:42 01/08/18 04:42 Labs: Abnormal Lab Results - Last 24 Hours (Table) 01/07/18 01/07/18 01/08/18 Range/Units 17:01 20:18 04:42 WBC 16.9 H (3.8-10.6) k/uL RBC 2.79 L (3.80-5.40) m/uL Hgb 8.8 L (11.4-16.0) gm/dL Hct 27.6 L (34.0-46.0) % RDW 18.6 H (11.5-15.5) % Neutrophils # 15.4 H (1.3-7.7) k/uL Lymphocytes # 0.5 L (1.0-4.8) k/uL Sodium (137-145) mmol/L Chloride (98-107) mmol/L Carbon Dioxide (22-30) mmol/L BUN (7-17) mg/dL Glucose (74-99) mg/dL POC Glucose (mg/dL) 162 H 145 H (75-99) mg/dL Calcium (8.4-10.2) mg/dL 01/08/18 01/08/18 Range/Units 04:42 07:09 WBC (3.8-10.6) k/uL RBC (3.80-5.40) m/uL Hgb (11.4-16.0) gm/dL Hct (34.0-46.0) % RDW (11.5-15.5) % Neutrophils # (1.3-7.7) k/uL Lymphocytes # (1.0-4.8) k/uL Sodium 132 L (137-145) mmol/L Chloride 97 L (98-107) mmol/L Carbon Dioxide 33 H (22-30) mmol/L BUN 25 H (7-17) mg/dL Glucose 101 H (74-99) mg/dL POC Glucose (mg/dL) 58 L (75-99) mg/dL Calcium 8.2 L (8.4-10.2) mg/dL Microbiology - Last 24 Hours (Table) 01/05/18 Unknown Urine Culture - Final Urine,Voided Escherichia coli Assessment and Plan Assessment: Impression: Status post triple-vessel CABG postoperative day #11` Bilateral pleural effusions with postoperative changes, expected post CABG. And areas of atelectasis/expected post CABG. Acute on chronic hypoxic respiratory failure multifactorial secondary to COPD and bilateral pleural effusion. Multiple comorbidities including underlying COPD, chronic back pain, hypothyroidism, hypertension,. New onset atrial fibrillation, on amiodarone, and her anticoagulation therapy is being addressed by hematology on the case. Recommendation: Continue present supportive care measures, continue incentive spirometry, ambulation, and plans are in progress for possible rehab referral in the next 24 hours. In the meantime the patient remains as a [facility] overflow in the ICU. We'll continue to follow. Time with Patient: Less than 30
--- NOTE | 2018-01-08 17:10 | P.PN ---
Subjective Progress Note Date: 01/08/18 This is a 77-year-old female one of my patient with a previous medical history significant for COPD, coronary artery disease, peripheral vascular disease and hypertension, who was experiencing symptoms of exertional dyspnea and angina. She underwent stress test and she was found to have reversible ischemia and based on that the patient underwent a cardiac catheterization and she was found to have extreme calcified right and left coronary arteries, severe triple-vessel disease, severe disease involving the proximal RCA, severe disease involving the ostial circumflex and severe disease involving the ostial left anterior descending coronary artery. Based on this, the patient was referred for bypass surgery and the patient underwent three- vessel bypass with LOPES to LAD, SVG to OM and SVG to PDA, Preop echocardiogram showed a preserved LV function with an ejection fraction of 55-60%. The patient has mild concentric left ventricular hypertrophy, patient was admitted to intensive care unit she is currently on assist mode ventilation with FiO2 of 40% tidal volume of 400 and PEEP of 5, patient was slightly agitated earlier today in the morning and this is delayed her expiration this will be reevaluated in the next few hours hopefully she'll be extubated her on today. 12/30: Patient has been successfully extubated. She remains in the intensive care unit. Patient did have some anxiety issues and a sitter is at the bedside. She states that she is feeling "droggy" but is quite talkative. She denies having any headache. Positive cough. She denies passing any gas. No bowel movement. Her chest pain is currently controlled. She denies any shortness of breath. Chest tubes, Segovia, right-sided cordis remain in place. Patient has a LIZABETH drain to the left lower extremity. Blood sugars are running in the low 100s and we will plan to transition her over to Levemir and NovoLog scale and discontinue insulin drip. Hemoglobin is 7.4, platelet count 82. patient is status post total of 4 units packed RBCs and 2 fresh frozen plasma, 1 platelet. 01/02: Patient remains in the intensive care unit. Her blood sugars are running 84-108 and Levemir decreased to 8 units and held for today. She is currently on oxygen at 4 L nasal cannula pulse oxing 97%. Over the weekend, Segovia catheter and chest tubes were removed. She did have some confusion during the night with concern for owners. We will add in melatonin for sleep. Patient is scheduled for transfer to selective care. 01/03: Patient's blood sugars were running low and we will discontinue the long- acting Levemir and continue only NovoLog scale. Patient is only reaching 500 on incentive spirometry. She is eating okay and has had formed stools. She denies having any chest pain. She does complain of feeling tired and fatigues easily. She apparently was a little agitated during the night and got herself up into a chair alone but no major problems. Patient is now a selective care overflow. 01/04: Patient has been evaluated by Dr. Dorantes with plan for transfer to the [facility] for inpatient rehab. Patient is a 2 person assist and doubt the patient appropriate for inpatient rehab. Patient continues to wait for bed in selective care unit. Solu-Medrol has been changed to Medrol Dosepak. She was cleared for discharge by pulmonary medicine. Pulse ox is 94% on 4 L. White count is 14.6, hemoglobin 8.0, platelet count 195. Unfortunately , after patient had pacer wires removed she became bradycardic and unresponsive. She was given 1 L of IV fluids, she is currently on BiPAP and echocardiogram has been ordered with concern for internal bleeding. Patient is noted to have a hematoma to the left upper inner thigh but no other sources of bleeding noted. The patient had a drop in her hemoglobin 5.9 is scheduled for transfusion today. Patient denies having shortness of breath or chest pain. She does complain of pain in the left lower leg. 01/05: Patient has had INR of 2 since arrival. Daughter is at bedside and states that the patient does not take any anticoagulants however she does drink 3-4 beers daily which she does try to hide from family. Patient has been placed on amiodarone related to atrial fibrillation. She is also had some confusion during the night and a urine specimen was sent. Cozaar and Norvasc are held due to blood pressure. Blood pressures are ranging in the low 100s to the 1 teens. Heart rate is 62. Pulse ox saturation is 95% on 4 L of nasal cannula. Urinary output is 40-60 ML's per hour. 01/06- patient remains in the intensive care unit most likely will go to [facility] for inpatient rehab on Tuesday. She is getting up out of bed and planning for shower this morning. She is alert this morning she states she slept well last night. Patient was seen by Dr. Colindres regarding coagulopathy related to liver insufficiency/vitamin K deficiency acute with chronic moderate alcohol use accessory basilar by hemodynamic changes from surgery, immunoglobulin and statin use. Patient is status post oral vitamin K and subsequently IV vitamin K. Dr. Colindres's recommended resuming aspirin and Plavix only once INR is normalized. INR is 1.3 and patient will be resumed back on Plavix, aspirin and subcu heparin today. Hemoglobin is at 8.8, white count 15.2 , creatinine 0.47. Blood sugars are running between 132 and 200. 01/07: Patient is currently in ICU as a civil selective care overflow. She is sitting up in a chair without any difficulties. She is alert and appropriate at this time. Patient will most likely go to [facility] for inpatient rehab on Tuesday. Patient denies any chest pain or difficulty breathing or fever. WBC 17.1, hemoglobin 9.1, INR was 1.3, sodium 134, BUN 18 creatinine 0.49. Plavix aspirin and subcu heparin have been resumed. She has had some episodes of atrial fibrillation which she received amiodarone bolus for resulting in low blood pressure. Patient does not have any complaints of dizziness or lightheadedness. 01/08 patient examined bedside in ICU. She is doing well vitals are stable with a temp of 97.2 pulse rate 63. Blood pressure 1:30/61. Patient continues to have leukocytosis of 16.9, hemoglobin 8.8, sodium 132, chloride 97, carbon dioxide 33 BUN 25 she did have a hypoglycemic event this morning 58 of glucose. Chest x-ray this morning shows a patchy basilar infiltrate and pleural effusion at the left with slight improvement. Continues to get mammogram for ESBL UTI. Slight serosanguineous drainage from a previous left chest tube site insertion. Metoprolol increased to 50 mg twice daily possible discharge to inpatient rehab tomorrow Review Of Systems: Constitutional: No fever, no chills, no night sweats. No weight change. improved lethargy. No daytime sleepiness. EENT: No headache. No blurred vision or double vision, no loss of vision. No loss of Hearing, no ringing in the ears, no dizziness. No nasal drainage or congestion. No epistaxis. No sore throat. Lungs: No shortness of breath, +cough, + sputum production. No wheezing. Cardiovascular: No chest pain (controlled), no lower extremity edema. No palpitations. No paroxysmal nocturnal dyspnea. No orthopnea. No lightheadedness or dizziness. + syncopal episodes. Abdominal: No abdominal pain. No nausea, vomiting. No diarrhea. No constipation. No bloody or tarry stools. No loss of appetite. Genitourinary: No dysuria, increased frequency, urgency. No urinary retention. Musculoskeletal: No myalgias. + muscle weakness, no gait dysfunction, no frequent falls. No back pain. No neck pain. Integumentary: No wounds, no lesions. No rash or pruritus. No unusual bruising. No change in hair or nails. Neurologic: No aphasia. No facial droop. No change in mentation. No head injury. No headache. No paralysis. No paresthesia. Psychiatric: No depression. No anxiety. No mood swings. Endocrine: No abnormal blood sugars. No weight change. No excessive sweating or thirst. Objective - Vital Signs Vital signs: Vital Signs Temp 97.2 F L 01/08/18 12:00 Pulse 64 01/08/18 15:52 Resp 18 01/08/18 12:00 BP 135/61 01/08/18 12:00 Pulse Ox 97 01/08/18 12:00 Intake & Output 01/07/18 01/08/18 01/08/18 18:59 06:59 18:59 Intake Total 450 550 100 Output Total 500 300 200 Balance -50 250 -100 Weight 65.6 kg Intake: IV 100 Meropenem 1 gm In Sodium 100 Chloride 0.9% 100 ml @ 200 mls/hr IVPB Q8HR JENNIFER Rx#:[id number] Intake, IV Titration 100 Amount Meropenem 1 gm In Sodium 100 Chloride 0.9% 100 ml @ 200 mls/hr IVPB Q8HR JENNIEFR Rx#:[id number] Oral 450 450 Output: Urine 500 300 200 Other: Voiding Method Bedside Commode Bedside Commode Bedside Commode # Voids 1 # Bowel Movements 1 1 ABP, PAP, CO, CI - Last Documented Arterial Blood Pressure 156/117 Pulmonary Artery Pressure 33/17 Cardiac Output 4 Cardiac Index 2.6 - Exam - Constitutional General appearance: Present: average body habitus, cooperative, no acute distress - EENT Eyes: Present: anicteric sclerae, EOMI, PERRLA - Neck Neck: Present: normal ROM. Absent: lymphadenopathy - Respiratory Respiratory: bilateral: diminished, negative: dullness, rales, rhonchi, wheezing - Cardiovascular Rhythm: regular Heart sounds: normal: S1, S2 Abnormal Heart Sounds: Present: systolic murmur, S3 Gallop - Gastrointestinal General gastrointestinal: Present: normal bowel sounds, soft. Nontender - Integumentary Integumentary: Present: normal, normal turgor - Neurologic Neurologic: Present: CNII-XII intact - Musculoskeletal Musculoskeletal: Present: gait normal, generalized weakness, strength equal bilaterally - Psychiatric Psychiatric: Present: A&O x's 3, appropriate affect, intact judgment & insight - Labs CBC & Chem 7: 01/08/18 04:42 01/08/18 04:42 Labs: Abnormal Lab Results - Last 24 Hours (Table) 01/07/18 01/07/18 01/08/18 Range/Units 17:01 20:18 04:42 WBC 16.9 H (3.8-10.6) k/uL RBC 2.79 L (3.80-5.40) m/uL Hgb 8.8 L (11.4-16.0) gm/dL Hct 27.6 L (34.0-46.0) % RDW 18.6 H (11.5-15.5) % Neutrophils # 15.4 H (1.3-7.7) k/uL Lymphocytes # 0.5 L (1.0-4.8) k/uL Sodium (137-145) mmol/L Chloride (98-107) mmol/L Carbon Dioxide (22-30) mmol/L BUN (7-17) mg/dL Glucose (74-99) mg/dL POC Glucose (mg/dL) 162 H 145 H (75-99) mg/dL Calcium (8.4-10.2) mg/dL 01/08/18 01/08/18 Range/Units 04:42 07:09 WBC (3.8-10.6) k/uL RBC (3.80-5.40) m/uL Hgb (11.4-16.0) gm/dL Hct (34.0-46.0) % RDW (11.5-15.5) % Neutrophils # (1.3-7.7) k/uL Lymphocytes # (1.0-4.8) k/uL Sodium 132 L (137-145) mmol/L Chloride 97 L (98-107) mmol/L Carbon Dioxide 33 H (22-30) mmol/L BUN 25 H (7-17) mg/dL Glucose 101 H (74-99) mg/dL POC Glucose (mg/dL) 58 L (75-99) mg/dL Calcium 8.2 L (8.4-10.2) mg/dL Microbiology - Last 24 Hours (Table) 01/05/18 Unknown Urine Culture - Final Urine,Voided Escherichia coli Assessment and Plan Plan: 1. Status post CABG 3 with LOPES to LAD, SVG to OM, SVG to PDA. Patient has been successfully extubated, continue aggressive pulmonary toileting with nebulized treatment. Continue DuoNeb treatments, Pulmicort, Perforomist. Continue aspirin 81 mg daily, Lipitor 40 mg daily, Plavix 75 mg daily, amiodarone. Long-acting insulin discontinued. NovoLog scale only. 2. CAD post CABG. continue as in #1. 3. Hypertension and hypertensive cardiovascular disease. Continue losartan 75 mg orally once every day, Lopressor 50 mg orally 2 times daily, amlodipine 5 mg daily. 4. Hyperlipidemia. Continue Lipitor 40 mg once every day. 5. Moderate bilateral vascular disease. Continue aspirin and Lipitor for secondary prevention. 6. Mild COPD. Continue aggressive pulmonary toileting with nebulized treatment. 7. 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 Continue with current pain management. 8. Hypothyroidism. Continue patient on Synthroid 25 g orally once every day. 9. Recurrent depression. Continue Wellbutrin 75 mg orally once every day. 10. Syncopal episode with hypotension with acute blood loss anemia occurring after pacer wires were removed. Patient is scheduled for transfusion 2 units packed RBCs. Echocardiogram being done. Monitor hemoglobin closely. Obtain urine culture. 11. Coagulopathy related to liver insufficiency/vitamin K deficiency acute with chronic moderate alcohol use accessory basilar by hemodynamic changes from surgery, immunoglobulin and statin use. Patient is status post oral vitamin K and subsequently IV vitamin K. Dr. Colindres's recommended resuming aspirin and Plavix only once INR is normalized. Patient is scheduled to resume aspirin, Plavix and heparin subcu today as INR is improved. 12. Postoperative paroxysmal atrial fibrillation, unexpected but potential outcome of surgery. Amiodarone was initiated. Continue Lopressor. 13. Hyperglycemia secondary to steroids with no history of diabetes. Continue NovoLog scale 14 E ESBL UTI continue Merrem 15 bilateral pleural effusions expected outcome of CABG. Chest x-ray shows improvement in pleural effusion Discharge plan: Inpatient rehab at [facility]
[2018-01-08 17:34] LABS: Glucose,Whole Blood 136 mg/dL (75-99)
[2018-01-08 20:23] LABS: Glucose,Whole Blood 176 mg/dL (75-99)
[2018-01-08] MEDS: MELATONIN 3 MG TABLET PO SCH (20:42)
[2018-01-08] MEDS: ACETAMINOPHEN TAB 325 MG TAB PO PRN (20:43)
[2018-01-08] MEDS: SENNOSIDES-DOCUSATE SODIUM 1 EACH TAB PO SCH (20:43)
[2018-01-08] MEDS ORDERED: METOPROLOL TARTRATE 50 MG TAB PO SCH (21:00)
[2018-01-09] MEDS: HEPARIN SODIUM,PORCINE 5,000 UNIT/ML 1 ML VIAL SQ SCH ×2 (01:34→09:14)
[2018-01-09] MEDS: MEROPENEM 1 GM in SODIUM CHLORIDE 0.9% 100 ML IVPB SCH ×3 (01:34→15:52)
[2018-01-09 05:41] LABS: Anisocytosis Slight; Basophils % (A) 0 %; Eosinophils # (A) 0.2 k/uL (0-0.7); Eosinophils % (A) 1 %; HCT 29.6 % (34.0-46.0); HGB 9.5 gm/dL (11.4-16.0); Hypochromasia Slight; Lymphocytes # (A) 1.2 k/uL (1.0-4.8); Lymphocytes % (A) 7 %; MCH 31.4 pg (25.0-35.0); MCV 98.1 fL (80.0-100.0); Macrocytosis Slight; Monocytes # (A) 1.1 k/uL (0-1.0); Monocytes % (A) 6 %; Neutrophils # (A) 14.7 k/uL (1.3-7.7); Neutrophils % (A) 85 %; Platelet Count 263 k/uL (150-450); RBC 3.01 m/uL (3.80-5.40); RDW 18.3 % (11.5-15.5); WBC 17.3 k/uL (3.8-10.6)
[2018-01-09 05:56] LABS: Anion Gap 2 mmol/L; Blood Urea Nitrogen 25 mg/dL (7-17); Calcium 8.4 mg/dL (8.4-10.2); Carbon Dioxide 33 mmol/L (22-30); Chloride 99 mmol/L (98-107); Glucose 73 mg/dL (74-99); Potassium 3.8 mmol/L (3.5-5.1); Sodium 134 mmol/L (137-145)
[2018-01-09] MEDS: LEVOTHYROXINE 25 MCG TAB PO SCH (06:07)
[2018-01-09 06:48] LABS: Glucose,Whole Blood 102 mg/dL (75-99)
[2018-01-09] MEDS ORDERED: POTASSIUM CHLORIDE ER 20 MEQ TAB.ER PO SCH (07:00)
[2018-01-09] MEDS: IPRATROPIUM-ALBUTEROL 3 ML NEB INHALATION SCH ×3 (08:16→16:33)
[2018-01-09] MEDS: BUDESONIDE 0.5 MG/2 ML NEBU INHALATION SCH (08:16)
[2018-01-09] MEDS: FORMOTEROL FUMARATE 20 MCG/2 ML NEBU INHALATION SCH (08:20)
[2018-01-09] MEDS ORDERED: FUROSEMIDE 10 MG/ML 2 ML VIAL IV ONE (08:45)
--- NOTE | 2018-01-09 08:56 | XR ---
EXAMINATION TYPE: XR chest 1V portable DATE OF EXAM: 01/09/2018 COMPARISON: 01/08/2018 HISTORY: Postop CABG TECHNIQUE: Single frontal view of the chest is obtained. FINDINGS: Bilateral consolidation and pleural effusion. Heart enlarged. Postsurgical change overlyin g the mediastinum. No pneumothorax. IMPRESSION: 1. Bilateral consolidation and pleural effusion stable. Correlate for pneumonia otherwise consider mi ld CHF.
[2018-01-09] MEDS ORDERED: LOSARTAN 50 MG TAB PO SCH (09:00)
[2018-01-09] MEDS ORDERED: METOPROLOL TARTRATE 25 MG TAB PO SCH (09:00)
[2018-01-09] MEDS: INSULIN ASPART 100 UNIT/ML 1 ML 10 ML VIAL SQ SCH ×2 (09:06→13:04)
--- NOTE | 2018-01-09 09:09 | P.PN ---
Subjective Progress Note Date: 01/09/18 Principal diagnosis: Status post coronary artery bypass grafting 3, postoperative day #12. This is a 77-year-old female patient, known history of COPD with a preop FEV1 of 70% of predicted, and addition to coronary artery disease, peripheral vascular disease and hypertension, who was experiencing symptoms of exertional dyspnea and angina. She underwent stress test and she was found to have reversible ischemia and based on that the patient underwent a cardiac catheterization and she was found to have extreme calcified right and left coronary arteries, severe triple-vessel disease, severe disease involving the proximal RCA, severe disease involving the ostial circumflex and severe disease involving the ostial left anterior descending coronary artery. Based on this, the patient was referred for bypass surgery and the patient underwent three- vessel bypass with LOPES to LAD. Preop echocardiogram showed a preserved LV function with an ejection fraction of 55-60%. The patient has mild concentric left ventricular hypertrophy. I'm seeing this patient immediately after she arrived to the intensive care unit. She is sedated, comfortable likely distress. She is on a mechanical ventilator. She is an assist-control mode of ventilation, at a rate of 12, tidal volume of 400 with an FiO2 of 100% and PEEP of 5. Chest x-ray showed adequate expansion of both lungs. The patient is to mediastinal and 1 pleural chest tube on the left. Output is minimal at this point. There is no evidence of any air leak. There is no evidence of pneumothorax. The the blood gas showed a pH of 7.31 with a pCO2 of 46 and FiO2 is more than 400. Based on these results, increased respiratory rate up to 18. And I also drop the FiO2 down to 50%. She is producing adequate amount of urine output. She arrived to the ICU from the operating room with 12 mics of levo fed and currently she is off pressors. Cardiac output is at 2.6 with an index of 4.4. Pulmonary artery pressures are nonelevated. On 12/29/2017, the patient is postop day #1. The patient was kept intubated and mechanically ventilated overnight as the patient was having issues with increased output from the chest tubes, anemia, low cardiac output and difficulties with her weaning parameters overnight, the patient was given a total of 2 units of packed RBC 4 hemoglobin of 5.2. Subsequent hemoglobin came up to 6.4 and following that was up down to 5.8. The patient was given an additional 2 units of packed RBC this morning. Doppler from the chest tubes have decline. Overall output has been 800 mL of the mediastinal chest tubes and at times cc from the pleural chest tube as the patient arrived from the operating room. The patient was also given fresh frozen plasma total of 2 units. The patient was kept sedated with Diprivan and she remained calm and comfortable. There were 2 attempts to wean this patient a mechanical ventilator overnight. Her weaning parameters of borderline. Subsequent blood gases showed respiratory acidosis and I did not feel comfortable extubating this patient. Based on this, the patient was kept intubated on mechanical ventilator throughout the night. This morning, following transfusion with 2 units of packed RBC, the patient seemed to hemodynamically stable and she was doing okay. As such she was taken off the sedation and she was given a spelled his breathing trial with a pressure support of 5 and a PEEP of 5. His subsequent blood gases showed a mild component of respiratory acidosis with pCO2 of 50 and pH of 7.30. At that point, the patient was awake and she was following commands. She did not show any signs of respiratory distress. I decide to extubate this patient to a nasal cannula. Postextubation, the patient was followed up very closely. She was noted to bronchospastic and wheezy. Based on that, she was given IV Solu-Medrol. Following that she was placed on a BiPAP at a pressure of 14/5 cm of water with an FiO2 of 50%. The most recent blood gases showed a pH of 7.34 with a pCO2 of 42 and pO2 of 65 and this was done and FiO2 of 40%. The patient was somewhat restless and was getting agitated in bed. Based on that, I put her on Precedex and currently it is at 0.4 g per KG per hour. The chest x-ray from earlier this morning showed small better pleural effusion. There was cardiomegaly. [place] catheter was in place. Rest of the chest were all in place. There was some limited bibasilar consolidation. She is afebrile. She is hemodynamically stable and currently the cardiac index is above 2.. Most recent hemoglobin is at 7.2. She is afebrile. She is on no pressors at this point in time. Cardiac rhythm is sinus. On 12/30/2017 the patient is postop day #2. As noted, and as mentioned earlier , the patient was extubated yesterday and postextubation the patient became bronchospastic and wheezy and she had significant respiratory distress. At that point she was started on BiPAP for respiratory support at a pressure of 14/ 6 cm of water. FiO2 was kept at 50%. The patient had some difficulties initially to tolerate the BiPAP. She was restarted on Precedex and the dose was titrated to control her agitation. With these changes, she did extremely well and overnight she was kept on a BiPAP and in the center she was placed on a combination of bronchodilators steroids which optimize her COPD exacerbation. This morning, the patient was taken off the BiPAP and she was placed on 5 L of oxygen nasal cannula. The chest x-ray from today shows a small right-sided pleural effusion. Chest tubes are all in place and output is diminished compared to yesterday with a stable hemoglobin. Hemodynamically, the patient is on no pressors. Cardiac index is at 1.9. She is producing adequate urine output. Hemoglobin is also stable. Based on all this, I weaned her off the Precedex earlier this morning and subsequently discontinued the BiPAP and currently she sometimes of oxygen by nasal cannula. She is breathing easier. She is less short of breath compared to yesterday. Chest tubes are all in place. Sternum stable clean and intact. The patient has a skin laceration left lower extremity and local wound care is being done and the LIZABETH drain is also in place. She is moving all 4 extremities without any limitation. No nausea. No vomiting. No emesis. No cardiac arrhythmias. She has a hemoglobin of 7.4. White cell count is nonelevated. Blood work and electrodes are all within normal limits earlier this morning. Blood sugars of 118. On 12/31/2017, I'm seeing this patient for a follow-up. Our efforts have succeeded in weaning patient off the BiPAP. Note that yesterday she became short of breath and she had to be placed on BiPAP with low dose Precedex for discomfort and agitation and restlessness. This morning she was weaned off and she is currently on 5 L of oxygen by nasal cannula sitting up on a recliner. Extremities no chest tubes are in place. The left pleural chest tube in the right pleural chest were also in place. The patient has put out approximately 80 mL from the left-sided pleural chest tube and frontal 30 mL over the past 24 hours. He still chest tubes have drain 60 mL over the past 8 hours and 12 mL over the past 24 hours. We're considering removal at least on the chest tube. The patient is pulling approximately 500 mL on the incentive spirometer. The LIZABETH drains in place in the left lower extremity and output has been around 48 and she is over the past 8 hours. There is a skin laceration which is being taken care of by local wound care. Sternum stable clean and intact. Hemodynamically stable. A dose of Lasix 40 mg IV push was given today. The cardiac rhythm is sinus. The patient is less bronchus spastic and wheezy compared to yesterday. She remains on DuoNeb neb treatments around the clock, she is also on a combination with as a night and Perforomist nebulized treatments twice a day and IV Solu Medrol. Hemoglobin from today is 6.9 and we' re holding of any blood transfusions for now. Patient is currently on Levemir 12 units in addition to coverage. On 01/01/2018, I'm seeing this patient for a follow-up. She remains in the intensive care unit. She is currently on oxygen by nasal cannula. Breathing is easier. Less short of breath. Chest tubes will be removed today and output has been minimal for now and the patient's chest x-ray showing small better pleural effusion more so on the right and the patient was given a dose of Lasix. Sternum stable clean and intact. Cardiac rhythm is sinus. The patient is using incentive spirometer and she is pulling approximately 500 mL she is equivalent to yesterday. Note that the left-sided chest tube has drained approximately 105 over the past 8 hours and to 45 over the past 24 hours. As for the mediastinal chest tubes have drain 60 mL over the past 8 hours and 140s over the past 24 hours. The fluid balance is -1.3 L over the past 24 hours. The [place] catheter has been removed. The patient is on bronchodilators. The patient is on systemic steroids. Hemoglobin is stable at 7.9. Normal renal function for now. No altered mentation. She is awake and following commands and answering questions appropriately. Chest x-ray was reviewed. Reevaluated today on 01/02/2018, patient remains on 5 L nasal cannula, O2 saturation is marginal, patient remains to do poorly with incentive spirometry, intermittent episodes of confusion at night was noted. Chest x-ray did show small bilateral pleural effusions, patient remains on diuretics. Labs were all reviewed, renal profile is normal. Hemoglobin is 7.3. Patient continues to have some dyspnea on exertion. Reevaluated today on 01/03/2018, remains on 5 L nasal cannula, patient is doing well, asymptomatic, seems to be more awake and active this morning. She is doing a bit better with incentive spirometry. And definitely no episodes of confusion today. Chest x-ray continues to show small bilateral effusions, and the patient remains on diuretics. Hemoglobin today is 7.7. Electrodes are normal renal profile is relatively normal. Chest x-ray was reviewed. Reevaluated today on 01/04/2018, patient is doing well, she is actually an overflow in the ICU from [facility]. No major issues overnight, agent remains on few liters nasal cannula, in no distress, asymptomatic, and no confusion or delirium. Labs and chest x-ray were reviewed, minimal left basilar atelectasis and small tiny effusion noted. CBC is relatively normal hemoglobin is holding at 8 electrolytes and renal profile are normal. Reevaluated today on 01/05/2018, patient remains in the ICU, she had an episode yesterday of confusion, associated with syncope and hypotension. Hemoglobin yesterday was 5.9, and the patient received 2 units of packed RBCs. Today the patient seems to be doing better, remains on BiPAP which I plan to change to a nasal cannula, chest x-ray is showing slightly larger left-sided pleural effusion. Patient was also placed on amiodarone 4 atrial fibrillation with rate in the range of low 90s. Overall the patient remains marginal, and I don' t believe the patient isn't ready to be transferred out of the ICU yet. WBC count today is 15.0 hemoglobin is 9.7 and electrolytes and renal profile are normal. Chest x-ray again was reviewed and it showed atelectasis and left- sided pleural effusion. Rather small. Reevaluated today on 01/06/2018, patient is doing well, on nasal cannula, asymptomatic, no cough no wheezing no shortness of breath, and mentally he seems to be more appropriate, no confusion today whatsoever. She is alert oriented 3, no further episodes of cardiac arrhythmia, she is compliant with incentive spirometry, and her amiodarone drip is being addressed by cardiology. Her bruising and anemia is being addressed by hematology. Hemoglobin today is 8.8. Electrolytes are normal renal profile is normal. Liver enzymes are minimally elevated. Bilirubin is 2.0. Chest x-ray continues to show small left pleural effusion and atelectasis, not large enough to consider thoracentesis on the left side. Reevaluated today on 01/07/2018, remains in the ICU, her mental status seems to be gradually improving, today she is the best I have seen her. She is not confused at all, she denies any shortness of breath no cough no wheezing. Patient is presently on overflow from [facility], but if she remains in the ICU tomorrow, she could be sent to rehab probably early next week. All her labs were reviewed chest x-ray was reviewed and basically unchanged Reevaluated today on 01/08/2018, remains in the ICU as an overflow from [facility]. Patient is doing well, she is much more alert, oriented, not confused anymore. Mental status has dramatically improved over the last couple of days. She was noted to have UTI secondary to ESBL, hence I recommended Merrem which was started yesterday. Patient is now sitting in bedside chair asymptomatic, and not in any distress. Denies any cough wheezing shortness of breath or chest pain. Patient is excited about possibly sending her to rehab in the next 24 hours. Continues to have slight serosanguineous drainage from her previous left-sided chest tube site insertion. And the collection device in place for the fluid. The patient is seen again today 01/09/2018 in follow-up in the intensive care unit. She is [facility] care unit overflow. She is currently sitting up in a chair at the bedside. She is awake and alert in no acute distress. She denies any worsening shortness of breath, cough or congestion. She is working well with the incentive spirometer. Chest x-ray shows stable bilateral consolidation and pleural effusions. She remains on by mouth Lasix. Urine culture was positive for E. coli. White count 17.3. Hemoglobin 9.5. Creatinine 0.48. She remains on bronchodilators and meropenem. The plan is for probable transfer to inpatient rehabilitation today. Objective - Vital Signs Vital signs: Vital Signs Temp 97.5 F L 01/08/18 20:00 Pulse 53 L 01/09/18 08:30 Resp 18 01/09/18 06:00 BP 130/57 01/09/18 06:00 Pulse Ox 93 L 01/09/18 06:00 Intake & Output 01/08/18 01/09/18 01/09/18 18:59 06:59 18:59 Intake Total 200 200 Output Total 700 300 Balance -500 -100 Weight 65.7 kg Intake: IV 200 Meropenem 1 gm In Sodium 200 Chloride 0.9% 100 ml @ 200 mls/hr IVPB Q8HR JENNIFER Rx#:[id number] Intake, IV Titration 100 Amount Meropenem 1 gm In Sodium 100 Chloride 0.9% 100 ml @ 200 mls/hr IVPB Q8HR JENNIFER Rx#:[id number] Oral 100 Output: Urine 700 300 Other: Voiding Method Bedside Commode Bedside Commode # Voids 1 # Bowel Movements 1 ABP, PAP, CO, CI - Last Documented Arterial Blood Pressure 156/117 Pulmonary Artery Pressure 33/17 Cardiac Output 4 Cardiac Index 2.6 - Exam GENERAL EXAM: Alert, active, comfortable in no apparent distress. HEAD: Normocephalic. EYES: Normal reaction of pupils, equal size. NOSE: Clear with pink turbinates. THROAT: No erythema or exudates. NECK: No masses, no JVD. CHEST: Sternum stable. Incision clean dry well approximated. LUNGS: Equal air entry with few scattered rhonchi, crackles in the posterior bases. CVS: S1 and S2 normal with no audible murmur, regular rhythm. ABDOMEN: No hepatosplenomegaly, normal bowel sounds, no guarding or rigidity. SPINE: No scoliosis or deformity SKIN: No rashes CENTRAL NERVOUS SYSTEM: No focal deficits, tone is normal in all 4 extremities. EXTREMITIES: There is no peripheral edema. No clubbing, no cyanosis. Peripheral pulses are intact. - Labs CBC & Chem 7: 01/09/18 04:55 01/09/18 04:55 Labs: Abnormal Lab Results - Last 24 Hours (Table) 01/08/18 01/08/18 01/09/18 Range/Units 17:21 20:19 04:55 WBC 17.3 H (3.8-10.6) k/uL RBC 3.01 L (3.80-5.40) m/uL Hgb 9.5 L (11.4-16.0) gm/dL Hct 29.6 L (34.0-46.0) % RDW 18.3 H (11.5-15.5) % Neutrophils # 14.7 H (1.3-7.7) k/uL Monocytes # 1.1 H (0-1.0) k/uL Sodium (137-145) mmol/L Carbon Dioxide (22-30) mmol/L BUN (7-17) mg/dL Creatinine (0.52-1.04) mg/dL Glucose (74-99) mg/dL POC Glucose (mg/dL) 136 H 176 H (75-99) mg/dL 01/09/18 01/09/18 Range/Units 04:55 06:45 WBC (3.8-10.6) k/uL RBC (3.80-5.40) m/uL Hgb (11.4-16.0) gm/dL Hct (34.0-46.0) % RDW (11.5-15.5) % Neutrophils # (1.3-7.7) k/uL Monocytes # (0-1.0) k/uL Sodium 134 L (137-145) mmol/L Carbon Dioxide 33 H (22-30) mmol/L BUN 25 H (7-17) mg/dL Creatinine 0.48 L (0.52-1.04) mg/dL Glucose 73 L (74-99) mg/dL POC Glucose (mg/dL) 102 H (75-99) mg/dL Assessment and Plan Assessment: Impression: Status post triple-vessel CABG postoperative day #12` Bilateral pleural effusions with postoperative changes, expected post CABG. And areas of atelectasis/expected post CABG. Acute on chronic hypoxic respiratory failure multifactorial secondary to COPD and bilateral pleural effusion. Multiple comorbidities including underlying COPD, chronic back pain, hypothyroidism, hypertension,. New onset atrial fibrillation, on amiodarone, and her anticoagulation therapy is being addressed by hematology on the case. Recommendation: The patient was seen and evaluated by Dr. Garcia. Chest x-ray and labs were reviewed. She remains stable from the pulmonary and critical care standpoint. The plan is for possible transfer to inpatient rehabilitation today. She is currently on bronchodilators and meropenem. If not transferred today we will continue to follow make further recommendations based on her clinical status. Critical care time 35 minutes. I, the cosigning physician, performed a history & physical examination of the patient. Lungs sounds with crackles in the bilateral posterior bases. Maintaining good O2 saturations in the 90s on 2 L/m per nasal cannula. I discussed the assessment and plan of care with my nurse practitioner, Lexi Nava. I attest to the above note as dictated by her. Time with Patient: Greater than 30
[2018-01-09] MEDS: AMIODARONE 200 MG TAB PO SCH (09:13)
[2018-01-09] MEDS: THIAMINE 100 MG TAB PO SCH (09:13)
[2018-01-09] MEDS: ASPIRIN 81 MG PO SCH (09:13)
[2018-01-09] MEDS: PANTOPRAZOLE 40 MG TABLET PO SCH (09:13)
[2018-01-09] MEDS: NYSTATIN 100,000 UNIT/ML SUSP 500,000 UNIT/5 ML CUP PO SCH ×2 (09:13→13:06)
[2018-01-09] MEDS: buPROPion 75 MG TAB PO SCH (09:13)
[2018-01-09] MEDS: methylPREDNISolone 4 MG TAB TAPER PO SCH (09:13)
[2018-01-09] MEDS: ATORVASTATIN 40 MG TAB PO SCH (09:13)
[2018-01-09] MEDS: FERROUS SULFATE 325 MG TAB PO SCH (09:14)
[2018-01-09] MEDS: ASCORBIC ACID 500 MG TAB PO SCH (09:14)
[2018-01-09] MEDS: CLOPIDOGREL 75 MG TAB PO SCH (09:14)
--- NOTE | 2018-01-09 09:57 | P.PN ---
Subjective Progress Note Date: 01/09/18 Mrs. Murcia is a 77-year-old female status post I to coronary bypass surgery. Patient is awake but seemed to be sleepy. Apparently there is some confusion. Patient is also having back pains. Patient is maintaining sinus rhythm. Blood pressure is stable. Her hemoglobin is 6.9. Electoral lites are within normal limits. Patient is on aspirin and Plavix, metoprolol and also Lipitor. We will continue current medical therapy. On 01/01/2018: This is a 77-year-old female status post bypass surgery. Had a prolonged course mostly respiratory issues. The patient seemed more alert today. No acute distress. Still has expiratory wheezes. Chest tubes are being taken out. Central line is also being taken out. Her kidney function remained stable. Patient is maintaining sinus rhythm. Dose of the beta jaida is increased. Continue current management . 2017: This is a 77-year-old female who is status post CABG. Patient is feeling much better. She claims her shortness of breath has improved 90%. Doesn't appear to be in acute distress. Maintaining sinus rhythm. She is continuing on aspirin, Plavix, metoprolol and Lipitor. She'll continue current medical therapy. She may be transferred to inpatient rehabilitation. Objective - Vital Signs Vital signs: Vital Signs Temp 97.5 F L 01/08/18 20:00 Pulse 53 L 01/09/18 08:30 Resp 18 01/09/18 06:00 BP 130/57 01/09/18 06:00 Pulse Ox 93 L 01/09/18 06:00 Intake & Output 01/08/18 01/09/18 01/09/18 18:59 06:59 18:59 Intake Total 200 200 Output Total 700 300 Balance -500 -100 Weight 65.7 kg Intake: IV 200 Meropenem 1 gm In Sodium 200 Chloride 0.9% 100 ml @ 200 mls/hr IVPB Q8HR JENNIFER Rx#:[id number] Intake, IV Titration 100 Amount Meropenem 1 gm In Sodium 100 Chloride 0.9% 100 ml @ 200 mls/hr IVPB Q8HR JENNIFER Rx#:[id number] Oral 100 Output: Urine 700 300 Other: Voiding Method Bedside Commode Bedside Commode # Voids 1 # Bowel Movements 1 ABP, PAP, CO, CI - Last Documented Arterial Blood Pressure 156/117 Pulmonary Artery Pressure 33/17 Cardiac Output 4 Cardiac Index 2.6 - Exam GENERAL EXAM: Patient is alert and oriented and doesn't appear to be in any acute distress HEENT: Normocephalic. Normal reaction of pupils, equal size, normal range of extraocular motion. No erythema or exudates in the throat. NECK: No masses, no nuchal rigidity. CHEST: No chest wall deformity. LUNGS: Diminished breath breath sounds. Expiratory wheezes HEART: S1 and S2 normal with no audible mumurs or gallops. Regular rhythm, femorals equal on both sides.. ABDOMEN: No hepatosplenomegaly, normal bowel sounds, no guarding or rigidity. SKIN: No rashes CENTRAL NERVOUS SYSTEM: No focal deficits. EXTREMITIES: No cyanosis, clubbing or edema. - Labs CBC & Chem 7: 01/09/18 04:55 01/09/18 04:55 Labs: Abnormal Lab Results - Last 24 Hours (Table) 01/08/18 01/08/18 01/09/18 Range/Units 17:21 20:19 04:55 WBC 17.3 H (3.8-10.6) k/uL RBC 3.01 L (3.80-5.40) m/uL Hgb 9.5 L (11.4-16.0) gm/dL Hct 29.6 L (34.0-46.0) % RDW 18.3 H (11.5-15.5) % Neutrophils # 14.7 H (1.3-7.7) k/uL Monocytes # 1.1 H (0-1.0) k/uL Sodium (137-145) mmol/L Carbon Dioxide (22-30) mmol/L BUN (7-17) mg/dL Creatinine (0.52-1.04) mg/dL Glucose (74-99) mg/dL POC Glucose (mg/dL) 136 H 176 H (75-99) mg/dL 01/09/18 01/09/18 Range/Units 04:55 06:45 WBC (3.8-10.6) k/uL RBC (3.80-5.40) m/uL Hgb (11.4-16.0) gm/dL Hct (34.0-46.0) % RDW (11.5-15.5) % Neutrophils # (1.3-7.7) k/uL Monocytes # (0-1.0) k/uL Sodium 134 L (137-145) mmol/L Carbon Dioxide 33 H (22-30) mmol/L BUN 25 H (7-17) mg/dL Creatinine 0.48 L (0.52-1.04) mg/dL Glucose 73 L (74-99) mg/dL POC Glucose (mg/dL) 102 H (75-99) mg/dL Assessment and Plan (1) S/P CABG (coronary artery bypass graft) Current Visit: Yes Status: Acute Code(s): Z95.1 - PRESENCE OF AORTOCORONARY BYPASS GRAFT SNOMED Code(s): 866559175 (2) CAD (coronary artery disease) Current Visit: Yes Status: Chronic Code(s): I25.10 - ATHSCL HEART DISEASE OF [place] CORONARY ARTERY W/O ANG PCTRS SNOMED Code(s): 30600437 (3) Hypertension Current Visit: Yes Status: Chronic Code(s): I10 - ESSENTIAL (PRIMARY) HYPERTENSION SNOMED Code(s): 63105943 (4) Anemia Current Visit: Yes Status: Acute Code(s): D64.9 - ANEMIA, UNSPECIFIED SNOMED Code(s): 135957438 Plan: Patient is critically stable. Patient is maintaining sinus rhythm. Most probably will be transferred to inpatient rehabilitation at [facility].
[2018-01-09 11:48] VITALS: BMI 26.4
[2018-01-09 12:06] LABS: Glucose,Whole Blood 139 mg/dL (75-99)
--- NOTE | 2018-01-09 15:28 | P.DS ---
Providers Date of admission: 12/28/17 06:18 Expected date of discharge: 01/09/18 Attending physician: Annie Valencia Consults: 12/28/17 15:39 Consult Physician Routine Consulting Provider: Oj Garcia Consult Reason/Comments: Service Crew Leader Consult: post cardiac surgery Do you want consulting provider notified?: Yes Consult Physician Routine Consulting Provider: Jessica Stanley Consult Reason/Comments: medical management Do you want consulting provider notified?: Yes Consult Physician Routine Consulting Provider: Chapo Miranda Consult Reason/Comments: General Labor Forklift Operator Consult: post cardiac surgery Do you want consulting provider notified?: Yes 01/03/18 08:47 Consult Physician Routine Consulting Provider: Justice Dorantes Consult Reason/Comments: rehab placement Do you want consulting provider notified?: Yes 01/05/18 10:22 Consult Physician Routine Consulting Provider: Dominic Colindres Consult Reason/Comments: coagulapathy Do you want consulting provider notified?: Yes Primary care physician: Jessica Lizeth - Discharge Diagnosis(es) (1) History of fall Current Visit: Yes Status: Acute (2) CAD (coronary artery disease) Current Visit: Yes Status: Chronic (3) Hypertension Current Visit: Yes Status: Chronic (4) Peripheral vascular disease Current Visit: Yes Status: Chronic (5) Facial contusion Current Visit: No Status: Inactive (6) History of pulmonary embolism Current Visit: No Status: Resolved (7) Tobacco dependence in remission Current Visit: No Status: Resolved Hospital Course: FINAL DIAGNOSIS: 1. Triple-vessel coronary artery disease with preserved left ventricular function 2. Chronic obstructive pulmonary disease with a preoperative FEV1 of 70% of predicted value 3. Severe peripheral vascular disease 4. Hypertension 5. Remote history of pulmonary embolism 6. Hypothyroid 7. History of tobacco dependence 8. Chronic degenerative arthritis 9. History of fall from standing preoperatively 10. Postoperative acute blood loss anemia, an unexpected but potential outcome of surgery due to hemodilution and cardiopulmonary bypass 11. Postoperative paroxysmal atrial fibrillation, an unexpected but potential outcome of surgery 12. Postoperative urinary tract infection with a positive urine culture showing Escherichia coli ESBL, an unexpected outcome of surgery 13. Hyperlipidemia 14. History of depression 15. Coagulopathy related to liver insufficiency 16. EtOH abuse PRINCIPAL PROCEDURE: 1. Triple vessel coronary artery bypass grafting using the left internal mammary artery to left anterior descending coronary artery, a reverse greater saphenous vein graft from the aorta to the first obtuse marginal coronary artery , a reverse greater saphenous vein graft from the aorta to the posterior descending coronary artery. 2. Endoscopic vein harvesting using the left greater saphenous vein. 3. Intraoperative transesophageal echocardiogram, epi-aortic scanning and intraoperative graft flow measurements using the [employer] system. HISTORY OF PRESENT ILLNESS: This is a 77-year-old female patient who is followed by Dr. Stanley an outpatient basis. She has a past medical history significant for chronic obstructive pulmonary disease with a preoperative FEV1 of 70% of predicted value, severe peripheral vascular disease, hypertension, hyperlipidemia, remote history of pulmonary embolism, history of tobacco dependence, chronic degenerative arthritis, depression, EtOH abuse and recent fall from standing. Recently, the patient has been experiencing complaints of progressive shortness of breath and symptoms of chest discomfort with activity. She underwent a myocardial perfusion imaging stress test which showed ischemia in the distribution of 3 coronary arteries and was subsequently evaluated by Dr. Miranda from cardiology associates. Due to her recent symptoms and abnormal stress test she was recommended to undergo a coronary angiogram. On 12/07/2017 the patient underwent a selective right and left coronary angiogram, left heart catheterization which demonstrated a 70% stenosis to her proximal right coronary artery, a 70% stenosis to her ostial circumflex and a 70% stenosis to her proximal left anterior descending coronary artery. A 2-D echocardiogram was also completed which showed an overall left ventricular systolic function to be normal with an ejection fraction between 55 and 60%, mild mitral valve regurgitation, mild tricuspid valve regurgitation and trace pulmonic valve regurgitation. Due to the patient's recent symptoms, abnormal stress test and cardiac catheterization results Dr. Annie Valencia from cardiothoracic surgery was asked to evaluate the patient. Dr. Valencia reviewed the cardiac catheterization results with the patient and her and a myocardial revascularization surgery was recommended. The patient did wish to proceed with myocardial revascularization surgery and was scheduled on an elective basis. HOSPITAL COURSE: The patient was admitted to the hospital and after obtaining consent was taken to the operating room where Dr. Annie Valencia performed a triple vessel coronary artery bypass grafting using the left internal mammary artery to left anterior descending coronary artery, a reverse greater saphenous vein graft from the aorta to the first obtuse marginal coronary artery, a reverse greater saphenous vein graft from the aorta to the posterior descending coronary artery, endoscopic vein harvesting using the left greater saphenous vein, intraoperative transesophageal echocardiogram, epi-aortic scanning and intraoperative graft flow measurements using the [employer] system. Postoperatively the patient was transferred to the cardiovascular intensive care unit where she was recovered, monitored hemodynamically, and where she progressed cardiac dilatation phase 1. She was extubated, all lines, tubes and supportive drips were discontinued and an appropriate and she was scheduled to transfer to 3 S cardiac stepdown unit for further rehabilitation and monitoring. Due to bed availability she did continue to stay in the intensive care unit for further monitoring. Post epicardial pacemaker wire removal the patient did have an episode of syncope and hypotension which was treated accordingly and required closer observation in the intensive care unit which was treated accordingly. The patient also had some postoperative paroxysmal atrial fibrillation which was treated accordingly. Her oxygen has been weaned down to 2 L nasal cannula, she continues to use her incentive spirometry, and participate with physical and occupational therapy. She has been tolerating an oral diet, her pain is well controlled on her current pain medication regimen and she is ready to be discharged to inpatient rehab at [facility] today on postoperative day #12. She has received written and verbal instructions regarding her medications, activity restrictions, signs and symptoms requiring physician notification and her follow-up appointments. COMPLICATIONS: Her postoperative period was complicated by some paroxysmal atrial fibrillation, acute blood loss anemia with syncopal event, and hypotension and a postoperative urinary tract infection with a positive culture showing Escherichia coli ESBL which was treated accordingly. CONSULTATIONS: 1. Dr. Miranda for cardiology management. 2. Dr. Stanley for medical management. 3. Dr. Colindres for coagulopathy management. 4. Dr. Dorantes for rehab management. 5. Dr. Garcia for pulmonary and ventilator management DISCHARGE INSTRUCTIONS: 1. No driving for 4 weeks, or until physician gives their ok. 2. The patient should sleep in their own bed, no medical bed needed. 3. Stairs are not an issue. If the bedroom is upstairs, it is advised that the patient go up at night and down in the morning for the first week. Go slowly, using handrail and take 1 step at a time. 4. AMINTA hose are to be worn for 30 days or until physician discontinues. 5. Heart hugger is to be worn 100% of the time until physician discontinues.( except when showering) 6. No lifting, pushing, or pulling more than 10 pounds for 12 weeks. The physician will advise of any restriction changes. 7. The patient is expected to continue the prescribed walking program. 8. Continue pain control per as needed orders. 9. Continue with incentive spirometry and splinting/heart hugger until otherwise directed by the physician. 10. Must shower daily using liquid antibacterial soap and a separate white washcloth for each individual incision. 11. Routine sternal incision care, no ointments, lotions or powders on the incisions. 12. Please notify surgeon/nurse practitioner for temperature greater than 101F or purulent drainage from incisions 13. Prescriptions for first 30 days given per cardiac surgery service. After 30 days, all prescription refills obtained through cardiology/primary care physician. 14. A red arm and has been placed on this patient it should be worn for 30 days post surgery and will be removed by the cardiothoracic surgeons. If an ER visit is necessary, please make sure the number on the red arm band is called. 15. Due to the patient's UTI of Escherichia coli she is being discharged with INVanz 1 g IV piggyback every 24 hours 7 days. REHAB SERVICES TO PROVIDE: RN SKILLED HOME CARE SERVICES FOR POST-OP SURGICAL PATIENTS WITH THE FOLLOWING: Coronary Artery Bypass Surgery (CABG), Mitral Valve Replacement/ Repair ( MVR), Aortic Valve Replacement/Repair (AVR) RN TO CONTINUE EDUCATION FROM ``ROAD TO A HEALTH HEART PATIENT EDUCATION MANUAL" (GIVEN TO PATIENT IN THE HOSPITAL) MEDICATION RECONCILIATION WITH EDUCATION NEEDED ON FIRST HOME VISIT EMPHASIZE IMPORTANCE OF WEARING BREAST SUPPORT/HEART HUGGER ENCOURAGE USE OF INCENTIVE SPIROMETER 10 X EVERY HOUR WHILE AWAKE ENCOURAGE UTILIZATION OF LOWER EXTREMITY COMPRESSION STOCKINGS/AMINTA HOSE and ELEVATE LEGS ABOVE LEVEL OF HEART WHILE AT REST. ENCOURAGE AMBULATION 3-5x/day INCREASING TOLERATES, WHILE AVOID EXTREMES IN TEMPERATURE FREQUENCY:WHEN DISCHARGED HOME FROM [employer]OP SUPERVISOR TO OPEN THE PATIENT WITHIN 24 HOURS OF DISCHARGE FROM THE HOSPITAL WITH [place]HE[place] [facility] [place] 2-3 X A WEEK FOR 4 WEEKS ESTABLISHED BY PATIENT NEEDS. LABORATORY: CBC, CMP TO BE DRAWN ON THE THIRD DAY HOME, , 01/12/2018 (RAN STAT) FAX RESULTS TO [phone]. WHEN HOME TELEHEALTH PARAMETERS: WEIGHT: NOTIFY MD OF WEIGHT GAIN OF 2 LBS IN 24 HOURS OR 5 LBS IN ONE WEEK HR: NOTIFY MD OF HR <55 BPM OR HR>100 BPM BP: NOTIFY MD IF BP <90/55 OR BP>140/100 O2 SAT: NOTIFY MD IF PO2<93% ON ROOM AIR SEND TELEHEALTH REPORT TO GAS PROCESSING PLANT OPERATOR AND CARDIOVASCULAR SURGEON THE FIRST WEEK OF CARE AND THEN BI-WEEKLY. PLEASE ADDITIONALLY COMMUNICATE ANY ABNORMALS AND NEW FINDINGS TO THE SURGEONS OFFICE. Plan - Discharge Summary Discharge Rx Participant: Yes New Discharge Prescriptions: New Ertapenem [INVanz] 1 gm IVPB Q24H #7 bag Acetaminophen Tab [Tylenol] 650 mg PO Q4HR PRN tab PRN Reason: Fever And/ Or Pain Amiodarone [Cordarone] 400 mg PO BID tab Ascorbic Acid [Vitamin C] 500 mg PO DAILY@1200 tab Aspirin 81 mg PO DAILY chew Atorvastatin [Lipitor] 40 mg PO DAILY tab Bisacodyl [Dulcolax] 10 mg RECTAL DAILY PRN supp PRN Reason: Constipation Budesonide [Pulmicort] 0.5 mg INHALATION RT-BID nebu buPROPion [Wellbutrin] 75 mg PO DAILY tab Clopidogrel [Plavix] 75 mg PO DAILY tab Ferrous Sulfate [Iron (65 MG Elemental)] 325 mg PO W/LUNCH tab Formoterol Fumarate [Perforomist] 20 mcg INHALATION RT-BID nebu Furosemide [Lasix] 20 mg PO DAILY tab Insulin Aspart [NovoLOG (formulary)] 0 unit SQ ACHS vial Ipratropium-Albuterol Nebulize [Duoneb 0.5 mg-3 mg/3 ml Soln] 3 ml INHALATION RT-QID ampul.neb Ipratropium-Albuterol Nebulize [Duoneb 0.5 mg-3 mg/3 ml Soln] 3 ml INHALATION RT-Q2H PRN ampul.neb PRN Reason: Shortness Of Breath Or Wheezing Levothyroxine Sodium [Synthroid] 25 mcg PO DAILY@0630 tab Losartan [Cozaar] 100 mg PO DAILY tab Magnesium Hydroxide [Milk of Magnesia Concentrate] 2,400 mg PO BID PRN ml PRN Reason: Constipation Melatonin 6 mg PO HS tablet methylPREDNISolone Dose Pack [Medrol Dose Pack] 16 mg PO DAILY tab Metoprolol Tartrate [Lopressor] 25 mg PO BID tab Pantoprazole [Protonix] 40 mg PO AC-BRKFST tablet. Sennosideyoung-Docusate Sodium [Senokot-S] 2 each PO HS tab SILVER sulfADIAZINE CREAM [Silvadene Cream] 1 applic TOPICAL DAILY applic Thiamine [Vitamin B-1] 100 mg PO DAILY@1200 tab Potassium Chloride ER [K-Dur 10] 10 meq PO DAILY #14 tab Discontinued buPROPion [Wellbutrin] 75 mg PO DAILY Albuterol Sulfate [Proair Hfa] 1 - 2 puff INHALATION RT-QID PRN PRN Reason: Shortness Of Breath Losartan [Cozaar] 50 mg PO QAM Cyclobenzaprine [Flexeril] 10 mg PO DAILY PRN PRN Reason: Muscle Spasm Turmeric Root Extract [Turmeric] 500 mg PO DAILY Levothyroxine Sodium 25 mcg PO DAILY Carvedilol [Coreg] 3.125 mg PO BID Atorvastatin [Lipitor] 80 mg PO DAILY Aspirin 81 mg PO DAILY Ipratropium/Albuterol Sulfate [Combivent Respimat Inhaler] 2 puff INHALATION RT-BID Ipratropium Nebulized [Atrovent Nebulized] 0.5 mg INHALATION RT-BID Mupirocin 2% Oint [Bactroban 2% Oint] 1 applic TOPICAL BID Discharge Medication List Acetaminophen Tab [Tylenol] 650 mg PO Q4HR PRN tab 01/09/18 [Rx] Amiodarone [Cordarone] 400 mg PO BID tab 01/09/18 [Rx] Ascorbic Acid [Vitamin C] 500 mg PO DAILY@1200 tab 01/09/18 [Rx] Aspirin 81 mg PO DAILY chew 01/09/18 [Rx] Atorvastatin [Lipitor] 40 mg PO DAILY tab 01/09/18 [Rx] Bisacodyl [Dulcolax] 10 mg RECTAL DAILY PRN supp 01/09/18 [Rx] Budesonide [Pulmicort] 0.5 mg INHALATION RT-BID nebu 01/09/18 [Rx] Clopidogrel [Plavix] 75 mg PO DAILY tab 01/09/18 [Rx] Ertapenem [INVanz] 1 gm IVPB Q24H #7 bag 01/09/18 [Rx] Ferrous Sulfate [Iron (65 MG Elemental)] 325 mg PO W/LUNCH tab 01/09/18 [Rx] Formoterol Fumarate [Perforomist] 20 mcg INHALATION RT-BID nebu 01/09/18 [Rx] Furosemide [Lasix] 20 mg PO DAILY tab 01/09/18 [Rx] Insulin Aspart [NovoLOG (formulary)] 0 unit SQ ACHS vial 01/09/18 [Rx] Ipratropium-Albuterol Nebulize [Duoneb 0.5 mg-3 mg/3 ml Soln] 3 ml INHALATION RT -Q2H PRN ampul.neb 01/09/18 [Rx] Ipratropium-Albuterol Nebulize [Duoneb 0.5 mg-3 mg/3 ml Soln] 3 ml INHALATION RT -QID ampul.neb 01/09/18 [Rx] Levothyroxine Sodium [Synthroid] 25 mcg PO DAILY@0630 tab 01/09/18 [Rx] Losartan [Cozaar] 100 mg PO DAILY tab 01/09/18 [Rx] Magnesium Hydroxide [Milk of Magnesia Concentrate] 2,400 mg PO BID PRN ml 01/09 [Rx] Melatonin 6 mg PO HS tablet 01/09/18 [Rx] Metoprolol Tartrate [Lopressor] 25 mg PO BID tab 01/09/18 [Rx] Pantoprazole [Protonix] 40 mg PO AC-BRKFST tablet. 01/09/18 [Rx] Potassium Chloride ER [K-Dur 10] 10 meq PO DAILY #14 tab 01/09/18 [Rx] SILVER sulfADIAZINE CREAM [Silvadene Cream] 1 applic TOPICAL DAILY applic 01/09 [Rx] Sennosides-Docusate Sodium [Senokot-S] 2 each PO HS tab 01/09/18 [Rx] Thiamine [Vitamin B-1] 100 mg PO DAILY@1200 tab 01/09/18 [Rx] buPROPion [Wellbutrin] 75 mg PO DAILY tab 01/09/18 [Rx] methylPREDNISolone Dose Pack [Medrol Dose Pack] 16 mg PO DAILY tab 01/09/18 [Rx ] Follow up Appointment(s)/Referral(s): Jessica Stanley MD [Primary Care Provider] - 1 Week (Follow-up with Dr. Dr. Stanley after discharge from [facility] inpatient rehab. ) Chapo Miranda MD [STAFF PHYSICIAN] - 01/16/18 10:45 am Annie Valencia MD [STAFF PHYSICIAN] - 01/27/18 10:45 am Oj Garcia DO [Doctor of Osteopathic Medicine] - 01/27/18 1:30 pm Ambulatory/Diagnostic Orders: Complete Blood Count w/diff [LAB.AMB] Time Frame: 01/12/18, Facility: [facility], Location: [facility] Comprehensive Metabolic Panel [LAB.AMB] Time Frame: 01/12/18, Facility: [facility], Location: [facility]
[2018-01-09 15:30] VITALS: BP 123/60; PULSE 58; RESP 23; TEMP 97.8
--- NOTE | 2018-01-09 15:37 | P.PN ---
Subjective Progress Note Date: 01/09/18 This is a 77-year-old female patient of Dr. Stanley with a previous medical history significant for COPD, coronary artery disease, peripheral vascular disease and hypertension, who was experiencing symptoms of exertional dyspnea and angina. She underwent stress test and she was found to have reversible ischemia and based on that the patient underwent a cardiac catheterization and she was found to have extreme calcified right and left coronary arteries, severe triple-vessel disease, severe disease involving the proximal RCA, severe disease involving the ostial circumflex and severe disease involving the ostial left anterior descending coronary artery. Based on this, the patient was referred for bypass surgery and the patient underwent three- vessel bypass with LOPES to LAD, SVG to OM and SVG to PDA, Preop echocardiogram showed a preserved LV function with an ejection fraction of 55-60%. The patient has mild concentric left ventricular hypertrophy, patient was admitted to intensive care unit she is currently on assist mode ventilation with FiO2 of 40% tidal volume of 400 and PEEP of 5, patient was slightly agitated earlier today in the morning and this is delayed her expiration this will be reevaluated in the next few hours hopefully she'll be extubated her on today. 12/30: Patient has been successfully extubated. She remains in the intensive care unit. Patient did have some anxiety issues and a sitter is at the bedside. She states that she is feeling "droggy" but is quite talkative. She denies having any headache. Positive cough. She denies passing any gas. No bowel movement. Her chest pain is currently controlled. She denies any shortness of breath. Chest tubes, Segovia, right-sided cordis remain in place. Patient has a LIZABETH drain to the left lower extremity. Blood sugars are running in the low 100s and we will plan to transition her over to Levemir and NovoLog scale and discontinue insulin drip. Hemoglobin is 7.4, platelet count 82. patient is status post total of 4 units packed RBCs and 2 fresh frozen plasma, 1 platelet. 01/02: Patient remains in the intensive care unit. Her blood sugars are running 84-108 and Levemir decreased to 8 units and held for today. She is currently on oxygen at 4 L nasal cannula pulse oxing 97%. Over the weekend, Segovia catheter and chest tubes were removed. She did have some confusion during the night with concern for owners. We will add in melatonin for sleep. Patient is scheduled for transfer to selective care. 01/03: Patient's blood sugars were running low and we will discontinue the long- acting Levemir and continue only NovoLog scale. Patient is only reaching 500 on incentive spirometry. She is eating okay and has had formed stools. She denies having any chest pain. She does complain of feeling tired and fatigues easily. She apparently was a little agitated during the night and got herself up into a chair alone but no major problems. Patient is now a selective care overflow. 01/04: Patient has been evaluated by Dr. Dorantes with plan for transfer to the [facility] for inpatient rehab. Patient is a 2 person assist and doubt the patient appropriate for inpatient rehab. Patient continues to wait for bed in selective care unit. Solu-Medrol has been changed to Medrol Dosepak. She was cleared for discharge by pulmonary medicine. Pulse ox is 94% on 4 L. White count is 14.6, hemoglobin 8.0, platelet count 195. Unfortunately , after patient had pacer wires removed she became bradycardic and unresponsive. She was given 1 L of IV fluids, she is currently on BiPAP and echocardiogram has been ordered with concern for internal bleeding. Patient is noted to have a hematoma to the left upper inner thigh but no other sources of bleeding noted. The patient had a drop in her hemoglobin 5.9 is scheduled for transfusion today. Patient denies having shortness of breath or chest pain. She does complain of pain in the left lower leg. 01/05: Patient has had INR of 2 since arrival. Daughter is at bedside and states that the patient does not take any anticoagulants however she does drink 3-4 beers daily which she does try to hide from family. Patient has been placed on amiodarone related to atrial fibrillation. She is also had some confusion during the night and a urine specimen was sent. Cozaar and Norvasc are held due to blood pressure. Blood pressures are ranging in the low 100s to the 1 teens. Heart rate is 62. Pulse ox saturation is 95% on 4 L of nasal cannula. Urinary output is 40-60 ML's per hour. 01/06- patient remains in the intensive care unit most likely will go to [facility] for inpatient rehab on Tuesday. She is getting up out of bed and planning for shower this morning. She is alert this morning she states she slept well last night. Patient was seen by Dr. Colindres regarding coagulopathy related to liver insufficiency/vitamin K deficiency acute with chronic moderate alcohol use accessory basilar by hemodynamic changes from surgery, immunoglobulin and statin use. Patient is status post oral vitamin K and subsequently IV vitamin K. Dr. Colindres's recommended resuming aspirin and Plavix only once INR is normalized. INR is 1.3 and patient will be resumed back on Plavix, aspirin and subcu heparin today. Hemoglobin is at 8.8, white count 15.2 , creatinine 0.47. Blood sugars are running between 132 and 200. 01/07: Patient is currently in ICU as a civil selective care overflow. She is sitting up in a chair without any difficulties. She is alert and appropriate at this time. Patient will most likely go to [facility] for inpatient rehab on Tuesday. Patient denies any chest pain or difficulty breathing or fever. WBC 17.1, hemoglobin 9.1, INR was 1.3, sodium 134, BUN 18 creatinine 0.49. Plavix aspirin and subcu heparin have been resumed. She has had some episodes of atrial fibrillation which she received amiodarone bolus for resulting in low blood pressure. Patient does not have any complaints of dizziness or lightheadedness. 01/08 patient examined bedside in ICU. She is doing well vitals are stable with a temp of 97.2 pulse rate 63. Blood pressure 1:30/61. Patient continues to have leukocytosis of 16.9, hemoglobin 8.8, sodium 132, chloride 97, carbon dioxide 33 BUN 25 she did have a hypoglycemic event this morning 58 of glucose. Chest x-ray this morning shows a patchy basilar infiltrate and pleural effusion at the left with slight improvement. Continues to get mammogram for ESBL UTI. Slight serosanguineous drainage from a previous left chest tube site insertion. Metoprolol increased to 50 mg twice daily possible discharge to inpatient rehab tomorrow 01/09: Patient denies any new complaints. She is scheduled for transfer to [facility] for inpatient rehab. She is currently on O2 at 2 L nasal cannula. We will plan to continue NovoLog scale while patient is on steroids and this can be discontinued once steroids have completed. Meropenem will be switched to ertapenem for the E. coli ESBL UTI. Patient is being transferred in stable condition. Review Of Systems: Constitutional: No fever, no chills, no night sweats. No weight change. + weakness, +fatigue no lethargy. EENT: No headache. No blurred vision or double vision, no loss of vision. No loss of Hearing, no ringing in the ears, no dizziness. No nasal drainage or congestion. No epistaxis. Lungs: No shortness of breath, +cough, + sputum production. No wheezing. Cardiovascular: No chest pain (controlled), no lower extremity edema. No palpitations. No paroxysmal nocturnal dyspnea. No orthopnea. No lightheadedness or dizziness. + syncopal episodes. Abdominal: No abdominal pain. No nausea, vomiting. No diarrhea. No constipation. No bloody or tarry stools. Genitourinary: No dysuria, increased frequency, urgency. No urinary retention. Musculoskeletal: No myalgias. + muscle weakness, no gait dysfunction, no frequent falls. No back pain. No neck pain. Integumentary: No wounds, no lesions. No rash or pruritus. No unusual bruising. No change in hair or nails. Neurologic: No aphasia. No facial droop. No change in mentation. No head injury. No headache. No paralysis. No paresthesia. Psychiatric: No depression. No anxiety. No mood swings. Endocrine: No abnormal blood sugars. No weight change. No excessive sweating or thirst. Objective - Vital Signs Vital signs: Vital Signs Temp 98.1 F 01/09/18 08:00 Pulse 53 L 01/09/18 08:30 Resp 24 01/09/18 08:00 BP 130/57 01/09/18 08:00 Pulse Ox 89 L 01/09/18 08:00 Intake & Output 01/08/18 01/09/18 01/09/18 18:59 06:59 18:59 Intake Total 200 200 100 Output Total 700 300 Balance -500 -100 100 Weight 65.7 kg 65.7 kg Intake: IV 200 100 Meropenem 1 gm In Sodium 200 100 Chloride 0.9% 100 ml @ 200 mls/hr IVPB Q8HR [facility] Rx#:[id number] Intake, IV Titration 100 Amount Meropenem 1 gm In Sodium 100 Chloride 0.9% 100 ml @ 200 mls/hr IVPB Q8HR [facility] Rx#:[id number] Oral 100 Output: Urine 700 300 Other: Voiding Method Bedside Commode Bedside Commode Bedside Commode # Voids 1 # Bowel Movements 1 ABP, PAP, CO, CI - Last Documented Arterial Blood Pressure 156/117 Pulmonary Artery Pressure 33/17 Cardiac Output 4 Cardiac Index 2.6 - Exam Constitutional General appearance: no acute distress, patient is sitting in chair at the bedside and appears to be comfortable. - EENT ENT: Pupils equal round, conjunctiva slightly pale, mucous members of the mouth slightly dry. Trachea midline. Ears: bilateral: normal - Neck Neck: no lymphadenopathy Carotids: bilateral: upstroke delayed - Respiratory Respiratory: bilateral: diminished, rales, rhonchi, prolonged expiration, negative: dullness, wheezing - Cardiovascular Rhythm: regular Heart sounds: normal: S1, S2 Abnormal Heart Sounds: systolic murmur, rub, S3 Gallop - Gastrointestinal General gastrointestinal: normal bowel sounds, soft, no splenomegaly, no tenderness, no umbilical hernia, no ventral hernia - Integumentary Integumentary: normal, normal turgor - Psychiatric Psychiatric: A&O x's 3, appropriate affect, intact judgment & insight - Labs CBC & Chem 7: 01/09/18 04:55 01/09/18 04:55 Labs: Abnormal Lab Results - Last 24 Hours (Table) 01/08/18 01/08/18 01/09/18 Range/Units 17:21 20:19 04:55 WBC 17.3 H (3.8-10.6) k/uL RBC 3.01 L (3.80-5.40) m/uL Hgb 9.5 L (11.4-16.0) gm/dL Hct 29.6 L (34.0-46.0) % RDW 18.3 H (11.5-15.5) % Neutrophils # 14.7 H (1.3-7.7) k/uL Monocytes # 1.1 H (0-1.0) k/uL Sodium (137-145) mmol/L Carbon Dioxide (22-30) mmol/L BUN (7-17) mg/dL Creatinine (0.52-1.04) mg/dL Glucose (74-99) mg/dL POC Glucose (mg/dL) 136 H 176 H (75-99) mg/dL 01/09/18 01/09/18 01/09/18 Range/Units 04:55 06:45 11:40 WBC (3.8-10.6) k/uL RBC (3.80-5.40) m/uL Hgb (11.4-16.0) gm/dL Hct (34.0-46.0) % RDW (11.5-15.5) % Neutrophils # (1.3-7.7) k/uL Monocytes # (0-1.0) k/uL Sodium 134 L (137-145) mmol/L Carbon Dioxide 33 H (22-30) mmol/L BUN 25 H (7-17) mg/dL Creatinine 0.48 L (0.52-1.04) mg/dL Glucose 73 L (74-99) mg/dL POC Glucose (mg/dL) 102 H 139 H (75-99) mg/dL Assessment and Plan Plan: 1. Status post CABG 3 with LOPES to LAD, SVG to OM, SVG to PDA. Patient has been successfully extubated, continue aggressive pulmonary toileting with nebulized treatment. Continue DuoNeb treatments, Pulmicort, Perforomist. Continue aspirin 81 mg daily, Lipitor 40 mg daily, Plavix 75 mg daily, amiodarone. Long-acting insulin discontinued. NovoLog scale. 2. CAD post CABG. continue as in #1. 3. Hypertension and hypertensive cardiovascular disease. Continue losartan 25 mg orally once every day, Lopressor 25 mg orally 3 times daily. 4. Hyperlipidemia. Continue Lipitor 40 mg once every day. 5. Moderate bilateral vascular disease. Continue aspirin and Lipitor for secondary prevention. 6. Mild COPD. Continue aggressive pulmonary toileting with nebulized treatment. 7. 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 Continue with current pain management. 8. Hypothyroidism. Continue patient on Synthroid 25 g orally once every day. 9. Recurrent depression. Continue Wellbutrin 75 mg orally once every day. 10. Syncopal episode with hypotension with acute blood loss anemia occurring after pacer wires were removed. Patient is scheduled for transfusion 2 units packed RBCs. Echocardiogram being done. Monitor hemoglobin closely. 11. Coagulopathy related to liver insufficiency/vitamin K deficiency acute with chronic moderate alcohol use accessory basilar by hemodynamic changes from surgery, immunoglobulin and statin use. Patient is status post oral vitamin K and subsequently IV vitamin K. Dr. Colindres's recommended resuming aspirin and Plavix only once INR is normalized. Patient is scheduled to resume aspirin, Plavix and heparin subcu today as INR is improved. 12. Postoperative paroxysmal atrial fibrillation, unexpected but potential outcome of surgery. Amiodarone was initiated. Continue Lopressor. 13. Hyperglycemia secondary to steroids with no history of diabetes. Continue NovoLog scale can be continued while patient is on steroids. 14. ESBL urinary tract infection. Patient will be continued on ertapenem for another 7 days. 15. Bilateral pleural effusions expected outcome of CABG. Chest x-ray shows improvement. Discharge plan: Inpatient rehab at [facility] on Tuesday Impression and plan of care have been directed as dictated by the signing physician. Yecenia Holcomb nurse practitioner acting as scribe for signing physician.
[2018-01-10] MEDS ORDERED: FUROSEMIDE 20 MG TAB PO SCH (09:00)
== END 2018-01-09 16:00 | DRG 235 ==
LOC: 2ORMAIN 06:18 → 2SICU 16:28
PROVIDERS: ADMIT Surgery; ATTEND Surgery
PROC: 06BQ4ZZ Excision of Left Saphenous Vein, Percutaneous Endoscopic Approach (ICD-10-PCS; 2017-12-28)
PROC: B24BZZ4 Ultrasonography of Heart with Aorta, Transesophageal (ICD-10-PCS; 2017-12-28)
PROC: 5A1221Z Performance of Cardiac Output, Continuous (ICD-10-PCS; 2017-12-28)
PROC: 5A1223Z Performance of Cardiac Pacing, Continuous (ICD-10-PCS; 2017-12-28)
PROC: 4A1305C Monitoring of Arterial Flow, Coronary, Open Approach (ICD-10-PCS; 2017-12-28)
PROC: 30243N0 Transfusion of Autologous Red Blood Cells into Central Vein, Percutaneous Approach (ICD-10-PCS; 2017-12-28)
PROC: 30243K1 Transfusion of Nonautologous Frozen Plasma into Central Vein, Percutaneous Approach (ICD-10-PCS; 2017-12-28)
PROC: 30243N1 Transfusion of Nonautologous Red Blood Cells into Central Vein, Percutaneous Approach (ICD-10-PCS; 2017-12-28)
PROC: 02100Z9 Bypass Coronary Artery, One Artery from Left Internal Mammary, Open Approach (ICD-10-PCS; principal; 2017-12-28 09:30)
PROC: 021109W Bypass Coronary Artery, Two Arteries from Aorta with Autologous Venous Tissue, Open Approach (ICD-10-PCS; 2017-12-28 09:30)
PROC: 5A09557 Assistance with Respiratory Ventilation, Greater than 96 Consecutive Hours, Continuous Positive Airway Pressure (ICD-10-PCS; 2017-12-29)
DX: I25.119 Atherosclerotic heart disease of native coronary artery with unspecified angina pectoris (principal); G93.41 Metabolic encephalopathy; J96.21 Acute and chronic respiratory failure with hypoxia; D68.4 Acquired coagulation factor deficiency; D62 Acute posthemorrhagic anemia; E87.2 Acidosis; J44.1 Chronic obstructive pulmonary disease with (acute) exacerbation; F33.9 Major depressive disorder, recurrent, unspecified; J90 Pleural effusion, not elsewhere classified; J98.11 Atelectasis; I31.3 Pericardial effusion (noninflammatory); N39.0 Urinary tract infection, site not specified; N99.89 Other postprocedural complications and disorders of genitourinary system; I95.9 Hypotension, unspecified; E11.51 Type 2 diabetes mellitus with diabetic peripheral angiopathy without gangrene; E11.649 Type 2 diabetes mellitus with hypoglycemia without coma; E11.65 Type 2 diabetes mellitus with hyperglycemia; I48.0 Paroxysmal atrial fibrillation; I11.9 Hypertensive heart disease without heart failure; I08.1 Rheumatic disorders of both mitral and tricuspid valves; B96.20 Unspecified Escherichia coli [E. coli] as the cause of diseases classified elsewhere; Z16.12 Extended spectrum beta lactamase (ESBL) resistance; I70.213 Atherosclerosis of native arteries of extremities with intermittent claudication, bilateral legs; T38.0X5A Adverse effect of glucocorticoids and synthetic analogues, initial encounter; S00.83XA Contusion of other part of head, initial encounter; E78.5 Hyperlipidemia, unspecified; G89.29 Other chronic pain; M16.10 Unilateral primary osteoarthritis, unspecified hip; M51.36 Other intervertebral disc degeneration, lumbar region; M47.816 Spondylosis without myelopathy or radiculopathy, lumbar region; E03.9 Hypothyroidism, unspecified; F41.9 Anxiety disorder, unspecified; F17.201 Nicotine dependence, unspecified, in remission; F10.10 Alcohol abuse, uncomplicated; E66.9 Obesity, unspecified; Z68.26 Body mass index [BMI] 26.0-26.9, adult; Z79.82 Long term (current) use of aspirin; Z79.890 Hormone replacement therapy; Z79.899 Other long term (current) drug therapy; Z86.711 Personal history of pulmonary embolism; Z90.710 Acquired absence of both cervix and uterus; Z98.891 History of uterine scar from previous surgery; Z91.81 History of falling; Z96.1 Presence of intraocular lens; Z98.41 Cataract extraction status, right eye; Z98.42 Cataract extraction status, left eye; Z82.49 Family history of ischemic heart disease and other diseases of the circulatory system; Z80.1 Family history of malignant neoplasm of trachea, bronchus and lung
CPT/HCPCS: 36600; 71045; 71046; 76604; 80048; 80053; 81001; 82330; 82728; 82805; 83540; 83550; 83735; 84100; 84132; 85025; 85384; 85520; 85610; 85730; 86850; 86891; 86900; 86901; 86920; 87077; 87086; 87186; 93306; 93308; 94002; 94003; 94640; 94660; 94760

== ENCOUNTER 2018-02-06 12:34 | Emergency (ER) | payer MEDICARE, BC ==
[2018-02-06] MEDS ORDERED: SODIUM CHLORIDE 0.9% 500 ML 500 ML IV STA (13:23)
[2018-02-06 13:59] LABS: Basophils % (A) 0 %; Eosinophils # (A) 0.2 k/uL (0-0.7); Eosinophils % (A) 2 %; HCT 35.4 % (34.0-46.0); HGB 11.6 gm/dL (11.4-16.0); Lymphocytes # (A) 0.7 k/uL (1.0-4.8); Lymphocytes % (A) 7 %; MCH 30.6 pg (25.0-35.0); MCHC 32.6 g/dL (31.0-37.0); MCV 93.8 fL (80.0-100.0); Mean Platelet Volume 6.3; Monocytes # (A) 0.7 k/uL (0-1.0); Monocytes % (A) 7 %; Neutrophils # (A) 7.8 k/uL (1.3-7.7); Neutrophils % (A) 81 %; Platelet Count 337 k/uL (150-450); RBC 3.77 m/uL (3.80-5.40); RDW 15.6 % (11.5-15.5); WBC 9.6 k/uL (3.8-10.6)
[2018-02-06 14:10] LABS: Albumin 3.1 g/dL (3.5-5.0); Calcium 8.7 mg/dL (8.4-10.2); INR 1.4 (<1.2); Magnesium 1.4 mg/dL (1.6-2.3); Partial Thromboplastin Time 24.6 sec (22.0-30.0); Prothrombin Time 13.9 sec (9.0-12.0); Total Bilirubin 0.8 mg/dL (0.2-1.3); Total Protein 5.8 g/dL (6.3-8.2)
--- NOTE | 2018-02-06 14:10 | ED ---
General Adult HPI - General Chief complaint: Recheck/Abnormal Lab/Rx Stated complaint: low blood pressure 83/51 Time Seen by Provider: 02/06/18 13:12 Source: patient Mode of arrival: ambulatory Limitations: no limitations - History of Present Illness Initial comments: Dictation was produced using [employer] dictation software. please excuse any grammatical, word or spelling errors. Chief Complaint: 77-year-old female presents with low blood pressure. History of Present Illness: Patient is 77-year-old female she recently had bypass surgery done at her facility in December. She has a home health visiting nurse. Patient was evaluated by home health visiting nurse found to have blood pressure with systolic in the 80s. Medical blood pressure was obtained with a systolic in the 60s. Patient had just got home from rehab over the last week. She has been exerting herself no more than usual. Patient is on beta blockers and antihypertensive medications. Patient has no complaints at this time. The ROS documented in this emergency department record has been reviewed and confirmed by me. Those systems with pertinent positive or negative responses have been documented in the HPI. All other systems are other negative and/or noncontributory. - Related Data Previous Rx's Medication Instructions Recorded Acetaminophen Tab [Tylenol] 650 mg PO Q4HR PRN tab 01/09/18 Amiodarone [Cordarone] 400 mg PO BID tab 01/09/18 Ascorbic Acid [Vitamin C] 500 mg PO DAILY@1200 tab 01/09/18 Aspirin 81 mg PO DAILY chew 01/09/18 Atorvastatin [Lipitor] 40 mg PO DAILY tab 01/09/18 Bisacodyl [Dulcolax] 10 mg RECTAL DAILY PRN supp 01/09/18 Budesonide [Pulmicort] 0.5 mg INHALATION RT-BID nebu 01/09/18 Clopidogrel [Plavix] 75 mg PO DAILY tab 01/09/18 Ertapenem [INVanz] 1 gm IVPB Q24H #7 bag 01/09/18 Ferrous Sulfate [Iron (65 MG 325 mg PO W/LUNCH tab 01/09/18 Elemental)] Formoterol Fumarate [Perforomist] 20 mcg INHALATION RT-BID nebu 01/09/18 Furosemide [Lasix] 20 mg PO DAILY tab 01/09/18 Insulin Aspart [NovoLOG 0 unit SQ ACHS vial 01/09/18 (formulary)] Ipratropium-Albuterol Nebulize 3 ml INHALATION RT-Q2H PRN 01/09/18 [Duoneb 0.5 mg-3 mg/3 ml Soln] ampul.neb Ipratropium-Albuterol Nebulize 3 ml INHALATION RT-QID ampul.neb 01/09/18 [Duoneb 0.5 mg-3 mg/3 ml Soln] Levothyroxine Sodium [Synthroid] 25 mcg PO DAILY@0630 tab 01/09/18 Losartan [Cozaar] 100 mg PO DAILY tab 01/09/18 Magnesium Hydroxide [Milk of 2,400 mg PO BID PRN ml 01/09/18 Magnesia Concentrate] Melatonin 6 mg PO HS tablet 01/09/18 Metoprolol Tartrate [Lopressor] 25 mg PO BID tab 01/09/18 Pantoprazole [Protonix] 40 mg PO AC-BRKFST tablet. 01/09/18 Potassium Chloride ER [K-Dur 10] 10 meq PO DAILY #14 tab 01/09/18 SILVER sulfADIAZINE CREAM 1 applic TOPICAL DAILY applic 01/09/18 [Silvadene Cream] Sennosides-Docusate Sodium 2 each PO HS tab 01/09/18 [Senokot-S] Thiamine [Vitamin B-1] 100 mg PO DAILY@1200 tab 01/09/18 buPROPion [Wellbutrin] 75 mg PO DAILY tab 01/09/18 methylPREDNISolone Dose Pack 16 mg PO DAILY tab 01/09/18 [Medrol Dose Pack] Nitrofurantoin Monohyd/M-Cryst 100 mg PO Q12HR 7 Days #14 cap 02/06/18 [Macrobid] Allergies Allergy/AdvReac Type Severity Reaction Status Date / Time No Known Allergies Allergy Verified 02/06/18 12:43 Review of Systems ROS Statement: Those systems with pertinent positive or pertinent negative responses have been documented in the HPI. ROS Other: All systems not noted in ROS Statement are negative. Past Medical History Past Medical History: COPD, Hypertension, Pulmonary Embolus (PE), Thyroid Disorder Additional Past Medical History / Comment(s): Multivessel coronary artery disease with triple-vessel involvement, COPD, chronic back pain, chronic degenerative arthritis with hip pain, remote history of pulmonary embolism, hypothyroidism. History of Any Multi-Drug Resistant Organisms: ESBL Date of last positivie culture/infection: 01/05/18 MDRO Source:: esbl urine Past Surgical History: Appendectomy, Section, Hysterectomy Additional Past Surgical History / Comment(s): Section X2, bilateral cataract removal with lens implants. Past Anesthesia/Blood Transfusion Reactions: No Reported Reaction Past Psychological History: No Psychological Hx Reported Smoking Status: Unknown if ever smoked Past Alcohol Use History: None Reported Past Drug Use History: None Reported - Past Family History Brother(s) Family Medical History: Cancer Additional Family Medical History / Comment(s): Patient does not have any brothers. Daughter(s) Additional Family Medical History / Comment(s): Patient has 3 daughters and 2 have from aneursym but patient does not know site. Son(s) Additional Family Medical History / Comment(s): Patient has 3 sons and one has from lung cancer. Father Additional Family Medical History / Comment(s): Father at age 79 and patient does not know cause or medical history. Mother Additional Family Medical History / Comment(s): Mother dies at age 84 from old age. Sister(s) Additional Family Medical History / Comment(s): Patient has one sister wit CAD status post 4 stents. General Exam - General Exam Comments Initial Comments: PHYSICAL EXAM: General Impression: Alert and oriented x3, not in acute distress HEENT: Normocephalic atraumatic, extra-ocular movements intact, pupils equal and reactive to light bilaterally, mucous membranes moist. Cardiovascular: Heart regular rate and rhythm, S1&S2 audible, no murmurs, rubs or gallops Chest: Lungs clear to auscultation bilaterally, no rhonchi, no wheeze, no rales Abdomen: Bowel sounds present, abdomen soft, non-tender, non-distended, no organomegaly Musculoskeletal: Pulses present and equal in all extremities, no peripheral edema Motor: Power 5/5 bilaterally, no focal deficits noted Neurological: CN II-XII grossly intact, no focal motor or sensory deficits noted Skin: Intact with no visualized rashes Psych: Normal affect and mood Limitations: no limitations Course Vital Signs 02/06/18 02/06/18 02/06/18 12:41 13:44 14:58 Temperature 97.4 F L 97.6 F Pulse Rate 62 62 Respiratory 20 16 Rate Blood Pressure 108/66 102/62 116/66 O2 Sat by Pulse 99 98 Oximetry Medical Decision Making - Medical Decision Making ED course: 77-year-old female presents with low blood pressure at home. Vital signs upon arrival are within acceptable limits. Patient's blood pressure is 102/62 which is her normal blood pressureLaboratory evaluation obtained. CBC unremarkable. Coag panel unremarkable. Metabolic panel shows sodium 132. There is mild non-gap acidosis. Renal markers slightly elevated. Urinalysis shows findings to suggest urinary tract infection. Patient was observed in emergency department for several hours and placed on the monitor without any acute processes. Patient's blood pressure has been normal. At this point I don 't believe patient requires inpatient observation admission. Patient has good social situation. She is under the care of her daughter who is reliable. They do have blood pressure cuff machine. They're told to return to the emergency department if she has any recurrent symptoms. They're told to check her blood pressure frequently. Otherwise patient given follow-up with primary care physician upon discharge. Patient has findings of urinary tract infection on her urinalysis per she is given a be given by mouth antibiotics. Urine sent for culture. - Lab Data Result diagrams: 02/06/18 13:40 02/06/18 13:40 Lab Results 02/06/18 02/06/18 02/06/18 Range/Units 13:40 13:40 13:40 WBC 9.6 (3.8-10.6) k/uL RBC 3.77 L (3.80-5.40) m/uL Hgb 11.6 (11.4-16.0) gm/dL Hct 35.4 (34.0-46.0) % MCV 93.8 (80.0-100.0) fL MCH 30.6 (25.0-35.0) pg MCHC 32.6 (31.0-37.0) g/dL RDW 15.6 H (11.5-15.5) % Plt Count 337 (150-450) k/uL Neutrophils % 81 % Lymphocytes % 7 % Monocytes % 7 % Eosinophils % 2 % Basophils % 0 % Neutrophils # 7.8 H (1.3-7.7) k/uL Lymphocytes # 0.7 L (1.0-4.8) k/uL Monocytes # 0.7 (0-1.0) k/uL Eosinophils # 0.2 (0-0.7) k/uL Basophils # 0.0 (0-0.2) k/uL PT (9.0-12.0) sec INR (<1.2) APTT (22.0-30.0) sec Sodium 132 L (137-145) mmol/L Potassium 5.0 (3.5-5.1) mmol/L Chloride 102 (98-107) mmol/L Carbon Dioxide 21 L (22-30) mmol/L Anion Gap 9 mmol/L BUN 27 H (7-17) mg/dL Creatinine 1.37 H (0.52-1.04) mg/dL Est GFR (CKD-EPI)AfAm 43 (>60 ml/min/1.73 sqM) Est GFR (CKD-EPI)NonAf 37 (>60 ml/min/1.73 sqM) Glucose 99 (74-99) mg/dL Calcium 8.7 (8.4-10.2) mg/dL Magnesium 1.4 L (1.6-2.3) mg/dL Total Bilirubin 0.8 (0.2-1.3) mg/dL AST 31 (14-36) U/L ALT 33 (9-52) U/L Alkaline Phosphatase 112 (38-126) U/L Total Creatine Kinase 59 (30-135) U/L CK-MB (CK-2) 2.1 (0.0-2.4) ng/mL CK-MB (CK-2) Rel Index 3.6 Troponin I <0.012 (0.000-0.034) ng/mL Total Protein 5.8 L (6.3-8.2) g/dL Albumin 3.1 L (3.5-5.0) g/dL Urine Color Urine Appearance (Clear) Urine pH (5.0-8.0) Ur Specific [place] (1.001-1.035) Urine Protein (Negative) Urine Glucose (UA) (Negative) Urine Ketones (Negative) Urine Blood (Negative) Urine Nitrite (Negative) Urine Bilirubin (Negative) Urine Urobilinogen (<2.0) mg/dL Ur Leukocyte Esterase (Negative) Urine RBC (0-5) /hpf Urine WBC (0-5) /hpf Urine WBC Clumps (None) /hpf Ur Squamous Epith Cells (0-4) /hpf Urine Bacteria (None) /hpf Hyaline Casts (0-2) /lpf Urine Mucus (None) /hpf 02/06/18 02/06/18 Range/Units 13:40 17:00 WBC (3.8-10.6) k/uL RBC (3.80-5.40) m/uL Hgb (11.4-16.0) gm/dL Hct (34.0-46.0) % MCV (80.0-100.0) fL MCH (25.0-35.0) pg MCHC (31.0-37.0) g/dL RDW (11.5-15.5) % Plt Count (150-450) k/uL Neutrophils % % Lymphocytes % % Monocytes % % Eosinophils % % Basophils % % Neutrophils # (1.3-7.7) k/uL Lymphocytes # (1.0-4.8) k/uL Monocytes # (0-1.0) k/uL Eosinophils # (0-0.7) k/uL Basophils # (0-0.2) k/uL PT 13.9 H (9.0-12.0) sec INR 1.4 H (<1.2) APTT 24.6 (22.0-30.0) sec Sodium (137-145) mmol/L Potassium (3.5-5.1) mmol/L Chloride (98-107) mmol/L Carbon Dioxide (22-30) mmol/L Anion Gap mmol/L BUN (7-17) mg/dL Creatinine (0.52-1.04) mg/dL Est GFR (CKD-EPI)AfAm (>60 ml/min/1.73 sqM) Est GFR (CKD-EPI)NonAf (>60 ml/min/1.73 sqM) Glucose (74-99) mg/dL Calcium (8.4-10.2) mg/dL Magnesium (1.6-2.3) mg/dL Total Bilirubin (0.2-1.3) mg/dL AST (14-36) U/L ALT (9-52) U/L Alkaline Phosphatase (38-126) U/L Total Creatine Kinase (30-135) U/L CK-MB (CK-2) (0.0-2.4) ng/mL CK-MB (CK-2) Rel Index Troponin I (0.000-0.034) ng/mL Total Protein (6.3-8.2) g/dL Albumin (3.5-5.0) g/dL Urine Color Yellow Urine Appearance Cloudy H (Clear) Urine pH 5.5 (5.0-8.0) Ur Specific [place] 1.011 (1.001-1.035) Urine Protein Negative (Negative) Urine Glucose (UA) Negative (Negative) Urine Ketones Negative (Negative) Urine Blood Negative (Negative) Urine Nitrite Negative (Negative) Urine Bilirubin Negative (Negative) Urine Urobilinogen <2.0 (<2.0) mg/dL Ur Leukocyte Esterase Moderate H (Negative) Urine RBC <1 (0-5) /hpf Urine WBC 41 H (0-5) /hpf Urine WBC Clumps Many H (None) /hpf Ur Squamous Epith Cells 1 (0-4) /hpf Urine Bacteria Many H (None) /hpf Hyaline Casts 60 H (0-2) /lpf Urine Mucus Rare H (None) /hpf Disposition Clinical Impression: Wellness examination Disposition: HOME SELF-CARE Condition: Good Instructions: Hypotension (ED) Prescriptions: Nitrofurantoin Monohyd/M-Cryst [Macrobid] 100 mg PO Q12HR 7 Days #14 cap Is patient prescribed a controlled substance at d/c from ED?: No Referrals: Jessica Stanley MD [Primary Care Provider] - 1-2 days Time of Disposition: 17:42
[2018-02-06 14:15] LABS: Creatine Kinase 59 U/L (30-135)
[2018-02-06 14:28] LABS: Creatine Kinase MB 2.1 ng/mL (0.0-2.4); Troponin I <0.012 ng/mL (0.000-0.034)
[2018-02-06 14:59] VITALS: RESP 16; TEMP 97.6
--- NOTE | 2018-02-06 15:13 | XR ---
EXAMINATION TYPE: XR chest 2V DATE OF EXAM: 02/06/2018 COMPARISON: 01/09/2018 HISTORY: 77-year-old female with syncope TECHNIQUE: PA and lateral views FINDINGS: Heart borderline enlarged. Hyperinflation with relative upper lung lucencies. Rightward patient rotat ion. Median sternotomy wires. Small left greater than right pleural effusions with adjacent opacity. IMPRESSION: COPD with borderline heart size. Small left greater than right pleural effusions with adjacent atelec tasis and/or consolidation. Correlate for possible mild CHF as an etiology.
[2018-02-06] MEDS ORDERED: MAGNESIUM OXIDE 400 MG TAB PO STA (16:22)
[2018-02-06 17:32] LABS: Appearance,Urine Cloudy (Clear); Bacteria,Urine Many /hpf; Bilirubin,Urine Negative (Negative); Blood,Urine Negative (Negative); Color,Urine Yellow; Glucose,Urine (UA) Negative (Negative); Hyaline Casts,Urine 60 /lpf (0-2); Ketones,Urine Negative (Negative); Leukocyte Esterase,Urine Moderate (Negative); Mucus,Urine Rare /hpf; Nitrite,Urine Negative (Negative); PH, Urine 5.5 (5.0-8.0); Protein,Urine Negative (Negative); RBC,Urine <1 /hpf (0-5); Specific Gravity,Urine 1.011 (1.001-1.035); Squamous Epithelial Cell,Urine 1 /hpf (0-4); Urobilinogen,Urine <2.0 mg/dL (<2.0)
[2018-02-06 17:39] VITALS: BP 110/61; PULSE 64
== END 2018-02-06 17:50 | disposition home or self-care (01) ==
LOC: EC 12:34
DX: Z00.01 Encounter for general adult medical examination with abnormal findings (principal); E87.2 Acidosis
CPT/HCPCS: 36415; 71046; 80053; 81001; 82550; 82553; 83735; 84484; 85025; 85610; 85730; 87077; 87086; 87186; 96360; 99285

== ENCOUNTER 2018-02-19 11:41 | Inpatient (IN) | payer MEDICARE, BC ==
[2018-02-19] MEDS ORDERED: ONDANSETRON 4 MG/2 ML VIAL IVP STA (11:45)
[2018-02-19] MEDS ORDERED: SODIUM CHLORIDE 0.9% 1,000 ML IV STA (11:45)
[2018-02-19] MEDS ORDERED: SODIUM CHLORIDE 0.9% 500 ML 500 ML IV STA (11:45)
--- NOTE | 2018-02-19 11:48 | ED ---
General Adult HPI - General Stated complaint: Hypotensive Time Seen by Provider: 02/19/18 11:41 Source: RN notes reviewed - History of Present Illness Initial comments: This is a 77-year-old female presents emergency department with past medical history significant for COPD and bypass surgery December. She states and so his family agree that the patient's becoming weaker and weaker over the last few days Tuesday she seems to be pretty good other day she is so weak she can barely stand. Today she can't walk couple feet before she had to sit back down. Patient states she's deals weak even in bed. Patient is not eating or drinking much according to family because she's nauseated. Patient denies any chest pain palpitations difficulty breathing shortness of breath patient denies any abdominal pain patient denies any actual vomiting she denies diarrhea. Patient denies any recent fever chills or cough. Patient denies any dysuria hematuria urinary frequency. Patient denies any recent injury or trauma. According to EMS her blood pressure was in the 70s with one reading in the last reading was in the mid 90s systolic. - Related Data Home Medications Medication Instructions Recorded Confirmed Amiodarone [Cordarone] 200 mg PO BID 02/19/18 02/19/18 Docusate [Colace] 100 mg PO BID 02/19/18 02/19/18 HYDROcodone/APAP 10-325MG [[place] 1 tab PO Q8H PRN 02/19/18 02/19/18 10-325] Potassium Chloride ER [K-Dur 20] 20 meq PO DAILY 02/19/18 02/19/18 rOPINIRole HCL [Requip] 0.25 mg PO HS 02/19/18 02/19/18 Previous Rx's Medication Instructions Recorded Atorvastatin [Lipitor] 40 mg PO DAILY tab 01/09/18 Furosemide [Lasix] 20 mg PO DAILY tab 01/09/18 Ipratropium-Albuterol Nebulize 3 ml INHALATION RT-QID ampul.neb 01/09/18 [Duoneb 0.5 mg-3 mg/3 ml Soln] Losartan [Cozaar] 100 mg PO DAILY tab 01/09/18 Metoprolol Tartrate [Lopressor] 25 mg PO BID tab 01/09/18 buPROPion [Wellbutrin] 75 mg PO DAILY tab 01/09/18 Allergies Allergy/AdvReac Type Severity Reaction Status Date / Time diazepam [From Valium] AdvReac DROWSINESS Verified 02/19/18 12:35 Review of Systems ROS Statement: Those systems with pertinent positive or pertinent negative responses have been documented in the HPI. ROS Other: All systems not noted in ROS Statement are negative. Past Medical History Past Medical History: COPD, Hypertension, Pulmonary Embolus (PE), Thyroid Disorder Additional Past Medical History / Comment(s): Multivessel coronary artery disease with triple-vessel involvement, COPD, chronic back pain, chronic degenerative arthritis with hip pain, remote history of pulmonary embolism, hypothyroidism. History of Any Multi-Drug Resistant Organisms: ESBL Date of last positivie culture/infection: 02/06/18 MDRO Source:: esbl urine Past Surgical History: Appendectomy, Section, Hysterectomy Additional Past Surgical History / Comment(s): Section X2, bilateral cataract removal with lens implants. Past Anesthesia/Blood Transfusion Reactions: No Reported Reaction Past Psychological History: No Psychological Hx Reported Smoking Status: Unknown if ever smoked Past Alcohol Use History: None Reported Past Drug Use History: None Reported - Past Family History Brother(s) Family Medical History: Cancer Additional Family Medical History / Comment(s): Patient does not have any brothers. Daughter(s) Additional Family Medical History / Comment(s): Patient has 3 daughters and 2 have from aneursym but patient does not know site. Son(s) Additional Family Medical History / Comment(s): Patient has 3 sons and one has from lung cancer. Father Additional Family Medical History / Comment(s): Father at age 79 and patient does not know cause or medical history. Mother Additional Family Medical History / Comment(s): Mother dies at age 84 from old age. Sister(s) Additional Family Medical History / Comment(s): Patient has one sister wit CAD status post 4 stents. General Exam - General Exam Comments Initial Comments: GENERAL: Patient is well-developed and well-nourished. Patient is nontoxic and well- hydrated and is in mild distress. ENT: Neck is soft and supple. No significant lymphadenopathy is noted. Oropharynx is clear. Moist mucous membranes. Neck has full range of motion without eliciting any pain. EYES: The sclera were anicteric and conjunctiva were pink and moist. Extraocular movements were intact and pupils were equal round and reactive to light. Eyelids were unremarkable. PULMONARY: Unlabored respirations. Good breath sounds bilaterally. No audible rales rhonchi or wheezing was noted. CARDIOVASCULAR: There is a regular rate and rhythm without any murmurs gallops or rubs. ABDOMEN: Soft and nontender with normal bowel sounds. No palpable organomegaly was noted. There is no palpable pulsatile mass. SKIN: Skin is clear with no lesions or rashes and otherwise unremarkable. NEUROLOGIC: Patient is alert and oriented x3. Cranial nerves II through XII are grossly intact. Motor and sensory are also intact. Normal speech, volume and content. Symmetrical smile. MUSCULOSKELETAL: Normal extremities with adequate strength and full range of motion. No lower extremity swelling or edema. No calf tenderness. LYMPHATICS: No significant lymphadenopathy is noted PSYCHIATRIC: Normal psychiatric evaluation. Course Vital Signs 02/19/18 02/19/18 11:55 12:59 Temperature 97.1 F L Pulse Rate 56 L Pulse Rate [ 57 L Sitting] Pulse Rate [ 62 Standing] Pulse Rate [ 47 L Supine] Respiratory 18 Rate Blood Pressure 94/60 Blood Pressure 119/57 [Sitting] Blood Pressure 63/40 [Standing] Blood Pressure 101/74 [Supine] O2 Sat by Pulse 95 Oximetry Medical Decision Making - Medical Decision Making EKG shows a junctional rhythm at 53 bpm QRS is 94 QT interval is 526 QTC is 493. Patient's EKG is a very poor quality and though I don't see any obvious EKG changes quality might prevent me from sitting still. Patient is unable to sit still to get the EKG. Chest x-ray shows a pleural effusion. Patient got 2 L of fluid in the emergency department. I spoke with Dr. Stanley he agreed to admit the patient I admitted the patient for orthostatic hypotension and continue to fluid administration - Lab Data Result diagrams: 02/19/18 12:25 02/19/18 12:25 Lab Results 02/19/18 02/19/18 02/19/18 Range/Units 12:25 12:25 12:25 WBC 9.2 (3.8-10.6) k/uL RBC 3.76 L (3.80-5.40) m/uL Hgb 11.4 (11.4-16.0) gm/dL Hct 35.9 (34.0-46.0) % MCV 95.5 (80.0-100.0) fL MCH 30.4 (25.0-35.0) pg MCHC 31.8 (31.0-37.0) g/dL RDW 16.3 H (11.5-15.5) % Plt Count 310 (150-450) k/uL Neutrophils % 75 % Lymphocytes % 5 % Monocytes % 7 % Eosinophils % 12 % Basophils % 0 % Neutrophils # 6.9 (1.3-7.7) k/uL Lymphocytes # 0.5 L (1.0-4.8) k/uL Monocytes # 0.6 (0-1.0) k/uL Eosinophils # 1.1 H (0-0.7) k/uL Basophils # 0.0 (0-0.2) k/uL Hypochromasia Slight Anisocytosis Slight PT (9.0-12.0) sec INR (<1.2) APTT (22.0-30.0) sec Sodium 135 L (137-145) mmol/L Potassium 4.6 (3.5-5.1) mmol/L Chloride 106 (98-107) mmol/L Carbon Dioxide 22 (22-30) mmol/L Anion Gap 7 mmol/L BUN 22 H (7-17) mg/dL Creatinine 1.40 H (0.52-1.04) mg/dL Est GFR (CKD-EPI)AfAm 41 (>60 ml/min/1.73 sqM) Est GFR (CKD-EPI)NonAf 36 (>60 ml/min/1.73 sqM) Glucose 126 H (74-99) mg/dL Plasma Lactic Acid Lang (0.7-2.0) mmol/L Calcium 8.3 L (8.4-10.2) mg/dL Magnesium 1.5 L (1.6-2.3) mg/dL Total Bilirubin 0.7 (0.2-1.3) mg/dL AST 116 H (14-36) U/L ALT 67 H (9-52) U/L Alkaline Phosphatase 220 H (38-126) U/L Total Creatine Kinase 63 (30-135) U/L CK-MB (CK-2) 1.3 (0.0-2.4) ng/mL CK-MB (CK-2) Rel Index 2.1 Troponin I 0.014 (0.000-0.034) ng/mL Total Protein 5.5 L (6.3-8.2) g/dL Albumin 2.9 L (3.5-5.0) g/dL Urine Color Urine Appearance (Clear) Urine pH (5.0-8.0) Ur Specific [place] (1.001-1.035) Urine Protein (Negative) Urine Glucose (UA) (Negative) Urine Ketones (Negative) Urine Blood (Negative) Urine Nitrite (Negative) Urine Bilirubin (Negative) Urine Urobilinogen (<2.0) mg/dL Ur Leukocyte Esterase (Negative) Urine RBC (0-5) /hpf Urine WBC (0-5) /hpf Ur Squamous Epith Cells (0-4) /hpf Urine Bacteria (None) /hpf Hyaline Casts (0-2) /lpf Urine Mucus (None) /hpf 02/19/18 02/19/18 02/19/18 Range/Units 12:25 12:25 14:00 WBC (3.8-10.6) k/uL RBC (3.80-5.40) m/uL Hgb (11.4-16.0) gm/dL Hct (34.0-46.0) % MCV (80.0-100.0) fL MCH (25.0-35.0) pg MCHC (31.0-37.0) g/dL RDW (11.5-15.5) % Plt Count (150-450) k/uL Neutrophils % % Lymphocytes % % Monocytes % % Eosinophils % % Basophils % % Neutrophils # (1.3-7.7) k/uL Lymphocytes # (1.0-4.8) k/uL Monocytes # (0-1.0) k/uL Eosinophils # (0-0.7) k/uL Basophils # (0-0.2) k/uL Hypochromasia Anisocytosis PT 13.7 H (9.0-12.0) sec INR 1.3 H (<1.2) APTT 23.5 (22.0-30.0) sec Sodium (137-145) mmol/L Potassium (3.5-5.1) mmol/L Chloride (98-107) mmol/L Carbon Dioxide (22-30) mmol/L Anion Gap mmol/L BUN (7-17) mg/dL Creatinine (0.52-1.04) mg/dL Est GFR (CKD-EPI)AfAm (>60 ml/min/1.73 sqM) Est GFR (CKD-EPI)NonAf (>60 ml/min/1.73 sqM) Glucose (74-99) mg/dL Plasma Lactic Acid [place] 1.9 (0.7-2.0) mmol/L Calcium (8.4-10.2) mg/dL Magnesium (1.6-2.3) mg/dL Total Bilirubin (0.2-1.3) mg/dL AST (14-36) U/L ALT (9-52) U/L Alkaline Phosphatase (38-126) U/L Total Creatine Kinase (30-135) U/L CK-MB (CK-2) (0.0-2.4) ng/mL CK-MB (CK-2) Rel Index Troponin I (0.000-0.034) ng/mL Total Protein (6.3-8.2) g/dL Albumin (3.5-5.0) g/dL Urine Color Yellow Urine Appearance Cloudy H (Clear) Urine pH 5.0 (5.0-8.0) Ur Specific [place] 1.007 (1.001-1.035) Urine Protein Negative (Negative) Urine Glucose (UA) Negative (Negative) Urine Ketones Negative (Negative) Urine Blood Negative (Negative) Urine Nitrite Negative (Negative) Urine Bilirubin Negative (Negative) Urine Urobilinogen <2.0 (<2.0) mg/dL Ur Leukocyte Esterase Moderate H (Negative) Urine RBC 2 (0-5) /hpf Urine WBC 5 (0-5) /hpf Ur Squamous Epith Cells 17 H (0-4) /hpf Urine Bacteria Many H (None) /hpf Hyaline Casts 16 H (0-2) /lpf Urine Mucus Rare H (None) /hpf Disposition Clinical Impression: Orthostatic hypotension Disposition: ADMITTED IP TO THIS [facility] Referrals: Jessica Stanley MD [Primary Care Provider] - 1-2 days Time of Disposition: 15:34
[2018-02-19 12:46] LABS: Anisocytosis Slight; Basophils % (A) 0 %; Eosinophils # (A) 1.1 k/uL (0-0.7); Eosinophils % (A) 12 %; HCT 35.9 % (34.0-46.0); HGB 11.4 gm/dL (11.4-16.0); Hypochromasia Slight; Lymphocytes # (A) 0.5 k/uL (1.0-4.8); Lymphocytes % (A) 5 %; MCH 30.4 pg (25.0-35.0); MCHC 31.8 g/dL (31.0-37.0); MCV 95.5 fL (80.0-100.0); Mean Platelet Volume 6.5; Monocytes # (A) 0.6 k/uL (0-1.0); Monocytes % (A) 7 %; Neutrophils # (A) 6.9 k/uL (1.3-7.7); Neutrophils % (A) 75 %; Platelet Count 310 k/uL (150-450); RBC 3.76 m/uL (3.80-5.40); RDW 16.3 % (11.5-15.5); WBC 9.2 k/uL (3.8-10.6)
[2018-02-19 12:51] LABS: Albumin 2.9 g/dL (3.5-5.0); Calcium 8.3 mg/dL (8.4-10.2); Magnesium 1.5 mg/dL (1.6-2.3); Potassium 4.6 mmol/L (3.5-5.1); Total Bilirubin 0.7 mg/dL (0.2-1.3); Total Protein 5.5 g/dL (6.3-8.2)
[2018-02-19 12:58] LABS: INR 1.3 (<1.2); Partial Thromboplastin Time 23.5 sec (22.0-30.0); Prothrombin Time 13.7 sec (9.0-12.0)
[2018-02-19 13:07] LABS: Creatine Kinase MB 1.3 ng/mL (0.0-2.4); Troponin I 0.014 ng/mL (0.000-0.034)
--- NOTE | 2018-02-19 14:01 | XR ---
EXAMINATION TYPE: XR chest 2V DATE OF EXAM: 02/19/2018 HISTORY: Weakness. REFERENCE: Previous study dated 02/06/2018. FINDINGS: There has been a previous midline sternotomy. Lung volumes are prominent. There is continuing left basilar airspace disease. There is a left-sided effusion. Heart size is obscured. Right lung is clear. IMPRESSION: 1. COPD. 2. LEFT BASILAR AIRSPACE DISEASE. THIS APPEARS TO HAVE WORSENED. 3. LEFT-SIDED EFFUSION.
[2018-02-19 14:33] LABS: Appearance,Urine Cloudy (Clear); Bacteria,Urine Many /hpf; Bilirubin,Urine Negative (Negative); Blood,Urine Negative (Negative); Color,Urine Yellow; Glucose,Urine (UA) Negative (Negative); Hyaline Casts,Urine 16 /lpf (0-2); Ketones,Urine Negative (Negative); Leukocyte Esterase,Urine Moderate (Negative); Mucus,Urine Rare /hpf; Nitrite,Urine Negative (Negative); Protein,Urine Negative (Negative); RBC,Urine 2 /hpf (0-5); Specific Gravity,Urine 1.007 (1.001-1.035); Squamous Epithelial Cell,Urine 17 /hpf (0-4); Urobilinogen,Urine <2.0 mg/dL (<2.0); WBC,Urine 5 /hpf (0-5)
[2018-02-19] MEDS ORDERED: SODIUM CHLORIDE 0.9% 1,000 ML IV ONE (16:00)
[2018-02-19] MEDS ORDERED: HYDROcodone/APAP 10-325MG 1 EACH TAB PO PRN (17:34)
[2018-02-19] MEDS ORDERED: AMIODARONE 200 MG TAB PO SCH (21:00)
[2018-02-19] MEDS: MAGNESIUM SULFATE-D5W PMX 1 GM in DEXTROSE/WATER 1 100ML.BAG IVPB SCH ×2 (21:31→23:13)
[2018-02-19] MEDS: METOPROLOL TARTRATE 25 MG TAB PO SCH (21:32)
[2018-02-19] MEDS: buPROPion 75 MG TAB PO SCH (21:32)
[2018-02-19] MEDS: NYSTATIN 100,000 UNIT/ML SUSP 500,000 UNIT/5 ML CUP PO SCH (21:33)
--- NOTE | 2018-02-19 21:48 | P.HPIM ---
History of Present Illness H&P Date: 02/19/18 Chief Complaint: Orthostatic hypotension with left pleural effusion. This is a 77 year-old female one of my patient with a previous medical history significant for CAD post CABG x3 that was done recently with LOPES to LAD and SVG to OM1 and SVG to PDA that was done about a month ago, hypertension and hypertensive cardiovascular disease, hyperlipidemia, COPD, PAD , and remote history of pulmonary embolism, spondylosis of the Lumbar spine, patient was discharged from [facility] after she has had inpatient rehabilitation due medical debility post CABG and she has done well till recently when she has lost her appetite and according to her family she has not been eating or drinking much and had significant weight loss and mild short term memory loss, and had recurrent falls, on 02/06/2018 she was dizzy and was found to have orthostatic hypotension and was treated in the ER and was sent home on Macrobid 100 mg orally bid for 1 week and was given IV Fluid and was supposed to follow up with me in the office in 2 days but she never made an appointment , upon questioning her he stated that she has been very weak and he could not bring her to the office , patient has had [facility] and has been seen regularly by her nurse and eventually she was brought today to the ER for similar symptoms and she was not able to eat or drink much, had a CXR that showed left pleural effusion with consolidation that appeared worse and had low magnesium, with elevated LFTs and Orthostatic hypotension, she was give IV fluid and was started on IV ABX and held both Lipitor and Amiodarone and obtained cardiology consult and pulmonary consult, with PT evaluation,patient had some thrush in her mouth and will be started on Nystatin swish and swallow . Review of Systems Constitutional: Reports anorexia, Reports chronic pain, Reports fatigue, Reports weakness, Reports weight loss Eyes: denies blurred vision, denies bulging eye, denies decreased vision Ears: bilateral: decreased hearing Ears, nose, mouth and throat: Reports dysphagia, Reports vertigo, Denies neck lump, Denies sore throat, Denies voice changes Cardiovascular: Reports decreased exercise tolerance, Reports lightheadedness, Reports shortness of breath, Denies chest pain, Denies syncope Respiratory: Reports home oxygen, Reports wheezing, Denies congestion, Denies cough, Denies cough with sputum, Denies sleep apnea, Denies snoring Gastrointestinal: Reports early satiety, Reports loss of appetite, Denies bloating, Denies BRBPR, Denies dyspepsia, Denies heartburn, Denies melena, Denies vomiting Genitourinary: Denies dysuria, Denies hematuria Menstruation: Reports postmenopausal Musculoskeletal: Reports frequent falls, Reports gait dysfunction Musculoskeletal: absent: ankle pain, ankle stiffness, ankle swelling, elbow pain , elbow stiffness, elbow swelling, foot pain, foot stiffness, foot swelling, hand pain, hand stiffness, hand swelling, hip pain, hip stiffness, hip swelling , knee pain, knee stiffness, knee swelling, shoulder pain, shoulder stiffness, shoulder swelling, wrist pain, wrist stiffness, wrist swelling Integumentary: Denies pruritus, Denies rash Neurological: Reports gait dysfunction, Reports memory loss, Reports weakness Psychiatric: Reports anxiety, Reports change in appetite, Reports memory loss Endocrine: Denies fatigue, Denies weight change Past Medical History Past Medical History: Coronary Artery Disease (CAD), COPD, GERD/Reflux, Hyperlipidemia, Hypertension, Osteoarthritis (OA), Pulmonary Embolus (PE), Thyroid Disorder, Vascular Disorder Additional Past Medical History / Comment(s): Multivessel coronary artery disease with triple-vessel involvement, COPD, chronic back pain, chronic degenerative arthritis with hip pain, remote history of pulmonary embolism, hypothyroidism. History of Any Multi-Drug Resistant Organisms: ESBL Date of last positivie culture/infection: 02/06/18 MDRO Source:: esbl urine Past Surgical History: Appendectomy, Section, Hysterectomy Additional Past Surgical History / Comment(s): Section X2, bilateral cataract removal with lens implants. Past Anesthesia/Blood Transfusion Reactions: No Reported Reaction Past Psychological History: No Psychological Hx Reported Smoking Status: Unknown if ever smoked Past Alcohol Use History: None Reported Past Drug Use History: None Reported - Past Family History Brother(s) Family Medical History: Cancer Additional Family Medical History / Comment(s): Patient does not have any brothers. Daughter(s) Additional Family Medical History / Comment(s): Patient has 3 daughters and 2 have from aneursym but patient does not know site. Son(s) Additional Family Medical History / Comment(s): Patient has 3 sons and one has from lung cancer. Father Additional Family Medical History / Comment(s): Father at age 79 and patient does not know cause or medical history. Mother Additional Family Medical History / Comment(s): Mother dies at age 84 from old age. Sister(s) Additional Family Medical History / Comment(s): Patient has one sister wit CAD status post 4 stents. Medications and Allergies Home Medications Medication Instructions Recorded Confirmed Type Atorvastatin [Lipitor] 40 mg PO DAILY tab 01/09/18 02/19/18 Rx Furosemide [Lasix] 20 mg PO DAILY tab 01/09/18 02/19/18 Rx Ipratropium-Albuterol Nebulize 3 ml INHALATION RT-QID ampul.neb 01/09/18 Rx [Duoneb 0.5 mg-3 mg/3 ml Soln] Losartan [Cozaar] 100 mg PO DAILY tab 01/09/18 02/19/18 Rx Metoprolol Tartrate [Lopressor] 25 mg PO BID tab 01/09/18 02/19/18 Rx Amiodarone [Cordarone] 200 mg PO BID 02/19/18 02/19/18 History Docusate [Colace] 100 mg PO BID 02/19/18 02/19/18 History HYDROcodone/APAP 10-325MG [[place] 1 tab PO Q8H PRN 02/19/18 02/19/18 History 10-325] Potassium Chloride ER [K-Dur 20] 20 meq PO DAILY 02/19/18 02/19/18 History buPROPion [Wellbutrin] 75 mg PO BID 02/19/18 02/19/18 History rOPINIRole HCL [Requip] 0.25 mg PO HS 02/19/18 02/19/18 History Allergies Allergy/AdvReac Type Severity Reaction Status Date / Time diazepam [From Valium] AdvReac DROWSINESS Verified 02/19/18 12:35 Physical Exam Vitals: Vital Signs Temp Pulse Pulse Pulse Pulse Resp BP 02/19/18 16:54 64 54 L 02/19/18 15:32 97.5 F L 56 L 16 123/94 02/19/18 12:59 57 L 62 47 L 02/19/18 11:55 97.1 F L 56 L 18 94/60 BP BP BP Pulse Ox 02/19/18 16:54 114/62 126/75 02/19/18 15:32 95 01/06/19 12:59 119/57 63/40 101/74 02/19/18 11:55 95 Intake and Output 02/19/18 02/19/18 02/19/18 06:59 14:59 22:59 Other: Weight 58.967 kg - Constitutional General appearance: mild distress, thin - EENT Eyes: anicteric sclerae, EOMI, PERRLA, no ptosis, no scleral icterus, normal appearance ENT: hard of hearing, NA/AT, pharyngeal erythema, thrush Ears: bilateral: normal - Neck Neck: no lymphadenopathy, normal ROM, no rigidity Carotids: bilateral: upstroke normal - Respiratory Respiratory: bilateral: diminished, rales, wheezing, prolonged expiration - Cardiovascular Rhythm: regular Heart sounds: normal: S1, S2 Abnormal Heart Sounds: systolic murmur - Gastrointestinal General gastrointestinal: normal bowel sounds, soft, no tenderness, no umbilical hernia, no ventral hernia - Integumentary Integumentary: normal - Neurologic Neurologic: CNII-XII intact - Musculoskeletal Musculoskeletal: generalized weakness, strength equal bilaterally - Psychiatric Psychiatric: A&O x's 3, appropriate affect, intact judgment & insight Results CBC & Chem 7: 02/19/18 12:25 02/19/18 12:25 Labs: Abnormal Lab Results - Last 24 Hours (Table) 02/19/18 02/19/18 02/19/18 Range/Units 12:25 12:25 12:25 RBC 3.76 L (3.80-5.40) m/uL RDW 16.3 H (11.5-15.5) % Lymphocytes # 0.5 L (1.0-4.8) k/uL Eosinophils # 1.1 H (0-0.7) k/uL PT 13.7 H (9.0-12.0) sec INR 1.3 H (<1.2) Sodium 135 L (137-145) mmol/L BUN 22 H (7-17) mg/dL Creatinine 1.40 H (0.52-1.04) mg/dL Glucose 126 H (74-99) mg/dL Calcium 8.3 L (8.4-10.2) mg/dL Magnesium 1.5 L (1.6-2.3) mg/dL AST 116 H (14-36) U/L ALT 67 H (9-52) U/L Alkaline Phosphatase 220 H (38-126) U/L Total Protein 5.5 L (6.3-8.2) g/dL Albumin 2.9 L (3.5-5.0) g/dL Urine Appearance (Clear) Ur Leukocyte Esterase (Negative) Ur Squamous Epith Cells (0-4) /hpf Urine Bacteria (None) /hpf Hyaline Casts (0-2) /lpf Urine Mucus (None) /hpf 02/19/18 Range/Units 14:00 RBC (3.80-5.40) m/uL RDW (11.5-15.5) % Lymphocytes # (1.0-4.8) k/uL Eosinophils # (0-0.7) k/uL PT (9.0-12.0) sec INR (<1.2) Sodium (137-145) mmol/L BUN (7-17) mg/dL Creatinine (0.52-1.04) mg/dL Glucose (74-99) mg/dL Calcium (8.4-10.2) mg/dL Magnesium (1.6-2.3) mg/dL AST (14-36) U/L ALT (9-52) U/L Alkaline Phosphatase (38-126) U/L Total Protein (6.3-8.2) g/dL Albumin (3.5-5.0) g/dL Urine Appearance Cloudy H (Clear) Ur Leukocyte Esterase Moderate H (Negative) Ur Squamous Epith Cells 17 H (0-4) /hpf Urine Bacteria Many H (None) /hpf Hyaline Casts 16 H (0-2) /lpf Urine Mucus Rare H (None) /hpf Thrombosis Risk Factor Assmnt - DVT/VTE Prophylaxis DVT/VTE Prophylaxis: Pharmacologic Prophylaxis ordered, Mechanical Prophylaxis ordered Assessment and Plan Assessment: Assessment and Plan: 1. Orthostatic hypotension . discontinue lasix and potassium supplement and will start NS at 75 ML/h , we will monitor her rythm overnight and obtain cardiology consult. 2. Acute kidney injury due to acute tubular necrosis. we will decrease losartan to 50 mg orally daily and will continue with IVF for the next 24 h. 3. possible left lower lobe pneumonia. will start Zosyn 3.375 gr IVPB q 6 h, Neb Rx and O2, Duoneb QID and will obtain Pulmonary consult from . 4. Thrush. we will start Nystatin swish and swallow 5 ml po qid. 5. Recent UTI . resolved. 6. Elevated LFTs . will discontinue Lipitor , and Amiodarone and will check US of the Liver. 7. CAD post CABGx3 . we will continue with ASA 81 mg orally daily, Lopressor 25 mg orally bid, held Lipitor due to elevated LFTS. 8. Hyperlipidemia. will hold off Lipitor. 9. Hypertension and hypertensive cardiovascular disease. will continue with Metoprolol 25 mg orally bid and will decrease Losartan to 50 mg orally daily. 10. COPD with FEV1 70% of predicted. we will continue with Duoneb Neb Rx and O2. 11. PAD. stable. 12. Debility with recurrent falls. we will consult PT/OT and possible ECF placement. 13. DVT prophylaxis. we will continue with Heparin 5000 units sc Q 12 h. 14. GI prophylaxis. we will continue with Pepcid 20 mg orally daily. 15. admit to inpatient. estimated length of stay 2 midnights. 16. Patient is full code.
[2018-02-19] MEDS: DOCUSATE 100 MG CAP PO SCH (22:12)
[2018-02-19] MEDS: IPRATROPIUM-ALBUTEROL 3 ML NEB INHALATION SCH (22:19)
[2018-02-20] MEDS: PIPERACILLIN-TAZOBACTAM 3.375 GM in SODIUM CHLORIDE 0.9% 100 ML IVPB SCH ×3 (00:21→18:12)
[2018-02-20] MEDS: HEPARIN SODIUM,PORCINE 5,000 UNIT/ML 1 ML VIAL SQ SCH ×3 (00:21→18:14)
[2018-02-20 07:11] LABS: Albumin 2.4 g/dL (3.5-5.0); Calcium 7.6 mg/dL (8.4-10.2); Magnesium 2.1 mg/dL (1.6-2.3); Potassium 3.8 mmol/L (3.5-5.1); Total Bilirubin 0.6 mg/dL (0.2-1.3); Total Protein 4.8 g/dL (6.3-8.2)
[2018-02-20 07:14] LABS: Anisocytosis Slight; HCT 31.6 % (34.0-46.0); HGB 9.9 gm/dL (11.4-16.0); Hypochromasia Slight; MCH 30.4 pg (25.0-35.0); MCHC 31.2 g/dL (31.0-37.0); MCV 97.4 fL (80.0-100.0); Macrocytosis Slight; Mean Platelet Volume 6.4; Platelet Count 255 k/uL (150-450); RBC 3.24 m/uL (3.80-5.40); RDW 16.5 % (11.5-15.5); WBC 7.5 k/uL (3.8-10.6)
[2018-02-20] MEDS: IPRATROPIUM-ALBUTEROL 3 ML NEB INHALATION SCH ×5 (07:57→19:42)
[2018-02-20] MEDS ORDERED: ATORVASTATIN 40 MG TAB PO SCH (09:00)
[2018-02-20] MEDS ORDERED: LOSARTAN 50 MG TAB PO SCH (09:00)
[2018-02-20] MEDS: METOPROLOL TARTRATE 25 MG TAB PO SCH ×3 (09:05→22:02)
[2018-02-20] MEDS: buPROPion 75 MG TAB PO SCH ×2 (09:06→22:33)
[2018-02-20] MEDS: DOCUSATE 100 MG CAP PO SCH ×2 (09:07→22:33)
[2018-02-20] MEDS: FAMOTIDINE 20 MG TAB PO SCH (09:07)
[2018-02-20] MEDS: LOSARTAN 50 MG TAB PO SCH (09:08)
[2018-02-20] MEDS: ASPIRIN 81 MG PO SCH (09:09)
[2018-02-20] MEDS: NYSTATIN 100,000 UNIT/ML SUSP 500,000 UNIT/5 ML CUP PO SCH ×3 (09:13→19:13)
[2018-02-20 10:01] LABS: Myelocytes # (M) 0.08 k/uL (0); Myelocytes % 1 %; Nucleated Red Blood Cells 0 /100 WBC (0-0)
[2018-02-20 10:03] LABS: Eosinophils # (M) 1.35 k/uL (0-0.7); Lymphocytes # (M) 0.75 k/uL (1.0-4.8); Monocytes # (M) 0.68 k/uL (0-1.0); Neutrophils % (M) 64 %; Total Cells Counted 200
[2018-02-20 10:04] LABS: Anisocytosis (M) Present; Crenated RBC Present; Poikilocytosis (M) Present
--- NOTE | 2018-02-20 11:18 | US ---
EXAMINATION TYPE: US chest DATE OF EXAM: 02/20/2018 COMPARISON: Previous ultrasound chest dated 01/06/2018 and chest x-ray 02/19/2018 CLINICAL HISTORY: Markings for thoracentesis by pulmonary staff. TECHNIQUE: Targeted ultrasound of the posterior lower left hemithorax EXAM MEASUREMENTS: Left Pleural Effusion pocket size: 7.9 cm Left skin surface to fluid distance: 1.8 cm Left side marked for possible thoracentesis outside the dept. Pulmonologists are able to review the images in the patient?s EMR. IMPRESSIONS: Left pleural effusion.
--- NOTE | 2018-02-20 11:46 | US ---
EXAMINATION TYPE: US liver DATE OF EXAM: 02/20/2018 COMPARISON: NONE CLINICAL HISTORY: Elevated LFTs.. EXAM MEASUREMENTS: Liver Length: 10.1 cm Gallbladder Wall: 0.3 cm CBD: 0.65 cm Right Kidney: 9.8 x 3.8 x 4.4 cm Pancreas: Tail obscured by overlying bowel gas. Duct visualized measuring 0.26 cm Liver: Homogeneous Gallbladder: Sludge visualized. Appears prominent Evidence for sonographic Perez's sign: No CBD: wnl Right Kidney: No hydronephrosis or masses seen IMPRESSION: No worrisome focal intrahepatic mass or intrahepatic ductal dilatation is identified.
--- NOTE | 2018-02-20 12:51 | P.CRDCN ---
History of Present Illness History of present illness: This is a pleasant 77-year-old female past medical history significant for coronary artery disease status post three-vessel bypass grafting , hypertension, dyslipidemia, peripheral vascular disease with disease in the bilateral SFAs, COPD, former nicotine dependence and postoperative paroxysmal atrial fibrillation. She follows with Dr. Miranda in the office. We have been asked to see her in consultation secondary to orthostatic hypotension. She is seen and examined resting comfortably on the cart in the emergency department with her daughter at the bedside. Her daughter lives in [place] but comes to visit every weekend. On this most recent visit she noticed her mother to be extremely weak, increasingly fatigued and not eating or drinking. The patient denies symptoms of chest discomfort, shortness of breath or palpitations. She does complain of dizziness when she lays flat. She states she has a history of vertigo in the past used to take Antivert daily prior to bypass surgery but has not taken it since that time. She states every time she lays flat in bed she feels like the room is spinning and she becomes mildly nauseated. On arrival to the emergency department blood pressure was 94/60 with a heart rate of 56. She was orthostatic positive. She has received 2-1/2 L of normal saline. Repeat blood pressure this morning 118/72 with a heart rate of 54. Laboratory data reviewed and reveals elevated liver function. Amiodarone, atorvastatin, Lasix and potassium supplementation have been held. She was also seen 02/06 in ED and also had orthostatic hypotension at that time as well. She was sent home on PO Macrobid for UTI. EKG reveals sinus mechanism with significant amount of artifact. Chest x-ray reveals evidence of COPD, left basilar airspace disease that appears to present and a left sided effusion. Laboratory data reviewed, WBC 7.5, hemoglobin 9.9, platelets 255, INR 1.3, sodium 136, potassium 3.8, creatinine 1.14 down from 1.4 at admission, magnesium 2.1 up from 1.5 on admission, AST 122, ALT 79, alkaline phosphatase 242 and cardiac enzymes negative 1. Current cardiac medications include atorvastatin 40 mg daily, Lasix 20 mg daily , losartan 100 mg daily, Lopressor 25 mg twice a day, amiodarone 200 mg twice a day and potassium supplementation. Most recent echocardiogram obtained December 2017 reveals preserved left ventricular systolic function with ejection fraction 60-65%, mild TR is noted. Cardiac catheterization performed in November 2017 reveals extremely calcified right and left coronary system severe triple vessel coronary artery disease, severe disease involving the proximal RCA, severe disease involving the ostial circumflex and severe disease involving the ostial LAD. Bypass surgery with LOPES to LAD, SVG from aorta to the first OM, SVG from aorta to the posterior descending coronary artery. At the time of my exam: CONSTITUTIONAL: Denies fever. Denies chills. Generalized weakness and fatigue. EYES: Denies blurred vision. Denies vision changes. Denies eye pain. EARS, NOSE, MOUTH & THROAT: Denies headache. Denies sore throat. Denies ear pain. CARDIOVASCULAR: Denies chest pain. Denies shortness of breath. Denies orthopnea. Denies PND. Denies palpitations. RESPIRATORY: Denies cough. GASTROINTESTINAL: Denies abdominal pain. Denies diarrhea. Denies constipation. Denies nausea. Denies vomiting. MUSCULOSKELETAL: Denies myalgias. INTEGUMENTARY: Denies pruitis. Denies rash. NEUROLOGIC: Denies numbness. Denies tingling. Complains of generalized weakness and fatigue. Complains of room spinning when she lays flat. PSYCHIATRIC: Denies anxiety. Denies depression. ENDOCRINE: Denies fatigue. Denies weight change. Denies polydipsia. Denies polyurina. GENITOURINARY: Denies burning, hematuria or urgency with micturation. HEMATOLOGIC: Denies history of anemia. Denies bleeding. Blood pressure 118/72 heart rate 54 afebrile maintaining oxygen saturation on room air GENERAL: This is a 77-year-old female in no apparent distress at the time of my examination. HEENT: Head is atraumatic, normocephalic. Pupils are equal, round. Sclerae anicteric. Conjunctivae are clear. Mucous membranes of the mouth are moist. Neck is supple. There is no jugular venous distention. No carotid bruit is heard. LUNGS: Clear to auscultation no wheezes, rales or rhonchi. No chest wall tenderness is noted on palpation or with deep breathing. HEART: Regular rate and rhythm without murmurs, rubs or gallops. S1 and S2 heard. ABDOMEN: Soft, nontender. Bowel sounds are heard. No organomegaly noted. EXTREMITIES: No evidence of peripheral edema and no calf tenderness noted. VASCULAR: Radial and dorsalis pedis pulses palpated, no evidence of clubbing. NEUROLOGIC: Patient is awake, alert and oriented x3. ASSESSMENT Orthostatic hypotension Acute kidney injury Dehydration Poor oral intake History of coronary artery disease s/p bypass surgery Paroxysmal atrial fibrillation s/p bypass surgery, not on termite treater anticoagulation Elevated liver enzymes Hypertension Dyslipidemia COPD Peripheral vascular disease PLAN Agree with discontinuation of amiodarone and atorvastatin. Continue to hold lasix and potassium supplementation. IV hydration and checking orthostatic vital signs qshift. Ongoing medical management. Thank you kindly for this consultation. Nurse Practitioner note has been reviewed, I agree with a documented findings and plan of care. Patient was seen and examined. Past Medical History Past Medical History: Coronary Artery Disease (CAD), COPD, GERD/Reflux, Hyperlipidemia, Hypertension, Osteoarthritis (OA), Pulmonary Embolus (PE), Thyroid Disorder, Vascular Disorder Additional Past Medical History / Comment(s): Multivessel coronary artery disease with triple-vessel involvement, COPD, chronic back pain, chronic degenerative arthritis with hip pain, remote history of pulmonary embolism, hypothyroidism. History of Any Multi-Drug Resistant Organisms: ESBL Date of last positivie culture/infection: 02/06/18 MDRO Source:: esbl urine Past Surgical History: Appendectomy, Section, Hysterectomy Additional Past Surgical History / Comment(s): Section X2, bilateral cataract removal with lens implants. Past Anesthesia/Blood Transfusion Reactions: No Reported Reaction Past Psychological History: No Psychological Hx Reported Smoking Status: Unknown if ever smoked Past Alcohol Use History: None Reported Past Drug Use History: None Reported - Past Family History Brother(s) Family Medical History: Cancer Additional Family Medical History / Comment(s): Patient does not have any brothers. Daughter(s) Additional Family Medical History / Comment(s): Patient has 3 daughters and 2 have from aneursym but patient does not know site. Son(s) Additional Family Medical History / Comment(s): Patient has 3 sons and one has from lung cancer. Father Additional Family Medical History / Comment(s): Father at age 79 and patient does not know cause or medical history. Mother Additional Family Medical History / Comment(s): Mother dies at age 84 from old age. Sister(s) Additional Family Medical History / Comment(s): Patient has one sister wit CAD status post 4 stents. Medications and Allergies Home Medications Medication Instructions Recorded Confirmed Type Atorvastatin [Lipitor] 40 mg PO DAILY tab 01/09/18 02/19/18 Rx Furosemide [Lasix] 20 mg PO DAILY tab 01/09/18 02/19/18 Rx Ipratropium-Albuterol Nebulize 3 ml INHALATION RT-QID ampul.neb 01/09/18 Rx [Duoneb 0.5 mg-3 mg/3 ml Soln] Losartan [Cozaar] 100 mg PO DAILY tab 01/09/18 02/19/18 Rx Metoprolol Tartrate [Lopressor] 25 mg PO BID tab 01/09/18 02/19/18 Rx Amiodarone [Cordarone] 200 mg PO BID 02/19/18 02/19/18 History Docusate [Colace] 100 mg PO BID 02/19/18 02/19/18 History HYDROcodone/APAP 10-325MG [[place] 1 tab PO Q8H PRN 02/19/18 02/19/18 History 10-325] Potassium Chloride ER [K-Dur 20] 20 meq PO DAILY 02/19/18 02/19/18 History buPROPion [Wellbutrin] 75 mg PO BID 02/19/18 02/19/18 History rOPINIRole HCL [Requip] 0.25 mg PO HS 02/19/18 02/19/18 History Allergies Allergy/AdvReac Type Severity Reaction Status Date / Time diazepam [From Valium] AdvReac DROWSINESS Verified 02/19/18 12:35 Physical Exam Vitals: Vital Signs Temp Pulse Pulse Pulse Pulse Resp BP 02/20/18 06:00 98.4 F 54 L 20 118/72 02/20/18 05:34 55 L 18 119/59 02/20/18 05:00 71 18 123/70 02/20/18 02:41 17 02/20/18 02:20 52 L 16 111/60 02/20/18 01:09 52 L 104/55 02/20/18 00:38 50 L 95/53 02/19/18 22:32 54 L 02/19/18 22:21 55 L 02/19/18 22:15 97.0 F L 88 18 116/77 02/19/18 19:09 98.2 F 61 16 128/77 02/19/18 16:54 64 54 L 02/19/18 15:32 97.5 F L 56 L 16 123/94 02/19/18 12:59 57 L 62 47 L 02/19/18 11:55 97.1 F L 56 L 18 94/60 BP BP BP Pulse Ox 02/20/18 06:00 98 02/20/18 05:34 97 02/20/18 05:00 97 02/20/18 02:41 02/20/18 02:20 95 02/20/18 01:09 02/20/18 00:38 96 02/19/18 22:32 02/19/18 22:21 02/19/18 22:15 93 L 02/19/18 19:09 98 02/19/18 16:54 114/62 126/75 02/19/18 15:32 95 02/19/18 12:59 119/57 63/40 101/74 02/19/18 11:55 95 Results 02/20/18 06:30 02/20/18 06:30 Cardiac Enzymes 02/19/18 02/19/18 02/20/18 Range/Units 12:25 12:25 06:30 AST 116 H 122 H (14-36) U/L CK-MB (CK-2) 1.3 (0.0-2.4) ng/mL Troponin I 0.014 (0.000-0.034) ng/mL Coagulation 02/19/18 Range/Units 12:25 PT 13.7 H (9.0-12.0) sec APTT 23.5 (22.0-30.0) sec CBC 02/19/18 02/20/18 Range/Units 12:25 06:30 WBC 9.2 7.5 (3.8-10.6) k/uL RBC 3.76 L 3.24 L (3.80-5.40) m/uL Hgb 11.4 9.9 L D (11.4-16.0) gm/dL Hct 35.9 31.6 L (34.0-46.0) % Plt Count 310 255 (150-450) k/uL Comprehensive Metabolic Panel 02/19/18 02/20/18 Range/Units 12:25 06:30 Sodium 135 L 136 L (137-145) mmol/L Potassium 4.6 3.8 (3.5-5.1) mmol/L Chloride 106 107 (98-107) mmol/L Carbon Dioxide 22 22 (22-30) mmol/L BUN 22 H 18 H (7-17) mg/dL Creatinine 1.40 H 1.14 H (0.52-1.04) mg/dL Glucose 126 H 90 (74-99) mg/dL Calcium 8.3 L 7.6 L (8.4-10.2) mg/dL AST 116 H 122 H (14-36) U/L ALT 67 H 79 H (9-52) U/L Alkaline Phosphatase 220 H 242 H (38-126) U/L Total Protein 5.5 L 4.8 L (6.3-8.2) g/dL Albumin 2.9 L 2.4 L (3.5-5.0) g/dL Current Medications Generic Name Dose Route Start Last Admin Trade Name Freq PRN Reason Stop Dose Admin Hydrocodone Bitart/Acetaminophen 1 each 02/19/18 17:34 [place] 10 PO Q8H PRN Pain Albuterol/Ipratropium 3 ml 02/19/18 20:00 02/20/18 07:57 Duoneb 0.5 Mg-3 Mg/3 Ml Soln INHALATION Not Given RT-QID JENNIFER Aspirin 81 mg 02/20/18 09:00 02/20/18 09:09 Aspirin PO 81 mg DAILY JENNIFER Administration Bupropion HCl 75 mg 02/19/18 21:00 02/20/18 09:06 Wellbutrin PO 75 mg BID JENNIFER Administration Docusate Sodium 100 mg 02/19/18 21:00 02/20/18 09:07 Colace PO 100 mg BID JENNIFER Administration Famotidine 20 mg 02/20/18 09:00 02/20/18 09:07 Pepcid PO 20 mg DAILY JENNIFER Administration Heparin Sodium (Porcine) 5,000 unit 02/20/18 00:00 02/20/18 09:21 Heparin SQ 5,000 unit Q8HR JENNIFER Administration Piperacillin Sod/Tazobactam 100 mls @ 25 mls/hr 02/20/18 00:00 02/20/18 09:14 Sod 3.375 gm/ Sodium Chloride IVPB 25 mls/hr Q8HR JENNIFER Administration Losartan Potassium 50 mg 02/20/18 09:00 02/20/18 09:08 Cozaar PO 50 mg DAILY JENNIFER Administration Metoprolol Tartrate 25 mg 02/19/18 21:00 02/20/18 09:13 Lopressor PO 25 mg BID JENNIFER Administration Nystatin 500,000 unit 02/19/18 22:00 02/20/18 09:13 Mycostatin Oral Susp PO 500,000 unit QID JENNIFER Administration Ropinirole HCl 0.25 mg 02/19/18 21:00 02/19/18 21:32 Requip PO 0.25 mg HS JENNIFER Administration 02/20/18 06:30 02/20/18 06:30
[2018-02-20] MEDS ORDERED: PNEUMOCOCCAL VACC-PNEUMOVAX 23 25 MCG/0.5 ML VIAL IM ONE (14:58)
--- NOTE | 2018-02-20 15:33 | P.PN ---
Subjective Progress Note Date: 02/20/18 This is a 77 year-old female one of my patient with a previous medical history significant for CAD post CABG x3 that was done recently with LOPES to LAD and SVG to OM1 and SVG to PDA that was done about a month ago, hypertension and hypertensive cardiovascular disease, hyperlipidemia, COPD, PAD , and remote history of pulmonary embolism, spondylosis of the Lumbar spine, patient was discharged from [facility] after she has had inpatient rehabilitation due medical debility post CABG and she has done well till recently when she has lost her appetite and according to her family she has not been eating or drinking much and had significant weight loss and mild short term memory loss, and had recurrent falls, on 02/06/2018 she was dizzy and was found to have orthostatic hypotension and was treated in the ER and was sent home on Macrobid 100 mg orally bid for 1 week and was given IV Fluid and was supposed to follow up with me in the office in 2 days but she never made an appointment , upon questioning her he stated that she has been very weak and he could not bring her to the office , patient has had [facility] and has been seen regularly by her nurse and eventually she was brought today to the ER for similar symptoms and she was not able to eat or drink much, had a CXR that showed left pleural effusion with consolidation that appeared worse and had low magnesium, with elevated LFTs and Orthostatic hypotension, she was give IV fluid and was started on IV ABX and held both Lipitor and Amiodarone and obtained cardiology consult and pulmonary consult, with PT evaluation,patient had some thrush in her mouth and will be started on Nystatin swish and swallow . 02/20: Patient remains in the in the emergency center waiting for a bed. Patient states that she had a hard time sleeping last night. Discussed case with cardiology and Plavix will be started. Patient's mouth is feeling better since she started on nystatin. Orthostatics are again positive today. Liver ultrasound showed no worrisome focal intrahepatic mass or intrahepatic ductal dilatation identified. Pulse ox is 96% on room air. Repeat lab work showed hemoglobin of 9.9, BUN 18 creatinine 1.14. AST 122, ALT 79, alkaline phosphatase 242. Albumin 2.4. Chest ultrasound showed a left pleural effusion pocket 7.9 cm and has been marked for thoracentesis. Cardiology and pulmonary medicine are following the patient. Review of Systems Constitutional: Reports anorexia, Reports chronic pain, Reports fatigue, Reports weakness, Reports weight loss Eyes: denies blurred vision, denies bulging eye, denies decreased vision Ears: bilateral: decreased hearing Ears, nose, mouth and throat: Reports dysphagia, Reports vertigo, Denies neck lump, Denies sore throat, Denies voice changes Cardiovascular: Reports decreased exercise tolerance, Reports lightheadedness, Reports shortness of breath, Denies chest pain, Denies syncope Respiratory: Reports home oxygen, Reports wheezing, Denies congestion, Denies cough, Denies cough with sputum, Denies sleep apnea, Denies snoring Gastrointestinal: Reports early satiety, Reports loss of appetite, Denies bloating, Denies BRBPR, Denies dyspepsia, Denies heartburn, Denies melena, Denies vomiting Genitourinary: Denies dysuria, Denies hematuria Menstruation: Reports postmenopausal Musculoskeletal: Reports frequent falls, Reports gait dysfunction Musculoskeletal: absent: ankle pain, ankle stiffness, ankle swelling, elbow pain , elbow stiffness, elbow swelling, foot pain, foot stiffness, foot swelling, hand pain, hand stiffness, hand swelling, hip pain, hip stiffness, hip swelling , knee pain, knee stiffness, knee swelling, shoulder pain, shoulder stiffness, shoulder swelling, wrist pain, wrist stiffness, wrist swelling Integumentary: Denies pruritus, Denies rash Neurological: Reports gait dysfunction, Reports memory loss, Reports weakness Psychiatric: Reports anxiety, Reports change in appetite, Reports memory loss Endocrine: Denies fatigue Objective - Vital Signs Vital signs: Vital Signs Temp 98.4 F 02/20/18 06:00 Pulse 54 L 02/20/18 06:00 Resp 20 02/20/18 06:00 BP 118/72 02/20/18 06:00 Pulse Ox 98 02/20/18 06:00 Intake & Output 02/19/18 02/20/18 02/20/18 18:59 06:59 18:59 Weight 58.967 kg - Exam General appearance: no distress, thin - EENT Eyes: anicteric sclerae, EOMI, PERRLA, no ptosis, no scleral icterus, normal appearance ENT: hard of hearing, NA/AT, pharyngeal erythema, thrush Ears: bilateral: normal - Neck Neck: no lymphadenopathy, normal ROM, no rigidity Carotids: bilateral: upstroke normal - Respiratory Respiratory: bilateral: diminished, rales, wheezing, prolonged expiration - Cardiovascular Rhythm: regular Heart sounds: normal: S1, S2 Abnormal Heart Sounds: systolic murmur - Gastrointestinal General gastrointestinal: normal bowel sounds, soft, no tenderness, no umbilical hernia, no ventral hernia - Integumentary Integumentary: normal - Neurologic Neurologic: CNII-XII intact - Musculoskeletal Musculoskeletal: generalized weakness, strength equal bilaterally - Psychiatric Psychiatric: A&O x's 3, appropriate affect, intact judgment & insight - Labs CBC & Chem 7: 02/20/18 06:30 02/20/18 06:30 Labs: Abnormal Lab Results - Last 24 Hours (Table) 02/19/18 02/19/18 02/19/18 Range/Units 12:25 12:25 12:25 RBC 3.76 L (3.80-5.40) m/uL Hgb (11.4-16.0) gm/dL Hct (34.0-46.0) % RDW 16.3 H (11.5-15.5) % Lymphocytes # 0.5 L (1.0-4.8) k/uL Eosinophils # 1.1 H (0-0.7) k/uL PT 13.7 H (9.0-12.0) sec INR 1.3 H (<1.2) Sodium 135 L (137-145) mmol/L BUN 22 H (7-17) mg/dL Creatinine 1.40 H (0.52-1.04) mg/dL Glucose 126 H (74-99) mg/dL Calcium 8.3 L (8.4-10.2) mg/dL Magnesium 1.5 L (1.6-2.3) mg/dL AST 116 H (14-36) U/L ALT 67 H (9-52) U/L Alkaline Phosphatase 220 H (38-126) U/L Total Protein 5.5 L (6.3-8.2) g/dL Albumin 2.9 L (3.5-5.0) g/dL Urine Appearance (Clear) Ur Leukocyte Esterase (Negative) Ur Squamous Epith Cells (0-4) /hpf Urine Bacteria (None) /hpf Hyaline Casts (0-2) /lpf Urine Mucus (None) /hpf 02/19/18 02/20/18 02/20/18 Range/Units 14:00 06:30 06:30 RBC 3.24 L (3.80-5.40) m/uL Hgb 9.9 L D (11.4-16.0) gm/dL Hct 31.6 L (34.0-46.0) % RDW 16.5 H (11.5-15.5) % Lymphocytes # (1.0-4.8) k/uL Eosinophils # (0-0.7) k/uL PT (9.0-12.0) sec INR (<1.2) Sodium 136 L (137-145) mmol/L BUN 18 H (7-17) mg/dL Creatinine 1.14 H (0.52-1.04) mg/dL Glucose (74-99) mg/dL Calcium 7.6 L (8.4-10.2) mg/dL Magnesium (1.6-2.3) mg/dL AST 122 H (14-36) U/L ALT 79 H (9-52) U/L Alkaline Phosphatase 242 H (38-126) U/L Total Protein 4.8 L (6.3-8.2) g/dL Albumin 2.4 L (3.5-5.0) g/dL Urine Appearance Cloudy H (Clear) Ur Leukocyte Esterase Moderate H (Negative) Ur Squamous Epith Cells 17 H (0-4) /hpf Urine Bacteria Many H (None) /hpf Hyaline Casts 16 H (0-2) /lpf Urine Mucus Rare H (None) /hpf Assessment and Plan Plan: 1. Orthostatic hypotension. Discontinue lasix and potassium supplement and will start NS at 75 ML/h , we will monitor her rythm overnight and obtain cardiology consult. 2. Acute kidney injury due to acute tubular necrosis. we will decrease losartan to 50 mg orally daily and will continue with IVF for the next 24 h. 3. Possible left lower lobe pneumonia. will start Zosyn 3.375 gr IVPB q 6 h, Neb Rx and O2, Duoneb QID and will obtain Pulmonary consult from . 4. Thrush. we will start Nystatin swish and swallow 5 ml po qid. 5. Recent UTI . resolved. 6. Elevated LFTs. will discontinue Lipitor and Amiodarone, US of the Liver normal. Acute hepatitis panel ordered. Continue to monitor. 7. CAD post CABGx3 . we will continue with ASA 81 mg orally daily, Lopressor 25 mg orally bid, held Lipitor due to elevated LFTS. Plavix started. 8. Hyperlipidemia. will hold off Lipitor. 9. Hypertension and hypertensive cardiovascular disease. will continue with Metoprolol 25 mg orally bid and will decrease Losartan to 50 mg orally daily. 10. COPD with FEV1 70% of predicted. we will continue with Duoneb Neb Rx and O2. 11. PAD. stable. 12. Debility with recurrent falls. we will consult PT/OT and possible ECF placement. 13. DVT prophylaxis. we will continue with Heparin 5000 units sc Q 12 h. 14. GI prophylaxis. we will continue with Pepcid 20 mg orally daily. 15. Paroxysmal atrial fibrillation. Plavix started. Discharge plan: To be determined. Most likely subacute rehab. Social work consult. Impression and plan of care have been directed as dictated by the signing physician. Yecenia Holcomb nurse practitioner acting as scribe for signing physician.
[2018-02-20] MEDS: CLOPIDOGREL 75 MG TAB PO SCH (15:57)
--- NOTE | 2018-02-20 17:07 | CONS ---
CONSULTATION This patient is a 77-year-old female who presented to the emergency department because of weakness. She was apparently developing weakness over the last couple of days. The patient states that she just feels very fatigued. Apparently not eating, poor appetite, losing weight; just really not thriving particularly well. There is no specific complaint. In other words, no chest pain or chest discomfort. No nausea, vomiting or diarrhea. Not much in the way of any shortness of breath, either. I was consulted because of a left-sided pleural effusion which is actually worse that it was prior. We did have them do an ultrasound of the left chest. The pocket is now 7.9 cm in size. The patient will probably benefit from a thoracentesis. Previously it was only 4.9. No fever or chills. No nausea, vomiting or diarrhea. No chest pain or chest discomfort. Not coughing or producing any phlegm. Yecenia left the hospital and went to a detention for a couple of weeks and after that was discharged home. She had been home for a couple of days before coming back in on this admission. HOME MEDICATIONS: Reviewed. She is on: 1. Cordarone. 2. Colace. 3. [place]. 4. Potassium. 5. Requip. 6. Lipitor. 7. Lasix. 8. Updrafts. 9. Cozaar. 10.Metoprolol. 11.Wellbutrin. ALLERGIES: VALIUM. MEDICAL HISTORY: Medical history includes: 1. COPD. 2. Hypertension. 3. Pulmonary embolism. 4. Hyperlipidemia. 5. CAD with recent bypass grafting. 6. Chronic back pain. 7. Hip pain. 8. Hypothyroidism. 9. Previous history of infection with axzihxgl-fbggxkjf-abqc-lactamase-producing organisms. SURGICAL HISTORY: Includes: 1. Appendectomy. 2. . 3. Hysterectomy. 4. Bilateral cataract removal. 5. Recent 3-vessel bypass grafting. SOCIAL HISTORY: Negative for tobacco use. No alcohol use. No illicit drug use. FAMILY HISTORY: Positive for lung cancer, CAD, bypass grafting and thoracic aneurysm. REVIEW OF SYSTEMS: CONSTITUTIONAL: Weakness, decreased appetite, weight loss. Failure to thrive. NEUROLOGIC: Negative. HEENT: Negative. CARDIOVASCULAR: Negative. PULMONARY: Negative. GI/: Negative. RHEUMATOLOGIC/IMMUNOLOGIC: Negative. ENDOCRINOLOGIC: Negative. DERMATOLOGIC: Negative. PHYSICAL EXAMINATION: Current vital signs are reviewed. Temperature is 98.4, heart rate 60, respiratory rate 20, blood pressure 117/71, mean 86, and saturation is 100% on a couple of liters. Appears in no acute distress. HEENT examination is grossly unremarkable. Mucous membranes are moist. No oral lesions. Nasal oxygen in place. NECK: Supple. Full range of motion. No adenopathy or thyromegaly. Neck veins are flat. Cardiovascular examination reveals regular rhythm and rate. S1, S2 normal. No S3, S4 or murmur. LUNGS: Diminished breath sounds at the left base. There is dullness at the left base. No crackles. The right lung is essentially clear. ABDOMEN: Soft. Bowel sounds are heard. Extremities are intact. No cyanosis, clubbing or edema. Skin without rash. Neurologic examination is brief but nonfocal. LAB DATA: Reviewed. White count 7.5, hemoglobin 9.9, hematocrit 31.6, platelet count 255,000. PT/INR were 13.7 and 1.3, respectively. PTT is 23.5. Sodium 136, potassium 3.8, chloride 107, CO2 of 22. BUN and creatinine were 18 and 1.14. The rest of the labs look pretty good. Urine is yellow and cloudy. There is moderate positive leukocyte esterase, 2 RBCs, 5 WBCs, many bacteria. Microbiologic studies are pending or negative. The chest ultrasound shows a 7.9 cm fluid pocket on the left side. This is larger than it was prior. ASSESSMENT: 1. Left-sided pleural effusion. 2. Recent triple-vessel bypass grafting. 3. Weakness with decreased appetite, weight loss and failure to thrive of unclear etiology. 4. History of hypothyroidism. 5. History of hypertension. 6. History of pulmonary embolism. 7. Chronic obstructive pulmonary disease. 8. Chronic back pain. 9. Degenerative joint disease. 10.Previous history of rodwntmd-jzduqgco-ifcz-lactamase-producing organisms. PLAN: The patient will be scheduled for thoracentesis. We might be able to do that tomorrow. Additional recommendations and suggestions are forthcoming. Prognosis is guarded. Will continue to follow closely. The fluid will be sent for analysis. The urine is sent for culture. No additional recommendations are made. Prognosis is guarded. MMODL / IJN: [id number] /
[2018-02-21] MEDS: PIPERACILLIN-TAZOBACTAM 3.375 GM in SODIUM CHLORIDE 0.9% 100 ML IVPB SCH ×3 (00:55→17:16)
[2018-02-21] MEDS: NYSTATIN 100,000 UNIT/ML SUSP 500,000 UNIT/5 ML CUP PO SCH ×5 (00:55→21:42)
[2018-02-21] MEDS: HEPARIN SODIUM,PORCINE 5,000 UNIT/ML 1 ML VIAL SQ SCH ×3 (04:03→17:16)
[2018-02-21 05:07] LABS: Hepatitis A Antibody IgM Non-Reactive (Non-Reactive); Hepatitis B Core IgM Non-Reactive (Non-Reactive)
[2018-02-21] MEDS: IPRATROPIUM-ALBUTEROL 3 ML NEB INHALATION SCH ×4 (07:28→20:12)
[2018-02-21] MEDS ORDERED: LIDOCAINE 1% INJ 10MG/ML (20 ML MDV) SQ ONE (08:40)
[2018-02-21 09:41] LABS: Anisocytosis Slight; HCT 33.1 % (34.0-46.0); HGB 10.5 gm/dL (11.4-16.0); Hypochromasia Moderate; MCHC 31.8 g/dL (31.0-37.0); MCV 97.4 fL (80.0-100.0); Macrocytosis Slight; Mean Platelet Volume 6.6; Platelet Count 281 k/uL (150-450); RDW 16.5 % (11.5-15.5); WBC 8.9 k/uL (3.8-10.6)
[2018-02-21 09:52] LABS: ALT 89 U/L (9-52); AST 112 U/L (14-36); Albumin 2.6 g/dL (3.5-5.0); Alkaline Phosphatase 270 U/L (38-126); Anion Gap 5 mmol/L; Blood Urea Nitrogen 12 mg/dL (7-17); Calcium 7.8 mg/dL (8.4-10.2); Carbon Dioxide 24 mmol/L (22-30); Chloride 109 mmol/L (98-107); Glucose 85 mg/dL (74-99); Potassium 4.2 mmol/L (3.5-5.1); Sodium 138 mmol/L (137-145); Total Bilirubin 0.5 mg/dL (0.2-1.3); Total Protein 4.9 g/dL (6.3-8.2)
--- NOTE | 2018-02-21 11:26 | PCN ---
PROCEDURE NOTE PROCEDURE: Left thoracentesis. Indication Pleural effusion. A time-out was completed verifying correct patient, procedure, site, positioning , and implant (s) or special equipment if applicable. Ultrasound guidance was used and appropriate fluid pocket was identified and marked. Patient was positioned, prepped and draped in usual sterile fashion. Lidocaine was used to anesthetize the area. A Thoracentesis catheter was introduced into the pleural space and fluid was removed. Blood loss was none. A chest x-ray was ordered to evaluate for pneumothorax. Total Fluid Removed 1100 mL Color of Fluid @@ Fluid was sent for appropriate laboratory tests. Patient tolerated the procedure well and there were no complications. you can use the template the left posterior chest was marked by ultrasound. 1100 cc of fluid was removed. It was sent to the laboratory for analysis. There was no immediate complication. A chest x-ray was ordered to check to rule out pneumothorax. The patient tolerated the procedure well. No major complications or issues. MMODL / IJN: [id number] /
[2018-02-21 12:00] VITALS: BMI 23.8
[2018-02-21] MEDS: FAMOTIDINE 20 MG TAB PO SCH (12:25)
[2018-02-21] MEDS: METOPROLOL TARTRATE 25 MG TAB PO SCH ×2 (12:25→21:42)
[2018-02-21] MEDS: DOCUSATE 100 MG CAP PO SCH ×2 (12:26→21:42)
[2018-02-21] MEDS: ASPIRIN 81 MG PO SCH (12:26)
[2018-02-21] MEDS: LOSARTAN 50 MG TAB PO SCH (12:26)
[2018-02-21] MEDS: CLOPIDOGREL 75 MG TAB PO SCH (12:26)
[2018-02-21] MEDS: buPROPion 75 MG TAB PO SCH ×2 (12:28→22:37)
--- NOTE | 2018-02-21 12:46 | P.PN ---
Subjective This is a pleasant 77-year-old female past medical history significant for coronary artery disease status post three-vessel bypass grafting , hypertension, dyslipidemia, peripheral vascular disease with disease in the bilateral SFAs, COPD, former nicotine dependence and postoperative paroxysmal atrial fibrillation. She follows with Dr. Miranda in the office. She presented to the hospital with increased weakness, fatigue, poor appetite and shortness of breath. She underwent thoracentesis this morning per Dr. Garcia with total of 1100cc of fluid removed. She looks much better on clinical exam. She states her shortness of breath has resolved and she feels like she has more energy already today. She denies chest pain, dizziness or palpitations. Amiodarone and atorvastatin discontinued yesterday. Laboratory data reviewed, hemoglobin 10.5, platelets 281, sodium 138, potassium 4.2, creatinine 0.73, AST 112, ALT 89 and alkaline phosphatase 270. Blood pressure 136/80 161 afebrile maintaining oxygen saturation on room air. Telemetry tracings indicate she is maintaining sinus mechanism. Ultrasound of the liver is negative for focal intrahepatic mass intrahepatic ductal dilitation. GENERAL: This is a 77-year-old female in no apparent distress at the time of my examination. HEENT: Head is atraumatic, normocephalic. Pupils are equal, round. Sclerae anicteric. Conjunctivae are clear. Mucous membranes of the mouth are moist. Neck is supple. There is no jugular venous distention. No carotid bruit is heard. LUNGS: Clear to auscultation no wheezes, rales or rhonchi. No chest wall tenderness is noted on palpation or with deep breathing. HEART: Regular rate and rhythm without murmurs, rubs or gallops. S1 and S2 heard. EXTREMITIES: No evidence of peripheral edema and no calf tenderness noted. ASSESSMENT Orthostatic hypotension Acute kidney injury Dehydration Poor oral intake History of coronary artery disease s/p bypass surgery Paroxysmal atrial fibrillation s/p bypass surgery, not on terminal superintendent anticoagulation Elevated liver enzymes Hypertension Dyslipidemia COPD Peripheral vascular disease PLAN Agree with discontinuation of amiodarone and atorvastatin. Continue to hold lasix and potassium supplementation. Follow liver enzymes daily. Ongoing medical management. Nurse Practitioner note has been reviewed, I agree with a documented findings and plan of care. Patient was seen and examined. Objective - Vital Signs Vital signs: Vital Signs Temp 97.6 F 01/08/19 11:44 Pulse 61 02/21/18 11:44 Resp 16 02/21/18 11:44 BP 136/81 02/21/18 11:44 Pulse Ox 100 02/21/18 11:44 Intake & Output 02/20/18 02/21/18 02/21/18 18:59 06:59 18:59 Intake Total 590 Balance 590 Weight 58.967 kg Intake: Oral 590 Other: Voiding Method Toilet Toilet Toilet Diaper Diaper # Voids 2 - Labs CBC & Chem 7: 02/21/18 08:56 02/21/18 08:56 Labs: Abnormal Lab Results - Last 24 Hours (Table) 02/21/18 02/21/18 Range/Units 08:56 08:56 RBC 3.40 L (3.80-5.40) m/uL Hgb 10.5 L (11.4-16.0) gm/dL Hct 33.1 L (34.0-46.0) % RDW 16.5 H (11.5-15.5) % Chloride 109 H (98-107) mmol/L Calcium 7.8 L (8.4-10.2) mg/dL AST 112 H (14-36) U/L ALT 89 H (9-52) U/L Alkaline Phosphatase 270 H (38-126) U/L Total Protein 4.9 L (6.3-8.2) g/dL Albumin 2.6 L (3.5-5.0) g/dL
--- NOTE | 2018-02-21 12:56 | P.PN ---
Subjective Progress Note Date: 02/21/18 This is a 77 year-old female one of my patient with a previous medical history significant for CAD post CABG x3 that was done recently with LOPES to LAD and SVG to OM1 and SVG to PDA that was done about a month ago, hypertension and hypertensive cardiovascular disease, hyperlipidemia, COPD, PAD , and remote history of pulmonary embolism, spondylosis of the Lumbar spine, patient was discharged from [facility] after she has had inpatient rehabilitation due medical debility post CABG and she has done well till recently when she has lost her appetite and according to her family she has not been eating or drinking much and had significant weight loss and mild short term memory loss, and had recurrent falls, on 02/06/2018 she was dizzy and was found to have orthostatic hypotension and was treated in the ER and was sent home on Macrobid 100 mg orally bid for 1 week and was given IV Fluid and was supposed to follow up with me in the office in 2 days but she never made an appointment , upon questioning her he stated that she has been very weak and he could not bring her to the office , patient has had [facility] and has been seen regularly by her nurse and eventually she was brought today to the ER for similar symptoms and she was not able to eat or drink much, had a CXR that showed left pleural effusion with consolidation that appeared worse and had low magnesium, with elevated LFTs and Orthostatic hypotension, she was give IV fluid and was started on IV ABX and held both Lipitor and Amiodarone and obtained cardiology consult and pulmonary consult, with PT evaluation,patient had some thrush in her mouth and will be started on Nystatin swish and swallow . 02/20: Patient remains in the in the emergency center waiting for a bed. Patient states that she had a hard time sleeping last night. Discussed case with cardiology and Plavix will be started. Patient's mouth is feeling better since she started on nystatin. Orthostatics are again positive today. Liver ultrasound showed no worrisome focal intrahepatic mass or intrahepatic ductal dilatation identified. Pulse ox is 96% on room air. Repeat lab work showed hemoglobin of 9.9, BUN 18 creatinine 1.14. AST 122, ALT 79, alkaline phosphatase 242. Albumin 2.4. Chest ultrasound showed a left pleural effusion pocket 7.9 cm and has been marked for thoracentesis. Cardiology and pulmonary medicine are following the patient. 02/21: Patient underwent left-sided thoracentesis with Dr. Garcia today with removal of 1100 ML's. Chest x-ray is pending. Patient states that her breathing status is much improved since the procedure was performed. Pulse ox is now 100% on room air. She has been afebrile, heart rate running in the 50s and 60s. White count 8.9, hemoglobin 10.5. Liver function tests remain elevated with AST 112, ALT 89 and alkaline phosphatase 270. Acute hepatitis panel came back negative. PT and OT are in place. Social work is following for discharge planning which will be subacute rehab at [facility] or [facility]. Review of Systems Constitutional: Reports anorexia, Reports chronic pain, Reports fatigue, Reports weakness, Reports weight loss Eyes: denies blurred vision, denies bulging eye, denies decreased vision Ears: bilateral: decreased hearing Ears, nose, mouth and throat: Denies dysphagia, denies vertigo, Denies neck lump , Denies sore throat, Denies voice changes Cardiovascular: Reports decreased exercise tolerance, denies lightheadedness, denies shortness of breath, Denies chest pain, Denies syncope Respiratory: Reports home oxygen, denies wheezing, Denies congestion, Denies cough, Denies cough with sputum, Denies sleep apnea, Denies snoring Gastrointestinal: Reports early satiety, Reports loss of appetite, Denies bloating, Denies BRBPR, Denies dyspepsia, Denies heartburn, Denies melena, Denies vomiting Genitourinary: Denies dysuria, Denies hematuria Menstruation: Reports postmenopausal Musculoskeletal: Reports frequent falls, Reports gait dysfunction Musculoskeletal: absent: ankle pain, ankle stiffness, ankle swelling, elbow pain , elbow stiffness, elbow swelling, foot pain, foot stiffness, foot swelling, hand pain, hand stiffness, hand swelling, hip pain, hip stiffness, hip swelling , knee pain, knee stiffness, knee swelling, shoulder pain, shoulder stiffness, shoulder swelling, wrist pain, wrist stiffness, wrist swelling Integumentary: Denies pruritus, Denies rash Neurological: Reports gait dysfunction, Reports memory loss, Reports weakness Psychiatric: Reports anxiety, Reports change in appetite, Reports memory loss Endocrine: Denies fatigue Objective - Vital Signs Vital signs: Vital Signs Temp 97.7 F 02/21/18 05:00 Pulse 60 02/21/18 07:42 Resp 18 02/21/18 05:00 BP 132/45 02/21/18 05:00 Pulse Ox 98 02/21/18 07:28 Intake & Output 02/20/18 02/21/18 02/21/18 18:59 06:59 18:59 Intake Total 590 Balance 590 Intake: Oral 590 Other: Voiding Method Toilet Toilet Diaper # Voids 2 - Exam General appearance: no distress, thin, resting in bed - EENT Eyes: anicteric sclerae, EOMI, PERRLA, no ptosis, no scleral icterus, normal appearance ENT: hard of hearing, NA/AT, pharyngeal erythema, thrush Ears: bilateral: normal - Neck Neck: no lymphadenopathy, normal ROM, no rigidity Carotids: bilateral: upstroke normal - Respiratory Respiratory: bilateral: diminished, prolonged expiration - Cardiovascular Rhythm: regular Heart sounds: normal: S1, S2 Abnormal Heart Sounds: systolic murmur - Gastrointestinal General gastrointestinal: normal bowel sounds, soft, no tenderness, no umbilical hernia, no ventral hernia - Integumentary Integumentary: normal - Neurologic Neurologic: CNII-XII intact - Musculoskeletal Musculoskeletal: generalized weakness, strength equal bilaterally - Psychiatric Psychiatric: A&O x's 3, appropriate affect, intact judgment & insight - Labs CBC & Chem 7: 02/21/18 08:56 02/21/18 08:56 Labs: Abnormal Lab Results - Last 24 Hours (Table) 02/21/18 02/21/18 Range/Units 08:56 08:56 RBC 3.40 L (3.80-5.40) m/uL Hgb 10.5 L (11.4-16.0) gm/dL Hct 33.1 L (34.0-46.0) % RDW 16.5 H (11.5-15.5) % Chloride 109 H (98-107) mmol/L Calcium 7.8 L (8.4-10.2) mg/dL AST 112 H (14-36) U/L ALT 89 H (9-52) U/L Alkaline Phosphatase 270 H (38-126) U/L Total Protein 4.9 L (6.3-8.2) g/dL Albumin 2.6 L (3.5-5.0) g/dL Assessment and Plan Plan: 1. Orthostatic hypotension. Discontinue lasix and potassium supplement, discontinue IV fluids, cardiology consult. 2. Acute kidney injury due to acute tubular necrosis. we will decrease losartan to 50 mg orally daily and IV fluids discontinued 3. Possible left lower lobe pneumonia and left-sided pleural effusion. will start Zosyn 3.375 gr IVPB q 6 h, Neb Rx and O2, Duoneb QID and will obtain Pulmonary consult from . Status post thoracentesis with Dr. Garcia. 4. Thrush. we will start Nystatin swish and swallow 5 ml po qid. 5. Recent UTI . resolved. 6. Elevated LFTs. will discontinue Lipitor and Amiodarone, US of the Liver normal. Acute hepatitis panel ordered. Continue to monitor. 7. CAD post CABGx3 . we will continue with ASA 81 mg orally daily, Lopressor 25 mg orally bid, held Lipitor due to elevated LFTS. Plavix started. 8. Hyperlipidemia. will hold off Lipitor. 9. Hypertension and hypertensive cardiovascular disease. will continue with Metoprolol 25 mg orally bid and will decrease Losartan to 50 mg orally daily. 10. COPD with FEV1 70% of predicted. we will continue with Duoneb Neb Rx and O2. 11. PAD. stable. 12. Debility with recurrent falls. we will consult PT/OT and possible ECF placement. 13. DVT prophylaxis. we will continue with Heparin 5000 units sc Q 12 h. 14. GI prophylaxis. we will continue with Pepcid 20 mg orally daily. 15. Paroxysmal atrial fibrillation. Plavix started. [facility] Impression and plan of care have been directed as dictated by the signing physician. Yecenia Holcomb nurse practitioner acting as scribe for signing physician.
--- NOTE | 2018-02-21 13:35 | P.PN ---
Subjective Progress Note Date: 02/21/18 Principal diagnosis: Left pleural effusion, shortness of breath This is a 77-year-old the female patient of Dr. Stanley, who was admitted to the hospital on 02/20/2018 for evaluation of progressive weakness, poor appetite, weight loss, and basically failure to thrive. Patient denied any chest pain or discomfort, fever or chills, no nausea, vomiting or diarrhea. 9 any significant shortness of breath. Did have a recent history of three-vessel coronary artery bypass grafting in December by Dr. Valencia, was discharged to [facility] inpatient rehab on 01/09/2018. Recently returned home, and the daughter states patient has been depressed, has poor appetite, hasn't been eating or drinking well. Chest x-ray showed left basilar airspace disease and a moderate- sized left-sided effusion. Chest ultrasound revealed 7.9 cm pocket on the left. Today patient underwent left-sided thoracentesis by Dr. Garcia, with evacuation of 1100 mL of pleural fluid, sent for pleural fluid analysis, cytology and cultures. Tolerated procedure very well, follow-up chest x-ray is pending. Room air pulse ox is 100%, patient is afebrile, hemodynamically stable , lung sounds are diminished breath sounds over left lower base, no rhonchi, no wheezes. Today's labs have been reviewed, WBC is 8.9, hemoglobin is 10.5, sodium is 138, potassium is 4.2, chloride is 109, BUN is 12, creatinine 0.73. Liver enzymes are as follows, AST is 112, ALT is 89, and alk phos is 270. Hepatitis panel was negative. Patient is on empiric antibiotics in the form of Zosyn. Denies any fever or chills. Objective - Vital Signs Vital signs: Vital Signs Temp 97.6 F 02/21/18 11:44 Pulse 61 02/21/18 11:44 Resp 16 02/21/18 11:44 BP 136/81 02/21/18 11:44 Pulse Ox 100 02/21/18 11:44 Intake & Output 02/20/18 02/21/18 02/21/18 18:59 06:59 18:59 Intake Total 590 Balance 590 Weight 58.967 kg Intake: Oral 590 Other: Voiding Method Toilet Toilet Toilet Diaper Diaper # Voids 2 - Exam GENERAL EXAM: Alert, pleasant, 77-year-old white female, comfortable in no apparent distress. HEAD: Normocephalic/atraumatic. EYES: Normal reaction of pupils, equal size. Conjunctiva pink, sclera white. NOSE: Clear with pink turbinates. THROAT: No erythema or exudates. NECK: No masses, no JVD, no thyroid enlargement, no adenopathy. CHEST: No chest wall deformity. Symmetrical expansion. LUNGS: Equal air entry with diminished breath sounds over left lower base, clear on the right, no rhonchi or wheezes CVS: Regular rate and rhythm, normal S1 and S2, no gallops, no murmurs, no rubs ABDOMEN: Soft, nontender. No hepatosplenomegaly, normal bowel sounds, no guarding or rigidity. EXTREMITIES: No clubbing, no edema, no cyanosis, 2+ pulses and upper and lower extremities. MUSCULOSKELETAL: Muscle strength and tone normal. SPINE: No scoliosis or deformity SKIN: No rashes CENTRAL NERVOUS SYSTEM: Alert and oriented -3. No focal deficits, tone is normal in all 4 extremities. PSYCHIATRIC: Alert and oriented -3. Appropriate affect. Intact judgment and insight. - Labs CBC & Chem 7: 02/21/18 08:56 02/21/18 08:56 Labs: Abnormal Lab Results - Last 24 Hours (Table) 02/21/18 02/21/18 Range/Units 08:56 08:56 RBC 3.40 L (3.80-5.40) m/uL Hgb 10.5 L (11.4-16.0) gm/dL Hct 33.1 L (34.0-46.0) % RDW 16.5 H (11.5-15.5) % Chloride 109 H (98-107) mmol/L Calcium 7.8 L (8.4-10.2) mg/dL AST 112 H (14-36) U/L ALT 89 H (9-52) U/L Alkaline Phosphatase 270 H (38-126) U/L Total Protein 4.9 L (6.3-8.2) g/dL Albumin 2.6 L (3.5-5.0) g/dL Assessment and Plan Plan: Assessment: #1. Left-sided pleural effusion, status post left-sided thoracentesis on 2018 with removal of 1100 mL of pleural fluid, calluses, culture and cytology pending #2. Coronary artery disease, with history of recent 3 vessel coronary artery bypass grafting in December #3. Generalized weakness, decreased appetite, weight loss, failure to thrive, depression of unclear etiology #4. Hypothyroidism #5. Hypertension #6. Remote history of pulmonary embolism #7. Chronic obstructive pulmonary disease and a slight FEV1 of 70% of predicted , currently stable #8. Chronic back pain #9. Peripheral vascular disease #10. Former smoker Plan: Patient data left-sided thoracentesis by Dr. Garcia today, tolerated procedure well, 1100 mL of pleural fluid was removed, samples were sent for analysis, cultures and cytology. Patient is breathing easier. Acute on room air, follow- up chest x-rays pending. Continue current medical treatment, will follow I performed a history & physical examination of the patient and discussed their management with my nurse practitioner, Raeann Mott. I reviewed the nurse practitioner's note and agree with the documented findings and plan of care. Lung sounds are diminished breath sounds at the left lower lobe. The findings and the impression was discussed with the patient. I attest to the documentation by the nurse practitioner. Time with Patient: Less than 30
--- NOTE | 2018-02-21 14:15 | XR ---
EXAMINATION TYPE: XR chest 1V portable DATE OF EXAM: 02/21/2018 Comparison: 02/19/2018 Clinical History: 77-year-old female S/P left thoracentesis Findings: Heart upper limits of normal in size. Median sternotomy wires are present post CABG clips. There is r esidual moderate left pleural effusion slightly decreased in the interval. No appreciable pneumothora x. Impression: Residual moderate left pleural effusion, decreased from prior exam. No appreciable pneumothorax.
[2018-02-21 16:04] LABS: Appearance,BF Hazy; Color,BF Yellow; Nucleated Cells, Body Fluid 2140 /uL; RBC, Body Fluid 3660 /uL
[2018-02-21 16:46] LABS: Mononuclear WBC,Body Fluid 90 %; Polynuclear WBC,Body Fluid 8 %; Total Cells Counted,Body Fluid 100
[2018-02-22] MEDS: HEPARIN SODIUM,PORCINE 5,000 UNIT/ML 1 ML VIAL SQ SCH ×3 (05:44→17:05)
[2018-02-22] MEDS: PIPERACILLIN-TAZOBACTAM 3.375 GM in SODIUM CHLORIDE 0.9% 100 ML IVPB SCH ×3 (05:44→17:03)
[2018-02-22] MEDS: CLOPIDOGREL 75 MG TAB PO SCH (07:47)
[2018-02-22] MEDS: FAMOTIDINE 20 MG TAB PO SCH (07:47)
[2018-02-22] MEDS: LOSARTAN 50 MG TAB PO SCH (07:47)
[2018-02-22] MEDS: ASPIRIN 81 MG PO SCH (07:47)
[2018-02-22] MEDS: METOPROLOL TARTRATE 25 MG TAB PO SCH ×2 (07:47→20:40)
[2018-02-22] MEDS: DOCUSATE 100 MG CAP PO SCH ×2 (07:47→20:40)
[2018-02-22] MEDS: buPROPion 75 MG TAB PO SCH ×2 (07:49→20:40)
[2018-02-22] MEDS: NYSTATIN 100,000 UNIT/ML SUSP 500,000 UNIT/5 ML CUP PO SCH ×4 (07:54→20:40)
[2018-02-22 08:11] LABS: ALT 91 U/L (9-52); AST 91 U/L (14-36); Albumin 2.4 g/dL (3.5-5.0); Alkaline Phosphatase 278 U/L (38-126); Anion Gap 5 mmol/L; Blood Urea Nitrogen 8 mg/dL (7-17); Calcium 7.6 mg/dL (8.4-10.2); Carbon Dioxide 23 mmol/L (22-30); Chloride 110 mmol/L (98-107); Glucose 76 mg/dL (74-99); Potassium 3.7 mmol/L (3.5-5.1); Sodium 138 mmol/L (137-145); Total Bilirubin 0.5 mg/dL (0.2-1.3); Total Protein 4.7 g/dL (6.3-8.2)
[2018-02-22] MEDS: IPRATROPIUM-ALBUTEROL 3 ML NEB INHALATION SCH ×4 (08:20→19:39)
--- NOTE | 2018-02-22 08:45 | XR ---
EXAMINATION TYPE: XR chest 1V portable DATE OF EXAM: 02/22/2018 COMPARISON: 02/21/2018 HISTORY: Status post left paracentesis TECHNIQUE: Single frontal view of the chest is obtained. FINDINGS: Bilateral consolidation and pleural effusion greater no sizable pneumothorax. Postsurgical changes are noted. Heart size stable. Additional no overt failure curvature the spine with multilevel degenerative changes. IMPRESSION: Bilateral consolidation and pleural effusion greater on the left.
[2018-02-22] MEDS ORDERED: LOSARTAN 50 MG TAB PO ONE (09:00)
--- NOTE | 2018-02-22 10:15 | P.DS ---
Providers Date of admission: 02/20/18 08:58 Expected date of discharge: 02/23/18 Attending physician: Jessica Stanley Consults: 02/19/18 20:48 Consult Physician Routine Consulting Provider: Chapo Miranda Consult Reason/Comments: Hypotension/CAD post CABG Do you want consulting provider notified?: Yes 02/19/18 20:54 Consult Physician Routine Consulting Provider: Milan Best Consult Reason/Comments: left pleural effusion Do you want consulting provider notified?: Yes Primary care physician: Jessica Stanley Hospital Course: This is a 77 year-old female one of Dr Stanley with a previous medical history significant for CAD post CABG x3 that was done recently with LOPES to LAD and SVG to OM1 and SVG to PDA that was done about a month ago, hypertension and hypertensive cardiovascular disease, hyperlipidemia, COPD, PAD, and remote history of pulmonary embolism, spondylosis of the Lumbar spine, patient was discharged from [facility] after she has had inpatient rehabilitation due medical debility post CABG and she has done well till recently when she has lost her appetite and according to her family she has not been eating or drinking much and had significant weight loss and mild short term memory loss, and had recurrent falls, on 02/06/2018 she was dizzy and was found to have orthostatic hypotension and was treated in the ER and was sent home on Macrobid 100 mg orally bid for 1 week and was given IV Fluid and was supposed to follow up with me in the office in 2 days but she never made an appointment , upon questioning her he stated that she has been very weak and he could not bring her to the office , patient has had [facility] and has been seen regularly by her nurse and eventually she was brought today to the ER for similar symptoms and she was not able to eat or drink much, had a CXR that showed left pleural effusion with consolidation that appeared worse and had low magnesium, with elevated LFTs and Orthostatic hypotension, she was give IV fluid and was started on IV ABX and held both Lipitor and Amiodarone and obtained cardiology consult and pulmonary consult, with PT evaluation,patient had some thrush in her mouth and will be started on Nystatin swish and swallow . 02/20: Patient remains in the in the emergency center waiting for a bed. Patient states that she had a hard time sleeping last night. Discussed case with cardiology and Plavix will be started. Patient's mouth is feeling better since she started on nystatin. Orthostatics are again positive today. Liver ultrasound showed no worrisome focal intrahepatic mass or intrahepatic ductal dilatation identified. Pulse ox is 96% on room air. Repeat lab work showed hemoglobin of 9.9, BUN 18 creatinine 1.14. AST 122, ALT 79, alkaline phosphatase 242. Albumin 2.4. Chest ultrasound showed a left pleural effusion pocket 7.9 cm and has been marked for thoracentesis. Cardiology and pulmonary medicine are following the patient. 02/21: Patient underwent left-sided thoracentesis with Dr. Garcia today with removal of 1100 ML's. Chest x-ray is pending. Patient states that her breathing status is much improved since the procedure was performed. Pulse ox is now 100% on room air. She has been afebrile, heart rate running in the 50s and 60s. White count 8.9, hemoglobin 10.5. Liver function tests remain elevated with AST 112, ALT 89 and alkaline phosphatase 270. Acute hepatitis panel came back negative. PT and OT are in place. Social work is following for discharge planning which will be subacute rehab at [facility] or [facility]. 02/22: Chest x-ray this morning shows bilateral consolidation and pleural effusion greater on the left. Cytology on pleural fluid is pending. Cultures on pleural fluid are in progress. BUN 8 and creatinine 0.62. AST 91, ALT 91, alkaline phosphatase 278. Patient states her breathing status is remaining stable. She denies having a bowel movement since admission. She is planned for discharge to [facility] tomorrow. 02/23: Echocardiogram reveals mild concentric left ventricular hypertrophy, trace mitral regurgitation, trace tricuspid regurgitation, trace pulmonary regurgitation, EF 45-50%. Pathology report on pleural fluid reveals mesothelial cells, macrophages and mixed inflammatory cells. No cytologically malignant cells identified. Pleural fluid cultures are in progress. Patient remains afebrile, pulse ox 95% on room air. Patient is cleared for discharge by consultants. Repeat orthostatics negative from last night. Patient will be discharged to [facility] today in stable condition. Discharge diagnoses: 1. Orthostatic hypotension. 2. Acute kidney injury due to acute tubular necrosis. 3. Possible left lower lobe pneumonia and left-sided pleural effusion status post thoracentesis. 4. Thrush. 5. Recent UTI. resolved. 6. Elevated LFTs most likely secondary to Amiodarone. 7. CAD post CABGx3. 8. Hyperlipidemia. Hold Lipitor. 9. Hypertension and hypertensive cardiovascular disease. 10. COPD with FEV1 70% of predicted. 11. PAD. stable. 12. Debility with recurrent falls. 13. Paroxysmal atrial fibrillation. Discharge plan: [facility] under the care of Dr. Stanley. Impression and plan of care have been directed as dictated by the signing physician. Yecenia Holcomb nurse practitioner acting as scribe for signing physician. Patient Condition at Discharge: Good Plan - Discharge Summary Discharge Rx Participant: No New Discharge Prescriptions: New Aspirin 81 mg PO DAILY chew Clopidogrel [Plavix] 75 mg PO DAILY #30 tab Famotidine [Pepcid] 20 mg PO DAILY tab Nystatin 100,000 Unit/ml Susp [Mycostatin Oral Susp] 500,000 unit PO QID # 100 ml Ammonium Lactate Lotion [Lac-Hydrin 12% Lotion] 1 applic TOPICAL BID applic Amoxicillin/Potassium Clav [Augmentin 875-125 Tablet] 1 each PO Q12HR #14 tab Furosemide [Lasix] 40 mg PO DAILY tab Continue Ipratropium-Albuterol Nebulize [Duoneb 0.5 mg-3 mg/3 ml Soln] 3 ml INHALATION RT-QID ampul.neb Losartan [Cozaar] 100 mg PO DAILY tab Metoprolol Tartrate [Lopressor] 25 mg PO BID tab rOPINIRole HCL [Requip] 0.25 mg PO HS Potassium Chloride ER [K-Dur 20] 20 meq PO DAILY Docusate [Colace] 100 mg PO BID buPROPion [Wellbutrin] 75 mg PO BID HYDROcodone/APAP 10-325MG [Onaka 10-325] 1 tab PO Q8H PRN #9 tab PRN Reason: Pain Discontinued Atorvastatin [Lipitor] 40 mg PO DAILY tab Furosemide [Lasix] 20 mg PO DAILY tab Amiodarone [Cordarone] 200 mg PO BID Discharge Medication List Ipratropium-Albuterol Nebulize [Duoneb 0.5 mg-3 mg/3 ml Soln] 3 ml INHALATION RT -QID ampul.neb 01/09/18 [Rx] Losartan [Cozaar] 100 mg PO DAILY tab 01/09/18 [Rx] Metoprolol Tartrate [Lopressor] 25 mg PO BID tab 01/09/18 [Rx] Docusate [Colace] 100 mg PO BID 02/19/18 [History] Potassium Chloride ER [K-Dur 20] 20 meq PO DAILY 02/19/18 [History] buPROPion [Wellbutrin] 75 mg PO BID 02/19/18 [History] rOPINIRole HCL [Requip] 0.25 mg PO HS 02/19/18 [History] Aspirin 81 mg PO DAILY chew 02/22/18 [Rx] Clopidogrel [Plavix] 75 mg PO DAILY #30 tab 02/22/18 [Rx] Famotidine [Pepcid] 20 mg PO DAILY tab 02/22/18 [Rx] HYDROcodone/APAP 10-325MG [[place] 10-325] 1 tab PO Q8H PRN #9 tab 02/22/18 [Rx] Nystatin 100,000 Unit/ml Susp [Mycostatin Oral Susp] 500,000 unit PO QID #100 ml 02/22/18 [Rx] Ammonium Lactate Lotion [Lac-Hydrin 12% Lotion] 1 applic TOPICAL BID applic 12/02 [Rx] Amoxicillin/Potassium Clav [Augmentin 875-125 Tablet] 1 each PO Q12HR #14 tab [Rx] Furosemide [Lasix] 40 mg PO DAILY tab 02/23/18 [Rx] Follow up Appointment(s)/Referral(s): Jessica Stanley MD [Primary Care Provider] - 1 Week (at [facility]) Chapo Miranda MD [STAFF PHYSICIAN] - 1 Week Oj Garcia DO [Doctor of Osteopathic Medicine] - 1 Week Discharge Disposition: TRANSFER TO SNF/F
--- NOTE | 2018-02-22 12:20 | P.PN ---
Subjective Progress Note Date: 02/22/18 Principal diagnosis: Left pleural effusion, shortness of breath This is a 77-year-old the female patient of Dr. Stanley, who was admitted to the hospital on 02/20/2018 for evaluation of progressive weakness, poor appetite, weight loss, and basically failure to thrive. Patient denied any chest pain or discomfort, fever or chills, no nausea, vomiting or diarrhea. 9 any significant shortness of breath. Did have a recent history of three-vessel coronary artery bypass grafting in December by Dr. Valencia, was discharged to [facility] inpatient rehab on 01/09/2018. Recently returned home, and the daughter states patient has been depressed, has poor appetite, hasn't been eating or drinking well. Chest x-ray showed left basilar airspace disease and a moderate- sized left-sided effusion. Chest ultrasound revealed 7.9 cm pocket on the left. Today patient underwent left-sided thoracentesis by Dr. Garcia, with evacuation of 1100 mL of pleural fluid, sent for pleural fluid analysis, cytology and cultures. Tolerated procedure very well, follow-up chest x-ray is pending. Room air pulse ox is 100%, patient is afebrile, hemodynamically stable , lung sounds are diminished breath sounds over left lower base, no rhonchi, no wheezes. Today's labs have been reviewed, WBC is 8.9, hemoglobin is 10.5, sodium is 138, potassium is 4.2, chloride is 109, BUN is 12, creatinine 0.73. Liver enzymes are as follows, AST is 112, ALT is 89, and alk phos is 270. Hepatitis panel was negative. Patient is on empiric antibiotics in the form of Zosyn. Denies any fever or chills. On 02/22/2018 patient seen again in follow-up on medical surgical floor. She is awake and alert, in no acute distress, breathing easier, room air oxygen is 95%, afebrile. Hemodynamically stable. Today's chest x-ray has been reviewed with Dr. Garcia, shows bilateral consolidation, and pleural effusion greater on the left. No pneumothorax. Pleural fluid cytology is pending, cultures in progress. Pleural fluid showed fluid eosinophils of 2, for some reason there is no LDH or protein or glucose, we'll see if they can add that to yesterday's pleural fluid sample that we send down. Otherwise patient remains stable, she could be discharged home from pulmonary perspective. Remains very significantly weak, and arrangements are in progress for placement to [facility] the [facility] Objective - Vital Signs Vital signs: Vital Signs Temp 97.1 F L 02/22/18 05:00 Pulse 68 02/22/18 12:02 Resp 16 02/22/18 05:00 BP 183/74 02/22/18 07:58 Pulse Ox 95 02/22/18 08:20 Intake & Output 02/21/18 02/22/18 02/22/18 18:59 06:59 18:59 Intake Total 100 640 Balance 100 640 Weight 58.967 kg Intake: Intake, IV Titration 100 100 Amount Piperacillin-Tazobactam 3 100 100 .375 gm In Sodium Chloride 0.9% 100 ml @ 25 mls/hr IVPB Q8HR [facility] Rx# :[id number] Oral 540 Other: Voiding Method Toilet Toilet Toilet Diaper Diaper Diaper Incontinent Incontinent # Voids 1 2 - Exam GENERAL EXAM: Alert, pleasant, 77-year-old white female, comfortable in no apparent distress. HEAD: Normocephalic/atraumatic. EYES: Normal reaction of pupils, equal size. Conjunctiva pink, sclera white. NOSE: Clear with pink turbinates. THROAT: No erythema or exudates. NECK: No masses, no JVD, no thyroid enlargement, no adenopathy. CHEST: No chest wall deformity. Symmetrical expansion. LUNGS: Equal air entry with diminished breath sounds over left lower base, clear on the right, no rhonchi or wheezes CVS: Regular rate and rhythm, normal S1 and S2, no gallops, no murmurs, no rubs ABDOMEN: Soft, nontender. No hepatosplenomegaly, normal bowel sounds, no guarding or rigidity. EXTREMITIES: No clubbing, no edema, no cyanosis, 2+ pulses and upper and lower extremities. MUSCULOSKELETAL: Muscle strength and tone normal. SPINE: No scoliosis or deformity SKIN: No rashes CENTRAL NERVOUS SYSTEM: Alert and oriented -3. No focal deficits, tone is normal in all 4 extremities. PSYCHIATRIC: Alert and oriented -3. Appropriate affect. Intact judgment and insight. - Labs CBC & Chem 7: 02/21/18 08:56 02/22/18 06:59 Labs: Abnormal Lab Results - Last 24 Hours (Table) 02/22/18 Range/Units 06:59 Chloride 110 H (98-107) mmol/L Calcium 7.6 L (8.4-10.2) mg/dL AST 91 H (14-36) U/L ALT 91 H (9-52) U/L Alkaline Phosphatase 278 H (38-126) U/L Total Protein 4.7 L (6.3-8.2) g/dL Albumin 2.4 L (3.5-5.0) g/dL Microbiology - Last 24 Hours (Table) 02/21/18 10:00 Gram Stain - Preliminary Pleural Fluid Body Fluid Culture - Preliminary 02/21/18 10:00 Acid Fast Bacilli Smear - Final Pleural Fluid Acid Fast Bacilli Culture - Preliminary 02/21/18 10:00 Fungal Culture - Preliminary Pleural Fluid Assessment and Plan Plan: Assessment: #1. Left-sided pleural effusion, status post left-sided thoracentesis on 2018 with removal of 1100 mL of pleural fluid, pleural fluid analysis, culture and cytology pending #2. Coronary artery disease, with history of recent 3 vessel coronary artery bypass grafting in December #3. Generalized weakness, decreased appetite, weight loss, failure to thrive, depression of unclear etiology #4. Hypothyroidism #5. Hypertension #6. Remote history of pulmonary embolism #7. Chronic obstructive pulmonary disease and a slight FEV1 of 70% of predicted , currently stable #8. Chronic back pain #9. Peripheral vascular disease #10. Former smoker Plan: Today's chest x-ray has been reviewed with Dr. Garcia, shows bilateral pleural effusions, greater on the left with adjacent atelectasis, clinically patient denies any distress, no dyspnea, no fever or chills, vital signs are stable, she is on room air, we will ask the lab to add LDH, protein, glucose to the pleural fluid sample sent down yesterday, pleural fluid cultures are pending, cytology is pending, clinically patient is stable, could be considered for discharge to subacute rehab today or tomorrow. I performed a history & physical examination of the patient and discussed their management with my nurse practitioner, Raeann Mott. I reviewed the nurse practitioner's note and agree with the documented findings and plan of care. Lung sounds are diminished breath sounds at the left lower lobe. The findings and the impression was discussed with the patient. I attest to the documentation by the nurse practitioner. Time with Patient: Less than 30
--- NOTE | 2018-02-22 12:46 | P.PN ---
Subjective This is a pleasant 77-year-old female past medical history significant for coronary artery disease status post three-vessel bypass grafting , hypertension, dyslipidemia, peripheral vascular disease with disease in the bilateral SFAs, COPD, former nicotine dependence and postoperative paroxysmal atrial fibrillation. She follows with Dr. Miranda in the office. She presented to the hospital with increased weakness, fatigue, poor appetite and shortness of breath. She underwent thoracentesis yesterday with Dr. Garcia with total of 1100cc of fluid removed. Yesterday she was feeling better however today she states she is starting to feel weak again. Repeat chest xray yesterday afternoon s/p thoracentesis showed moderated residual left pleural effusion, decreased from prior exam with no pneumothorax. Repeat chest xray this morning reveals b/l consolidation and pleural effusion greater on the left. Blood pressure 183/74 heart rate 62 maintaining oxygen saturation on room air. Laboratory data reviewed, sodium 138, potassium 3.7, creatinine 0.62, AST 91, ALT 91 and alkaline phosphatase 278. Currently maintained on aspirin 81 mg daily, Plavix 75 mg daily, losartan 50 mg daily, Lopressor 25 mg twice a day. Plan is for inpatient rehab upon discharge. GENERAL: This is a 77-year-old female in no apparent distress at the time of my examination. HEENT: Head is atraumatic, normocephalic. Pupils are equal, round. Sclerae anicteric. Conjunctivae are clear. Mucous membranes of the mouth are moist. Neck is supple. There is no jugular venous distention. No carotid bruit is heard. LUNGS: Clear to auscultation on the right. Left significantly diminished at the base with faint rales noted. No wheezes or rhonchi. No chest wall tenderness is noted on palpation or with deep breathing. HEART: Regular rate and rhythm without murmurs, rubs or gallops. S1 and S2 heard. EXTREMITIES: No evidence of peripheral edema and no calf tenderness noted. ASSESSMENT Orthostatic hypotension, resolved. Acute kidney injury, resoloved Dehydration Poor oral intake History of coronary artery disease s/p bypass surgery Paroxysmal atrial fibrillation s/p bypass surgery, not on evaporator helper anticoagulation Elevated liver enzymes Hypertension Dyslipidemia COPD Peripheral vascular disease PLAN Resume home dose of losartan 100 mg daily. Repeat echocardiogram and EKG prior to discharge. Resume lasix at 40 mg daily. Liver enzymes continue to remain elevated, consider possible GI evaluation. Continue to hold atorvastatin and amiodarone. Follow up with Dr. Miranda upon discharge. Nurse Practitioner note has been reviewed, I agree with a documented findings and plan of care. Patient was seen and examined. Objective - Vital Signs Vital signs: Vital Signs Temp 97.1 F L 02/22/18 05:00 Pulse 65 02/22/18 08:33 Resp 16 02/22/18 05:00 BP 183/74 02/22/18 07:58 Pulse Ox 95 02/22/18 08:20 Intake & Output 02/21/18 02/22/18 02/22/18 18:59 06:59 18:59 Intake Total 100 640 Balance 100 640 Weight 58.967 kg Intake: Intake, IV Titration 100 100 Amount Piperacillin-Tazobactam 3 100 100 .375 gm In Sodium Chloride 0.9% 100 ml @ 25 mls/hr IVPB Q8HR [facility] Rx# :[id number] Oral 540 Other: Voiding Method Toilet Toilet Toilet Diaper Diaper Diaper Incontinent Incontinent # Voids 1 2 - Labs CBC & Chem 7: 02/21/18 08:56 02/22/18 06:59 Labs: Abnormal Lab Results - Last 24 Hours (Table) 02/21/18 02/21/18 02/22/18 Range/Units 08:56 08:56 06:59 RBC 3.40 L (3.80-5.40) m/uL Hgb 10.5 L (11.4-16.0) gm/dL Hct 33.1 L (34.0-46.0) % RDW 16.5 H (11.5-15.5) % Chloride 109 H 110 H (98-107) mmol/L Calcium 7.8 L 7.6 L (8.4-10.2) mg/dL AST 112 H 91 H (14-36) U/L ALT 89 H 91 H (9-52) U/L Alkaline Phosphatase 270 H 278 H (38-126) U/L Total Protein 4.9 L 4.7 L (6.3-8.2) g/dL Albumin 2.6 L 2.4 L (3.5-5.0) g/dL Microbiology - Last 24 Hours (Table) 02/21/18 10:00 Acid Fast Bacilli Smear - Final Pleural Fluid Acid Fast Bacilli Culture - Preliminary 02/21/18 10:00 Gram Stain - Preliminary Pleural Fluid Body Fluid Culture - Preliminary 02/21/18 10:00 Fungal Culture - Preliminary Pleural Fluid
[2018-02-22] MEDS: FUROSEMIDE 40 MG TAB PO SCH (14:18)
[2018-02-22] MEDS: AMMONIUM LACTATE 12% LOTION 225 GM BTL TOPICAL SCH ×2 (14:21→20:42)
--- NOTE | 2018-02-22 14:40 | P.PN ---
Subjective Progress Note Date: 02/22/18 This is a 77 year-old female one of my patient with a previous medical history significant for CAD post CABG x3 that was done recently with LOPES to LAD and SVG to OM1 and SVG to PDA that was done about a month ago, hypertension and hypertensive cardiovascular disease, hyperlipidemia, COPD, PAD , and remote history of pulmonary embolism, spondylosis of the Lumbar spine, patient was discharged from [facility] after she has had inpatient rehabilitation due medical debility post CABG and she has done well till recently when she has lost her appetite and according to her family she has not been eating or drinking much and had significant weight loss and mild short term memory loss, and had recurrent falls, on 02/06/2018 she was dizzy and was found to have orthostatic hypotension and was treated in the ER and was sent home on Macrobid 100 mg orally bid for 1 week and was given IV Fluid and was supposed to follow up with me in the office in 2 days but she never made an appointment , upon questioning her he stated that she has been very weak and he could not bring her to the office , patient has had [facility] and has been seen regularly by her nurse and eventually she was brought today to the ER for similar symptoms and she was not able to eat or drink much, had a CXR that showed left pleural effusion with consolidation that appeared worse and had low magnesium, with elevated LFTs and Orthostatic hypotension, she was give IV fluid and was started on IV ABX and held both Lipitor and Amiodarone and obtained cardiology consult and pulmonary consult, with PT evaluation,patient had some thrush in her mouth and will be started on Nystatin swish and swallow . 02/20: Patient remains in the in the emergency center waiting for a bed. Patient states that she had a hard time sleeping last night. Discussed case with cardiology and Plavix will be started. Patient's mouth is feeling better since she started on nystatin. Orthostatics are again positive today. Liver ultrasound showed no worrisome focal intrahepatic mass or intrahepatic ductal dilatation identified. Pulse ox is 96% on room air. Repeat lab work showed hemoglobin of 9.9, BUN 18 creatinine 1.14. AST 122, ALT 79, alkaline phosphatase 242. Albumin 2.4. Chest ultrasound showed a left pleural effusion pocket 7.9 cm and has been marked for thoracentesis. Cardiology and pulmonary medicine are following the patient. 02/21: Patient underwent left-sided thoracentesis with Dr. Garcia today with removal of 1100 ML's. Chest x-ray is pending. Patient states that her breathing status is much improved since the procedure was performed. Pulse ox is now 100% on room air. She has been afebrile, heart rate running in the 50s and 60s. White count 8.9, hemoglobin 10.5. Liver function tests remain elevated with AST 112, ALT 89 and alkaline phosphatase 270. Acute hepatitis panel came back negative. PT and OT are in place. Social work is following for discharge planning which will be subacute rehab at [facility] or [facility]. 02/22: Chest x-ray this morning shows bilateral consolidation and pleural effusion greater on the left. Cytology on pleural fluid is pending. Cultures on pleural fluid are in progress. BUN 8 and creatinine 0.62. AST 91, ALT 91, alkaline phosphatase 278. Patient states her breathing status is remaining stable. She denies having a bowel movement since admission. She is planned for discharge to [facility] tomorrow. Review of Systems Constitutional: Reports anorexia, Reports chronic pain, Reports fatigue, Reports weakness Eyes: denies blurred vision, denies bulging eye, denies decreased vision Ears: bilateral: decreased hearing Ears, nose, mouth and throat: Denies dysphagia, denies vertigo, Denies neck lump , Denies sore throat, Denies voice changes Cardiovascular: Reports decreased exercise tolerance, denies lightheadedness, denies shortness of breath, Denies chest pain, Denies syncope Respiratory: Reports home oxygen, denies wheezing, Denies congestion, Denies cough, Denies cough with sputum, Denies sleep apnea, Denies snoring Gastrointestinal: Reports early satiety, Reports loss of appetite, Denies bloating, Denies BRBPR, Denies dyspepsia, Denies heartburn, Denies melena, Denies vomiting Genitourinary: Denies dysuria, Denies hematuria Menstruation: Reports postmenopausal Musculoskeletal: Reports frequent falls, Reports gait dysfunction Musculoskeletal: absent: ankle pain, ankle stiffness, ankle swelling, elbow pain , elbow stiffness, elbow swelling, foot pain, foot stiffness, foot swelling, hand pain, hand stiffness, hand swelling, hip pain, hip stiffness, hip swelling , knee pain, knee stiffness, knee swelling, shoulder pain, shoulder stiffness, shoulder swelling, wrist pain, wrist stiffness, wrist swelling Integumentary: Denies pruritus, Denies rash Neurological: Reports gait dysfunction, Reports memory loss, Reports weakness Psychiatric: Reports anxiety, Reports change in appetite, Reports memory loss Endocrine: Denies fatigue Objective - Vital Signs Vital signs: Vital Signs Temp 97.8 F 02/22/18 14:00 Pulse 60 02/22/18 14:00 Resp 18 02/22/18 14:00 BP 154/68 02/22/18 14:00 Pulse Ox 94 L 02/22/18 13:00 Intake & Output 02/21/18 02/22/18 02/22/18 18:59 06:59 18:59 Intake Total 100 640 Balance 100 640 Weight 58.967 kg Intake: Intake, IV Titration 100 100 Amount Piperacillin-Tazobactam 3 100 100 .375 gm In Sodium Chloride 0.9% 100 ml @ 25 mls/hr IVPB Q8HR [facility] Rx# :[id number] Oral 540 Other: Voiding Method Toilet Toilet Toilet Diaper Diaper Diaper Incontinent Incontinent # Voids 1 2 - Exam General appearance: no distress, thin, resting in bed, no respiratory distress noted. - EENT Eyes: anicteric sclerae, EOMI, PERRLA, no ptosis, no scleral icterus, normal appearance ENT: hard of hearing, NA/AT, pharyngeal erythema, thrush Ears: bilateral: normal - Neck Neck: no lymphadenopathy, normal ROM, no rigidity Carotids: bilateral: upstroke normal - Respiratory Respiratory: bilateral: diminished, prolonged expiration - Cardiovascular Rhythm: regular Heart sounds: normal: S1, S2 Abnormal Heart Sounds: systolic murmur - Gastrointestinal General gastrointestinal: normal bowel sounds, soft, no tenderness, no umbilical hernia, no ventral hernia - Integumentary Integumentary: normal - Neurologic Neurologic: CNII-XII intact - Musculoskeletal Musculoskeletal: generalized weakness, strength equal bilaterally - Psychiatric Psychiatric: A&O x's 3, appropriate affect, intact judgment & insight - Labs CBC & Chem 7: 02/21/18 08:56 02/22/18 06:59 Labs: Abnormal Lab Results - Last 24 Hours (Table) 02/22/18 02/22/18 Range/Units 06:59 06:59 Chloride 110 H (98-107) mmol/L Calcium 7.6 L (8.4-10.2) mg/dL AST 91 H (14-36) U/L ALT 91 H (9-52) U/L Alkaline Phosphatase 278 H (38-126) U/L Lactate Dehydrogenase 866 H (313-618) U/L Total Protein 4.7 L (6.3-8.2) g/dL Albumin 2.4 L (3.5-5.0) g/dL Microbiology - Last 24 Hours (Table) 02/21/18 10:00 Gram Stain - Preliminary Pleural Fluid Body Fluid Culture - Preliminary 02/21/18 10:00 Acid Fast Bacilli Smear - Final Pleural Fluid Acid Fast Bacilli Culture - Preliminary 02/21/18 10:00 Fungal Culture - Preliminary Pleural Fluid Assessment and Plan Plan: 1. Orthostatic hypotension. Discontinue lasix and potassium supplement, discontinue IV fluids, cardiology consult. 2. Acute kidney injury due to acute tubular necrosis. we will decrease losartan to 50 mg orally daily and IV fluids discontinued 3. Possible left lower lobe pneumonia and left-sided pleural effusion. will start Zosyn 3.375 gr IVPB q 6 h, Neb Rx and O2, Duoneb QID and will obtain Pulmonary consult from . Status post thoracentesis with Dr. Garcia. 4. Thrush. we will start Nystatin swish and swallow 5 ml po qid. 5. Recent UTI . resolved. 6. Elevated LFTs. will discontinue Lipitor and Amiodarone, US of the Liver normal. Acute hepatitis panel ordered. Continue to monitor. 7. CAD post CABGx3 . we will continue with ASA 81 mg orally daily, Lopressor 25 mg orally bid, held Lipitor due to elevated LFTS. Plavix started. 8. Hyperlipidemia. will hold off Lipitor. 9. Hypertension and hypertensive cardiovascular disease. will continue with Metoprolol 25 mg orally bid and will decrease Losartan to 50 mg orally daily. 10. COPD with FEV1 70% of predicted. we will continue with Duoneb Neb Rx and O2. 11. PAD. stable. 12. Debility with recurrent falls. we will consult PT/OT and possible ECF placement. 13. DVT prophylaxis. we will continue with Heparin 5000 units sc Q 12 h. 14. GI prophylaxis. we will continue with Pepcid 20 mg orally daily. 15. Paroxysmal atrial fibrillation. Plavix started. [facility] . Impression and plan of care have been directed as dictated by the signing physician. Yecenia Holcomb nurse practitioner acting as scribe for signing physician.
--- NOTE | 2018-02-22 19:25 | ECHOF ---
Referral Reason:repeat after bypass MEASUREMENTS -------- HEIGHT: 157.5 cm WEIGHT: 59.0 kg BP: 183/74 IVSd: 1.2 cm (0.6 - 1.1) LVIDd: 2.5 cm (3.9 - 5.3) LVPWd: 1.1 cm (0.6 - 1.1) IVSs: 1.7 cm LVIDs: 2.2 cm LVPWs: 1.5 cm Ao Diam: 3.2 cm (2.0 - 3.7) AV Cusp: 2.1 cm (1.5 - 2.6) LA Diam: 2.8 cm (2.7 - 3.8) MV EXCURSION: 14.967 mm (> 18.000) MV EF SLOPE: 60 mm/s (70 - 150) EPSS: 0.5 cm MV E Lars: 0.65 m/s MV DecT: 247 ms MV A Lars: 0.93 m/s MV E/A Ratio: 0.70 RAP: 5.00 mmHg RVSP: 11.42 mmHg FINDINGS -------- Sinus rhythm. This was a technically good study. The left ventricular size is normal. There is mild concentric left ventricular hypertrophy. Overa ll left ventricular systolic function is mildly impaired with, an EF between 45 - 50 %. Mid to basa l inferiorlateral is hypokinetic The right ventricle is normal in size and function. The left atrium is normal in size. The right atrium is normal in size. Aortic valve is trileaflet and is mildly thickened. The mitral valve leaflets are mildly thickened. There is trace mitral regurgitation. Trace tricuspid regurgitation present. The right ventricular systolic pressure, as measured by Dopp ler, is 11.42mmHg. Trace/mild (physiologic) pulmonic regurgitation. The aortic root size is normal. Normal inferior vena cava with normal inspiratory collapse consistent with estimated right atrial pre ssure of 5 mmHg. There is no pericardial effusion. Moderate Pleural Effusion. CONCLUSIONS -------- 1. Sinus rhythm. 2. This was a technically good study. 3. The left ventricular size is normal. 4. There is mild concentric left ventricular hypertrophy. 5. Mid to basal inferiorlateral is hypokinetic 6. The right ventricle is normal in size and function. 7. The left atrium is normal in size. 8. The right atrium is normal in size. 9. Aortic valve is trileaflet and is mildly thickened. 10. The mitral valve leaflets are mildly thickened. 11. There is trace mitral regurgitation. 12. Trace tricuspid regurgitation present. 13. The right ventricular systolic pressure, as measured by Doppler, is 11.42mmHg. 14. Trace/mild (physiologic) pulmonic regurgitation. 15. The aortic root size is normal. 16. Normal inferior vena cava with normal inspiratory collapse consistent with estimated right atrial pressure of 5 mmHg. [employer] IN[employer]CTOR: Susu iPerce RDCS
[2018-02-23] MEDS: HEPARIN SODIUM,PORCINE 5,000 UNIT/ML 1 ML VIAL SQ SCH ×2 (00:01→10:29)
[2018-02-23 05:45] LABS: Total Protein, Body Fluid 2805 mg/dL
[2018-02-23] MEDS: IPRATROPIUM-ALBUTEROL 3 ML NEB INHALATION SCH ×2 (08:13→12:08)
[2018-02-23] MEDS ORDERED: LOSARTAN 50 MG TAB PO SCH (09:00)
[2018-02-23 10:26] LABS: ALT 83 U/L (9-52); AST 80 U/L (14-36); Albumin 2.5 g/dL (3.5-5.0); Alkaline Phosphatase 267 U/L (38-126); Anion Gap 5 mmol/L; Blood Urea Nitrogen 8 mg/dL (7-17); Calcium 7.7 mg/dL (8.4-10.2); Carbon Dioxide 30 mmol/L (22-30); Chloride 104 mmol/L (98-107); Glucose 84 mg/dL (74-99); Potassium 3.6 mmol/L (3.5-5.1); Sodium 139 mmol/L (137-145); Total Bilirubin 0.5 mg/dL (0.2-1.3); Total Protein 4.7 g/dL (6.3-8.2)
[2018-02-23] MEDS: FUROSEMIDE 40 MG TAB PO SCH (10:28)
[2018-02-23] MEDS: CLOPIDOGREL 75 MG TAB PO SCH (10:28)
[2018-02-23] MEDS: FAMOTIDINE 20 MG TAB PO SCH (10:28)
[2018-02-23] MEDS: DOCUSATE 100 MG CAP PO SCH (10:28)
[2018-02-23] MEDS: buPROPion 75 MG TAB PO SCH (10:29)
[2018-02-23] MEDS: METOPROLOL TARTRATE 25 MG TAB PO SCH (10:29)
[2018-02-23] MEDS: ASPIRIN 81 MG PO SCH (10:29)
[2018-02-23] MEDS: NYSTATIN 100,000 UNIT/ML SUSP 500,000 UNIT/5 ML CUP PO SCH ×2 (10:29→12:46)
[2018-02-23] MEDS: AMMONIUM LACTATE 12% LOTION 225 GM BTL TOPICAL SCH (10:30)
[2018-02-23] MEDS: PIPERACILLIN-TAZOBACTAM 3.375 GM in SODIUM CHLORIDE 0.9% 100 ML IVPB SCH ×3 (10:30)
[2018-02-23 11:47] VITALS: BP 134/64; PULSE 64; RESP 17; TEMP 97
== END 2018-02-23 13:15 | DRG 186 ==
LOC: EC 11:41 → 1SOBS 16:01 → OBSVTOIN 02-20 08:58 → 3NMEDONC 02-20 15:46
PROVIDERS: ADMIT Internal Medicine; ATTEND Internal Medicine
PROC: 0W9B3ZZ Drainage of Left Pleural Cavity, Percutaneous Approach (ICD-10-PCS; principal; 2018-02-21)
DX: J90 Pleural effusion, not elsewhere classified (principal); J18.9 Pneumonia, unspecified organism; N17.0 Acute kidney failure with tubular necrosis; B37.0 Candidal stomatitis; E03.9 Hypothyroidism, unspecified; E78.5 Hyperlipidemia, unspecified; E86.0 Dehydration; F32.9 Major depressive disorder, single episode, unspecified; G89.29 Other chronic pain; I11.9 Hypertensive heart disease without heart failure; I25.10 Atherosclerotic heart disease of native coronary artery without angina pectoris; I48.0 Paroxysmal atrial fibrillation; I70.203 Unspecified atherosclerosis of native arteries of extremities, bilateral legs; I95.1 Orthostatic hypotension; J44.9 Chronic obstructive pulmonary disease, unspecified; K21.9 Gastro-esophageal reflux disease without esophagitis; M19.90 Unspecified osteoarthritis, unspecified site; R29.6 Repeated falls; R62.7 Adult failure to thrive; R79.89 Other specified abnormal findings of blood chemistry; T46.2X5A Adverse effect of other antidysrhythmic drugs, initial encounter; Z79.02 Long term (current) use of antithrombotics/antiplatelets; Z79.82 Long term (current) use of aspirin; Z79.899 Other long term (current) drug therapy; Z80.1 Family history of malignant neoplasm of trachea, bronchus and lung; Z82.49 Family history of ischemic heart disease and other diseases of the circulatory system; Z86.711 Personal history of pulmonary embolism; Z87.891 Personal history of nicotine dependence; Z90.710 Acquired absence of both cervix and uterus; Z95.1 Presence of aortocoronary bypass graft; Z96.1 Presence of intraocular lens; Z98.41 Cataract extraction status, right eye; Z98.42 Cataract extraction status, left eye
CPT/HCPCS: 36415; 71045; 71046; 76604; 76705; 80053; 80074; 81001; 82550; 82553; 82945; 83605; 83615; 83735; 84157; 84484; 85025; 85027; 85610; 85730; 87070; 87102; 87116; 87205; 87206; 87252; 87496; 87498; 87502; 87529; 87634; 87798; 88108; 88305; 89050; 90732; 93005; 93306; 94640; 94760; 96361; 96365; 96366; 96372; 96375; 99285

== ENCOUNTER 2018-04-18 08:33 | Emergency (ER) | payer MEDICARE, BC ==
[2018-04-18] MEDS ORDERED: DIPH,PERTUS(ACELL)TETVAC-LF 0.5 ML VIAL IM ONE (08:38)
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
[2018-04-18 08:44] VITALS: RESP 19
--- NOTE | 2018-04-18 09:16 | CT ---
EXAMINATION TYPE: CT brain cspine wo con DATE OF EXAM: 04/18/2018 COMPARISON: CT brain December 06, 2017. HISTORY: Fall injury with headache and neck pain. CT DLP: 1241.9 mGycm. Automated Exposure Control for Dose Reduction was Utilized. TECHNIQUE: CT scan of the head and cervical spine are performed without contrast. FINDINGS: There is no acute intracranial hemorrhage or midline shift identified. There is mild vent ricular and sulcal prominence redemonstrated. There is confluent areas of low-attenuation in the deep and periventricular white matter redemonstrated presumed on basis of advanced chronic small vessel i schemic change. The globes are intact and the visualized sinuses are clear. The calvarium is intact. Cervical spine is visualized in its entirety from C1 through upper thoracic levels and demonstrates s atisfactory loss of normal cervical and scoliotic curvature alignment without evidence of acute fract ure or dislocation. Prevertebral soft tissue appears within normal limits. The C1-C2 articulation i s within normal limits on the coronal images. Vertebral body heights are maintained. There is mild t o moderate spurring and disc space narrowing C4-C5 and C5-C6 levels. Posterior spur disc complexes ar e effacing anterior thecal sac at these levels. Review of axial images shows multilevel uncovertebral facet degenerative changes contributing to mult ilevel neural foraminal narrowing most prominent left C3-C4 and right C4-C5 levels. Thyroid gland is felt within normal limits. There is partial visualization of suspected moderate size left pleural eff usion. This is noted on most recent chest x-ray February 22, 2018 and is presumed stable. Post CABG louise nges with mediastinal clips and sternal wires is partially imaged. There is background moderate emphy sematous change noted in visualized upper lungs. IMPRESSION: 1. There is no acute fracture or dislocation evident in the cervical spine. 2. No acute intracranial hemorrhage or midline shift is seen.
[2018-04-18] MEDS ORDERED: TOPICAL SKIN ADHESIVE 1 EACH AMP TOPICAL ONE ×2 (09:26→11:15)
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
[2018-04-18] MEDS ORDERED: LIDOCAINE 1% INJ 10MG/ML (20 ML MDV) SQ ONE (11:05)
--- NOTE | 2018-04-18 11:07 | XR ---
EXAMINATION TYPE: XR KUB DATE OF EXAM: 04/18/2018 10:54 AM CLINICAL HISTORY: Constipation for one week. TECHNIQUE: Two supine KUB images of the abdomen are obtained. COMPARISON: None. FINDINGS: Gas is seen in nondistended stomach. Gas is identified in nondistended small bowel loops mo st prominent in the left abdomen Gas and fecal material is seen in non-distended colon along the jennifer phery. Amount of fecal material is prominent in the rectum. There is overlying vascular calcification in the aorta extending into iliac branch vessels. There is mild to moderate narrowing and mild spurr ing of both hip joints. Multilevel spurring in the spine is present. IMPRESSION: Overall nonobstructive bowel gas pattern. Note is made of moderate to severe rectal colonic fecal sta sis.
[2018-04-18 12:47] VITALS: BP 159/71; PULSE 71; TEMP 98.1
== END 2018-04-18 12:47 | disposition home or self-care (01) ==
LOC: EC 08:33
DX: S01.21XA Laceration without foreign body of nose, initial encounter (principal); S51.812A Laceration without foreign body of left forearm, initial encounter; S81.812A Laceration without foreign body, left lower leg, initial encounter; K59.00 Constipation, unspecified; I25.10 Atherosclerotic heart disease of native coronary artery without angina pectoris; I10 Essential (primary) hypertension; Z23 Encounter for immunization; Z86.711 Personal history of pulmonary embolism; Z87.891 Personal history of nicotine dependence; Z79.890 Hormone replacement therapy; Z79.899 Other long term (current) drug therapy; Z88.8 Allergy status to other drugs, medicaments and biological substances; W01.10XA Fall on same level from slipping, tripping and stumbling with subsequent striking against unspecified object, initial encounter; Y92.002 Bathroom of unspecified non-institutional (private) residence as the place of occurrence of the external cause
CPT/HCPCS: 70160; 74018; 72125; 70450; 90715; 99284; 12011; 12002; 90471; J2001